=== PATIENT | male | born 1965 | race Caucasian/White ===

== ENCOUNTER 2020-09-16 11:15 | Outpatient (RCR) | payer BC, MEDICAID, SELFPAY ==
[2020-09-13 11:31] VITALS: BP 192/102; PULSE 75; RESP 18; TEMP 36.6; BMI 27.9
--- NOTE | 2020-09-13 13:43 | PCM.WC.HP ---
History of Present Illness Date of Service: 09/13/20 Chief Complaint: ulcer left medial ankle History of Wound: Michael is a 54 yo gentleman that presents to the wound healing center for evaluation and treatment of an area of his left medial ankle that has been draining intermittently over the last 6 months. He has been treated with oral antibiotics and has been using topical Bactroban for a few weeks and then Silvadene over the last several weeks without healing of the area. He denies very much drainage but there is discoloration of the area and itching with blistering at times. He does use chewing tobacco but is otherwise healthy and is not on any medications currently and has been off of work for several months awaiting a surgery for an inguinal hernia repair and has not been able to have this done due to concern for infection and open wound of the left medial ankle. He denies fever, chills, increased pain, odor. [facility] Home Medications multivitamin with minerals [Vitamin And Mineral] 1 cap PO DAILY 09/13/20 [History Last Taken Unknown] Allergy/AdvReac Type Severity Reaction Status Date / Time No Known Allergies Allergy Verified 09/13/20 11:27 Social History Smoking Status: Light Smoker (<10/day) ROS Constitutional Constitutional: Denies chills, fatigue, fever(s) or headache(s) Eyes Eyes: Denies blurry vision or loss of vision ENT HEENT: Denies dizziness, ear pain or headache(s) Cardiovascular Cardiovascular: Reports leg edema; Denies chest pain, claudication, dizziness or dyspnea Respiratory/Chest Respiratory/Chest: Denies cough or dyspnea Gastrointestinal Gastrointestinal: Denies abdominal pain, diarrhea, nausea or vomiting Genitourinary Genitourinary: Denies dysuria Musculoskeletal Musculoskeletal: Denies extremity pain Integumentary Integumentary: Reports erythema, pruritus, rash and skin ulcer Neurologic Neurologic: Denies dizziness or loss of vision Psychiatric Psychiatric: Denies depression, difficulty concentrating, homicidal ideation, irritability or suicidal thoughts Endocrine Endocrinology: Denies cold intolerance, heat intolerance, polydipsia or polyuria Hematologic/Lymphatic Hematologic/Lymphatic: Denies easy bleeding or easy bruising Vital Signs Vital Signs Vital Signs: 09/13/20 11:31 Temperature 97.8 F Temperature Source Temporal Pulse Rate 75 Respiratory Rate 18 Blood Pressure 192/102 H Blood Pressure Mean 132 Blood Pressure Source Monitor Blood Pressure Position Sitting Blood Pressure Location Left Arm Weight Weight: 90.904 kg Body Mass Index (BMI) 27.9 Physical Exam Const alert, oriented x3, no apparent distress and healthy appearing General Appearance: cooperative Nutritional Appearance: overweight HEENT normocephalic and head/scalp atraumatic Mouth: oral and palatal mucosa normal Eyes EOMs intact bilaterally General Eye: normal appearance of both eyes Neck no lymphadenopathy Lymph Lymphatic: no lymphadenopathy noted Chest Chest: symmetrical chest wall rise Resp normal respiratory effort Effort and Inspection: able to speak in complete sentences Auscultation: clear to auscultation bilaterally Cardio regular rate and regular rhythm GI normal to inspection, nondistended, normoactive bowel sounds Extremity General Extremity: edema left lower extremity mild Skin General Skin Exam: venous stasis and dermatitis Wounds: wounds noted Wound Narrative: in clinical panel - skin breakdown but no ulcer Neuro oriented x3 Speech: speech normal Debridement Note Debridement Note Post-Debridement Measurements and Additional Note: Post-Debridement Measurements/Treatment KARMA - Nurse 1 - General Ulcer Assessment Start: 09/13/20 11:27 Freq: Status: Active Protocol: EDWIGE Activity Type Activity Date Activity User E-Sign Co-Sign Detail Recorded Client Recorded Date Recorded By Document 09/13/20 11:31 [id number] 09/13/20 11:34 RB 09/13/20 11:31 - Today's Visit Information Type of service Initial Visit Arrival Mode Ambulatory Transfer Assistance None Patient Identification Verified (Name & Yes ) Patient Requires Transmission-Based No Precautions Height and Weight Height 5 ft 11 in Weight 90.904 kg Weight in Pounds 200.4 lbs Body Mass Index (BMI) 27.9 BMI Classification Overweight BSA - Andrés 2.11 Vital Signs Temperature (97.8 F-99.1 F) 97.8 F Temperature Source Temporal Pulse Rate (60-100) 75 Pulse Location Monitor Respiratory Rate (12-18) 18 Respiratory rate source Observation Blood Pressure (90/60-120/80) 192/102 H Blood Pressure Mean 132 Source Monitor Position Sitting Blood Pressure Location Left Arm History Since Last Visit- (Skip if this is Patient's initial visit) Have you changed medications since your No last visit? Any new allergies or adverse reactions No Had a fall/change in ADL's that may No increase risk of falls Signs or symptoms of abuse and/or No neglect since last visit Have you been in the hospital since your No last visit? Has dressing in place as prescribed Yes Has compression in place as prescribed No Has offloadiing in place as prescribed No Experienced any changes in pain level or No management Left Footwear Regular Shoe Right Footwear Regular Shoe Pain Scale: 0-10 Numeric Is Patient Pain Free? Yes Communication Assessment Preferred language Swedish Project Superintendent Required No Able to Read Yes Able to Write Yes Communication Tools None Right Hearing Abillity Normal Left Hearing Abillity Normal Visual Assistive Devices Glasses Teaching Assessment Preferences Verbal,Written, Demonstration Barriers to Learning None Readiness To Learn Good Willingness to Engage in Self Management Med Activies Readiness to Engage in Self Management Med Activities Anxiety Level Calm Cooperation Cooperative Perception Coherent Interest in Health Problem Asks Questions Education Importance Acknowledges Need Does Patient Smoke tobacco or other No substances Smoking Status Light Smoker (< 10/day) Is Patient Diabetic Yes Functional Assessment Recent Decline in Ability to Perform Denies Any Declines Assistive Device With Patient No Culture/Advent/Finishing Wire Sawyer Cultural/Advent Needs that may affect No Treatment Plan Would you allow our hospital director of social media marketing to No meet you for the purpose of spiritual/ emotional support? Finishing Wire Sawyer to contact place of sabianist No Teaching: Wound Center *Welcome to the Wound Center -Person Taught Patient,Family -Teaching Method Discussion, Demonstration -Response to teaching Verbalize understanding WC - Nurse 1 - General Ulcer Measurement Start: 09/13/20 11:27 Freq: Status: Active Protocol: Activity Type Activity Date Activity User E-Sign Co-Sign Detail Recorded Client Recorded Date Recorded By Document 09/13/20 11:34 SATURNINO [id number] 09/13/20 11:36 RB 09/13/20 11:34 Wound Center Nurse 1 1. L medial ankle -Combined with other wound No -Current Size (cm) - Length 0.1 -Current Size (cm) - Width 0.1 -Current Size (cm) - Depth 0.1 -Total Square Cm 0.01 -Photo Taken No -Tunneling No -Undermining/Tunneling No -Circular Undermining No -Exudate Amt Small -Exudate Type Serosanguineous -Wound Margin Flat & Intact -Granulation Amt Large (67-100%) -Granulation Quality [place],Red -Slough/Fibrin Yes -Necrosis Amt Small (1-33%) -Necrotic Tissue Type Adherent Slough -Structure Exposed N/A -Texture (Gloria-wound Skin Appearance) Excoriation -Moisture (Gloria-wound Skin Appearance) Assessed -Color (Gloria-wound Skin Appearance) Hemosiderin Staining -Tenderness on Palpation (Gloria-wound No Skin Appearance) -Ulcer Cleansing Wound Cleanser -Foul Odor after Cleansing No -Anesthetic Used 4% Lidocaine Solution Lower Limb Edema Present Yes Right Calf (cm) 36 Right Ankle (cm) 22 Left Calf (cm) 38.5 Left Ankle (cm) 24 WC - Nurse 2 - General Ulcer CM Notes Start: 09/13/20 11:27 Freq: Status: Active Protocol: Activity Type Activity Date Activity User E-Sign Co-Sign Detail Recorded Client Recorded Date Recorded By Document 09/13/20 11:45 MW [id number] 09/13/20 12:01 MW 09/13/20 11:45 Wound Center Nurse 2 1. L medial ankle -Time 11:45 -Correct Patient Yes -Correct Side, Site, Position Yes -Correct Procedure Yes -Procedure Performed No -Tunneling No -Undermining/Tunneling No -Circular Undermining No -Wound/Ulcer Outcome Not Healed -Ulcer Cleansing Rinsed/ Irrigated with Saline -Foul Odor after Cleansing No -Bioengineered Tissue No -Bleeding Controlled with Pressure -Offloading No -Treatment Response Procedure Tolerated Well Pain Scale: 0-10 Numeric Is Patient Pain Free? Yes - Nurse 3 - General Ulcer D/C NN Start: 09/13/20 11:27 Freq: Status: Active Protocol: Activity Type Activity Date Activity User E-Sign Co-Sign Detail Recorded Client Recorded Date Recorded By Document 09/13/20 12:13 DL [id number] 09/13/20 12:15 DL 09/13/20 12:13 Wound Care Nurse 3 1. L medial ankle -Ulcer Cleansing Rinsed/ Irrigated with Saline -Foul Odor after Cleansing No -Other Dressing Unna Boot Left -Multi-Layered Wrap Application Unna Boot - Left ($) Treatment Response Procedure Tolerated Well Pain Scale: 0-10 Numeric Is Patient Pain Free? Yes WC - Visit Discharge Discharge Condition Stable Ambulatory Status Ambulatory Transportation Private Auto Wound debrided: left medial ankle Laterality: Left No debridement was completed: No debridement was completed today (there is no slough or devitalized tissue present) Assessment/Plan Assessment/Plan (1) Venous stasis dermatitis of left lower extremity: CODE(S): I87.2 - Venous insufficiency (chronic) (peripheral) (2) Venous insufficiency of left lower extremity: CODE(S): I87.2 - Venous insufficiency (chronic) (peripheral) (3) PAD (peripheral artery disease): CODE(S): I73.9 - Peripheral vascular disease, unspecified PLAN: Michael's left medial ankle is evaluated today and no debridement is necessary. There is no evidence of infection or ulceration at this time. There is evidence of skin breakdown from edema and chronic venous stasis dermatitis of his medial ankle. Unna boot treatment will be applied today and will have him return in 1 week and have him use ABD and tubigrip compression for 1 week with return to wound center for re-check in 2 weeks. He was advised to call if he develops increased pain or drainage, fever or chills.
[2020-09-16 11:23] VITALS: BP 155/104; PULSE 86; RESP 18; TEMP 36.4; BMI 27.9
--- NOTE | 2020-09-27 13:32 | PN.PCM_ITS ---
History of Present Illness Date of Service: 09/27/20 Chief Complaint: ulcer left medial ankle History of Wound: Michael is a 54 yo gentleman that presents to the wound healing center for evaluation and treatment of an area of his left medial ankle that has been draining intermittently over the last 6 months. He has been treated with oral antibiotics and has been using topical Bactroban for a few weeks and then Silvadene over the last several weeks without healing of the area. He denies very much drainage but there is discoloration of the area and itching with blistering at times. He does use chewing tobacco but is otherwise healthy and is not on any medications currently and has been off of work for several months awaiting a surgery for an inguinal hernia repair and has not been able to have this done due to concern for infection and open wound of the left medial ankle. He denies fever, chills, increased pain, odor. Subjective Subjective Michael returns today for re-evaluation and follow up of treatment for his left medial ankle. He was scheduled to have vascular testing this week but he was ill and this has been rescheduled for 10/03/2020. He tolerated treatment with UNNA boot and his left medial ankle was doing well until 2 days ago when it became itchy and he scratched it and had skin breakdown and some intermittent serous drainage. He denies fever or chills, odor, or drainage. He is scheduled for hernia surgery on Wednesday09/30/20. Objective Data Objective Data Vital Signs: Vital Signs Temp Pulse Resp BP 97.6 F L 86 18 155/104 H 09/16/20 11:23 09/16/20 11:23 09/16/20 11:23 09/16/20 11:23 Weight: 90.904 kg Body Mass Index (BMI) 27.9 Physical Exam Const alert, oriented x3 and no apparent distress General Appearance: cooperative HEENT normocephalic and head/scalp atraumatic Mouth: oral and palatal mucosa normal Resp normal respiratory effort Cardio regular rate and regular rhythm Skin no wounds General Skin Exam: venous stasis and dermatitis Neuro Speech: speech normal Psych affect normal and speech normal Appearance: grossly normal Debridement Note Debridement Note Post-Debridement Measurements and Additional Note: Post-Debridement Measurements/Treatment WC - Nurse 1 - General Ulcer Assessment Start: 09/13/20 11:27 Freq: Status: Active Protocol: WC.LOWEXT Activity Type Activity Date Activity User E-Sign Co-Sign Detail Recorded Client Recorded Date Recorded By Document 09/13/20 11:31 RB [id number] 09/13/20 11:34 RB Document 09/16/20 11:23 DL [id number] 09/16/20 11:25 DL 09/13/20 09/16/20 11:31 11:23 WC - Today's Visit Information Type of service Initial Visit Nurse-only Visit Arrival Mode Ambulatory Ambulatory Transfer Assistance None Stretcher Patient Identification Verified (Name & Yes Yes ) Patient Requires Transmission-Based No No Precautions Height and Weight Height 5 ft 11 in Weight 90.904 kg Weight in Pounds 200.4 lbs Body Mass Index (BMI) 27.9 27.9 BMI Classification Overweight Overweight BSA - Andrés 2.11 Vital Signs Temperature (97.8 F-99.1 F) 97.8 F 97.6 F L Temperature Source Temporal Temporal Pulse Rate (60-100) 75 86 Pulse Location Monitor Monitor Respiratory Rate (12-18) 18 18 Respiratory rate source Observation Observation Blood Pressure (90/60-120/80) 192/102 H 155/104 H Blood Pressure Mean (mm Hg) 132 121 Source Monitor Monitor Position Sitting Blood Pressure Location Left Arm History Since Last Visit- (Skip if this is Patient's initial visit) Have you changed medications since your No No last visit? Any new allergies or adverse reactions No No Had a fall/change in ADL's that may No No increase risk of falls Signs or symptoms of abuse and/or No No neglect since last visit Have you been in the hospital since your No No last visit? Has dressing in place as prescribed Yes Yes Has compression in place as prescribed No Yes Has offloadiing in place as prescribed No N/A Experienced any changes in pain level or No No management Left Footwear Regular Shoe Regular Shoe Right Footwear Regular Shoe Regular Shoe Pain Scale: 0-10 Numeric Is Patient Pain Free? Yes Yes Communication Assessment Preferred language Romanian Cinder Worker Required No Able to Read Yes Able to Write Yes Communication Tools None Right Hearing Abillity Normal Left Hearing Abillity Normal Visual Assistive Devices Glasses Teaching Assessment Preferences Verbal,Written, Demonstration Barriers to Learning None Readiness To Learn Good Willingness to Engage in Self Management Med Activies Readiness to Engage in Self Management Med Activities Anxiety Level Calm Cooperation Cooperative Perception Coherent Interest in Health Problem Asks Questions Education Importance Acknowledges Need Does Patient Smoke tobacco or other No substances Smoking Status Light Smoker (< 10/day) Is Patient Diabetic Yes Functional Assessment Recent Decline in Ability to Perform Denies Any Declines Assistive Device With Patient No Culture/Restorationist/Tactical Debriefer Officer Cultural/Restorationist Needs that may affect No Treatment Plan Would you allow our [facility] theatrical variety agent to No meet you for the purpose of spiritual/ emotional support? Tactical Debriefer Officer to contact place of latter day No Teaching: Wound Center *Welcome to the Wound Center -Person Taught Patient,Family -Teaching Method Discussion, Demonstration -Response to teaching Verbalize understanding WC - Nurse 1 - General Ulcer Measurement Start: 09/13/20 11:27 Freq: Status: Active Protocol: Activity Type Activity Date Activity User E-Sign Co-Sign Detail Recorded Client Recorded Date Recorded By Document 09/13/20 11:34 RB [id number] 09/13/20 11:36 RB Document 09/16/20 11:23 DL [id number] 09/16/20 11:25 DL 09/13/20 09/16/20 11:34 11:23 Wound Center Nurse 1 1. L medial ankle -Combined with other wound No -Current Size (cm) - Length 0.1 -Current Size (cm) - Width 0.1 -Current Size (cm) - Depth 0.1 -Total Square Cm 0.01 -Photo Taken No -Tunneling No -Undermining/Tunneling No -Circular Undermining No -Exudate Amt Small Small -Exudate Type Serosanguineous Serosanguineous -Wound Margin Flat & Intact Flat & Intact -Granulation Amt Large (67-100%) Large (67-100%) -Granulation Quality [place],Red [place] -Slough/Fibrin Yes -Necrosis Amt Small (1-33%) None Present (0 %) -Necrotic Tissue Type Adherent Slough -Structure Exposed N/A N/A -Texture (Gloria-wound Skin Appearance) Excoriation Excoriation, Scarring,Rash -Moisture (Gloria-wound Skin Appearance) Assessed No Abnormality -Color (Gloria-wound Skin Appearance) Hemosiderin No Abnormality Staining -Temperature (Gloria-wound Skin No Abnormality Appearance) (Pt Warm) -Tenderness on Palpation (Gloria-wound No Skin Appearance) -Ulcer Cleansing Wound Cleanser Wound Cleanser -Foul Odor after Cleansing No No -Anesthetic Used 4% Lidocaine Solution Lower Limb Edema Present Yes Right Calf (cm) 36 Right Ankle (cm) 22 Left Calf (cm) 38.5 Left Ankle (cm) 24 WC - Nurse 2 - General Ulcer CM Notes Start: 09/13/20 11:27 Freq: Status: Active Protocol: Activity Type Activity Date Activity User E-Sign Co-Sign Detail Recorded Client Recorded Date Recorded By Document 09/13/20 11:45 MW [id number] 09/13/20 12:01 MW 09/13/20 11:45 Wound Center Nurse 2 -Time 11:45 -Correct Patient Yes -Correct Side, Site, Position Yes -Correct Procedure Yes -Procedure Performed No -Tunneling No -Undermining/Tunneling No -Circular Undermining No -Wound/Ulcer Outcome Not Healed -Ulcer Cleansing Rinsed/ Irrigated with Saline -Foul Odor after Cleansing No -Bioengineered Tissue No -Bleeding Controlled with Pressure -Offloading No -Treatment Response Procedure Tolerated Well Pain Scale: 0-10 Numeric Is Patient Pain Free? Yes - Nurse 3 - General Ulcer D/C NN Start: 09/13/20 11:27 Freq: Status: Active Protocol: Activity Type Activity Date Activity User E-Sign Co-Sign Detail Recorded Client Recorded Date Recorded By Document 09/13/20 12:13 DL [id number] 09/13/20 12:15 DL Document 09/16/20 11:25 DL [id number] 09/16/20 11:26 DL 09/13/20 09/16/20 12:13 11:25 Wound Care Nurse 3 1. L medial ankle -Ulcer Cleansing Rinsed/ Wound Cleanser Irrigated with Saline -Foul Odor after Cleansing No No -Other Dressing Unna Boot Left -Multi-Layered Wrap Application Unna Boot - Unna Boot - Left ($) Left ($) Treatment Response Procedure Procedure Tolerated Well Tolerated Well Pain Scale: 0-10 Numeric Is Patient Pain Free? Yes Yes WC - Visit Discharge Discharge Condition Stable Stable Ambulatory Status Ambulatory Ambulatory Transportation Private Auto Private Auto Wound debrided: left medial ankle Laterality: Left No debridement was completed: No debridement was completed today (no slough or open wound) Assessment/Plan Assessment/Plan (1) Venous stasis dermatitis of left lower extremity: CODE(S): I87.2 - Venous insufficiency (chronic) (peripheral) (2) Venous insufficiency of left lower extremity: CODE(S): I87.2 - Venous insufficiency (chronic) (peripheral) (3) PAD (peripheral artery disease): CODE(S): I73.9 - Peripheral vascular disease, unspecified PLAN: Michael's left medial ankle is evaluated today and no debridement is necessary. There is no open wound. There is no evidence of infection or ulceration at this time. From potential infection standpoint and skin integrity, he is clear for proposed hernia surgery. There is evidence of chronic venous stasis dermatitis of his medial ankle. His blood pressure has been elevated and he was advised to contact his PCP regarding evaluation and consideration of treatment. Will have him use Promogran to the medial ankle with changes daily over the weekend and cover with ABD and tubigrip compression and return in 1 week to review vascular testing that he has scheduled on 10/03/20. He was advised to call if he develops increased pain or drainage, fever or chills.
== END 2020-09-18 23:59 ==
LOC: WC 11:15
PROVIDERS: PCP Family Medicine; Visit Provider Family Medicine
DX: I87.2 Venous insufficiency (chronic) (peripheral) (principal); I73.9 Peripheral vascular disease, unspecified; F17.210 Nicotine dependence, cigarettes, uncomplicated
CPT/HCPCS: 29580; 99203; G0463

== ENCOUNTER 2020-09-27 10:00 | Outpatient (RCR) | payer BC, MEDICAID, SELFPAY ==
[2020-09-19 00:35] VITALS: BP 155/104; PULSE 86; RESP 18; TEMP 36.4
[2020-09-24 18:26] VITALS: BP 150/100; PULSE 86; RESP 18; TEMP 36.4; BMI 27.9
[2020-09-27 10:06] VITALS: BP 166/100; PULSE 77; RESP 18; TEMP 36.6; BMI 27.9
== END 2020-10-19 23:59 ==
LOC: WC 10:00
PROVIDERS: PCP Family Medicine; Visit Provider Family Medicine
DX: I87.2 Venous insufficiency (chronic) (peripheral) (principal); I73.9 Peripheral vascular disease, unspecified
CPT/HCPCS: 29580; 99213; G0463

== ENCOUNTER 2024-11-05 16:58 | Inpatient (IN) | payer MEDICARE, SELFPAY ==
--- OUTSIDE RECORDS SUMMARY | 2024-11-05 16:33 | XMS RPT_ITS | CCD ---
Author Organization [facility] Care Team Providers Care Coal Hauler Operator Name Role Phone BERYL HARRISON DO Admitting Unavailable BERYL HARRISON DO Attending Unavailable BERYL HRARISON DO Primary Care Unavailable Carol Zuniga Attending Unavailable Beryl Harrison Primary Care Unavailable BENJA PHILLIPS DO Admitting Unavailable BENJA PHILLIPS DO Primary Care Unavailable BENJA PHILLIPS DO Attending Unavailable TRUPTI PAINTER CNP Consulting Unavailable TRUPTI PAINTER CNP Referring Unavailable PROVIDER, UNKNOWN Consulting Unavailable PROVIDER, UNKNOWN Consulting Unavailable TRUPTI PAINTER CNP Consulting Unavailable TRUPTI PAINTER CNP Attending Unavailable TRUPTI PAINTER CNP Admitting Unavailable TRUPTI PAINTER CNP Primary Care Unavailable PROVIDER, UNKNOWN Consulting Unavailable PROVIDER, UNKNOWN Consulting Unavailable TRUPTI PAINTER CNP Primary Care Unavailable TRUPTI PAITNER CNP Consulting Unavailable TRUPTI PAINTER CNP Attending Unavailable TRUPTI PAINTER CNP Admitting Unavailable PROVIDER, UNKNOWN Consulting Unavailable PROVIDER, UNKNOWN Consulting Unavailable Allergies Allergy Classification Reported Allergen(s) Allergy Type Date of Onset Reaction(s) Facility (1 source) Adhesive agent; Translations: [ADHESIVE] Propensity to adverse reactions (disorder) [facility] Repository Problems Problem Classification Problem Date Documented Da te Episodic/Chronic Abdominal pain (4 sources) Right upper quadrant pain; Translations: [Left upper quadrant pain] Onset: 10-13-2024 Episodic Allergic reactions (1 source) Allergy status to other antibiotic agents status; Translations: [Allergy status to other antibiotic agents] Onset: 10-13-2024 Episodic Anxiety disorders (1 source) Anxiety disorder, unspecified; Translations: [Anxiety disorder, unspecified] Onset: 10-13-2024 Chronic Esophageal disorders (1 source) Gastro-esophageal reflux disease without esophagitis; Translations: [Gastro-esophagea l reflux disease without esophagitis] Onset: 10-13-2024 Chronic Essential hypertension (1 source) Essential (primary) hypertension; Translations: [Essential (primary) hypertension] Onset: 10-13-2024 Chronic Other aftercare (1 source) Other care home (current) drug therapy; Translations: [Other care home (current) drug therapy] Onset: 10-13-2024 Episodic Other gastrointestinal disorders (1 source) Irritable bowel syndrome without diarrhea; Translations: [Irritable bowel syndrome, unspecified] Onset: 10-13-2024 Chronic Results Test Name Value Interpretation Reference Range Facility US RUQ (GB/PANCREAS)on 11-03 US RUQ (GB/PANCREAS) [place] [address] Patient: DOTTIE CHILD Phone#: : 1965 Age: 58 Gender: M Pt. Type: Out Account: [id number] Location: [facility] Ordering: TRUPTI PAINTER Exam Date: 11/03/2024/6:58 Family Phys: Charge Code: 793450 Physician: Lincoln Order #: [id number] Dose#: PROCEDURE: RUQ (GB) ULTRASOUND COMPARISON: None. INDICATIONS: Abdominal pain FINDINGS: LIVER: There are 2 right hepatic cysts measuring 18 and 9 millimeters respectively. Normal size and echotexture. No significant masses. BILIARY: The gallbladder is distended. Low-level echoes present nearly completely filling gallbladder with scattered bright echoes consistent with sludge and calculi. The gallbladder wall is thickened at 5.3 millimeters. The common bile duct is dilated at 10.1 millimeters. Intraductal calculus is not demonstrated, but not visualized in its entirety. PANCREAS: The pancreas is partially obscured by bowel gas. RIGHT KIDNEY: Normal. No mass or obstruction. OTHER: Negative. CONCLUSION: 1. Gallbladder is distended and filled with sludge and small calculi. There is thickening of the gallbladder wall. There is no evidence of pericholecystic fluid. 2. The common bile duct is dilated at 10.1 millimeters. The duct is not visualized in its entirety. Intraductal calculus is not demonstrated. DICTATED BY: AGUSTO MARINA MD ON 11/03/2024 AT 8:42 APPROVED BY: AGUSTO MARINA MD ON 11/03/2024 AT 8:49 Normal [facility] AMYLASEon 11-02-2024 Amylase [Catalytic activity/Vol] 27 U/L Normal 25 - 115 [facility] Comment on above: Performed By: #### 2 53760 #### [place] [address] LIPASEon 11-02-2024 Lipase [Catalytic activity/Vol] 20.0 U/L Normal 15.0 - 78.0 [facility] Comment on above: Result Comment: *PLE ASE NOTE THAT RANGES FOR LIPASE HAVE CHANGED OF 03/19/23 DUE TO AN ASSAY UPDATE BY THE SIPHON OPERATOR.THE NEW ASSAY RANGE IS 6-250 U/L, WITH A REFERENCE RANGE OF 16-77 U/L. Performed By: #### 2 78653 #### [place] [address] C-REACTIVE PROTEINon 025 CRP 0.87 mg/dl Normal 0.00 - 0.90 [facility] Comment on above: Performed By: #### 2 64231 #### [place] [address] CBC + DIFFon 10-13-2024 Baso # 0.03 x10EE3/UL Normal 0.00 - 0.10 [facility] Comment on above: Performed By: #### 2 92827 #### [place] [address] Basophils/100 WBC (Bld) 0.3 % Normal 0.0 - 2.0 [facility] Comment on above: Performed By: #### 2 11117 #### [place] [address] CBC + DIFF Normal [facility] Comment on above: Result Comment: CBC- COMPLETE BLOOD COUNT Performed By: #### 2 95953 #### [address],[place] [address] EO # 0.15 x10EE3/UL Normal 0.00 - 0.50 [facility] Comment on above: Performed By: #### 2 70283 #### [facility],[address] [place] [address] Eosinophils/100 WBC (Bld) 1.4 % Normal 0.0 - 7.0 [facility] Comment on above: Performed By: #### 2 62988 #### [facility],[address] [place] [address] Erythrocyte distribution width (RBC) [Ratio] 13.4 % Normal 12.0 - 15.6 [facility] Comment on above: Performed By: #### 2 51169 #### [facility],[address] [place] [address] Hematocrit (Bld) [Volume fraction] 47.7 % Normal 40.0 - 52.0 [facility] Comment on above: Performed By: #### 2 37749 #### [facility],[address] [place] [address] Hemoglobin (Bld) [Mass/Vol] 16.6 g/dL Normal 13.0 - 17.5 [facility] Comment on above: Performed By: #### 2 77219 #### [facility],[address] [place] [address] 41873 Lymph # 1.42 x10EE3/UL Normal 0.80 - 2.80 [facility] Comment on above: Performed By: #### 2 25480 #### [address] [address] Lymphocytes/100 WBC (Bld) 13.8 % Low 20.0 - 45.0 [facility] Comment on above: Performed By: #### 2 22019 #### [facility],[address] [place] [address] 09459 MANUAL DIFF N/A Normal [facility] Comment on above: Performed By: #### 2 67138 #### [facility],[address] [place] [address] MCH (RBC) [Entitic mass] 30 pg Normal 27 - 33 [facility] Comment on above: Performed By: #### 2 88807 #### [facility],[address] [place] [address] MCHC 35 X10 3 Normal 32 - 36 [facility] Comment on above: Performed By: #### 2 84805 #### [facility],[address] [place], [place] [address] MCV (RBC) [Entitic vol] 87 fL Normal 81 - 98 [facility] Comment on above: Performed By: #### 2 43557 #### [facility],[address] [place] [address] Chilton # 0.58 x10EE3/UL Normal 0.20 - 1.00 [facility] Comment on above: Performed By: #### 2 19993 #### [facility],[address] [place] [address] 22449 MONOS % 5.6 % Normal 0.0 - 10.0 [facility] Comment on above: Performed By: #### 2 18635 #### [facility],[address] [place], [place] [address] Morphology Cole (Bld) [Interp] N/A Normal [facility] Comment on above: Performed By: #### 2 59231 #### [facility],[address] [place] [address] Neut # 8.13 x10EE3/UL High 1.50 - 7.10 [facility] Comment on above: Performed By: #### 2 05548 #### [facility],[address] [place], [place] [address] Neutrophils/100 WBC (Bld) 78.8 % High 46.0 - 76.0 [facility] Comment on above: Performed By: #### 2 44973 #### [facility],[address] [place] [address] 16096 PLATELET 323 x10EE3/UL Normal 150 - 450 [facility] Comment on above: Performed By: #### 2 20933 #### [facility],[address] [place] [address] 67583 Platelet mean volume (Bld) [Entitic vol] 7.2 fL Normal 6.4 - 10.5 [facility] Comment on above: Result Comment: AUTO MATED DIFFERENTIAL Performed By: #### 2 60336 #### [facility],[address] [place] [address] 90152 RBC 5.48 x 10EE6/UL Normal 4.50 - 6.00 [facility] Comment on above: Performed By: #### 2 73954 #### [facility],[address] [place] [address] 25616 WBC 10.3 x 10EE3/UL Normal 4.5 - 10.8 [facility] Comment on above: Performed By: #### 2 20756 #### [facility],[address] [place] [address] 41267 CMP with eGFRon 10-13-2024 AGE 58 years Normal [facility] Comment on above: Performed By: #### 2 54502 #### [facility],[address] [place] [address] 90631 Albumin [Mass/Vol] 4.0 g/dL Normal 3.4 - 5.0 [facility] Comment on above: Performed By: #### 2 14389 #### [facility],[address] [place] [address] 37024 Albumin/Globulin [Mass ratio] 1.1 {ratio} Normal 0.9 - 1.6 [facility] Comment on above: Performed By: #### 2 45403 #### [facility],[address] [place] [address] 02926 ALK PHOS 94 U/L Normal 46 - 116 [facility] Comment on above: Performed By: #### 2 15414 #### [facility],[address] [place] [address] 30118 ALT [Catalytic activity/Vol] 28 U/L Normal 16 - 63 [facility] Comment on above: Performed By: #### 2 04096 #### [facility],[address] [place] [address] 22846 Anion gap [Moles/Vol] 14 mmol/L Normal 10 - 20 [facility] Comment on above: Performed By: #### 2 36280 #### [facility],[address] [place] [address] 77402 AST [Catalytic activity/Vol] 16 U/L Normal 15 - 37 [facility] Comment on above: Performed By: #### 2 06581 #### [facility],[address] [place] [address] 67140 B/C RATIO 13 ratio Normal 0 - 30 [facility] Comment on above: Performed By: #### 2 54016 #### [facility],[address] [place] [address] 84655 Bilirubin [Mass/Vol] 0.6 mg/dL Normal 0.2 - 1.0 [facility] Comment on above: Performed By: #### 2 46489 #### [facility],[address] [place] [address] 32424 Calcium [Mass/Vol] 9.1 mg/dL Normal 8.5 - 10.1 [facility] Comment on above: Performed By: #### 2 77622 #### [facility],[address] [place] [address] 90879 Chloride [Moles/Vol] 101 mmol/L Normal 98 - 107 [facility] Comment on above: Performed By: #### 2 21307 #### [facility],[address] [place] [address] 78326 CMP with eGFR Normal [facility] Comment on above: Result Comment: COMP REHENSIVE METABOLIC PANEL Performed By: #### 2 05786 #### [facility],[address] [place] [address] 20656 CO2 [Moles/Vol] 24.6 mmol/L Normal 21.0 - 32.0 [facility] Comment on above: Performed By: #### 2 95937 #### [facility],[address] [place] [address] 55516 Creatinine [Mass/Vol] 1.07 mg/dL Normal 0.70 - 1.30 [facility] Comment on above: Performed By: #### 2 66657 #### [facility],[address] [place] [address] 18984 GFR/1.73 sq M.predicted among non-blacks MDRD (S/P/Bld) [Vol rate/Area] mL/min/{1.73_m2} Normal 60 - 999 [facility] Comment on above: Performed By: #### 2 74061 #### [facility],[address] [place] [address] 55021 Result Comment: ACCO RDING TO THE NATIONAL KIDNEY DISEASE EDUCATION PROGRAM(NKDE), A NORMAL eGFR IS A VALUE GREATER THAN OR EQUAL TO 60 ML/MIN/1.73 SQ METERS. CHRONIC KIDNEY DISEASE: <60mL/MIN/1.73 SQ METERS KIDNEY FAILURE: <15mL/MIN/1.73 SQ METERS THIS TEST SHOULD ONLY BE USED FOR PATIENTS 18 YEARS OF AGE AND OLDER. Globulin (S) [Mass/Vol] 3.7 g/dL Normal 1.5 - 3.8 [facility] Comment on above: Performed By: #### 2 84965 #### [facility],[address] [place] [address] 64190 Glucose [Mass/Vol] 165 mg/dL High 74 - 106 [facility] Comment on above: Performed By: #### 2 63604 #### [facility],[address] [place] [address] 98537 Potassium [Moles/Vol] 3.7 mmol/L Normal 3.5 - 5.1 [facility] Comment on above: Performed By: #### 2 99069 #### [address] [address] Protein [Mass/Vol] 7.7 g/dL Normal 6.4 - 8.2 [facility] Comment on above: Performed By: #### 2 24554 #### [address] [address] Sodium [Moles/Vol] 136 mmol/L Normal 136 - 145 [facility] Comment on above: Performed By: #### 2 60036 #### [address] [address] Urea nitrogen [Mass/Vol] 14 mg/dL Normal 7 - 18 [facility] Comment on above: Performed By: #### 2 68097 #### [address] [address] ED MED ADMINISTRATION DETAIL on 10-13-2024 ED MED ADMINISTRATION DETAIL Replenishment Merchandising Associate Medication Administration Record [place] [id number] 10/13/2024 Patient: DOTTIE CHILD Sex: Male : 1965 Age: 58y MEASUREMENTS: Wt: 99.8 kg, Ht/Topher: 71.0 in, BMI: 30.68 ALLERGIES: azithromycin Medication Ordered Medication Administration Date/Time IV NS 0.9 % 1000 03:06 10/13 IV NS 0.9 % 1000 mL started in bag#1 1000 mL at Started mL at 999 mL/hr 999 mL/hr via Site# 1. Allergies verified and confirmed 5 rights. 03:06 10/13/2024 (NOW x1) Information reviewed with patient including reason for taking this Kulwinder Kelly R.N. medication. Verbalizes understanding. - 03:07 Kulwinder Kelly R.N. Stopped 04:23 10/13/2024 04:23 10/13 Medication Discontinued: bag #1 infused. Total Abigail Mares.Gem amount infused: 1000 mL. IV patency established. IV site checked: Scanned no pain, redness, or swelling. IV flushed thoroughly post-medication administration. - 05:43 Kulwinder Kelly R.N. HYDROmorphone 03:09 10/13 HYDROmorphone (Dilaudid) IVP 0.5 mg given via Given (Dilaudid) IVP 0.5 Site# 1. Allergies verified and confirmed 5 rights. IV patency 03:09 10/13/2024 mg (NOW x1, HIGH established. IV site checked: no pain, redness, or swelling. IV Kulwinder Kelly R.N. ALERT flushed thoroughly pre-medication administration. IVP given by Scanned MEDICATION) nurse. Information reviewed with patient including reason for taking this medication. Verbalizes understanding. Medication Wastage: 0.5 mg wasted. - 03:13 Kulwinder Kelly R.N. 1 of 2 Replenishment Merchandising Associate Medication Ordered Medication Administration Date/Time Ondansetron IVP 4 03:07 10/13 Ondansetron IVP 4 mg given via Site# 1. Allergies Given mg (NOW x1) verified and confirmed 5 rights. IV patency established. IV site 03:07 10/13/2024 checked: no pain, redness, or swelling. IV flushed thoroughly Kulwinder Kelly R.N. pre-medication administration. IVP given by nurse. Information Scanned reviewed with patient including reason for taking this medication. Verbalizes understanding. - 03:07 Kulwinder Kelly R.N. KetorOLAC 03:36 10/13 KetorOLAC (Toradol) IVP 15 mg given via Site# 1. Given (Toradol) IVP 15 mg Allergies verified and confirmed 5 rights. IV patency established. IV 03:36 10/13/2024 (NOW x1) site checked: no pain, redness, or swelling. IV flushed thoroughly Kulwinder Kelly R.N. pre-medication administration. IVP given by nurse. Information Scanned reviewed with patient including reason for taking this medication. Verbalizes understanding. Medication Wastage: 15 mg wasted. - 03:38 Kulwinder Kelly R.N. HYDROmorphone Completed (Dilaudid) IVP 1 mg 05:49 10/13/2024 Kulwinder Kelly R.N. Order Comments: 05:49 10/13/2024 Order Completed. Kulwinder Kelly R.N. HYDROmorphone Completed (Dilaudid) IVP 1 mg 05:49 10/13/2024 Kulwinder Kelly R.N. Order Comments: 05:49 10/13/2024 Order Completed. Kulwinder Kelly R.N. 2 of 2 Normal [facility] ED NURSES CLINICAL NOTEon ED NURSES CLINICAL NOTE Nurse Narrative Nurse Clinical Narrative [place] [id number] [facility] [place] [address] [id number] 10/13/2024 02:43:00 Patient: DOTTIE CHILD Sex: Male : 1965 Age: 58y Disposition: Discharge Disposition Decision Time: 05:45 10/13/2024 Departure Time: 05:54 10/13/2024 TRIAGE Triage time: 02:45 10/13/2024. -- 02:50 10/13/24 EDT Kulwinder Kelly R.N. Arrived by private vehicle. Historian: (patient and family). Accompanied by spouse. Acuity: LEVEL 3. Chief Complaint: ABDOMINAL PAIN, NAUSEA and VOMITING. 02:45 10/13/24. Alert. This started yesterday. Onset. (started aith abd pain at 10 am thought it was his GERD, take med for it but did not improve, began with N/V at midnight, now extremely tender over left abd wall.). The patient has had nausea, vomiting and abdominal pain. Treatment ORIENTAL RUG REPAIRER: None. SEPSIS SCREEN: NEGATIVE. SIRS criteria negative. No possible sources of infection. -- 02:58 10/13/24 EDT Kulwinder Kelly R.N. 02:47 10/13/24. BP: 191/116 MAP: 165 mmHg. HR: 72 bpm. -- 03:25 10/13/24 EDT Kulwinder Kelly R.N. 02:58 10/13/24. HR: 71. RR: 18. O2 saturation: 98% Temperature: 97.6 F (oral). Pain level now 10/10. -- 02:58 10/13/24 EDT Kulwinder Kelly R.N. 03:01 10/13/24. BP: 217/131 MAP: 162 mmHg. HR: 77 bpm. -- 03:25 10/13/24 EDT Kulwinder Kelly R.N. 03:12 10/13/24. BP: 168/99 MAP: 122 mmHg. HR: 76 bpm. -- 03:25 10/13/24 EDT Kulwinder Kelly R.N. 1 of 5 Nurse Narrative 03:22 10/13/24. HR: 65 bpm. O2 saturation: 99%. -- 03:10/13/24 EDT Kulwinder Kelly R.N. Measurements: 02:54 10/13/24 Wt: 99.8 kg, Ht/Topher: 71.0 in, BMI: 30.68 -- 02:54 10/13/24 EDT Kulwinder Kelly R.N. Medications: sertraline 100 mg tablet: 1 tablet once a day. -- 03:10/13/24 EDT Kulwinder Kelly R.N. pantoprazole 40 mg tablet,delayed release: 1 tablet twice a day. -- 03:10/13/24 EDT Kulwinder Kelly R.N. losartan 50 mg tablet: 1 tablet once a day. -- 03:10/13/24 EDT Kulwinder Kelly R.N. Allergy Relief (cetirizine) 10 mg tablet: TAKE ONE TABLET BY MOUTH DAILY -- 03:10/13/24 EDT Kulwinder Kelly R.N. 02:45 10/13/24. Preferred Pharmacy: ([facility]). -- 02:58 10/13/24 EDT Kulwinder Kelly R.N. Allergies: azithromycin -- 02:52 10/13/24 EDT Kulwinder Kelly R.N. Problems: Hypertension -- 02:52 10/13/24 EDT Kulwinder Kelly R.N. Gastroesophageal Reflux Disease -- 02:52 10/13/24 EDT Kulwinder Kelly R.N. Anxiety disorder -- 02:10/13/24 EDT Kulwinder Kelly R.N. Surgeries: Sinus Surgery -- 02:57 10/13/24 EDT Kulwinder Kelly R.N. Hernia Repair -- 02:57 10/13/24 EDT Kulwinder Kelly R.N. Appendectomy -- 03:25 10/13/24 EDT Kulwinder Kelly R.N. History 02:45 10/13/24. PAST MEDICAL HX: Immunizations: up-to-date. SOCIAL HX: Never smoker. Occasional alcohol use. No drug use. The patient has not traveled outside the [place] Infectious disease exposure: No infectious disease exposure. 2 of 5 Nurse Narrative ABUSE ASSESSMENT: The patient answered yes to the question(s) Do you feel safe in your home? and no to the question(s) Are you afraid to go home?. SELF HARM ASSESSMENT: Self harm assessment was performed. The patient answered no to the question(s) Have you recently felt down, depressed, or hopeless? and Do you have thoughts of harming or killing yourself?. FALL RISK ASSESSMENT: Fall risk assessment completed. No risk factors identified. -- 02:58 10/13/24 CAYDEN Kelly R.N. Interventions 02:45 10/13/24. Identification band on patient. Advanced care plan. It is unknown if patient has advanced directive. -- 02:58 10/13/24 EDT Kulwinder Kelly R.N. PHYSICAL ASSESSMENT 03:12 10/13/24. Ambulatory to room. Patient gowned. GENERAL / NEURO / PSYCH: Alert. Oriented X 4. Appears in pain, anxious and in distress. RESPIRATORY: Respirations not labored. CVS: Normal sinus rhythm noted. GI / : The patient has had nausea. Obesity. Abdominal distention with tenderness to palpation ( states abd is at baseline, appears distended). Abdominal tenderness diffusely and in the left upper quadrant. SKIN: Skin is warm and dry. -- 03:27 10/13/24 EDKanwal Kelly R.N. NURSING PROGRESS NOTES 02:52 10/13/24. Site #1 started in the left antecubital space with an 18g angiocath; 1 attempt. Blood drawn: rainbow set and hernadez tube(s). Saline lock flushed with 5 mL saline. -- 02:56 10/13/24 CAYDEN Chacon R.N. 02:57 10/13/24. 12-LEAD EKG: EKG time: (02:45 10/13/2024). 12-Lead EKG was ordered, performed by me and shown to the ED physician. -- 02:57 10/13/24 EDT Laura Chacon R.N. 03:06 10/13/24. IV NS 0.9 % 1000 mL started in bag#1 1000 mL at 999 mL/hr via Site# 1. Allergies verified and confirmed 5 rights. Information reviewed with patient including reason for taking this medication. Verbalizes understanding. -- 03:07 10/13/24 EDT Leonor (more content not included)... Normal [facility] ED ORDER SHEET (CPOE ONLY)on 10-13-2024 ED ORDER SHEET (CPOE ONLY) Order Sheet Order Sheet [facility] [address] [place] [address] [id number] 10/13/2024 Patient: DOTTEI CHILD Sex: Male : 1965 Age: 58y MEASUREMENTS: Wt: 99.8 kg, Ht/Topher: 71.0 in, BMI: 30.68 ALLERGIES: azithromycin MEDICATION/IV/DRIP/FLU ID ORDERS Order Description Priority Entered Acknowledged Completed IV NS 0.9 %1000 mL at 999 02:50 10/13/2024 02:59 03:07 mL/hr (NOW x1) Benja Phillips D.O. 10/13/2024 10/13/2024 Kulwinder Mares R.N. R.N. HYDROmorphone (Dilaudid) 02:51 10/13/2024 02:59 03:13 IVP0.5 mg (NOW x1, HIGH Benja Phillips D.O. 10/13/2024 10/13/2024 ALERT MEDICATION) Kulwinder Mares R.N. R.N. Ondansetron IVP4 mg (NOW x1) 02:51 10/13/2024 02:59 03:07 Benja Phillips D.O. 10/13/2024 10/13/2024 Kulwinder Mares R.N. RAaron. KetorOLAC (Toradol) IVP15 mg 03:18 10/13/2024 03:25 03:38 (NOW x1) Benja Phillips D.O. 10/13/2024 10/13/2024 Kulwinder Mares R.N. R.N. 1 of 4 Order Sheet HYDROmorphone (Dilaudid) 04:18 10/13/2024 05:49 05:49 IVP1 mg (NOW x1, HIGH ALERT Benja Phillips D.O. 10/13/2024 10/13/2024 MEDICATION) Kulwinder Mares R.N. R.N. Order Comments: 05:49 10/13/2024: Order Completed. Kulwinder Kelly R.N. Reason for ordering with alerts: Clinical consideration given --04:18 10/13/2024 Benja Phillips D.O. HYDROmorphone (Dilaudid) 05:48 10/13/2024 05:49 05:49 IVP1 mg (NOW x1, HIGH ALERT Kulwinder Kelly R.N. 10/13/2024 10/13/2024 MEDICATION) Kulwinder Mares R.N. R.N. Order Comments: 05:49 10/13/2024: Order Completed. Kulwinder Kelly R.N. Reason for ordering with alerts: Clinical consideration given --04:18 10/13/2024 Benja Phillips D.O. LAB ORDERS Order Description Priority Entered Acknowledged Collected Completed CBC w Diff Stat Stat 02:50 10/13/2024 02:58 10/13/2024 03:17 10/13/2024 Amy Bowden Charles Wilbur, R.N. R.NJacki CMP Stat Stat 02:50 10/13/2024 02:58 10/13/2024 03:17 10/13/2024 Amy Bowden Charles Wilbur, R.N. R.NJacki Troponin-I Stat Stat 02:50 10/13/2024 02:58 10/13/2024 03:17 10/13/2024 Amy Bowden Charles Wilbur, R.N. RJackiNJacki EKG - ED Stat Stat 02:50 10/13/2024 02:58 10/13/2024 03:17 10/13/2024 Amy Bowden Charles Wilbur, R.N. RJakciNJacki BNP Stat Stat 02:50 10/13/2024 02:58 10/13/2024 03:17 10/13/2024 Amy Bowden Charles Wilbur, SimonaN. RSteven 2 of 4 Order Sheet Lactate, Serum Stat Stat 02:50 10/13/2024 02:58 10/13/2024 03:17 10/13/2024 Amy Bowden Charles Wilbur, Abigail.N. R.N. Urinalysis Stat Stat 02:50 10/13/2024 02:58 10/13/2024 04:28 10/13/2024 Amy Bowden Charles Wilbur, R.N. R.N. Lipase Stat Stat 02:50 10/13/2024 02:58 10/13/2024 03:17 10/13/2024 Amy Bowden Charles Wilbur, R.N. R.NJacki CRP Stat Stat 02:50 10/13/2024 02:58 10/13/2024 03:17 10/13/2024 Amy Bowden Charles Wilbur, Abigail.N. R.NJacki DIAGNOSTIC STUDY ORDERS Order Description Priority Entered Acknowledged Completed CT ABD/PEL w Cont Stat Stat 02:49 10/13/2024 02:58 03:17 Benja Phillips D.O. 10/13/2024 10/13/2024 Kulwinder Mares R.N. R.N. Reason for Study: Abdominal Pain STAFF ORDERS Order Description Priority Entered Acknowledged Collected Completed IV Saline Lock 02:50 10/13/2024 02:59 10/13/2024 03:17 10/13/2024 Amy Bowden Charles Wilbur, R.N. R.N. Vital Signs every 30 02:50 10/13/2024 02:59 10/13/2024 03:17 10/13/2024 minutes Amy Bowden Charles Wilbur, R.N. R.N. Real Estate Marketing Coordinator 02:50 10/13/2024 02:58 10/13/2024 03:17 10/13/2024 Amy Bowden Charles Wilbur, R.N. R.NJacki 3 of 4 Order Sheet Oxygen titrate to 92% 02:50 10/13/2024 02:59 10/13/2024 03:17 10/13/2024 Amy Bowden Charles Wilbur, R.N. R.N. [Electronically signed by Benja Phillips D.O. (10/13/2024 07:02 EDT)] 4 of 4 Normal [facility] ED PHYSICIAN CLINICAL REPORT on 10-13-2024 ED PHYSICIAN CLINICAL REPORT Narrative Physician Clinical Narrative [facility] [address] [place] [address] [id number] 10/13/2024 02:43:00 Patient: DOTTIE CHILD Sex: Male : 1965 Age: 58y Disposition: Discharge Disposition Decision Time: 05:45 10/13/2024 Departure Time: 05:54 10/13/2024 Measurements Wt: 99.8 kg, Ht/Topher: 71.0 in, BMI: 30.68 Initial Vital Sign Measured Time BP MAP HR RR O2Sat ETCO2 Temp Pain GCS RTS 02:47 10/13/2024 191/116 165 72 Time Seen: 02:42 10/13/2024. Arrived- By private vehicle. Historian- patient. HISTORY OF PRESENT ILLNESS Chief Complaint: ABDOMINAL PAIN. It is described as sharp and it is described as located in the periumbilical area and in the left upper quadrant. This started last night and is still present (worse). At its maximum, severity described as 10 / 10. When seen in the E.D., severity described as 10 / 10. The patient has had nausea and vomiting. Similar symptoms previously. None. Recent medical care: Not recently seen/assessed. REVIEW OF SYSTEMS 1 of 13 Narrative CVS: No chest pain. NEUROLOGICAL: No headache. CONSTITUTIONAL: No fever or chills. The patient has not had weight loss. : No difficulty with urination, pain with urination or urinary frequency. RESPIRATORY: No difficulty breathing or cough. MUSCULOSKELETAL: No joint pain or back pain. SKIN: No skin rash. GI: No constipation, black stools or bloody stools. EYES: No blurred vision. THROAT: No sore throat. PAST HISTORY See nurses notes. Anxiety disorder Gastroesophageal Reflux Disease Hypertension Surgeries: Appendectomy Hernia Repair Sinus Surgery Medications: Allergy Relief (cetirizine) 10 mg tablet: TAKE ONE TABLET BY MOUTH DAILY losartan 50 mg tablet: 1 tablet once a day. pantoprazole 40 mg tablet,delayed release: 1 tablet twice a day. sertraline 100 mg tablet: 1 tablet once a day. Allergies: azithromycin SOCIAL HISTORY Never smoker. Occasional alcohol use. No drug use. ADDITIONAL NOTES The nursing notes have been reviewed. PHYSICAL EXAM Appearance: Alert. Oriented X3. Appears to be in pain. Eyes: Pupils equal, round and reactive to light. 2 of 13 Narrative ENT: Nose normal. Pharynx normal. Neck: Normal inspection. Neck supple. CVS: Normal heart rate and rhythm. Heart sounds normal. Pulses normal. Respiratory: No respiratory distress. Breath sounds normal. Chest nontender. Abdomen: Soft. Moderate tenderness in the left upper quadrant and periumbilical area with guarding present. No rebound tenderness. Abnormal bowel sounds: diminished. No organomegaly. No mass. No distention. Skin: Skin warm and dry. No rash. Extremities: Extremities exhibit normal ROM. No lower extremity edema. Neuro: Oriented X 3. No motor deficit. No sensory deficit. LABS, X-RAYS, AND EKG 12-LEAD EKG: EKG time: 02:45 10/13/2024. Normal sinus rhythm. Rate: 72. Normal P waves. Left axis deviation. Normal ST and T waves. The study has been interpreted contemporaneously by me. The EKG appears to be a good tracing. Interpretation time: 02:46 10/13/2024. CT Abdomen - Pelvis: Mild left colon and sigmoid colon diverticulosis. Small umbilical hernia contains only fat. Small right and left inguinal hernias containing only fat. Left greater than right. Mildly enlarged prostate Tahir. Mild right and left renal cortical volume loss. No acute process seen in the gallbladder spleen pancreas adrenal glands and kidneys. Small right hepatic cyst. No pericardial effusion. Normal heart size. Dense calcified plaque along the abdominal aorta and common iliac arteries with multiple moderate in mild stenosis due to calcified plaque. Multilevel degenerative disc disease throughout the lumbar spine with endplate and facet hypertrophic changes. Appendix is not seen. Abdomen - pelvic CT performed with IV contrast. The study was interpreted by the radiologist. Interpretation time: 05:28 10/13/2024. Laboratory Tests: CBC + DIFF Final CHAVA: 10/13/2024 02:52:00 EDT MsgRcvd: 10/13/2024 03:33 EDT Lab Test Result Reference Status Received Comments 10/13/2024 03:33 CBC-COMPLETE CBC + DIFF Final EDT BLOOD COUNT 10/13/2024 03:33 WBC 10.3 x 10/UL 4.5 - 10.8 Final EDT 3 of 13 Narrative Lab Test Result Reference Status Received Comments 10/13/2024 03:33 RBC 5.48 x 10/UL 4.50 - 6.00 Final EDT 10/13/2024 03:33 HEMOGLOBIN 16.6 g/dl 13.0 - 17.5 Final EDT 10/13/2024 03:33 HEMATOCRIT 47.7 % 40.0 - 52.0 Final EDT 10/13/2024 03:33 MCV 87 fl 81 - 98 Final EDT 10/13/2024 03:33 MCH 30 pg 27 - 33 Final EDT 10/13/2024 03:33 MCHC 35 X10 3 32 - 36 Final EDT 10/13/2024 03:33 RDW/CV 13.4 % 12.0 - 15.6 Final EDT 10/13/2024 03:33 PLATELET 323 x10/UL 150 - 450 Final EDT 10/13/2024 03:33 AUTOMATED MPV 7.2 (more content not included)... Normal [facility] ED [facility] 10-13-[address] [place] [address] [id number] 10/13/2024 Patient: DOTTIE CHILD Sex: Male : 1965 Age: 58y Item Facility Professional Category Description Code Code Quantity Fee Total Drugs Normal Saline 470722 1 $0.00 $0.00 1000cc (488853) Nurse/E/M EMERGENCY 568781 1 $0.00 $0.00 DEPARTMENT VISIT HIGH/URGENT SEVERITY (19269-11) Nurse/IV/IM/Infusions Hydration 991147 1 $0.00 $0.00 additional hour (55936) Nurse/IV/IM/Infusions IVP additional 915035 2 $0.00 $0.00 push (38388) Nurse/IV/IM/Infusions IVP initial 920981 1 $0.00 $0.00 (82581) Grand Total $0.00 Providers Benja Phillips D.O. 1 of 2 Superbil Chief Complaint ABDOMINAL PAIN. Principal Diagnosis Acute left upper quadrant abdominal pain. Acute irritable bowel syndrome with abdominal pain. No diarrhea. ICD-10 Codes R10.12: Left upper quadrant pain K58.9: Irritable bowel syndrome, unspecified 2 of 2 Normal [facility] ED VISIT SUMMARYon ED VISIT SUMMARY Visit Overview Visit Overview [address] [address] [id number] 10/13/2024 Patient: DOTTIE CHILD Sex: Male : 1965 Age: 58y 10/13/2024 07:02 AM EDT ED Arrival:02:43 10/13/2024 EDT Status: Recent Travel:no Language:eng Adv Directive:Unknown Isolation Status: Ethnicity:N Fall Risk:no risk Infectious Disease Exposure:no Measurements:5'11 / 180.3 Self-Harm Status:risk Sepsis Screen:negative cm 220.0 lb / 99.8 kg Chief Complaint:ABDOMINAL PAIN, NAUSEA, VOMITING, and (started aith abd pain at 10 am thought it was his GERD, take med for it but did not improve, began with N/V at midnight, now extremely tender over left abd wall.) ALLERGIES azithromycin HOME MEDICATIONS Allergy Relief (cetirizine) 10 mg tablet: TAKE ONE TABLET BY MOUTH DAILY 1 of 3 Visit Overview losartan 50 mg tablet: 1 tablet once a day. pantoprazole 40 mg tablet,delayed release: 1 tablet twice a day. sertraline 100 mg tablet: 1 tablet once a day. PAST MEDICAL HISTORY / PROBLEMS Anxiety disorder Gastroesophageal Reflux Disease Hypertension Immunizations: up-to-date See nurses notes PAST SURGICAL HISTORY Appendectomy Hernia Repair Sinus Surgery SOCIAL HISTORY Smoking status: No Alcohol use: Yes Drug use: No ED COURSE MEDICATIONS GIVEN IN EMERGENCY DEPARTMENT 03:06 10/13/24 IV NS 0.9 % 1000 mL 999 mL/hr 03:07 07/25/25 Ondansetron IVP 4 mg 03:09 10/13/24 HYDROmorphone (Dilaudid) IVP 0.5 mg 03:36 10/13/24 KetorOLAC (Toradol) IVP 15 mg IV SITE INFORMATION INTAKE OUTPUT REASSESMENT (most recent) 2 of 3 Visit Overview 05:44 10/13/24. Reassessment after medication administered. Pain gone now. VITAL SIGNS First Vitals Last Vitals Temp 02:47 10/13/24 Temp 05:52 10/13/24 BP 02:47 10/13/24 191/116 BP 05:52 10/13/24 HR 02:47 10/13/24 72 HR 05:52 10/13/24 77 RR 02:47 10/13/24 RR 05:52 10/13/24 O2 Sat 02:47 10/13/24 O2 Sat 05:52 10/13/24 95% Pain 02:47 10/13/24 Pain 05:52 10/13/24 ETCO2 02:47 10/13/24 ETCO2 05:52 10/13/24 GCS 02:47 10/13/24 GCS 05:52 10/13/24 RTS 02:47 10/13/24 RTS 05:52 10/13/24 PROCEDURES NURSING INTERVENTIONS LABS / STUDIES LABS / STUDIES ORDERED BNP CBC w Diff CMP CRP CT ABD/PEL w Cont EKG - ED Lactate, Serum Lipase Troponin-I Urinalysis CLINICAL IMPRESSION ACUTE IRRITABLE BOWEL SYNDROME WITH ABDOMINAL PAIN. NO DIARRHEA ACUTE LEFT UPPER QUADRANT ABDOMINAL PAIN 3 of 3 Normal [facility] ED VITALS FLOW SHEETon 10-13 ED VITALS FLOW SHEET Vitals Vital Sign Flow Sheet [address] [place] [address] [id number] 10/13/2024 Patient: DOTTIE CHILD Sex: Male : 1965 Age: 58y Measurements Wt: 99.8 kg, Ht/Topher: 71.0 in, BMI: 30.68 Measured Time BP MAP HR RR O2Sat ETCO2 Temp Pain GCS RTS 05:52 10/13/2024 77 95% 05:47 10/13/2024 65 94% 05:44 10/13/2024 16 2 05:42 10/13/2024 67 93% 05:42 10/13/2024 169/95 108 64 05:37 10/13/2024 67 94% 05:32 10/13/2024 67 94% 05:27 10/13/2024 173/90 117 68 05:27 10/13/2024 69 91% 05:22 10/13/2024 74 94% 05:17 10/13/2024 74 91% 05:12 10/13/2024 64 93% 05:12 10/13/2024 160/91 116 62 05:07 10/13/2024 66 94% 05:02 10/13/2024 66 92% 1 of 3 Vitals Measured Time BP MAP HR RR O2Sat ETCO2 Temp Pain GCS RTS 04:57 10/13/2024 67 92% 04:57 10/13/2024 165/98 106 65 04:52 10/13/2024 65 93% 04:47 10/13/2024 71 92% 04:42 10/13/2024 62 92% 04:42 10/13/2024 173/93 111 61 04:37 10/13/2024 67 95% 04:32 10/13/2024 57 95% 04:27 10/13/2024 62 94% 04:10/13/2024 175/96 112 61 04:22 10/13/2024 68 95% 04:17 10/13/2024 77 94% 04:12 10/13/2024 71 96% 04:12 10/13/2024 172/96 121 64 03:50 10/13/2024 168/96 120 59 03:37 10/13/2024 59 97% 03:32 10/13/2024 65 95% 03:27 10/13/2024 64 94% 03:27 10/13/2024 178/106 117 65 03:22 10/13/2024 65 99% 03:17 10/13/2024 66 98% 03:12 10/13/2024 168/99 122 76 03:12 10/13/2024 78 96% 03:01 10/13/2024 217/131 162 77 02:58 10/13/2024 71 18 98% 97.6 F 10 2 of 3 Vitals Measured Time BP MAP HR RR O2Sat ETCO2 Temp Pain GCS RTS 02:47 10/13/2024 72 99% 02:47 10/13/2024 191/116 165 72 3 of 3 Normal [facility] LACTATEon 10-13-2024 Lactate [Moles/Vol] 2.0 mmol/L Normal 0.4 - 2.0 [facility] Comment on above: Performed By: #### 2 69319 #### [facility],[address] [place], [place] [phone] LIPASEon 10-13-2024 Lipase [Catalytic activity/Vol] 32.0 U/L Normal 15.0 - 78.0 [facility] Comment on above: Result Comment: *PLE ASE NOTE THAT RANGES FOR LIPASE HAVE CHANGED OF 03/19/23 DUE TO AN ASSAY UPDATE BY THE SIPHON OPERATOR.THE NEW ASSAY RANGE IS 6-250 U/L, WITH A REFERENCE RANGE OF 16-77 U/L. Performed By: #### 2 49349 ####[facility],[address] [place], [place] [address] NT-proBNPon 10-13-2024 Natriuretic peptide B (Bld) [Mass/Vol] 106 pg/mL Normal 0 - 125 [facility] Comment on above: Performed By: #### 2 03975 ####[facility],[address] [place] [address] 07114 TROPONINon 10-13-2024 HS TROPONIN <4.0 Normal 0.0 - 76.2 [facility] Comment on above: Performed By: #### 2 64124 #### [facility],[address] [place] [address] 45872 URINALYSISon 10-13-2024 Amorphous NONE Normal [facility] Comment on above: Performed By: #### 2 80650 #### [facility],[address] [place] [address] 14568 Bacteria NONE Normal [facility] Comment on above: Performed By: #### 2 28765 #### [facility],[address] [place] [address] 90128 Bilirubin Ql (U) Negative Normal NORMAL: NEGATIVE [facility] Comment on above: Performed By: #### 2 38416 #### [facility],[address] [place], [place] [phone] Casts NONE Normal [facility] Comment on above: Performed By: #### 2 79415 #### [facility],[address] [place], [place] [address] Clarity (U) clear Normal NORMAL: CLEAR [facility] Comment on above: Performed By: #### 2 11477 #### [facility],[address] [place] [address] Color (U) yellow Normal NORMAL: YELLOW [facility] Comment on above: Performed By: #### 2 94761 #### [facility],[address] [place] [address] Crystals LM Nom (Urine sed) NONE Normal [facility] Comment on above: Performed By: #### 2 63981 #### [facility],[address] [place], [place] [address] Epi Cells NONE Normal [facility] Comment on above: Performed By: #### 2 70310 #### [facility],[address] [place] [address] 12237 Glucose Ql (U) NORM Normal NORMAL: NORMAL [facility] Comment on above: Performed By: #### 2 26434 #### [facility],[address] [place] [address] 33992 Hemoglobin Ql (U) 10 Abnormal NORMAL: NEGATIVE [facility] Comment on above: Performed By: #### 2 72520 #### [facility],[address] [place] [address] 30586 Ketone 5 Abnormal NORMAL: NEGATIVE [facility] Comment on above: Performed By: #### 2 25861 #### [facility],[address] [place] [address] Leukocytes Negative Normal NORMAL: NEGATIVE [facility] Comment on above: Performed By: #### 2 32787 #### [facility],[address] [place] [address] Mucous NONE Normal [facility] Comment on above: Performed By: #### 2 15893 #### [facility],[address] [place] [address] Nitrite Ql (U) Negative Normal NORMAL: NEGATIVE [facility] Comment on above: Performed By: #### 2 03516 #### [facility],[address] [place] [address] pH (U) 7 [pH] Normal NORMAL: 5.0-8.0 [facility] Comment on above: Performed By: #### 2 71623 #### [facility],[address] [place] [address] Protein Ql (U) Negative Normal NORMAL: NEGATIVE [facility] Comment on above: Performed By: #### 2 99936 #### [facility],[address] [place], [place] [phone] Rbc 0-5 Normal 0-3/hpf [facility] Comment on above: Performed By: #### 2 44718 #### [facility],[address] [place] [address] Sp Lima 1.010 Normal NORMAL: 1.010-1.030 [facility] Comment on above: Performed By: #### 2 06600 #### [facility],[address] [place] [address] Specimen Type R Normal [facility] Comment on above: Performed By: #### 2 94001 #### [facility],[address] [place] [address] Urinalysis dipstick W Reflex Microscopic panel (U) SEE BELOW Normal [facility] Comment on above: Result Comment: MICR OSCOPIC Performed By: #### 2 40240 #### [place] [address],[place] [address] Urobilinog NORM Normal NORMAL: NORMAL [facility] Comment on above: Performed By: #### 2 05815 #### [facility],[address] [place] [address] 26045 Wbc NONE Normal 0-5/hpf [facility] Comment on above: Performed By: #### 2 99449 #### [facility],[address] [place] [address] 03841 Yeast NONE Normal [facility] Comment on above: Performed By: #### 2 45993 #### [facility],[address] [place], [place] [phone] HGB A1C [CCL]on 09-03-2019 HbA1c (Bld) [Mass fraction] 111 mg/dL Normal [facility] Comment on above: Result Comment: eAG: (Estimated average glucose) is a calculated value from HgbA1c and is hardware supplies sales representative of the average blood glucose level in the last 2-3 month period. [facility] [address] [place] [address] Benny Mckeon III, M.D. [id number] Performed By: #### 2 44579 #### [facility],[address] [place], [place] [address] HbA1c (Bld) [Mass fraction] 5.5 % Normal 4.3-5.6 [facility] Comment on above: Result Comment: Amer ican Diabetes Association guidelines indicate that patients with HgbA1c in the range 5.7-6.4% are at increased risk for development of diabetes, and intervention by lifestyle modification may be beneficial. HgbA1c greater or equal to 6.5% is considered diagnostic of diabetes. Performed By: #### 2 29108 #### [facility],[address] [place] [address] 36225 Hemoglobin A1con 09-03-2019 HbA1c (Bld) [Mass fraction] 5.5 % Normal 4.3-5.6 [facility] Comment on above: Performed By: #### H BA1C #### [facility] Routine Lab [address] [place], [place] [address] HbA1c (Bld) [Mass fraction] 111 mg/dL Normal [facility] Comment on above: Performed By: #### H BA1C #### [facility]ine [facility] [address] [place], [place] [address] CMP with eGFRon 09-01-2019 Age - Reported 53 years Normal [facility] Comment on above: Performed By: #### 2 51486 #### [facility],[address] [place] [address] 42357 Albumin [Mass/Vol] 4.5 g/dL Normal 3.4 - 4.8 [facility] Comment on above: Performed By: #### 2 56841 #### [facility],[address] [place] [address] 31591 Albumin/Globulin [Mass ratio] 1.7 {ratio} High 0.9 - 1.6 [facility] Comment on above: Performed By: #### 2 74885 #### [facility],[address] [place] [address] 04695 ALK PHOS 71 U/L Normal 38 - 126 [facility] Comment on above: Performed By: #### 2 83325 #### [facility],[address] [place] [address] 32351 ALT/SGPT 18 U/L Normal 10 - 40 [facility] Comment on above: Performed By: #### 2 87484 #### [facility],[address] [place] [address] 33100 Anion gap [Moles/Vol] 10 mmol/L Normal 10 - 20 [facility] Comment on above: Performed By: #### 2 13596 #### [facility],[address] [place] [address] 77796 AST/SGOT 19 U/L Normal 13 - 39 [facility] Comment on above: Performed By: #### 2 69802 #### [facility],[address] [place] [address] 10581 B/C RATIO 21 ratio Normal 0 - 30 [facility] Comment on above: Performed By: #### 2 50507 #### [facility],[address] [place] [address] 61652 Bilirubin [Mass/Vol] 0.3 mg/dL Normal 0.0 - 1.5 [facility] Comment on above: Performed By: #### 2 50258 #### [facility],[address] [place] [address] 61492 Calcium [Mass/Vol] 9.5 mg/dL Normal 8.6 - 10.2 [facility] Comment on above: Performed By: #### 2 57734 #### [facility],[address] [place] [address] 26467 Chloride [Moles/Vol] 104 mmol/L Normal 98 - 107 [facility] Comment on above: Performed By: #### 2 04729 #### [facility],[address] [place] [address] 38794 CO2 [Moles/Vol] 29.0 mmol/L Normal 21.0 - 31.0 [facility] Comment on above: Performed By: #### 2 55467 #### [facility],[address] [place] [address] 87335 Creatinine [Mass/Vol] 1.0 mg/dL Normal 0.7 - 1.3 [facility] Comment on above: Performed By: #### 2 07994 #### [facility],[address] [place] [address] 06606 GFR/1.73 sq M predicted among non-blacks MDRD (S/P/Bld) [Vol rate/Area] mL/min/{1.73_m2} Normal 60 - 999 [facility] Comment on above: Performed By: #### 2 25714 #### [place] [phone] Result Comment: ACCO RDING TO THE NATIONAL KIDNEY DISEASE EDUCATION PROGRAM(NKDE), A NORMAL eGFR IS A VALUE GREATER THAN OR EQUAL TO 60 ML/MIN/1.73 SQ METERS. CHRONIC KIDNEY DISEASE: <60mL/MIN/1.73 SQ METERS KIDNEY FAILURE: <15mL/MIN/1.73 SQ METERS THIS TEST SHOULD ONLY BE USED FOR PATIENTS 18 YEARS OF AGE AND OLDER. GFR/1.73 sq M predicted among non-blacks MDRD (S/P/Bld) [Vol rate/Area] Normal [facility] Comment on above: Result Comment: COMP REHENSIVE METABOLIC PANEL Performed By: #### 2 36188 #### [address] [address] Globulin (S) [Mass/Vol] 2.6 g/dL Normal 1.5 - 3.8 [facility] Comment on above: Performed By: #### 2 16090 #### [address] [address] Glucose [Mass/Vol] 99 mg/dL Normal 74 - 106 [facility] Comment on above: Performed By: #### 2 66994 #### [address] [address] Potassium [Moles/Vol] 4.3 mmol/L Normal 3.5 - 5.1 [facility] Comment on above: Performed By: #### 2 15810 #### [address] [address] Protein [Mass/Vol] 7.1 g/dL Normal 6.4 - 8.3 [facility] Comment on above: Performed By: #### 2 79877 #### [address] [address] Sodium [Moles/Vol] 139 mmol/L Normal 136 - 145 [facility] Comment on above: Performed By: #### 2 94949 #### [facility],[address] [place] [address] 45262 Urea nitrogen [Mass/Vol] 21 mg/dL High 6 - 20 [facility] Comment on above: Performed By: #### 2 93801 #### [facility],[address] [place] [address] 31416 Encounters Encounter Date Encounter Type Care Provider Facility Start: 11-03-2024 End: 11-03-2024 ambulatory TRUPTI MATCHING MACHINE OPERATOR [facility] [place] [facility] Start: 11-02-2024 End: 11-02-2024 ambulatory TRUPTI MATCHING MACHINE OPERATOR [facility] [place] [facility] Start: 10-13-2024 End: 10-13-2024 Emergency department patient visit BENJA BADILLO [facility] Start: 10-30-2020 ambulatory Carol Malys Facility:[facility] Start: 09-01-2019 End: 09-01-2019 Patient encounter procedure BERYL SIM [facility] Procedures Date Procedure Procedure Detail Performing Clinician Start: 10-13-2024 Urinalysis BENJA Hayes Comment on above: Result Comment: URIN ALYSIS Performed By: #### 2 35072 #### [facility],[address] [place] [address] 69476 Payers Date Payer Category Payer Self-pay 2020 Unknown [id number] 1965 Unknown [id number] .. [id number] 1965 Unknown [id number] 1965 Unknown [id number] .[id number] [id number] Medicare [id number] Unknown [id number] .16.8 [id number] Summary Purpose Family History No Family History Records FoundNo Family History Records FoundNo Family History Records FoundNo Family History Records Found Advance Directives No Advanced Directives Records FoundNo Advanced Directives Records FoundNo Advanced Directives Records FoundNo Advanced Directives Records Found Additional Source Comments (unrecognized sect ion and content) No Status Records FoundNo Status Records FoundNo Status Records FoundNo Status Records Found INFORMATION SOURCE (unrecogn ized section and content) DATE CREATED AUTHOR 09/03/2019 [facility] DATE CREATED AUTHOR AUTHOR'S ORGANIZ ATION 09/04/2019 [facility] DATE CREATED AUTHOR AUTHOR'S ORGANIZ ATION 04/20/2022 [facility] DATE CREATED AUTHOR AUTHOR'S ORGANIZ ATION 11/04/2024 [facility] FOR RECORDS PERTAINING TO PATIENTS WHO ARE OR HAVE BEEN ENROLLED IN A CHEMICAL DEPENDENCY/SUBSTANCEABUSE PROGRAM, SOME INFORMATION MAY BE OMITTED. This clinical summary was aggregated from multiple sources. Caution should be exercised in using it in the provision of clinical care. This summary normalizes information from multiple sources, and as a consequence, information in this document may materially change the coding, format and clinical context of patient data. In addition, data may be omitted in some cases. CLINICAL DECISIONS SHOULD BE BASED ON THE PRIMARY CLINICAL RECORDS. [facility] [employer] provides no warranty or guarantee of the accuracy or completeness of information in this document.
[2024-11-05 16:34] VITALS: BMI 29.9
[2024-11-05 16:48] VITALS: BP 134/78; PULSE 97; RESP 16; TEMP 36.8; O2SAT 96
--- NOTE | 2024-11-05 16:56 | PCM.HP.STD ---
HPI - General General Date of Admission: 11/05/24 Date of Service: 11/05/24 Chief Complaint: Abd pain and jaundince HPI Narrative DOTTIE CHILD, is a 58-year-old male with a history of hypertension, GERD, anxiety presented to [facility] with 3 weeks of abdominal pain. 2 weeks ago he had a CT abdomen and pelvis with contrast which showed thickening of the gallbladder but no other acute abnormalities, he had worsening pain over the past week or so and developed jaundice, 4 days ago he had an ultrasound that showed common bile duct of 11 mm, in the ED today his bilirubin was found to be 15 and imaging showed gallbladder sludge and stones. Patient suspected to have choledocholithiasis, given the above he was given antibiotics and [facility] contacted for transfer. Accepting hospitalist discussed with the GI and surgery and accepted the patient, they will be seen in consult. Patient arrived to the floor in stable condition. Evaluated patient at bedside. Patient reports history as above, he said right now his nausea and pain are little bit better after getting antibiotics and medication at the [facility] facility in [place]. When asked for ROS patient said a little bit of everything but the most notably he has been having the intermittent upper abdominal pain that is worse when he eats or drinks so has not been eating or drinking very well and has been having a lot of gas with intermittent bowel movements but notes he has not been eating well so he would not expect you to have any bowel movements. Does note that he has been having what he thinks are fevers at home with sweats and then chills but does not sound as though he has taken his temperature during those times. [facility] Medical History (Updated 11/05/24 @ 17:[address] Kate Stark MD) Anxiety Appendicitis Depression HTN (hypertension) Home Medications ?Medication ?Instructions ?Recorded ?Last Taken ?Type cetirizine 10 mg tablet (Allergy 10 mg PO DAILY allergies 11/05/24 Unknown History Relief (cetirizine)) losartan 50 mg tablet 50 mg PO DAILY blood pressure 11/05/24 Unknown History pantoprazole 40 mg tablet,delayed 40 mg PO BID gerd 11/05/24 Unknown History release sertraline 100 mg tablet 100 mg PO DAILY anxiety 11/05/24 Unknown History Allergy/AdvReac Type Severity Reaction Status Date / Time No Known Allergies Allergy Verified 09/13/20 11:27 Surgical History (Updated 11/05/24 @ 16:42 by Poornima Walker) H/O hernia repair H/O sinus surgery Social History Smoking Status: Former smoker ROS ROS Narrative Asked for ROS, answers as above, for all other questions patient gave a blanket statement a little bit of everything Vital Signs Vital Signs Vital Signs: 11/05/24 16:48 Temperature 98.3 F Temperature Source Oral Pulse Rate 97 Respiratory Rate 16 Blood Pressure 134/78 H Blood Pressure Mean 96 Blood Pressure Source Monitor Blood Pressure Position Semi-Fowlers Blood Pressure Location Right Arm Pulse Ox 96 Oxygen Delivery Method Room Air Weight Weight: 97.5 kg Body Mass Index (BMI) 29.9 Physical Exam Narrative General: Alert, oriented, no apparent distress HEENT: Atraumatic, normocephalic Eyes: Some scleral icterus appreciated, normal conjunctiva, extraocular movements grossly intact Neck: Supple Respiratory: Clear to auscultation bilaterally, normal respiratory effort Cardiovascular: Regular rate and rhythm GI: Soft, somewhat protuberant, did not have any significant tenderness on my evaluation with no rebound, guarding, or rigidity Extremities: No edema Musculoskeletal: Moving all extremities Neuro: No overt focal neurological deficits Skin: No rashes appreciated the patient does appear visually jaundice Psych: Cooperative Assessment & Plan Assessment/Plan (1) Jaundice: (2) Choledocholithiasis: PLAN: Plan # Jaundice, common bile duct dilation, gallbladder sludge and stones -Bilirubin of 15 in outlying facility with elevated liver enzymes -overview of chart reveals AST 226, alpha Umberto 599 total bili of 15.4 -Copies of reports on physical chart -right upper quadrant ultrasound from 11/03 with distended gallbladder filled with sludges small calculi with thickening of wall and common bile duct dilated 10.1 mm but duct is not visualized in its entirety though no introductory calculus demonstrated on what was visible -Suspected choledocholithiasis but given history as above and significance of elevation as well as patient reported fevers patient was already given antibiotics, will continue empiric antibiotics at this time -GI consult -Surgery consult -IV fluids -Supportive care -N.p.o. at midnight #Hypertension - Continue home hypertensives #anxiety -Continue home medications #GERD -Continue PPI #DVT ppx: IVYs Kate Stark MD Time spent in the patient's overall evaluation, decision-making process, review of diagnostic data, adjustment of management, discussion with other providers, nursing and ancillary staff involved in patient's care documentation, 60 Minutes Charges/Coding Visit Charges Inpatient E&M: 06738 Init Hosp L2
--- OUTSIDE RECORDS SUMMARY | 2024-11-05 17:47 | XMS RPT_ITS | CCD ---
Author Organization [facility] Care Team Providers Care Bagman/Woman Name Role Phone BERYL HARRISON DO Admitting Unavailable BERYL HARRISON DO Attending Unavailable BERYL HARRISON DO Primary Care Unavailable Carol Zuniga Attending [...] TRUPTI PAINTER CNP Primary Care Unavailable TRUPTI PAINTER CNP Consulting Unavailable TRUPTI PAINTER CNP Attending Unavailable TRUPTI PAINTER CNP Admitting Unavailable PROVIDER, UNKNOWN Consulting Unavailable PROVIDER, UNKNOWN Consulting Unavailable Allergies Allergy Classification Reported Allergen(s) Allergy Type Date of Onset Reaction(s) Facility (1 source) Adhesive agent; Translations: [ADHESIVE] Propensity to adverse reactions (disorder) [facility] Repository Problems Problem Classification Problem Date Documented [...] 10-13-2024 Chronic Other aftercare (1 source) Other fdc (current) drug therapy; Translations: [Other fdc (current) drug therapy] Onset: 10-13-2024 Episodic Other gastrointestinal disorders (1 source) Irritable bowel syndrome without diarrhea; Translations: [Irritable bowel syndrome, unspecified] Onset: 10-13-2024 Chronic Results Test Name Value Interpretation Reference Range Facility US RUQ (GB/PANCREAS)on 11-03 US RUQ (GB/PANCREAS) [place] [address] Patient: DOTTIE CHILD Phone#: : 1965 Age: 58 Gender: M Pt. Type: Out Account: [id number] Location: [facility] Ordering: TRUPTI PAINTER Exam Date: 11/03/2024/6:58 Family Phys: Charge Code: 316777 Physician: Holt Order #: [id number] Dose#: PROCEDURE: RUQ (GB) ULTRASOUND COMPARISON: None. [...] MARINA MD ON 11/03/2024 AT 8:49 Normal [facility] AMYLASEon 11-02-2024 Amylase [Catalytic activity/Vol] 27 U/L Normal 25 - 115 [facility] Comment on above: Performed By: #### 2 50300 #### [place] [address] LIPASEon 11-02-2024 Lipase [Catalytic activity/Vol] 20.0 U/L Normal 15.0 - 78.0 [facility] Comment on above: Result Comment: *PLE ASE NOTE THAT RANGES FOR LIPASE HAVE CHANGED OF 03/19/23 DUE TO AN ASSAY UPDATE BY THE SHIP SCALER.THE NEW ASSAY RANGE IS 6-250 U/L, WITH A REFERENCE RANGE OF 16-77 U/L. Performed By: #### 2 65523 #### [place] [address] C-REACTIVE PROTEINon 025 CRP 0.87 mg/dl Normal 0.00 - 0.90 [facility] Comment on above: Performed By: #### 2 48869 #### [place] [address] CBC + DIFFon 10-13-2024 Baso # 0.03 x10EE3/UL Normal 0.00 - 0.10 [facility] Comment on above: Performed By: #### 2 08443 #### [place] [id number] Basophils/100 WBC (Bld) 0.3 % Normal 0.0 - 2.0 [facility] Comment on above: Performed By: #### 2 87095 #### [place] [address] CBC + DIFF Normal [facility] Comment on above: Result Comment: CBC- COMPLETE BLOOD COUNT Performed By: #### 2 21309 #### [address],[place] [address] EO # 0.15 x10EE3/UL Normal 0.00 - 0.50 [facility] Comment on above: Performed By: #### 2 13629 #### [facility],[address] [place] [address] 68343 Eosinophils/100 WBC (Bld) 1.4 % Normal 0.0 - 7.0 [facility] Comment on above: Performed By: #### 2 54628 #### [facility],[address] [place] [address] Erythrocyte distribution width (RBC) [Ratio] 13.4 % Normal 12.0 - 15.6 [facility] Comment on above: Performed By: #### 2 94803 #### [facility],[address] [place] [address] Hematocrit (Bld) [Volume fraction] 47.7 % Normal 40.0 - 52.0 [facility] Comment on above: Performed By: #### 2 25094 #### [facility],[address] [place] [address] Hemoglobin (Bld) [Mass/Vol] 16.6 g/dL Normal 13.0 - 17.5 [facility] Comment on above: Performed By: #### 2 42642 #### [facility],[address] [place] [address] Lymph # 1.42 x10EE3/UL Normal 0.80 - 2.80 [facility] Comment on above: Performed By: #### 2 77178 #### [address] [address] Lymphocytes/100 WBC (Bld) 13.8 % Low 20.0 - 45.0 [facility] Comment on above: Performed By: #### 2 52961 #### [facility],[address] [place] [address] 66691 MANUAL DIFF N/A Normal [facility] Comment on above: Performed By: #### 2 13633 #### [facility],[address] [place] [address] MCH (RBC) [Entitic mass] 30 pg Normal 27 - 33 [facility] Comment on above: Performed By: #### 2 96298 #### [facility],[address] [place] [address] MCHC 35 X10 3 Normal 32 - 36 [facility] Comment on above: Performed By: #### 2 29091 #### [facility],[address] [place], [place] [id number] MCV (RBC) [Entitic vol] 87 fL Normal 81 - 98 [facility] Comment on above: Performed By: #### 2 06926 #### [facility],[address] [place] [address] [place] # 0.58 x10EE3/UL Normal 0.20 - 1.00 [facility] Comment on above: Performed By: #### 2 68284 #### [facility],[address] [place] [address] MONOS % 5.6 % Normal 0.0 - 10.0 [facility] Comment on above: Performed By: #### 2 91520 #### [facility],[address] [place], [place] [id number] Morphology Cole (Bld) [Interp] N/A Normal [facility] Comment on above: Performed By: #### 2 13348 #### [facility],[address] [place] [address] Neut # 8.13 x10EE3/UL High 1.50 - 7.10 [facility] Comment on above: Performed By: #### 2 95911 #### [facility],[address] [place], [place] [id number] Neutrophils/100 WBC (Bld) 78.8 % High 46.0 - 76.0 [facility] Comment on above: Performed By: #### 2 49071 #### [facility],[address] [place] [address] 88072 PLATELET 323 x10EE3/UL Normal 150 - 450 [facility] Comment on above: Performed By: #### 2 64220 #### [facility],[address] [place] [address] 71739 Platelet mean volume (Bld) [Entitic vol] 7.2 fL Normal 6.4 - 10.5 [facility] Comment on above: Result Comment: AUTO MATED DIFFERENTIAL Performed By: #### 2 43458 #### [facility],[address] [place] [address] 96678 RBC 5.48 x 10EE6/UL Normal 4.50 - 6.00 [facility] Comment on above: Performed By: #### 2 79308 #### [facility],[address] [place] [address] 60609 WBC 10.3 x 10EE3/UL Normal 4.5 - 10.8 [facility] Comment on above: Performed By: #### 2 32177 #### [facility],[address] [place] [address] 30616 CMP with eGFRon 10-13-2024 AGE 58 years Normal [facility] Comment on above: Performed By: #### 2 24282 #### [facility],[address] [place] [address] 98863 Albumin [Mass/Vol] 4.0 g/dL Normal 3.4 - 5.0 [facility] Comment on above: Performed By: #### 2 45480 #### [facility],[address] [place] [address] 10516 Albumin/Globulin [Mass ratio] 1.1 {ratio} Normal 0.9 - 1.6 [facility] Comment on above: Performed By: #### 2 95944 #### [facility],[address] [place] [address] 11838 ALK PHOS 94 U/L Normal 46 - 116 [facility] Comment on above: Performed By: #### 2 58785 #### [facility],[address] [place] [address] 88733 ALT [Catalytic activity/Vol] 28 U/L Normal 16 - 63 [facility] Comment on above: Performed By: #### 2 95594 #### [facility],[address] [place] [address] 74907 Anion gap [Moles/Vol] 14 mmol/L Normal 10 - 20 [facility] Comment on above: Performed By: #### 2 18517 #### [facility],[address] [place] [address] 84565 AST [Catalytic activity/Vol] 16 U/L Normal 15 - 37 [facility] Comment on above: Performed By: #### 2 37976 #### [facility],[address] [place] [address] 04467 B/C RATIO 13 ratio Normal 0 - 30 [facility] Comment on above: Performed By: #### 2 48612 #### [facility],[address] [place] [address] 40029 Bilirubin [Mass/Vol] 0.6 mg/dL Normal 0.2 - 1.0 [facility] Comment on above: Performed By: #### 2 17585 #### [facility],[address] [place] [address] 0[address] Calcium [Mass/Vol] 9.1 mg/dL Normal 8.5 - 10.1 [facility] Comment on above: Performed By: #### 2 97420 #### [facility],[address] [place] [address] 04564 Chloride [Moles/Vol] 101 mmol/L Normal 98 - 107 [facility] Comment on above: Performed By: #### 2 21495 #### [facility],[address] [place] [address] 92697 CMP with eGFR Normal [facility] Comment on above: Result Comment: COMP REHENSIVE METABOLIC PANEL Performed By: #### 2 24676 #### [facility],[address] [place] [address] 31393 CO2 [Moles/Vol] 24.6 mmol/L Normal 21.0 - 32.0 [facility] Comment on above: Performed By: #### 2 94148 #### [facility],[address] [place] [address] 40310 Creatinine [Mass/Vol] 1.07 mg/dL Normal 0.70 - 1.30 [facility] Comment on above: Performed By: #### 2 00313 #### [facility],[address] [place] [address] 47256 GFR/1.73 sq M.predicted among non-blacks MDRD (S/P/Bld) [Vol rate/Area] mL/min/{1.73_m2} Normal 60 - 999 [facility] Comment on above: Performed By: #### 2 84978 #### [facility],[address] [place] [address] 66089 Result Comment: ACCO RDING TO THE NATIONAL KIDNEY DISEASE EDUCATION PROGRAM(NKDE), A NORMAL eGFR IS A VALUE GREATER THAN OR EQUAL TO 60 ML/MIN/1.73 SQ METERS. CHRONIC KIDNEY DISEASE: <60mL/MIN/1.73 SQ METERS KIDNEY FAILURE: <15mL/MIN/1.73 SQ METERS THIS TEST SHOULD ONLY BE USED FOR PATIENTS 18 YEARS OF AGE AND OLDER. Globulin (S) [Mass/Vol] 3.7 g/dL Normal 1.5 - 3.8 [facility] Comment on above: Performed By: #### 2 16670 #### [facility],[address] [place] [address] 45858 Glucose [Mass/Vol] 165 mg/dL High 74 - 106 [facility] Comment on above: Performed By: #### 2 20004 #### [facility],[address] [place] [address] 89311 Potassium [Moles/Vol] 3.7 mmol/L Normal 3.5 - 5.1 [facility] Comment on above: Performed By: #### 2 52781 #### [address] [address] Protein [Mass/Vol] 7.7 g/dL Normal 6.4 - 8.2 [facility] Comment on above: Performed By: #### 2 43903 #### [address] [address] Sodium [Moles/Vol] 136 mmol/L Normal 136 - 145 [facility] Comment on above: Performed By: #### 2 71979 #### [address] [address] Urea nitrogen [Mass/Vol] 14 mg/dL Normal 7 - 18 [facility] Comment on above: Performed By: #### 2 00898 #### [address] [address] ED MED ADMINISTRATION DETAIL on 10-13-2024 ED MED ADMINISTRATION DETAIL [employer] Machine Tender Medication Administration Record [place] [id number] 10/13/2024 Patient: DOTTIE CHILD Sex: Male : [...] 03:13 Kulwinder Kelly R.N. 1 of 2 [employer] Tender Medication Ordered Medication Administration Date/Time Ondansetron IVP [...] Kulwinder Kelly R.N. 2 of 2 Normal [facility] ED NURSES CLINICAL NOTEon ED NURSES CLINICAL NOTE Nurse Narrative Nurse Clinical Narrative [place] [address] [facility] [place] [address] [id number] 10/13/2024 02:43:00 Patient: DOTTIE CHILD Sex: Male [...] had nausea, vomiting and abdominal pain. Treatment PAYROLL REPRESENTATIVE: None. SEPSIS SCREEN: NEGATIVE. SIRS criteria negative. [...] Kulwinder Kelly R.N. 02:45 10/13/24. Preferred Pharmacy: ([facility]). -- 02:58 10/13/24 EDT Kulwinder Kelly R.N. [...] EDT Leonor (more content not included)... Normal [facility] ED ORDER SHEET (CPOE ONLY)on 10-13-2024 ED ORDER SHEET (CPOE ONLY) Order Sheet Order Sheet [facility] [address] [place] [address] [id number] 10/13/2024 Patient: DOTTIE CHILD Sex: Male : [...] 10/13/2024 Amy Bowden Charles Wilbur, R.N. RJackiNJacki BNP Stat Stat 02:50 10/13/2024 02:58 10/13/2024 [...] minutes Amy Bowden Charles Wilbur, R.N. R.N. Rotating Equipment Specialist 02:50 10/13/2024 02:58 10/13/2024 03:17 10/13/2024 Amy Bowden Charles Wilbur, R.N. R.NJacki 3 of 4 Order Sheet Oxygen titrate to 92% 02:50 10/13/2024 02:59 10/13/2024 03:17 10/13/2024 Amy Bowden Charles Wilbur, R.N. R.N. [Electronically signed by Benja Phillips D.O. (10/13/2024 07:02 EDT)] 4 of 4 Normal [facility] ED PHYSICIAN CLINICAL REPORT on 10-13-2024 ED PHYSICIAN CLINICAL REPORT Narrative Physician Clinical Narrative [facility] [address] [place] [address] [id number] 10/13/2024 02:43:00 Patient: DOTTIE CHILD Sex: Male [...] MPV 7.2 (more content not included)... Normal [facility] ED [facility] 10-13-[address] [place] [address] [id number] 10/13/2024 Patient: DOTTIE CHILD Sex: Male : 1965 Age: 58y Item Facility Professional Category Description Code Code Quantity Fee Total Drugs Normal [place]ine 302639 1 $0.00 $0.00 1000cc (046278) Nurse/E/M EMERGENCY 616908 1 $0.00 $0.00 DEPARTMENT VISIT HIGH/URGENT SEVERITY (53793-02) Nurse/IV/IM/Infusions Hydration 669839 1 $0.00 $0.00 additional hour (74533) Nurse/IV/IM/Infusions IVP additional 353931 2 $0.00 $0.00 push (62847) Nurse/IV/IM/Infusions IVP initial 062197 1 $0.00 $0.00 (06614) Grand Total $0.00 Providers Benja Phillips D.O. 1 of 2 Superbil Chief Complaint ABDOMINAL PAIN. Principal Diagnosis Acute left upper quadrant abdominal pain. Acute irritable bowel syndrome with abdominal pain. No diarrhea. ICD-10 Codes R10.12: Left upper quadrant pain K58.9: Irritable bowel syndrome, unspecified 2 of 2 Normal [facility] ED VISIT SUMMARYon ED VISIT SUMMARY Visit Overview Visit Overview [address] [address] [id number] 10/13/2024 Patient: DOTTIE CHILD Sex: Male : [...] QUADRANT ABDOMINAL PAIN 3 of 3 Normal [facility] ED VITALS FLOW SHEETon 10-13 ED VITALS FLOW SHEET Vitals Vital Sign Flow Sheet [address] [place] [address] [id number] 10/13/2024 Patient: DOTTIE CHILD Sex: Male : [...] 191/116 165 72 3 of 3 Normal [facility] LACTATEon 10-13-2024 Lactate [Moles/Vol] 2.0 mmol/L Normal 0.4 - 2.0 [facility] Comment on above: Performed By: #### 2 58504 #### [facility],[address] [place], [place] [id number] LIPASEon 10-13-2024 Lipase [Catalytic activity/Vol] 32.0 U/L Normal 15.0 - 78.0 [facility] Comment on above: Result Comment: *PLE ASE NOTE THAT RANGES FOR LIPASE HAVE CHANGED OF 03/19/23 DUE TO AN ASSAY UPDATE BY THE SHIP SCALER.THE NEW ASSAY RANGE IS 6-250 U/L, WITH A REFERENCE RANGE OF 16-77 U/L. Performed By: #### 2 60372 ####[facility],[address] [place], [place] [id number] NT-proBNPon 10-13-2024 Natriuretic peptide B (Bld) [Mass/Vol] 106 pg/mL Normal 0 - 125 [facility] Comment on above: Performed By: #### 2 23234 ####[facility],[address] [place] [address] TROPONINon 10-13-2024 HS TROPONIN <4.0 Normal 0.0 - 76.2 [facility] Comment on above: Performed By: #### 2 85227 #### [facility],[address] [place] [address] 67941 URINALYSISon 10-13-2024 Amorphous NONE Normal [facility] Comment on above: Performed By: #### 2 94162 #### [facility],[address] [place] [address] 13005 Bacteria NONE Normal [facility] Comment on above: Performed By: #### 2 04842 #### [facility],[address] [place] [address] 91613 Bilirubin Ql (U) Negative Normal NORMAL: NEGATIVE [facility] Comment on above: Performed By: #### 2 95046 #### [facility],[address] [place], [place] [id number] Casts NONE Normal [facility] Comment on above: Performed By: #### 2 23912 #### [facility],[address] [place], [place] [id number] Clarity (U) clear Normal NORMAL: CLEAR [facility] Comment on above: Performed By: #### 2 89223 #### [facility],[address] [place] [address] Color (U) yellow Normal NORMAL: YELLOW [facility] Comment on above: Performed By: #### 2 28149 #### [facility],[address] [place] [address] Crystals LM Nom (Urine sed) NONE Normal [facility] Comment on above: Performed By: #### 2 20134 #### [facility],[address] [place], [place] [id number] Epi Cells NONE Normal [facility] Comment on above: Performed By: #### 2 27843 #### [facility],[address] [place] [address] 35913 Glucose Ql (U) NORM Normal NORMAL: NORMAL [facility] Comment on above: Performed By: #### 2 14285 #### [facility],[address] [place] [address] 29470 Hemoglobin Ql (U) 10 Abnormal NORMAL: NEGATIVE [facility] Comment on above: Performed By: #### 2 60251 #### [facility],[address] [place] [address] 48400 Ketone 5 Abnormal NORMAL: NEGATIVE [facility] Comment on above: Performed By: #### 2 99795 #### [facility],[address] [place] [address] Leukocytes Negative Normal NORMAL: NEGATIVE [facility] Comment on above: Performed By: #### 2 31162 #### [facility],[address] [place] [address] Mucous NONE Normal [facility] Comment on above: Performed By: #### 2 17300 #### [facility],[address] [place] [address] Nitrite Ql (U) Negative Normal NORMAL: NEGATIVE [facility] Comment on above: Performed By: #### 2 54138 #### [facility],[address] [place] [address] pH (U) 7 [pH] Normal NORMAL: 5.0-8.0 [facility] Comment on above: Performed By: #### 2 73459 #### [facility],[address] [place] [address] Protein Ql (U) Negative Normal NORMAL: NEGATIVE [facility] Comment on above: Performed By: #### 2 96587 #### [facility],[address] [place], [place] [id number] Rbc 0-5 Normal 0-3/hpf [facility] Comment on above: Performed By: #### 2 76103 #### [facility],[address] [place] [address] Sp [place] 1.010 Normal NORMAL: 1.010-1.030 [facility] Comment on above: Performed By: #### 2 62952 #### [facility],[address] [place] [address] Specimen Type R Normal [facility] Comment on above: Performed By: #### 2 45281 #### [facility],[address] [place] [address] Urinalysis dipstick W Reflex Microscopic panel (U) SEE BELOW Normal [facility] Comment on above: Result Comment: MICR OSCOPIC Performed By: #### 2 04928 #### [place] [address],[place] [address] Urobilinog NORM Normal NORMAL: NORMAL [facility] Comment on above: Performed By: #### 2 96207 #### [facility],[address] [place] [address] Wbc NONE Normal 0-5/hpf [facility] Comment on above: Performed By: #### 2 03039 #### [facility],[address] [place] [address] 85161 Yeast NONE Normal [facility] Comment on above: Performed By: #### 2 26984 #### [facility],[address] [place], [place] [id number] HGB A1C [CCL]on 09-03-2019 HbA1c (Bld) [Mass fraction] 111 mg/dL Normal [facility] Comment on above: Result Comment: eAG: (Estimated average glucose) is a calculated value from HgbA1c and is sales representative advertising of the average blood glucose level in the last 2-3 month period. [facility] [address] [place] [address] Benny Mckeon III, M.D. [phone] Performed By: #### 2 32215 #### [facility],[address] [place], [place] [id number] HbA1c (Bld) [Mass fraction] 5.5 % Normal 4.3-5.6 [facility] Comment on above: Result Comment: Amer [place] Diabetes Association guidelines indicate that patients with HgbA1c in the range 5.7-6.4% are at increased risk for development of diabetes, and intervention by lifestyle modification may be beneficial. HgbA1c greater or equal to 6.5% is considered diagnostic of diabetes. Performed By: #### 2 48612 #### [facility],[address] [place] [address] 38927 Hemoglobin A1con 09-03-2019 HbA1c (Bld) [Mass fraction] 5.5 % Normal 4.3-5.6 [facility] Comment on above: Performed By: #### H BA1C #### [facility] Routine Lab [address] [place], [place] [address] HbA1c (Bld) [Mass fraction] 111 mg/dL Normal [facility] Comment on above: Performed By: #### H BA1C #### [facility] [address] [place], [place] [address] CMP with eGFRon 09-01-2019 Age - Reported 53 years Normal [facility] Comment on above: Performed By: #### 2 88944 #### [facility],[address] [place] [address] 70808 Albumin [Mass/Vol] 4.5 g/dL Normal 3.4 - 4.8 [facility] Comment on above: Performed By: #### 2 83058 #### [facility],[address] [place] [address] 66225 Albumin/Globulin [Mass ratio] 1.7 {ratio} High 0.9 - 1.6 [facility] Comment on above: Performed By: #### 2 33066 #### [facility],[address] [place] [address] 78060 ALK PHOS 71 U/L Normal 38 - 126 [facility] Comment on above: Performed By: #### 2 04073 #### [facility],[address] [place] [address] 97898 ALT/SGPT 18 U/L Normal 10 - 40 [facility] Comment on above: Performed By: #### 2 93817 #### [facility],[address] [place] [address] 11211 Anion gap [Moles/Vol] 10 mmol/L Normal 10 - 20 [facility] Comment on above: Performed By: #### 2 20250 #### [facility],[address] [place] [address] 13467 AST/SGOT 19 U/L Normal 13 - 39 [facility] Comment on above: Performed By: #### 2 56372 #### [facility],[address] [place] [address] 23014 B/C RATIO 21 ratio Normal 0 - 30 [facility] Comment on above: Performed By: #### 2 30583 #### [facility],[address] [place] [address] 40543 Bilirubin [Mass/Vol] 0.3 mg/dL Normal 0.0 - 1.5 [facility] Comment on above: Performed By: #### 2 03555 #### [facility] [facility],[address] [place] [id number] Calcium [Mass/Vol] 9.5 mg/dL Normal 8.6 - 10.2 [facility] Comment on above: Performed By: #### 2 [id number] #### [facility],[address] [place] [address] Chloride [Moles/Vol] 104 mmol/L Normal 98 - 107 [facility] Comment on above: Performed By: #### 2 [id number] #### [facility],[address] [place] [address] CO2 [Moles/Vol] 29.0 mmol/L Normal 21.0 - 31.0 [facility] Comment on above: Performed By: #### 2 [id number] #### [facility],[address] [place] [address]384 Creatinine [Mass/Vol] 1.0 mg/dL Normal 0.7 - 1.3 [facility] Comment on above: Performed By: #### 2 53717 #### [facility],[address] [place] [address] GFR/1.73 sq M predicted among non-blacks MDRD (S/P/Bld) [Vol rate/Area] mL/min/{1.73_m2} Normal 60 - 999 [facility] Comment on above: Performed By: #### 2 48441 #### [place] [id number] Result Comment: ACCO RDING TO THE NATIONAL KIDNEY DISEASE EDUCATION PROGRAM(NKDE), A NORMAL eGFR IS A VALUE GREATER THAN OR EQUAL TO 60 ML/MIN/1.73 SQ METERS. CHRONIC KIDNEY DISEASE: <60mL/MIN/1.73 SQ METERS KIDNEY FAILURE: <15mL/MIN/1.73 SQ METERS THIS TEST SHOULD ONLY BE USED FOR PATIENTS 18 YEARS OF AGE AND OLDER. GFR/1.73 sq M predicted among non-blacks MDRD (S/P/Bld) [Vol rate/Area] Normal [facility] Comment on above: Result Comment: COMP REHENSIVE METABOLIC PANEL Performed By: #### 2 11171 #### [address] [address] Globulin (S) [Mass/Vol] 2.6 g/dL Normal 1.5 - 3.8 [facility] Comment on above: Performed By: #### 2 [id number] #### [address] [address] Glucose [Mass/Vol] 99 mg/dL Normal 74 - 106 [facility] Comment on above: Performed By: #### 2 87088 #### [address] [address] Potassium [Moles/Vol] 4.3 mmol/L Normal 3.5 - 5.1 [facility] Comment on above: Performed By: #### 2 84400 #### [address] [address] Protein [Mass/Vol] 7.1 g/dL Normal 6.4 - 8.3 [facility] Comment on above: Performed By: #### 2 70507 #### [address] [address] Sodium [Moles/Vol] 139 mmol/L Normal 136 - 145 [facility] Comment on above: Performed By: #### 2 43432 #### [facility],[address] [place] [address] Urea nitrogen [Mass/Vol] 21 mg/dL High 6 - 20 [facility] Comment on above: Performed By: #### 2 02045 #### [facility],[address] [place] [address] Encounters Encounter Date Encounter Type Care Provider Facility Start: 11-03-2024 End: 11-03-2024 ambulatory TRUPTI AMMONIA NITRATE OPERATOR [facility] Start: 11-02-2024 End: 11-02-2024 ambulatory TRUPTI AMMONIA NITRATE OPERATOR [facility] Start: 10-13-2024 End: 10-13-2024 Emergency department patient visit BENJA BADILLO [facility] Start: 10-30-2020 ambulatory Carol Malys Facility:[facility] Start: 09-01-2019 End: 09-01-2019 Patient encounter procedure BERYL SIM [facility] Procedures Date Procedure Procedure Detail Performing Clinician Start: 10-13-2024 Urinalysis BENJA Hayes Comment on above: Result Comment: URIN ALYSIS Performed By: #### 2 [id number] #### [facility],[address] [place] [address] Payers Date Payer Category Payer Self-pay 2020 Unknown [id number] 1965 Unknown [id number] .. [id number] 1965 Unknown [id number] 1965 Unknown [id number] Medicare [id number] Unknown [id number] Summary Purpose Family History No Family History [...] section and content) DATE CREATED AUTHOR 09/03/2019 [facility] DATE CREATED AUTHOR AUTHOR'S ORGANIZ ATION 09/04/2019 [facility] DATE CREATED AUTHOR AUTHOR'S ORGANIZ ATION 04/20/2022 [facility] DATE CREATED AUTHOR AUTHOR'S ORGANIZ ATION 11/04/2024 [facility] FOR RECORDS PERTAINING TO PATIENTS WHO ARE [...] BE BASED ON THE PRIMARY CLINICAL RECORDS. [facility] [employer] provides no warranty or guarantee of the accuracy or completeness of information in this document.
[2024-11-05] MEDS: 0.9% Normal Saline (1000mL) 1,000 ML 100 ML IV (18:12)
[2024-11-05] MEDS: Piperacil/Tazobactam 3.375 GM in 0.9% Normal Saline (50mL MB+) 50 ML IV (22:13)
[2024-11-05 22:20] VITALS: BP 152/97; PULSE 76; RESP 18; TEMP 36.4; O2SAT 97
[2024-11-06] VITALS (13 sets, daily range): BP systolic 101–139; BP diastolic 66–89; PULSE 62–93; RESP 12–18; TEMP 36.4–37.1; O2SAT 93–98
[2024-11-06] MEDS: 0.9% Normal Saline (1000mL) 1,000 ML 100 ML IV (04:24)
[2024-11-06] MEDS: Piperacil/Tazobactam 3.375 GM in 0.9% Normal Saline (50mL MB+) 50 ML IV ×3 (04:59→20:50)
[2024-11-06 05:47] LABS: Hematocrit 38.7 % (40-54); Hemoglobin 12.9 g/dL (13.0-16.5); Immature Granulocytes Count 0.060 X10^3/uL (0.0-0.0); Mean Corp Hgb Conc 33.3 g/dL (32-36); Mean Corpuscular Volume 85.8 fL (80-94); Mean Platelet Vol. 8.9 fl (6.2-12.0); NRBC Flagged by Analyzer 0 % (0-5); Platelet Count 363 K/mm3 (150-450); RBC Distribution Width CV 13.2 % (11.6-14.6); RBC Distribution Width SD 41.1 fl (35.1-43.9); Red Blood Count 4.51 M/mm3 (4.6-6.2); White Blood Count 11.6 K/mm3 (4.4-11.0)
--- NOTE | 2024-11-06 06:00 | EKG12_ITS ---
Test Reason : P Blood Pressure : */* mmHG Vent. Rate : 65 BPM Atrial Rate : 65 BPM P-R Int : 146 ms QRS Dur : 102 ms QT Int : 430 ms P-R-T Axes : 63 -51 14 degrees QTcB Int : 447 ms Normal sinus rhythm Left axis deviation Abnormal ECG No previous ECGs available Confirmed by ADONIS AGUSTIN, KENNETH ([id number]), editor publications CHIQUI MORRIS ([id number]) on 11/07/2024 6:15:10 AM Referred By: TATIANA Confirmed By: KENNETH LAMB MD
[2024-11-06 06:02] LABS: AST(SGOT) 183 U/L (<=37); Alanine Aminotransfer ALT/SGPT 229 U/L (<=46); Albumin, Serum 3.3 g/dL (3.5-5.0); Alkaline Phosphatase 514 U/L (40-129); Anion Gap 14 (5-15); BUN 9 mg/dL (4-19); BUN/Creat Ratio 7.9 RATIO (10-20); Calcium,Total 8.7 mg/dL (7.6-11.0); Carbon Dioxide 21.0 mmol/L (21.0-32.0); Chloride 98 mmol/L (98-108); Estimated Creatinine Clearance 80.26 ml/min (50-250); Globulin 2.9 g/dL (2.2-4.2); Glucose 109 mg/dL (70-99); Potassium 3.7 mmol/L (3.3-5.1)
--- NOTE | 2024-11-06 06:40 | CT_ITS ---
PROCEDURE: ABDOMEN/PELVIS W IV CONT ONLY 11/06/2024 REASON FOR EXAM: OBSTRUCTIVE JAUNDICE TECHNIQUE: ABDOMEN/PELVIS W IV CONT ONLY Coronal and Sagittal reconstruction series were provided. CONTRAST: Isovue 370 VOLUME: 100 mL One or more dose reduction techniques were used (e.g., Automated exposure control, adjustment of the mA and/or kV according to patient size, use of iterative reconstruction technique. RADIATION DOSE SUMMARY: CTDlvol: 17.25 mGy DLP: 1189.17 mGycm COMPARISON: None FINDINGS: Lung bases: The lung bases are clear. There is evidence of coronary artery calcification. Liver: There is evidence of intrahepatic biliary ductal dilatation. There is a 15.9 mm cyst in the central portion of the right lobe of the liver. A 12 mm cyst is also seen along the inferior aspect of the right lobe of the liver. Gallbladder: The gallbladder is distended. The common bile duct is dilated down to the region of the ampulla of Vater. Proximally, it 15 mm distally, it measures 8.3 mm. There is also evidence of dilatation of the proximal portion of the pancreatic duct. A mass in the region of the ampulla of Vater should be ruled out. Spleen: Normal size. Pancreas: Dilatation of the pancreatic duct in the region of the head of the pancreas. Adrenals: Unremarkable Kidneys: Normal renal sizes. No hydronephrosis. Bladder: Unremarkable Mild central prostatic calcifications. Bowel: Colonic diverticulosis without diverticulitis. Appendix: Status post appendectomy. Lymph nodes: Unremarkable. Vasculature: Mild diffuse atherosclerotic calcifications are noted. Peritoneum / Retroperitoneum: Small umbilical hernia containing fat. Bones: Mild degenerative changes of the lumbar spine CT/Abdomen/Pelvis W IV Cont ONLY IMPRESSION: Dilated intrahepatic biliary ducts as well as the common bile duct down to the region of the ampulla of Vater. Dilatation of the pancreatic duct at the level of the head of the pancreas. An obstructive mass/ lesion should be ruled out in the region of the ampulla Vater. ERCP recommended. Headache cyst dilatation of the gallbladder. Reading Location: [id number]
--- NOTE | 2024-11-06 07:25 | CON.PCM.SX_ITS ---
Assessment & Plan Assessment/Plan (1) Jaundice: PLAN: The patient is obstructive jaundice. I believe Dr. Murray is ordering a repeat CT scan to evaluate the bile duct. I will be available to remove the patient's gallbladder after obstruction is been dealt with. Boston Williamson MD Pager: [facility] [address] [place] [address] Outpatient [place], [address] [place] [address] Office: HPI Consult Data Date of Consult: 11/06/24 HPI Narrative HPI Narrative: DOTTIE CHILD, is a 58 M who presents with jaundice. Patient has been having some epigastric pain. This is been going on for several weeks. Patient has CT scan that showed thickening of the gallbladder and an ultrasound showed stones. There is no pancreatic mass or biliary mass identified. The patient's bilirubin is markedly elevated. [facility] Medical History Depression Anxiety HTN (hypertension) Appendicitis Home Medications ?Medication ?Instructions ?Recorded ?Last Taken ?Type cetirizine 10 mg tablet (Allergy 10 mg PO DAILY allerg ies 11/05/24 Unknown History Relief (cetirizine)) losartan 50 mg tablet 50 mg PO DAILY blood pressur e 11/05/24 Unknown History pantoprazole 40 mg tablet,delayed 40 mg PO BID gerd Unknown History release sertraline 100 mg tablet 100 mg PO DAILY anxiety 10/20 10/13 Unknown History Allergy/AdvReac Type Severity Reaction Status Date / Time No Known Allergies Allergy Verified 09/13/20 11:27 Surgical History H/O sinus surgery H/O hernia repair Social History Smoking Status: Former smoker ROS Constitutional Constitutional: Denies anorexia, chills or fatigue Eyes Eyes: Denies blurry vision ENT HEENT: Denies abnormal hearing Cardiovascular Cardiovascular: Denies chest pain Respiratory/Chest Respiratory/Chest: Denies cough or dyspnea Gastrointestinal Gastrointestinal: Reports abdominal pain; Denies melena, nausea or rectal bleeding Genitourinary Genitourinary: Denies change in urinary stream Musculoskeletal Musculoskeletal: Denies abnormal gait Integumentary Integumentary: Reports jaundice Neurologic Neurologic: Denies abnormal gait Physical Exam Const alert and oriented x3 HEENT normocephalic Eyes PERRL Resp normal respiratory effort Cardio Rate: regular rate Rhythm: regular rhythm GI soft to palpation Palpation: tender epigastric Extremity normal to inspection Lab / Micro Data 11/06/24 05:17 11/06/24 05:17 Labs: Laboratory Results - last 24 hr 11/06/24 05:17: WBC 11.6 H, RBC 4.51 L, Hgb 12.9 L, Hct 38.7 L, MCV 85.8, MCH 28.6, MCHC 33.3, RDW Std Deviation 41.1, RDW Coeff of Selene 13.2, Plt Count 363, MPV 8.9, Immature Gran % (Auto) 0.500, Neut % (Auto) 63.4, Lymph % (Auto) 13.1 L , [place] % (Auto) 9.6, Eos % (Auto) 12.4 H, Baso % (Auto) 1.0, Absolute Neuts (auto) 7.3, Absolute Lymphs (auto) 1.52, Nucleated RBC % 0, Sodium 133, Potassium 3.7, Chloride 98, Carbon Dioxide 21.0, Anion Gap 14, BUN 9, Creatinine 1.18, Estim Creat Clear Calc 80.26, Est GFR (MDRD) Non-Af 71, BUN/Creatinine Ratio 7.9 L, Glucose 109 H, Calcium 8.7, Total Bilirubin 14.00 H, AST 183 H, ALT 229 H, Alkaline Phosphatase 514 H, Total Protein 6.3, Albumin 3.3 L, Globulin 2.9, Albumin/Globulin Ratio 1.1
--- NOTE | 2024-11-06 08:30 | RAD_ITS ---
PROCEDURE: ERCP BILIARY/PANCREAS; O.R. FLUORO FOR C-ARM 11/06/2024 REASON FOR EXAM: ABD PAIN TECHNIQUE: ERCP BILIARY/PANCREAS; O.R. FLUORO FOR C-ARM. Fluoroscopy time: 90.7 seconds. Dose: 50.26 mGy. COMPARISON: CT examination 11/06/2024. RAD/O.R. Fluoro for C-Arm IMPRESSION: Intraoperative fluoroscopy was performed for ERCP. Additionally, 13 fluoroscop ic images were obtained. Reading Location: [place] [address]
--- NOTE | 2024-11-06 08:30 | RAD_ITS ---
PROCEDURE: ERCP BILIARY/PANCREAS; O.R. FLUORO FOR C-ARM 11/06/2024 REASON FOR EXAM: ABD PAIN TECHNIQUE: ERCP BILIARY/PANCREAS; O.R. FLUORO FOR C-ARM. Fluoroscopy time: 90.7 seconds. Dose: 50.26 mGy. COMPARISON: CT examination 11/06/2024. RAD/ERCP Biliary/Pancreas IMPRESSION: Intraoperative fluoroscopy was performed for ERCP. Additionally, 13 fluoroscop ic images were obtained. Reading Location: [place] [address]
[2024-11-06] MEDS: 0.9% Saline Lock 10 ML Syringe IV (09:48)
--- NOTE | 2024-11-06 10:34 | CASEMGMT ---
Dx:Jaundice, concern for choledocholithiasis LACE:1 6-Clicks:22 Medical record reviewed and patient evaluated for identification of discharge planning needs. Based on this review, at this time criteria are not present to indicate a need for discharge planning. Will remain available to assist with discharge planning needs as identified or requested.
[2024-11-06] MEDS: Lactated Ringers 1,000 ML 15 ML IV (10:56)
--- NOTE | 2024-11-06 11:13 | PRE.ANES_ITS ---
ASA Classification* ASA Classification ASA Classification: 3 Assessment & Plan Anesthesia* Anesthesia Assessment Anesthesia Assessment: Discussed sedation and/or anesthesia options, risks, benefits, and alternatives with patient/parents/legal guardian/POA. Questions invited. The patient/parents/legal guardian/POA seems to understand and agrees to proceed with anesthesia plan. Reviewed the physical assessment, medical history, allergy history and patient home medications list prior to surgery/procedure/anesthetic and documented any changes. Performed airway and anesthesia risk assessments. Anesthesia Type Anesthesia Type: General History Source History Obtained from:: Patient and Chart Anesthesia Focused Assessment* Temperature: 98.7 F Pulse Rate: 68 Blood Pressure: 128/89 Respiratory Rate: 18 Pulse Ox: 96 Oxygen Delivery Method: Room Air Airway Assessment Mouth opens: >3 cm Mallampati Score: III Teeth Condition: Chipped/Broken (Patient has poor dentition.) and Missing (Multiple missing teeth. Rest of the teeth are currently tight.) Neck Range of motion (ROM): Limited ROM (Somewhat Decreased) Labs Anesthesia Preop lab: CBC WBC 11.6 K/mm3 (4.4-11.0) H 11/06/24 05:17 5 RBC 4.51 M/mm3 (4.6-6.2) L 11/06/24 05:17 11/06/24 Hgb 12.9 g/dL (13.0-16.5) L 11/06/24 05:17 5 Hct 38.7 % (40-54) L 11/06/24 05:11/06/24 Plt Count 363 K/mm3 (150-450) 11/06/24 05:11/06/24 CHEMISTRY Potassium 3.7 mmol/L (3.3-5.1) 11/06/24 05:11/06/24 Sodium 133 mmol/L (133-145) 11/06/24 05:11/06/24 BUN 9 mg/dL (4-19) 11/06/24 05:11/06/24 Creatinine 1.18 mg/dL (0.70-1.20) 11/06/24 05:17 11/06/24 Glucose 109 mg/dL (70-99) H 11/06/24 05:17 11/06/24 COAG Pre-Assessment Diagnosis/Proposed Procedure Planned Operative Procedure(s): Endoscopic retrograde cholangiopancreatography Anesthesia History Anesthesia History - gameplay engineer: Anesthesia History - gameplay engineer Hx Hospitalization Any Problems With Anesthesia No 11/06/24 06:31 Cholinesterase deficiency No 11/06/24 06:31 You/Your Family Experience No 11/06/24 06:31 fever (hyperthermia) with Relationship Recent Exposure to Contagious No 11/06/24 06:31 Disease Does patient have nerve No 11/06/24 06:31 stimulator Patient instructed to have No 11/06/24 06:31 device shut off --Does patient have Pacemaker or ICD? When Was Last Pacemaker Check QUESTION #4 FULL TEXT: You/Your Family Experience fever (hyperthermia) with Anesthesia Last Oral Intake Last Oral intake: Last Oral Intake NPO since Meds taken in AM with sips of water? Meds patient instructed to take am of surgery Any additional information?: Yes NPO since: 00:00 PONV PONV - gameplay engineer: PONV - gameplay engineer Female HX of Motion Sickness HX of N/V After Surgery Non-Smoker Duration of Surgery greater than 60 minutes Number of Risk Factors PONV Score Height & Weight Height & Weight: Anesthesia: Height & Weight Height 5 ft 11 in 11/05/24 16:34 Weight: 97.5 kg 11/05/24 16:34 Body Mass Index (BMI) 29.9 11/05/24 16:34 Respiratory Assessment Respiratory Assessment - gameplay engineer: Respiratory Tract Infection Hx - gameplay engineer Hx Respiratory Tract Infection No 11/06/24 06:31 STOP Sleep Apnea STOP Sleep Apnea - gameplay engineer: STOP Sleep Apnea - gameplay engineer Hx Hypertension Yes 11/05/24 16:34 Hx Sleep Apnea No 11/05/24 16:34 CPAP BIPAP Do you snore loudly (louder Yes 11/05/24 16:34 than talking or can be heard Do you often feel tired/ Yes 11/05/24 16:34 fatigued/ sleepy during daytime? Has anyone observed you stop Yes 11/05/24 16:34 breathing during sleep? STOP Results Positive 11/05/24 16:34 QUESTION #5 FULL TEXT : Do you snore loudly (louder than talking or can be heard through closed doors)? Tobacco Use History Tobacco Use History - gameplay engineer: Tobacco Use History - gameplay engineer Tobacco Use Smoking Status Former smoker 11/05/24 16:34 Hx Tobacco Use Yes 11/05/24 16:34 Years Smoking Packs Smoked per Day Smoking Cessation Date was No - quit smoking greater 11/05/24 16:34 within the last 15 years than 15 years ago Hx Smoking Cessation Date Hx Smoking Cessation Counseling Hematologic Medial History Hematologic Hx - gameplay engineer: Hematologic Medical Hx - inspector type Hx of Blood Transfusion No 11/05/24 16:34 Hx of Transfusion in last 3 No 11/05/24 16:34 Months Date of Last Transfusion (if within last 3 months) Ever experience any problems No 11/05/24 16:34 with transfusion(s)? Specify any problems Hx of Preganancy in last 3 N/A 11/05/24 16:34 Months Nurse Filling Out Transfusion CDANTONE 11/05/24 16:34 & Questions: Date: 11/05/24 11/05/24 16:34 Time: 16:39 11/05/24 16:34 Patient unable to answer at this time (ie. confused, unrespo /Reproduction History /Reproductive History - gameplay engineer: /Reproductive Hx- gameplay engineer Hx Now No 11/06/24 06:31 Gestational Age (in weeks): EDC: Hx Hx Para Hx Section SAB No 11/06/24 06:31 Active Medications Active Medications: Current Medications Generic Name Dose Route Start Last Admin Trade Name Freq PRN Reason Stop Dose Admin Albuterol Sulfate 2.5 mg 11/05/24 16:56 Albuterol 2.5 Mg/3 Ml Vial.Neb. INHALATION Q2H PRN PRN SOB &/OR WHEEZING Sodium Chloride 250 mls @ 15 mls/hr 11/05/24 16:36 IV .[id number] PRN Saline Flush Sodium Chloride 250 mls @ 15 mls/hr 11/05/24 16:36 IV .[id number] PRN Additional IVPB Infusion Sodium Chloride 1,000 mls @ 100 mls/hr 11/05/24 17:00 11/06/24 04:24 IV 11/06/24 12:59 100 mls/hr .Q10H GILBERTO Administration Piperacillin Sod/Tazobactam 50 mls @ 12.5 mls/hr 11/05/24 22:00 08/18/25 09:00 Sod 3.375 gm/ Sodium Chloride IV Infused Q8 GILBERTO Infusion Lactated Ringer's 1,000 mls @ 15 mls/hr 11/06/24 11:00 11/06/24 10:56 IV 15 mls/hr .Q48H GILBERTO Administration Ketorolac Tromethamine 15 mg 11/05/24 16:56 Ketorolac 15 Mg/Ml Vial IV 11/10/24 16:58 Q6H PRN PRN Pain Score 1-10 Loratadine 10 mg 11/06/24 10:00 11/06/24 10:28 Loratadine 10 Mg Tablet PO Not Given DAILY [facility] Losartan Potassium 50 mg 11/06/24 10:00 11/06/24 10:28 Losartan Potassium 50 Mg Tablet PO Not Given DAILY [facility] Protocol Melatonin 10 mg 11/05/24 16:56 Melatonin 10 Mg Tablet PO QHS PRN PRN INSOMNIA Morphine Sulfate 2 - 4 mg 11/05/24 16:56 11/06/24 09:47 Morphine 2 Mg/Ml Syringe IV 2 mg Q3H PRN PRN Administration Pain Score 6-10 Morphine Sulfate 2 - 4 mg 11/05/24 17:15 Morphine 4 Mg/Ml Syringe IV Q3H PRN PRN Pain Score 6-10 Ondansetron HCl 4 mg 11/05/24 16:56 11/05/24 22:13 Ondansetron 4 Mg/2 Ml Vial IV 4 mg Q8H PRN PRN Administration NAUSEA/VOMITING Oxycodone HCl 5 mg 11/05/24 16:56 11/06/24 05:04 Oxycodone 5 Mg Tablet PO 5 mg Q4H PRN PRN Administration Pain Score 4-10 Pantoprazole Sodium 40 mg 11/05/24 22:00 11/06/24 10:28 Pantoprazole Sodium 40 Mg Tablet PO Not Given BID GILBERTO Senna/Docusate Sodium 2 tablet 11/05/24 16:56 Senna/Docusate Sodium 1 Tablet PO BID PRN PRN Constipation Sodium Chloride 10 - 40 ml 11/05/24 16:36 11/06/24 09:48 0.9% Saline Lock 10 Ml Syringe IV 10 ml UD PRN Administration SALINE FLUSH PFSH Medical History Depression Anxiety HTN (hypertension) Appendicitis Home Medications ?Medication ?Instructions ?Recorded ?Last Taken ?Type cetirizine 10 mg tablet (Allergy 10 mg PO DAILY allerg ies 11/05/24 Unknown History Relief (cetirizine)) losartan 50 mg tablet 50 mg PO DAILY blood pressur e 11/05/24 Unknown History pantoprazole 40 mg tablet,delayed 40 mg PO BID gerd Unknown History release sertraline 100 mg tablet 100 mg PO DAILY anxiety 10/20 10/13 Unknown History Allergy/AdvReac Type Severity Reaction Status Date / Time azithromycin (From Zithromax) Allergy Severe Rash Verified 11/06/24 11:19 Surgical History H/O sinus surgery H/O hernia repair Social History Smoking Status: Former smoker Review of Systems (Anesthesia) ROS Narrative System reviewed and no additional complaints, except as documented.
--- NOTE | 2024-11-06 11:40 | EX.PCM.CON.G ---
HPI Consult Data Date of Consult: 11/06/24 HPI Narrative Reason for Consultation: Obstructive jaundice HPI Narrative: DOTTIE CHILD, is a 58 M who presents as a transfer from an outside hospital for obstructive jaundice. He admits to developing abdominal pain approximately 2 weeks ago. 2 weeks ago he had a CT abdomen and pelvis with contrast which showed thickening of the gallbladder but no other acute abnormalities. His pain got progressively worse. 4 days ago he had an ultrasound that showed common bile duct of 11 mm, in the ED today his bilirubin was found to be 15 and imaging showed gallbladder sludge and stones. Patient suspected to have choledocholithiasis, given the above he was given antibiotics and [facility] contacted for transfer. Upon arrival his bilirubin was 14, AST of 134, AST 150 and alkaline phosphatase of 250. [facility] Medical History Depression Anxiety HTN (hypertension) Appendicitis Home Medications ?Medication ?Instructions ?Recorded ?Last Taken ?Type cetirizine 10 mg tablet (Allergy 10 mg PO DAILY allergies 11/05/24 Unknown History Relief (cetirizine)) losartan 50 mg tablet 50 mg PO DAILY blood pressure 11/05/24 Unknown History pantoprazole 40 mg tablet,delayed 40 mg PO BID gerd 11/05/24 Unknown History release sertraline 100 mg tablet 100 mg PO DAILY anxiety 11/05/24 Unknown History Allergy/AdvReac Type Severity Reaction Status Date / Time azithromycin (From Zithromax) Allergy Severe Rash Verified 11/06/24 11:19 Surgical History H/O sinus surgery H/O hernia repair Social History Smoking Status: Former smoker ROS Constitutional Constitutional: Denies fatigue, fever(s), poor appetite, weight gain or weight loss Gastrointestinal Gastrointestinal: Denies belching, bloating, change in bowel habits, change in stool character, chewing difficulty, coffee ground emesis, constipation, cramping, diarrhea, dyspepsia, dysphagia, early satiety, excessive flatus, fecal incontinence, heartburn, hematemesis, hematochezia, hemorrhoids, loose stools, melena, nausea, odynophagia, rectal bleeding, tenesmus, vomiting or weight changes Physical Exam Narrative General: Alert, oriented, no apparent distress HEENT: Atraumatic, normocephalic Eyes: Some scleral icterus appreciated, normal conjunctiva, extraocular movements grossly intact Neck: Supple Respiratory: Clear to auscultation bilaterally, normal respiratory effort Cardiovascular: Regular rate and rhythm GI: Soft, somewhat protuberant, did not have any significant tenderness on my evaluation with no rebound, guarding, or rigidity Extremities: No edema Musculoskeletal: Moving all extremities Neuro: No overt focal neurological deficits Skin: No rashes appreciated the patient does appear visually jaundice Psych: Cooperative Lab / Micro Data 11/06/24 05:17 11/06/24 05:17 Labs: Laboratory Results - last 24 hr 11/06/24 05:17: WBC 11.6 H, RBC 4.51 L, Hgb 12.9 L, Hct 38.7 L, MCV 85.8, MCH 28.6, MCHC 33.3, RDW Std Deviation 41.1, RDW Coeff of Selene 13.2, Plt Count 363, MPV 8.9, Immature Gran % (Auto) 0.500, Neut % (Auto) 63.4, Lymph % (Auto) 13.1 L, Gates % (Auto) 9.6, Eos % (Auto) 12.4 H, Baso % (Auto) 1.0, Absolute Neuts (auto) 7.3, Absolute Lymphs (auto) 1.52, Nucleated RBC % 0, Sodium 133, Potassium 3.7, Chloride 98, Carbon Dioxide 21.0, Anion Gap 14, BUN 9, Creatinine 1.18, Estim Creat Clear Calc 80.26, Est GFR (MDRD) Non-Af 71, BUN/Creatinine Ratio 7.9 L, Glucose 109 H, Calcium 8.7, Total Bilirubin 14.00 H, AST 183 H, ALT 229 H, Alkaline Phosphatase 514 H, Total Protein 6.3, Albumin 3.3 L, Globulin 2.9, Albumin/Globulin Ratio 1.1 Imaging Radiology Impression Abdomen/Pelvis CT 11/06/24 06:40 IMPRESSION: Dilated intrahepatic biliary ducts as well as the common bile duct down to the region of the ampulla of Vater. Dilatation of the pancreatic duct at the level of the head of the pancreas. An obstructive mass/lesion should be ruled out in the region of the ampulla Vater. ERCP recommended. Headache cyst dilatation of the gallbladder. Reading Location: [id number] Assessment & Plan Assessment/Plan (1) Choledocholithiasis: (2) Jaundice: PLAN: 58-year-old gentleman with obstructive jaundice and right upper quadrant pain. Differential diagnosis does include biliary stricture, malignancy such as cholangiocarcinoma, choledocholithiasis, choledochal cyst with choledocholithiasis. He will undergo ERCP to evaluate his hepatobiliary tree. He will also get CT scan abdomen pelvis. He was explained alternatives, risk and benefits include not withstanding bleeding, infection, septal, perforation, need for return to . He will have an ASA of 3. Charges/Coding Visit Charges Inpatient E&M: 61651 Init Hosp L3
--- NOTE | 2024-11-06 12:40 | OP.PROVAT_ITS ---
11/06/2024 Beryl Lara Do Re : ERCP procedure for Michael Mejia Dear Dr. Lara This procedure was performed on Wednesday, November 06, 2024. My impressions and recommendations are as follows: Impressions : - The hepatic duct system (Bismuth IV), entire main bile duct, common bile duct and common hepatic duct were dilated, with a stone causing an obstruction. - Choledocholithiasis was found. Complete removal was accomplished by biliary sphincterotomy and balloon extraction. - A biliary sphincterotomy was performed. - The biliary tree was swept and pus, mucus and debris were found. - One temporary stent was placed into the common bile duct. Recommendations : My findings are described in the full procedure note, which is enclosed. If I can be of further assistance, please feel free to contact me at . Sincerely, Tim Murray DO 11/06/2024 12:39:40 PM This report has been signed electronically.
--- NOTE | 2024-11-06 12:40 | OP.ERCP_ITS ---
Patient Name: Michael Mejia Procedure Date: 11/06/2024 11:08 AM Date of : 1965 Age: 58 Procedure: ERCP Indications: Common bile duct stone(s), Abdominal pain of suspected biliary origin, Suspected ascending cholangitis, Jaundice, Elevated liver enzymes Providers: Tim Murray DO Medicines: Monitored Anesthesia Care Patient Profile: This is a 58 year old male. Refer to note in patient chart for documentation of history and physical. This patient has no history of previous ERCP. This patient has no history of surgical alteration of the upper digestive tract anatomy. Complications: No immediate complications. Procedure: Pre-Anesthesia Assessment: - Prior to the procedure, a History and Physical was performed, and patient medications and allergies were reviewed. The patient is competent. The risks and benefits of the procedure and the sedation options and risks were discussed with the patient. All questions were answered and informed consent was obtained. Patient identification and proposed procedure were verified by the physician in the pre-procedure area. Mental Status Examination: alert and oriented. Airway Examination: normal oropharyngeal airway and neck mobility. Respiratory Examination: clear to auscultation. CV Examination: normal. Prophylactic Antibiotics: The patient does not require prophylactic antibiotics. Prior Anticoagulants: The patient has taken no anticoagulant or antiplatelet agents except for NSAID medication. ASA Grade Assessment: II - A patient with mild systemic disease. After reviewing the risks and benefits, the patient was deemed in satisfactory condition to undergo the procedure. The anesthesia plan was to use monitored anesthesia care (MAC). Immediately prior to administration of medications, the patient was re-assessed for adequacy to receive sedatives. The heart rate, respiratory rate, oxygen saturations, blood pressure, adequacy of pulmonary ventilation, and response to care were monitored throughout the procedure. The physical status of the patient was re-assessed after the procedure. After obtaining informed consent, the scope was passed under direct vision. Throughout the procedure, the patient's blood pressure, pulse, and oxygen saturations were monitored continuously. The Duodenoscope was introduced through the mouth, and advanced to the duodenum and used to inject contrast into the bile duct. The ERCP was accomplished without difficulty. The patient tolerated the procedure well. Scope In: 12:17:03 PM Scope Out: 12:29:41 PM Total Procedure Duration Time 0 hours 12 minutes 38 seconds Findings: The agricultural mechanic film was normal. The esophagus was successfully intubated under direct vision. The scope was advanced to a normal major papilla in the descending duodenum without detailed examination of the pharynx, larynx and associated structures, and upper GI tract. The upper GI tract was grossly normal. A long 0.025 inch Jagwire was passed into the biliary tree. The short-nosed traction sphincterotome was passed over the guidewire and the bile duct was then deeply cannulated. Contrast was injected. I personally interpreted the bile duct images. There was brisk flow of contrast through the ducts. Image quality was adequate. Contrast extended to the main bile duct. Contrast extended to the cystic duct. Contrast extended to the gallbladder. Contrast extended to the bifurcation. Contrast extended to the entire biliary tree. Opacification of the entire opacified area, main bile duct, common bile duct, cystic duct, gallbladder, common hepatic duct, hepatic duct bifurcation, left and right hepatic ducts with secondary or tertiary branches of the intrahepatic ducts (Bismuth IV), left and right hepatic ducts and all intrahepatic branches and entire biliary tree was successful. The maximum diameter of the ducts was 15 mm. The lower third of the main bile duct and common hepatic duct contained three stones, the largest of which was 6 mm in diameter. The main bile duct, common bile duct, common hepatic duct, hepatic duct bifurcation and left and right hepatic ducts with secondary or tertiary branches of the intrahepatic ducts (Bismuth IV) were diffusely dilated, with a stone causing an obstruction. The largest diameter was 13 mm. A 5 mm biliary sphincterotomy was made with a traction (standard) sphincterotome using ERBE electrocautery. There was no post-sphincterotomy bleeding. The biliary tree was swept with a 12 mm balloon starting at the upper third of the main bile duct, middle third of the main bile duct, lower third of the main duct, bifurcation, left main hepatic duct, right intrahepatic duct(s) and right main hepatic duct. Sludge was swept from the duct. All stones were removed. Pus was swept from the duct. Mucus was swept from the duct. Debris was swept from the duct. One 10 Fr by 5 cm temporary stent with a single external flap and two internal flaps was placed 5 cm into the common bile duct. Bile flowed through the stent. The stent was in good position. Impression: - The hepatic duct system (Bismuth IV), entire main bile duct, common bile duct and common hepatic duct were dilated, with a stone causing an obstruction. - Choledocholithiasis was found. Complete removal was accomplished by biliary sphincterotomy and balloon extraction. - A biliary sphincterotomy was performed. - The biliary tree was swept and pus, mucus and debris were found. - One temporary stent was placed into the common bile duct. Procedure Code(s): --- Professional --- 37690, Endoscopic retrograde cholangiopancreatography (ERCP); with placement of endoscopic stent into biliary or pancreatic duct, including pre- and post-dilation and guide wire passage, when performed, including sphincterotomy, when performed, each stent [id number], Endoscopic retrograde cholangiopancreatography (ERCP); with removal of calculi/debris from biliary/pancreatic duct(s) 72227, 26, Endoscopic catheterization of the biliary ductal system, radiological supervision and interpretation CPT copyright 2021 [employer]. All rights reserved. The codes documented in this report are preliminary and upon lens cementer review may be revised to meet current compliance requirements. Tim Murray DO 11/06/2024 12:39:40 PM This report has been signed electronically. Number of Addenda: 0 Note Initiated On: 11/06/2024 11:08 AM
--- NOTE | 2024-11-06 13:00 | PCM.POST.ANE ---
Anesthesia: Postop Eval I Current Vital Signs Temperature: 97.9 F Pulse Rate: 92 Blood Pressure: 112/87 Respiratory Rate: 16 Pulse Ox: 93 Oxygen Delivery Method: Room Air Assessment Airway patent: Yes Spontaneous unlabored respirations: Yes Mental status: Awake nausea: No Vomiting: No Anesthesia Complication: No Fluid Hydration Crystalloid volume administer (ml): 600 Total IV fluid infused: 600 Progress Note Anesthesia document: Postop Eval 1 completed: Yes
--- NOTE | 2024-11-06 13:46 | PCM.POSTANE2 ---
Anesthesia Postop Eval I Sum Postop Eval Completion status Anesthesia document: Postop Eval 1 completed: Yes Anesthesia Postop Eval I Summary Anesthesia Postop Eval I Summary: Anesthesia Postop Eval I: Assessment Summary Airway patent Yes 11/06/24 13:01 [email or web address] Spontaneous unlabored Yes 11/06/24 13:01 [email or web address] respirations Mental status Awake 11/06/24 13:01 [email or web address] nausea No 11/06/24 13:01 [email or web address] Vomiting No 11/06/24 13:01 [email or web address] Anesthesia Postop Eval I: Fluid Summary Crystalloid volume administer 600 11/06/24 13:01 [email or web address] (ml) Colloids volume administered ( ml) Blood Product volume administered (ml) Total IV fluid infused 600 11/06/24 13:01 [email or web address] Anesthesia Postop Eval I: Summary Notes Anesthesia Complication No 11/06/24 13:01 [email or web address] Anesthesia Complication Comment: Post-operative progress note Anesthesia: Postop Eval II Evaluation Mental status: Awake and Calm Pain Level: 1 nausea: No Vomiting: No Complications Anesthesia Complication: No
--- NOTE | 2024-11-06 18:54 | PN.HOSP_ITS ---
Reason for Visit Chief Complaint: Abd pain and jaundince Subjective Subjective Patient was seen and examined today, he underwent an ERCP with removal of stones and stent placement. I got a call from general surgery who stated that the patient would be going for cholecystectomy on . Objective Data Objective Data Vital Signs: Vital Signs Temp Pulse Resp BP Pulse Ox O2 Del Method O2 Flow Rate 98.4 F 79 16 139/82 H 98 Room Air 2 11/06/24 17:36 11/06/24 17:36 11/06/24 17:36 11/06/24 17:36 11/06/24 17:36 11/06/24 17:36 11/06/24 15:17 Oxygen Flow Rate (L/min) 2 Oxygen Delivery Method Room Air Weight: 97.5 kg Body Mass Index (BMI) 29.9 Intake & Output: Intake and Output for Last 24 Hours 11/04/24 11/05/24 11/06/24 23:59 23:59 23:59 Intake Total 200 / 200 2360 / 2360 Output Total 1353 / 1353 Balance 200 / 200 1007 / 1007 Lab / Micro Data 11/06/24 05:17 11/06/24 05:17 Labs: Laboratory Results - last 24 hr 11/06/24 05:17: WBC 11.6 H, RBC 4.51 L, Hgb 12.9 L, Hct 38.7 L, MCV 85.8, MCH 28.6, MCHC 33.3, RDW Std Deviation 41.1, RDW Coeff of Selene 13.2, Plt Count 363, MPV 8.9, Immature Gran % (Auto) 0.500, Neut % (Auto) 63.4, Lymph % (Auto) 13.1 L , Sierra % (Auto) 9.6, Eos % (Auto) 12.4 H, Baso % (Auto) 1.0, Absolute Neuts (auto) 7.3, Absolute Lymphs (auto) 1.52, Nucleated RBC % 0, Sodium 133, Potassium 3.7, Chloride 98, Carbon Dioxide 21.0, Anion Gap 14, BUN 9, Creatinine 1.18, Estim Creat Clear Calc 80.26, Est GFR (MDRD) Non-Af 71, BUN/Creatinine Ratio 7.9 L, Glucose 109 H, Calcium 8.7, Total Bilirubin 14.00 H, AST 183 H, ALT 229 H, Alkaline Phosphatase 514 H, Total Protein 6.3, Albumin 3.3 L, Globulin 2.9, Albumin/Globulin Ratio 1.1 Radiography Diagnostic Testing: Radiology Impression Abdomen/Pelvis CT 11/06/24 06:40 IMPRESSION: Dilated intrahepatic biliary ducts as well as the common bile duct down to the region of the ampulla of Vater. Dilatation of the pancreatic duct at the level of the head of the pancreas. An obstructive mass/lesion should be ruled out in the region of the ampulla Vater. ERCP recommended. Headache cyst dilatation of the gallbladder. Reading Location: [id number] Fluoroscopy 11/06/24 08:30 IMPRESSION: Intraoperative fluoroscopy was performed for ERCP. Additionally, 13 fluoroscopic images were obtained. Reading Location: [place] [address] Endo Retro Cholangiopancreatogram 11/06/24 08:30 IMPRESSION: Intraoperative fluoroscopy was performed for ERCP. Additionally, 13 fluoroscopic images were obtained. Reading Location: [place] [address] Physical Exam Const alert, oriented x3, no apparent distress and average body habitus General Appearance: cooperative, well kempt and well developed Orientation / Consciousness: awake, oriented to person, oriented to place and oriented to time HEENT normocephalic, head/scalp atraumatic and moist oral mucous membranes Eyes PERRL, EOMs intact bilaterally and conjunctivae normal Neck supple, no JVD, thyroid normal and no carotid bruits General: trachea midline Resp normal respiratory effort, no retractions, no use of accessory muscles and clear to auscultation bilaterally Auscultation: Negative for rales, rhonchi or wheezes Cardio regular rate, regular rhythm, S1 normal heart sound, S2 normal heart sound, no murmurs, no rub and no gallops GI normal to inspection, nondistended, normoactive bowel sounds, soft to palpation, non-tender and non-distended Extremity no clubbing, cyanosis or edema Skin Skin Narrative: Patient is jaundiced Neuro oriented x3, CN's II-XII intact bilaterally, moves all extremities, no focal motor deficits and no sensory deficits noted Sensorium / Orientation: awake and alert Speech: speech normal Psych affect normal Assessment & Plan Assessment/Plan (1) Choledocholithiasis: PLAN: Plan 1. Choledocholithiasis with jaundice-patient underwent an ERCP with removal of stones and stent placement, he will undergo a cholecystectomy later on in the week #2 essential hypertension-patient will remain on losartan #3 chronic anxiety-patient is on Zoloft Total clinical time spent by myself addressing the patient's medical issues, reviewing all of his data, and collaborating with patient's care team: 35 minutes Charges/Coding Visit Charges Inpatient E&M: 94864 Subs Hosp L2
[2024-11-06] MEDS: MELATONIN 10 MG TABLET PO (20:50)
[2024-11-07] MEDS: Piperacil/Tazobactam 3.375 GM in 0.9% Normal Saline (50mL MB+) 50 ML IV ×3 (05:06→22:49)
[2024-11-07 05:16] VITALS: BP 128/74; PULSE 64; RESP 16; TEMP 36.6; O2SAT 96
[2024-11-07 08:47] VITALS: BP 122/76; PULSE 91; RESP 16; TEMP 36.7; O2SAT 94
--- NOTE | 2024-11-07 14:07 | PN.SURG_ITS ---
Subjective Subjective Patient is doing well and tolerating a diet Objective Data Objective Data Vital Signs: Vital Signs Temp Pulse Resp BP Pulse Ox O2 Del Method O2 Flow Rate 98.0 F 91 16 122/76 H 94 Room Air 2 11/07/24 08:47 11/07/24 08:47 11/07/24 08:47 11/07/24 08:47 11/07/24 08:47 11/07/24 08:47 11/06/24 15:17 Oxygen Flow Rate (L/min) 2 Oxygen Delivery Method Room Air Weight: 214 lb 15.211 oz Body Mass Index (BMI) 29.9 Intake & Output: Intake and Output for Last 24 Hours 11/05/24 11/06/24 11/07/24 23:59 23:59 23:59 Intake Total 200 / 200 2410 / 2410 1008.5 / 1008.5 Output Total 1353 / 1353 700 / 700 Balance 200 / 200 1057 / 1057 308.5 / 308.5 Lab / Micro Data 11/06/24 05:17 11/06/24 05:17 Physical Exam Const oriented x3 and no apparent distress Resp normal respiratory effort GI soft to palpation and non-tender Assessment & Plan Assessment/Plan (1) Choledocholithiasis: PLAN: Patient had ERCP with stone removal and stent placement. He is doing well. I have him on for at 730 for laparoscopic cholecystectomy. I discussed the procedure in detail with the patient. I discussed the risks, benefits, and alternatives of the procedure. I discussed the risks including but not limited to bleeding, infection, injury to surrounding organs such as the liver, bile duct, bowels. I did discuss the possibility of having to convert to an open procedure as well as the possibility that if any injuries occurred this may necessitate further surgery at a tertiary care center. Boston Williamson MD Pager: [facility] [address] [place] [address], [address] [place] [address] Office:
[2024-11-07] MEDS: 0.9% Normal Saline (250mL Bag) 250 ML 15 ML IV (15:12)
[2024-11-07 15:14] VITALS: BP 123/78; PULSE 75; RESP 16; TEMP 36.6; O2SAT 98
--- NOTE | 2024-11-07 15:58 | PCM.PN.BLA ---
Progress Note Patient underwent ERCP with stone removal yesterday. He is not having any abdominal pain. He is scheduled for cholecystectomy on 11/09/2024. Physical Exam Const alert, oriented x3, no apparent distress and average body habitus General Appearance: cooperative, well kempt and well developed Orientation / Consciousness: awake, oriented to person, oriented to place and oriented to time HEENT normocephalic, head/scalp atraumatic and moist oral mucous membranes Eyes PERRL, EOMs intact bilaterally and conjunctivae normal Neck supple, no JVD, thyroid normal and no carotid bruits General: trachea midline Resp normal respiratory effort, no retractions, no use of accessory muscles and clear to auscultation bilaterally Auscultation: Negative for rales, rhonchi or wheezes Cardio regular rate, regular rhythm, S1 normal heart sound, S2 normal heart sound, no murmurs, no rub and no gallops GI normal to inspection, nondistended, normoactive bowel sounds, soft to palpation, non-tender and non-distended Extremity no clubbing, cyanosis or edema Skin Skin Narrative: Patient is jaundiced Neuro oriented x3, CN's II-XII intact bilaterally, moves all extremities, no focal motor deficits and no sensory deficits noted Sensorium / Orientation: awake and alert Speech: speech normal Psych affect normal Assessment & Plan Assessment/Plan (1) Choledocholithiasis: (2) Jaundice: PLAN: Patient is status post ERCP with stone removal and stent placement. Recommend repeat LFTs. Continue current diet. The patient for cholecystectomy on 11/07/2024. Visit Charges Inpatient E&M: 93423 Subs Hosp L2
[2024-11-07] MEDS: 0.9% Saline Lock 10 ML Syringe IV (18:07)
--- NOTE | 2024-11-07 18:52 | PCM.PN.HOSP ---
Reason for Visit Chief Complaint: Abd pain and jaundince Subjective Subjective Patient was seen and examined today, he voices no complaints. Objective Data Objective Data Vital Signs: Vital Signs Temp Pulse Resp BP Pulse Ox O2 Del Method O2 Flow Rate 97.8 F 75 16 123/78 H 98 Room Air 2 11/07/24 15:14 11/07/24 15:14 11/07/24 15:14 11/07/24 15:14 11/07/24 15:14 11/07/24 15:14 11/06/24 15:17 Oxygen Flow Rate (L/min) 2 Oxygen Delivery Method Room Air Weight: 97.5 kg Body Mass Index (BMI) 29.9 Intake & Output: Intake and Output for Last 24 Hours 11/05/24 11/06/24 11/07/24 23:59 23:59 23:59 Intake Total 200 / 200 2410 / 2410 1008.75 / 1008.75 Output Total 1353 / 1353 1900 / 1900 Balance 200 / 200 1057 / 1057 -891.25 / -891.25 Lab / Micro Data 11/06/24 05:17 11/06/24 05:17 Physical Exam Narrative alert, oriented x3, no apparent distress and average body habitus General Appearance: cooperative, well kempt and well developed Orientation / Consciousness: awake, oriented to person, oriented to place and oriented to time HEENT normocephalic, head/scalp atraumatic and moist oral mucous membranes Eyes PERRL, EOMs intact bilaterally and conjunctivae normal Neck supple, no JVD, thyroid normal and no carotid bruits General: trachea midline Resp normal respiratory effort, no retractions, no use of accessory muscles and clear to auscultation bilaterally Auscultation: Negative for rales, rhonchi or wheezes Cardio regular rate, regular rhythm, S1 normal heart sound, S2 normal heart sound, no murmurs, no rub and no gallops GI normal to inspection, nondistended, normoactive bowel sounds, soft to palpation, non-tender and non-distended Extremity no clubbing, cyanosis or edema Skin Skin Narrative: Patient is jaundiced Neuro oriented x3, CN's II-XII intact bilaterally, moves all extremities, no focal motor deficits and no sensory deficits noted Sensorium / Orientation: awake and alert Speech: speech normal Psych affect normal Assessment & Plan Assessment/Plan (1) Choledocholithiasis: PLAN: Plan 1. Choledocholithiasis with jaundice-patient underwent an ERCP with removal of stones and stent placement, he will undergo a cholecystectomy later on in the week, I will repeat the patient's CMP tomorrow #2 essential hypertension-patient will remain on losartan #3 chronic anxiety-patient is on Zoloft #4 cholecystitis-patient remains on IV antibiotics Total clinical time spent by myself addressing the patient's medical issues, reviewing all of his data, and collaborating with patient's care team: 35 minutes Charges/Coding Visit Charges Inpatient E&M: 63867 Subs Hosp L2
[2024-11-07 21:05] VITALS: BP 110/71; PULSE 60; RESP 15; TEMP 36.8; O2SAT 97
[2024-11-07 21:07] VITALS: BP 110/71; PULSE 60; RESP 15; TEMP 36.7; O2SAT 99
[2024-11-08 03:00] VITALS: BP 125/72; PULSE 58; RESP 15; TEMP 36.6; O2SAT 96
[2024-11-08] MEDS: Piperacil/Tazobactam 3.375 GM in 0.9% Normal Saline (50mL MB+) 50 ML IV ×3 (05:46→21:22)
[2024-11-08 06:41] LABS: Hematocrit 35.9 % (40-54); Hemoglobin 12.2 g/dL (13.0-16.5); Immature Granulocytes Count 0.060 X10^3/uL (0.0-0.0); Mean Corp Hgb Conc 34.0 g/dL (32-36); Mean Corpuscular Volume 86.1 fL (80-94); Mean Platelet Vol. 8.7 fl (6.2-12.0); NRBC Flagged by Analyzer 0 % (0-5); Platelet Count 372 K/mm3 (150-450); RBC Distribution Width CV 14.1 % (11.6-14.6); RBC Distribution Width SD 43.8 fl (35.1-43.9); Red Blood Count 4.17 M/mm3 (4.6-6.2); White Blood Count 10.5 K/mm3 (4.4-11.0)
[2024-11-08 07:13] LABS: AST(SGOT) 51 U/L (<=37); Alanine Aminotransfer ALT/SGPT 124 U/L (<=46); Albumin, Serum 3.2 g/dL (3.5-5.0); Alkaline Phosphatase 343 U/L (40-129); Anion Gap 12 (5-15); BUN 12 mg/dL (4-19); BUN/Creat Ratio 12.2 RATIO (10-20); Calcium,Total 8.7 mg/dL (7.6-11.0); Carbon Dioxide 24.8 mmol/L (21.0-32.0); Chloride 100 mmol/L (98-108); Estimated Creatinine Clearance 92.85 ml/min (50-250); Globulin 2.7 g/dL (2.2-4.2); Glucose 90 mg/dL (70-99); Potassium 3.8 mmol/L (3.3-5.1)
--- NOTE | 2024-11-08 07:59 | PN.SURG_ITS ---
Subjective Subjective Patient evaluated resting comfortably in bed. He notes epigastric/right upper quadrant discomfort. He denies any nausea, vomiting. He notes his main compliant is sore throat. Objective Data Objective Data Vital Signs: Vital Signs Temp Pulse Resp BP Pulse Ox O2 Del Method O2 Flow Rate 97.8 F 58 L 15 125/72 H 96 Room Air 2 11/08/24 03:00 11/08/24 03:00 11/08/24 03:00 11/08/24 03:00 11/08/24 03:00 11/08/24 03:00 11/06/24 15:17 Oxygen Flow Rate (L/min) 2 Oxygen Delivery Method Room Air Weight: 214 lb 15.211 oz Body Mass Index (BMI) 29.9 Intake & Output: Intake and Output for Last 24 Hours 11/06/24 11/07/24 11/08/24 23:59 23:59 23:59 Intake Total 2410 / 2410 1058.75 / 1358.75 350 / 350 Output Total 1353 / 1353 1900 / 2500 1050 / 1050 Balance 1057 / 1057 -841.25 / -1141.25 -700 / -700 Lab / Micro Data 11/08/24 06:16 11/08/24 06:16 Labs: Laboratory Results - last 24 hr 11/08/24 06:16: WBC 10.5, RBC 4.17 L, Hgb 12.2 L, Hct 35.9 L, MCV 86.1, MCH 29.3, MCHC 34.0, RDW Std Deviation 43.8, RDW Coeff of Selene 14.1, Plt Count 372, MPV 8.7, Immature Gran % (Auto) 0.600, Neut % (Auto) 71.8 H, Lymph % (Auto) 17.6 L, [place] % (Auto) 6.9, Eos % (Auto) 2.2, Baso % (Auto) 0.9, Absolute Neuts (auto) 7.6, Absolute Lymphs (auto) 1.85, Nucleated RBC % 0, Sodium 136, Potassium 3.8, Chloride 100, Carbon Dioxide 24.8, Anion Gap 12, BUN 12, Creatinine 1.02, Estim Creat Clear Calc 92.85, Est GFR (MDRD) Non-Af 85, BUN/Creatinine Ratio 12.2, Glucose 90, Calcium 8.7, Total Bilirubin 3.40 H, AST 51 H, ALT 124 H, Alkaline Phosphatase 343 H, Total Protein 5.9, Albumin 3.2 L, Globulin 2.7, Albumin/Globulin Ratio 1.2 Physical Exam GI GI Narrative: Abdomen- soft, tenderness in the RUQ/epigastric region Assessment & Plan Assessment/Plan (1) Choledocholithiasis: PLAN: I am following this patient in conjunction with Dr. Ly in Dr. Williamson's absence. He has independently evaluated this patient. Labs reviewed. Liver enzymes trending down Plan for cholecystectomy tomorrow morning with Dr. Williamson Continue IV antibiotics Consent in place NPO after midnight Hopeful discharge tomorrow afternoon following the procedure We will continue to monitor this patient Charges/Coding Visit Charges Inpatient E&M: 46186 Subs Hosp L2
[2024-11-08 09:05] VITALS: BP 103/59; PULSE 82; RESP 16; TEMP 36.7; O2SAT 97
[2024-11-08 15:00] VITALS: BP 115/73; PULSE 72; RESP 16; TEMP 36.1; O2SAT 99
[2024-11-08] MEDS: BENZOCAINE/MENTHOL 1 LOZENGE 2 LOZENGE MUCOUS MEM (16:17)
--- NOTE | 2024-11-08 18:04 | PCM.PN.HOSP ---
Reason for Visit Chief Complaint: Abd pain and jaundince Subjective Subjective Patient was seen and examined, he appears in no distress. Patient's blood work was improved with a decrease in his bilirubin. Objective Data Objective Data Vital Signs: Vital Signs Temp Pulse Resp BP Pulse Ox O2 Del Method O2 Flow Rate 97.0 F L 72 16 115/73 99 Room Air 2 11/08/24 15:00 11/08/24 15:00 11/08/24 15:00 11/08/24 15:00 11/08/24 15:00 11/08/24 15:00 11/06/24 15:17 Oxygen Flow Rate (L/min) 2 Oxygen Delivery Method Room Air Weight: 97.5 kg Body Mass Index (BMI) 29.9 Intake & Output: Intake and Output for Last 24 Hours 11/06/24 11/07/24 11/08/24 23:59 23:59 23:59 Intake Total 2410 / 2410 1058.75 / 1358.75 400 / 400 Output Total 1353 / 1353 1900 / 2500 1050 / 1050 Balance 1057 / 1057 -841.25 / -1141.25 -650 / -650 Lab / Micro Data 11/08/24 06:16 11/08/24 06:16 Labs: Laboratory Results - last 24 hr 11/08/24 06:16: WBC 10.5, RBC 4.17 L, Hgb 12.2 L, Hct 35.9 L, MCV 86.1, MCH 29.3, MCHC 34.0, RDW Std Deviation 43.8, RDW Coeff of Selene 14.1, Plt Count 372, MPV 8.7, Immature Gran % (Auto) 0.600, Neut % (Auto) 71.8 H, Lymph % (Auto) 17.6 L, [place] % (Auto) 6.9, Eos % (Auto) 2.2, Baso % (Auto) 0.9, Absolute Neuts (auto) 7.6, Absolute Lymphs (auto) 1.85, Nucleated RBC % 0, Sodium 136, Potassium 3.8, Chloride 100, Carbon Dioxide 24.8, Anion Gap 12, BUN 12, Creatinine 1.02, Estim Creat Clear Calc 92.85, Est GFR (MDRD) Non-Af 85, BUN/Creatinine Ratio 12.2, Glucose 90, Calcium 8.7, Total Bilirubin 3.40 H, AST 51 H, ALT 124 H, Alkaline Phosphatase 343 H, Total Protein 5.9, Albumin 3.2 L, Globulin 2.7, Albumin/Globulin Ratio 1.2 Physical Exam Narrative alert, oriented x3, no apparent distress and average body habitus General Appearance: cooperative, well kempt and well developed Orientation / Consciousness: awake, oriented to person, oriented to place and oriented to time HEENT normocephalic, head/scalp atraumatic and moist oral mucous membranes Eyes PERRL, EOMs intact bilaterally and conjunctivae normal Neck supple, no JVD, thyroid normal and no carotid bruits General: trachea midline Resp normal respiratory effort, no retractions, no use of accessory muscles and clear to auscultation bilaterally Auscultation: Negative for rales, rhonchi or wheezes Cardio regular rate, regular rhythm, S1 normal heart sound, S2 normal heart sound, no murmurs, no rub and no gallops GI normal to inspection, nondistended, normoactive bowel sounds, soft to palpation, non-tender and non-distended Extremity no clubbing, cyanosis or edema Skin Skin Narrative: Patient is jaundiced Neuro oriented x3, CN's II-XII intact bilaterally, moves all extremities, no focal motor deficits and no sensory deficits noted Sensorium / Orientation: awake and alert Speech: speech normal Psych affect normal Assessment & Plan Assessment/Plan (1) Choledocholithiasis: PLAN: Plan 1. Choledocholithiasis with jaundice-patient underwent an ERCP with removal of stones and stent placement, he will undergo a cholecystectomy later on 11/09/2024 #2 essential hypertension-patient will remain on losartan #3 chronic anxiety-patient is on Zoloft #4 cholecystitis-patient remains on IV antibiotics Total clinical time spent by myself addressing the patient's medical issues, reviewing all of his data, and collaborating with patient's care team: 35 minutes Charges/Coding Visit Charges Inpatient E&M: 09558 Subs Hosp L2
[2024-11-08 21:27] VITALS: BP 102/65; PULSE 71; RESP 16; TEMP 36.6; O2SAT 97
[2024-11-09] VITALS (19 sets, daily range): BP systolic 107–138; BP diastolic 46–95; PULSE 61–75; RESP 12–22; TEMP 36.1–36.8; O2SAT 90–97
[2024-11-09] MEDS: Piperacil/Tazobactam 3.375 GM in 0.9% Normal Saline (50mL MB+) 50 ML IV ×3 (05:01→22:25)
[2024-11-09 06:56] LABS: Hematocrit 39.1 % (40-54); Hemoglobin 13.0 g/dL (13.0-16.5); Immature Granulocytes Count 0.040 X10^3/uL (0.0-0.0); Mean Corp Hgb Conc 33.2 g/dL (32-36); Mean Corpuscular Volume 87.1 fL (80-94); Mean Platelet Vol. 8.7 fl (6.2-12.0); NRBC Flagged by Analyzer 0 % (0-5); Platelet Count 356 K/mm3 (150-450); RBC Distribution Width CV 14.4 % (11.6-14.6); RBC Distribution Width SD 45.8 fl (35.1-43.9); Red Blood Count 4.49 M/mm3 (4.6-6.2); White Blood Count 8.4 K/mm3 (4.4-11.0)
[2024-11-09] MEDS: 0.9% Normal Saline (1000mL) 1,000 ML 15 ML IV (07:10)
[2024-11-09 07:17] LABS: AST(SGOT) 67 U/L (<=37); Alanine Aminotransfer ALT/SGPT 130 U/L (<=46); Albumin, Serum 3.4 g/dL (3.5-5.0); Alkaline Phosphatase 323 U/L (40-129); Anion Gap 11 (5-15); BUN 13 mg/dL (4-19); BUN/Creat Ratio 12.6 RATIO (10-20); Calcium,Total 8.7 mg/dL (7.6-11.0); Carbon Dioxide 25.6 mmol/L (21.0-32.0); Chloride 99 mmol/L (98-108); Estimated Creatinine Clearance 90.19 ml/min (50-250); Globulin 2.9 g/dL (2.2-4.2); Glucose 92 mg/dL (70-99); Potassium 4.2 mmol/L (3.3-5.1)
--- NOTE | 2024-11-09 07:23 | PCM.PRE.AN2 ---
ASA Classification* ASA Classification ASA Classification: 3 Assessment & Plan Anesthesia* Anesthesia Assessment Anesthesia Assessment: Discussed sedation and/or anesthesia options, risks, benefits, and alternatives with patient/parents/legal guardian/POA. Questions invited. The patient/parents/legal guardian/POA seems to understand and agrees to proceed with anesthesia plan. Reviewed the physical assessment, medical history, allergy history and patient home medications list prior to surgery/procedure/anesthetic and documented any changes. Performed airway and anesthesia risk assessments. Anesthesia Type Anesthesia Type: General History Source History Obtained from:: Patient and Chart Anesthesia Focused Assessment* Temperature: 97.7 F Pulse Rate: 66 Blood Pressure: 129/95 Respiratory Rate: 16 Pulse Ox: 95 Oxygen Delivery Method: Room Air Oxygen Flow Rate (L/min): 2 Airway Assessment Mouth opens: 2 cm Mallampati Score: II Teeth Condition: Chipped/Broken Neck Range of motion (ROM): Full ROM Labs Anesthesia Preop lab: CBC WBC 8.4 K/mm3 (4.4-11.0) 11/09/24 06:23 11/09/24 RBC 4.49 M/mm3 (4.6-6.2) L 11/09/24 06:23 11/09/24 Hgb 13.0 g/dL (13.0-16.5) 11/09/24 06:23 11/09/24 Hct 39.1 % (40-54) L 11/09/24 06:23 11/09/24 Plt Count 356 K/mm3 (150-450) 11/09/24 06:23 11/09/24 CHEMISTRY Potassium 4.2 mmol/L (3.3-5.1) 11/09/24 06:23 11/09/24 Sodium 136 mmol/L (133-145) 11/09/24 06:23 11/09/24 BUN 13 mg/dL (4-19) 11/09/24 06:23 11/09/24 Creatinine 1.05 mg/dL (0.70-1.20) 11/09/24 06:23 11/09/24 Glucose 92 mg/dL (70-99) 11/09/24 06:23 11/09/24 COAG Pre-Assessment Diagnosis/Proposed Procedure Planned Operative Procedure(s): Endoscopic retrograde cholangiopancreatography Anesthesia History Anesthesia History - community service officer: Anesthesia History - community service officer Hx Hospitalization Any Problems With Anesthesia No 11/09/24 02:23 Cholinesterase deficiency No 11/09/24 02:23 You/Your Family Experience No 11/09/24 02:23 fever (hyperthermia) with Relationship Recent Exposure to Contagious No 11/09/24 02:23 Disease Does patient have nerve No 11/09/24 02:23 stimulator Patient instructed to have No 11/09/24 02:23 device shut off --Does patient have Pacemaker No 11/09/24 05:09 or ICD? When Was Last Pacemaker Check QUESTION #4 FULL TEXT: You/Your Family Experience fever (hyperthermia) with Anesthesia Last Oral Intake Last Oral intake: Last Oral Intake NPO since 00:00 11/09/24 05:09 Meds taken in AM with sips of No 11/09/24 05:09 water? Meds patient instructed to take am of surgery PONV PONV - community service officer: PONV - community service officer Female HX of Motion Sickness HX of N/V After Surgery Non-Smoker Duration of Surgery greater than 60 minutes Number of Risk Factors PONV Score Height & Weight Height & Weight: Anesthesia: Height & Weight Height 5 ft 11 in 11/06/24 13:19 Weight: 97.5 kg 11/09/24 05:09 Body Mass Index (BMI) 29.9 11/05/24 16:34 Respiratory Assessment Respiratory Assessment - community service officer: Respiratory Tract Infection Hx - community service officer Hx Respiratory Tract Infection No 11/09/24 02:23 STOP Sleep Apnea STOP Sleep Apnea - community service officer: STOP Sleep Apnea - community service officer Hx Hypertension Yes 11/05/24 16:34 Hx Sleep Apnea No 11/06/24 13:00 CPAP BIPAP Do you snore loudly (louder Yes 11/05/24 16:34 than talking or can be heard Do you often feel tired/ Yes 11/05/24 16:34 fatigued/ sleepy during daytime? Has anyone observed you stop Yes 11/05/24 16:34 breathing during sleep? STOP Results Positive 11/06/24 12:45 QUESTION #5 FULL TEXT : Do you snore loudly (louder than talking or can be heard through closed doors)? Tobacco Use History Tobacco Use History - community service officer: Tobacco Use History - community service officer Tobacco Use Smoking Status Former smoker 11/08/24 08:02 Hx Tobacco Use Yes 11/05/24 16:34 Years Smoking Packs Smoked per Day Smoking Cessation Date was No - quit smoking greater 11/05/24 16:34 within the last 15 years than 15 years ago Hx Smoking Cessation Date Hx Smoking Cessation Counseling Hematologic Medial History Hematologic Hx - community service officer: Hematologic Medical Hx - epidemiology intern Hx of Blood Transfusion No 11/05/24 16:34 Hx of Transfusion in last 3 No 11/05/24 16:34 Months Date of Last Transfusion (if within last 3 months) Ever experience any problems No 11/05/24 16:34 with transfusion(s)? Specify any problems Hx of Preganancy in last 3 N/A 11/05/24 16:34 Months Nurse Filling Out Transfusion CDANTONE 11/05/24 16:34 & Questions: Date: 11/05/24 11/05/24 16:34 Time: 16:39 11/05/24 16:34 Patient unable to answer at this time (ie. confused, unrespo /Reproduction History /Reproductive History - community service officer: /Reproductive Hx- community service officer Hx Now No 11/09/24 02:23 Gestational Age (in weeks): EDC: Hx Hx Para Hx Section SAB No 11/09/24 02:23 Active Medications Active Medications: Current Medications Generic Name Dose Route Start Last Admin Trade Name Freq PRN Reason Stop Dose Admin Albuterol Sulfate 2.5 mg 11/05/24 16:56 Albuterol 2.5 Mg/3 Ml Vial.Neb. INHALATION Q2H PRN PRN SOB &/OR WHEEZING Sodium Chloride 250 mls @ 15 mls/hr 11/05/24 16:36 11/08/24 21:25 IV 0 mls/hr .[id number] PRN Infusion Saline Flush Sodium Chloride 250 mls @ 15 mls/hr 11/05/24 16:36 IV .[id number] PRN Additional IVPB Infusion Piperacillin Sod/Tazobactam 50 mls @ 12.5 mls/hr 11/05/24 22:00 11/09/24 05:01 Sod 3.375 gm/ Sodium Chloride IV 12.5 mls/hr Q8 GILBERTO Administration Sodium Chloride 250 mls @ 15 mls/hr 11/06/24 17:23 IV .[id number] PRN Saline Flush Sodium Chloride 250 mls @ 15 mls/hr 11/06/24 17:23 IV .[id number] PRN Additional IVPB Infusion Sodium Chloride 1,000 mls @ 15 mls/hr 11/09/24 07:00 11/09/24 07:10 IV 15 mls/hr .Q48H GILBERTO Administration Ketorolac Tromethamine 15 mg 11/05/24 16:56 Ketorolac 15 Mg/Ml Vial IV 11/10/24 16:58 Q6H PRN PRN Pain Score 1-10 Loratadine 10 mg 11/06/24 10:00 11/08/24 09:33 Loratadine 10 Mg Tablet PO 10 mg DAILY GILBERTO Administration Losartan Potassium 50 mg 11/06/24 10:00 11/08/24 09:33 Losartan Potassium 50 Mg Tablet PO 50 mg DAILY GILBERTO Administration Protocol Melatonin 10 mg 11/05/24 16:56 11/06/24 20:50 Melatonin 10 Mg Tablet PO 10 mg QHS PRN PRN Administration INSOMNIA Morphine Sulfate 2 - 4 mg 11/05/24 16:56 11/06/24 09:47 Morphine 2 Mg/Ml Syringe IV 2 mg Q3H PRN PRN Administration Pain Score 6-10 Morphine Sulfate 2 - 4 mg 11/05/24 17:15 Morphine 4 Mg/Ml Syringe IV Q3H PRN PRN Pain Score 6-10 Ondansetron HCl 4 mg 11/05/24 16:56 11/07/24 18:07 Ondansetron 4 Mg/2 Ml Vial IV 4 mg Q8H PRN PRN Administration NAUSEA/VOMITING Oxycodone HCl 5 mg 11/05/24 16:56 11/07/24 18:07 Oxycodone 5 Mg Tablet PO 5 mg Q4H PRN PRN Administration Pain Score 4-10 Pantoprazole Sodium 40 mg 11/05/24 22:00 11/08/24 21:23 Pantoprazole Sodium 40 Mg Tablet PO 40 mg BID GILBERTO Administration Senna/Docusate Sodium 2 tablet 11/05/24 16:56 Senna/Docusate Sodium 1 Tablet PO BID PRN PRN Constipation Sodium Chloride 10 - 40 ml 11/05/24 16:36 11/07/24 18:07 0.9% Saline Lock 10 Ml Syringe IV 30 ml UD PRN Administration SALINE FLUSH Sodium Chloride 10 - 40 ml 11/06/24 17:23 0.9% Saline Lock 10 Ml Syringe IV UD PRN SALINE FLUSH Throat Lozenges 2 lozenge 11/08/24 11:06 11/08/24 16:17 Benzocaine/Menthol 1 Lozenge MUCOUS MEM 2 lozenge Q2H PRN PRN Administration SORE THROAT PFSH Medical History Depression Anxiety HTN (hypertension) Appendicitis Home Medications ?Medication ?Instructions ?Recorded ?Last Taken ?Type cetirizine 10 mg tablet (Allergy 10 mg PO DAILY allergies 11/05/24 Unknown History Relief (cetirizine)) losartan 50 mg tablet 50 mg PO DAILY blood pressure 11/05/24 Unknown History pantoprazole 40 mg tablet,delayed 40 mg PO BID gerd 11/05/24 Unknown History release sertraline 100 mg tablet 100 mg PO DAILY anxiety 11/05/24 Unknown History Allergy/AdvReac Type Severity Reaction Status Date / Time azithromycin (From Zithromax) Allergy Severe Rash Verified 11/06/24 11:19 Surgical History H/O sinus surgery H/O hernia repair Social History Smoking Status: Former smoker Review of Systems (Anesthesia) ROS Narrative System reviewed and no additional complaints, except as documented.
[2024-11-09] MEDS: Midazolam 2 MG/2 ML Syringe IV (07:28)
--- NOTE | 2024-11-09 07:30 | GALL_PTH ---
PATIENT: DOTTIE CHILD LOC: MS3 U#:[id number] AGE/SX: 58/M ROOM: [facility] [place] RE11/05/[address]: Dr. Micky Meadows DO : 1965 BED: 1 DIS: 11/10/2024 SPEC #: [id number] RECD: 11/09/24 09:50 STATUS: [facility] #: [id number] CHAVA: 11/09/24 07:[address]: Boston Williamson DEPT: SURGICAL PATHOLOGY RECD BY: Sabino Reed ENTERED: 11/09/24 10:15 SP TYPE: MAURO FARLEY DR: DO Dr. Micky Martin DO Dr. Paige Pierce, MD Tissues: A - Gallbladder, NOS Procedures: Surgery Specimen Level III HEADER OPERATION: Laparoscopic cholecystectomy with IOC PRE-OP DIAGNOSIS: Jaundice, concern for choledocholithiasis TISSUE SUBMITTED: A- Gallbladder MICROSCOPIC DIAGNOSIS A. Gallbladder, laparoscopic cholecystectomy: * Acute and chronic cholecystitis with mucosal erosion, hemorrhage and cholelithiasis MICROSCOPIC DESCRIPTION Slides are reviewed. GROSS DESCRIPTION A. Received in formalin labeled with the patient's name and date of . Designated as gallbladder is a 8.3 x 3.7 x 3.4 cm pink-red shaggy and disrupted gallbladder with attached cystic duct (inked black, shaved); the patency is unable to be determined. A lymph node is not present. The mucosa is pink to red and granular with patchy ulcerations and necrosis; sectioning reveals diffusely fibrotic and focally edematous wall with patchy necrosis and a maximum thickness of 0.7 cm. No cholesterolosis is identified. Within the container are a few possible pigmented choleliths, all <0.1 cm. Blankbook Forwarder sections are submitted in 2 cassettes, to include the margin in cassette A1. AR 11/09/2024 CPT:[id number]
[2024-11-09] MEDS: Lidocaine 1% (5 ml sdv) 5 ML Vial IV (07:35)
--- NOTE | 2024-11-09 07:45 | RAD_ITS ---
PROCEDURE: CHOLANGIOGRAM/ O R,INITIAL; O.R. FLUORO FOR C-ARM 11/09/2024 REASON FOR EXAM: CHOLECYSTECTOMY WITH IOC TECHNIQUE: CHOLANGIOGRAM/ O R,INITIAL; O.R. FLUORO FOR C-ARM Fluoroscopy time: 23.9 seconds. Dose: 16.72 mGy. COMPARISON: CT examination of 11/06/2024. RAD/Cholangiogram/ O R,Initial IMPRESSION: Intraoperative fluoroscopy was performed for ERCP. Numerous fluoroscopic image s were also obtained. Also, cholelithiasis is seen. Reading Location: [place] [address]
--- NOTE | 2024-11-09 07:45 | RAD_ITS ---
PROCEDURE: CHOLANGIOGRAM/ O R,INITIAL; O.R. FLUORO FOR C-ARM 11/09/2024 REASON FOR EXAM: CHOLECYSTECTOMY WITH IOC TECHNIQUE: CHOLANGIOGRAM/ O R,INITIAL; O.R. FLUORO FOR C-ARM Fluoroscopy time: 23.9 seconds. Dose: 16.72 mGy. COMPARISON: CT examination of 11/06/2024. RAD/O.R. Fluoro for C-Arm IMPRESSION: Intraoperative fluoroscopy was performed for ERCP. Numerous fluoroscopic image s were also obtained. Also, cholelithiasis is seen. Reading Location: [place] [address]
[2024-11-09] MEDS: fentaNYL 100 MCG/2 ML Ampul 200 MCG IV (08:22)
[2024-11-09] MEDS: 0.9% Normal Saline (1000mL) 2,000 ML 2000 ML IV (08:46)
[2024-11-09] MEDS: Bupiv/Epi 0.25% 30 ML Vial (09:01)
--- NOTE | 2024-11-09 09:04 | PCM.OPRPT ---
Operative Report (Standard) Operative Information Date of Procedure: 11/09/24 Pre-Operative Diagnosis: Choledocholithiasis with acute cholecystitis Post-Operative Diagnosis: Same Surgery/Procedure Performed: Laparoscopic cholecystectomy with cholangiograms riding coach: Yes Stock House Worker: Vandana Gamboa Tasks completed by technical assistance consultant: Opening & closing and Retracting Type of Anesthesia: General/Regional RN Documented Start/Stop Times: Operation Date: 11/09/24 07:30 Case Time Into Pre-Op 11/09/24 06:55 Anesthesia Start 11/09/24 07:28 Into Room 11/09/24 07:28 Out of Pre-Op 11/09/24 07:28 Procedure Start 11/09/24 07:47 Procedure Start Time: 07:47 Procedure Stop Time: 09:15 Select all DRAINS/GRAFTS/IMPLANTS that apply: Drains Drain details: SULAIMAN to bulb suction Estimated Blood Loss: 20 Specimen collected: Yes Description of specimen(s) removed: Gallbladder Description of surgery: After obtaining informed consent patient was brought back to the operating room. General anesthesia was induced. The abdomen was prepped and draped in usual sterile fashion. A small midline incision was made superior to the umbilicus and deepened to the level of fascia. The fascia was elevated and incised. Next the peritoneum was elevated and incised in the same fashion. Finger sweep was performed and the Fox trocar was placed into the abdomen. The balloon was inflated. The abdomen was inflated to 15 mmHg. Next a camera was introduced into the abdomen and the abdomen was inspected. Next under direct visualization three 5-mm ports were placed one subxiphoid and 2 subcostal. Next the gallbladder was elevated and retracted toward the right shoulder. The peritoneum was stripped from the gallbladder. The gallbladder was very inflamed and the fat from the intra-abdominal cavity was densely adherent to the gallbladder. The gallbladder perforated upon grasping and there was purulent material filling it. There was some spillage of purulent material and stones. This was suctioned up. The infundibulum was located and retracted laterally. Next the triangle of Calot was dissected and the cystic duct and cystic artery were identified. Cholangiograms were performed. The Martinez clamp was used to clamp across the infundibulum and the catheter needle was inserted into the gallbladder. Under fluoroscopy contrast was instilled into the gallbladder and the common duct, cystic duct as well as proximal hepatic ducts were identified. There was good filling of the duodenum. There were no filling defects noted in the common bile duct. The clamp was removed as well as the needle and the infundibulum was grasped once more. Three hemolock clips were placed across the cystic duct. The cystic duct was then divided leaving 2 clips on the stump. The cystic artery was clipped and divided in the same fashion. The hook cautery was then used to take the gallbladder off of the gallbladder bed. Hemostasis was obtained. Gallbladder fossa was irrigated and no active bleeding or bile leakage was noted. Next the camera was introduced in the subxiphoid port. An Endopouch bag was placed through the umbilical port and the gallbladder was placed into it. The gallbladder was then removed through the umbilical incision. The camera was then reinserted through the umbilical port. The gallbladder fossa was inspected once more and noted to be hemostatic with no leaking bile. The abdomen was suctioned dry. The 5 mm ports were removed under direct visualization. The umbilical port was then removed and the air was removed from the abdomen. Next using an 0 Vicryl suture the umbilical fascia was closed in a [id number] fashion. The umbilical port site was irrigated local anesthetic was administered to all the incisions. All the incisions were closed with interrupted subcuticular 4-0 Monocryl sutures followed by Steri-Strips and dressings. The patient was awoken and taken to PACU in stable condition. Surgical Findings: Wound class IV Complications Complications: No Admit VTE Documentation VTE Mechan Device Prophylaxis: SCD's
--- NOTE | 2024-11-09 09:23 | PCM.POST.ANE ---
Anesthesia: Postop Eval I Current Vital Signs Temperature: 97.5 F Pulse Rate: 75 Blood Pressure: 122/68 Respiratory Rate: 20 Pulse Ox: 97 Oxygen Delivery Method: Room Air Assessment Airway patent: Yes Spontaneous unlabored respirations: Yes Mental status: Awake and Calm nausea: No Vomiting: No Anesthesia Complication: No Fluid Hydration Crystalloid volume administer (ml): 1,400 Total IV fluid infused: 1,400 Progress Note Anesthesia document: Postop Eval 1 completed: Yes
[2024-11-09] MEDS: 0.9% Saline Lock 10 ML Syringe IV (11:42)
--- NOTE | 2024-11-09 16:14 | NURSING ---
Call received from andrew Serrano. This nurse provided update on current condition as requested.
--- NOTE | 2024-11-09 18:28 | PCM.PN.HOSP ---
Reason for Visit Chief Complaint: Abd pain and jaundince Subjective Subjective Patient underwent cholecystectomy today, his gallbladder was very friable and gangrenous, he remains on IV antibiotics at this time, I talked briefly with general surgery about his care. Objective Data Objective Data Vital Signs: Vital Signs Temp Pulse Resp BP Pulse Ox O2 Del Method O2 Flow Rate 97.9 F 66 12 137/72 H 96 Room Air 2 11/09/24 15:48 11/09/24 15:48 11/09/24 15:48 11/09/24 15:48 11/09/24 15:48 11/09/24 15:48 11/09/24 10:45 Oxygen Flow Rate (L/min) 2 Oxygen Delivery Method Room Air Weight: 97.5 kg Body Mass Index (BMI) 29.9 Intake & Output: Intake and Output for Last 24 Hours 11/07/24 11/08/24 11/09/24 23:59 23:59 23:59 Intake Total 1058.75 / 1358.75 501 / 801 810 / 810 Output Total 1900 / 2500 1050 / 1950 1865 / 1865 Balance -841.25 / -1141.25 -549 / -1149 -1055 / -1055 Lab / Micro Data 11/09/24 06:23 11/09/24 06:23 Labs: Laboratory Results - last 24 hr 11/09/24 06:23: WBC 8.4, RBC 4.49 L, Hgb 13.0, Hct 39.1 L, MCV 87.1, MCH 29.0, MCHC 33.2, RDW Std Deviation 45.8 H, RDW Coeff of Selene 14.4, Plt Count 356, MPV 8.7, Immature Gran % (Auto) 0.500, Neut % (Auto) 63.5, Lymph % (Auto) 22.3, Mck[place] % (Auto) 7.8, Eos % (Auto) 4.3, Baso % (Auto) 1.6 H, Absolute Neuts (auto) 5.3, Absolute Lymphs (auto) 1.86, Nucleated RBC % 0, Sodium 136, Potassium 4.2, Chloride 99, Carbon Dioxide 25.6, Anion Gap 11, BUN 13, Creatinine 1.05, Estim Creat Clear Calc 90.19, Est GFR (MDRD) Non-Af 82, BUN/Creatinine Ratio 12.6, Glucose 92, Calcium 8.7, Total Bilirubin 2.93 H, AST 67 H, ALT 130 H, Alkaline Phosphatase 323 H, Total Protein 6.3, Albumin 3.4 L, Globulin 2.9, Albumin/Globulin Ratio 1.2 Radiography Diagnostic Testing: Radiology Impression C-Arm Fluoroscopy 11/09/24 07:45 IMPRESSION: Intraoperative fluoroscopy was performed for ERCP. Numerous fluoroscopic images were also obtained. Also, cholelithiasis is seen. Reading Location: [place] [address] Cholangiogram 11/09/24 07:45 IMPRESSION: Intraoperative fluoroscopy was performed for ERCP. Numerous fluoroscopic images were also obtained. Also, cholelithiasis is seen. Reading Location: [place] [address] Physical Exam Narrative alert, oriented x3, no apparent distress and average body habitus General Appearance: cooperative, well kempt and well developed Orientation / Consciousness: awake, oriented to person, oriented to place and oriented to time HEENT normocephalic, head/scalp atraumatic and moist oral mucous membranes Eyes PERRL, EOMs intact bilaterally and conjunctivae normal Neck supple, no JVD, thyroid normal and no carotid bruits General: trachea midline Resp normal respiratory effort, no retractions, no use of accessory muscles and clear to auscultation bilaterally Auscultation: Negative for rales, rhonchi or wheezes Cardio regular rate, regular rhythm, S1 normal heart sound, S2 normal heart sound, no murmurs, no rub and no gallops GI normal to inspection, nondistended, normoactive bowel sounds, soft to palpation, non-tender and non-distended Extremity no clubbing, cyanosis or edema Skin Skin Narrative: Patient is jaundiced Neuro oriented x3, CN's II-XII intact bilaterally, moves all extremities, no focal motor deficits and no sensory deficits noted Sensorium / Orientation: awake and alert Speech: speech normal Psych affect normal Assessment & Plan Assessment/Plan (1) Choledocholithiasis: PLAN: Plan 1. Choledocholithiasis with jaundice-patient underwent an ERCP with removal of stones and stent placement, status postcholecystectomy postop day 0 #2 essential hypertension-patient will remain on losartan #3 chronic anxiety-patient is on Zoloft #4 Gangrenous cholecystitis-patient remains on IV antibiotics, status postcholecystectomy postop day 0 Total clinical time spent by myself addressing the patient's medical issues, reviewing all of his data, and collaborating with patient's care team: 35 minutes Charges/Coding Visit Charges Inpatient E&M: 71724 Subs Hosp L2
[2024-11-10 02:25] VITALS: BP 122/68; PULSE 61; RESP 16; TEMP 36.7; O2SAT 94
[2024-11-10] MEDS: Piperacil/Tazobactam 3.375 GM in 0.9% Normal Saline (50mL MB+) 50 ML IV (05:12)
[2024-11-10 06:09] VITALS: BP 119/73; PULSE 71; RESP 16; TEMP 36.8; O2SAT 93
[2024-11-10 08:04] VITALS: BP 125/80; PULSE 76; RESP 20; TEMP 36.8; O2SAT 95
[2024-11-10 08:07] VITALS: PULSE 80
--- NOTE | 2024-11-10 11:54 | DCINST_ITS ---
Discharge Instructions DC O2, CPAP, BIPAP needs Home O2 Discharge instructions: No Dressing / Incision Discharge Activity: May Not Drive (for 2-3 days or while taking narcotic pain medications.) and - (Do not drive, work heavy equipment or sign legal documents for 24 hours.) May shower in (days): 1 Lifting Restrictions: 20 lbs for 2 weeks Additional Activity Instructions:: Pain medication may cause nausea. You should typically eat light foods as you take your pain medications. Pain medication may also cause constipation. If this is a problem for you, please discuss with your doctor. Dressing / Incision Call your doctor if your incision/area has: Continuous Slow Oozing, Sudden Increased Bleeding, Increased Pain/ Swelling, Increased Redness and Foul Smelling Discharge Call your doctor if you observe: Fever of 101 or Higher Suture Line Care: Avoid Pulling/Pushing and Avoid Pinching/Bending Remove Dressing in: 2 days Additional Dressing/Incision Instructions:: Leave operative bandaids on for 2 days. When you remove dressing, leave Steri-Strips on until your follow-up appointment, or until the Steri-Strips fall off on their own. Alternate Tylenol and ibuprofen for pain, oxycodone for breakthrough pain Follow Up Care Please Follow Up With: Boston Williamson MD When: Please call to schedule 2 week follow up appointment. [phone] Test Results: Test results from this visit will be discussed in further detail at your follow- up appointment, if applicable. Discharge Plan Admission Admit Date/Time: 11/05/24 16:58 Attending Provider: Micky Meadows Primary Care Provider: Beryl Lara Consulting Providers: Boston Williamson; Kate Stark Discharge Orders/Prescriptions Prescriptions: New oxycodone 5 mg Tablet 5 mg PO Q4H PRN PRN (Reason: Pain Score 4-10) 5 Days Qty: 10 0RF amoxicillin-pot clavulanate [Augmentin] 500-125 mg tablet 1 tab PO BID 5 Days Qty: 10 0RF Continued pantoprazole 40 mg tablet,delayed release (DR/EC) 40 mg PO BID sertraline 100 mg tablet 100 mg PO DAILY losartan 50 mg tablet 50 mg PO DAILY cetirizine [Allergy Relief (cetirizine)] 10 mg tablet 10 mg PO DAILY Referrals / Follow Up: Frakowski,Beryl, DO [Primary Care Provider] - Disposition Disposition (needs filled in before D/C Order can be placed): Home, Self Care
--- NOTE | 2024-11-10 12:07 | DCINST_ITS ---
Discharge Instructions DC O2, CPAP, BIPAP needs Home O2 Discharge instructions: No Dressing / Incision Discharge Activity: Return to Normal Activity May shower in (days): 1 Weight Bearing Status: Full weight bearing Additional Activity Instructions:: Pain medication may cause nausea. You should typically eat light foods as you take your pain medications. Pain medication may also cause constipation. If this is a problem for you, please discuss with your doctor. Dressing / Incision Call your doctor if your incision/area has: Continuous Slow Oozing, Sudden Increased Bleeding, Increased Pain/ Swelling, Increased Redness and Foul Smelling Discharge Call your doctor if you observe: Fever of 101 or Higher Suture Line Care: Avoid Pulling/Pushing and Avoid Pinching/Bending Additional Dressing/Incision Instructions:: Leave operative bandaids on for 2 days. When you remove dressing, leave Steri-Strips on until your follow-up appointment, or until the Steri-Strips fall off on their own. Alternate Tylenol and ibuprofen for pain, oxycodone for breakthrough pain Follow Up Care Please Follow Up With: Boston Williamson MD Test Results: Test results from this visit will be discussed in further detail at your follow- up appointment, if applicable. Discharge Plan Admission Admit Date/Time: 11/05/24 16:58 Primary Reason for Your Visit: Cholecystitis, choledocholithiasis Attending Provider: Micky Meadows Primary Care Provider: Beryl Lara Consulting Providers: Boston Williamson; Kate Stark Discharge Orders/Prescriptions Prescriptions: New oxycodone 5 mg Tablet 5 mg PO Q4H PRN PRN (Reason: Pain Score 4-10) 5 Days Qty: 10 0RF amoxicillin-pot clavulanate [Augmentin] 500-125 mg tablet 1 tab PO BID 5 Days Qty: 10 0RF Continued pantoprazole 40 mg tablet,delayed release (DR/EC) 40 mg PO BID sertraline 100 mg tablet 100 mg PO DAILY losartan 50 mg tablet 50 mg PO DAILY cetirizine [Allergy Relief (cetirizine)] 10 mg tablet 10 mg PO DAILY Referrals / Follow Up: Beryl Lara DO [Primary Care Provider] - Boston Williamson MD [Med Staff - Active Staff] - See Referral Note (Call his office to make an appointment for follow-up) Disposition Disposition (needs filled in before D/C Order can be placed): Home, Self Care
--- NOTE | 2024-11-10 12:13 | DS.PCM_ITS ---
Providers Date of Admission: 11/05/24 Date of Discharge: 11/10/24 Primary Care Physician: Dr. Beryl Lara, Consultations 11/05/24 17:33 Consult: Gastroenterology Routine Consulting Provider: [facility] Reason for Consult: jaundince, dilated CBD EMERGENT Consult: No Notified: Yes Date Notified: 11/06/24 Time Notified: 06:02 Method of Notification: Text Consult: General Surgery Routine Consulting Provider: Boston Williamson Reason for Consult: jaundice, gallbladder sludge, dilated CBD EMERGENT Consult: No Notified: Yes Date Notified: 11/05/24 Time Notified: 17:35 Method of Notification: Verbal Comments:: Dr. Kanwal arita/ Dr. Williamson Reason For Visit: JAUNDICE, CONCERN FOR CHOLEDOCHOLITHIASIS Diagnosis Discharge Diagnosis (1) Choledocholithiasis: Status: Acute Code(s): K80.50 - Calculus of bile duct without cholangitis or cholecystitis without obstruction Plan 1. Choledocholithiasis with jaundice-patient underwent an ERCP with removal of stones and stent placement #2 essential hypertension-patient will remain on losartan #3 chronic anxiety-patient is on Zoloft #4 cholecystitis-patient remains on IV antibiotics, status postcholecystectomy postop day 0 Total clinical time spent by myself addressing the patient's medical issues, reviewing all of his data, and collaborating with patient's care team: 35 minutes Medications at Discharge Home Medications cetirizine 10 mg tablet (Allergy Relief (cetirizine)) 10 mg PO DAILY allergies 11/05/24 losartan 50 mg tablet 50 mg PO DAILY blood pressure 11/05/24 pantoprazole 40 mg tablet,delayed release 40 mg PO BID gerd 11/05/24 sertraline 100 mg tablet 100 mg PO DAILY anxiety 11/05/24 amoxicillin 500 mg-potassium clavulanate 125 mg tablet (Augmentin) 1 tab PO BID 5 days #10 tabs 11/10/24 oxycodone 5 mg tablet 5 mg PO Q4H PRN PRN Pain Score 4-10 5 days #10 tabs 11/10/24 Hospital Course Operations cholecystecomy and ERCP Procedures - Summary of Care Provided Minutes Spent on Discharge: 31 Hospital Course: This 58-year-old white male was directly admitted to [facility] from an outside emergency room due to elevated bilirubin and jaundice. Patient was admitted to [place] [address], labs from the outside emergency room showed a bilirubin of 14 along with elevated liver enzymes. Patient was started on IV fluids, he was seen in consultation with general surgery and GI. Patient underwent an ERCP with removal of stones in the common bile duct, a few days later patient underwent a laparoscopic cholecystectomy without any complications. Patient was kept on IV antibiotics during his hospital stay and his liver enzymes improved. On 11/10/2024, patient was seen and examined: On examination he appeared in good health and spirits. Vital signs as documented. Skin warm and dry and without overt rashes. Neck without JVD, neck was supple, trachea midline, thyroid was normal. Lungs clear bilaterally, normal air movement was noted. Heart exam notable for regular rhythm, normal sounds and absence of murmurs, rubs or gallops. Abdomen unremarkable and without evidence of organomegaly, masses, or abdominal aortic enlargement. Bowel sounds are present, abdomen is not distended. Extremities nonedematous, no cyanosis was noted, no clubbing was noted. Neuro: Cranial nerves II through XII are grossly intact, no focal motor deficits were noted, sensation to light touch and pinprick intact, motor exam 5/5 throughout. Psych: Patient is alert and oriented x3, he does not appear anxious or depressed, he does not appear agitated. Patient appears to be stable for discharge home on 11/10/2024 Weight / BMI Weight Weight: 97.5 kg Body Mass Index (BMI) 29.9 ABG / Lab / Microbiology Data 11/09/24 06:23 11/09/24 06:23 D/C Instructions May shower in (days): 1 Weight Bearing Status: Full weight bearing Additional Activity Instructions: Pain medication may cause nausea. You should typically eat light foods as you take your pain medications. Pain medication may also cause constipation. If this is a problem for you, please discuss with your doctor. Call your doctor if your incision/area has: Continuous Slow Oozing, Sudden Increased Bleeding, Increased Pain/ Swelling, Increased Redness and Foul Smelling Discharge Call your doctor if you observe: Fever of 101 or Higher Suture Line Care: Avoid Pulling/Pushing and Avoid Pinching/Bending Additional Dressing/Incision Instructions: Leave operative bandaids on for 2 days. When you remove dressing, leave Steri-Strips on until your follow-up appointment, or until the Steri-Strips fall off on their own. Alternate Tylenol and ibuprofen for pain, oxycodone for breakthrough pain DC O2, CPAP, BIPAP Needs Home O2 Discharge instructions: No Please Follow Up With: Boston Williamson MD When: Please call to schedule 2 week follow up appointment. [phone] Meaningful Use Info Meaningful Use Meaningful Use Diagnoses (Choose all that apply): None applicable Discharge Plan Admission Admit Date/Time: 11/05/24 16:58 Primary Reason for Your Visit: Cholecystitis, choledocholithiasis Attending Provider: Micky Meadows Primary Care Provider: Beryl Lara Consulting Providers: Boston Williasmon; Kate Stark Discharge Orders/Prescriptions Prescriptions: New oxycodone 5 mg Tablet 5 mg PO Q4H PRN PRN (Reason: Pain Score 4-10) 5 Days Qty: 10 0RF amoxicillin-pot clavulanate [Augmentin] 500-125 mg tablet 1 tab PO BID 5 Days Qty: 10 0RF Continued pantoprazole 40 mg tablet,delayed release (DR/EC) 40 mg PO BID sertraline 100 mg tablet 100 mg PO DAILY losartan 50 mg tablet 50 mg PO DAILY cetirizine [Allergy Relief (cetirizine)] 10 mg tablet 10 mg PO DAILY Referrals / Follow Up: Boston Williamson MD [Med Staff - Active Staff] - See Referral Note (Call his office to make an appointment for follow-up) Beryl Lara DO [Primary Care Provider] - Disposition Disposition (needs filled in before D/C Order can be placed): Home, Self Care Charges/Coding Visit Charges Inpatient E&M: 24583 Disch Hosp >30min
[2024-11-10 12:52] VITALS: BP 111/70; PULSE 74; RESP 18; TEMP 36.8; O2SAT 97
--- NOTE | 2024-11-10 16:20 | ANES.CONFIRM ---
Anesthesia: Confirm Documents Multiple Procedures on Account (2) Confirmed Documents: Yes
== END 2024-11-10 13:28 | disposition home or self-care (01) | DRG 419 ==
PROVIDERS: Internal Medicine Gastroenterology; Physician Assistant; Surgery; Admitting Provider Internal Medicine; PCP Family Medicine; Visit Provider Internal Medicine
PROC: 0FC98ZZ Extirpation of Matter from Common Bile Duct, Via Natural or Artificial Opening Endoscopic (ICD-10-PCS; CPT 43260; principal; 2024-11-06 14:40)
PROC: 0FT44ZZ Resection of Gallbladder, Percutaneous Endoscopic Approach (ICD-10-PCS; CPT 47610; principal; 2024-11-09 07:10)
DX: K80.67 Calculus of gallbladder and bile duct with acute and chronic cholecystitis with obstruction (principal); K82.A1 Gangrene of gallbladder in cholecystitis; I10 Essential (primary) hypertension; F41.9 Anxiety disorder, unspecified; K21.9 Gastro-esophageal reflux disease without esophagitis; Z79.899 Other long term (current) drug therapy; Z87.891 Personal history of nicotine dependence
CPT/HCPCS: 36415; 74177; 74300; 74330; 76000; 80053; 85025; 88304; 93005; 97802; 99406; C2625; Q9967; A4216; J2405

== ENCOUNTER 2025-01-03 09:47 | Day surgery (SDC) | payer MEDICARE, MEDICAID, SELFPAY ==
[2025-01-03] VITALS (8 sets, daily range): BP systolic 108–117; BP diastolic 73–82; PULSE 55–77; RESP 14–18; TEMP 36.1–36.4; O2SAT 94–99; BMI 30.4
[2025-01-03] MEDS: Lactated Ringers 1,000 ML 15 ML IV (10:39)
== END 2025-01-03 13:45 | disposition home or self-care (01) ==
LOC: EN 09:50 → AC 09:52
PROVIDERS: PCP Nurse Practitioner Family; Referring Provider Nurse Practitioner Family; Visit Provider Internal Medicine Gastroenterology
PROC: (CPT 43260; principal; 2025-01-03 10:55)
DX: Z46.59 Encounter for fitting and adjustment of other gastrointestinal appliance and device (principal); K80.51 Calculus of bile duct without cholangitis or cholecystitis with obstruction; I10 Essential (primary) hypertension; Z90.49 Acquired absence of other specified parts of digestive tract; K21.9 Gastro-esophageal reflux disease without esophagitis; F17.220 Nicotine dependence, chewing tobacco, uncomplicated; Z79.899 Other long term (current) drug therapy
CPT/HCPCS: 43262; 43275; 43264; 00732; 74330; 76000; 88108; 88305; 88313; 93005; J2405

== ENCOUNTER 2025-03-15 10:57 | Inpatient (IN) | payer MEDICARE, SELFPAY ==
[2025-03-15 10:58] VITALS: BP 150/94; PULSE 81; RESP 16; TEMP 36.6; O2SAT 97
[2025-03-15 11:06] VITALS: BMI 30.2
--- NOTE | 2025-03-15 11:14 | EDS_ITS ---
HPI HPI - GI History of Present Illness Chief Complaint: Other, Pain/Inj Narrative Narrative: Patient is a 59-year-old male presenting to the emergency department for periumbilical abdominal pain that started yesterday afternoon. States been constant since. He has a past medical history of GERD, hypertension, DVT, peripheral arterial disease. Patient has a past surgical history of a cholecystectomy, appendectomy and inguinal hernia repair. Patient states that he has had nausea with no vomiting. Denies fever or chills. Denies dysuria or hematuria. Denies any scrotal swelling or pain. States his last bowel movement was yesterday morning and was normal has not had 1 since. PFSH PFS Medical History Wears glasses DVT (deep venous thrombosis) Gastric reflux Chewing tobacco dependence Former smoker Sleep apnea Shortness of breath on exertion Depression Anxiety HTN (hypertension) Appendicitis Home Medications ?Medication ?Instructions ?Recorded ?Last Taken ?Type cetirizine 10 mg tablet (Allergy 10 mg PO DAILY allerg ies 11/05/24 01/02/25 History Relief (cetirizine)) losartan 50 mg tablet 50 mg PO DAILY blood pressur e 11/05/24 01/03/25 History pantoprazole 40 mg tablet,delayed 40 mg PO BID gerd 01/03/25 History release sertraline 100 mg tablet 100 mg PO DAILY anxiety 10/2001/02/25 History aspirin 81 mg tablet 81 mg PO QDAY 11/28/2412/24 History Allergy/AdvReac Type Severity Reaction Status Date / Time azithromycin (From Zithromax) Allergy Severe Rash Verified 03/15/25 11:00 adhesive Allergy Intermediate Rash Verified 03/15/25 11:00 Surgical History Hx of appendectomy History of ERCP Hx of tonsillectomy S/P cholecystectomy H/O sinus surgery H/O hernia repair Social History (Updated 03/15/25 @ 13:[address] Tony Holden DO) Smoking Status: Current every day smoker tobacco type: smokeless tobacco alcohol intake: former substance use type: does not use what type of physical activity do you participate in: none ROS ROS ED ROS Narrative see HPI EXAM Physical Exam Narrative Exam Narrative: Vital signs: Reviewed General: Alert and orientedx3. No acute distress. Nontoxic. HEENT: Head is normocephalic and atraumatic, sinuses nontender, pupils equal round and reactive. Nares are patent. Oropharynx and throat exams normal. Neck: Supple without lymphadenopathy nontender Cardiovascular: Regular rate and rhythm, no murmurs. No rubs or gallops. Normal S1 and S2 Respiratory: Clear to auscultation bilaterally. No wheezes, rales, rhonchi Abdominal: Soft and tender to palpation diffusely, mainly around the umbilicus. There is a small vertical surgical scar above the umbilicus. Small umbilical hernia that is reducible. There are no overlying skin changes. Normal bowel sounds. No guarding or rebound. Extremities: No tenderness. No bruising. Normal range of motion. Normal sensation. Skin: No rash or redness. The rest of the physical exam is unremarkable Const Vital Signs: 03/15/25 10:58 Temperature 98 F Temperature Source Temporal Pulse Rate 81 Respiratory Rate 16 Blood Pressure 150/94 H Blood Pressure Mean 112 Pulse Ox 97 Oxygen Delivery Method Room Air MDM MDM MDM Narrative Medical decision making narrative: Patient is a 59-year-old male presenting to the emergency department for abdominal pain that started yesterday with nausea. Patient was seen and examined. Vitals are stable. Patient resting in bed comfortably in no acute distress. Differential includes but is not limited to: Strangulated versus incarcerated hernia, colitis, diverticulitis, UTI, SBO Patient given morphine and Zofran for symptomatic control. Labs including lactic and CT imaging ordered. CBC with no leukocytosis and a normal hemog lobin. CMP with no significant abnormalities. Lipase within normal limits. Lactate within normal limits. CT shows acute pancreatitis. Posterior and inferior to the pancreatic body, there is a fluid attenuated lesion measuring up to 2.6 cm previously this was seen of the soft tissue nodule/lymph node measuring up to 1.7 cm. This could represent a necrotic lymph node. Further evaluation with MRI of the abdomen with contrast is recommended. Dilated intrahepatic and extrahepatic biliary ducts. Bilateral fat containing inguinal hernia, worse on the left. Fat containing umbilical hernia is noted. Patient was reevaluated, still in significant pain, given Dilaudid. Updated on the findings. Denies any significant alcohol use. Agreeable with being admitted for GI consult and pain control. Required additional analgesic here in the ER. Given Dr. 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 I do not think the patient requires emergent ERCP for the dilated ducts seen on imaging, will admit for pain control secondary to the pancreatitis and GI can be consulted while admitted for further recommendations. Admitted to Dr. Holden for further management. Clinical impression: Acute pancreatitis History & Record Review Discussion w/independent historian: Patient and Family Additional record(s) reviewed:: Prior inpatient record, Prior ED visit and Prior labs Lab Data Attestation: I reviewed the patient's lab results. Labs: Laboratory Results - last 24 hr 03/15/25 03/15/25 11:20 12:00 WBC 7.9 RBC 5.43 Hgb 15.8 Hct 45.9 MCV 84.5 MCH 29.1 MCHC 34.4 RDW Std Deviation 41.1 RDW Coeff of Selene 13.2 Plt Count 246 MPV 9.3 Immature Gran % (Auto) 0.300 Neut % (Auto) 70.5 H Lymph % (Auto) 18.8 L [place] % (Auto) 8.1 Eos % (Auto) 1.4 Baso % (Auto) 0.9 Absolute Neuts (auto) 5.6 Absolute Lymphs (auto) 1.49 Nucleated RBC % 0 Sodium 138 Potassium 4.0 Chloride 103 Carbon Dioxide 24.2 Anion Gap 11 BUN 15 Creatinine 1.00 Estim Creat Clear Calc 93.98 Est GFR (MDRD) Non-Af 86 BUN/Creatinine Ratio 15.0 Glucose 130 H Lactic Acid 1.6 Calcium 9.4 Total Bilirubin 0.70 AST 23 ALT 25 Alkaline Phosphatase 105 Total Protein 7.0 Albumin 4.3 Globulin 2.7 Albumin/Globulin Ratio 1.6 Lipase 26 Urine Color Yellow Urine Clarity Clear Urine pH 7.0 Ur Specific [place] 1.010 Urine Protein 15 H Urine Glucose (UA) Normal Urine Ketones Negative Urine Occult Blood Negative Urine Nitrite Negative Urine Bilirubin Negative Urine Urobilinogen Normal Ur Leukocyte Esterase Negative Urine RBC 0 SEEN Urine WBC 0 SEEN Ur Squamous Epith Cells 0 SEEN Urine Bacteria 0 SEEN Urine Mucus 0 SEEN Radiography Diagnostic Testing: Clinical Impression(s) from Imaging Studies Abdomen/Pelvis CT 03/15/25 11:44 IMPRESSION: Acute pancreatitis. Posterior and inferior to the pancreatic body, there is a fluid attenuated lesion measuring up to 2.6 cm previously this was seen of the soft tissue nodule/lymph node measuring up to 1.7 cm. This could represent a necrotic lymph node. Further evaluation with MRI of the abdomen with contrast is recommended. Dilated intrahepatic and extrahepatic biliary ducts. Bilateral fat containing inguinal hernia, worse on the left. Fat containing umbilical hernia is noted. Reading Location: [facility] Discharge Plan Disposition Disposition: Acute Care Hospital [facility] Discharge Date/Time: 03/15/25 14:23
--- NOTE | 2025-03-15 11:44 | CT_ITS ---
PROCEDURE: ABDOMEN/PELVIS W IV CONT ONLY 03/15/2025 REASON FOR EXAM: MIDDLE ABDOMINAL PAIN TECHNIQUE: Procedure Code: [id number] Modality: CT Procedure: ABDOMEN/PELVIS W IV CONT ONLY Coronal and Sagittal reconstruction series were provided. CONTRAST: Isovue 370 VOLUME: 100 mL One or more dose reduction techniques were used (e.g., Automated exposure control, adjustment of the mA and/or kV according to patient size, use of iterative reconstruction technique. RADIATION DOSE SUMMARY: CTDlvol: 38.03 mGy DLP: 1129.12 mGycm COMPARISON: CT abdomen pelvis dated 10/13/2024 FINDINGS: Lung bases: Clear. Coronary artery calcification is noted. Liver: Similar appearance of intrahepatic biliary duct dilatation. Multiple hepatic cysts are again noted, stable. Gallbladder: Absent Spleen: Normal size. Pancreas: Peripancreatic fat stranding is noted along the pancreatic head. Posterior and inferior to the pancreatic body, there is a fluid attenuated lesion measuring up to 2.6 cm previously this was seen of the soft tissue nodule/lymph node measuring up to 1.7 cm. Adrenals: Unremarkable. Kidneys: Normal renal sizes. No hydronephrosis. Bladder: Unremarkable. Reproductive Organs: Mild prostatic calcifications. Bowel: No small bowel obstruction. Colonic diverticulosis without evidence of diverticulitis Appendix: The appendix is not identified. There is no inflammatory process identified in the right lower quadrant to suggest appendicitis. Vasculature: Mild diffuse atherosclerotic calcifications are noted. Peritoneum / Retroperitoneum: No free fluid or free air. Bones: Degenerative changes of the spine. Abdominal wall: Bilateral fat containing inguinal hernia, worse on the left. Fat containing umbilical hernia is noted. CT/Abdomen/Pelvis W IV Cont ONLY IMPRESSION: Acute pancreatitis. Posterior and inferior to the pancreatic body, there is a fluid attenuated lesi on measuring up to 2.6 cm previously this was seen of the soft tissue nodule/lymph node measuring up to 1.7 cm. This could repres ent a necrotic lymph node. Further evaluation with MRI of the abdomen with contrast is recommended. Dilated intrahepatic and extrahepatic biliary ducts. Bilateral fat containing inguinal hernia, worse on the left. Fat containing um bilical hernia is noted. Reading Location: [facility]
[2025-03-15 11:46] LABS: Hematocrit 45.9 % (40-54); Hemoglobin 15.8 g/dL (13.0-16.5); Immature Granulocytes Count 0.020 X10^3/uL (0.0-0.0); Mean Corp Hgb Conc 34.4 g/dL (32-36); Mean Corpuscular Volume 84.5 fL (80-94); Mean Platelet Vol. 9.3 fl (6.2-12.0); NRBC Flagged by Analyzer 0 % (0-5); Platelet Count 246 K/mm3 (150-450); RBC Distribution Width CV 13.2 % (11.6-14.6); RBC Distribution Width SD 41.1 fl (35.1-43.9); Red Blood Count 5.43 M/mm3 (4.6-6.2); White Blood Count 7.9 K/mm3 (4.4-11.0)
[2025-03-15 11:52] LABS: AST(SGOT) 23 U/L (<=37); Alanine Aminotransfer ALT/SGPT 25 U/L (<=46); Albumin, Serum 4.3 g/dL (3.4-4.8); Alkaline Phosphatase 105 U/L (40-129); Anion Gap 11 (7-18); BUN 15 mg/dL (4-19); BUN/Creat Ratio 15.0 RATIO (10-20); Calcium,Total 9.4 mg/dL (7.6-11.0); Carbon Dioxide 24.2 mmol/L (20.0-29.0); Chloride 103 mmol/L (96-106); Estimated Creatinine Clearance 93.98 ml/min (50-250); Globulin 2.7 g/dL (2.2-4.2); Glucose 130 mg/dL (70-99); Lipase 26 U/L (13-75); Potassium 4.0 mmol/L (3.5-5.1)
--- OUTSIDE RECORDS SUMMARY | 2025-03-15 11:58 | XMS RPT_ITS | CCD ---
Author Organization [facility] CliniSytn Care Team Providers Care Director Of Residence Life Name Role Phone BERYL HARRISON DO Admitting Unavailable BERYL HARRISON DO Attending Unavailable BERYL HARRISON DO Primary Care Unavailable Marco EMERSON, Dr. Cordoba Primary Care Provider Tatiana AGUSTIN, Dr. Love Admit Provider Tatiana AGUSTIN, Dr. Love Attending Provider Tatiana AGUSTIN, Dr. Love Other Provider Teri AGUSTIN, Dr. Mead Other Provider Dr. Micky Meadows DO Attending Provider Geoffrey AGUSTIN, Dr. Riley Attending Provider Tatiana AGUSTIN, Dr. Love Referring Provider Teri AGUSTIN, Dr. Mead Attending Provider [phone] Dori EMERSON, Dr. Weeks Other Provider Dr. Tim Murray DO Attending Provider Evette Ochoa PA-C Attending Provider TRUPTI PAINTER CNP Referring Unavailable BENJA MCGUIRE DO Attending Unavailable BENJA MCGUIRE DO Admitting Unavailable BENJA MCGUIRE DO Primary Care Unavailable TRUPTI PAINTER CNP Consulting Unavailable PROVIDER, UNKNOWN Consulting Unavailable PROVIDER, UNKNOWN Consulting Unavailable TRUPTI PAINTER CNP Admitting Unavailable TRUPTI PAINTER CNP Primary Care Unavailable TRUPTI PAINTER CNP Consulting Unavailable TRUPTI PAINTER CNP Attending Unavailable PROVIDER, UNKNOWN Consulting Unavailable PROVIDER, UNKNOWN Consulting Unavailable TRUPTI PAINTER CNP Attending Unavailable TRUPTI PAINTER CNP Admitting Unavailable TRUPTI PAINTER CNP Primary Care Unavailable TRUPTI PAINTER CNP Consulting Unavailable PROVIDER, UNKNOWN Consulting Unavailable PROVIDER, UNKNOWN Consulting Unavailable TRUPTI PAINTER CNP Referring Unavailable TRUPTI PAINTER CNP Consulting Unavailable TAYLOR, YAMIL C Admitting Unavailable TAYLOR, YAMIL C Primary Care Unavailable TAYLOR, YAMIL C Attending Unavailable PROVIDER, UNKNOWN Consulting Unavailable PROVIDER, UNKNOWN Consulting Unavailable Marco EMERSON, Dr. Cordoba Referring Provider Dori EMERSON, Dr. Weeks Referring Provider Eleanor Garcia Attending Provider Marco EMERSON, Dr. Cordoba Primary Care Physician Tatiana AGUSTIN, Dr. Love Admitting Physician Tatiana AGUSTIN, Dr. Love Attending Physician Tatiana AGUSTIN, Dr. Love Nurse Practitioner Teri AGUSTIN, Dr. Mead Nurse Practitioner Dori EMERSON, Dr. Weeks Attending Physician Geoffrey AGUSTIN, Dr. Riley Attending Physician Teri AGUSTIN, Dr. Mead Attending Physician Dori EMERSON, Dr. Weeks Nurse Practitioner Dr. Tim Murray DO Attending Physician Evette Ochoa PA-C Attending Physician Eleanor Garcia Attending Physician Car MANAGER TRAFFIC-CTrupti Primary Care Physician Car RANGEL-CTrupti Referring Provider Dr. Tim Murray DO Referring Provider Boston Williamson Consulting Unavailable Beryl Harrison Primary Care Unavailable Kate Stark Admitting Unavailable Micky Meadows Attending Unavailable Kate Stark Consulting Unavailable Beryl Harrison Primary Care Unavailable Tim Murray Attending Unavailable Kate Stark Admitting Unavailable Micky Meadows Referring Unavailable Boston Williamson Consulting Unavailable Kate Stark Consulting Unavailable Micky Meadows Consulting Unavailable Micky Meadows Attending Unavailable Boston Williamson Attending Unavailable Osvaldo Hale Attending Unavailable Marco, Beryl Primary Care Unavailable Kate Stark Referring Unavailable Evette Marie Attending Unavailable Cra MANAGER TRAFFIC, Trupti Primary Care Unavailable Car MANAGER TRAFFIC, Trupti Referring Unavailable FriendTim Consulting Unavailable Friend, Tim Attending Unavailable Marco, Beryl Referring Unavailable Frakowski, Beryl Primary Care Unavailable Evette Marie Attending Unavailable Anjaliwsbrian, Beryl Primary Care Unavailable Anjaliwsbrian, Beryl Referring Unavailable Eleanor Hughes Attending Unavailable Boston Williamson Consulting Unavailable Anjaliwski, Beryl Primary Care Unavailable Kate Stark Attending Unavailable Kate Stark Admitting Unavailable Kate Stark Consulting Unavailable Car MANAGER TRAFFIC, Trupti Primary Care Unavailable Car MANAGER TRAFFIC, Trupti Referring Unavailable Friend, Tim Attending Unavailable Allergies Allergy Classification Reported Allergen(s) Allergy Type Date of Onset Reaction(s) Facility (4 sources) Azithromycin Drug Allergy 5 [facility] (4 sources) Adhesive agent; Translations: [ADHESIVE] Propensity to adverse reactions (disorder) [address] [facility] Repository Comment on above: Steri-strips (1 source) Azithromycin Drug Allergy [address] [place] [address] Repository Medications Current Medications Medication Drug Class(es) Dates Sig (Normalized) Sig (Original) aspirin 81 mg oral tablet (2 sources) Platelet Aggregation Inhibitor, Nonsteroidal Anti-inflammatory Drug Start: 11-28-2024 take 1 tablet by mouth once daily cetirizine hydrochloride 10 mg oral tablet (4 sources) Histamine-1 Receptor Antagonist Start: 11-05-2024 take 1 tablet by mouth once daily losartan potassium 50 mg oral tablet (4 sources) Angiotensin 2 Receptor Venu Start: 11-05-2024 take 1 tablet by mouth once daily pantoprazole 40 mg delayed release oral tablet (4 sources) Proton Pump Inhibitor Start: 11-05-2024 take 1 tablet by mouth twice daily sertraline 100 mg oral tablet (4 sources) Serotonin Reuptake Inhibitor Start: 11-05-2024 take 1 tablet by mouth once daily Completed/Discontinued Medications Medication Drug Class(es) Dates Sig (Normalized) Sig (Original) amoxicillin 500 mg / clavulanate 125 mg oral tablet (4 sources) Penicillin-class Antibacterial Start: 11-10-2024 End: 11-23-2024 Amoxicillin-Pot Clavulanate (Augmentin) 500-125 mg tablet Discontinued 1 {tbl} PO TWICE A DAY 10 5 0 November 10, 2024 12:00am November 23, 2024 1:06pm Multivitamin With Minerals (Vitamin And Mineral) Capsule (4 sources) Start: 09-13-2020 End: 11-05-2024 Multivitamin With Minerals (Vitamin And Mineral) Capsule Discontinued 1 NMA PO DAILY September 13, 2020 12:00am November 05, 2024 4:44pm oxyCODONE hydrochloride 5 mg oral tablet (4 sources) Opioid Agonist Start: 11-10-2024 End: 11-23-2024 take 1 tablet by mouth every four hours as needed for pain Oxycodone 5 mg Tablet Discontinued 5 mg PO EVERY 4 HOURS NEEDED as needed for Pain Score 4-10 10 5 0 November 10, 2024 November 23, 2024 1:06pm Common bile duct calculus Calculus of bile duct without cholangitis or cholecystitis without obstruction Problems Problem Classification Problem Date Documented Date Episodic/Chronic Abdominal pain (4 sources) Right upper quadrant pain; Translations: [Left upper quadrant pain] Onset: Episodic Allergic reactions (1 source) Allergy status to other antibiotic agents status; Translations: [Allergy status to other antibiotic agents] Onset: Episodic Anxiety disorders (1 source) Anxiety disorder, unspecified; Translations: [Anxiety disorder, unspecified] Onset: Chronic Biliary tract disease (10 sources) Common bile duct calculus; Translations: [Calculus of bile duct without cholangitis or cholecystitis without obstruction] Onset: 11-05-2024 Episodic Esophageal disorders (1 source) Gastro-esophageal reflux disease without esophagitis; Translations: [Gastro-esophageal reflux disease without esophagitis] Onset: Chronic Essential hypertension (1 source) Essential (primary) hypertension; Translations: [Essential (primary) hypertension] Onset: Chronic Other aftercare (1 source) 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; Translations: [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] Onset: Episodic Other diseases of veins and lymphatics (4 sources) Venous insufficiency of leg; Translations: [Venous insufficiency (chronic) (peripheral)] 09-27-2020 Episodic Other diseases of veins and lymphatics (4 sources) Disorder of vein of lower extremity; Translations: [Venous insufficiency (chronic) (peripheral)] 09-27-2020 Episodic Other gastrointestinal disorders (1 source) Irritable bowel syndrome without diarrhea; Translations: [Irritable bowel syndrome, unspecified] Onset: Chronic Other gastrointestinal disorders (1 source) Encounter for fitting and adjustment of other gastrointestinal appliance and device; Translations: [Encounter for fitting and adjustment of other gastrointestinal appliance and device] Onset: Episodic Other liver diseases (8 sources) Jaundice; Translations: [Unspecified jaundice] 11-05-2024 Episodic Other liver diseases (1 source) Unspecified jaundice; Translations: [Unspecified jaundice] Onset: Episodic Peripheral and visceral atherosclerosis (4 sources) Peripheral vascular disease, unspecified; Translations: [Peripheral arterial disease] 09-27-2020 Chronic Residual codes; unclassified (4 sources) Past history of procedure; Translations: [Other specified postprocedural states] Episodic Residual codes; unclassified (2 sources) Other specified postprocedural states; Translations: [Other specified postprocedural states] Onset: Episodic Residual codes; unclassified (1 source) Acquired absence of other specified parts of digestive tract; Translations: [Acquired absence of other specified parts of digestive tract] Onset: Episodic Unclassified (4 sources) Call his office to make an appointment for follow-up Unclassified (2 sources) Status post cholecystectomy Unclassified (2 sources) History of endoscopic retrograde cholangiopancreatography Unclassified (3 sources) Z90.49 - Acquired absence of other specified parts of digestive tract,Z98.890 - Other specified postprocedural states Results Test Name Value Interpretation Reference Range Facility Non-gynecologic cytology rep ortOrdered By: Jennifer Szymanski on 01-11-2025 Study report [facility] 12 Lead EKGon 01-03-2025 12 Lead EKG [facility] [address] [place] [address] 12 Lead EKG 01/03/25 1012 MR#: [id number] Acct: [id number] Name: MICHAEL MEJIA Rep #: [id number] : 1965 59 From: Osvaldo Hale MD Attending Dr: Tim Murray DO Status: DEP VT C Ordering Dr: Manas Cantrell MD Date: 01/03/25 Location: EN Sex: M C Admitted: Test Reason : PRE-OP Blood Pressure : */* mmHG Vent. Rate : 60 BPM Atrial Rate : 60 BPM P-R Int : 164 ms QRS Dur : 100 ms QT Int : 426 ms P-R-T Axes : 56 -58 28 degrees QTcB Int : 426 ms Normal sinus rhythm Left axis deviation Abnormal ECG When compared with ECG of 06-Nov-2024 06:10, No significant change was found Confirmed by GEOFFREY AGUSTIN, OSVALDO ([id number]), makeup editor EVETTE MORRIS ([id number]) on 01/04/2025 10:08:22 AM Referred By: Trupti Painter Confirmed By: OSVALDO HALE MD 01/04/25 1008 Date Osvaldo Hale MD CC: MANAGER TRAFFIC-C Trupti Painter; Dr. Manas Cantrell MD; Tim Murray DO Signed Normal [facility] ERCP Biliary/Pancreason 12-20 ERCP Biliary/Pancreas [facility] Imaging Services [address] [place], [place] [address] ERCP Biliary/Pancreas MR#: [id number] Acct: [id number] Name: MICHAEL MEJIA Rep #: [id number] : 1965 M 59 From: Edwin tucker MD PCP: SANDRINE Walker Status: [facility] Study: ERCP Biliary/Pancreas Date of Exam: 01/03/25 Exam# [id number] Ordering Dr: Tim Murray DO PROCEDURE: ERCP BILIARY/PANCREAS 01/03/2025 REASON FOR EXAM: ERCP, STENT REMOVAL TECHNIQUE: Procedure Code: RADERCP Modality: DX Procedure: ERCP BILIARY/PANCREAS. Fluoroscopic services provided for ERCP. Radiation dose: 32.86 mGy. Fluoroscopy: 49 seconds. 7 images were submitted. COMPARISON: Prior study dated November 09, 2024. FINDINGS: Contrast is seen within the common bile duct. There was removal of the biliary stent. RAD/ERCP Biliary/Pancreas IMPRESSION: Removal of the biliary stent. Reading Location: [place] [address] CC: SANDRINE Painter; Tim Murray DO Biological Chemist: Signed Normal [facility] ERCP Reporton 01-03-2025 ERCP Report [facility] Medical Records Department [address] [place] [address] ERCP Report MR#: [id number] Acct: [id number] Name: MICHAEL MEJIA Rep #: [id number] : 1965 59 From: Tim Murray DO PCP: SANDRINE Walker Status:REG [facility] Patient Name: Michael Mejia Procedure Date: 01/03/2025 12:04 PM Date of : 1965 Age: 59 Procedure: ERCP Indications: Bile duct stone(s), Biliary stent removal Providers: Tim Murray DO Referring MD: Sandrine Walker Medicines: Monitored Anesthesia Care Patient Profile: This is a 59 year old male. Refer to note in patient chart for documentation of history and physical. Patient has symptoms. Complications: No immediate complications. Procedure: Pre-Anesthesia Assessment: - Prior to the procedure, a History and Physical was performed, and patient medications and allergies were reviewed. The patient is competent. The risks and benefits of the procedure and the sedation options and risks were discussed with the patient. All questions were answered and informed consent was obtained. Patient identification and proposed procedure were verified by the physician. Mental Status Examination: alert and oriented. Airway Examination: normal oropharyngeal airway and neck mobility. Respiratory Examination: clear to auscultation. CV Examination: normal. ASA Grade Assessment: II - A patient with mild systemic disease. After reviewing the risks and benefits, the patient was deemed in satisfactory condition to undergo the procedure. The anesthesia plan was to use monitored anesthesia care (MAC). Immediately prior to administration of medications, the patient was re-assessed for adequacy to receive sedatives. The heart rate, respiratory rate, oxygen saturations, blood pressure, adequacy of pulmonary ventilation, and response to care were monitored throughout the procedure. The physical status of the patient was re-assessed after the procedure. After obtaining informed consent, the scope was passed under direct vision. Throughout the procedure, the patient's blood pressure, pulse, and oxygen saturations were monitored continuously. The Duodenoscope was introduced through the mouth, and advanced to the duodenum and used to inject contrast into the bile duct. The ERCP was accomplished without difficulty. The patient tolerated the procedure well. Scope In: 12:17:01 PM Scope Out: 12:26:12 PM Total Procedure Duration Time 0 hours 9 minutes 11 seconds Findings: The senior merchandiser film was normal. The esophagus was successfully intubated under direct vision. The scope was advanced to a normal major papilla in the descending duodenum without detailed examination of the pharynx, larynx and associated structures, and upper GI tract. The upper GI tract was grossly normal. The bile duct was deeply cannulated with the short-nosed traction sphincterotome. Contrast was injected. I personally interpreted the bile duct images. There was brisk flow of contrast through the ducts. Image quality was adequate. Contrast extended to the entire biliary tree. Opacification of the entire opacified area, main bile duct, left and right hepatic ducts and all intrahepatic branches and entire biliary tree was successful. The maximum diameter of the ducts was 10 mm. The main bile duct and entire biliary tree contained one stone, which was 6 mm in diameter. The entire biliary tree except for the cystic duct and gallbladder, entire opacified area, left and right hepatic ducts and all intrahepatic branches and entire biliary tree were diffusely dilated, with a stone causing an obstruction. The largest diameter was 12 mm. A long 0.025 inch Jagwire was passed into the biliary tree. A 5 mm biliary sphincterotomy was made with a traction (standard) sphincterotome using ERBE electrocautery. There was no post-sphincterotomy bleeding. The biliary tree was swept with a 12 mm balloon starting at the bifurcation. Sludge was swept from the duct. All stones were removed. One stent was removed from the biliary tree using a snare and sent for cytology. The stent was found to be partially occluded via the water column test. Impression: - The entire biliary tree and left and right hepatic ducts and all intrahepatic branches were dilated, with a stone causing an obstruction. - Choledocholithiasis was found. Complete removal was accomplished by biliary sphincterotomy and balloon extraction. - A biliary sphincterotomy was performed. - The biliary tree was swept. - One stent was removed from the biliary tree. Procedure Code(s): --- Professional --- 81416, Endoscopic retrograde cholangiopancreatograp hy (ERCP); with removal of foreign body(s) or stent(s) from biliary/pancreatic duct(s) 96349, Endoscopic retrograde cholangiopancreatograp hy (ERCP); with removal (more content not included)... Normal [facility] Electrocardiogram reportOrde red By: Osvaldo Hale on 01-03-2025 EKG study [facility] [address] [place] [address] 12 Lead EKG 01/03/25 1012 MR#: [id number] Acct: [id number] Name: MICHAEL MEJIA Rep #:[id number] : 1965 59 From: Osvaldo Hale MD Attending Dr: DO Roya Conrad atus: DEP SDC Ordering Dr: Manas Cantrell MD Date: Location: EN Sex: M C Admitted: Test Reason : PRE-OP Blood Pressure : */* mmHG Vent. Rate : 60 BPM Atrial Rate : 60 BPM P-R Int : 164 ms QRS Dur : 100 ms QT Int : 426 ms P-R-T Axes : 56 -58 28 degrees QTcB Int : 426 ms Normal sinus rhythm Left axis deviation Abnormal ECG When compared with ECG of 06-Nov-2024 06:10, No significant change was found Confirmed by OSVALDO HALE MD ([id number]), makeup editor EVETTE MORRIS ([id number]) on 01/04/2025 10:08:22 AM Referred By: Trupti Painter Confirmed By: OSVALDO HALE MD 01/04/25 1008 Date _ Osvaldo Hale MD CC: SANDRINE Painter; Dr. Manas Cantrell MD; Tim Murray DO ~ Signed [facility] Work Phone: MR/OP.ROBYAToamina 01-03-2025 MR/OP.[facility] Medical Records Department [address] [place] [address] Provation Physician Letter MR#: [id number] Acct: [id number] Name: MICHAEL MEJIA Rep #: [id number] : 1965 59 From: Tim Murray DO PCP: SANDRINE Walker Status:REG [facility] 01/03/2025 Sandrine Walker Re : ERCP procedure for Michael Mejia Dear Car This procedure was performed on Wednesday, January 03, 2025. My impressions and recommendations are as follows: Impressions : - The entire biliary tree and left and right hepatic ducts and all intrahepatic branches were dilated, with a stone causing an obstruction. - Choledocholithiasis was found. Complete removal was accomplished by biliary sphincterotomy and balloon extraction. - A biliary sphincterotomy was performed. - The biliary tree was swept. - One stent was removed from the biliary tree. Recommendations : My findings are described in the full procedure note, which is enclosed. If I can be of further assistance, please feel free to contact me at . Sincerely, Tim Murray DO 01/03/2025 12:34:48 PM This report has been signed electronically. 01/03/25 1235 Date Tim Mclaughlin Signature: Date (if indicated) CC: SANDRINE Painter; Tim Murray DO Date Dictated: 01/03/25 1204 Date Transcribed: Biological Chemist: PHILLIP Signed [facility] MR/POSTOP.ANEon 01-03-2025 MR/POSTOP.[facility] Medical Records Department [address] [place] [address] Anesthesia Postop Eval I 01/03/25 1243 MR#: [id number] Acct: [id number] Name: MICHAEL MEJIA Rep #: [id number] : 1965 59 From: Hank Reese PCP: SANDRINE Walker Status:[facility] Y Race: C Location: [place] [address] Anesthesia: Postop Eval I Current Vital Signs Temperature: 97 F Pulse Rate: 77 Blood Pressure: 108/78 Respiratory Rate: 16 Pulse Ox: 96 Oxygen Delivery Method: Room Air Assessment Airway patent: Yes Spontaneous unlabored respirations: Yes Mental status: Awake and Calm nausea: No Vomiting: No Anesthesia Complication: No Fluid Hydration Crystalloid volume administer (ml): 800 Total IV fluid infused: 800 Progress Note Anesthesia document: Postop Eval 1 completed: Yes 01/03/25 1243 Date Hank Juarez Signature: Date CC: Signed Normal [facility] MR/[id number] 01-03-2025 /POST[address] Medical Records Department [address] [place] [address] Anesthesia Postop Eval II 01/03/25 1355 MR#: [id number] Acct: [id number] Name: MICHAEL MEJIA Rep #: [id number] : 1965 59 From: Manas Cantrell MD PCP: SANDRINE Walker Status:[facility] Y Race: C Location: EN Anesthesia Postop Eval I Sum Postop Eval Completion status Anesthesia document: Postop Eval 1 completed: Yes Anesthesia Postop Eval I Summary Anesthesia Postop Eval I Summary: Anesthesia Postop Eval I: Assessment Summary Airway patent Yes 01/03/25 12:43 [email or web address] Spontaneous unlabored Yes 01/03/25 12:43 [email or web address] respirations Mental status Awake,Calm 01/03/25 12:43 [email or web address] nausea No 01/03/25 12:43 AA.TBEND Vomiting No 01/03/25 12:43 [email or web address] Anesthesia Postop Eval I: Fluid Summary Crystalloid volume administer 800 01/03/25 12:43 [email or web address] (ml) Colloids volume administered ( ml) Blood Product volume administered (ml) Total IV fluid infused 800 01/03/25 12:43 [email or web address] Anesthesia Postop Eval I: Summary Notes Anesthesia Complication No 01/03/25 12:43 [email or web address] Anesthesia Complication Comment: Post-operative progress note Anesthesia: Postop Eval II Evaluation Mental status: Awake and Calm Pain Level: 1 nausea: No Vomiting: No Complications Anesthesia Complication: No 01/03/25 1355 Date [facility]: Date CC: Signed [facility] Special Stain Group IIon Special Stain Group II ----- ---- Patient Age/Sex Location Account Attending Physician ---- MICHAEL MEJIA 59/M EN [id number] Tim Murray DO ---- Specimen: [id number] Received: 01/03/25 Status: MALACHI Emilie Num: [id number] Spec Type: Fluid Subm Dr: Tim Murray DO HEADER OPERATION: ERCP, stent removal PRE-OP DIAGNOSIS: Status post ERCP, status post cholecystectomy TISSUE SUBMITTED: A- Biliary stent for cytology ---- DIAGNOSIS CYTOLOGY A. Biliary stent, ERCP (cytospin, cellblock): * Essentially acellular specimen. * Amorphous debris, bacteria and bile pigment noted. CYTOLOGY STUDY Slides are reviewed. CYTOLOGY GROSS A. Received is 7.8 x 0.3cm blue/black synthetic tube with <5 ml of yellow-cloudy fluid and particles labeled with the patient's name and and designated per the requisition as Biliary stent. Submitted for cytology and cell block preparation. Mr 01/03/2025 CPT: 27928,75314 Signed (signature on file) Dr. Jennifer Szymanski MD 01/11/25 1459 ---- Normal [facility] Comment on above: Performed By: #### P SSII #### [facility] [address] [place], [address] MR/PAT.JOANNon 01-01-2025 MR/PAT.JOANN [facility] Medical Records Department [address] [place] [address] PAT - Anesthesia 01/01/25 1100 MR#: [id number] Acct: [id number] Name: MEJIAMICHAEL Sr. Rep #: [id number] : 1965 59 From: Santosh Seymour MD PCP: Dr. Beryl Harrison, DO Status:PRE [facility] Y Race: C Location: EN Pre-Assessment Diagnosis/Proposed Procedure Planned Operative Procedure(s): ERCP Anesthesia History Anesthesia History - deburr technician: Anesthesia History - deburr technician Hx Hospitalization Yes 01/01/25 10:56 Any Problems With Anesthesia No 01/01/25 10:56 Cholinesterase deficiency No 01/01/25 10:56 You/Your Family Experience No 01/01/25 10:56 fever (hyperthermia) with Relationship Recent Exposure to Contagious No 11/27/24 11:57 Disease Does patient have nerve No 01/01/25 10:56 stimulator Patient instructed to have device shut off --Does patient have Pacemaker or ICD? When Was Last Pacemaker Check QUESTION #4 FULL TEXT: You/Your Family Experience fever (hyperthermia) with Anesthesia Last Oral Intake Last Oral intake: Last Oral Intake NPO since Meds taken in AM with sips of water? Meds patient instructed to take am of surgery PONV PONV - deburr technician: PONV - deburr technician Female No 01/01/25 10:56 HX of Motion Sickness No 01/01/25 10:56 HX of N/V After Surgery No 01/01/25 10:56 Non-Smoker No 01/01/25 10:56 Duration of Surgery greater No 01/01/25 10:56 than 60 minutes Number of Risk Factors PONV Score Height Weight Height Weight: Anesthesia: Height Weight Height 5 ft 11 in 11/27/24 11:57 Respiratory Assessment Respiratory Assessment - deburr technician: Respiratory Tract Infection Hx - deburr technician Hx Respiratory Tract Infection No 01/01/25 10:56 STOP Sleep Apnea STOP Sleep Apnea - deburr technician: STOP Sleep Apnea - deburr technician Hx Hypertension Yes: CONTROLLED ON MED 01/01/25 10:56 Hx Sleep Apnea No 01/01/25 10:56 CPAP BIPAP Do you snore loudly (louder No 01/01/25 10:56 than talking or can be heard Do you often feel tired/ No 01/01/25 10:56 fatigued/ sleepy during daytime? Has anyone observed you stop No 01/01/25 10:56 breathing during sleep? STOP Results Negative 01/01/25 10:56 QUESTION #5 FULL TEXT : Do you snore loudly (louder than talking or can be heard through closed doors)? 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 Specify any problems Hx of Preganancy in last 3 N/A 01/01/25 10:56 Months Nurse Filling Out Transfusion VCHRISTIN 01/01/25 10:56 Questions: Date: 01/01/25 01/01/25 10:56 Time: 10:58 01/01/25 10:56 Patient unable to answer at this time (ie. confused, unrespo /Reproduction History /Reproductive History - deburr technician: /Reproductive Hx- deburr technician Hx Now No 01/01/25 10:56 Gestational Age (in weeks): EDC: Hx Hx Para Hx Section SAB No 01/01/25 10:56 [facility] Medical History (Updated 01/01/25 @ 10:56 by Vicky Farias) Wears glasses DVT (deep venous thrombosis) Gastric reflux Chewing tobacco dependence Former smoker Sleep apnea Shortness of breath on exertion Depression Anxiety HTN (hypertension) Appendicitis Home Medications ???Medication ???Instructions ???Recorded ???Last Taken ???Type cetirizine 10 mg tablet (Allergy 10 mg PO DAILY allergies 11/05/24 Unknown History Relief (cetirizine)) losartan 50 mg tablet 50 mg PO DAILY blood pressure 10/20 10/13 Unknown History pantoprazole 40 mg tablet,delayed 40 mg PO BID gerd 11/05/24 Unknow n History release sertraline 100 mg tablet 100 mg PO DAILY anxiety 11/05/24 U nknown History aspirin 81 mg tablet 81 mg PO QDAY 11/28/24 12/24/24 Hi story Allergy/AdvReac Type Severity Reaction Status Date / Time azithromycin (From Zithromax) Allergy Severe Rash Verified 01/01/25 10:45 adhesive Allergy Intermediate Rash Verified 01/01/25 10 (more content not included)... Normal [facility] Gastroenterology Visit Repor ton 11-28-2024 Gastroenterology Visit Report [facility] Gastroenterology [address] [place] [place] [address] OFFICE VISIT Date of Service: 11/28/24 MR#: [id number] Acct: [id number] Name: MEJIAMICHAEL A Sr. Rep #: [id number] : 1965 Provider: WILLIAM Cohen Age/Sex: 58/M [place] [facility] [place]: Signed Intake Vital Signs 11/09/24 13:46 11/27/24 11:57 Height 5 ft 11 in 5 ft 11 in Intake Visit Reasons: DISCUSS AND SCHEDULE STENT REMOVAL Chief Complaint: Status post ERCP and cholecystectomy Allergies azithromycin (From Zithromax) Allergy (Severe, Verified 11/23/24 13:44) Rash adhesive Allergy (Intermediate, Verified 11/23/24 13:44) Rash Medications ???Medication ???Instructions ???Recorded ???Confirmed ???Type cetirizine 10 mg tablet (Allergy 10 mg PO DAILY allergies 11/05/24 11/28/24 History Relief (cetirizine)) losartan 50 mg tablet 50 mg PO DAILY blood pressure 10/2011/28/24 History pantoprazole 40 mg tablet,delayed 40 mg PO BID gerd 11/05/24 History release sertraline 100 mg tablet 100 mg PO DAILY anxiety 11/05/24 0 11/28/24 History aspirin 81 mg tablet 81 mg PO QDAY 11/28/24 11/28/24 Co story Nurse's Note: Pt was scheduled for ERCP stent removal on 01.03.25 at the end of their appt today. Reviewed prep instructions and which medications to hold prior to procedure with pt in office. A paper copy of ERCP prep instructions were given to pt. Pt denies any questions or concerns at this time. Cardiac Clearance faxed to [facility] F:[phone] [facility] Medical History Depression Anxiety HTN (hypertension) Appendicitis Surgical History (Updated 11/28/24 @ 14:40 by WILLIAM Cohen) Hx of tonsillectomy S/P cholecystectomy H/O sinus surgery H/O hernia repair Social History (Updated 11/28/24 @ 14:10 by Rashida Magdaleno) Smoking Status: Former smoker alcohol intake: never substance use type: does not use what type of physical activity do you participate in: none HPI HPI Chief Complaint: Status post ERCP and cholecystectomy Details: MICHAEL MEJIA, is a 58 M who presents to the office today for follow-up. [facility] admission 11.05.24-11.12.24 with suspected choledocholithiasis transferred from outside facility. Patient with complaints of generalized abdominal pain and jaundice over the past 3 weeks. patient's bilirubin was 15, AST 226, ALP 599. Underwent ERCP. ERCP with stone causing obstruction. Underwent cholecystectomy. ERCP 11.06.24 the hepatic duct system, entire main bile duct, common bile duct and common hepatic duct were dilated, with a stone causing an obstruction. Choledocholithiasis was found. Complete removal was Accomplished by biliary sphincterotomy and balloon extraction. A biliary sphincterotomy was performed. The biliary tree was swept and pus, mucus and debris's were found, 1 temporary stent was placed into the common bile duct OV 11.28.24 patient here today for follow-up after ERCP with CBD stent placement. Patient denies any further abdominal pain and has been feeling well. ROS Const Constitutional: No fatigue, fever(s) or weight change ENT ENT: No difficulty swallowing Gastro GI: No abdominal pain, belching, bloating, change in bowel habits, change in stool character, coffee ground emesis, constipation, cramping, diarrhea, heartburn, difficulty swallowing, feeling full early, excessive flatus, incontinent of stools, Vomiting blood/hematemesis, Blood in stool, loose stools, Black,tarry stools, nausea/dyspepsia, pain with swallowing, vomiting or other Musc Musculoskeletal: No joint pain Skin Skin: No yellowing of the eye or itchy eyes Psych Psychiatric: No anxiety, No depression and Positive for hyperactivity Endo Endocrine: No fatigue or weight change Aller/Imm Allergy/Immunologic: No itchy eyes Checo/Lymp Hematologic/Lymphatic: No easy bleeding or easy bruising Exam Const General: cooperative and comfortable Nutritional Appearance: average body habitus Orientation: alert HENMT Head: normal to inspection Eyes General: appearance normal, both eyes and all related structures Neck Neck: normal visual inspection Chest Chest palpation inspection: normal inspection of the chest Resp Effort Inspection: normal respiratory effort GI Inspection: normal to inspection Assessment and Plan Assessment and Plan (1) S/P cholecystectomy: Status: Acute Plan: Michael is a 58-year-old male patient here today for follow-up after hospitalization in October 2024 for cholecystitis and choledocholithiasis. Patient underwent ERCP with stone removal and stent placement in the common bile duct. Following this he underwent cholecystectomy. Patient is here today to be scheduled for ERCP with stent removal. He i (more content not included)... Normal [facility] Surgery Visit Reporton 11-23 Surgery Visit Report [facility] [address] [place] [address] OFFICE VISIT Date of Service: 11/23/24 MR#: [id number] Acct: [id number] Name: MEJIAMICHAEL Sr. Rep #: [id number] : 1965 Provider: SYEDA hollins Age/Sex: 58/M Location: [facility] Status: Signed Intake Vital Signs 11/09/24 13:46 Height 5 ft 11 in Intake Visit Reasons: GALLBLADDER 8- Chief Complaint: gallbladdder 11-09 Accompanied by: Is patient in pain?: No Allergies azithromycin (From Zithromax) Allergy (Severe, Verified 11/23/24 13:06) Rash Medications ???Medication ???Instructions ???Recorded ???Confirmed ???Type cetirizine 10 mg tablet (Allergy 10 mg PO DAILY allergies 11/05/24 11/05/24 History Relief (cetirizine)) losartan 50 mg tablet 50 mg PO DAILY blood pressure 10/2011/05/24 History pantoprazole 40 mg tablet,delayed 40 mg PO BID gerd 11/05/24 History release sertraline 100 mg tablet 100 mg PO DAILY anxiety 11/05/24 0 11/05/24 History Subjective Details: Patient is a 58 y/o M I am following s/p laparoscopic cholecystectomy with intraoperative cholangiogram by Dr. Williamson on 11/09/24. Dr. Murray performed an ERCP with stone removal and stent placement on 11/06/24. Patient tolerated the procedure well. Patient notes intermittent incisional tenderness. He notes having a reaction to the adhesive of the steri-strips. He has been applying Benadryl ointment to the area with improvement. He denies any nausea, vomiting, fever. He notes appetite and bowel habits have returned to normal. Pathology was reviewed with the patient and demonstrated: MICROSCOPIC DIAGNOSIS A. Gallbladder, laparoscopic cholecystectomy: ??? Acute and chronic cholecystitis with mucosal erosion, hemorrhage and cholelithiasis Objective Details: Abdomen- soft, nontender. Incisions c/d/i. Slight faint rash around the incision sites which appear to be healing. No signs of infection noted. Coding Level of Care Code Global Post Op Diagnoses S/P cholecystectomy Z90.49 [facility] Medical History (Updated 11/18/24 @ 00:01 by Butch Arango) Depression Anxiety HTN (hypertension) Appendicitis Surgical History (Updated 11/23/24 @ 13:07 by Lori Cueva LPN) S/P cholecystectomy H/O sinus surgery H/O hernia repair Social History Smoking Status: Former smoker Assessment and Plan (No Qualifiers) Assessment and Plan (1) S/P cholecystectomy: Status: Acute Plan: No restrictions starting tomorrow Will send Dr. Murray's office notification of patient needing an appointment to schedule stent removal. Office number provided to the patient. Discussed signs of infection and when to contact our office Follow-up as needed 11/23/24 1343 Date Evette Juarez Signature: Date (if applicable) CC: Dr. Beryl Harrison, Normal [facility] Discharge Instructionon 10-21 Discharge Instruction [facility] Medical Records Department [address] [place] [id number] Instructions for Home/Discharge Instructions 11/10/24 1207 MR#: [id number] Acct: [id number] Name: MEJIAMICHAEL Sr. Rep #: [id number] : 1965 58 From: Micky Meadows DO PCP: Dr. Beryl Harrison, Status:ADM IN Discharge Instructions DC O2, CPAP, BIPAP needs Home O2 Discharge instructions: No Dressing / Incision Discharge Activity: Return to Normal Activity May shower in (days): 1 Weight Bearing Status: Full weight bearing Additional Activity Instructions:: Pain medication may cause nausea. You should typically eat light foods as you take your pain medications. Pain medication may also cause constipation. If this is a problem for you, please discuss with your doctor. Dressing / Incision Call your doctor if your incision/area has: Continuous Slow Oozing, Sudden Increased Bleeding, Increased Pain/ Swelling, Increased Redness and Foul Smelling Discharge Call your doctor if you observe: Fever of 101 or Higher Suture Line Care: Avoid Pulling/Pushing and Avoid Pinching/Bending Additional Dressing/Incision Instructions:: Leave operative bandaids on for 2 days. When you remove dressing, leave Steri-Strips on until your follow-up appointment, or until the Steri-Strips fall off on their own. Alternate Tylenol and ibuprofen for pain, oxycodone for breakthrough pain Follow Up Care Please Follow Up With: Boston Williamson MD Test Results: Test results from this visit will be discussed in further detail at your follow-up appointment, if applicable. Discharge Plan Admission Admit Date/Time: 11/05/24 16:58 Primary Reason for Your Visit: Cholecystitis, choledocholithiasis Attending Provider: Micky Meadows Primary Care Provider: Beryl Harrison Consulting Providers: Boston Williamson; Kate Stark Discharge Orders/Prescriptions Prescriptions: New oxycodone 5 mg Tablet 5 mg PO Q4H PRN PRN (Reason: Pain Score 4-10) 5 Days Qty: 10 0RF amoxicillin-pot clavulanate [Augmentin] 500-125 mg tablet 1 tab PO BID 5 Days Qty: 10 0RF Continued pantoprazole 40 mg tablet,delayed release (DR/EC) 40 mg PO BID sertraline 100 mg tablet 100 mg PO DAILY losartan 50 mg tablet 50 mg PO DAILY cetirizine [Allergy Relief (cetirizine)] 10 mg tablet 10 mg PO DAILY Referrals / Follow Up: Beryl Harrison DO [Primary Care Provider] - Boston Williamson MD [Med Staff - Active Staff] - See Referral Note (Call his office to make an appointment for follow-up) Disposition Disposition (needs filled in before D/C Order can be placed): Home, Self Care 11/10/24 1212 Micky Meadows DO CC: Dr. Boston Williamson MD; Dr. Beryl Harrison DO; Dr. Kate Stark MD Signed Normal [facility] Discharge Instruction [facility] Medical Records Department [address] [place] [address] Instructions for Home/Discharge Instructions 11/10/24 1154 MR#: [id number] Acct: [id number] Name: MICHAEL MEJIA Sr. Rep #: [id number] : 1965 58 From: Boston Williamson MD PCP: Dr. Beryl Harrison DO Status:ADM IN Discharge Instructions DC O2, CPAP, BIPAP needs Home O2 Discharge instructions: No Dressing / Incision Discharge Activity: May Not Drive (for 2-3 days or while taking narcotic pain medications.) and - (Do not drive, work heavy equipment or sign legal documents for 24 hours.) May shower in (days): 1 Lifting Restrictions: 20 lbs for 2 weeks Additional Activity Instructions:: Pain medication may cause nausea. You should typically eat light foods as you take your pain medications. Pain medication may also cause constipation. If this is a problem for you, please discuss with your doctor. Dressing / Incision Call your doctor if your incision/area has: Continuous Slow Oozing, Sudden Increased Bleeding, Increased Pain/ Swelling, Increased Redness and Foul Smelling Discharge Call your doctor if you observe: Fever of 101 or Higher Suture Line Care: Avoid Pulling/Pushing and Avoid Pinching/Bending Remove Dressing in: 2 days Additional Dressing/Incision Instructions:: Leave operative bandaids on for 2 days. When you remove dressing, leave Steri-Strips on until your follow-up appointment, or until the Steri-Strips fall off on their own. Alternate Tylenol and ibuprofen for pain, oxycodone for breakthrough pain Follow Up Care Please Follow Up With: Boston Williamson MD When: Please call to schedule 2 week follow up appointment. [phone] Test Results: Test results from this visit will be discussed in further detail at your follow-up appointment, if applicable. Discharge Plan Admission Admit Date/Time: 11/05/24 16:58 Attending Provider: Micky Meadows Primary Care Provider: Beryl Harrison Consulting Providers: Boston Williamson; Kate Stark Discharge Orders/Prescriptions Prescriptions: New oxycodone 5 mg Tablet 5 mg PO Q4H PRN PRN (Reason: Pain Score 4-10) 5 Days Qty: 10 0RF amoxicillin-pot clavulanate [Augmentin] 500-125 mg tablet 1 tab PO BID 5 Days Qty: 10 0RF Continued pantoprazole 40 mg tablet,delayed release (DR/EC) 40 mg PO BID sertraline 100 mg tablet 100 mg PO DAILY losartan 50 mg tablet 50 mg PO DAILY cetirizine [Allergy Relief (cetirizine)] 10 mg tablet 10 mg PO DAILY Referrals / Follow Up: Beryl Harrison DO [Primary Care Provider] - Disposition Disposition (needs filled in before D/C Order can be placed): Home, Self Care 11/10/24 4566 Boston Williamson MD CC: Dr. Boston Williamson MD; Dr. Beryl Harrison DO; Dr. Kate Stark MD Signed Normal [facility] Surgical pathology reportOrd ered By: Taylor Jolley on 11-10-2024 Surgical pathology study [facility] Absolute lymphocyte countOrd ered By: Evette Ochoa on 11-09-2024 Lymphocytes Auto (Unsp spec) [#/Vol] 1.86 10*3/uL 0.83-4.51 [facility] Absolute neutrophil countOrd ered By: Evette Ochoa on 11-09-2024 Neutrophils (Bld) [#/Vol] 5.3 10*3/uL 2.0-7.7 [facility] Anion gap in Serum or Plasma Ordered By: Evette Ochoa on 11-09-2024 Anion gap [Moles/Vol] 11 mmol/L 5-15 [facility] Automated lymphocyte count a s percentage of total leukocytesOrdered By: Evette Ochoa on 11-09-2024 Lymphocytes/100 WBC Auto (Unsp spec) 22.3 % 19- [facility] BUN/creatinine ratioOrdered By: Evetteelayne Ochoa on 11-09-2024 Urea nitrogen/Creatinine [Mass ratio] 12.6 mg/mg 10-20 [facility] Basophil percentageOrdered B y: Evette Ochoa on 11-09-2024 Basophils/100 WBC (Bld) 1.6 % High 0-1 [facility] Bilirubin, totalOrdered By: Evette Ochoa on 11-09-2024 Bilirubin [Mass/Vol] 2.93 mg/dL High 0.00-1.30 [facility] CBC W/Diff, Automatedon 10-21 Absolute Lymph 1.86 X10 3/uL Normal 0.83-4.51 [facility] Comment on above: Performed By: #### L 500.4050, L100.0100 ####[facility] [address] [place], [address] Absolute Neut 5.3 X10 3/uL Normal 2.0-7.7 [facility] Comment on above: Performed By: #### L 500.4050, L100.0100 ####[facility] [address] [place], [address] Basophils/100 WBC (Bld) 1.6 % High 0-1 [facility] Comment on above: Performed By: #### L 500.4050, L100.0100 ####[facility] [address] [place], [address] Eosinophils/100 WBC (Bld) 4.3 % Normal 0-5 [facility] Comment on above: Performed By: #### L 500.4050, L100.0100 ####[facility] [address] [place], [address] Erythrocyte distribution width (RBC) [Ratio] 14.4 % Normal 11.6-14.6 [facility] Comment on above: Performed By: #### L 500.4050, L100.0100 ####[facility] [address] [place], [address] Hematocrit (Bld) [Volume fraction] 39.1 % Low 40-54 [facility] Comment on above: Performed By: #### L 500.4050, L100.0100 ####[facility] [address] [place], [address] Hemoglobin (Bld) [Mass/Vol] 13.0 g/dL Normal 13.0-16.5 [facility] Comment on above: Performed By: #### L 500.4050, L100.0100 ####[facility] [address] [place], [address] IG% 0.500 Normal 0.0-0.9 [facility] Comment on above: Result Comment: IG% - Immature Granulocytes (promyelocytes, myelocytes and metamyelocytes) > 1% indicates that a LEFT SHIFT is Present. Performed By: #### L 500.4050, L100.0100 ####[facility] [address] [place], [address] Lymphocytes/100 WBC (Bld) 22.3 % Normal 19-41 [facility] Comment on above: Performed By: #### L 500.4050, L100.0100 ####[facility] [address] [place], [address] MCH (RBC) [Entitic mass] 29.0 pg Normal 27.0-32.0 [facility] Comment on above: Performed By: #### L 500.4050, L100.0100 ####[facility] [address] [place], [address] MCHC (RBC) [Mass/Vol] 33.2 g/dL Normal 32-36 [facility] Comment on above: Performed By: #### L 500.4050, L100.0100 ####[facility] [address] [place], [address] MCV (RBC) [Entitic vol] 87.1 fL Normal 80-94 [facility] Comment on above: Performed By: #### L 500.4050, L100.0100 ####[facility] [address] [place], [address] Monocytes/100 WBC (Bld) 7.8 % Normal 0-10 [facility] Comment on above: Performed By: #### L 500.4050, L100.0100 ####[facility] [address] [place], [address] Neutrophils/100 WBC (Bld) 63.5 % Normal 47-70 [facility] Comment on above: Performed By: #### L 500.4050, L100.0100 ####[facility] [address] [place], [address] Nucleated RBC (Bld) [#/Vol] 0 10*3/uL Normal 0-5 [facility] Comment on above: Performed By: #### L 500.4050, L100.0100 ####[facility] [address] [place], [address] Platelet mean volume (Bld) [Entitic vol] 8.7 fL Normal 6.2-12.0 [facility] Comment on above: Performed By: #### L 500.4050, L100.0100 ####[facility] [address] [place], [address] Platelets (Bld) [#/Vol] 356 10*3/uL Normal 150-450 [facility] Comment on above: Performed By: #### L 500.4050, L100.0100 ####[facility] [address] [place], [address] RBC (Bld) [#/Vol] 4.49 10*6/uL Low 4.6-6.2 [facility] Comment on above: Performed By: #### L 500.4050, L100.0100 ####[facility] [address] [place], [address] RDW SD 45.8 fl High 35.1-43.9 [facility] Comment on above: Performed By: #### L 500.4050, L100.0100 ####[facility] [address] [place], [address] WBC (Bld) [#/Vol] 8.4 10*3/uL Normal 4.4-11.0 [facility] Comment on above: Performed By: #### L 500.4050, L100.0100 ####[facility] [address] [place], [address] Carbon dioxide, total [Moles /volume] in Central venous bloodOrdered By: Evette Ochoa on 11-09-2024 CO2 [Moles/Vol] 25.6 mmol/L 21.0-32.0 [facility] Chloride assayOrdered By: Dany Ochoa on 11-09-2024 Chloride [Moles/Vol] 99 mmol/L 98-108 [facility] Cholangiogram/ O R,Initialon 11-09-2024 Cholangiogram/ O R,Initial [facility] Imaging Services [address] [place], [place] [address] Cholangiogram/ O R,Initial MR#: [id number] Acct: [id number] Name: MICHAEL MEJIA Sr. Rep #: [id number] : 1965 M 58 From: [employer] PCP: Dr. Beryl Harrison DO Status: ADM IN Study: Cholangiogram/ O R,Initial Date of Exam: 11/09 Exam# [id number] Ordering Dr: Boston Williamson PROCEDURE: CHOLANGIOGRAM/ O R,INITIAL; O.R. FLUORO FOR C-ARM 11/09/2024 REASON FOR EXAM: CHOLECYSTECTOMY WITH IOC TECHNIQUE: CHOLANGIOGRAM/ O R,INITIAL; O.R. FLUORO FOR C-ARM Fluoroscopy time: 23.9 seconds. Dose: 16.72 mGy. COMPARISON: CT examination of 11/06/2024. RAD/Cholangiogram/ O R,Initial IMPRESSION: Intraoperative fluoroscopy was performed for ERCP. Numerous fluoroscopic images were also obtained. Also, cholelithiasis is seen. Reading Location: [place] [address] CC: Dr. Boston Williamson MD; Dr. Beryl Harrison DO Biological Chemist: Signed Normal [facility] Comprehensive Metabolic Prof ilon 11-09-2024 Albumin [Mass/Vol] 3.4 g/dL Low 3.5-5.0 [facility] Comment on above: Performed By: #### L 500.4050, L100.0100 ####[facility] [address] [place], [place], [address] Albumin/Globulin [Mass ratio] 1.2 {ratio} Normal 0.9-2.4 [facility] Comment on above: Performed By: #### L 500.4050, L100.0100 ####[facility] [address] [place], [address] ALK PHOS 323 U/L High 40-129 [facility] Comment on above: Performed By: #### L 500.4050, L100.0100 ####[facility] [address] [place], [address] ALT [Catalytic activity/Vol] 130 U/L High <=46 [facility] Comment on above: Performed By: #### L 500.4050, L100.0100 ####[facility] [address] [place], [address] AST [Catalytic activity/Vol] 67 U/L High <=37 [facility] Comment on above: Result Comment: Hemo lysis present, Results??could be affected. ?? Performed By: #### L 500.4050, L100.0100 ####[facility] [address] [place], [address] Bilirubin [Mass/Vol] 2.93 mg/dL High 0.00-1.30 [facility] Comment on above: Performed By: #### L 500.4050, L100.0100 ####[facility] [address] [place], [address] BUN/CRE 12.6 RATIO Normal 10-20 [facility] Comment on above: Performed By: #### L 500.4050, L100.0100 ####[facility] [address] [place], [address] Calcium [Mass/Vol] 8.7 mg/dL Normal 7.6-11.0 [facility] Comment on above: Performed By: #### L 500.4050, L100.0100 ####[facility] [address] [place], [address] Chloride [Moles/Vol] 99 mmol/L Normal 98-108 [facility] Comment on above: Performed By: #### L 500.4050, L100.0100 ####[facility] [address] [place], [address] CO2 [Moles/Vol] 25.6 mmol/L Normal 21.0-32.0 [facility] Comment on above: Performed By: #### L 500.4050, L100.0100 ####[facility] [address] [place], [address] Creatinine [Mass/Vol] 1.05 mg/dL Normal 0.70-1.20 [facility] Comment on above: Performed By: #### L 500.4050, L100.0100 ####[facility] [address] [place], [address] ECRCL 90.19 ml/min Normal 50-250 [facility] Comment on above: Performed By: #### L 500.4050, L100.0100 ####[facility] [address] [place], [address] GAP 11 Normal 5-15 [facility] Comment on above: Performed By: #### L 500.4050, L100.0100 ####[facility] [address] [place], [address] GFR/1.73 sq M.predicted among non-blacks MDRD (S/P/Bld) [Vol rate/Area] 82 mL/min/{1.73_m2} Normal >60 [facility] Comment on above: Result Comment: mL/m in/1.73m2 CKD-EPI Creatinine Equation (2020) Performed By: #### L 500.4050, L100.0100 ####[facility] [address] [place], [address] Globulin (S) [Mass/Vol] 2.9 g/dL Normal 2.2-4.2 [facility] Comment on above: Performed By: #### L 500.4050, L100.0100 ####[facility] [address] [place], [address] Glucose [Mass/Vol] 92 mg/dL Normal 70-99 [facility] Comment on above: Performed By: #### L 500.4050, L100.0100 ####[facility] [address] [place], [address] Potassium [Moles/Vol] 4.2 mmol/L Normal 3.3-5.1 [facility] Comment on above: Result Comment: Hemo lysis present, Results??could be affected. ?? Performed By: #### L 500.4050, L100.0100 ####[facility] [address] [place], [address] Sodium [Moles/Vol] 136 mmol/L Normal 133-145 [facility] Comment on above: Performed By: #### L 500.4050, L100.0100 ####[facility] [address] [place], [address] T PROT 6.3 g/dL Normal 5.9-8.4 [facility] Comment on above: Performed By: #### L 500.4050, L100.0100 ####[facility] [address] [place], [address] Urea nitrogen [Mass/Vol] 13 mg/dL Normal 4-19 [facility] Comment on above: Performed By: #### L 500.4050, L100.0100 ####[facility] [address] [place], [address] Eosinophil percentageOrdered By: Evette Ochoa on 11-09-2024 Eosinophils/100 WBC (Bld) 4.3 % 0-5 [facility] Erythrocyte distribution wid th ratioOrdered By: Evette Ochoa on 11-09-2024 Erythrocyte distribution width (RBC) [Ratio] 14.4 % 11.6-14.6 [facility] Erythrocyte distribution wid th standard deviationOrdered By: Evette Ocoha on 11-09-2024 Erythrocyte distribution width (RBC) [Ratio] 45.8 fl High 35.1-43.9 [facility] Glomerular filtration rate ( GFR) estimation/1.73 sq m using serum, plasma, or whole bOrdered By: Evette Ochoa on 11-09-2024 GFR/1.73 sq M.predicted among non-blacks MDRD (S/P/Bld) [Vol rate/Area] 82 mL/min/{1.73_m2} >60 [facility] Comment on above: mL/min/1.73m2 CKD-EP I Creatinine Equation (2020) Hematocrit Auto (Bld) [Volum e fraction]Ordered By: Evette Ochoa on 11-09-2024 Hematocrit (Bld) [Volume fraction] 39.1 % Low 40-54 [facility] Hemoglobin measurementOrdere d By: Eevtte Ochoa on 11-09-2024 Hemoglobin (Bld) [Mass/Vol] 13.0 g/dL 13.0-16.5 [facility] Immature granulocytes/100 WB C Auto (Bld)Ordered By: Evette Ochoa on 11-09-2024 Immature granulocytes/100 WBC (Bld) 0.500 % 0.0-0.9 [facility] Comment on above: IG% - Immature Granu locytes (promyelocytes, myelocytes and metamyelocytes) > 1% indicates that a LEFT SHIFT is Present. Laboratory - Chemistry and C hemistry - challengeOrdered By: Evette Ochoa on 11-09-2024 AST [Catalytic activity/Vol] 67 U/L High <38 [facility] Comment on above: Hemolysis present, R esults could be affected. MCV (mean corpuscular volume ) determinationOrdered By: Evette Ochoa on 11-09-2024 MCV (RBC) [Entitic vol] 87.1 fL 80-94 [facility] MR/POSTOP.ANEon 11-09-2024 MR/POSTOP.ANE [facility] Medical Records Department [address] [place] [address] Anesthesia Postop Eval I 11/09/2423 MR#: [id number] Acct: [id number] Name: MICHAEL MEJIA Lesley Sr. Rep #: [id number] : 1965 58 From: Gurpreet Navarro CRNA PCP: Dr. Beryl Harrison, DO Status:ADM IN Y Race: C Location: [place] [address] Anesthesia: Postop Eval I Current Vital Signs Temperature: 97.5 F Pulse Rate: 75 Blood Pressure: 122/68 Respiratory Rate: 20 Pulse Ox: 97 Oxygen Delivery Method: Room Air Assessment Airway patent: Yes Spontaneous unlabored respirations: Yes Mental status: Awake and Calm nausea: No Vomiting: No Anesthesia Complication: No Fluid Hydration Crystalloid volume administer (ml): 1,400 Total IV fluid infused: 1,400 Progress Note Anesthesia document: Postop Eval 1 completed: Yes 11/09/2424 Date Gurpreet Navarro CRNA Cosigner Signature: Date CC: Signed Normal [facility] Mean corpuscular hemoglobin (MCH) determinationOrdered By: Evette Ochoa on 11-09-2024 MCH (RBC) [Entitic mass] 29.0 pg 27.0-32.0 [facility] Mean corpuscular hemoglobin concentration (MCHC) determinationOrdered By: Evette Ochoa on 11-09-2024 MCHC (RBC) [Mass/Vol] 33.2 g/dL 32-36 [facility] Mean platelet volume determi nationOrdered By: Evette Ochoa on 11-09-2024 Platelet mean volume (Bld) [Entitic vol] 8.7 fL 6.2-12.0 [facility] Monocyte percentageOrdered B y: Evette Ochoa on 11-09-2024 Monocytes/100 WBC (Bld) 7.8 % 0-10 [facility] Neutrophil percentageOrdered By: Evette Ochoa on 11-09-2024 Neutrophils/100 WBC (Bld) 63.5 % 47-70 [facility] Nucleated red blood cell per centageOrdered By: Evette Ochoa on 11-09-2024 Nucleated RBC/100 WBC (Bld) [Ratio] 0 % 0-5 [facility] O.R. Fluoro for C-Gutierrez 10-21 O.R. Fluoro for C-Arm [facility] Imaging Services [address] [facility] [place] [address] O.R. Fluoro for C-Arm MR#: [id number] Acct: [id number] Name: MICHAEL MEJIA Sr. Rep #: [id number] : 1965 M 58 From: Benja Painting PCP: Dr. Beryl Harrison DO Status: ADM IN Study: O.R. Fluoro for C-Arm Date of Exam: 11/09/24 Exam# [id number] Ordering Dr: Boston Williamson PROCEDURE: CHOLANGIOGRAM/ O R,INITIAL; O.R. FLUORO FOR C-ARM 11/09/2024 REASON FOR EXAM: CHOLECYSTECTOMY WITH IOC TECHNIQUE: CHOLANGIOGRAM/ O R,INITIAL; O.R. FLUORO FOR C-ARM Fluoroscopy time: 23.9 seconds. Dose: 16.72 mGy. COMPARISON: CT examination of 11/06/2024. RAD/O.R. Fluoro for C-Arm IMPRESSION: Intraoperative fluoroscopy was performed for ERCP. Numerous fluoroscopic images were also obtained. Also, cholelithiasis is seen. Reading Location: [place] [address] CC: Dr. Boston Williamson MD; Dr. Beryl Harrison DO Biological Chemist: Signed Normal [facility] Operative Reporton Operative Report [facility] Medical Records Department [address] [facility] [place] [address] Operative Report 11/09/24 0904 MR#: [id number] Acct: [id number] Name: MICHAEL MEJIA Sr. Rep #: [id number] : 1965 58 From: Boston Williamson MD PCP: Dr. 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[employer] Store: Vandana Gamboa Tasks completed by first officer: Opening closing and Retracting Type of Anesthesia: General/Regional RN Documented Start/Stop Times: Operation Date: 11/09/24 07:30 Case Time Into Pre-Op 11/09/24 06:55 Anesthesia Start 11/09/24 07:28 Into Room 11/09/24 07:28 Out of Pre-Op 11/09/24 07:28 Procedure Start 11/09/24 07:47 Procedure Start Time: 07:47 Procedure Stop Time: 09:15 Select all DRAINS/GRAFTS/IMPLANTS that apply: Drains Drain details: SULAIMAN to bulb suction Estimated Blood Loss: 20 Specimen collected: Yes Description of specimen(s) removed: Gallbladder Description of surgery: After obtaining informed consent patient was brought back to the operating room. General anesthesia was induced. The abdomen was prepped and draped in usual sterile fashion. A small midline incision was made superior to the umbilicus and deepened to the level of fascia. The fascia was elevated and incised. Next the peritoneum was elevated and incised in the same fashion. Finger sweep was performed and the Fox trocar was placed into the abdomen. The balloon was inflated. The abdomen was inflated to 15 mmHg. Next a camera was introduced into the abdomen and the abdomen was inspected. Next under direct visualization three 5-mm ports were placed one subxiphoid and 2 subcostal. Next the gallbladder was elevated and retracted toward the right shoulder. The peritoneum was stripped from the gallbladder. The gallbladder was very inflamed and the fat from the intra-abdominal cavity was densely adherent to the gallbladder. The gallbladder perforated upon grasping and there was purulent material filling it. There was some spillage of purulent material and stones. This was suctioned up. The infundibulum was located and retracted laterally. Next the triangle of Calot was dissected and the cystic duct and cystic artery were identified. Cholangiograms were performed. The Martinez clamp was used to clamp across the infundibulum and the catheter needle was inserted into the gallbladder. Under fluoroscopy contrast was instilled into the gallbladder and the common duct, cystic duct as well as proximal hepatic ducts were identified. There was good filling of the duodenum. There were no filling defects noted in the common bile duct. The clamp was removed as well as the needle and the infundibulum was grasped once more. Three hemolock clips were placed across the cystic duct. The cystic duct was then divided leaving 2 clips on the stump. The cystic artery was clipped and divided in the same fashion. The hook cautery was then used to take the gallbladder off of the gallbladder bed. Hemostasis was obtained. Gallbladder fossa was irrigated and no active bleeding or bile leakage was noted. Next the camera was introduced in the subxiphoid port. An Endopouch bag was placed through the umbilical port and the gallbladder was placed into it. The gallbladder was then removed through the umbilical incision. The camera was then reinserted through the umbilical port. The gallbladder fossa was inspected once more and noted to be hemostatic with no leaking bile. The abdomen was suctioned dry. The 5 mm ports were removed under direct visualization. The umbilical port was then removed and the air was removed from the abdomen. Next using an 0 Vicryl suture the umbilical fascia was closed in a krdnoo-po-oeehr fashion. The umbilical port site was irrigated local anesthetic was administered to all the incisions. All the incisions were closed with interrupted subcuticular 4-0 Monocryl sutures followed by Steri-Strips and dressings. The patient was awoken and taken to PACU in stable condition. Surgical Findings: Wound class IV Complications Complications: No Admit VTE Documentation VTE Mechan Device Prophylaxis: SCD's 11/09/24905 Cosigner Signature (if applicable): CC: Dr. Boston Williamson MD; Dr. Beryl Harrison DO; Dr. Kate Stark MD Signed Normal [facility] Platelet countOrdered By: Dany Ochoa on 11-09-2024 Platelets (Bld) [#/Vol] 356 10*3/uL 150-450 [facility] Potassium measurement (mass/ volume)Ordered By: Evette Ochoa on 11-09-2024 Potassium (Unsp spec) [Mass/Vol] 4.2 mmol/L 3.3-5.1 [facility] Comment on above: Hemolysis present, R esults could be affected. RBC Auto (Bld) [#/Vol]Ordere d By: Evette Ochoa on 11-09-2024 RBC (Bld) [#/Vol] 4.49 10*6/uL Low 4.6-6.2 [facility] Serum creatinine measurement (mass/volume)Ordered By: Evette Ochoa on 11-09-2024 Creatinine [Mass/Vol] 1.05 mg/dL 0.70-1.20 [facility] Serum globulin measurementOr dered By: Evette Ochoa on 11-09-2024 Globulin (S) [Mass/Vol] 2.9 g/dL 2.2-4.2 [facility] Serum glucose measurement (m ass/volume)Ordered By: Evette Ochoa on 11-09-2024 Glucose [Mass/Vol] 92 mg/dL 70-99 [facility] Serum or plasma alanine wells otransferase (ALT) measurementOrdered By: Evette Ochoa on 11-09-2024 ALT [Catalytic activity/Vol] 130 U/L High <47 [facility] Serum or plasma albumin helen urement (mass/volume)Ordered By: Evette Ochoa on 11-09-2024 Albumin [Mass/Vol] 3.4 g/dL Low 3.5-5.0 [facility] Serum or plasma albumin/glob ulin mass ratioOrdered By: Evette Ochoa on 11-09-2024 Albumin/Globulin [Mass ratio] 1.2 {ratio} 0.9-2.4 [facility] Serum or plasma alkaline jg sphatase measurementOrdered By: Evette Ochoa on 11-09-2024 ALP [Catalytic activity/Vol] 323 U/L High 40-129 [facility] Serum or plasma calcium helen urement (mass/volume)Ordered By: Evette Ochoa on 11-09-2024 Calcium [Mass/Vol] 8.7 mg/dL 7.6-11.0 [facility] Serum or plasma urea nitroge n measurement (mass/volume)Ordered By: Evette Ochoa on 11-09-2024 Urea nitrogen [Mass/Vol] 13 mg/dL 4-19 [facility] Sodium levelOrdered By: Stephen garica Gabriela on 11-09-2024 Sodium [Moles/Vol] 136 mmol/L 133-145 [facility] Surgery Specimen Level IIIon 11-09-2024 Surgery Specimen Level III ---- Patient Age/Sex Location Account Attending Physician ---- MICHAEL MEJIA Sr. 58/M MS3 [id number] Dr. Micky Meadows DO ---- Specimen: [id number] Received: 11/09/24 Status: MALACHI Phan Num: [id number] Spec Type: MAURO Lai Dr: Dr. Boston Williamson MD HEADER OPERATION: Laparoscopic cholecystectomy with IOC PRE-OP DIAGNOSIS: Jaundice, concern for choledocholithiasis TISSUE SUBMITTED: A- Gallbladder ---- MICROSCOPIC DIAGNOSIS A. Gallbladder, laparoscopic cholecystectomy: * Acute and chronic cholecystitis with mucosal erosion, hemorrhage and cholelithiasis MICROSCOPIC DESCRIPTION Slides are reviewed. GROSS DESCRIPTION A. Received in formalin labeled with the patient's name and date of . Designated as gallbladder is a 8.3 x 3.7 x 3.4 cm pink-red shaggy and disrupted gallbladder with attached cystic duct (inked black, shaved); the patency is unable to be determined. A lymph node is not present. The mucosa is pink to red and granular with patchy ulcerations and necrosis; sectioning reveals diffusely fibrotic and focally edematous wall with patchy necrosis and a maximum thickness of 0.7 cm. No cholesterolosis is identified. Within the container are a few possible pigmented choleliths, all <0.1 cm. Munitions Worker sections are submitted in 2 cassettes, to include the margin in cassette A1. MS 11/09/2024 [facility]:[id number] ---- Patient Age/Sex Location Account Attending Physician ---- MICHAEL MEJIA Sr. 58/M MS3 [id number] Dr. Micky Meadows, DO ---- Signed (signature on file) Dr. Taylor Jolley, 11/10/24 1256 ---- Normal [facility] Comment on above: Performed By: #### P SUIII ####[facility] [address] [place], [place], [id number] Total proteinOrdered By: Tamar Ochoa on 11-09-2024 Protein [Mass/Vol] 6.3 g/dL 5.9-8.4 [facility] White blood cell (WBC) count Ordered By: Evette Ochoa on 11-09-2024 WBC (Bld) [#/Vol] 8.4 10*3/uL 4.4-11.0 [facility] CBC W/Diff, Automatedon 10-21 Absolute Lymph 1.85 X10 3/uL Normal 0.83-4.51 [facility] Comment on above: Performed By: #### L 100.0100 #### [facility] [address] [place], [place], [id number] Absolute Neut 7.6 X10 3/uL Normal 2.0-7.7 [facility] Comment on above: Performed By: #### L 100.0100 #### [facility] [address] [place], [place], [address] Basophils/100 WBC (Bld) 0.9 % Normal 0-1 [facility] Comment on above: Performed By: #### L 100.0100 #### [facility] [address] [place], [address] Eosinophils/100 WBC (Bld) 2.2 % Normal 0-5 [facility] Comment on above: Performed By: #### L 100.0100 #### [facility] [address] [place], [address] Erythrocyte distribution width (RBC) [Ratio] 14.1 % Normal 11.6-14.6 [facility] Comment on above: Performed By: #### L 100.0100 #### [facility] [address] [place], [address] Hematocrit (Bld) [Volume fraction] 35.9 % Low 40-54 [facility] Comment on above: Performed By: #### L 100.0100 #### [facility] [address] [place], [address] Hemoglobin (Bld) [Mass/Vol] 12.2 g/dL Low 13.0-16.5 [facility] Comment on above: Performed By: #### L 100.0100 #### [facility] [address] [place], [address] IG% 0.600 Normal 0.0-0.9 [facility] Comment on above: Result Comment: IG% - Immature Granulocytes (promyelocytes, myelocytes and metamyelocytes) > 1% indicates that a LEFT SHIFT is Present. Performed By: #### L 100.0100 #### [facility] [address] [place], [address] Lymphocytes/100 WBC (Bld) 17.6 % Low 19-41 [facility] Comment on above: Performed By: #### L 100.0100 #### [facility] [address] [place], [address] MCH (RBC) [Entitic mass] 29.3 pg Normal 27.0-32.0 [facility] Comment on above: Performed By: #### L 100.0100 #### [facility] [address] [place], [address] MCHC (RBC) [Mass/Vol] 34.0 g/dL Normal 32-36 [facility] Comment on above: Performed By: #### L 100.0100 #### [facility] [address] [place], [address] MCV (RBC) [Entitic vol] 86.1 fL Normal 80-94 [facility] Comment on above: Performed By: #### L 100.0100 #### [facility] [address] [place], [address] Monocytes/100 WBC (Bld) 6.9 % Normal 0-10 [facility] Comment on above: Performed By: #### L 100.0100 #### [facility] [address] [place], [address] Neutrophils/100 WBC (Bld) 71.8 % High 47-70 [facility] Comment on above: Performed By: #### L 100.0100 #### [facility] [address] [place], [address] Nucleated RBC (Bld) [#/Vol] 0 10*3/uL Normal 0-5 [facility] Comment on above: Performed By: #### L 100.0100 #### [facility] [address] [place], [address] Platelet mean volume (Bld) [Entitic vol] 8.7 fL Normal 6.2-12.0 [facility] Comment on above: Performed By: #### L 100.0100 #### [facility] [address] [place], [address] Platelets (Bld) [#/Vol] 372 10*3/uL Normal 150-450 [facility] Comment on above: Performed By: #### L 100.0100 #### [facility] [address] [place], [address] RBC (Bld) [#/Vol] 4.17 10*6/uL Low 4.6-6.2 [facility] Comment on above: Performed By: #### L 100.0100 #### [facility] [address] [place], [address] RDW SD 43.8 fl Normal 35.1-43.9 [facility] Comment on above: Performed By: #### L 100.0100 #### [facility] [address] [place], [address] WBC (Bld) [#/Vol] 10.5 10*3/uL Normal 4.4-11.0 [facility] Comment on above: Performed By: #### L 100.0100 #### [facility] [address] [place], [address] Comprehensive Metabolic Prof [facility] 11-08-2024 Albumin [Mass/Vol] 3.2 g/dL Low 3.5-5.0 [facility] Comment on above: Performed By: #### L 500.4050 ####[facility] [address] [place], [address] Albumin/Globulin [Mass ratio] 1.2 {ratio} Normal 0.9-2.4 [facility] Comment on above: Performed By: #### L 500.4050 ####[facility] [address] [place], [address] ALK PHOS 343 U/L High 40-129 [facility] Comment on above: Performed By: #### L 500.4050 ####[facility] [address] [place], [address] ALT [Catalytic activity/Vol] 124 U/L High <=46 [facility] Comment on above: Performed By: #### L 500.4050 ####[facility] [address] [place], [address] AST [Catalytic activity/Vol] 51 U/L High <=37 [facility] Comment on above: Performed By: #### L 500.4050 ####[facility] [address] [place], [address] Bilirubin [Mass/Vol] 3.40 mg/dL High 0.00-1.30 [facility] Comment on above: Performed By: #### L 500.4050 ####[facility] [address] [place], [address] BUN/CRE 12.2 RATIO Normal 10-20 [facility] Comment on above: Performed By: #### L 500.4050 ####[facility] [address] [place], [address] Calcium [Mass/Vol] 8.7 mg/dL Normal 7.6-11.0 [facility] Comment on above: Performed By: #### L 500.4050 ####[facility] [address] [place], [address] Chloride [Moles/Vol] 100 mmol/L Normal 98-108 [facility] Comment on above: Performed By: #### L 500.4050 ####[facility] [address] [place], [address] CO2 [Moles/Vol] 24.8 mmol/L Normal 21.0-32.0 [facility] Comment on above: Performed By: #### L 500.4050 ####[facility] [address] [place], [address] Creatinine [Mass/Vol] 1.02 mg/dL Normal 0.70-1.20 [facility] Comment on above: Performed By: #### L 500.4050 ####[facility] [address] [place], [address] ECRCL 92.85 ml/min Normal 50-250 [facility] Comment on above: Performed By: #### L 500.4050 ####[facility] [address] [place], [address] GAP 12 Normal 5-15 [facility] Comment on above: Performed By: #### L 500.4050 ####[facility] [address] [place], [address] GFR/1.73 sq M.predicted among non-blacks MDRD (S/P/Bld) [Vol rate/Area] 85 mL/min/{1.73_m2} Normal >60 [facility] Comment on above: Result Comment: mL/m in/1.73m2 CKD-EPI Creatinine Equation (2020) Performed By: #### L 500.4050 ####[facility] [address] [place], [address] Globulin (S) [Mass/Vol] 2.7 g/dL Normal 2.2-4.2 [facility] Comment on above: Performed By: #### L 500.4050 ####[facility] [address] [place], [address] Glucose [Mass/Vol] 90 mg/dL Normal 70-99 [facility] Comment on above: Performed By: #### L 500.4050 ####[facility] [address] [place], [address] Potassium [Moles/Vol] 3.8 mmol/L Normal 3.3-5.1 [facility] Comment on above: Performed By: #### L 500.4050 ####[facility] [address] [place], [address] Sodium [Moles/Vol] 136 mmol/L Normal 133-145 [facility] Comment on above: Performed By: #### L 500.4050 ####[facility] [address] [place], [address] T PROT 5.9 g/dL Normal 5.9-8.4 [facility] Comment on above: Performed By: #### L 500.4050 ####[facility] [address] [place], [address] Urea nitrogen [Mass/Vol] 12 mg/dL Normal 4-19 [facility] Comment on above: Performed By: #### L 500.4050 ####[facility] [address] [place], [place], [id number] Electrocardiogram reportOrde red By: Osvaldo Hale on 11-07-2024 EKG study [facility] [address] [place] [address] 12 Lead EKG 11/06/24 0610 MR#: [id number] Acct: [id number] Name: MICHAEL MEJIA Sr. Rep #:[id number] : 1965 58 From: Osvaldo Hale MD Attending Dr: Dr. Micky Meaodws, DO Status: ADM IN Ordering Dr: Manas Cantrell MD Date: 0 11/06/24 Location: [facility] [place] Sex: M C Admitted: 11/05/24 Test Reason : P Blood Pressure : */* mmHG Vent. Rate : 65 BPM Atrial Rate : 65 BPM P-R Int : 146 ms QRS Dur : 102 ms QT Int : 430 ms P-R-T Axes : 63 -51 14 degrees QTcB Int : 447 ms Normal sinus rhythm Left axis deviation Abnormal ECG No previous ECGs available Confirmed by OSVALDO HALE MD ([id number]), makeup editor EVETTE MORRIS ([id number]) on 56:15:10 AM Referred By: TATIANA Confirmed By: OSVALDO HALE MD 11/07/24 0615 Date _ Osvaldo Hale MD CC: Dr. Manas Cantrell MD; Dr. Beryl Harrison DO; Dr. Micky Meadows DO ~ Signed [facility] Work Phone: 12 Lead EKGon 11-06-2024 12 Lead EKG [facility] [address] [place] [address] 12 Lead EKG 11/06/24 0610 MR#: [id number] Acct: [id number] Name: MICHAEL MEJIA Sr. Rep #: [id number] : 1965 58 From: Osvaldo Hale MD Attending Dr: Dr. Micky Meadows DO Status: A DM IN Ordering Dr: Manas Cantrell MD Date: 11/06/24 Location: [facility] [place] Sex: M C Admitted: 11/05/24 Test Reason : P Blood Pressure : */* mmHG Vent. Rate : 65 BPM Atrial Rate : 65 BPM P-R Int : 146 ms QRS Dur : 102 ms QT Int : 430 ms P-R-T Axes : 63 -51 14 degrees QTcB Int : 447 ms Normal sinus rhythm Left axis deviation Abnormal ECG No previous ECGs available Confirmed by OSVALDO HALE MD ([id number]), makeup editor EVETTE MORRIS ([id number]) on 11/07/2024 6:15:10 AM Referred By: TATIANA Confirmed By: OSVALDO HALE MD 11/07/24 0615 Date Osvaldo Hale MD CC: Dr. Manas Cantrell MD; Dr. Beryl Harrison DO; Dr. Micky Meadows DO Signed Normal [facility] Abdomen/Pelvis W IV Cont ONL Yon 11-06-2024 Abdomen/Pelvis W IV Cont ONLY [facility] Services [address] [place] [address] Abdomen/Pelvis W IV Cont ONLY MR#: [id number] Acct: [id number] Name: MICHAEL MEJIA Sr. Rep #: [id number] : 1965 M 58 From: Edwin tucker MD PCP: Dr. Beryl Harrison DO Status: ADM IN Study: Abdomen/Pelvis W IV Cont ONLY Date of Exam: Exam# [id number] Ordering Dr: Tim Murray DO PROCEDURE: ABDOMEN/PELVIS W IV CONT ONLY 11/06/2024 REASON FOR EXAM: OBSTRUCTIVE JAUNDICE TECHNIQUE: ABDOMEN/PELVIS W IV CONT ONLY Coronal and Sagittal reconstruction series were provided. CONTRAST: Isovue 370 VOLUME: 100 mL One or more dose reduction techniques were used (e.g., Automated exposure control, adjustment of the mA and/or kV according to patient size, use of iterative reconstruction technique. RADIATION DOSE SUMMARY: CTDlvol: 17.25 mGy DLP: 1189.17 mGycm COMPARISON: None FINDINGS: Lung bases: The lung bases are clear. There is evidence of coronary artery calcification. Liver: There is evidence of intrahepatic biliary ductal dilatation. There is a 15.9 mm cyst in the central portion of the right lobe of the liver. A 12 mm cyst is also seen along the inferior aspect of the right lobe of the liver. Gallbladder: The gallbladder is distended. The common bile duct is dilated down to the region of the ampulla of Vater. Proximally, it 15 mm distally, it measures 8.3 mm. There is also evidence of dilatation of the proximal portion of the pancreatic duct. A mass in the region of the ampulla of Vater should be ruled out. Spleen: Normal size. Pancreas: Dilatation of the pancreatic duct in the region of the head of the pancreas. Adrenals: Unremarkable Kidneys: Normal renal sizes. No hydronephrosis. Bladder: Unremarkable Mild central prostatic calcifications. Bowel: Colonic diverticulosis without diverticulitis. Appendix: Status post appendectomy. Lymph nodes: Unremarkable. Vasculature: Mild diffuse atherosclerotic calcifications are noted. Peritoneum / Retroperitoneum: Small umbilical hernia containing fat. Bones: Mild degenerative changes of the lumbar spine CT/Abdomen/Pelvis W IV Cont ONLY IMPRESSION: Dilated intrahepatic biliary ducts as well as the common bile duct down to the region of the ampulla of Vater. Dilatation of the pancreatic duct at the level of the head of the pancreas. An obstructive mass/lesion should be ruled out in the region of the ampulla Vater. ERCP recommended. Headache cyst dilatation of the gallbladder. Reading Location: [id number] CC: Dr. Beryl Harrison, ; Tim Murray, Biological Chemist: Signed Normal [facility] CBC W/Diff, Automatedon 10-20 Absolute Lymph 1.52 X10 3/uL Normal 0.83-4.51 [facility] Comment on above: Performed By: #### L 500.4050, L100.0100 #### [facility] [address] [place], [address] Absolute Neut 7.3 X10 3/uL Normal 2.0-7.7 [facility] Comment on above: Performed By: #### L 500.4050, L100.0100 #### [facility] [address] [place], [address] Basophils/100 WBC (Bld) 1.0 % Normal 0-1 [facility] Comment on above: Performed By: #### L 500.4050, L100.0100 #### [facility] [address] [place], [address] Eosinophils/100 WBC (Bld) 12.4 % High 0-5 [facility] Comment on above: Performed By: #### L 500.4050, L100.0100 #### [facility] [address] [place], [address] Erythrocyte distribution width (RBC) [Ratio] 13.2 % Normal 11.6-14.6 [facility] Comment on above: Performed By: #### L 500.4050, L100.0100 #### [facility] [address] [place], [address] Hematocrit (Bld) [Volume fraction] 38.7 % Low 40-54 [facility] Comment on above: Performed By: #### L 500.4050, L100.0100 #### [facility] [address] [place], [address] Hemoglobin (Bld) [Mass/Vol] 12.9 g/dL Low 13.0-16.5 [facility] Comment on above: Performed By: #### L 500.4050, L100.0100 #### [facility] [address] [place], [address] IG% 0.500 Normal 0.0-0.9 [facility] Comment on above: Result Comment: IG% - Immature Granulocytes (promyelocytes, myelocytes and metamyelocytes) > 1% indicates that a LEFT SHIFT is Present. Performed By: #### L 500.4050, L100.0100 #### [facility] [address] [place], [address] Lymphocytes/100 WBC (Bld) 13.1 % Low 19-41 [facility] Comment on above: Performed By: #### L 500.4050, L100.0100 #### [facility] [address] [place], [address] MCH (RBC) [Entitic mass] 28.6 pg Normal 27.0-32.0 [facility] Comment on above: Performed By: #### L 500.4050, L100.0100 #### [facility] [address] [place], [address] MCHC (RBC) [Mass/Vol] 33.3 g/dL Normal 32-36 [facility] Comment on above: Performed By: #### L 500.4050, L100.0100 #### [facility] [address] [place], [address] MCV (RBC) [Entitic vol] 85.8 fL Normal 80-94 [facility] Comment on above: Performed By: #### L 500.4050, L100.0100 #### [facility] [address] [place], [address] Monocytes/100 WBC (Bld) 9.6 % Normal 0-10 [facility] Comment on above: Performed By: #### L 500.4050, L100.0100 #### [facility] [address] [place], [address] Neutrophils/100 WBC (Bld) 63.4 % Normal 47-70 [facility] Comment on above: Performed By: #### L 500.4050, L100.0100 #### [facility] [address] [place], [address] Nucleated RBC (Bld) [#/Vol] 0 10*3/uL Normal 0-5 [facility] Comment on above: Performed By: #### L 500.4050, L100.0100 #### [facility] [address] [place], [address] Platelet mean volume (Bld) [Entitic vol] 8.9 fL Normal 6.2-12.0 [facility] Comment on above: Performed By: #### L 500.4050, L100.0100 #### [facility] [address] [place], [address] Platelets (Bld) [#/Vol] 363 10*3/uL Normal 150-450 [facility] Comment on above: Performed By: #### L 500.4050, L100.0100 #### [facility] [address] [place], [address] RBC (Bld) [#/Vol] 4.51 10*6/uL Low 4.6-6.2 [facility] Comment on above: Performed By: #### L 500.4050, L100.0100 #### [facility] [address] [place], [address] RDW SD 41.1 fl Normal 35.1-43.9 [facility] Comment on above: Performed By: #### L 500.4050, L100.0100 #### [facility] [address] [place], [address] WBC (Bld) [#/Vol] 11.6 10*3/uL High 4.4-11.0 [facility] Comment on above: Performed By: #### L 500.4050, L100.0100 #### [facility] [address] [place], [address] Comprehensive Metabolic Prof [facility] 11-06-2024 Albumin [Mass/Vol] 3.3 g/dL Low 3.5-5.0 [facility] Comment on above: Performed By: #### L 500.4050, L100.0100 #### [facility] [address] [place], [address] Albumin/Globulin [Mass ratio] 1.1 {ratio} Normal 0.9-2.4 [facility] Comment on above: Performed By: #### L 500.4050, L100.0100 #### [facility] [address] [place], [address] ALK PHOS 514 U/L High 40-129 [facility] Comment on above: Performed By: #### L 500.4050, L100.0100 #### [facility] [address] [place], [address] ALT [Catalytic activity/Vol] 229 U/L High <=46 [facility] Comment on above: Performed By: #### L 500.4050, L100.0100 #### [facility] [address] [place], [address] AST [Catalytic activity/Vol] 183 U/L High <=37 [facility] Comment on above: Performed By: #### L 500.4050, L100.0100 #### [facility] [address] [place], [address] Bilirubin [Mass/Vol] 14.00 mg/dL High 0.00-1.30 [facility] Comment on above: Performed By: #### L 500.4050, L100.0100 #### [facility] [address] [place], [address] BUN/CRE 7.9 RATIO Low 10-20 [facility] Comment on above: Performed By: #### L 500.4050, L100.0100 #### [facility] [address] [place], [address] Calcium [Mass/Vol] 8.7 mg/dL Normal 7.6-11.0 [facility] Comment on above: Performed By: #### L 500.4050, L100.0100 #### [facility] [address] [place], [address] Chloride [Moles/Vol] 98 mmol/L Normal 98-108 [facility] Comment on above: Performed By: #### L 500.4050, L100.0100 #### [facility] [address] [place], [address] CO2 [Moles/Vol] 21.0 mmol/L Normal 21.0-32.0 [facility] Comment on above: Performed By: #### L 500.4050, L100.0100 #### [facility] [address] [place], [address] Creatinine [Mass/Vol] 1.18 mg/dL Normal 0.70-1.20 [facility] Comment on above: Result Comment: Icte kaylin present, Results may be affected. Performed By: #### L 500.4050, L100.0100 #### [facility] [address] [place], [address] ECRCL 80.26 ml/min Normal 50-250 [facility] Comment on above: Performed By: #### L 500.4050, L100.0100 #### [facility] [address] [place], [address] GAP 14 Normal 5-15 [facility] Comment on above: Performed By: #### L 500.4050, L100.0100 #### [facility] [address] [place], [address] GFR/1.73 sq M.predicted among non-blacks MDRD (S/P/Bld) [Vol rate/Area] 71 mL/min/{1.73_m2} Normal >60 [facility] Comment on above: Result Comment: mL/m in/1.73m2 CKD-EPI Creatinine Equation (2020) Performed By: #### L 500.4050, L100.0100 #### [facility] [address] [place], [address] Globulin (S) [Mass/Vol] 2.9 g/dL Normal 2.2-4.2 [facility] Comment on above: Performed By: #### L 500.4050, L100.0100 #### [facility] [address] [place], [address] Glucose [Mass/Vol] 109 mg/dL High 70-99 [facility] Comment on above: Performed By: #### L 500.4050, L100.0100 #### [facility] [address] [place], [address] Potassium [Moles/Vol] 3.7 mmol/L Normal 3.3-5.1 [facility] Comment on above: Performed By: #### L 500.4050, L100.0100 #### [facility] [address] [place], [address] Sodium [Moles/Vol] 133 mmol/L Normal 133-145 [facility] Comment on above: Performed By: #### L 500.4050, L100.0100 #### [facility] [address] [place], [address] T PROT 6.3 g/dL Normal 5.9-8.4 [facility] Comment on above: Performed By: #### L 500.4050, L100.0100 #### [facility] [address] [place], [address] Urea nitrogen [Mass/Vol] 9 mg/dL Normal 4-19 [facility] Comment on above: Performed By: #### L 500.4050, L100.0100 #### [facility] [address] [place], [address] Consultation - Surgicalon Consultation - Surgical [facility] Medical Records Department [address] [place] [address] Consultation - Surgical 11/06/24 0725 MR#: [id number] Acct: [id number] Name: MICHAEL MEJIA Sr. Rep #: [id number] : 1965 58 From: Boston Williamson MD PCP: Dr. Beryl Harrison, DO Status:ADM IN Location: [address] Assessment Plan Assessment/Plan (1) Jaundice: PLAN: The patient is obstructive jaundice. I believe Dr. Murray is ordering a repeat CT scan to evaluate the bile duct. I will be available to remove the patient's gallbladder after obstruction is been dealt with. Boston Williamson MD Pager: [facility] [address] [place], [place] [address], [address] [place] [address] Office: HPI Consult Data Date of Consult: 11/06/24 HPI Narrative HPI Narrative: MICHAEL MEJIA, is a 58 M who presents with jaundice. Patient has been having some epigastric pain. This is been going on for several weeks. Patient has CT scan that showed thickening of the gallbladder and an ultrasound showed stones. There is no pancreatic mass or biliary mass identified. The patient's bilirubin is markedly elevated. [facility] Medical History Depression Anxiety HTN (hypertension) Appendicitis Home Medications ???Medication ???Instructions ???Recorded ???Last Taken ???Type cetirizine 10 mg tablet (Allergy 10 mg PO DAILY allergies 11/05/24 Unknown History Relief (cetirizine)) losartan 50 mg tablet 50 mg PO DAILY blood pressure 10/20 10/13 Unknown History pantoprazole 40 mg tablet,delayed 40 mg PO BID gerd 11/05/24 Unknow n History release sertraline 100 mg tablet 100 mg PO DAILY anxiety 11/05/24 U nknown History Allergy/AdvReac Type Severity Reaction Status Date / Time No Known Allergies Allergy Verified 09/13/20 11:27 Surgical History H/O sinus surgery H/O hernia repair Social History Smoking Status: Former smoker ROS Constitutional Constitutional: Denies anorexia, chills or fatigue Eyes Eyes: Denies blurry vision ENT HEENT: Denies abnormal hearing Cardiovascular Cardiovascular: Denies chest pain Respiratory/Chest Respiratory/Chest: Denies cough or dyspnea Gastrointestinal Gastrointestinal: Reports abdominal pain; Denies melena, nausea or rectal bleeding Genitourinary Genitourinary: Denies change in urinary stream Musculoskeletal Musculoskeletal: Denies abnormal gait Integumentary Integumentary: Reports jaundice Neurologic Neurologic: Denies abnormal gait Physical Exam Const alert and oriented x3 HEENT normocephalic Eyes PERRL Resp normal respiratory effort Cardio Rate: regular rate Rhythm: regular rhythm GI soft to palpation Palpation: tender epigastric Extremity normal to inspection Lab / Micro Data 11/06/24 05:17 11/06/24 05:17 Labs: Laboratory Results - last 24 hr 11/06/24 05:17: WBC 11.6 H, RBC 4.51 L, Hgb 12.9 L, Hct 38.7 L, MCV 85.8, MCH 28.6, MCHC 33.3, RDW Std Deviation 41.1, RDW Coeff of Selene 13.2, Plt Count 363, MPV 8.9, Immature Gran % (Auto) 0.500, Neut % (Auto) 63.4, Lymph % (Auto) 13.1 L, Ross % (Auto) 9.6, Eos % (Auto) 12.4 H, Baso % (Auto) 1.0, Absolute Neuts (auto) 7.3, Absolute Lymphs (auto) 1.52, Nucleated RBC % 0, Sodium 133, Potassium 3.7, Chloride 98, Carbon Dioxide 21.0, Anion Gap 14, BUN 9, Creatinine 1.18, Estim Creat Clear Calc 80.26, Est GFR (MDRD) Non-Af 71, BUN/Creatinine Ratio 7.9 L, Glucose 109 H, Calcium 8.7, Total Bilirubin 14.00 H, AST 183 H, ALT 229 H, Alkaline Phosphatase 514 H, Total Protein 6.3, A lbumin 3.3 L, Globulin 2.9, Albumin/Globulin Ratio 1.1 11/06/24 0727 Cosigner Signature (if applicable): CC: Dr. Beryl Harrison, Signed Normal [facility] ERCP Biliary/Pancreason 10-20 ERCP Biliary/Pancreas [facility] [address] [place], [place] [address] ERCP Biliary/Pancreas MR#: [id number] Acct: [id number] Name: MICHAEL MEJIA Lesley Serrano. Rep #: [id number] : 1965 M 58 From: Benja Painting PCP: Dr. Beryl Harrison DO Status: ADM IN Study: ERCP Biliary/Pancreas Date of Exam: 11/06/24 Exam# [id number] Ordering Dr: Tim Murray DO PROCEDURE: ERCP BILIARY/PANCREAS; O.R. FLUORO FOR C-ARM 11/06/2024 REASON FOR EXAM: ABD PAIN TECHNIQUE: ERCP BILIARY/PANCREAS; O.R. FLUORO FOR C-ARM. Fluoroscopy time: 90.7 seconds. Dose: 50.26 mGy. COMPARISON: CT examination 11/06/2024. RAD/ERCP Biliary/Pancreas IMPRESSION: Intraoperative fluoroscopy was performed for ERCP. Additionally, 13 fluoroscopic images were obtained. Reading Location: [place] [address] CC: Dr. Beryl Harrison DO; Tim Murray DO Biological Chemist: Signed Normal [facility] ERCP Reporton 11-06-2024 ERCP Report [facility] Medical Records Department [address] [place] [address] ERCP Report MR#: [id number] Acct: [id number] Name: MICHAEL MEJIA . Rep #: [id number] : 1965 58 From: Tim Murray DO PCP: Dr. Beryl Harrison DO Status:ADM IN Patient Name: Michael Mejia Procedure Date: 11/06/2024 11:08 AM Date of : 1965 Age: 58 Procedure: ERCP Indications: Common bile duct stone(s), Abdominal pain of suspected biliary origin, Suspected ascending cholangitis, Jaundice, Elevated liver enzymes Providers: Tim Murray DO Medicines: Monitored Anesthesia Care Patient Profile: This is a 58 year old male. Refer to note in patient chart for documentation of history and physical. This patient has no history of previous ERCP. This patient has no history of surgical alteration of the upper digestive tract anatomy. Complications: No immediate complications. Procedure: Pre-Anesthesia Assessment: - Prior to the procedure, a History and Physical was performed, and patient medications and allergies were reviewed. The patient is competent. The risks and benefits of the procedure and the sedation options and risks were discussed with the patient. All questions were answered and informed consent was obtained. Patient identification and proposed procedure were verified by the physician in the pre-procedure area. Mental Status Examination: alert and oriented. Airway Examination: normal oropharyngeal airway and neck mobility. Respiratory Examination: clear to auscultation. CV Examination: normal. Prophylactic Antibiotics: The patient does not require prophylactic antibiotics. Prior Anticoagulants: The patient has taken no anticoagulant or antiplatelet agents except for NSAID medication. ASA Grade Assessment: II - A patient with mild systemic disease. After reviewing the risks and benefits, the patient was deemed in satisfactory condition to undergo the procedure. The anesthesia plan was to use monitored anesthesia care (MAC). Immediately prior to administration of medications, the patient was re-assessed for adequacy to receive sedatives. The heart rate, respiratory rate, oxygen saturations, blood pressure, adequacy of pulmonary ventilation, and response to care were monitored throughout the procedure. The physical status of the patient was re-assessed after the procedure. After obtaining informed consent, the scope was passed under direct vision. Throughout the procedure, the patient's blood pressure, pulse, and oxygen saturations were monitored continuously. The Duodenoscope was introduced through the mouth, and advanced to the duodenum and used to inject contrast into the bile duct. The ERCP was accomplished without difficulty. The patient tolerated the procedure well. Scope In: 12:17:03 PM Scope Out: 12:29:41 PM Total Procedure Duration Time 0 hours 12 minutes 38 seconds Findings: The senior merchandiser film was normal. The esophagus was successfully intubated under direct vision. The scope was advanced to a normal major papilla in the descending duodenum without detailed examination of the pharynx, larynx and associated structures, and upper GI tract. The upper GI tract was grossly normal. A long 0.025 inch Jagwire was passed into the biliary tree. The short-nosed traction sphincterotome was passed over the guidewire and the bile duct was then deeply cannulated. Contrast was injected. I personally interpreted the bile duct images. There was brisk flow of contrast through the ducts. Image quality was adequate. Contrast extended to the main bile duct. Contrast extended to the cystic duct. Contrast extended to the gallbladder. Contrast extended to the bifurcation. Contrast extended to the entire biliary tree. Opacification of the entire opacified area, main bile duct, common bile duct, cystic duct, gallbladder, common hepatic duct, hepatic duct bifurcation, left and right hepatic ducts with secondary or tertiary branches of the intrahepatic ducts (Bismuth IV), left and right hepatic ducts and all intrahepatic branches and entire biliary tree was successful. The maximum diameter of the ducts was 15 mm. The lower third of the main bile duct and common hepatic duct contained three stones, the largest of which was 6 mm in diameter. The main bile duct, common bile duct, common hepatic duct, hepatic duct bifurcation and left and right hepatic ducts with secondary or tertiary branches of the intrahepatic ducts (Bismuth IV) were diffusely dilated, with a stone causing an obstruction. The largest diameter was 13 mm. A 5 mm biliary sphincterotomy was made with a traction (standard) sphincterotome using ERBE electrocautery. There was no post-sphincterotomy bleeding. The biliary tree was swept with a 12 mm balloon starting at the upper third of the main bile duct (more content not included)... Normal [facility] MR/CON.PCM.GIon 11-06-2024 MR/CON.PCM.GI [facility] Medical Records Department [address] [place] [address] Consultation - GI 11/06/24 1140 MR#: [id number] Acct: [id number] Name: MICHAEL MEJIA Sr. Rep #: [id number] : 1965 58 From: Tim uMrray DO PCP: Dr. Beryl Harrison, DO Status:ADM IN [facility] Consult Data Date of Consult: 11/06/24 HPI Narrative Reason for Consultation: Obstructive jaundice HPI Narrative: MICHAEL MEJIA, is a 58 M who presents as a transfer from an outside hospital for obstructive jaundice. He admits to developing abdominal pain approximately 2 weeks ago. 2 weeks ago he had a CT abdomen and pelvis with contrast which showed thickening of the gallbladder but no other acute abnormalities. His pain got progressively worse. 4 days ago he had an ultrasound that showed common bile duct of 11 mm, in the ED today his bilirubin was found to be 15 and imaging showed gallbladder sludge and stones. Patient suspected to have choledocholithiasis, given the above he was given antibiotics and [facility] contacted for transfer. Upon arrival his bilirubin was 14, AST of 134, AST 150 and alkaline phosphatase of 250. [facility] Medical History Depression Anxiety HTN (hypertension) Appendicitis Home Medications ???Medication ???Instructions ???Recorded ???Last Taken ???Type cetirizine 10 mg tablet (Allergy 10 mg PO DAILY allergies 11/05/24 Unknown History Relief (cetirizine)) losartan 50 mg tablet 50 mg PO DAILY blood pressure 10/20 10/13 Unknown History pantoprazole 40 mg tablet,delayed 40 mg PO BID gerd 11/05/24 Unknow n History release sertraline 100 mg tablet 100 mg PO DAILY anxiety 11/05/24 U nknown History Allergy/AdvReac Type Severity Reaction Status Date / Time azithromycin (From Zithromax) Allergy Severe Rash Verified 11/06/24 11:19 Surgical History H/O sinus surgery H/O hernia repair Social History Smoking Status: Former smoker ROS Constitutional Constitutional: Denies fatigue, fever(s), poor appetite, weight gain or weight loss Gastrointestinal Gastrointestinal: Denies belching, bloating, change in bowel habits, change in stool character, chewing difficulty, coffee ground emesis, constipation, cramping, diarrhea, dyspepsia, dysphagia, early satiety, excessive flatus, fecal incontinence, heartburn, hematemesis, hematochezia, hemorrhoids, loose stools, melena, nausea, odynophagia, rectal bleeding, tenesmus, vomiting or weight changes Physical Exam Narrative General: Alert, oriented, no apparent distress HEENT: Atraumatic, normocephalic Eyes: Some scleral icterus appreciated, normal conjunctiva, extraocular movements grossly intact Neck: Supple Respiratory: Clear to auscultation bilaterally, normal respiratory effort Cardiovascular: Regular rate and rhythm GI: Soft, somewhat protuberant, did not have any significant tenderness on my evaluation with no rebound, guarding, or rigidity Extremities: No edema Musculoskeletal: Moving all extremities Neuro: No overt focal neurological deficits Skin: No rashes appreciated the patient does appear visually jaundice Psych: Cooperative Lab / Micro Data 11/06/24 05:17 11/06/24 05:17 Labs: Laboratory Results - last 24 hr 11/06/24 05:17: WBC 11.6 H, RBC 4.51 L, Hgb 12.9 L, Hct 38.7 L, MCV 85.8, MCH 28.6, MCHC 33.3, RDW Std Deviation 41.1, RDW Coeff of Selene 13.2, Plt Count 363, MPV 8.9, Immature Gran % (Auto) 0.500, Neut % (Auto) 63.4, Lymph % (Auto) 13.1 L, Ross % (Auto) 9.6, Eos % (Auto) 12.4 H, Baso % (Auto) 1.0, Absolute Neuts (auto) 7.3, Absolute Lymphs (auto) 1.52, Nucleated RBC % 0, Sodium 133, Potassium 3.7, Chloride 98, Carbon Dioxide 21.0, Anion Gap 14, BUN 9, Creatinine 1.18, Estim Creat Clear Calc 80.26, Est GFR (MDRD) Non-Af 71, BUN/Creatinine Ratio 7.9 L, Glucose 109 H, Calcium 8.7, Total Bilirubin 14.00 H, AST 183 H, ALT 229 H, Alkaline Phosphatase 514 H, Total Protein 6.3, A lbumin 3.3 L, Globulin 2.9, Albumin/Globulin Ratio 1.1 Imaging Radiology Impression Abdomen/Pelvis CT 11/06/24 06:40 IMPRESSION: Dilated intrahepatic biliary ducts as well as the common bile duct down to the region of the ampulla of Vater. Dilatation of the pancreatic duct at the level of the head of the pancreas. An obstructive mass/lesion should be ruled out in the region of the ampulla Vater. ERCP recommended. Headache cyst dilatation of the gallbladder. Reading Location: [id number] Assessment Plan Assessment/Plan (1) Choledocholithiasis: (2) Jaundice: PLAN: 58-year-old gentleman with obstructive jaundic (more content not included)... Normal [facility] Medical Records Department [address] [place] [address] Provation Physician Letter MR#: [id number] Acct: [id number] Name: MICHAEL MEJIA Sr. Rep #: [id number] : 1965 58 From: Tim Murray DO PCP: Dr. Beryl Harrison DO Status:ADM IN 11/06/2024 Beryl Harrison Do Re : ERCP procedure for Michael Mejia Dear Dr. Harrison This procedure was performed on Wednesday, November 06, 2024. My impressions and recommendations are as follows: Impressions : - The hepatic duct system (Bismuth IV), entire main bile duct, common bile duct and common hepatic duct were dilated, with a stone causing an obstruction. - Choledocholithiasis was found. Complete removal was accomplished by biliary sphincterotomy and balloon extraction. - A biliary sphincterotomy was performed. - The biliary tree was swept and pus, mucus and debris were found. - One temporary stent was placed into the common bile duct. Recommendations : My findings are described in the full procedure note, which is enclosed. If I can be of further assistance, please feel free to contact me at . Sincerely, Tim Murray DO 11/06/2024 12:39:40 PM This report has been signed electronically. 11/06/24 1240 Date Tim Mclaughlin Signature: Date (if indicated) CC: Dr. Boston Williamson MD; Dr. Beryl Harrison DO; Dr. Micky Meadows DO; Dr. Kate Stark MD Date Dictated: 11/06/24 1108 Date Transcribed: Biological Chemist: PHILLIP Signed [facility] MR/POSTOP.[facility] 11-06-2024 MR/POSTOP.[facility] Medical Records Department [address] [place] [address] Anesthesia Postop Eval I 11/06/24 1300 MR#: [id number] Acct: [id number] Name: MICHAEL MEJIA Sr. Rep #: [id number] : 1965 58 From: Hank Reese PCP: Dr. Beryl Harrison DO Status:ADM IN Y Race: C Location: [facility] MG312-9 Anesthesia: Postop Eval I Current Vital Signs Temperature: 97.9 F Pulse Rate: 92 Blood Pressure: 112/87 Respiratory Rate: 16 Pulse Ox: 93 Oxygen Delivery Method: Room Air Assessment Airway patent: Yes Spontaneous unlabored respirations: Yes Mental status: Awake nausea: No Vomiting: No Anesthesia Complication: No Fluid Hydration Crystalloid volume administer (ml): 600 Total IV fluid infused: 600 Progress Note Anesthesia document: Postop Eval 1 completed: Yes 11/06/24 1301 Date Hank Juarez Signature: Date CC: Signed Normal [facility] MR/[id number] 11-06-2024 MR/POSTOPAN2 [facility] Medical Records Department [address] [place] [address] Anesthesia Postop Eval II 11/06/24 1346 MR#: [id number] Acct: [id number] Name: MATEUSZMICHAEL Sr. Rep #: [id number] : 1965 58 From: Vinita Goss CRNA PCP: Dr. Beryl Harrison, DO Status:ADM IN Y Race: C Location: [facility] IG654-2 Anesthesia Postop Eval I Sum Postop Eval Completion status Anesthesia document: Postop Eval 1 completed: Yes Anesthesia Postop Eval I Summary Anesthesia Postop Eval I Summary: Anesthesia Postop Eval I: Assessment Summary Airway patent Yes 11/06/24 13:01 [email or web address] Spontaneous unlabored Yes 11/06/24 13:01 [email or web address] respirations Mental status Awake 11/06/24 13:01 [email or web address] nausea No 11/06/24 13:01 [email or web address] Vomiting No 11/06/24 13:01 [email or web address] Anesthesia Postop Eval I: Fluid Summary Crystalloid volume administer 600 11/06/24 13:01 [email or web address] (ml) Colloids volume administered ( ml) Blood Product volume administered (ml) Total IV fluid infused 600 11/06/24 13:01 [email or web address] Anesthesia Postop Eval I: Summary Notes Anesthesia Complication No 11/06/24 13:01 [email or web address] Anesthesia Complication Comment: Post-operative progress note Anesthesia: Postop Eval II Evaluation Mental status: Awake and Calm Pain Level: 1 nausea: No Vomiting: No Complications Anesthesia Complication: No 11/06/24 1346 Date Vinita Whitmanigner Signature: Date CC: Signed Normal [facility] O.R. Fluoro for C-Gutierrez 10-20 O.R. Fluoro for C-Arm [facility] Imaging Services [address] [place] [address] [id number] O.R. Fluoro for C-Arm MR#: [id number] Acct: [id number] Name: MATEUSZMICHAEL Lesley Serrano. Rep #: [id number] : 1965 M 58 From: Benja Painting PCP: Dr. Beryl Harrison DO Status: ADM IN Study: O.R. Fluoro for C-Arm Date of Exam: 11/06/24 Exam# [id number] Ordering Dr: Tim Murray DO PROCEDURE: ERCP BILIARY/PANCREAS; O.R. FLUORO FOR C-ARM 11/06/2024 REASON FOR EXAM: ABD PAIN TECHNIQUE: ERCP BILIARY/PANCREAS; O.R. FLUORO FOR C-ARM. Fluoroscopy time: 90.7 seconds. Dose: 50.26 mGy. COMPARISON: CT examination 11/06/2024. RAD/O.R. Fluoro for C-Arm IMPRESSION: Intraoperative fluoroscopy was performed for ERCP. Additionally, 13 fluoroscopic images were obtained. Reading Location: [place] [address] CC: Dr. Beryl Harrison DO; Tim Murray DO Biological Chemist: Signed [facility] CBC + DIFFon 11-05-2024 Baso # 0.04 x10EE3/UL Normal 0.00 - 0.10 [facility] Comment on above: Performed By: #### 2 13636 #### [facility],[address] [place] [address] Basophils/100 WBC (Bld) 0.4 % Normal 0.0 - 2.0 [facility] Comment on above: Performed By: #### 2 43341 #### [facility],[address] [place] [address] CBC + DIFF Normal [facility] Comment on above: Result Comment: CBC- COMPLETE BLOOD COUNT Performed By: #### 2 60128 #### [facility],[address] [place] [address]67[address] EO # 0.58 x10EE3/UL High 0.00 - 0.50 [facility] Comment on above: Performed By: #### 2 19691 #### [facility],[address] [place] [address]77 Eosinophils/100 WBC (Bld) 5.2 % Normal 0.0 - 7.0 [facility] Comment on above: Performed By: #### 2 87984 #### [facility],[address] [place] [address] 58271 Erythrocyte distribution width (RBC) [Ratio] 13.5 % Normal 12.0 - 15.6 [facility] Comment on above: Performed By: #### 2 92049 #### [facility],[address] [place] [address] 93442 Hematocrit (Bld) [Volume fraction] 44.4 % Normal 40.0 - 52.0 [facility] Comment on above: Performed By: #### 2 01522 #### [facility],[address] [place] [address] 06593 Hemoglobin (Bld) [Mass/Vol] 15.9 g/dL Normal 13.0 - 17.5 [facility] Comment on above: Performed By: #### 2 96405 #### [facility],[address] [place] [address] 44788 Lymph # 1.46 x10EE3/UL Normal 0.80 - 2.80 [facility] Comment on above: Performed By: #### 2 26077 #### [facility],[address] [place] [address] 32558 Lymphocytes/100 WBC (Bld) 13.2 % Low 20.0 - 45.0 [facility] Comment on above: Performed By: #### 2 47852 #### [facility],[address] [place] [address] 06075 MANUAL DIFF N/A Normal [facility] Comment on above: Performed By: #### 2 46672 #### [place] [id number] MCH (RBC) [Entitic mass] 31 pg Normal 27 - 33 [facility] Comment on above: Performed By: #### 2 80669 #### [place] [address] MCHC 36 X10 3 Normal 32 - 36 [facility] Comment on above: Performed By: #### 2 57973 #### [address] [address] MCV (RBC) [Entitic vol] 86 fL Normal 81 - 98 [facility] Comment on above: Performed By: #### 2 02572 #### [address] [address] Ross # 0.80 x10EE3/UL Normal 0.20 - 1.00 [facility] Comment on above: Performed By: #### 2 43820 #### [address] [address] MONOS % 7.2 % Normal 0.0 - 10.0 [facility] Comment on above: Performed By: #### 2 31425 #### [facility],[address] [place] [address] 66487 Morphology Cole (Bld) [Interp] N/A Normal [facility] Comment on above: Performed By: #### 2 88081 #### [facility],[address] [place] [address]37 Neut # 8.22 x10EE3/UL High 1.50 - 7.10 [facility] Comment on above: Performed By: #### 2 78694 #### [facility],[address] [place] [address] 56141 Neutrophils/100 WBC (Bld) 74.1 % Normal 46.0 - 76.0 [facility] Comment on above: Performed By: #### 2 56514 #### [facility],[address] [place] [address] 30928 PLATELET 426 x10EE3/UL Normal 150 - 450 [facility] Comment on above: Performed By: #### 2 34883 #### [address] [address] Platelet mean volume (Bld) [Entitic vol] 6.8 fL Normal 6.4 - 10.5 [facility] Comment on above: Result Comment: AUTO MATED DIFFERENTIAL Performed By: #### 2 93581 #### [facility],[address] [place] [address] 82824 RBC 5.14 x 10EE6/UL Normal 4.50 - 6.00 [facility] Comment on above: Performed By: #### 2 60565 #### [facility],[address] [place] [address]012 WBC 11.1 x 10EE3/UL High 4.5 - 10.8 [facility] Comment on above: Performed By: #### 2 38050 #### [facility],[address] [place] [address]89 CMP with eGFRon 11-05-2024 AGE 58 years Normal [facility] Comment on above: Performed By: #### 2 01337 #### [address] [address] Albumin [Mass/Vol] 3.2 g/dL Low 3.4 - 5.0 [facility] Comment on above: Performed By: #### 2 95570 #### [facility],[address] [place] [address] 38460 Albumin/Globulin [Mass ratio] 0.7 {ratio} Low 0.9 - 1.6 [facility] Comment on above: Performed By: #### 2 05248 #### [facility],[address] [place] [address] 58472 ALK PHOS 599 U/L High 46 - 116 [facility] Comment on above: Performed By: #### 2 62762 #### [facility],[address] [place] [address] 66071 ALT [Catalytic activity/Vol] 332 U/L High 16 - 63 [facility] Comment on above: Performed By: #### 2 46895 #### [address] [address] Anion gap [Moles/Vol] 15 mmol/L Normal 10 - 20 [facility] Comment on above: Performed By: #### 2 84764 #### [address] [address] AST [Catalytic activity/Vol] 226 U/L High 15 - 37 [facility] Comment on above: Performed By: #### 2 12074 #### [facility],[address] [place] [address] 76021 B/C RATIO 7 ratio Normal 0 - 30 [facility] Comment on above: Performed By: #### 2 29210 #### [facility],[address] [place] [address] 49063 Bilirubin [Mass/Vol] 15.4 mg/dL Critically high 0.2 - 1.0 [facility] Comment on above: Result Comment: { CA LLED TO ZEINA BY MY AT 12:42 { READ BACK BY ZEINA RA MY AT 12:42 Performed By: #### 2 55518 #### [facility],[address] [place], [place] [address] Calcium [Mass/Vol] 9.6 mg/dL Normal 8.5 - 10.1 [facility] Comment on above: Performed By: #### 2 83093 #### [facility],[address] [place], [place] [phone] Chloride [Moles/Vol] 94 mmol/L Low 98 - 107 [facility] Comment on above: Performed By: #### 2 96036 #### [facility],[address] [place], [place] [id number] CMP with eGFR Normal [facility] Comment on above: Result Comment: COMP REHENSIVE METABOLIC PANEL Performed By: #### 2 64472 #### [facility],[address] [place], [place] [id number] CO2 [Moles/Vol] 25.0 mmol/L Normal 21.0 - 32.0 [facility] Comment on above: Performed By: #### 2 74261 #### [facility],[address] [place], [place] [id number] Creatinine [Mass/Vol] 1.08 mg/dL Normal 0.70 - 1.30 [facility] Comment on above: Performed By: #### 2 69950 #### [facility],[address] [place] [address] 65963 eGFR 70 ML/MINUTE Normal 60 - 999 [facility] Comment on above: Performed By: #### 2 95483 #### [facility],[address] [place] [address]653 GFR/1.73 sq M.predicted among non-blacks MDRD (S/P/Bld) [Vol rate/Area] mL/min/{1.73_m2} Normal 60 - 999 [facility] Comment on above: Result Comment: ACCO RDING TO THE NATIONAL KIDNEY DISEASE EDUCATION PROGRAM(NKDE), A NORMAL eGFR IS A VALUE GREATER THAN OR EQUAL TO 60 ML/MIN/1.73 SQ METERS. CHRONIC KIDNEY DISEASE: <60mL/MIN/1.73 SQ METERS KIDNEY FAILURE: <15mL/MIN/1.73 SQ METERS THIS TEST SHOULD ONLY BE USED FOR PATIENTS 18 YEARS OF AGE AND OLDER. Performed By: #### 2 45503 #### [facility],[address] [place] [address] 39657 Globulin (S) [Mass/Vol] 4.6 g/dL High 1.5 - 3.8 [facility] Comment on above: Performed By: #### 2 57938 #### [facility],[address] [place] [address] 13392 Glucose [Mass/Vol] 124 mg/dL High 74 - 106 [facility] Comment on above: Performed By: #### 2 75658 #### [facility],[address] [place] [address] 45745 Potassium [Moles/Vol] 3.7 mmol/L Normal 3.5 - 5.1 [facility] Comment on above: Performed By: #### 2 53905 #### [facility],[address] [place] [address] 37674 Protein [Mass/Vol] 7.8 g/dL Normal 6.4 - 8.2 [facility] Comment on above: Performed By: #### 2 76910 #### [facility],[address] [place] [address] 62952 Sodium [Moles/Vol] 130 mmol/L Low 136 - 145 [facility] Comment on above: Performed By: #### 2 51761 #### [facility],[address] [place] [address] 43990 Urea nitrogen [Mass/Vol] 8 mg/dL Normal 7 - 18 [facility] Comment on above: Performed By: #### 2 34536 #### [facility],[address] [place] [address]879 CULTURE BLOOD [LUIS]on Microscopic examination of blood, culture CULTURE BLOOD [LUIS] _BLOOD CULTURE_ [facility] FOR SCANNED REPORT 11/16/24.1030.DNP.COMP LETCoty Normal [facility] Comment on above: Performed By: #### 2 67989 #### [facility],[address] [place] [address] Microscopic examination of blood, culture CULTURE BLOOD [LUIS] _BLOOD CULTURE_ GO TO [facility] REPORTS AND ATTACHMENTS FOR SCANNED REPORT 11/16/24.1030.DNP.COMP JESÚS Normal [facility] Comment on above: Performed By: #### 2 74002 #### [facility],[address] [place] [address] ED MED ADMINISTRATION DETAIL on 11-05-2024 ED MED ADMINISTRATION DETAIL 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 Allergies verified and confirmed 5 rights. Via 12:39 11/05/2024 (NOW x1) IV pump. IV patency established. IV site checked: no pain, redness, Autumn Martinez R.N. or swelling. IV flushed thoroughly pre-medication administration. Stopped Information reviewed with patient including reason for taking this 15:50 11/05/2024 medication, signs of allergic reaction and precautions. Verbalizes Autumn Martinez R.N. understanding. - 12:40 Autumn Martinez R.N. Scanned 15:50 11/05 Medication Discontinued: bag #1 infused. Total amount infused: 1000 mL. IV patency established. IV site checked: no pain, redness, or swelling. IV flushed thoroughly post-medication administration. - 16:11 Autumn Martinez R.N. Zofran IVP 4 mg 12:40 11/05 Zofran IVP 4 mg given via Site# 1. Allergies verified Given (NOW x1) and confirmed 5 rights. IV patency established. IV site checked: no 12:40 11/05/2024 pain, redness, or swelling. IV flushed thoroughly pre-medication Autumn Martinez R.N. administration. Information reviewed with patient including reason Scanned for taking this medication, signs of allergic reaction and precautions. Verbalizes understanding. - 12:41 Autumn Martinez R.N. 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 Allergies verified and confirmed 5 Autumn Martinez R.N. 3.375 g diluted in rights. Via IV pump. IV patency established. IV site checked: no Stopped sodium chloride pain, redness, or swelling. IV flushed thoroughly pre-medication 13:26 11/05/2024 IVPB 0.9 % administration. Information reviewed with patient including reason Autumn Martinez R.N. Minibag+ 50 mL at for taking this medication, signs of allergic reaction and precautions. Scanned 100 mL/hr (NOW x1) Verbalizes understanding. - 12:51 Autumn Martinez R.N. 13:26 11/05 Medication Discontinued: IV infused. Total amount infused: 50 mL. IV patency established. IV site checked: no pain, redness, or swelling. IV flushed thoroughly post-medication administration. - 14:26 Autumn Martinez R.N. MORPHine IVP 4 12:56 11/05 MORPHine IVP 4 mg given via Site# 1. Allergies Given mg (NOW x1, HIGH verified and confirmed 5 rights. IV patency established. IV site 12:56 11/05/2024 ALERT checked: no pain, redness, or swelling. IV flushed thoroughly Autumn Martinez R.N. MEDICATION) pre-medication administration. Information reviewed with patient Scanned including reason for taking this medication, signs of allergic reaction and precautions. Verbalizes understanding. - 13:04 Autumn Martinez R.N. MORPHine IVP 4 14:25 08 MORPHine IVP 4 mg given via Site# 1. Allergies Given mg (NOW x1, HIGH verified and confirmed 5 rights. IV patency established. IV site 14:25 11/05/2024 ALERT checked: no pain, redness, or swelling. IV flushed thoroughly Autumn Martinez R.N. MEDICATION) pre-medication administration. Information reviewed with patient Scanned including reason for taking this medication, signs of allergic reaction and precautions. Verbalizes understanding. - 14:26 Autumn Martinez R.N. 2 of 2 Normal [facility] ED NURSES CLINICAL NOTEon ED NURSES CLINICAL NOTE Nurse Narrative - MICHAEL MEJIA, : 1965, , Nurse Clinical Narrative [address] [address] [id number] 11/05/2024 11:54:00 Patient: MICHAEL MEJIA Sex: Male : 1965 Age: 58y Disposition: Transfer to [facility] Disposition Decision Time: 13:14 11/05/2024 Departure Time: 15:55 11/05/2024 TRIAGE Arrived by private vehicle. Historian: (patient). Primary physician (Car). Triage time: 11:52 11/05/2024. Acuity: LEVEL 2. Chief Complaint: ABDOMINAL PAIN and NAUSEA and (Jaundice). Onset. (10/13/2024). SEPSIS SCREEN: NEGATIVE. SIRS criteria negative. Possible sources of infection: acute abdomen. -- 12:02 11/05/24 EDT Alice Pereyra R.N. 11:59 11/05/24. BP: 160/98 MAP: 119. HR: 83. RR: 17. O2 saturation: 98% Temperature: 98.5 F. Pain level now 9/10. (0800-Bentyl 20mg). -- 12:11/05/24 CAYDEN Pereyra R.N. Measurements: 12:11/05/24 Wt: 99.8 kg, Ht/Topher: 71.0 in, BMI: 30.68 -- 12:11/05/24 CAYDEN Pereyra R.N. Medications: dicyclomine 20 mg tablet: 1 tablet every six hours as needed. -- 12:11/05/24 CAYDEN Pereyra R.N. ketorolac 10 mg tablet: TAKE ONE TABLET BY MOUTH EVERY 4 HOURS NEEDED FOR ABDOMINAL PAIN. Do not exceed 4 TABLETS per DAY. -- 12:11/05/24 CAYDEN Pereyra R.N. Allergy Relief (cetirizine) 10 mg tablet: 1 tablet once a day. -- 12:11/05/24 CAYDEN Pereyra R.N. 1 of 5 Nurse Narrative - MICHAEL MEJIA, : 1965, , sertraline 100 mg tablet: 1 tablet once a day. -- 12:11/05/24 CAYDEN Pereyra R.N. pantoprazole 40 mg tablet,delayed release: 1 tablet twice a day. -- 12:11/05/24 CAYDEN Pereyra R.N. losartan 50 mg tablet: 1 tablet once a day. -- 12:11/05/24 CAYDEN Pereyra R.N. 11:52 11/05/24. Preferred Pharmacy: ([facility]). -- 12:02 11/05/24 CAYDEN Pereyra R.N. Allergies: azithromycin -- 11:58 11/05/24 CAYDEN Pereyra R.N. Home Medications/Allergy Information Source: patient -- 11:58 11/05/24 CAYDEN Pereyra R.N. Problems: Hypertension -- 11:58 11/05/24 CAYDEN Pereyra R.N. Gastroesophageal Reflux Disease -- 11:58 11/05/24 CAYDEN Pereyra R.N. Anxiety disorder -- 11:58 11/05/24 GINNAT Alice Pereyra R.N. Surgeries: Sinus Surgery -- 11:58 11/05/24 CAYDEN Pereyra R.N. Hernia Repair -- 11:58 11/05/24 GINNAT Alice Pereyra R.N. Appendectomy -- 11:58 11/05/24 GINNAT Alice Pereyra R.N. History 11:52 11/05/24. PAST MEDICAL HX: Immunizations: up-to-date. SOCIAL HX: Never smoker. No alcohol use or drug use. The patient has not traveled outside the [place] Infectious disease exposure: No infectious disease exposure. ABUSE ASSESSMENT: The patient answered yes to the question(s) Do you feel safe in your home? and no to the question(s) Are you afraid to go home?. Abuse denied. SELF HARM ASSESSMENT: Self harm assessment was performed. The patient answered no to the 2 of 5 Nurse Narrative - MICHAEL MEJIA, : 1965, , question(s) Have you recently felt down, depressed, or hopeless? and Do you have thoughts of harming or killing yourself?. FALL RISK ASSESSMENT: Fall risk assessment completed. No risk factors identified. -- 12:02 11/05/24 GINNAT Alice Pereyra R.N. Interventions 11:52 11/05/24. Advanced care plan discussed with patient (Full Code). -- 12:02 11/05/24 GINNAT Alice Pereyra R.N. PHYSICAL ASSESSMENT 13:06 11/05/24. GENERAL / NEURO / PSYCH: Alert. Oriented X 4. Appears in no acute distress. HEENT: Scleral icterus. RESPIRATORY: Respirations not labored. Breath sounds within normal limits. CVS: Normal sinus rhythm noted. Capillary refill less than 2 seconds. GI / : The patient has had nausea. Abdominal tenderness in the right upper quadrant, left upper quadrant, right lower quadrant and left lower quadrant. Bowel sounds within normal limits. SKIN: Skin appears jaundiced. Skin is warm and dry. -- 13:31 11/05/24 EDT Autumn Martinez R.N. NURSING PROGRESS NOTES 11:54 11/05/24. Site #1 started in the left antecubital space with an 18g needle with aseptic technique and good blood return; 1 attempt. Blood drawn: rainbow set and hernadez tube(s). Saline lock flushed with 5 mL saline. (Per OLY Cardenas.) -- 11:57 11/05/24 EDT Alice Pereyra R.N. 12:39 11/05/24. IV NS 0.9 % 1000 mL started in bag#1 1000 mL at 500 mL/hr via Site# 1. Allergies verified and confirmed 5 rights. Via IV pump. IV patency established. IV site checked: no pain, redness, or swelling. IV flushed thoroughly pre-medication administration. Information reviewed with patient including reason for taking this medication, signs of allergic reaction and precautions. Verbalizes understanding. -- 12:40 11/05/24 EDT Autumn Martinez R.N. 12:40 11/05/24. Zofra (more content not included)... Normal [facility] ED ORDER SHEET (CPOE ONLY)on 11-05-2024 ED ORDER SHEET (CPOE ONLY) Order Sheet - MICHAEL MEJIA, : 1965, , Order Sheet [address] [address] [id number] 11/05/2024 Patient: MCIHAEL MEJIA Sex: Male : 1965 Age: 58y MEASUREMENTS: Wt: 99.8 kg, Ht/Topher: 71.0 in, BMI: 30.68 ALLERGIES: azithromycin MEDICATION/IV/DRIP/FLU ID ORDERS Order Description Priority Entered Acknowledged Completed IV NS 0.9 %1000 mL at 500 12:09 11/05/2024 12:10 12:40 mL/hr (NOW x1) Yamil Taylor M.D. 11/05/2024 11/05/2024 Autumn Costa R.N. RJackiN. Zofran IVP4 mg (NOW x1) 12:09 11/05/2024 12:10 12:41 Yamil Taylor M.D. 11/05/2024 11/05/2024 Autumn Costa R.N. RJackiNJacki Piperacillin-Tazobac (Zosyn) 12:10 11/05/2024 12:29 12:51 IVPB 3.375gm/50ml NS3.375 g Yamil Taylor M.D. 11/05/2024 11/05/2024 diluted in sodium chloride IVPB Autumn Costa, 0.9 % Minibag+ 50 mL at 100 R.N. R.N. mL/hr (NOW x1) MORPHine IVP4 mg (NOW x1, 12:51 11/05/2024 13:04 HIGH ALERT MEDICATION) Yamil Taylor M.D. 11/05/2024 Autumn Martinez R.N. 1 of 3 Order Sheet - MICHAEL MEJIA, : 1965, , MORPHine IVP4 mg (NOW x1, 14:14 11/05/2024 14:18 14:26 HIGH ALERT MEDICATION) Yamil Taylor M.D. 11/05/2024 11/05/2024 Autumn Costa R.NJacki RSteven Reason for ordering with alerts: Clinical consideration given --14:14 11/05/2024 Yamil Taylor M.D. LAB ORDERS Order Description Priority Entered Acknowledged Collected Completed CBC w Diff Stat Stat 12:11/05/2024 12:10 11/05/2024 12:10 11/05/2024 Chantale Ni Katelyn Horst, R.N. R.NJacki CMP Stat Stat 12:09 11/05/2024 12:10 11/05/2024 12:10 11/05/2024 Chantale Ni Katelyn Horst, R.N. R.N. Lipase Stat Stat 12:09 11/05/2024 12:10 11/05/2024 12:10 11/05/2024 Chantale Ni Katelyn Horst, R.N. R.NJacki Blood Culture Stat 12:09 11/05/2024 12:10 11/05/2024 12:51 11/05/2024 [Luis] # 1 Stat Chantale Ni Katelyn Horst, R.N. R.N. Blood Culture Stat 12:09 11/05/2024 12:10 11/05/2024 12:51 11/05/2024 [Luis] # 2 Stat Chantale Ni Katelyn Horst, R.N. R.N. Lactate, Serum Stat Stat 12:09 11/05/2024 12:10 11/05/2024 12:10 11/05/2024 Chantale Ni Katelyn Horst, R.N. R.N. Urinalysis Stat Stat 12:09 11/05/2024 12:10 11/05/2024 13:21 11/05/2024 Chantale Ni Katelyn Horst, R.N. RSteven DIAGNOSTIC STUDY ORDERS 2 of 3 Order Sheet - MICHAEL MEJIA, : 1965, , Order Description Priority Entered Acknowledged Completed STAFF ORDERS Order Description Priority Entered Acknowledged Collected Completed [Electronically signed by Yamil Taylor M.D. (11/05/2024 19:57 EDT)] 3 of 3 Normal [facility] ED PHYSICIAN CLINICAL REPORT on 11-05-2024 ED PHYSICIAN CLINICAL REPORT Narrative - MICHAEL MEJIA, : 1965, , Physician Clinical Narrative [address] [address] [id number] 11/05/2024 11:54:00 Patient: MICHAEL MEJIA Sex: Male : 1965 Age: 58y Disposition: Transfer to [facility] Disposition Decision Time: 13:14 11/05/2024 Departure Time: 15:55 11/05/2024 Measurements Wt: 99.8 kg, Ht/Topher: 71.0 in, BMI: 30.68 Initial Vital Sign Measured Time BP MAP HR RR O2Sat ETCO2 Temp Pain GCS RTS 11:59 11/05/2024 160/98 119 83 17 98% 98.5 F 9 Time Seen: 12:09 11/05/2024. Arrived- By private vehicle. Historian- patient. Independent historian- family. HISTORY OF PRESENT ILLNESS Chief Complaint: ABDOMINAL PAIN. It is described as pain and it is described as located in the right upper quadrant, epigastric area and left upper quadrant. This started about 2 weeks ago; seen in the ED 2 weeks ago with mainly left upper quadrant pain. Workup at that time including abdominal CT and labs were all unremarkable. He continued to have ongoing pain son Sean Painter 2 days ago had a gallbladder ultrasound done that same day. Continues to have abdominal discomfort poor appetite. He has had some low-grade fever and chills. and is still present and worsening. The patient has had nausea and loss of appetite. REVIEW OF SYSTEMS CONSTITUTIONAL: The patient has had fever and chills. Has been become jaundiced over the past 5 days or so. That seems to be getting worse. : The patient has had difficulty with urination (is not urinating often and 1 of 10 Narrative - MICHAEL MEJIA, : 1965, , the urine has become very dark saha in color). GI: The patient has had mild constipation (Minimal infrequent stools). PAST HISTORY See nurses notes. Hypertension. Anxiety disorder Gastroesophageal Reflux Disease Hypertension Surgeries: Appendectomy Hernia Repair Sinus Surgery Medications: Allergy Relief (cetirizine) 10 mg tablet: 1 tablet once a day. dicyclomine 20 mg tablet: 1 tablet every six hours as needed. ketorolac 10 mg tablet: TAKE ONE TABLET BY MOUTH EVERY 4 HOURS NEEDED FOR ABDOMINAL PAIN. Do not exceed 4 TABLETS per DAY. losartan 50 mg tablet: 1 tablet once a day. pantoprazole 40 mg tablet,delayed release: 1 tablet twice a day. sertraline 100 mg tablet: 1 tablet once a day. Allergies: azithromycin Home Medications/Allergy Information Source: patient - Alice Pereyra R.N., 11/05/2024 11:58 EDT SOCIAL HISTORY Does not use tobacco. No alcohol use or drug use. Marital status: . ADDITIONAL NOTES The nursing notes have been reviewed. 2 of 10 Sonja MICHAEL MCCLAIN, : 1965, , PHYSICAL EXAM Vital Signs: Have been reviewed. Appearance: Alert. Oriented X3. No acute distress. (Markedly jaundiced). Eyes: Pupils equal, round and reactive to light. Scleral icterus. Eyes normal inspection. ENT: Ears normal. Nose normal. Pharynx normal. Neck: Normal inspection. Neck supple. CVS: Normal heart rate. Heart sounds normal. Pulses normal. Respiratory: No respiratory distress. Breath sounds normal. Abdomen: Soft. Moderate tenderness diffusely and in the upper abdomen. Distention (mild). Back: Normal inspection. Skin: Skin warm and dry. Normal skin turgor. (markedly jaundiced). Extremities: Extremities exhibit normal ROM. No lower extremity edema. Neuro: Oriented X 3. No motor deficit. No sensory deficit. LABS, X-RAYS, AND EKG Laboratory Tests: CBC + DIFF Final CHAVA: 11/05/2024 11:54:00 EDT MsgRcvd: 11/05/2024 12:26 EDT Lab Test Result Reference Status Received 11/05/2024 12:26 CBC + DIFF Final EDT CBC-COMPLETE BLOOD COUNT 11.1 x 10/UL 11/05/2024 12:26 WBC 4.5 - 10.8 Final Above high normal EDT 11/05/2024 12:26 RBC 5.14 x 10/UL 4.50 - 6.00 Final EDT 11/05/2024 12:26 HEMOGLOBIN 15.9 g/dl 13.0 - 17.5 Final EDT 3 of 10 Sonja Burdick MICHAEL MEJIA, : 1965, , 11/05/2024 12:26 HEMATOCRIT 44.4 % 40.0 - 52.0 Final EDT 11/05/2024 12:26 MCV 86 fl 81 - 98 Final EDT 11/05/2024 12:26 MCH 31 pg 27 - 33 Final EDT 11/05/2024 12:26 MCHC 36 X10 3 32 - 36 Final EDT 11/05/2024 12:26 RDW/CV 13.5 % 12.0 - 15.6 Final EDT 11/05/2024 12:26 PLATELET 426 x10/UL 150 - 450 Final EDT 11/05/2024 12:26 MPV 6.8 fl 6.4 - 10.5 Final EDT AUTOMATED DIFFERENTIAL 11/05/2024 12:26 NEUT % 74.1 % 46.0 - 76.0 Final EDT 13.2 % 11/05/2024 12:26 LYMPH % 20.0 - 45.0 Final Below low normal EDT 11/05/2024 12:26 MONOS % 7.2 % 0.0 - 10.0 Final EDT 11/05/2024 12:26 EO % 5.2 % 0.0 - 7.0 Final EDT 11/05/2024 12:26 BASO % 0.4 % 0.0 - 2.0 Final EDT 11/06/19 (more content not included)... Normal [facility] ED SUPER BILLon 11-05-2024 ED [facility] BILL [facility] - MICHAEL MEJIA, : 1965, , [place] [address] [id number] 11/05/2024 Patient: MICHAEL MEJIA Sex: Male : 1965 Age: 58y Facility Professional Category Item Description Code Code Quantity Fee Total Drugs Normal Saline 211715 1 $0.00 $0.00 1000cc (433625) Nurse/E/M EMERGENCY 096093 1 $0.00 $0.00 DEPT VISIT HIGH SEVERITYFUNCJ (73394-43) Nurse/IV/IM/Infusions Drip/IVPB initial 014611 1 $0.00 $0.00 (98447) Nurse/IV/IM/Infusions Hydration 409932 2 $0.00 $0.00 additional hour (90542) Nurse/IV/IM/Infusions IVP additional 546360 2 $0.00 $0.00 push (11734) Nurse/IV/IM/Infusions IVP same med 332510 1 $0.00 $0.00 (31 min apart) (20483) Grand $0.00 Total 1 of 2 [facility] - MICHAEL MEJIA, : 1965, , Providers Yamil Taylor M.D. Chief Complaint ABDOMINAL PAIN. Principal Diagnosis Acute abdominal pain. Cholelithiasis with obstruction and acute cholecystitis. Choledocholithiasis. ICD-10 Codes R10.9: Unspecified abdominal pain K80.01: Calculus of gallbladder with acute cholecystitis with obstruction 2 of 2 [facility] ED VISIT SUMMARYon ED VISIT SUMMARY Visit Overview - MICHAEL MEJIA : 1965, , Visit [address] [address] [id number] 11/05/2024 Patient: MICHAEL MEJIA Sex: Male : 1965 Age: 58y 11/05/2024 07:57 PM EDT ED Arrival:11:54 11/05/2024 EDT Status: Recent Travel:no Language:eng Adv Directive: Isolation Status: Ethnicity:N Fall Risk:no risk Infectious Disease Exposure:no Measurements:5'11 / 180.3 Self-Harm Status:risk Sepsis Screen:negative cm 220.0 lb / 99.8 kg Chief Complaint:ABDOMINAL PAIN, NAUSEA, (10/13/2024), (Car), and (Jaundice) ALLERGIES azithromycin HOME MEDICATIONS Allergy Relief (cetirizine) 10 mg tablet: 1 tablet once a day. dicyclomine 20 mg tablet: 1 tablet every six hours as needed. ketorolac 10 mg tablet: TAKE ONE TABLET BY MOUTH EVERY 4 HOURS NEEDED FOR ABDOMINAL PAIN. Do not exceed 4 TABLETS per DAY. losartan 50 mg tablet: 1 tablet once a day. pantoprazole 40 mg tablet,delayed release: 1 tablet twice a day. 1 of 4 Visit Overview - MEJIACORBIN ARGUETALEY, : 1965, , sertraline 100 mg tablet: 1 tablet once a day. PAST MEDICAL HISTORY / PROBLEMS Anxiety disorder Gastroesophageal Reflux Disease Hypertension Immunizations: up-to-date See nurses notes PAST SURGICAL HISTORY Appendectomy Hernia Repair Sinus Surgery SOCIAL HISTORY Smoking status: No Alcohol use: No Drug use: No ED COURSE MEDICATIONS GIVEN IN EMERGENCY DEPARTMENT 12:39 11/05/24 IV NS 0.9 % 1000 mL 500 mL/hr 12:40 11/05/24 Zofran IVP 4 mg Piperacillin-Tazobac (Zosyn) IVPB 3.375gm/50ml NS 3.375 g diluted in sodium 12:41 11/05/24 chloride IVPB 0.9 % Minibag+ 50 mL 100 mL/hr 12:56 11/05/24 MORPHine IVP 4 mg 14:25 11/05/24 MORPHine IVP 4 mg IV SITE INFORMATION 11:54 11/05/24 Site #1 left AC, 18g. Saline lock. INTAKE OUTPUT REASSESMENT (most recent) 2 of 4 Visit Overview - MICHAEL MEJIA, : 1965, , 13:06 11/05/24. GENERAL / NEURO / PSYCH: Alert. Oriented X 4. Appears in no acute distress. HEENT: Scleral icterus. RESPIRATORY: Respirations not labored. Breath sounds within normal limits. CVS: Normal sinus rhythm noted. Capillary refill less than 2 seconds. GI / : The patient has had nausea. Abdominal tenderness in the right upper quadrant, left upper quadrant, right lower quadrant and left lower quadrant. Bowel sounds within normal limits. SKIN: Skin appears jaundiced. Skin is warm and dry. VITAL SIGNS First Vitals Last Vitals Temp 11:59 11/05/24 98.5 F Temp 15:39 11/05/24 BP 11:59 11/05/24 160/98 BP 15:39 11/05/24 144/88 HR 11:59 11/05/24 83 HR 15:39 11/05/24 91 RR 11:59 11/05/24 17 RR 15:39 11/05/24 O2 Sat 11:59 11/05/24 98% O2 Sat 15:39 11/05/24 Pain 11:59 11/05/24 9 Pain 15:39 11/05/24 ETCO2 11:59 11/05/24 ETCO2 15:39 11/05/24 GCS 11:59 11/05/24 GCS 15:39 11/05/24 RTS 11:59 11/05/24 RTS 15:39 11/05/24 PROCEDURES NURSING INTERVENTIONS LABS / STUDIES LABS / STUDIES ORDERED Blood Culture [Luis] # 1 Blood Culture [Luis] # 2 CBC w Diff CMP Lactate, Serum Lipase Urinalysis LABS - ABNORMAL RESULTS CMP with eGFR TOTAL BILI 15.4 mg/dl () 3 of 4 Visit Overview - MICHAEL MEJIA, : 1965, , CLINICAL IMPRESSION ACUTE ABDOMINAL PAIN CHOLELITHIASIS WITH OBSTRUCTION AND ACUTE CHOLECYSTITIS 4 of 4 Normal [facility] ED VITALS FLOW SHEETon 11-05 ED VITALS FLOW SHEET Vitals - MICHAEL MEJIA : 1965, , Vital Sign Flow Sheet [address] [address] [id number] 11/05/2024 Patient: MICHAEL MEJIA Sex: Male : 1965 Age: 58y Measurements Wt: 99.8 kg, Ht/Topher: 71.0 in, BMI: 30.68 Measured Time BP MAP HR RR O2Sat ETCO2 Temp Pain GCS RTS 15:39 11/05/2024 144/88 107 91 15:36 11/05/2024 93 91% 15:31 11/05/2024 93 93% 15:26 11/05/2024 89 94% 15:24 11/05/2024 156/92 107 88 15:21 11/05/2024 89 92% 15:16 11/05/2024 88 92% 15:11 11/05/2024 84 93% 15:09 11/05/2024 154/91 112 81 15:06 11/05/2024 88 95% 15:01 11/05/2024 87 95% 14:56 11/05/2024 87 98% 14:54 11/05/2024 133/97 113 83 14:51 11/05/2024 88 95% 14:46 11/05/2024 84 96% 1 of 3 Vitals - MICHAEL MEJIA, : 1965, , Measured Time BP MAP HR RR O2Sat ETCO2 Temp Pain GCS RTS 14:41 11/05/2024 82 96% 14:39 11/05/2024 145/85 115 82 14:36 11/05/2024 86 97% 14:31 11/05/2024 88 98% 14:26 11/05/2024 83 97% 14:24 11/05/2024 145/86 105 82 14:21 11/05/2024 81 98% 14:16 11/05/2024 88 97% 14:11 11/05/2024 81 98% 14:09 11/05/2024 150/89 109 77 14:06 11/05/2024 79 100% 14:01 11/05/2024 82 98% 13:56 11/05/2024 79 96% 13:54 11/05/2024 143/84 116 75 13:51 11/05/2024 76 96% 13:46 11/05/2024 78 96% 13:41 11/05/2024 76 97% 13:39 11/05/2024 160/91 114 75 13:36 11/05/2024 73 97% 13:31 11/05/2024 80 98% 13:26 11/05/2024 79 98% 13:24 11/05/2024 159/92 114 78 13:21 11/05/2024 72 97% 13:16 11/05/2024 102 83% 13:11 11/05/2024 82 97% 2 of 3 Vitals - MICHAEL MEJIA, : 1965, , Measured Time BP MAP HR RR O2Sat ETCO2 Temp Pain GCS RTS 13:09 11/05/2024 148/86 127 77 13:06 11/05/2024 80 97% 13:01 11/05/2024 85 99% 12:56 11/05/2024 79 98% 12:54 11/05/2024 151/91 118 79 12:51 11/05/2024 81 97% 12:46 11/05/2024 83 99% 12:41 11/05/2024 81 97% 12:39 11/05/2024 156/90 112 80 12:36 11/05/2024 77 97% 12:31 11/05/2024 74 99% 12:26 11/05/2024 78 98% 12:24 11/05/2024 146/90 108 78 12:21 11/05/2024 73 98% 12:16 11/05/2024 80 98% 12:11 11/05/2024 83 97% 12:09 11/05/2024 147/91 124 79 12:06 11/05/2024 81 96% 11:59 11/05/2024 160/98 119 83 17 98% 98.5 F 9 3 of 3 Normal [facility] H AND P Exam - Hospitaliston 11-05-2024 H&P Exam - Hospitalist [facility] Medical Records Department [address] [place] [address] H P Exam - Hospitalist 11/05/24 1656 MR#: [id number] Acct: [id number] Name: MEJIAMICHAEL Sr. Rep #: [id number] : 1965 58 From: Kate Stark MD PCP: Dr. Beryl Harrison, DO Status:ADM IN Location: [facility] QZ496-4 HPI - General General Date of Admission: 11/05/24 Date of Service: 11/05/24 Chief Complaint: Abd pain and jaundince HPI Narrative MICHAEL MEJIA, is a 58-year-old male with a history of hypertension, GERD, anxiety [facility] with 3 weeks of abdominal pain. 2 weeks ago he had a CT abdomen and pelvis with contrast which showed thickening of the gallbladder but no other acute abnormalities, he had worsening pain over the past week or so and developed jaundice, 4 days ago he had an ultrasound that showed common bile duct of 11 mm, in the ED today his bilirubin was found to be 15 and imaging showed gallbladder sludge and stones. Patient suspected to have choledocholithiasis, given the above he was given antibiotics and [facility] contacted for transfer. Accepting hospitalist discussed with the GI and surgery and accepted the patient, they will be seen in consult. Patient arrived to the floor in stable condition. Evaluated patient at bedside. Patient reports history as above, he said right now his nausea and pain are little bit better after getting antibiotics and medication at the outlying facility in [place]. When asked for ROS patient said a little bit of everything but the most notably he has been having the intermittent upper abdominal pain that is worse when he eats or drinks so has not been eating or drinking very well and has been having a lot of gas with intermittent bowel movements but notes he has not been eating well so he would not expect you to have any bowel movements. Does note that he has been having what he thinks are fevers at home with sweats and then chills but does not sound as though he has taken his temperature during those times. [facility] Medical History (Updated 11/05/24 @ 17:[address] Kate Stark MD) Anxiety Appendicitis Depression HTN (hypertension) Home Medications ???Medication ???Instructions ???Recorded ???Last Taken ???Type cetirizine 10 mg tablet (Allergy 10 mg PO DAILY allergies 11/05/24 Unknown History Relief (cetirizine)) losartan 50 mg tablet 50 mg PO DAILY blood pressure 10/20 10/13 Unknown History pantoprazole 40 mg tablet,delayed 40 mg PO BID gerd 11/05/24 Unknow n History release sertraline 100 mg tablet 100 mg PO DAILY anxiety 11/05/24 U nknown History Allergy/AdvReac Type Severity Reaction Status Date / Time No Known Allergies Allergy Verified 09/13/20 11:27 Surgical History (Updated 11/05/24 @ 16:42 by Poornima Walker) H/O hernia repair H/O sinus surgery Social History Smoking Status: Former smoker ROS ROS Narrative Asked for ROS, answers as above, for all other questions patient gave a blanket statement a little bit of everything Vital Signs Vital Signs Vital Signs: 11/05/24 16:48 Temperature 98.3 F Temperature Source Oral Pulse Rate 97 Respiratory Rate 16 Blood Pressure 134/78 H Blood Pressure Mean 96 Blood Pressure Source Monitor Blood Pressure Position Semi-Fowlers Blood Pressure Location Right Arm Pulse Ox 96 Oxygen Delivery Method Room Air Weight Weight: 97.5 kg Body Mass Index (BMI) 29.9 Physical Exam Narrative General: Alert, oriented, no apparent distress HEENT: Atraumatic, normocephalic Eyes: Some scleral icterus appreciated, normal conjunctiva, extraocular movements grossly intact Neck: Supple Respiratory: Clear to auscultation bilaterally, normal respiratory effort Cardiovascular: Regular rate and rhythm GI: Soft, somewhat protuberant, did not have any significant tenderness on my evaluation with no rebound, guarding, or rigidity Extremities: No edema Musculoskeletal: Moving all extremities Neuro: No overt focal neurological deficits Skin: No rashes appreciated the patient does appear visually jaundice Psych: Cooperative Assessment Plan Assessment/Plan (1) Jaundice: (2) Choledocholithiasis: PLAN: Plan # Jaundice, common bile duct dilation, gallbladder sludge and stones -Bilirubin of 15 in outlying facility with elevated liver enzymes -overview of chart reveals AST 226, alpha Umberto 599 total bili of 15.4 -Copies of reports on physical chart -right upper quadrant ultrasound from 11/03 with distended gallbladder filled with sludges small calculi with thickening of wall and common bile duct dilated 10.1 mm but duct is not visualized in its entirety though no introductory calculus demonstrated on what was visible -Suspected choledocholithiasis but given histo (more content not included)... Normal [facility] LACTATEon 11-05-2024 Lactate [Moles/Vol] 1.4 mmol/L Normal 0.4 - 2.0 [facility] Comment on above: Performed By: #### 2 [id number] #### [place] [address] LIPASEon 11-05-2024 Lipase [Catalytic activity/Vol] 23.0 U/L Normal 15.0 - 78.0 [facility] Comment on above: Result Comment: *PLE ASE NOTE THAT RANGES FOR LIPASE HAVE CHANGED OF 03/19/23 DUE TO AN ASSAY UPDATE BY THE CONSUMER EDUCATOR.THE NEW ASSAY RANGE IS 6-250 U/L, WITH A REFERENCE RANGE OF 16-77 U/L. Performed By: #### 2 63790 #### [place] [address] URINALYSISon 11-05-2024 Amorphous NONE Normal [facility] Comment on above: Performed By: #### 2 01609 #### [place] [address] Bacteria NONE Normal [facility] Comment on above: Performed By: #### 2 27622 #### [facility],[address] [place] [address] Bilirubin Ql (U) 6 Abnormal NORMAL: NEGATIVE [facility] Comment on above: Performed By: #### 2 [id number] #### [facility],[address] [place] [address] Casts NONE Normal [facility] Comment on above: Performed By: #### 2 81774 #### [facility],[address] [place] [address] Clarity (U) clear Normal NORMAL: CLEAR [facility] Comment on above: Performed By: #### 2 18752 #### [facility],[address] [place] [address] Color (U) brown Normal NORMAL: YELLOW [facility] Comment on above: Performed By: #### 2 [id number] #### [facility],[address] [place] [address] Crystals LM Nom (Urine sed) NONE Normal [facility] Comment on above: Performed By: #### 2 15046 #### [facility],[address] [place] [address] Epi Cells NONE Normal [facility] Comment on above: Performed By: #### 2 07028 #### [facility],[address] [place] [address] Glucose Ql (U) NORM Normal NORMAL: NORMAL [facility] Comment on above: Performed By: #### 2 10945 #### [facility],[address] [place] [address] [place] [address] Hemoglobin Ql (U) 50 Abnormal NORMAL: NEGATIVE [facility] Comment on above: Performed By: #### 2 05424 #### [facility],[address] [place] [address] [place] [address] Ketone 50 Abnormal NORMAL: NEGATIVE [facility] Comment on above: Performed By: #### 2 51850 #### [facility],[address] [place] [address] Leukocytes 25 Abnormal NORMAL: NEGATIVE [facility] Comment on above: Performed By: #### 2 97393 #### [facility],[address] [place] [address] Mucous NONE Normal [facility] Comment on above: Performed By: #### 2 42990 #### [facility],[address] [place] [address] Nitrite Ql (U) Positive Normal NORMAL: NEGATIVE [facility] Comment on above: Performed By: #### 2 44122 #### [facility],[address] [place] [address] pH (U) 6 [pH] Normal NORMAL: 5.0-8.0 [facility] Comment on above: Performed By: #### 2 82867 #### [facility],[address] [place] [address] Protein Ql (U) 30 Abnormal NORMAL: NEGATIVE [facility] Comment on above: Performed By: #### 2 23636 #### [facility],[address] [place] [address] Rbc NONE Normal 0-3/hpf [facility] Comment on above: Performed By: #### 2 67532 #### [facility],[address] [place] [address] Sp [place]way 1.015 Normal NORMAL: 1.010-1.030 [facility] Comment on above: Performed By: #### 2 88302 #### [facility],[address] [place] [address] Specimen Type R Normal [facility] Comment on above: Performed By: #### 2 59285 #### [facility],[address] [place] [address] Urinalysis dipstick W Reflex Microscopic panel (U) SEE BELOW Normal [facility] Comment on above: Result Comment: MICR OSCOPIC Performed By: #### 2 94974 #### [facility],[address] [place] [address] Urobilinog 8 Abnormal NORMAL: NORMAL [facility] [place] Comment on above: Performed By: #### 2 62172 #### [facility],[address] [place] [address] 24985 Wbc NONE Normal 0-5/hpf [facility] [place] Comment on above: Performed By: #### 2 63870 #### [facility] [place],[address] [place] [address] 14604 Yeast NONE Normal [facility] [place] Comment on above: Performed By: #### 2 61173 #### [facility] [place],[address] [place] [address] 95421 US RUQ (GB/PANCREAS)on 11-03 US RUQ (GB/PANCREAS) [place] [address] Patient: MICHAEL MEJIA Phone#: : 1965 Age: 58 Gender: M Pt. Type: Out Account: [id number] Location: [facility] Ordering: TRUPTI PAINTER Exam Date: 11/03/2024/6:58 Family Phys: Charge Code: 536251 Physician: [place] Order #: [id number] Dose#: PROCEDURE: RUQ (GB) ULTRASOUND COMPARISON: None. [...] MARINA MD ON 11/03/2024 AT 8:49 Normal [facility] AMYLASEon 11-02-2024 Amylase [Catalytic activity/Vol] 27 U/L Normal 25 - 115 [facility] [place] Comment on above: Performed By: #### 2 79536 #### [place] [address] LIPASEon 11-02-2024 Lipase [Catalytic activity/Vol] 20.0 U/L Normal 15.0 - 78.0 [facility] [place] Comment on above: Result Comment: *PLE ASE NOTE THAT RANGES FOR LIPASE HAVE CHANGED OF 03/19/23 DUE TO AN ASSAY UPDATE BY THE CONSUMER EDUCATOR.THE NEW ASSAY RANGE IS 6-250 U/L, WITH A REFERENCE RANGE OF 16-77 U/L. Performed By: #### 2 63398 #### [place] [address] C-REACTIVE PROTEINon 025 CRP 0.87 mg/dl Normal 0.00 - 0.90 [facility] [place] Comment on above: Performed By: #### 2 75147 #### [place] [address] CBC + DIFFon 10-13-2024 Baso # 0.03 x10EE3/UL Normal 0.00 - 0.10 [facility] [place] Comment on above: Performed By: #### 2 34578 #### [place] [id number] Basophils/100 WBC (Bld) 0.3 % Normal 0.0 - 2.0 [facility] Comment on above: Performed By: #### 2 88905 #### [facility] [place],[address] [place] [address] 06895 CBC + DIFF Normal [facility] [place] Comment on above: Result Comment: CBC- COMPLETE BLOOD COUNT Performed By: #### 2 69280 #### [facility] [place],[address] [place] [address] 90756 EO # 0.15 x10EE3/UL Normal 0.00 - 0.50 [facility] [place] Comment on above: Performed By: #### 2 85720 #### [facility] [place],[address] [place] [address] 83844 Eosinophils/100 WBC (Bld) 1.4 % Normal 0.0 - 7.0 [facility] [place] Comment on above: Performed By: #### 2 20669 #### [facility] [place],[address] [place], [place] [id number] Erythrocyte distribution width (RBC) [Ratio] 13.4 % Normal 12.0 - 15.6 [facility] [place] Comment on above: Performed By: #### 2 64526 #### [facility] [place],[address] [place] [address] 30097 Hematocrit (Bld) [Volume fraction] 47.7 % Normal 40.0 - 52.0 [facility] [place] Comment on above: Performed By: #### 2 95279 #### [facility] [place],[address] [place] [address] 03087 Hemoglobin (Bld) [Mass/Vol] 16.6 g/dL Normal 13.0 - 17.5 [facility] [place] Comment on above: Performed By: #### 2 09792 #### [facility] [place],[address] [place] [address] 56993 Lymph # 1.42 x10EE3/UL Normal 0.80 - 2.80 [facility] [place] Comment on above: Performed By: #### 2 53009 #### [facility] [place],[address] [place] [address] 54054 Lymphocytes/100 WBC (Bld) 13.8 % Low 20.0 - 45.0 [facility] [place] Comment on above: Performed By: #### 2 55090 #### [facility] [place],[address] [place] [address] MANUAL DIFF N/A Normal [facility] [place] Comment on above: Performed By: #### 2 93211 #### [facility] [place],[address] [place] [address] MCH (RBC) [Entitic mass] 30 pg Normal 27 - 33 [facility] [place] Comment on above: Performed By: #### 2 28820 #### [facility] [place],[address] [place] [address] MCHC 35 X10 3 Normal 32 - 36 [facility] [place] Comment on above: Performed By: #### 2 44328 #### [place] [address] MCV (RBC) [Entitic vol] 87 fL Normal 81 - 98 [facility] Comment on above: Performed By: #### 2 45033 #### [facility] [place],[address] [place] [address] Ross # 0.58 x10EE3/UL Normal 0.20 - 1.00 [facility] [place] Comment on above: Performed By: #### 2 43711 #### [facility] [place],[address] [place] [address] MONOS % 5.6 % Normal 0.0 - 10.0 [facility] [place] Comment on above: Performed By: #### 2 36200 #### [facility] [place],[address] [place], [place] [phone] Morphology Cole (Bld) [Interp] N/A Normal [facility] [place] Comment on above: Performed By: #### 2 62515 #### [facility],[address] [place] [address] Neut # 8.13 x10EE3/UL High 1.50 - 7.10 [facility] [place] Comment on above: Performed By: #### 2 46881 #### [facility] [place],[address] [place] [address] 36893 Neutrophils/100 WBC (Bld) 78.8 % High 46.0 - 76.0 [facility] [place] Comment on above: Performed By: #### 2 73082 #### [facility] [place],[address] [place] [address] 93402 PLATELET 323 x10EE3/UL Normal 150 - 450 [facility] [place] Comment on above: Performed By: #### 2 81626 #### [facility] [place],[address] [place] [address] 59388 Platelet mean volume (Bld) [Entitic vol] 7.2 fL Normal 6.4 - 10.5 [facility] [place] Comment on above: Result Comment: AUTO MATED DIFFERENTIAL Performed By: #### 2 69312 #### [facility] [place],[address] [place] [address] 06420 RBC 5.48 x 10EE6/UL Normal 4.50 - 6.00 [facility] [place] Comment on above: Performed By: #### 2 01609 #### [facility] [place],[address] [place] [address] 49962 WBC 10.3 x 10EE3/UL Normal 4.5 - 10.8 [facility] [place] Comment on above: Performed By: #### 2 47560 #### [facility] [place],[address] [place] [address] 46955 CMP with eGFRon 10-13-2024 AGE 58 years Normal [facility] [place] Comment on above: Performed By: #### 2 86543 #### [facility] [place],[address] [place] [address] 66189 Albumin [Mass/Vol] 4.0 g/dL Normal 3.4 - 5.0 [facility] [place] Comment on above: Performed By: #### 2 62905 #### [address] [address] Albumin/Globulin [Mass ratio] 1.1 {ratio} Normal 0.9 - 1.6 [facility] [place] Comment on above: Performed By: #### 2 89223 #### [facility] [place],[address] [place] [address] 92817 ALK PHOS 94 U/L Normal 46 - 116 [facility] [place] Comment on above: Performed By: #### 2 69029 #### [facility] [place],[address] [place] [address] 47048 ALT [Catalytic activity/Vol] 28 U/L Normal 16 - 63 [facility] [place] Comment on above: Performed By: #### 2 60023 #### [facility] [place],[address] [place] [address] 48517 Anion gap [Moles/Vol] 14 mmol/L Normal 10 - 20 [facility] Comment on above: Performed By: #### 2 54239 #### [facility] [place],[address] [place] [address] 17569 AST [Catalytic activity/Vol] 16 U/L Normal 15 - 37 [facility] [place] Comment on above: Performed By: #### 2 24412 #### [facility] [place],[address] [place] [address] 25025 B/C RATIO 13 ratio Normal 0 - 30 [facility] [place] Comment on above: Performed By: #### 2 94052 #### [facility] [place],[address] [place] [address] 37781 Bilirubin [Mass/Vol] 0.6 mg/dL Normal 0.2 - 1.0 [facility] [place] Comment on above: Performed By: #### 2 88615 #### [facility] [place],[address] [place] [address] 19748 Calcium [Mass/Vol] 9.1 mg/dL Normal 8.5 - 10.1 [facility] [place] Comment on above: Performed By: #### 2 18007 #### [facility] [place],[address] [place] [address] 57284 Chloride [Moles/Vol] 101 mmol/L Normal 98 - 107 [facility] [place] Comment on above: Performed By: #### 2 51482 #### [facility] [place],[address] [place] [address] 77105 CMP with eGFR Normal [facility] [place] Comment on above: Result Comment: COMP REHENSIVE METABOLIC PANEL Performed By: #### 2 49337 #### [facility] [place],[address] [place], [place] [phone] CO2 [Moles/Vol] 24.6 mmol/L Normal 21.0 - 32.0 [facility] [place] Comment on above: Performed By: #### 2 52628 #### [facility] [place],[address] [place] [address] Creatinine [Mass/Vol] 1.07 mg/dL Normal 0.70 - 1.30 [facility] Comment on above: Performed By: #### 2 94851 #### [facility] [place],[address] [place] [address] GFR/1.73 sq M.predicted among non-blacks MDRD (S/P/Bld) [Vol rate/Area] mL/min/{1.73_m2} Normal 60 - 999 [facility] [place] Comment on above: Performed By: #### 2 24814 #### [facility] [place],[address] [place] [address] Result Comment: ACCO RDING TO THE NATIONAL KIDNEY DISEASE EDUCATION PROGRAM(NKDE), A NORMAL eGFR IS A VALUE GREATER THAN OR EQUAL TO 60 ML/MIN/1.73 SQ METERS. CHRONIC KIDNEY DISEASE: <60mL/MIN/1.73 SQ METERS KIDNEY FAILURE: <15mL/MIN/1.73 SQ METERS THIS TEST SHOULD ONLY BE USED FOR PATIENTS 18 YEARS OF AGE AND OLDER. Globulin (S) [Mass/Vol] 3.7 g/dL Normal 1.5 - 3.8 [facility] Comment on above: Performed By: #### 2 45923 #### [facility] [place],[address] [place], [place] [phone] Glucose [Mass/Vol] 165 mg/dL High 74 - 106 [facility] [place] Comment on above: Performed By: #### 2 58855 #### [facility] [place],[address] [place] [address] 05244 Potassium [Moles/Vol] 3.7 mmol/L Normal 3.5 - 5.1 [facility] Comment on above: Performed By: #### 2 93351 #### [facility] [place],[address] [place] [address] 06743 Protein [Mass/Vol] 7.7 g/dL Normal 6.4 - 8.2 [facility] [place] Comment on above: Performed By: #### 2 38536 #### [facility] [place],[address] [place] [address] 26660 Sodium [Moles/Vol] 136 mmol/L Normal 136 - 145 [facility] [place] Comment on above: Performed By: #### 2 53698 #### [facility] [place],[address] [place] [address] 39410 Urea nitrogen [Mass/Vol] 14 mg/dL Normal 7 - 18 [facility] [place] Comment on above: Performed By: #### 2 72007 #### [facility],[address] [place] [address] 40749 ED MED ADMINISTRATION DETAIL on 10-13-2024 ED MED ADMINISTRATION DETAIL Data Mining Analyst [place]ication [place] [address] [id number] 10/13/2024 Patient: MICHAEL MEJIA Sex: Male : 1965 Age: 58y MEASUREMENTS: [...] 10/13 Medication Discontinued: bag #1 infused. Total Kulwinder Kelly R.N. amount infused: 1000 mL. IV patency established. [...] 03:13 Kulwinder Kelly R.N. 1 of 2 Data Mining Analyst Medication Ordered Medication Administration Date/Time Ondansetron IVP [...] Kulwinder Kelly R.N. 2 of 2 Normal [facility] ED NURSES CLINICAL NOTEon ED NURSES CLINICAL NOTE Nurse Narrative Nurse Clinical Narrative [address] [place] [address] [id number] 10/13/2024 02:43:00 Patient: MICHEAL MEJIA Sex: Male : 1965 Age: 58y Disposition: [...] had nausea, vomiting and abdominal pain. Treatment SUPERVISOR DOPING: None. SEPSIS SCREEN: NEGATIVE. SIRS criteria negative. [...] MAP: 162 mmHg. HR: 77 bpm. -- 03:10/13/24 EDT Kulwinder Kelly R.N. 03:12 10/13/24. BP: 168/99 MAP: 122 mmHg. HR: 76 bpm. -- 03:10/13/24 EDT Kulwinder Kelly R.N. 1 of 5 Nurse Narrative 03:22 10/13/24. HR: 65 bpm. O2 saturation: 99%. -- 03:10/13/24 EDT Kulwinder Kelly R.N. Measurements: 02:10/13/24 Wt: 99.8 kg, Ht/Topher: 71.0 in, BMI: 30.68 -- 02:54 10/13/24 GINNAT Kulwinder Kelly R.N. Medications: sertraline 100 mg tablet: 1 tablet once a day. -- 03:10/13/24 GINNAT Kulwinder Kelly R.N. pantoprazole 40 mg tablet,delayed release: 1 tablet twice a day. -- 03:10/13/24 GINNAT Kulwinder Kelly R.N. losartan 50 mg tablet: 1 tablet once a day. -- 03:10/13/24 EDT Kulwinder Kelly R.N. Allergy Relief (cetirizine) 10 mg tablet: TAKE ONE TABLET BY MOUTH DAILY -- 03:10/13/24 CAYDEN Klely R.N. 02:45 10/13/24. Preferred Pharmacy: ([facility]). -- 02:58 10/13/24 GINNAT Kulwinder Kelly R.N. Allergies: azithromycin -- 02:10/13/24 GINNAT Kulwinder Kelly R.N. Problems: Hypertension -- 02:10/13/24 GINNAT Kulwinder Kelly R.N. Gastroesophageal Reflux Disease -- 02:10/13/24 EDT Kulwinder Kelly R.N. Anxiety disorder -- 02:52 10/13/24 GINNAT Kulwinder Kelly R.N. Surgeries: Sinus Surgery -- [...] No risk factors identified. -- 02:58 10/13/24 EDT Kulwinder Kelly R.N. Interventions 02:45 10/13/24. Identification band [...] is warm and dry. -- 03:27 10/13/24 EDT Kulwinder Kelly R.N. NURSING PROGRESS NOTES 02:52 10/13/24. Site #1 started in the left antecubital space with an 18g angiocath; 1 attempt. Blood drawn: rainbow set and hernadez tube(s). Saline lock flushed with 5 mL saline. -- 02:56 10/13/24 CAYDEN Chacon R.N. 02:10/13/24. 12-LEAD EKG: EKG time: (02:45 10/13/2024). 12-Lead [...] EDT Leonor (more content not included)... Normal [facility] ED ORDER SHEET (CPOE ONLY)on 10-13-2024 ED ORDER SHEET (CPOE ONLY) Order Sheet Order Sheet [address] [place] [address] [id number] 10/13/2024 Patient: MICHAEL MEJIA Sex: Male : 1965 Age: 58y MEASUREMENTS: Wt: 99.8 kg, Ht/Topher: 71.0 in, BMI: 30.68 ALLERGIES: azithromycin MEDICATION/IV/DRIP/FLU ID ORDERS Order Description Priority Entered Acknowledged Completed IV NS 0.9 %1000 mL at 999 02:50 10/13/2024 02:59 03:07 mL/hr (NOW x1) Benja Mcguire D.O. 10/13/2024 10/13/2024 Kulwinder Mares R.N. R.N. HYDROmorphone (Dilaudid) 02:51 10/13/2024 02:59 03:13 IVP0.5 mg (NOW x1, HIGH Benja Mcguire D.O. 10/13/2024 10/13/2024 ALERT MEDICATION) Kulwinder Mares R.N. RJackiN. Ondansetron IVP4 mg (NOW x1) 02:51 10/13/2024 02:59 03:07 Benja Mcguire D.O. 10/13/2024 10/13/2024 Kulwinder Mares R.N. R.N. KetorOLAC (Toradol) IVP15 mg 03:18 10/13/2024 03:25 03:38 (NOW x1) Benja Mcguire D.O. 10/13/2024 10/13/2024 Kulwinder Mares R.N. R.N. 1 of 4 Order Sheet HYDROmorphone (Dilaudid) 04:18 10/13/2024 05:49 05:49 IVP1 mg (NOW x1, HIGH ALERT Benja Mcguire D.O. 10/13/2024 10/13/2024 MEDICATION) Kulwinder Mares R.N. R.N. Order Comments: 05:49 10/13/2024: Order Completed. Kulwinder Kelly R.N. Reason for ordering with alerts: Clinical consideration given --04:18 10/13/2024 Benja Mcguire D.O. HYDROmorphone (Dilaudid) 05:48 10/13/2024 05:49 05:49 IVP1 mg (NOW x1, HIGH ALERT Kulwinder Kelly R.N. 10/13/2024 10/13/2024 MEDICATION) Kulwinder Mares R.N. R.N. Order Comments: 05:49 10/13/2024: Order Completed. Kulwinder Kelly R.N. Reason for ordering with alerts: Clinical consideration given --04:18 10/13/2024 Benja Mcguire D.O. LAB ORDERS Order Description Priority Entered Acknowledged Collected Completed CBC w Diff Stat Stat 02:50 10/13/2024 02:58 10/13/2024 03:17 10/13/2024 Amy Bowden Charles Wilbur, R.N. R.N. CMP Stat Stat 02:50 10/13/2024 02:58 10/13/2024 03:17 10/13/2024 Amy Bowden Charles Wilbur, R.N. R.N. Troponin-I Stat Stat 02:50 10/13/2024 02:58 10/13/2024 03:17 10/13/2024 Amy Bowden Charles Wilbur, R.N. R.N. EKG - ED Stat Stat 02:50 10/13/2024 02:58 10/13/2024 03:17 10/13/2024 Amy Bowden Charles Wilbur, Evelin. R.N. BNP Stat Stat 02:50 10/13/2024 02:58 10/13/2024 03:17 10/13/2024 Amy Bowden Charles Wilbur, SimonaN. R.N. 2 of 4 Order Sheet Lactate, Serum Stat Stat 02:50 10/13/2024 02:58 10/13/2024 03:17 10/13/2024 Amy Bowden Charles Wilbur, Abigail.N. R.N. Urinalysis Stat Stat 02:50 10/13/2024 02:58 10/13/2024 04:28 10/13/2024 Amy Bowden Charles Wilbur, Abigail.Amina. R.N. Lipase Stat Stat 02:50 10/13/2024 02:58 10/13/2024 03:17 10/13/2024 Amy Bowden Charles Wilbur, Abigail.N. R.N. CRP Stat Stat 02:50 10/13/2024 02:58 10/13/2024 03:17 10/13/2024 Amy Bowden Charles Wilbur, Abigail.N. R.N. DIAGNOSTIC STUDY ORDERS Order Description Priority Entered Acknowledged Completed CT ABD/PEL w Cont Stat Stat 02:49 10/13/2024 02:58 03:17 Benja Mcguire D.O. 10/13/2024 10/13/2024 Kulwinder Mares, Abigail.N. R.N. Reason for Study: Abdominal Pain STAFF ORDERS Order Description Priority Entered Acknowledged Collected Completed IV Saline Lock 02:50 10/13/2024 02:59 10/13/2024 03:17 10/13/2024 Amy Bowden Charles Wilbur, R.N. R.N. Vital Signs every 30 02:50 10/13/2024 02:59 10/13/2024 03:17 10/13/2024 minutes Amy Bowden Charles Wilbur, R.N. R.N. Sterilizer Operator 02:50 10/13/2024 02:58 10/13/2024 03:17 10/13/2024 Amy Bowden Charles Wilbur, R.N. R.N. 3 of 4 Order Sheet Oxygen titrate to 92% 02:50 10/13/2024 02:59 10/13/2024 03:17 10/13/2024 Amy Bowden Charles Wilbur, R.N. R.N. [Electronically signed by Benja Mcguire D.O. (10/13/2024 07:02 EDT)] 4 of 4 Normal [facility] ED PHYSICIAN CLINICAL REPORT on 10-13-2024 ED PHYSICIAN CLINICAL REPORT Narrative Physician Clinical Narrative [address] [address] [id number] 10/13/2024 02:43:00 Patient: MICHAEL MEJIA Sex: Male : 1965 Age: 58y Disposition: [...] MPV 7.2 (more content not included)... Normal [facility] ED SUPER BILLon 10-13-2024 ED SUPER BILL [facility] [address] [place] [address] [id number] 10/13/2024 Patient: MICHAEL MEJIA Sex: Male : 1965 Age: 58y Item Facility Professional Category Description Code Code Quantity Fee Total Drugs Normal Saline 591410 1 $0.00 $0.00 1000cc (015185) Nurse/E/M EMERGENCY 760137 1 $0.00 $0.00 DEPARTMENT VISIT HIGH/URGENT SEVERITY (57393-94) Nurse/IV/IM/Infusions Hydration 958489 1 $0.00 $0.00 additional hour (58165) Nurse/IV/IM/Infusions IVP additional 869784 2 $0.00 $0.00 push (72772) Nurse/IV/IM/Infusions IVP initial 445265 1 $0.00 $0.00 (93327) Grand Total $0.00 Providers Benja Mcguire D.O. 1 of 2 Superbil Chief Complaint ABDOMINAL PAIN. Principal Diagnosis Acute left upper quadrant abdominal pain. Acute irritable bowel syndrome with abdominal pain. No diarrhea. ICD-10 Codes R10.12: Left upper quadrant pain K58.9: Irritable bowel syndrome, unspecified 2 of 2 Normal [facility] ED VISIT SUMMARYon ED VISIT SUMMARY Visit Overview Visit Overview [address] [place] [address] [id number] 10/13/2024 Patient: MICHAEL MEJIA Sex: Male : 1965 Age: 58y 10/13/2024 [...] 0.9 % 1000 mL 999 mL/hr 03:07 10/13/24 Ondansetron IVP 4 mg 03:09 10/13/24 HYDROmorphone [...] QUADRANT ABDOMINAL PAIN 3 of 3 Normal [facility] ED VITALS FLOW SHEETon 10-13 ED VITALS FLOW SHEET Vitals Vital Sign Flow Sheet [address] [place] [address] [id number] 10/13/2024 Patient: MICHAEL MEJIA Sex: Male : 1965 Age: 58y Measurements [...] 10/13/2024 67 95% 04:32 10/13/2024 57 95% 04:10/13/2024 62 94% 04:10/13/2024 175/96 112 61 04:22 10/13/2024 68 95% 04:10/13/2024 77 94% 04:12 10/13/2024 71 96% 04:12 10/13/2024 172/96 121 64 03:50 10/13/2024 168/96 120 59 03:37 10/13/2024 59 97% 03:32 10/13/2024 65 95% 03:10/13/2024 64 94% 03:10/13/2024 178/106 117 65 03:22 10/13/2024 65 99% 03:10/13/2024 66 98% 03:12 10/13/2024 168/99 122 76 03:12 10/13/2024 78 96% 03:01 10/13/2024 217/131 162 77 02:58 10/13/2024 71 18 98% 97.6 F 10 2 of 3 Vitals Measured Time BP MAP HR RR O2Sat ETCO2 Temp Pain GCS RTS 02:47 10/13/2024 72 99% 02:47 10/13/2024 191/116 165 72 3 of 3 Normal [facility] LACTATEon 10-13-2024 Lactate [Moles/Vol] 2.0 mmol/L Normal 0.4 - 2.0 [facility] Comment on above: Performed By: #### 2 27618 #### [facility],[address] [place] [address] LIPASEon 10-13-2024 Lipase [Catalytic activity/Vol] 32.0 U/L Normal 15.0 - 78.0 [facility] Comment on above: Result Comment: *PLE ASE NOTE THAT RANGES FOR LIPASE HAVE CHANGED OF 03/19/23 DUE TO AN ASSAY UPDATE BY THE CONSUMER EDUCATOR.THE NEW ASSAY RANGE IS 6-250 U/L, WITH A REFERENCE RANGE OF 16-77 U/L. Performed By: #### 2 19381 #### [facility],[address] [place] [address] NT-proBNPon 10-13-2024 Natriuretic peptide B (Bld) [Mass/Vol] 106 pg/mL Normal 0 - 125 [facility] Comment on above: Performed By: #### 2 53053 #### [facility],[address] [place], [place] [id number] TROPONINon 10-13-2024 HS TROPONIN <4.0 Normal 0.0 - 76.2 [facility] Comment on above: Performed By: #### 2 48170 #### [facility],[address] [place], [place] [phone] URINALYSISon 10-13-2024 Amorphous NONE Normal [facility] Comment on above: Performed By: #### 2 72792 #### [facility],[address] [place] [address] 99067 Bacteria NONE Normal [facility] Comment on above: Performed By: #### 2 27998 #### [facility],[address] [place] [address] 73771 Bilirubin Ql (U) Negative Normal NORMAL: NEGATIVE [facility] Comment on above: Performed By: #### 2 24571 #### [facility],[address] [place] [address] 27758 Casts NONE Normal [facility] Comment on above: Performed By: #### 2 30982 #### [facility],[address] [place] [address] 44006 Clarity (U) clear Normal NORMAL: CLEAR [facility] Comment on above: Performed By: #### 2 84340 #### [facility],[address] [place] [address] 71182 Color (U) yellow Normal NORMAL: YELLOW [facility] Comment on above: Performed By: #### 2 91088 #### [facility],[address] [place] [address] 80560 Crystals LM Nom (Urine sed) NONE Normal [facility] Comment on above: Performed By: #### 2 90885 #### [facility],[address] [place] [address] 00655 Epi Cells NONE Normal [facility] Comment on above: Performed By: #### 2 57451 #### [facility],[address] [place] [address] 83734 Glucose Ql (U) NORM Normal NORMAL: NORMAL [facility] Comment on above: Performed By: #### 2 35947 #### [facility],[address] [place] [address] 74076 Hemoglobin Ql (U) 10 Abnormal NORMAL: NEGATIVE [facility] Comment on above: Performed By: #### 2 37415 #### [facility],[address] [place] [address] 74718 Ketone 5 Abnormal NORMAL: NEGATIVE [facility] Comment on above: Performed By: #### 2 85347 #### [facility],[address] [place] [address] 73573 Leukocytes Negative Normal NORMAL: NEGATIVE [facility] Comment on above: Performed By: #### 2 58562 #### [facility],[address] [place], [place] [id number] Mucous NONE Normal [facility] Comment on above: Performed By: #### 2 77132 #### [facility],[address] [place] [address] Nitrite Ql (U) Negative Normal NORMAL: NEGATIVE [facility] Comment on above: Performed By: #### 2 11451 #### [facility],[address] [place] [address] pH (U) 7 [pH] Normal NORMAL: 5.0-8.0 [facility] Comment on above: Performed By: #### 2 59573 #### [facility],[address] [place] [address] Protein Ql (U) Negative Normal NORMAL: NEGATIVE [facility] Comment on above: Performed By: #### 2 65347 #### [facility],[address] [place] [address] 33659 Rbc 0-5 Normal 0-3/hpf [facility] Comment on above: Performed By: #### 2 12775 #### [facility],[address] [place], [place] [id number] Sp [place] 1.010 Normal NORMAL: 1.010-1.030 [facility] Comment on above: Performed By: #### 2 16683 #### [facility],[address] [place], [place] [id number] Specimen Type R Normal [facility] Comment on above: Performed By: #### 2 73748 #### [facility],[address] [place] [address] Urinalysis dipstick W Reflex Microscopic panel (U) SEE BELOW Normal [facility] Comment on above: Result Comment: MICR OSCOPIC Performed By: #### 2 98665 #### [facility],[address] [place] [address] Urobilinog NORM Normal NORMAL: NORMAL [facility] Comment on above: Performed By: #### 2 98776 #### [place] [address] Wbc NONE Normal 0-5/hpf [facility] Comment on above: Performed By: #### 2 70745 #### [facility],[address] [place] [address] Yeast NONE Normal [facility] Comment on above: Performed By: #### 2 48103 #### [place] [address] HGB A1C [CCL]on 09-03-2019 HbA1c (Bld) [Mass fraction] 111 mg/dL Normal [facility] Comment on above: Result Comment: eAG: (Estimated average glucose) is a calculated value from HgbA1c and is inside sales representative of the average blood glucose level in the last 2-3 month period. [facility] [address] [place] [address] Benny Mckeon III, M.D. [id number] Performed By: #### 2 [id number] #### [place] [address] HbA1c (Bld) [Mass fraction] 5.5 % Normal 4.3-5.6 [facility] Comment on above: Result Comment: Amer ican Diabetes Association guidelines indicate that patients with HgbA1c in the range 5.7-6.4% are at increased risk for development of diabetes, and intervention by lifestyle modification may be beneficial. HgbA1c greater or equal to 6.5% is considered diagnostic of diabetes. Performed By: #### 2 26352 #### [place] [address] Hemoglobin A1con 09-03-2019 HbA1c (Bld) [Mass fraction] 5.5 % Normal 4.3-5.6 [facility] Comment on above: Performed By: #### H BA1C #### [facility] Routine Lab [address] [place], [place] [address] HbA1c (Bld) [Mass fraction] 111 mg/dL Normal [facility] Comment on above: Performed By: #### H BA1C #### [facility] Routine Lab [address] [place], [place] [address] CMP with eGFRon 09-01-2019 Age - Reported 53 years Normal [facility] Comment on above: Performed By: #### 2 41957 #### [facility],[address] [place] [address] 00195 Albumin [Mass/Vol] 4.5 g/dL Normal 3.4 - 4.8 [facility] Comment on above: Performed By: #### 2 46635 #### [facility],[address] [place] [address] 39645 Albumin/Globulin [Mass ratio] 1.7 {ratio} High 0.9 - 1.6 [facility] Comment on above: Performed By: #### 2 86594 #### [facility],[address] [place] [address] 49393 ALK PHOS 71 U/L Normal 38 - 126 [facility] Comment on above: Performed By: #### 2 75103 #### [facility],[address] [place] [address] 26558 ALT/SGPT 18 U/L Normal 10 - 40 [facility] Comment on above: Performed By: #### 2 94279 #### [facility],[address] [place] [address] 29492 Anion gap [Moles/Vol] 10 mmol/L Normal 10 - 20 [facility] Comment on above: Performed By: #### 2 87049 #### [facility],[address] [place] [address] 63455 AST/SGOT 19 U/L Normal 13 - 39 [facility] Comment on above: Performed By: #### 2 89171 #### [facility],[address] [place] [address] 37050 B/C RATIO 21 ratio Normal 0 - 30 [facility] Comment on above: Performed By: #### 2 15190 #### [facility],[address] [place] [address] 15920 Bilirubin [Mass/Vol] 0.3 mg/dL Normal 0.0 - 1.5 [facility] Comment on above: Performed By: #### 2 59618 #### [facility],[address] [place] [address] 92341 Calcium [Mass/Vol] 9.5 mg/dL Normal 8.6 - 10.2 [facility] Comment on above: Performed By: #### 2 86681 #### [facility],[address] [place] [address] 30005 Chloride [Moles/Vol] 104 mmol/L Normal 98 - 107 [facility] Comment on above: Performed By: #### 2 35677 #### [facility],[address] [place] [address] 12402 CO2 [Moles/Vol] 29.0 mmol/L Normal 21.0 - 31.0 [facility] Comment on above: Performed By: #### 2 83583 #### [facility],[address] [place] [address] 91620 Creatinine [Mass/Vol] 1.0 mg/dL Normal 0.7 - 1.3 [facility] Comment on above: Performed By: #### 2 52205 #### [facility],[address] [place] [address] 92782 GFR/1.73 sq M predicted among non-blacks MDRD (S/P/Bld) [Vol rate/Area] mL/min/{1.73_m2} Normal 60 - 999 [facility] Comment on above: Performed By: #### 2 12250 #### [address] [address] Result Comment: ACCO RDING TO THE NATIONAL KIDNEY DISEASE EDUCATION PROGRAM(NKDE), A NORMAL eGFR IS A VALUE GREATER THAN OR EQUAL TO 60 ML/MIN/1.73 SQ METERS. CHRONIC KIDNEY DISEASE: <60mL/MIN/1.73 SQ METERS KIDNEY FAILURE: <15mL/MIN/1.73 SQ METERS THIS TEST SHOULD ONLY BE USED FOR PATIENTS 18 YEARS OF AGE AND OLDER. GFR/1.73 sq M predicted among non-blacks MDRD (S/P/Bld) [Vol rate/Area] Normal [facility] Comment on above: Result Comment: COMP REHENSIVE METABOLIC PANEL Performed By: #### 2 70650 #### [address] [address] Globulin (S) [Mass/Vol] 2.6 g/dL Normal 1.5 - 3.8 [facility] [place] Comment on above: Performed By: #### 2 06300 #### [address] [address] Glucose [Mass/Vol] 99 mg/dL Normal 74 - 106 [facility] Comment on above: Performed By: #### 2 99321 #### [address] [address] Potassium [Moles/Vol] 4.3 mmol/L Normal 3.5 - 5.1 [facility] Comment on above: Performed By: #### 2 55173 #### [address] [address] Protein [Mass/Vol] 7.1 g/dL Normal 6.4 - 8.3 [facility] Comment on above: Performed By: #### 2 99907 #### [address] [address] Sodium [Moles/Vol] 139 mmol/L Normal 136 - 145 [facility] Comment on above: Performed By: #### 2 90807 #### [facility],[address] [place] [address] 85275 Urea nitrogen [Mass/Vol] 21 mg/dL High 6 - 20 [facility] Comment on above: Performed By: #### 2 65777 #### [facility],[address] [place] [address] Vital Signs Date Time Vital Sign Value Performing Clinician Faci lity 01-03-2025 12:53-0400 Body temperature 97.5 [degF] Dr. Beryl Harrison DO Work Phone: [facility] 01-03-2025 12:53-0400 Diastolic blood pressure 78 mm[Hg] Dr. Beryl Harrison DO Work Phone: [facility] 01-03-2025 12:53-0400 Heart rate 59 /min Dr. Beryl Harrison DO Work Phone: [facility] 01-03-2025 12:53-0400 Respiratory rate 14 /min Dr. Beryl Harrison DO Work Phone: [facility] 01-03-2025 12:53-0400 SaO2% (BldA) [Mass fraction] 99 % Dr. Beryl Harrison DO Work Phone: [facility] 01-03-2025 12:53-0400 Systolic blood pressure 117 mm[Hg] Dr. Beryl Harrison DO Work Phone: [facility] 01-03-2025 10:27-0400 Body height 180.[address] Beryl Harrison DO Work Phone: [facility] 01-03-2025 10:27-0400 Body mass index (BMI) [Ratio] 30.4 kg/m2 Dr. Beryl Harrison DO Work Phone: [phone] [place] [address] 01-03-2025 10:27-0400 Body weight [address] Beryl Harrison DO Work Phone: [facility] 11-27-2024 11:57-0400 Body height 180.[address] Beryl Harrison DO Work Phone: [facility] 11-10-2024 12:52-0400 Body temperature 98.3 [degF] Dr. Beryl Harrison DO Work Phone: [facility] 11-10-2024 12:52-0400 Diastolic blood pressure 70 mm[Hg] Dr. Beryl Harrison DO Work Phone: 9([phone] [place] [address] 11-10-2024 12:52-0400 Heart rate 74 /min Dr. Beryl Harrison DO Work Phone: [phone] [place] [address] 11-10-2024 12:52-0400 Respiratory rate 18 /min Dr. Beryl Harrison DO Work Phone: [facility] 11-10-2024 12:52-0400 SaO2% (BldA) [Mass fraction] 97 % Dr. Beryl Harrison DO Work Phone: [facility] 11-10-2024 12:52-0400 Systolic blood pressure 111 mm[Hg] Dr. Beryl Harrison DO Work Phone: [facility] 11-09-2024 13:46-0400 Body height 180.[address] Beryl Harrison DO Work Phone: [facility] 11-09-2024 13:46-0400 Body weight 97.[address] Beryl Harrison DO Work Phone: [facility] 11-09-2024 10:45-0400 Inhaled oxygen flow rate 2 L/min Dr. Beryl Harrison DO Work Phone: [facility] 11-05-2024 16:34-0400 Body mass index (BMI) [Ratio] 29.9 kg/m2 Dr. Beryl Harrison DO Work Phone: [facility] Encounters Encounter Date Encounter Type Care Provider Facility Start: 01-03-2025 Non-patient / Non-visit Dr. Osvalod Hale MD -[facility] Work Phone: Start: 01-03-2025 End: 01-03-2025 Admission to same day surgery center Tim Treovr DO -Endoscopy Work Phone: Start: 01-03-2025 End: 01-03-[address] Beryl Harrison DO Work Phone: -Endoscopy Start: 11-28-2024 End: 11-28-2024 Patient encounter procedure Eleanor THOMAS -[facility] Work Phone: Start: 11-28-2024 End: 11-28-[address] Beryl Harrison DO Work Phone: -[facility] Start: 11-23-2024 End: 11-23-2024 Patient encounter procedure Evette Ochoa PA-C -[facility] Work Phone: Start: 11-23-2024 End: 11-23-[address] Beryl Harrison DO Work Phone: -[facility] Start: 11-10-2024 Non-patient / Non-visit Dr. Micky Meadows DO -[facility] Work Phone: Start: 11-09-2024 Non-patient / Non-visit Dr. Micky Meadows DO [facility] Work Phone: Start: 11-09-2024 Non-patient / Non-visit Dr. Boston Williamson MD -[facility] Start: 11-08-2024 Non-patient / Non-visit Dr. Micky Meadows DO [facility] Work Phone: Start: 11-08-2024 Non-patient / Non-visit Evette Ochoa PA-C [facility] Start: 11-07-2024 Non-patient / Non-visit Dr. Micky Meadows [facility] Work Phone: Start: 11-07-2024 Non-patient / Non-visit Tim Murray [facility] Start: 11-07-2024 Non-patient / Non-visit Dr. Boston Williamson MD [facility] Start: 11-06-2024 Non-patient / Non-visit Dr. Micky Meadows [facility] Work Phone: Start: 11-06-2024 Non-patient / Non-visit Timmanisha Murray [facility] Start: 11-06-2024 Non-patient / Non-visit Dr. Boston Williamson MD [facility] Start: 11-06-2024 ambulatory Osvaldo Hale Facility:[facility] Start: 11-06-2024 Non-patient / Non-visit Dr. Osvaldo Hale [facility] Work Phone: Start: 11-05-2024 End: 11-10-2024 Evaluation and management of inpatient Dr. Micky Meadows [facility] Work Phone: Start: 11-05-2024 Non-patient / Non-visit Dr. Kate Stark MD [facility] Work Phone: Start: 11-05-2024 ambulatory Beryl Harrison Facilit y:[facility] Start: 11-05-2024 End: 11-05-2024 Emergency department patient visit [facility] Start: 11-03-2024 End: 11-03-2024 ambulatory [facility] [place] Start: 11-02-2024 End: 11-02-2024 ambulatory [facility] Start: 10-13-2024 End: 10-13-2024 Emergency department patient visit TR[facility] Start: 09-01-2019 End: 09-01-2019 Patient encounter procedure BERYL SIM [facility] Procedures Date Procedure Procedure Detail Performing Clinician Start: 01-03-[address] Beryl Harrison DO Work Phone: Start: 01-03-2025 Fluoroscopy guided endoscopic retrograde cholangiopancreatography Dr. Beryl Harrison DO Work Phone: Start: 11-09-2024 Biliary tract contrast procedure Dr. Gem Harrison DO Work Phone: Start: 11-09-[address] Beryl Harrison DO Work Phone: Start: 11-09-2024 Total cholecystectomy and exploration of common bile duct Dr. Beryl Harrison DO Work Phone: Start: 11-09-[address] Beryl Harrison DO Work Phone: Start: 11-06-2024 End: 11-06-[address] Beryl Harrison DO Work Phone: Start: 11-06-[address] Beryl Harrison DO Work Phone: Start: 11-06-2024 End: 11-06-2024 Fluoroscopy guided endoscopic retrograde cholangiopancreatography Dr. Beryl Harrison DO Work Phone: Start: 11-06-2024 Computed tomography of abdomen and pelvis with intravenous contrast Dr. Beryl Harrison DO Work Phone: Start: 11-05-2024 Urinalysis [facility] Comment on above: Result Comment: URINALYSIS Performed By: #### 2 [id number] #### [place] [address] Start: 10-13-2024 Urinalysis [facility] Comment on above: Result Comment: URINALYSIS Performed By: #### 2 [id number] #### [place] [id number] History of cholecystectomy S/P cholecyste ctomy Evette Ochoa PA-C Comment on above: 11/09/2024 History of cholecystectomy S/P cholecyste ctomy Eleanor THOMAS Plan of Treatment Date Care Activity Detail Author Start: 01-03-2025 Anesthesia upper gi endoscopic px ercp ANES UPR GI NDSC PX ERCP [facility] Start: 01-03-2025 Ercp remove calculi/debris biliary/pancreas duct ERCP REMOVE DUCT CALCULI [facility] Start: 01-03-2025 Ercp remove foreign body/stent biliary/panc duct ERCP REMOVE FORGN BODY DUCT [facility] Start: 01-03-2025 Ercp w/sphincterotomy/papillot simona ENDO CHOLANGIOPANCREATOGRAPH [facility] Start: 01-03-2025 Patient discharge [facility] Start: 11-10-2024 Patient discharge [facility] Start: 11-09-2024 Oxygen therapy [facility] Start: 11-08-2024 Preoperative care [facility] Start: 11-06-2024 Following clinical pathway protocol [facility] Start: 11-05-2024 Application of intermittent pneumatic compression device [facility] Start: 11-05-2024 Referral to gastroenterology service [facility] Start: 11-05-2024 Referral to general surgeon [facility] Start: 11-05-2024 Admission procedure [facility] Start: 11-05-2024 Assessment of risk of venous thromboembolism [facility] Start: 11-05-2024 Insertion of catheter into peripheral vein [facility] Start: 11-05-2024 Providing care according to standard [facility] Start: 11-05-2024 Provision of activity privileges [facility] Start: 11-05-2024 [facility] Start: 11-05-2024 Following clinical pathway protocol [facility] Start: 11-05-2024 Patient referral to dietitian [facility] Payers Date Payer Category Payer Medicaid [id number] 2024 Medicare [id number] 2024 Self-pay 1965 Unknown [id number] 2.16.8 [id number] 1965 Unknown [id number] 2.16.8 40.1.237885.3.579.2.651 1965 Unknown [id number] 2.16.8 40.1.142006.3.579.2.651 1965 Unknown [id number] 2.16. 40.1.553258.3.579.2.651 Unknown [id number] Unknown [id number] 2.16.8 40.1.361667.3.579.2.462 Unknown [id number] 2.16.8 40.1.468534.3.579.2.462 Unknown [id number] 2.16.8 40.1.322142.3.579.2.462 Unknown [id number] 2.16.8 40.1.681922.3.579.2.462 Unknown [id number] 2.16.8 40.1.720218.3.579.2.462 Unknown [id number] 2.16.8 40.1.052014.3.579.2.462 Unknown [id number] 2.16.8 40.1.689988.3.579.2.462 Unknown [id number] 2.16.8 40.1.174718.3.579.2.462 Unknown [id number] 2.16.8 40.1.331275.3.579.2.462 Unknown [id number] 2.16.8 40.1.440165.3.579.2.462 Unknown [id number] 2.16.8 40.1.429315.3.579.2.462 Unknown [id number] 2.16.8 40.1.832818.3.579.2.462 Unknown [id number] 2.16.8 40.1.346677.3.579.2.462 Unknown [id number] 2.16.8 40.1.465779.3.579.2.462 Unknown [id number] 2.16.8 40.1.681916.3.579.2.462 Unknown [id number] 2.16.8 40.1.028325.3.579.2.462 Unknown [id number] 2.16.8 40.1.463166.3.579.2.462 Unknown [id number] 2.16.8 40.1.331410.3.579.2.462 Social History Date Type Detail Facility Start: 11-08-2024 End: 11-28-2024 Tobacco smoking status NHIS Ex-smoker (finding) [facility] Start: 1965 Sex Assigned At Male [facility] Start: 01-01-2025 Tobacco smoking stat us MTIS Smokes tobacco daily (finding) [facility] Sex Male [facility] Medical Equipment Procedure Code Equipment Code Equipment Original Text Equipment Identifier Dates Total cholecystectomy with exploration of common bile duct Ligation clip, synthetic polymer, non-bioabsorbable [id number] FDA Start: 11-09-2024 Total cholecystectomy with exploration of common bile duct Ligation clip, synthetic polymer, non-bioabsorbable ()[id number] FDA Start: 11-09-2024 ERCP (endoscopic retrograde cholangiopancreatograph y) RX STENT/10 X 5CM FDA Start: 11-06-2024 ERCP (endoscopic retrograde cholangiopancreatograph y) RX STENT/10 X 5CM FDA Start: 11-06-2024 ERCP (endoscopic retrograde cholangiopancreatograph y) RX STENT/10 X 5CM FDA Start: 11-06-2024 ERCP (endoscopic retrograde cholangiopancreatograph y) RX STENT/10 X 5CM FDA Start: 11-06-2024 Goals Date Patient Goal Desired Activity /State Functional Status Date Assessment Result Facility 11-10-2024 Functional status Ambulates;Stand and piv ot [facility] Work Phone: Mental Status Date Assessment Result Facility 01-03-2025 Cognitive function Voice/Name [facility] Work Phone: 11-10-2024 Cognitive function Voice/Name [facility] Work Phone: Clinical Notes 11-05-2024 to 01-03-2025 Note Date & Type Note Facility 01-03-2025 Consult note [facility] 01-03-2025 Procedure note [facility] 01-03-2025 Procedure note [facility] 01-03-2025 Radiology Diagnostic study note [facility] Imaging Services [address] [place] [address] ERCP Biliary/Pancreas MR#: [id number] Acct: [id number] Name: MICHAEL MEJIA Rep #: [id number] : 1965 M 59 From: Andreas Ballard MD PCP: SANDRINE Walker Status: DEP S DC Study:ERCP Biliary/Pancreas Date of Exam: 01/03/25 Exam# [id number] Ordering Dr: Abigail Murray DO PROCEDURE: ERCP BILIARY/PANCREAS 01/03/2025 REASON FOR EXAM: ERCP, STENT REMOVAL TECHNIQUE: Procedure Code: RADERCP Modality: DX Procedure: ERCP BILIARY/PANCREAS. Fluoroscopic services provided for ERCP. Radiation dose: 32.86 mGy. Fluoroscopy: 49 seconds. 7 images were submitted. COMPARISON: Prior study dated November 09, 2024. FINDINGS: Contrast is seen within the common bile duct. There was removal of the biliary stent. RAD/ERCP Biliary/Pancreas IMPRESSION: Removal of the biliary stent. Reading Location: [place] [address] CC: MANAGER TRAFFIC-C Trupti Painter; DO Tracy Conrad Biological Chemist: Signed [facility] 01-03-2025 Consult note Note Date/Time January 03, 2025 11:04am [facility] Medical Records Department [address] [facility] [place] [address] Pre-Anesthesia Evaluation 01/03/25 1057 MR#: [id number] Acct: [id number] Name: MICHAEL MEJIA Rep #:[id number] : 1965 59 From: [employer] PCP: SANDRINE Walker Status:REG S DC Y Race: C Location: AC AC11-1 ASA Classification* ASA Classification ASA Classification: 3 (The patient states that strenuous activity getting short of breath. I advised to check with the doctor of naprapathic medicine for a workup.) Assessment & Plan Anesthesia* Anesthesia Assessment Anesthesia Assessment: Discussed sedation and/or anesthesia options, risks, benefits, and alternatives with patient/parents/legal guardian/POA. Questions invited. The patient/parents/legal guardian/POA seems to understand and agrees to proceedwith anesthesia plan. Reviewed the physical assessment, medical history, allergy history and patient home medications list prior to surgery/procedure/anesthetic and documented any changes. Performed airway and anesthesia risk assessments. Anesthesia Type Anesthesia Type: General and MAC History Source History Obtained from:: Patient, Chart and Significant Other ( present) Anesthesia Focused Assessment* Temperature: 97.4 F Pulse Rate: 58 Blood Pressure: 116/82 Respiratory Rate: 16 Pulse Ox: 96 Oxygen Delivery Method: Room Air Airway Assessment Mouth opens: >3 cm Mallampati Score: II Teeth Condition: Chipped/Broken and Missing (Poor dentition) Neck Range of motion (ROM): Limited ROM Labs Anesthesia Preop lab: CBC WBC, (4.4-11.0) 8.4 K/mm3 11/09/24, 06:23 RBC, (4.6-6.2) 4.49 M/mm3 L 11/09/24, 06:23 Hgb, (13.0-16.5) 13.0 g/dL 11/09/24, 06:23 Hct, (40-54) 39.1 % L 11/09/24, 06:23 Plt Count, (150-450) 356 K/mm3 11/09/24, 06:23 CHEMISTRY Potassium, (3.3-5.1) 4.2 mmol/L 11/09/24, 06:23 Sodium, (133-145) 136 mmol/L 11/09/24, 06:23 BUN, (4-19) 13 mg/dL 11/09/24, 06:23 Creatinine, (0.70-1.20) 1.05 mg/dL 11/09/24, 06:23 Glucose, (70-99) 92 mg/dL 11/09/24, 06:23 COAG Pre-Assessment Diagnosis/Proposed Procedure Planned Operative Procedure(s): ERCP Anesthesia History Anesthesia History - deburr technician: Anesthesia History - deburr technician Hx Hospitalization Yes 01/01/25 10:56 Any Problems With Anesthesia No 01/01/25 10:56 Cholinesterase deficiency No 01/01/25 10:56 You/Your Family Experience No 01/01/25 10:56 fever (hyperthermia) with Relationship Recent Exposure to Contagious No 01/03/25 10:27 Disease Does patient have nerve No 01/01/25 10:56 stimulator Patient instructed to have device shut off --Does patient have Pacemaker No 01/03/25 10:27 or ICD? When Was Last Pacemaker Check QUESTION #4 FULL TEXT: You/Your Family Experience fever (hyperthermia) with Anesthesia Last Oral Intake Last Oral intake: Last Oral Intake NPO since 00:00 01/03/25 10:27 Meds taken in AM with sips of Yes 01/03/25 10:27 water? Meds patient instructed to take am of surgery PONV PONV - deburr technician: PONV - deburr technician Female No 01/01/25 10:56 HX of Motion Sickness No 01/01/25 10:56 HX of N/V After Surgery No 01/01/25 10:56 Non-Smoker No 01/01/25 10:56 Duration of Surgery greater No 01/01/25 10:56 than 60 minutes Number of Risk Factors PONV Score Height & Weight Height & Weight: Anesthesia: Height & Weight Height 5 ft 11 in 01/03/25 10:27 Weight: 99 kg 01/03/25 10:27 Body Mass Index (BMI) 30.4 01/03/25 10:27 Respiratory Assessment Respiratory Assessment - deburr technician: Respiratory Tract Infection Hx - deburr technician Hx Respiratory Tract Infection No 01/01/25 10:56 STOP Sleep Apnea STOP Sleep Apnea - deburr technician: STOP Sleep Apnea - deburr technician Hx Hypertension Yes: CONTROLLED ON MED 01/01/25 10:56 Hx Sleep Apnea No 01/01/25 10:56 CPAP BIPAP Do you snore loudly (louder No 01/01/25 10:56 than talking or can be heard Do you often feel tired/ No 01/01/25 10:56 fatigued/ sleepy during daytime? Has anyone observed you stop No 01/01/25 10:56 breathing during sleep? STOP Results Negative 01/01/25 10:56 QUESTION #5 FULL TEXT : Do you snore loudly (louder than talking or can be heard through closed doors)? 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 Specify any problems Hx of Preganancy in last 3 N/A 01/01/25 10:56 Months Nurse Filling Out Transfusion VCHRISTIN 01/01/25 10:56 & Questions: Date: 01/01/25 01/01/25 10:56 Time: 10:58 01/01/25 10:56 Patient unable to answer at this time (ie. confused, unrespo /Reproduction History /Reproductive History - deburr technician: /Reproductive Hx- deburr technician Hx Now No 01/01/25 10:56 Gestational Age (in weeks): EDC: Hx Hx Para Hx Section SAB No 01/01/25 10:56 Active Medications Active Medications: Current Medications Generic Name Dose Route Start Last Admin Trade Name Freq PRN Reason Stop Dose Admin Lactated Ringer's 1,000 mls @ 15 mls/hr 01/03/25 10:30 01/03/25 10:39 IV 15 mls/hr .Q48H GILBERTO Administration PFSH Medical History Wears glasses DVT (deep venous thrombosis) Gastric reflux Chewing tobacco dependence Former smoker Sleep apnea Shortness of breath on exertion Depression Anxiety HTN (hypertension) Appendicitis Home Medications ?Medication ?Instructions ?Recorded ?Last Taken ?Type cetirizine 10 mg tablet (Allergy 10 mg PO DAILY allerg ies 11/05/24 01/02/25 History Relief (cetirizine)) losartan 50 mg tablet 50 mg PO DAILY blood pressur e 11/05/24 01/03/25 History pantoprazole 40 mg tablet,delayed 40 mg PO BID gerd 01/03/25 History release sertraline 100 mg tablet 100 mg PO DAILY anxiety 10/2001/02/25 History aspirin 81 mg tablet 81 mg PO QDAY 11/28/2412/24 History Allergy/AdvReac Type Severity Reaction Status Date / Time azithromycin (From Zithromax) Allergy Severe Rash Verified 01/01/25 10:45 adhesive Allergy Intermediate Rash Verified 01/03/25 10:25 Surgical History Hx of appendectomy History of ERCP Hx of tonsillectomy S/P cholecystectomy H/O sinus surgery H/O hernia repair Social History Smoking Status: Current every day smoker tobacco type: smokeless tobacco alcohol intake: never substance use type: does not use what type of physical activity do you participate in: none Review of Systems (Anesthesia) ROS Narrative System reviewed and no additional complaints, except as documented. 01/03/25 1104 <Electronically signed by Manas Cantrell MD> Date _ Manas Cantrell MD Cosigner Signature: Date CC: ~ Signed [facility] Work Phone: 1(840) 961-416910-15-2025 History and physical note Author Tim [facility] Note Date/Time January 03, 2025 1 0:13am [facility] Medical Records Department [address] [place] [address] History & Physical Exam 01/03/25 1012 MR#: [id number] Acct: [id number] Name: MICHAEL MEJIA Rep #:[id number] : 1965 59 From: Tim Murray DO PCP: SLIM WalkerC Status:REG S DC Location: [place] [address] HPI - General General Date of Admission: 01/03/25 Date of Service: 01/03/25 Chief Complaint: Biliary stent removal HPI Narrative MICHAEL MEJIA, is a 59 M who presents [ Chief Complaint: Status post ERCP and cholecystectomy [facility] admission 11.05.24-11.12.24 with suspected choledocholithiasis transferred from outside facility. Patient with complaints of generalized abdominal pain and jaundice over the past 3 weeks. patient's bilirubin was 15, AST 226, ALP 599. Underwent ERCP. ERCP with stone causing obstruction. Underwent cholecystectomy. ERCP 11.06.24 the hepatic duct system, entire main bile duct, common bile duct and common hepatic duct were dilated, with a stone causing an obstruction. Choledocholithiasis was found. Complete removal was Accomplished by biliary sphincterotomy and balloon extraction. A biliary sphincterotomy was performed. The biliary tree was swept and pus, mucus and debris's were found, 1 temporary stent was placed into the common bile duct OV 11.28.24 patient here today for follow-up after ERCP with CBD stent placement. Patient denies any further abdominal pain and has been feeling well. ] [facility] Medical History Wears glasses DVT (deep venous thrombosis) Gastric reflux Chewing tobacco dependence Former smoker Sleep apnea Shortness of breath on exertion Depression Anxiety HTN (hypertension) Appendicitis Home Medications ?Medication ?Instructions ?Recorded ?Last Taken ?Type cetirizine 10 mg tablet (Allergy 10 mg PO DAILY allerg ies 11/05/24 Unknown History Relief (cetirizine)) losartan 50 mg tablet 50 mg PO DAILY blood pressur e 11/05/24 Unknown History pantoprazole 40 mg tablet,delayed 40 mg PO BID gerd Unknown History release sertraline 100 mg tablet 100 mg PO DAILY anxiety 10/20 10/13 Unknown History aspirin 81 mg tablet 81 mg PO QDAY 11/28/2412/24 History Allergy/AdvReac Type Severity Reaction Status Date / Time azithromycin (From Zithromax) Allergy Severe Rash Verified 01/01/25 10:45 adhesive Allergy Intermediate Rash Verified 01/01/25 10:45 Surgical History Hx of appendectomy History of ERCP Hx of tonsillectomy S/P cholecystectomy H/O sinus surgery H/O hernia repair Social History Smoking Status: Current every day smoker tobacco type: smokeless tobacco alcohol intake: never substance use type: does not use what type of physical activity do you participate in: none ROS Constitutional Constitutional: Denies fatigue, fever(s), poor appetite, weight gain or weight loss Gastrointestinal Gastrointestinal: Denies belching, bloating, change in bowel habits, change in stool character, chewing difficulty, coffee ground emesis, constipation, cramping, diarrhea, dyspepsia, dysphagia, early satiety, excessive flatus, fecalincontinence, heartburn, hematemesis, hematochezia, hemorrhoids, loose stools, melena, nausea, odynophagia, rectal bleeding, tenesmus, vomiting or weight changes Physical Exam Const alert, oriented x3, no apparent distress and healthy appearing General Appearance: cooperative GI normal to inspection, nondistended, normoactive bowel sounds, soft to palpation,non-tender and non-distended Percussion: normal to percussion Rectal Exam: deferred Assessment & Plan Assessment/Plan (1) S/P ERCP: PLAN: Assessment and Plan Assessment and Plan (1) S/P cholecystectomy: Status: Acute Plan: Michael is a 58-year-old male patient here today for follow-up after hospitalization in October 2024 for cholecystitis and choledocholithiasis. Patient underwent ERCP with stone removal and stent placement in the common bileduct. Following this he underwent cholecystectomy. Patient is here today to bescheduled for ERCP with stent removal. He is feeling well with no further abdominal pain. He did follow-up with general surgery recently. - ERCP with stent removal (2) S/P ERCP: Status: Acute 01/03/25 1013 <Electronically signed by Tim Murray DO> Cosigner Signature (if applicable): CC: SADNRINE Painter; Tim Murray DO~ Signed [facility] Work Phone: 1(363) 381-359510-15-2025 Consult note [facility] Medical Records Department [address] [place] [address] Pre-Anesthesia Evaluation 01/03/25 1057 MR#: [id number] Acct: [id number] Name: MICHAEL MEJIA Rep #:[id number] : 1965 59 From: Manas Painting PCP: Trupti Painter MANAGER TRAFFIC-C Status:REG S DC Y Race: C Location: [place] [address] ASA Classification* ASA Classification ASA Classification: 3 (The patient states that strenuous activity getting short of breath. I advised to check with the doctor of naprapathic medicine for a workup.) Assessment & Plan Anesthesia* Anesthesia Assessment Anesthesia Assessment: Discussed sedation and/or anesthesia options, risks, benefits, and alternatives with patient/parents/legal guardian/POA. Questions invited. The patient/parents/legal guardian/POA seems to understand and agrees to proceedwith anesthesia plan. Reviewed the physical assessment, medical history, allergy history and patient home medications list prior to surgery/procedure/anesthetic and documented any changes. Performed airway and anesthesia risk assessments. Anesthesia Type Anesthesia Type: General and MAC History Source History Obtained from:: Patient, Chart and Significant Other ( present) Anesthesia Focused Assessment* Temperature: 97.4 F Pulse Rate: 58 Blood Pressure: 116/82 Respiratory Rate: 16 Pulse Ox: 96 Oxygen Delivery Method: Room Air Airway Assessment Mouth opens: >3 cm Mallampati Score: II Teeth Condition: Chipped/Broken and Missing (Poor dentition) Neck Range of motion (ROM): Limited ROM Labs Anesthesia Preop lab: CBC WBC, (4.4-11.0) 8.4 K/mm3 11/09/24, 06:23 RBC, (4.6-6.2) 4.49 M/mm3 L 11/09/24, 06:23 Hgb, (13.0-16.5) 13.0 g/dL 11/09/24, 06:23 Hct, (40-54) 39.1 % L 11/09/24, 06:23 Plt Count, (150-450) 356 K/mm3 11/09/24, 06:23 CHEMISTRY Potassium, (3.3-5.1) 4.2 mmol/L 11/09/24, 06:23 Sodium, (133-145) 136 mmol/L 11/09/24, 06:23 BUN, (4-19) 13 mg/dL 11/09/24, 06:23 Creatinine, (0.70-1.20) 1.05 mg/dL 11/09/24, 06:23 Glucose, (70-99) 92 mg/dL 11/09/24, 06:23 COAG Pre-Assessment Diagnosis/Proposed Procedure Planned Operative Procedure(s): ERCP Anesthesia History Anesthesia History - deburr technician: Anesthesia History - deburr technician Hx Hospitalization Yes 01/01/25 10:56 Any Problems With Anesthesia No 01/01/25 10:56 Cholinesterase deficiency No 01/01/25 10:56 You/Your Family Experience No 01/01/25 10:56 fever (hyperthermia) with Relationship Recent Exposure to Contagious No 01/03/25 10:27 Disease Does patient have nerve No 01/01/25 10:56 stimulator Patient instructed to have device shut off --Does patient have Pacemaker No 01/03/25 10:27 or ICD? When Was Last Pacemaker Check QUESTION #4 FULL TEXT: You/Your Family Experience fever (hyperthermia) with Anesthesia Last Oral Intake Last Oral intake: Last Oral Intake NPO since 00:00 01/03/25 10:27 Meds taken in AM with sips of Yes 01/03/25 10:27 water? Meds patient instructed to take am of surgery PONV PONV - deburr technician: PONV - deburr technician Female No 01/01/25 10:56 HX of Motion Sickness No 01/01/25 10:56 HX of N/V After Surgery No 01/01/25 10:56 Non-Smoker No 01/01/25 10:56 Duration of Surgery greater No 01/01/25 10:56 than 60 minutes Number of Risk Factors PONV Score Height & Weight Height & Weight: Anesthesia: Height & Weight Height 5 ft 11 in 01/03/25 10:27 Weight: 99 kg 01/03/25 10:27 Body Mass Index (BMI) 30.4 01/03/25 10:27 Respiratory Assessment Respiratory Assessment - deburr technician: Respiratory Tract Infection Hx - deburr technician Hx Respiratory Tract Infection No 01/01/25 10:56 STOP Sleep Apnea STOP Sleep Apnea - deburr technician: STOP Sleep Apnea - deburr technician Hx Hypertension Yes: CONTROLLED ON MED 01/01/25 10:56 Hx Sleep Apnea No 01/01/25 10:56 CPAP BIPAP Do you snore loudly (louder No 01/01/25 10:56 than talking or can be heard Do you often feel tired/ No 01/01/25 10:56 fatigued/ sleepy during daytime? Has anyone observed you stop No 01/01/25 10:56 breathing during sleep? STOP Results Negative 01/01/25 10:56 QUESTION #5 FULL TEXT : Do you snore loudly (louder than talking or can be heard through closeddoors)? 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 Specify any problems Hx of Preganancy in last 3 N/A 01/01/25 10:56 Months Nurse Filling Out Transfusion VCHRISTIN 01/01/25 10:56 & Questions: Date: 01/01/25 01/01/25 10:56 Time: 10:58 01/01/25 10:56 Patient unable to answer at this time (ie. confused, unrespo /Reproduction History /Reproductive History - deburr technician: /Reproductive Hx- deburr technician Hx Now No 01/01/25 10:56 Gestational Age (in weeks): EDC: Hx Hx Para Hx Section SAB No 01/01/25 10:56 Active Medications Active Medications: Current Medications Generic Name Dose Route Start Last Admin Trade Name Freq PRN Reason Stop Dose Admin Lactated Ringer's 1,000 mls @ 15 mls/hr 01/03/25 10:30 01/03/25 10:39 IV 15 mls/hr .Q48H GILBERTO Administration PFSH Medical History Wears glasses DVT (deep venous thrombosis) Gastric reflux Chewing tobacco dependence Former smoker Sleep apnea Shortness of breath on exertion Depression Anxiety HTN (hypertension) Appendicitis Home Medications ?Medication ?Instructions ?Recorded ?Last Taken ?Type cetirizine 10 mg tablet (Allergy 10 mg PO DAILY allerg ies 11/05/24 01/02/25 History Relief (cetirizine)) losartan 50 mg tablet 50 mg PO DAILY blood pressur e 11/05/24 01/03/25 History pantoprazole 40 mg tablet,delayed 40 mg PO BID gerd 01/03/25 History release sertraline 100 mg tablet 100 mg PO DAILY anxiety 10/2001/02/25 History aspirin 81 mg tablet 81 mg PO QDAY 11/28/2412/24 History Allergy/AdvReac Type Severity Reaction Status Date / Time azithromycin (From Zithromax) Allergy Severe Rash Verified 01/01/25 10:45 adhesive Allergy Intermediate Rash Verified 01/03/25 10:25 Surgical History Hx of appendectomy History of ERCP Hx of tonsillectomy S/P cholecystectomy H/O sinus surgery H/O hernia repair Social History Smoking Status: Current every day smoker tobacco type: smokeless tobacco alcohol intake: never substance use type: does not use what type of physical activity do you participate in: none Review of Systems (Anesthesia) ROS Narrative System reviewed and no additional complaints, except as documented. 01/03/25 1104 MD> Date _ Manas Cantrell MD Cosigner Signature: Date CC: ~ Signed [place] [id number] History and physical note [facility] Medical Records Department [address] [place] [address] History & Physical Exam 01/03/25 1012 MR#: [id number] Acct: [id number] Name: MICHAEL MEJIA Rep #:[id number] : 1965 59 From: Tim Murray DO PCP: Trupti Painter NP-C Status:REG S DC Location: [place] [address] HPI - General General Date of Admission: 01/03/25 Date of Service: 01/03/25 Chief Complaint: Biliary stent removal HPI Narrative MICHAEL MEJIA, is a 59 M who presents [ Chief Complaint: Status post ERCP and cholecystectomy [facility] admission 8.-8 with suspected choledocholithiasis transferred from outside facility.Patient with complaints of generalized abdominal pain and jaundice over the past 3 weeks. patient'sbilirubin was 15, AST 226, ALP 599. Underwent ERCP. ERCP with stone causing obstruction. Underwent cholecystectomy. ERCP 11.06.24 the hepatic duct system, entire main bile duct, common bile duct and common hepatic duct were dilated, with a stone causing an obstruction. Choledocholithiasis was found. Complete removal was Accomplished by biliary sphincterotomy and balloon extraction. A biliary sphincterotomy was performed. The biliary tree was swept and pus, mucus and debris's were found, 1 temporary stent was placed into the common bile duct OV 11.28.24 patient here today for follow-up after ERCP with CBD stent placement. Patient denies any further abdominal pain and has been feeling well. ] [facility] Medical History Wears glasses DVT (deep venous thrombosis) Gastric reflux Chewing tobacco dependence Former smoker Sleep apnea Shortness of breath on exertion Depression Anxiety HTN (hypertension) Appendicitis Home Medications ?Medication ?Instructions ?Recorded ?Last Taken ?Type cetirizine 10 mg tablet (Allergy 10 mg PO DAILY allerg ies 11/05/24 Unknown History Relief (cetirizine)) losartan 50 mg tablet 50 mg PO DAILY blood pressur e 11/05/24 Unknown History pantoprazole 40 mg tablet,delayed 40 mg PO BID gerd Unknown History release sertraline 100 mg tablet 100 mg PO DAILY anxiety 10/20 10/13 Unknown History aspirin 81 mg tablet 81 mg PO QDAY 11/28/2412/24 History Allergy/AdvReac Type Severity Reaction Status Date / Time azithromycin (From Zithromax) Allergy Severe Rash Verified 01/01/25 10:45 adhesive Allergy Intermediate Rash Verified 01/01/25 10:45 Surgical History Hx of appendectomy History of ERCP Hx of tonsillectomy S/P cholecystectomy H/O sinus surgery H/O hernia repair Social History Smoking Status: Current every day smoker tobacco type: smokeless tobacco alcohol intake: never substance use type: does not use what type of physical activity do you participate in: none ROS Constitutional Constitutional: Denies fatigue, fever(s), poor appetite, weight gain or weight loss Gastrointestinal Gastrointestinal: Denies belching, bloating, change in bowel habits, change in stool character, chewing difficulty, coffee ground emesis, constipation, cramping, diarrhea, dyspepsia, dysphagia, earlysatiety, excessive flatus, fecalincontinence, heartburn, hematemesis, hematochezia, hemorrhoids, loose stools, melena, nausea, odynophagia, rectal bleeding, tenesmus, vomiting or weight changes Physical Exam Const alert, oriented x3, no apparent distress and healthy appearing General Appearance: cooperative GI normal to inspection, nondistended, normoactive bowel sounds, soft to palpation,non-tender and non-distended Percussion: normal to percussion Rectal Exam: deferred Assessment & Plan Assessment/Plan (1) S/P ERCP: PLAN: Assessment and Plan Assessment and Plan (1) S/P cholecystectomy: Status: Acute Plan: Michael is a 58-year-old male patient here today for follow-up after hospitalization in October 2024for cholecystitis and choledocholithiasis. Patient underwent ERCP with stone removal and stent placement in the common bileduct. Following this he underwent cholecystectomy. Patient is here today to b escheduled for ERCP with stent removal. He is feeling well with no further abdominal pain. He did follow-up with general surgery recently. - ERCP with stent removal (2) S/P ERCP: Status: Acute 01/03/25 1013 Cosigner Signature (if applicable): CC: SANDRINE Painter; Tim Murray DO~ Signed [facility]10-15-2025 [facility] Medical Records Department [address] [place] [address] History Physical Exam 01/03/25 1012 MR#: [id number] Acct: [id number] Name: MICHAEL MEJIA Rep #: [id number] : 1965 59 From: Tim Murray DO PCP: SANDRINE Walker Status:REG [facility] Location: [place] [address] HPI - General General Date of Admission: 01/03/25 Date of Service: 01/03/25 Chief Complaint: Biliary stent removal HPI Narrative MICHAEL MEJIA, is a 59 M who presents [ Chief Complaint: Status post ERCP and cholecystectomy [facility] admission 11.05.24-11.12.24 with suspected choledocholithiasis transferred from outside facility. Patient with complaints of generalized abdominal pain and jaundice over the past 3 weeks. patient's bilirubin was 15, AST 226, ALP 599. Underwent ERCP. ERCP with stone causing obstruction. Underwent cholecystectomy. ERCP 11.06.24 the hepatic duct system, entire main bile duct, common bile duct and common hepatic duct were dilated, with a stone causing an obstruction. Choledocholithiasis was found. Complete removal was Accomplished by biliary sphincterotomy and balloon extraction. A biliary sphincterotomy was performed. The biliary tree was swept and pus, mucus and debris's were found, 1 temporary stent was placed into the common bile duct OV 11.28.24 patient here today for follow-up after ERCP with CBD stent placement. Patient denies any further abdominal pain and has been feeling well. ] [facility] Medical History Wears glasses DVT (deep venous thrombosis) Gastric reflux Chewing tobacco dependence Former smoker Sleep apnea Shortness of breath on exertion Depression Anxiety HTN (hypertension) Appendicitis Home Medications ???Medication ???Instructions ???Recorded ???Last Taken ???Type cetirizine 10 mg tablet (Allergy 10 mg PO DAILY allergies 11/05/24 Unknown History Relief (cetirizine)) losartan 50 mg tablet 50 mg PO DAILY blood pressure 10/20 10/13 Unknown History pantoprazole 40 mg tablet,delayed 40 mg PO BID gerd 11/05/24 Unknow n History release sertraline 100 mg tablet 100 mg PO DAILY anxiety 11/05/24 U nknown History aspirin 81 mg tablet 81 mg PO QDAY 11/28/24 12/24/24 Hi story Allergy/AdvReac Type Severity Reaction Status Date / Time azithromycin (From Zithromax) Allergy Severe Rash Verified 01/01/25 10:45 adhesive Allergy Intermediate Rash Verified 01/01/25 10:45 Surgical History Hx of appendectomy History of ERCP Hx of tonsillectomy S/P cholecystectomy H/O sinus surgery H/O hernia repair Social History Smoking Status: Current every day smoker tobacco type: smokeless tobacco alcohol intake: never substance use type: does not use what type of physical activity do you participate in: none ROS Constitutional Constitutional: Denies fatigue, fever(s), poor appetite, weight gain or weight loss Gastrointestinal Gastrointestinal: Denies belching, bloating, change in bowel habits, change in stool character, chewing difficulty, coffee ground emesis, constipation, cramping, diarrhea, dyspepsia, dysphagia, early satiety, excessive flatus, fecal incontinence, heartburn, hematemesis, hematochezia, hemorrhoids, loose stools, melena, nausea, odynophagia, rectal bleeding, tenesmus, vomiting or weight changes Physical Exam Const alert, oriented x3, no apparent distress and healthy appearing General Appearance: cooperative GI normal to inspection, nondistended, normoactive bowel sounds, soft to palpation, non-tender and non- distended Percussion: normal to percussion Rectal Exam: deferred Assessment Plan Assessment/Plan (1) S/P ERCP: PLAN: Assessment and Plan Assessment and Plan (1) S/P cholecystectomy: Status: Acute Plan: Michael is a 58-year-old male patient here today for follow-up after hospitalization in October 2024 for cholecystitis and choledocholithiasis. Patient underwent ERCP with stone removal and stent placement in the common bile duct. Following this he underwent cholecystectomy. Patient is here today to be scheduled for ERCP with stent removal. He is feeling well with no further abdominal pain. He did follow-up with general surgery recently. - ERCP with stent removal (2) S/P ERCP: Status: Acute 01/03/25 1013 Cosigner Signature (if applicable): CC: SANDRINE Painter; Tim Murray, [facility]08-22-2025 Note. MICRO - Microbiology PROCEDURE: Blood Culture (bacterial) [*1] SOURCE: Blood BODY SITE: COLLECTED DATE/TIME: 11/05/2024 12:52 EDT RECEIVED DATE/TIME: 11/05/2024 16:34 EDT START DATE/TIME: 11/05/2024 16:35 EDT FREE TEXT SOURCE: FINAL REPORTS Final Report [] Verified Date/Time/Personnel: 11/10/2024 17:00 EDT Blood Culture: No Growth at 5 days. PRELIMINARY REPORTS Preliminary Report [] Verified Date/Time/Personnel: 11/05/2024 17:59 EDT Culture has been received in lab and is no growth to date. Routine cultures are held for 5 days. Performing Locations *1: This test was performed at: [address], [facility] , [facility]08-22-2025 Note. MICRO - Microbiology PROCEDURE: Blood Culture (bacterial) [*1] SOURCE: Blood BODY SITE: COLLECTED DATE/TIME: 11/05/2024 12:30 EDT RECEIVED DATE/TIME: 11/05/2024 16:35 EDT START DATE/TIME: 11/05/2024 16:35 EDT FREE TEXT SOURCE: FINAL REPORTS Final Report [] Verified Date/Time/Personnel: 11/10/2024 17:00 EDT Blood Culture: No Growth at 5 days. PRELIMINARY REPORTS Preliminary Report [] Verified Date/Time/Personnel: 11/05/2024 17:59 EDT Culture has been received in lab and is no growth to date. Routine cultures are held for 5 days. Performing Locations *1: This test was performed at: [facility], [address] [place] [address], [id number] , [facility] [id number] [facility] Medical Records Department [address] [place] [address] Discharge Summary 11/10/24 1213 MR#: [id number] Acct: [id number] Name: MICHAEL MEJIA . Rep #: [id number] : 1965 58 From: Micky Meadows DO PCP: Dr. Beryl Harrison DO Status:DIS IN Location: NC3 [id number] Providers Date of Admission: 11/05/24 Date of Discharge: 11/10/24 Primary Care Physician: Dr. Beryl Harrison, DO Consultations 11/05/24 17:33 Consult: Gastroenterology Routine Consulting Provider: [facility] Reason for Consult: jaundince, dilated CBD EMERGENT Consult: No MD Notified: Yes Date Notified: 11/06/24 Time Notified: 06:02 Method of Notification: Text Consult: General Surgery Routine Consulting Provider: Boston Williamson Reason for Consult: jaundice, gallbladder sludge, dilated CBD EMERGENT Consult: No MD Notified: Yes Date Notified: 11/05/24 Time Notified: 17:35 Method of Notification: Verbal Comments:: Dr. Kanwal hernandez w/ Dr. Williamson Reason For Visit: JAUNDICE, CONCERN FOR CHOLEDOCHOLITHIASIS Diagnosis Discharge Diagnosis (1) Choledocholithiasis: Status: Acute Code(s): K80.50 - Calculus of bile duct without cholangitis or cholecystitis without obstruction Plan 1. Choledocholithiasis with jaundice-patient underwent an ERCP with removal of stones and stent placement #2 essential hypertension-patient will remain on losartan #3 chronic anxiety-patient is on Zoloft #4 cholecystitis-patient remains on IV antibiotics, status postcholecystectomy postop day 0 Total clinical time spent by myself addressing the patient's medical issues, reviewing all of his data, and collaborating with patient's care team: 35 minutes Medications at Discharge Home Medications cetirizine 10 mg tablet (Allergy Relief (cetirizine)) 10 mg PO DAILY allergies 11/05/24 losartan 50 mg tablet 50 mg PO DAILY blood pressure 08/17/25 pantoprazole 40 mg tablet,delayed release 40 mg PO BID gerd 11/05/24 sertraline 100 mg tablet 100 mg PO DAILY anxiety 11/05/24 amoxicillin 500 mg-potassium clavulanate 125 mg tablet (Augmentin) 1 tab PO BID 5 days #10 tabs 11/10/24 oxycodone 5 mg tablet 5 mg PO Q4H PRN PRN Pain Score 4-10 5 days #10 tabs 11/10/24 Hospital Course Operations cholecystecomy and ERCP Procedures - Summary of Care Provided Minutes Spent on Discharge: 31 Hospital Course: This 58-year-old white male was directly admitted to [facility] from an outside emergency room due to elevated bilirubin and jaundice. Patient was admitted to [place] [address], labs from the outside emergency room showed a bilirubin of 14 along with elevated liver enzymes. Patient was started on IV fluids, he was seen in consultation with general surgery and GI. Patient underwent an ERCP with removal of stones in the common bile duct, a few days later patient underwent a laparoscopic cholecystectomy without any complications. Patient was kept on IV antibiotics during his hospital stay and his liver enzymes improved. On 11/10/2024, patient was seen and examined: On examination he appeared in good health and spirits. Vital signs as documented. Skin warm and dry and without overt rashes. Neck without JVD, neck was supple, trachea midline, thyroid was normal. Lungs clear bilaterally, normal air movement was noted. Heart exam notable for regular rhythm, normal sounds and absence of murmurs, rubs or gallops. Abdomen unremarkable and without evidence of organomegaly, masses, or abdominal aortic enlargement. Bowel sounds are present, abdomen is not distended. Extremities nonedematous, no cyanosis was noted, no clubbing was noted. Neuro: Cranial nerves II through XII are grossly intact, no focal motor deficits were noted, sensation to light touch and pinprick intact, motor exam 5/5 throughout. Psych: Patient is alert and oriented x3, he does not appear anxious or depressed, he does not appear agitated. Patient appears to be stable for discharge home on 11/10/2024 Weight / BMI Weight Weight: 97.5 kg Body Mass Index (BMI) 29.9 ABG / Lab / Microbiology Data 11/09/24 06:23 08/21/25 06:23 D/C Instructions May shower in (days): 1 Weight Bearing Status: Full weight bearing Additional Activity Instructions: Pain medication may cause nausea. You should typically eat light foods as you take your pain medications. Pain medication may also cause constipation. If this is a problem for you, please discuss with your doctor. Call your doctor if your incision/area has: Continuous Slow Oozing, Sudden Increased Bleeding, Increased Pain/ Swelling, Increased Redness and Foul Smelling Discharge Call your doctor if you observe: Fever of 101 or Higher Suture Line Care: Avoid Pulling/Pushing and Avoid Pinching/Bending Additional Dressing/Incision Instructions: Leave operative ba (more content not included)...[facility]08-22-2025 Discharge summary [facility] Medical Records Department [address] [place] [address] Instructions for Home/Discharge Instructions 11/10/24 1207 MR#: [id number] Acct: [id number] Name: MEJIAMICHAEL Sr. Rep #:[id number] : 1965 58 From: Micky Meadows DO PCP: Dr. Beryl Harrison DO Status:AD M IN Discharge Instructions DC O2, CPAP, BIPAP needs Home O2 Discharge instructions: No Dressing / Incision Discharge Activity: Return to Normal Activity May shower in (days): 1 Weight Bearing Status: Full weight bearing Additional Activity Instructions:: Pain medication may cause nausea. You should typically eat lightfoods as you take your pain medications. Pain medication may also cause constipation. If this is a problem for you, please discuss with yourdoctor. Dressing / Incision Call your doctor if your incision/area has: Continuous Slow Oozing, Sudden Increased Bleeding, Increased Pain/ Swelling, Increased Redness and Foul Smelling Discharge Call your doctor if you observe: Fever of 101 or Higher Suture Line Care: Avoid Pulling/Pushing and Avoid Pinching/Bending Additional Dressing/Incision Instructions:: Leave operative bandaids on for 2 days. When you removedressing, leave Steri-Strips on until your follow-up appointment, or until the Steri-Strips fall off on their own. Alternate Tylenol and ibuprofen for pain, oxycodone for breakthrough pain Follow Up Care Please Follow Up With: Boston Williamson MD Test Results: Test results from this visit will be discussed in further detail at your follow- up appointment, if applicable. Discharge Plan Admission Admit Date/Time: 11/05/24 16:58 Primary Reason for Your Visit: Cholecystitis, choledocholithiasis Attending Provider: Micky Meadows Primary Care Provider: Beryl Harrison Consulting Providers: Boston Williamson; Kate Stark Discharge Orders/Prescriptions Prescriptions: New oxycodone 5 mg Tablet 5 mg PO Q4H PRN PRN (Reason: Pain Score 4-10) 5 Days Qty: 10 0RF amoxicillin-pot clavulanate [Augmentin] 500-125 mg tablet 1 tab PO BID 5 Days Qty: 10 0RF Continued pantoprazole 40 mg tablet,delayed release (DR/EC) 40 mg PO BID sertraline 100 mg tablet 100 mg PO DAILY losartan 50 mg tablet 50 mg PO DAILY cetirizine [Allergy Relief (cetirizine)] 10 mg tablet 10 mg PO DAILY Referrals / Follow Up: Beryl Harrison DO [Primary Care Provider] - Boston Williamson MD [Med Staff - Active Staff] - See Referral Note (Call his office to make an appointment for follow-up) Disposition Disposition (needs filled in before D/C Order can be placed): Home, Self Care 11/10/24 1212Mark Dori EMERSON CC: Dr. Boston Williamson MD; Dr. Beryl Harrison DO; Dr. aKte Stark MD ~ Signed [facility]08-22-2025 Discharge summary [facility] Medical Records Department [address] [place] [address] Instructions for Home/Discharge Instructions 11/10/24 1154 MR#: [id number] Acct: [id number] Name: MEJIAMICHAEL Sr. Rep #:[id number] : 1965 58 From: Boston mckay MD PCP: Dr. Beryl Harrison DO Status:AD M IN Discharge Instructions DC O2, CPAP, BIPAP needs Home O2 Discharge instructions: No Dressing / Incision Discharge Activity: May Not Drive (for 2-3 days or while taking narcotic pain medications.) and - (Do not drive, work heavy equipment or sign legal documents for 24 hours.) May shower in (days): 1 Lifting Restrictions: 20 lbs for 2 weeks Additional Activity Instructions:: Pain medication may cause nausea. You should typically eat lightfoods as you take your pain medications. Pain medication may also cause constipation. If this is a problem for you, please discuss with yourdoctor. Dressing / Incision Call your doctor if your incision/area has: Continuous Slow Oozing, Sudden Increased Bleeding, Increased Pain/ Swelling, Increased Redness and Foul Smelling Discharge Call your doctor if you observe: Fever of 101 or Higher Suture Line Care: Avoid Pulling/Pushing and Avoid Pinching/Bending Remove Dressing in: 2 days Additional Dressing/Incision Instructions:: Leave operative bandaids on for 2 days. When you removedressing, leave Steri-Strips on until your follow-up appointment, or until the Steri-Strips fall off on their own. Alternate Tylenol and ibuprofen for pain, oxycodone for breakthrough pain Follow Up Care Please Follow Up With: Boston Williamson MD When: Please call to schedule 2 week follow up appointment. [phone] Test Results: Test results from this visit will be discussed in further detail at your follow- up appointment, if applicable. Discharge Plan Admission Admit Date/Time: 11/05/24 16:58 Attending Provider: Micky Meadows Primary Care Provider: Beryl Harrison Consulting Providers: Boston Williamson; Kate Stark Discharge Orders/Prescriptions Prescriptions: New oxycodone 5 mg Tablet 5 mg PO Q4H PRN PRN (Reason: Pain Score 4-10) 5 Days Qty: 10 0RF amoxicillin-pot clavulanate [Augmentin] 500-125 mg tablet 1 tab PO BID 5 Days Qty: 10 0RF Continued pantoprazole 40 mg tablet,delayed release (DR/EC) 40 mg PO BID sertraline 100 mg tablet 100 mg PO DAILY losartan 50 mg tablet 50 mg PO DAILY cetirizine [Allergy Relief (cetirizine)] 10 mg tablet 10 mg PO DAILY Referrals / Follow Up: Beryl Harrison DO [Primary Care Provider] - Disposition Disposition (needs filled in before D/C Order can be placed): Home, Self Care 11/10/24 1157Anthenny Williamson MD CC: Dr. Boston Williamson MD; Dr. Beryl Harrison DO; Dr. Kate Stark MD ~ Signed [facility]08-22-2025 Progress note Author Micky Meadows [facility] Note Date/Time November 10, 2024 7: 44am [facility] Medical Records Department [address] [place] [address] Progress Note - Hospitalist 11/09/248 MR#: [id number] Acct: [id number] Name: MICHAEL MEJIA Sr. Rep #:[id number] : 1965 58 From: Micky Meadows DO PCP: Dr. Beryl Harrison DO Status:AD M IN [facility] Reason for Visit Chief Complaint: Abd pain and jaundince Subjective Subjective Patient underwent cholecystectomy today, his gallbladder was very friable and gangrenous, he remains on IV antibiotics at this time, I talked briefly with general surgery about his care. Objective Data Objective Data Vital Signs: Vital Signs Temp Pulse Resp BP Pulse Ox O2 Del Method O2 Flow Rate 97.9 F 66 12 137/72 H 96 Room Air 2 11/09/24 15:48 11/09/24 15:48 11/09/24 15:48 11/09/24 15:48 11/09/24 15:48 11/09/24 15:48 11/09/24 10:45 Oxygen Flow Rate (L/min) 2 Oxygen Delivery Method Room Air Weight: 97.5 kg Body Mass Index (BMI) 29.9 Intake & Output: Intake and Output for Last 24 Hours 11/07/24 11/08/24 11/09/24 23:59 23:59 23:59 Intake Total 1058.75 / 1358.75 501 / 801 810 / 810 Output Total 1900 / 2500 1050 / 1950 1865 / 1865 Balance -841.25 / -1141.25 -549 / -1149 -1055 / -1055 Lab / Micro Data 11/09/24 06:23 11/09/24 06:23 Labs: Laboratory Results - last 24 hr 11/09/24 06:23: WBC 8.4, RBC 4.49 L, Hgb 13.0, Hct 39.1 L, MCV 87.1, MCH 29.0, MCHC 33.2, RDW Std Deviation 45.8 H, RDW Coeff of Selene 14.4, Plt Count 356, MPV 8.7, Immature Gran % (Auto) 0.500, Neut % (Auto) 63.5, Lymph % (Auto) 22.3, Ross% (Auto) 7.8, Eos % (Auto) 4.3, Baso % (Auto) 1.6 H, Absolute Neuts (auto) 5.3, Absolute Lymphs (auto) 1.86, Nucleated RBC % 0, Sodium 136, Potassium 4.2, Chloride 99, Carbon Dioxide 25.6, Anion Gap 11, BUN 13, Creatinine 1.05, Estim Creat Clear Calc 90.19, Est GFR (MDRD) Non-Af 82, BUN/Creatinine Ratio 12.6, Glucose 92, Calcium 8.7, Total Bilirubin 2.93 H, AST 67 H, ALT 130 H, Alkaline Phosphatase 323 H, Total Protein 6.3, Albumin 3.4 L, Globulin 2.9, Albumin/Globulin Ratio 1.2 Radiography Diagnostic Testing: Radiology Impression C-Arm Fluoroscopy 11/09/24 07:45 IMPRESSION: Intraoperative fluoroscopy was performed for ERCP. Numerous fluoroscopic imageswere also obtained. Also, cholelithiasis is seen. Reading Location: [place] [address] Cholangiogram 11/09/24 07:45 IMPRESSION: Intraoperative fluoroscopy was performed for ERCP. Numerous fluoroscopic imageswere also obtained. Also, cholelithiasis is seen. Reading Location: [place] [address] Physical Exam Narrative alert, oriented x3, no apparent distress and average body habitus General Appearance: cooperative, well kempt and well developed Orientation / Consciousness: awake, oriented to person, oriented to place and oriented to time HEENT normocephalic, head/scalp atraumatic and moist oral mucous membranes Eyes PERRL, EOMs intact bilaterally and conjunctivae normal Neck supple, no JVD, thyroid normal and no carotid bruits General: trachea midline Resp normal respiratory effort, no retractions, no use of accessory muscles and clearto auscultation bilaterally Auscultation: Negative for rales, rhonchi or wheezes Cardio regular rate, regular rhythm, S1 normal heart sound, S2 normal heart sound, no murmurs, no rub and no gallops GI normal to inspection, nondistended, normoactive bowel sounds, soft to palpation,non-tender and non-distended Extremity no clubbing, cyanosis or edema Skin Skin Narrative: Patient is jaundiced Neuro oriented x3, CN's II-XII intact bilaterally, moves all extremities, no focal motor deficits and no sensory deficits noted Sensorium / Orientation: awake and alert Speech: speech normal Psych affect normal Assessment & Plan Assessment/Plan (1) Choledocholithiasis: PLAN: Plan 1. Choledocholithiasis with jaundice-patient underwent an ERCP with removal of stones and stent placement, status postcholecystectomy postop day 0 #2 essential hypertension-patient will remain on losartan #3 chronic anxiety-patient is on Zoloft #4 Gangrenous cholecystitis-patient remains on IV antibiotics, status postcholecystectomy postop day 0 Total clinical time spent by myself addressing the patient's medical issues, reviewing all of his data, and collaborating with patient's care team: 35 minutes Charges/Coding Visit Charges Inpatient E&M: 05444 Subs Hosp L2 11/10/24 0744 <Electronically signed by Micky Meadows DO> Cosigner Signature (if applicable): CC: ~ Signed [facility] Work Phone: 1(206) 640-247308-22-2025 Progress note [facility] Medical Records Department [address] [place] [address] Progress Note - Hospitalist 11/09/24 1828 MR#: [id number] Acct: [id number] Name: MATEUSZMICHAEL A Sr. Rep #:[id number] : 1965 58 From: Micky Meadows DO PCP: Dr. Beryl Harrison DO Status:AD M IN Location: [facility] [id number] Reason for Visit Chief Complaint: Abd pain and jaundince Subjective Subjective Patient underwent cholecystectomy today, his gallbladder was very friable and gangrenous, he remains on IV antibiotics at this time, I talked briefly with general surgery about his care. Objective Data Objective Data Vital Signs: Vital Signs Temp Pulse Resp BP Pulse Ox O2 Del Method O2 Flow Rate 97.9 F 66 12 137/72 H 96 Room Air 2 11/09/24 15:48 11/09/24 15:48 11/09/24 15:48 11/09/24 15:48 11/09/24 15:48 11/09/24 15:48 11/09/24 10:45 Oxygen Flow Rate (L/min) 2 Oxygen Delivery Method Room Air Weight: 97.5 kg Body Mass Index (BMI) 29.9 Intake & Output: Intake and Output for Last 24 Hours 11/07/24 11/08/24 11/09/24 23:59 23:59 23:59 Intake Total 1058.75 / 1358.75 501 / 801 810 / 810 Output Total 1900 / 2500 1050 / 1950 1865 / 1865 Balance -841.25 / -1141.25 -549 / -1149 -1055 / -1055 Lab / Micro Data 11/09/24 06:23 11/09/24 06:23 Labs: Laboratory Results - last 24 hr 11/09/24 06:23: WBC 8.4, RBC 4.49 L, Hgb 13.0, Hct 39.1 L, MCV 87.1, MCH 29.0, MCHC 33.2, RDW Std Deviation 45.8 H, RDW Coeff of Selene 14.4, Plt Count 356, MPV 8.7, Immature Gran % (Auto) 0.500, Neut %(Auto) 63.5, Lymph % (Auto) 22.3, Ross% (Auto) 7.8, Eos % (Auto) 4.3, Baso % (Auto) 1.6 H, AbsoluteNeuts (auto) 5.3, Absolute Lymphs (auto) 1.86, Nucleated RBC % 0, Sodium 136, Potassium 4.2, Chloride 99, Carbon Dioxide 25.6, Anion Gap 11, BUN 13, Creatinine 1.05, Estim Creat Clear Calc 90.19, EstGFR (MDRD) Non-Af 82, BUN/Creatinine Ratio 12.6, Glucose 92, Calcium 8.7, Total Bilirubin 2.93 H, AST 67 H, ALT 130 H, Alkaline Phosphatase 323 H, Total Protein 6.3, Albumin 3.4 L, Globulin 2.9, Album in/Globulin Ratio 1.2 Radiography Diagnostic Testing: Radiology Impression C-Arm Fluoroscopy 11/09/24 07:45 IMPRESSION: Intraoperative fluoroscopy was performed for ERCP. Numerous fluoroscopic imageswere also obtained. Also, cholelithiasis is seen. Reading Location: [place] [address] Cholangiogram 11/09/24 07:45 IMPRESSION: Intraoperative fluoroscopy was performed for ERCP. Numerous fluoroscopic imageswere also obtained. Also, cholelithiasis is seen. Reading Location: [place] [address] Physical Exam Narrative alert, oriented x3, no apparent distress and average body habitus General Appearance: cooperative, well kempt and well developed Orientation / Consciousness: awake, oriented to person, oriented to place and oriented to time HEENT normocephalic, head/scalp atraumatic and moist oral mucous membranes Eyes PERRL, EOMs intact bilaterally and conjunctivae normal Neck supple, no JVD, thyroid normal and no carotid bruits General: trachea midline Resp normal respiratory effort, no retractions, no use of accessory muscles and clearto auscultation bilaterally Auscultation: Negative for rales, rhonchi or wheezes Cardio regular rate, regular rhythm, S1 normal heart sound, S2 normal heart sound, no murmurs, no rub and no gallops GI normal to inspection, nondistended, normoactive bowel sounds, soft to palpation,non-tender and non-distended Extremity no clubbing, cyanosis or edema Skin Skin Narrative: Patient is jaundiced Neuro oriented x3, CN's II-XII intact bilaterally, moves all extremities, no focal motor deficits and no sensory deficits noted Sensorium / Orientation: awake and alert Speech: speech normal Psych affect normal Assessment & Plan Assessment/Plan (1) Choledocholithiasis: PLAN: Plan 1. Choledocholithiasis with jaundice-patient underwent an ERCP with removal of stones and stent placement, status postcholecystectomy postop day 0 #2 essential hypertension-patient will remain on losartan #3 chronic anxiety-patient is on Zoloft #4 Gangrenous cholecystitis-patient remains on IV antibiotics, status postcholecystectomy postop day 0 Total clinical time spent by myself addressing the patient's medical issues, reviewing all of his data, and collaborating with patient's care team: 35 minutes Charges/Coding Visit Charges Inpatient E&M: 44495 Subs Hosp L2 11/10/24 0744 Cosigner Signature (if applicable): CC: ~ Signed [facility]08-21-2025 Consult note Author Gurpreet Navarro [facility] Note Date/Time November 09, 2024 9: 24am [facility] Medical Records Department [address] [place] [address] Anesthesia Postop Eval I 11/09/24922 MR#: [id number] Acct: [id number] Name: MICHAEL MEJIA Sr. Rep #:[id number] : 1965 58 From: Gurpreet Navarro CRNA PCP: Dr. Beryl Harrison, DO Status:AD M IN Y Race: C Location: [place] [address] Anesthesia: Postop Eval I Current Vital Signs Temperature: 97.5 F Pulse Rate: 75 Blood Pressure: 122/68 Respiratory Rate: 20 Pulse Ox: 97 Oxygen Delivery Method: Room Air Assessment Airway patent: Yes Spontaneous unlabored respirations: Yes Mental status: Awake and Calm nausea: No Vomiting: No Anesthesia Complication: No Fluid Hydration Crystalloid volume administer (ml): 1,400 Total IV fluid infused: 1,400 Progress Note Anesthesia document: Postop Eval 1 completed: Yes 11/09/24923 <Electronically signed by Gurpreet valentin CRNA> Date _ Gurpreet Navarro CRNA Cosigner Signature: Date CC: ~ Signed [facility] Work Phone: 1(568) 135-503308-21-2025 Consult note [facility] Medical Records Department [address] [place] [address] Anesthesia Postop Eval I 11/09/24922 MR#: [id number] Acct: [id number] Name: MICHAEL MEJIA Sr. Rep #:[id number] : 1965 58 From: Gurpreet Navarro CRNA PCP: Dr. Beryl Harrison, DO Status:AD M IN Y Race: C Location: [place] [address] Anesthesia: Postop Eval I Current Vital Signs Temperature: 97.5 F Pulse Rate: 75 Blood Pressure: 122/68 Respiratory Rate: 20 Pulse Ox: 97 Oxygen Delivery Method: Room Air Assessment Airway patent: Yes Spontaneous unlabored respirations: Yes Mental status: Awake and Calm nausea: No Vomiting: No Anesthesia Complication: No Fluid Hydration Crystalloid volume administer (ml): 1,400 Total IV fluid infused: 1,400 Progress Note Anesthesia document: Postop Eval 1 completed: Yes 11/09/2424 y BUTTONER> Date _ Gurpreet Navarro CRNA Cosigner Signature: Date CC: ~ Signed [facility]08-21-2025 Consult note Author Garry issa [facility] Note Date/Time November 09, 2024 7: 23am [facility] Medical Records Department [address] [place] [address] Pre-Anesthesia Evaluation 11/09/24 0723 MR#: [id number] Acct: [id number] Name: MICHAEL MEJIA Sr. Rep #:[id number] : 1965 58 From: Garry Turner MD PCP: Dr. Beryl Harrison, DO Status:AD M IN Y Race: C Location: [address] ASA Classification* ASA Classification ASA Classification: 3 Assessment & Plan Anesthesia* Anesthesia Assessment Anesthesia Assessment: Discussed sedation and/or anesthesia options, risks, benefits, and alternatives with patient/parents/legal guardian/POA. Questions invited. The patient/parents/legal guardian/POA seems to understand and agrees to proceedwith anesthesia plan. Reviewed the physical assessment, medical history, allergy history and patient home medications list prior to surgery/procedure/anesthetic and documented any changes. Performed airway and anesthesia risk assessments. Anesthesia Type Anesthesia Type: General History Source History Obtained from:: Patient and Chart Anesthesia Focused Assessment* Temperature: 97.7 F Pulse Rate: 66 Blood Pressure: 129/95 Respiratory Rate: 16 Pulse Ox: 95 Oxygen Delivery Method: Room Air Oxygen Flow Rate (L/min): 2 Airway Assessment Mouth opens: 2 cm Mallampati Score: II Teeth Condition: Chipped/Broken Neck Range of motion (ROM): Full ROM Labs Anesthesia Preop lab: CBC WBC 8.4 K/mm3 (4.4-11.0) 11/09/24 06:23 11/09/24 RBC 4.49 M/mm3 (4.6-6.2) L 11/09/24 06:23 11/09/24 Hgb 13.0 g/dL (13.0-16.5) 11/09/24 06:23 11/09/24 Hct 39.1 % (40-54) L 11/09/24 06:23 11/09/24 Plt Count 356 K/mm3 (150-450) 11/09/24 06:23 11/09/24 CHEMISTRY Potassium 4.2 mmol/L (3.3-5.1) 11/09/24 06:23 11/09/24 Sodium 136 mmol/L (133-145) 11/09/24 06:23 11/09/24 BUN 13 mg/dL (4-19) 11/09/24 06:23 11/09/24 Creatinine 1.05 mg/dL (0.70-1.20) 11/09/24 06:23 11/09/24 Glucose 92 mg/dL (70-99) 11/09/24 06:23 11/09/24 COAG Pre-Assessment Diagnosis/Proposed Procedure Planned Operative Procedure(s): Endoscopic retrograde cholangiopancreatography Anesthesia History Anesthesia History - deburr technician: Anesthesia History - deburr technician Hx Hospitalization Any Problems With Anesthesia No 11/09/24 02:23 Cholinesterase deficiency No 11/09/24 02:23 You/Your Family Experience No 11/09/24 02:23 fever (hyperthermia) with Relationship Recent Exposure to Contagious No 11/09/24 02:23 Disease Does patient have nerve No 11/09/24 02:23 stimulator Patient instructed to have No 11/09/24 02:23 device shut off --Does patient have Pacemaker No 11/09/24 05:09 or ICD? When Was Last Pacemaker Check QUESTION #4 FULL TEXT: You/Your Family Experience fever (hyperthermia) with Anesthesia Last Oral Intake Last Oral intake: Last Oral Intake NPO since 00:00 11/09/24 05:09 Meds taken in AM with sips of No 11/09/24 05:09 water? Meds patient instructed to take am of surgery PONV PONV - deburr technician: PONV - deburr technician Female HX of Motion Sickness HX of N/V After Surgery Non-Smoker Duration of Surgery greater than 60 minutes Number of Risk Factors PONV Score Height & Weight Height & Weight: Anesthesia: Height & Weight Height 5 ft 11 in 11/06/24 13:19 Weight: 97.5 kg 11/09/24 05:09 Body Mass Index (BMI) 29.9 11/05/24 16:34 Respiratory Assessment Respiratory Assessment - deburr technician: Respiratory Tract Infection Hx - deburr technician Hx Respiratory Tract Infection No 11/09/24 02:23 STOP Sleep Apnea STOP Sleep Apnea - deburr technician: STOP Sleep Apnea - deburr technician Hx Hypertension Yes 11/05/24 16:34 Hx Sleep Apnea No 11/06/24 13:00 CPAP BIPAP Do you snore loudly (louder Yes 11/05/24 16:34 than talking or can be heard Do you often feel tired/ Yes 11/05/24 16:34 fatigued/ sleepy during daytime? Has anyone observed you stop Yes 11/05/24 16:34 breathing during sleep? STOP Results Positive 11/06/24 12:45 QUESTION #5 FULL TEXT : Do you snore loudly (louder than talking or can be heard through closed doors)? 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 Specify any problems Hx of Preganancy in last 3 N/A 11/05/24 16:34 Months Nurse Filling Out Transfusion CDANTONE 11/05/24 16:34 & Questions: Date: 11/05/24 11/05/24 16:34 Time: 16:39 11/05/24 16:34 Patient unable to answer at this time (ie. confused, unrespo /Reproduction History /Reproductive History - deburr technician: /Reproductive Hx- deburr technician Hx Now No 11/09/24 02:23 Gestational Age (in weeks): EDC: Hx Hx Para Hx Section SAB No 11/09/24 02:23 Active Medications Active Medications: Current Medications Generic Name Dose Route Start Last Admin Trade Name Freq PRN Reason Stop Dose Admin Albuterol Sulfate 2.5 mg 11/05/24 16:56 Albuterol 2.5 Mg/3 Ml Vial.Neb. INHALATION Q2H PRN PRN SOB &/OR WHEEZING Sodium Chloride 250 mls @ 15 mls/hr 11/05/24 16:36 11/08/24 21:25 IV 0 mls/hr .[id number] PRN Infusion Saline Flush Sodium Chloride 250 mls @ 15 mls/hr 11/05/24 16:36 IV .[id number] PRN Additional IVPB Infusion Piperacillin Sod/Tazobactam 50 mls @ 12.5 mls/hr 11/05/24 22:00 11/09/24 05:01 Sod 3.375 gm/ Sodium Chloride IV 12.5 mls/hr Q8 GILBERTO Administration Sodium Chloride 250 mls @ 15 mls/hr 11/06/24 17:23 IV .[id number] PRN Saline Flush Sodium Chloride 250 mls @ 15 mls/hr 11/06/24 17:23 IV .[id number] PRN Additional IVPB Infusion Sodium Chloride 1,000 mls @ 15 mls/hr 11/09/24 07:00 11/09/24 07:10 IV 15 mls/hr .Q48H GILBERTO Administration Ketorolac Tromethamine 15 mg 11/05/24 16:56 Ketorolac 15 Mg/Ml Vial IV 11/10/24 16:58 Q6H PRN PRN Pain Score 1-10 Loratadine 10 mg 11/06/24 10:00 11/08/24 09:33 Loratadine 10 Mg Tablet PO 10 mg DAILY GILBERTO Administration Losartan Potassium 50 mg 11/06/24 10:00 11/08/24 09:33 Losartan Potassium 50 Mg Tablet PO 50 mg DAILY GILBERTO Administration Protocol Melatonin 10 mg 11/05/24 16:56 11/06/24 20:50 Melatonin 10 Mg Tablet PO 10 mg QHS PRN PRN Administration INSOMNIA Morphine Sulfate 2 - 4 mg 11/05/24 16:56 11/06/24 09:47 Morphine 2 Mg/Ml Syringe IV 2 mg Q3H PRN PRN Administration Pain Score 6-10 Morphine Sulfate 2 - 4 mg 11/05/24 17:15 Morphine 4 Mg/Ml Syringe IV Q3H PRN PRN Pain Score 6-10 Ondansetron HCl 4 mg 11/05/24 16:56 11/07/24 18:07 Ondansetron 4 Mg/2 Ml Vial IV 4 mg Q8H PRN PRN Administration NAUSEA/VOMITING Oxycodone HCl 5 mg 11/05/24 16:56 11/07/24 18:07 Oxycodone 5 Mg Tablet PO 5 mg Q4H PRN PRN Administration Pain Score 4-10 Pantoprazole Sodium 40 mg 11/05/24 22:00 11/08/24 21:23 Pantoprazole Sodium 40 Mg Tablet PO 40 mg BID GILBERTO Administration Senna/Docusate Sodium 2 tablet 11/05/24 16:56 Senna/Docusate Sodium 1 Tablet PO BID PRN PRN Constipation Sodium Chloride 10 - 40 ml 11/05/24 16:36 11/07/24 18:07 0.9% Saline Lock 10 Ml Syringe IV 30 ml UD PRN Administration SALINE FLUSH Sodium Chloride 10 - 40 ml 11/06/24 17:23 0.9% Saline Lock 10 Ml Syringe IV UD PRN SALINE FLUSH Throat Lozenges 2 lozenge 11/08/24 11:06 11/08/24 16:17 Benzocaine/Menthol 1 Lozenge MUCOUS MEM 2 lozenge Q2H PRN PRN Administration SORE THROAT PFSH Medical History Depression Anxiety HTN (hypertension) Appendicitis Home Medications ?Medication ?Instructions ?Recorded ?Last Taken ?Type cetirizine 10 mg tablet (Allergy 10 mg PO DAILY allerg ies 11/05/24 Unknown History Relief (cetirizine)) losartan 50 mg tablet 50 mg PO DAILY blood pressur e 11/05/24 Unknown History pantoprazole 40 mg tablet,delayed 40 mg PO BID gerd Unknown History release sertraline 100 mg tablet 100 mg PO DAILY anxiety 10/20 10/13 Unknown History Allergy/AdvReac Type Severity Reaction Status Date / Time azithromycin (From Zithromax) Allergy Severe Rash Verified 11/06/24 11:19 Surgical History H/O sinus surgery H/O hernia repair Social History Smoking Status: Former smoker Review of Systems (Anesthesia) ROS Narrative System reviewed and no additional complaints, except as documented. 11/09/24722 <Electronically signed by Garry Painting> Date _ Garry Turner MD Cosign Signature: Date CC: ~ Signed [facility] Work Phone: 1([phone] 729-918808-21-2025 Procedure note [facility] Medical Records Department [facility] [place] [address] Operative Report 11/09/24903 MR#: [id number] Acct: [id number] Name: MICHAEL MEJIA Sr. Rep #:[id number] : 1965 58 From: Boston mckay MD PCP: Dr. Breyl Harrison, DO Status:AD M IN Location: [facility]3 [id number] Operative Report (Standard) Operative Information Date of Procedure: 11/09/24 Pre-Operative Diagnosis: Choledocholithiasis with acute cholecystitis Post-Operative Diagnosis: Same Surgery/Procedure Performed: Laparoscopic cholecystectomy with cholangiograms snow ranger: Yes Stock Clerk Self Service Store: Vandana Gamboa Tasks completed by first officer: Opening & closing and Retracting Type of Anesthesia: General/Regional RN Documented Start/Stop Times: Operation Date: 11/09/24 07:30 Case Time Into Pre-Op 11/09/24 06:55 Anesthesia Start 11/09/24 07:28 Into Room 11/09/24 07:28 Out of Pre-Op 11/09/24 07:28 Procedure Start 11/09/24 07:47 Procedure Start Time: 07:47 Procedure Stop Time: 09:15 Select all DRAINS/GRAFTS/IMPLANTS that apply: Drains Drain details: SULAIMAN to bulb suction Estimated Blood Loss: 20 Specimen collected: Yes Description of specimen(s) removed: Gallbladder Description of surgery: After obtaining informed consent patient was brought back to the operating room. General anesthesiawas induced. The abdomen was prepped and draped in usual sterile fashion. A small midline incision was made superior to the umbilicus and deepened to the level of fascia. The fascia was elevated and incised. Nextthe peritoneum was elevated and incised in the same fashion. Finger sweep was performedand the Fox trocar was placed into the abdomen. The balloon was inflated. The abdomen was inflated to 15 mmHg. Next a camera was introduced into the abdomen and the abdomen was inspected. Next under direct visualization three 5-mm ports were placed one subxiphoid and 2 subcostal. Next the gallbladder was elevated and retracted toward the right shoulder. The peritoneum was stripped from the gallbladder. The gallbladder was very inflamedand the fat from the intra-abdominal cavity was densely adherent to the gallbladder. The gallbladder perforated upon grasping and there was purulent materialfilling it. There was some spillage of purulent material and stones. This was suctioned up. The infu ndibulum was located and retracted laterally. Next the triangle of Calot was dissected and the cystic duct and cystic artery were identified. Cholangiograms were performed. The Martinez clamp was used to clamp across the infundibulum and the catheter needle was inserted into the gallbladder. Under fluoroscopy contrast was instilled into the gallbladder and the common duct, cystic duct as well as proximal hepatic ducts were identified. There was good filling of the duodenum. There were no filling defects noted in the common bile duct. The clamp was removed as well as the needle and the infundibulum was grasped once more. Three hemolock clips were placed across thecystic duct. The cystic duct was then divided leaving 2 clips on the stump. The cystic artery was clipped and divided in the same fashion. The hook cauterywas then used to take the gallbladder off of the gallbladder bed. Hemostasiswas obtained. Gallbladder fossa was irrigated and no active bleeding or bile leakage was noted. Next the camera was introduced in the subxiphoid port. An Endopouch bag was placed through the umbilical port and the gallbladder was placed into it. The gallbladder was then removed through the umbilical incision. The camera was then reinserted through the umbilical port. The gallbladder fossa was inspected once more and noted to be hemostatic with no leaking bile. The abdomen was suctioned dry. The5 mm ports were removed under direct visualization. The umbilical port was then removed and the airwas removed from the abdomen. Next using an 0 Vicryl suture the umbilical fascia was closed in a [id number] fashion. The umbilical port site was irrigated local anesthetic was administered to all the incisions. All the incisions were closed with interrupted subcuticular 4-0 Monocryl sutures followed by Steri-Strips and dressings. The patient was awoken and taken to PACU in stable condition. Surgical Findings: Wound class IV Complications Complications: No Admit VTE Documentation VTE Mechan Device Prophylaxis: SCD's 11/09/24905 Cosigner Signature (if applicable): CC: Dr. Boston Williamson MD; Dr. Beryl Harrison DO; Dr. Kate Stark MD~ Signed [facility]08-21-2025 Radiology Diagnostic study note [facility] Imaging Services [address] [facility] [address] [place], [place] [id number] Cholangiogram/ O R,Initial MR#: [id number] Acct: [id number] Name: MICHAEL MEJIA Sr. Rep #: [id number] : 1965 M 58 From: Wale Chaidez MD PCP: Dr. Beryl Harrison, DO Status: AD M IN Study:Cholangiogram/ O R,Initial Date of Exam : 11/09/24 Exam# [id number] Ordering Dr: Boston Castle MD PROCEDURE: CHOLANGIOGRAM/ O R,INITIAL; O.R. FLUORO FOR C-ARM 11/09/2024 REASON FOR EXAM: CHOLECYSTECTOMY WITH IOC TECHNIQUE: CHOLANGIOGRAM/ O R,INITIAL; O.R. FLUORO FOR C-ARM Fluoroscopy time: 23.9 seconds. Dose: 16.72 mGy. COMPARISON: CT examination of 11/06/2024. RAD/Cholangiogram/ O R,Initial IMPRESSION: Intraoperative fluoroscopy was performed for ERCP. Numerous fluoroscopic imageswere also obtained. Also, cholelithiasis is seen. Reading Location: [place] [address] CC: Dr. Boston Williamson MD; Dr. Beryl Harrison DO ~ Biological Chemist: Signed [facility]08-21-2025 Radiology Diagnostic study note [facility] Imaging Services [address] [place] [id number] O.R. Fluoro for C-Arm MR#: [id number] Acct: [id number] Name: MICHAEL MEJIA Sr. Rep #: [id number] : 1965 M 58 From: Wale Chaidez MD PCP: Dr. Beryl Harrison, DO Status: AD M IN Study:O.R. Fluoro for C-Arm Date of Exam: 11/09/24 Exam# [id number] Ordering Dr: Boston Castle MD PROCEDURE: CHOLANGIOGRAM/ O R,INITIAL; O.R. FLUORO FOR C-ARM 11/09/2024 REASON FOR EXAM: CHOLECYSTECTOMY WITH IOC TECHNIQUE: CHOLANGIOGRAM/ O R,INITIAL; O.R. FLUORO FOR C-ARM Fluoroscopy time: 23.9 seconds. Dose: 16.72 mGy. COMPARISON: CT examination of 11/06/2024. RAD/O.R. Fluoro for C-Arm IMPRESSION: Intraoperative fluoroscopy was performed for ERCP. Numerous fluoroscopic imageswere also obtained. Also, cholelithiasis is seen. Reading Location: [place] [address] CC: Dr. Boston Williamson MD; Dr. Beryl Harrison, DO ~ Biological Chemist: Signed [facility]08-21-2025 Consult note [facility] Medical Records Department [address] [place] [address] Pre-Anesthesia Evaluation 11/09/24 0723 MR#: [id number] Acct: [id number] Name: MICHAEL MEJIA Sr. Rep #:[id number] : 1965 58 From: Garry Turner MD PCP: Dr. Beryl Harrison DO Status:AD M IN Y Race: C Location: [place] [address] ASA Classification* ASA Classification ASA Classification: 3 Assessment & Plan Anesthesia* Anesthesia Assessment Anesthesia Assessment: Discussed sedation and/or anesthesia options, risks, benefits, and alternatives with patient/parents/legal guardian/POA. Questions invited. The patient/parents/legal guardian/POA seems to understand and agrees to proceedwith anesthesia plan. Reviewed the physical assessment, medical history, allergy history and patient home medications list prior to surgery/procedure/anesthetic and documented any changes. Performed airway and anesthesia risk assessments. Anesthesia Type Anesthesia Type: General History Source History Obtained from:: Patient and Chart Anesthesia Focused Assessment* Temperature: 97.7 F Pulse Rate: 66 Blood Pressure: 129/95 Respiratory Rate: 16 Pulse Ox: 95 Oxygen Delivery Method: Room Air Oxygen Flow Rate (L/min): 2 Airway Assessment Mouth opens: 2 cm Mallampati Score: II Teeth Condition: Chipped/Broken Neck Range of motion (ROM): Full ROM Labs Anesthesia Preop lab: CBC WBC 8.4 K/mm3 (4.4-11.0) 11/09/24 06:23 11/09/24 RBC 4.49 M/mm3 (4.6-6.2) L 11/09/24 06:23 11/09/24 Hgb 13.0 g/dL (13.0-16.5) 11/09/24 06:23 11/09/24 Hct 39.1 % (40-54) L 11/09/24 06:23 11/09/24 Plt Count 356 K/mm3 (150-450) 11/09/24 06:23 11/09/24 CHEMISTRY Potassium 4.2 mmol/L (3.3-5.1) 11/09/24 06:23 11/09/24 Sodium 136 mmol/L (133-145) 11/09/24 06:23 11/09/24 BUN 13 mg/dL (4-19) 11/09/24 06:23 11/09/24 Creatinine 1.05 mg/dL (0.70-1.20) 11/09/24 06:23 11/09/24 Glucose 92 mg/dL (70-99) 11/09/24 06:23 11/09/24 COAG Pre-Assessment Diagnosis/Proposed Procedure Planned Operative Procedure(s): Endoscopic retrograde cholangiopancreatography Anesthesia History Anesthesia History - deburr technician: Anesthesia History - deburr technician Hx Hospitalization Any Problems With Anesthesia No 11/09/24 02:23 Cholinesterase deficiency No 11/09/24 02:23 You/Your Family Experience No 11/09/24 02:23 fever (hyperthermia) with Relationship Recent Exposure to Contagious No 11/09/24 02:23 Disease Does patient have nerve No 11/09/24 02:23 stimulator Patient instructed to have No 11/09/24 02:23 device shut off --Does patient have Pacemaker No 11/09/24 05:09 or ICD? When Was Last Pacemaker Check QUESTION #4 FULL TEXT: You/Your Family Experience fever (hyperthermia) with Anesthesia Last Oral Intake Last Oral intake: Last Oral Intake NPO since 00:00 11/09/24 05:09 Meds taken in AM with sips of No 11/09/24 05:09 water? Meds patient instructed to take am of surgery PONV PONV - deburr technician: PONV - deburr technician Female HX of Motion Sickness HX of N/V After Surgery Non-Smoker Duration of Surgery greater than 60 minutes Number of Risk Factors PONV Score Height & Weight Height & Weight: Anesthesia: Height & Weight Height 5 ft 11 in 11/06/24 13:19 Weight: 97.5 kg 11/09/24 05:09 Body Mass Index (BMI) 29.9 11/05/24 16:34 Respiratory Assessment Respiratory Assessment - deburr technician: Respiratory Tract Infection Hx - deburr technician Hx Respiratory Tract Infection No 11/09/24 02:23 STOP Sleep Apnea STOP Sleep Apnea - deburr technician: STOP Sleep Apnea - deburr technician Hx Hypertension Yes 11/05/24 16:34 Hx Sleep Apnea No 11/06/24 13:00 CPAP BIPAP Do you snore loudly (louder Yes 11/05/24 16:34 than talking or can be heard Do you often feel tired/ Yes 11/05/24 16:34 fatigued/ sleepy during daytime? Has anyone observed you stop Yes 11/05/24 16:34 breathing during sleep? STOP Results Positive 11/06/24 12:45 QUESTION #5 FULL TEXT : Do you snore loudly (louder than talking or can be heard through closeddoors)? 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 Specify any problems Hx of Preganancy in last 3 N/A 11/05/24 16:34 Months Nurse Filling Out Transfusion CDANTONE 11/05/24 16:34 & Questions: Date: 11/05/24 11/05/24 16:34 Time: 16:39 11/05/24 16:34 Patient unable to answer at this time (ie. confused, unrespo /Reproduction History /Reproductive History - deburr technician: /Reproductive Hx- deburr technician Hx Now No 11/09/24 02:23 Gestational Age (in weeks): EDC: Hx Hx Para Hx Section SAB No 11/09/24 02:23 Active Medications Active Medications: Current Medications Generic Name Dose Route Start Last Admin Trade Name Freq PRN Reason Stop Dose Admin Albuterol Sulfate 2.5 mg 11/05/24 16:56 Albuterol 2.5 Mg/3 Ml Vial.Neb. INHALATION Q2H PRN PRN SOB &/OR WHEEZING Sodium Chloride 250 mls @ 15 mls/hr 11/05/24 16:36 11/08/24 21:25 IV 0 mls/hr .[id number] PRN Infusion Saline Flush Sodium Chloride 250 mls @ 15 mls/hr 11/05/24 16:36 IV .[id number] PRN Additional IVPB Infusion Piperacillin Sod/Tazobactam 50 mls @ 12.5 mls/hr 11/05/24 22:00 11/09/24 05:01 Sod 3.375 gm/ Sodium Chloride IV 12.5 mls/hr Q8 GILBERTO Administration Sodium Chloride 250 mls @ 15 mls/hr 11/06/24 17:23 IV .[id number] PRN Saline Flush Sodium Chloride 250 mls @ 15 mls/hr 11/06/24 17:23 IV .[id number] PRN Additional IVPB Infusion Sodium Chloride 1,000 mls @ 15 mls/hr 11/09/24 07:00 11/09/24 07:10 IV 15 mls/hr .Q48H GILBERTO Administration Ketorolac Tromethamine 15 mg 11/05/24 16:56 Ketorolac 15 Mg/Ml Vial IV 11/10/24 16:58 Q6H PRN PRN Pain Score 1-10 Loratadine 10 mg 11/06/24 10:00 11/08/24 09:33 Loratadine 10 Mg Tablet PO 10 mg DAILY GILBERTO Administration Losartan Potassium 50 mg 11/06/24 10:00 11/08/24 09:33 Losartan Potassium 50 Mg Tablet PO 50 mg DAILY GILBERTO Administration Protocol Melatonin 10 mg 11/05/24 16:56 11/06/24 20:50 Melatonin 10 Mg Tablet PO 10 mg QHS PRN PRN Administration INSOMNIA Morphine Sulfate 2 - 4 mg 11/05/24 16:56 11/06/24 09:47 Morphine 2 Mg/Ml Syringe IV 2 mg Q3H PRN PRN Administration Pain Score 6-10 Morphine Sulfate 2 - 4 mg 11/05/24 17:15 Morphine 4 Mg/Ml Syringe IV Q3H PRN PRN Pain Score 6-10 Ondansetron HCl 4 mg 11/05/24 16:56 11/07/24 18:07 Ondansetron 4 Mg/2 Ml Vial IV 4 mg Q8H PRN PRN Administration NAUSEA/VOMITING Oxycodone HCl 5 mg 11/05/24 16:56 11/07/24 18:07 Oxycodone 5 Mg Tablet PO 5 mg Q4H PRN PRN Administration Pain Score 4-10 Pantoprazole Sodium 40 mg 11/05/24 22:00 11/08/24 21:23 Pantoprazole Sodium 40 Mg Tablet PO 40 mg BID GILBERTO Administration Senna/Docusate Sodium 2 tablet 11/05/24 16:56 Senna/Docusate Sodium 1 Tablet PO BID PRN PRN Constipation Sodium Chloride 10 - 40 ml 11/05/24 16:36 11/07/24 18:07 0.9% Saline Lock 10 Ml Syringe IV 30 ml UD PRN Administration SALINE FLUSH Sodium Chloride 10 - 40 ml 11/06/24 17:23 0.9% Saline Lock 10 Ml Syringe IV UD PRN SALINE FLUSH Throat Lozenges 2 lozenge 11/08/24 11:06 11/08/24 16:17 Benzocaine/Menthol 1 Lozenge MUCOUS MEM 2 lozenge Q2H PRN PRN Administration SORE THROAT PFSH Medical History Depression Anxiety HTN (hypertension) Appendicitis Home Medications ?Medication ?Instructions ?Recorded ?Last Taken ?Type cetirizine 10 mg tablet (Allergy 10 mg PO DAILY allerg ies 11/05/24 Unknown History Relief (cetirizine)) losartan 50 mg tablet 50 mg PO DAILY blood pressur e 11/05/24 Unknown History pantoprazole 40 mg tablet,delayed 40 mg PO BID gerd Unknown History release sertraline 100 mg tablet 100 mg PO DAILY anxiety 10/20 10/13 Unknown History Allergy/AdvReac Type Severity Reaction Status Date / Time azithromycin (From Zithromax) Allergy Severe Rash Verified 11/06/24 11:19 Surgical History H/O sinus surgery H/O hernia repair Social History Smoking Status: Former smoker Review of Systems (Anesthesia) ROS Narrative System reviewed and no additional complaints, except as documented. 11/09/24 0723 D> Date _ Garry Juarez Signature: Date CC: ~ Signed [facility]08-20-2025 Progress note Author Micky De [facility] Note Date/Time November 08, 2024 6: 06pm [facility] Medical Records Department [address] [place] [id number] Progress Note - Hospitalist 11/08/24 1804 MR#: [id number] Acct: [id number] Name: MICHAEL MEJIA Sr. Rep #:[id number] : 1965 58 From: Micky Meadows DO PCP: Dr. Beryl Harrison, Status:AD IN Location: [place] [address] Reason for Visit Chief Complaint: Abd pain and jaundince Subjective Subjective Patient was seen and examined, he appears in no distress. Patient's blood work was improved with a decrease in his bilirubin. Objective Data Objective Data Vital Signs: Vital Signs Temp Pulse Resp BP Pulse Ox O2 Del Method O2 Flow Rate 97.0 F L 72 16 115/73 99 Room Air 2 11/08/24 15:00 11/08/24 15:00 11/08/24 15:00 11/08/24 15:00 11/08/24 15:00 11/08/24 15:00 11/06/24 15:17 Oxygen Flow Rate (L/min) 2 Oxygen Delivery Method Room Air Weight: 97.5 kg Body Mass Index (BMI) 29.9 Intake & Output: Intake and Output for Last 24 Hours 11/06/24 11/07/24 11/08/24 23:59 23:59 23:59 Intake Total 2410 / 2410 1058.75 / 1358.75 400 / 400 Output Total 1353 / 1353 1900 / 2500 1050 / 1050 Balance 1057 / 1057 -841.25 / -1141.25 -650 / -650 Lab / Micro Data 11/08/24 06:16 11/08/24 06:16 Labs: Laboratory Results - last 24 hr 11/08/24 06:16: WBC 10.5, RBC 4.17 L, Hgb 12.2 L, Hct 35.9 L, MCV 86.1, MCH 29.3, MCHC 34.0, RDW Std Deviation 43.8, RDW Coeff of Selene 14.1, Plt Count 372, MPV 8.7, Immature Gran % (Auto) 0.600, Neut % (Auto) 71.8 H, Lymph % (Auto) 17.6L, Ross % (Auto) 6.9, Eos % (Auto) 2.2, Baso % (Auto) 0.9, Absolute Neuts (auto)7.6, Absolute Lymphs (auto) 1.85, Nucleated RBC % 0, Sodium 136, Potassium 3.8, Chloride 100, Carbon Dioxide 24.8, Anion Gap 12, BUN 12, Creatinine 1.02, Estim Creat Clear Calc 92.85, Est GFR (MDRD) Non-Af 85, BUN/Creatinine Ratio 12.2, Glucose 90, Calcium 8.7, Total Bilirubin 3.40 H, AST 51 H, ALT 124 H, Alkaline Phosphatase 343 H, Total Protein 5.9, Albumin 3.2 L, Globulin 2.7, Albumin/Globulin Ratio 1.2 Physical Exam Narrative alert, oriented x3, no apparent distress and average body habitus General Appearance: cooperative, well kempt and well developed Orientation / Consciousness: awake, oriented to person, oriented to place and oriented to time HEENT normocephalic, head/scalp atraumatic and moist oral mucous membranes Eyes PERRL, EOMs intact bilaterally and conjunctivae normal Neck supple, no JVD, thyroid normal and no carotid bruits General: trachea midline Resp normal respiratory effort, no retractions, no use of accessory muscles and clearto auscultation bilaterally Auscultation: Negative for rales, rhonchi or wheezes Cardio regular rate, regular rhythm, S1 normal heart sound, S2 normal heart sound, no murmurs, no rub and no gallops GI normal to inspection, nondistended, normoactive bowel sounds, soft to palpation,non-tender and non-distended Extremity no clubbing, cyanosis or edema Skin Skin Narrative: Patient is jaundiced Neuro oriented x3, CN's II-XII intact bilaterally, moves all extremities, no focal motor deficits and no sensory deficits noted Sensorium / Orientation: awake and alert Speech: speech normal Psych affect normal Assessment & Plan Assessment/Plan (1) Choledocholithiasis: PLAN: Plan 1. Choledocholithiasis with jaundice-patient underwent an ERCP with removal of stones and stent placement, he will undergo a cholecystectomy later on 11/09/2024 #2 essential hypertension-patient will remain on losartan #3 chronic anxiety-patient is on Zoloft #4 cholecystitis-patient remains on IV antibiotics Total clinical time spent by myself addressing the patient's medical issues, reviewing all of his data, and collaborating with patient's care team: 35 minutes Charges/Coding Visit Charges Inpatient E&M: 36947 Subs Hosp L2 11/08/24 180 <Electronically signed by Micky Meadows DO> Cosigner Signature (if applicable): CC: ~ Signed [facility] Work Phone: 1(860) 167-355308-20-2025 Progress note [facility] Medical Records Department [address] [place] [address] Progress Note - Hospitalist 11/08/24 180 MR#: [id number] Acct: [id number] Name: MATEUSZMICHAEL A Sr. Rep #:[id number] : 1965 58 From: Micky Meadows DO PCP: Dr. Beryl Harrison, DO Status:AD M IN [id number] Reason for Visit Chief Complaint: Abd pain and jaundince Subjective Subjective Patient was seen and examined, he appears in no distress. Patient's blood work was improved with a decrease in his bilirubin. Objective Data Objective Data Vital Signs: Vital Signs Temp Pulse Resp BP Pulse Ox O2 Del Method O2 Flow Rate 97.0 F L 72 16 115/73 99 Room Air 2 11/08/24 15:00 11/08/24 15:00 11/08/24 15:00 11/08/24 15:00 11/08/24 15:00 11/08/24 15:00 11/06/24 15:17 Oxygen Flow Rate (L/min) 2 Oxygen Delivery Method Room Air Weight: 97.5 kg Body Mass Index (BMI) 29.9 Intake & Output: Intake and Output for Last 24 Hours 11/06/24 11/07/24 11/08/24 23:59 23:59 23:59 Intake Total 2410 / 2410 1058.75 / 1358.75 400 / 400 Output Total 1353 / 1353 1900 / 2500 1050 / 1050 Balance 1057 / 1057 -841.25 / -1141.25 -650 / -650 Lab / Micro Data 11/08/24 06:16 11/08/24 06:16 Labs: Laboratory Results - last 24 hr 11/08/24 06:16: WBC 10.5, RBC 4.17 L, Hgb 12.2 L, Hct 35.9 L, MCV 86.1, MCH 29.3, MCHC 34.0, RDW Std Deviation 43.8, RDW Coeff of Selene 14.1, Plt Count 372, MPV 8.7, Immature Gran % (Auto) 0.600, Neut % (Auto) 71.8 H, Lymph % (Auto) 17.6L, Ross % (Auto) 6.9, Eos % (Auto) 2.2, Baso % (Auto) 0.9, Absolute Neuts (auto)7.6, Absolute Lymphs (auto) 1.85, Nucleated RBC % 0, Sodium 136, Potassium 3.8, Chloride 100, Carbon Dioxide 24.8, Anion Gap 12, BUN 12, Creatinine 1.02, Estim Creat Clear Calc 92.85, Est GFR (MDRD) Non-Af 85, BUN/Creatinine Ratio 12.2, Glucose 90, Calcium 8.7, Total Bilirubin 3.40 H, AST 51 H, ALT 124 H, Alkaline Phosphatase 343 H, Total Protein 5.9, Albumin 3.2 L, Globulin 2.7, Al bumin/Globulin Ratio 1.2 Physical Exam Narrative alert, oriented x3, no apparent distress and average body habitus General Appearance: cooperative, well kempt and well developed Orientation / Consciousness: awake, oriented to person, oriented to place and oriented to time HEENT normocephalic, head/scalp atraumatic and moist oral mucous membranes Eyes PERRL, EOMs intact bilaterally and conjunctivae normal Neck supple, no JVD, thyroid normal and no carotid bruits General: trachea midline Resp normal respiratory effort, no retractions, no use of accessory muscles and clearto auscultation bilaterally Auscultation: Negative for rales, rhonchi or wheezes Cardio regular rate, regular rhythm, S1 normal heart sound, S2 normal heart sound, no murmurs, no rub and no gallops GI normal to inspection, nondistended, normoactive bowel sounds, soft to palpation,non-tender and non-distended Extremity no clubbing, cyanosis or edema Skin Skin Narrative: Patient is jaundiced Neuro oriented x3, CN's II-XII intact bilaterally, moves all extremities, no focal motor deficits and no sensory deficits noted Sensorium / Orientation: awake and alert Speech: speech normal Psych affect normal Assessment & Plan Assessment/Plan (1) Choledocholithiasis: PLAN: Plan 1. Choledocholithiasis with jaundice-patient underwent an ERCP with removal of stones and stent placement, he will undergo a cholecystectomy later on 11/09/2024 #2 essential hypertension-patient will remain on losartan #3 chronic anxiety-patient is on Zoloft #4 cholecystitis-patient remains on IV antibiotics Total clinical time spent by myself addressing the patient's medical issues, reviewing all of his data, and collaborating with patient's care team: 35 minutes Charges/Coding Visit Charges Inpatient E&M: 87964 Subs Hosp L2 11/08/24 1806 Cosigner Signature (if applicable): CC: ~ Signed [facility]08-20-2025 Progress note Author Evette Ochoa [facility] Note Date/Time November 08, 2024 8: 04am [facility] Medical Records Department [address] [place] [address] Progress Note - Surgery 11/08/24 0759 MR#: [id number] Acct: [id number] Name: MICHAEL MEJIA Sr. Rep #:[id number] : 1965 58 From: Evette THOMAS PA-C PCP: Dr. Beryl Harrison, DO Status:AD M IN Location: MS3 [place]300-9 Subjective Subjective Patient evaluated resting comfortably in bed. He notes epigastric/right upper quadrant discomfort. He denies any nausea, vomiting. He notes his main compliantis sore throat. Objective Data Objective Data Vital Signs: Vital Signs Temp Pulse Resp BP Pulse Ox O2 Del Method O2 Flow Rate 97.8 F 58 L 15 125/72 H 96 Room Air 2 11/08/24 03:00 11/08/24 03:00 11/08/24 03:00 11/08/24 03:00 11/08/24 03:00 11/08/24 03:00 11/06/24 15:17 Oxygen Flow Rate (L/min) 2 Oxygen Delivery Method Room Air Weight: 214 lb 15.211 oz Body Mass Index (BMI) 29.9 Intake & Output: Intake and Output for Last 24 Hours 11/06/24 11/07/24 11/08/24 23:59 23:59 23:59 Intake Total 2410 / 2410 1058.75 / 1358.75 350 / 350 Output Total 1353 / 1353 1900 / 2500 1050 / 1050 Balance 1057 / 1057 -841.25 / -1141.25 -700 / -700 Lab / Micro Data 11/08/24 06:16 11/08/24 06:16 Labs: Laboratory Results - last 24 hr 11/08/24 06:16: WBC 10.5, RBC 4.17 L, Hgb 12.2 L, Hct 35.9 L, MCV 86.1, MCH 29.3, MCHC 34.0, RDW Std Deviation 43.8, RDW Coeff of Selene 14.1, Plt Count 372, MPV 8.7, Immature Gran % (Auto) 0.600, Neut % (Auto) 71.8 H, Lymph % (Auto) 17.6L, Ross % (Auto) 6.9, Eos % (Auto) 2.2, Baso % (Auto) 0.9, Absolute Neuts (auto)7.6, Absolute Lymphs (auto) 1.85, Nucleated RBC % 0, Sodium 136, Potassium 3.8, Chloride 100, Carbon Dioxide 24.8, Anion Gap 12, BUN 12, Creatinine 1.02, Estim Creat Clear Calc 92.85, Est GFR (MDRD) Non-Af 85, BUN/Creatinine Ratio 12.2, Glucose 90, Calcium 8.7, Total Bilirubin 3.40 H, AST 51 H, ALT 124 H, Alkaline Phosphatase 343 H, Total Protein 5.9, Albumin 3.2 L, Globulin 2.7, Albumin/Globulin Ratio 1.2 Physical Exam GI GI Narrative: Abdomen- soft, tenderness in the RUQ/epigastric region Assessment & Plan Assessment/Plan (1) Choledocholithiasis: PLAN: I am following this patient in conjunction with Dr. Ly in Dr. Williamson's absence. He has independently evaluated this patient. Labs reviewed. Liver enzymes trending down Plan for cholecystectomy tomorrow morning with Dr. Williamson Continue IV antibiotics Consent in place NPO after midnight Hopeful discharge tomorrow afternoon following the procedure We will continue to monitor this patient Charges/Coding Visit Charges Inpatient E&M: 79339 Subs Hosp L2 11/08/24 0804 <Electronically signed by Evette THOMAS PA-C> Cosigner Signature (if applicable): CC: ~ Signed [facility] Work Phone: 1(841) 943-415308-20-2025 Progress note [facility] Medical Records Department [address] [place] [address] Progress Note - Surgery 11/08/24 0759 MR#: [id number] Acct: [id number] Name: MICHAEL MEJIA Lesley Serrano. Rep #:[id number] : 1965 58 From: Evette THOMAS PA-C PCP: Dr. Beryl Harrison, DO Status:AD M IN [facility] Subject[facility] Subjective Patient evaluated resting comfortably in bed. He notes epigastric/right upper quadrant discomfort. He denies any nausea, vomiting. He notes his main compliantis sore throat. Objective Data Objective Data Vital Signs: Vital Signs Temp Pulse Resp BP Pulse Ox O2 Del Method O2 Flow Rate 97.8 F 58 L 15 125/72 H 96 Room Air 2 11/08/24 03:00 11/08/24 03:00 11/08/24 03:00 11/08/24 03:00 11/08/24 03:00 11/08/24 03:00 11/06/24 15:17 Oxygen Flow Rate (L/min) 2 Oxygen Delivery Method Room Air Weight: 214 lb 15.211 oz Body Mass Index (BMI) 29.9 Intake & Output: Intake and Output for Last 24 Hours 11/06/24 11/07/24 11/08/24 23:59 23:59 23:59 Intake Total 2410 / 2410 1058.75 / 1358.75 350 / 350 Output Total 1353 / 1353 1900 / 2500 1050 / 1050 Balance 1057 / 1057 -841.25 / -1141.25 -700 / -700 Lab / Micro Data 11/08/24 06:16 11/08/24 06:16 Labs: Laboratory Results - last 24 hr 11/08/24 06:16: WBC 10.5, RBC 4.17 L, Hgb 12.2 L, Hct 35.9 L, MCV 86.1, MCH 29.3, MCHC 34.0, RDW Std Deviation 43.8, RDW Coeff of Selene 14.1, Plt Count 372, MPV 8.7, Immature Gran % (Auto) 0.600, Neut % (Auto) 71.8 H, Lymph % (Auto) 17.6L, Ross % (Auto) 6.9, Eos % (Auto) 2.2, Baso % (Auto) 0.9, Absolute Neuts (auto)7.6, Absolute Lymphs (auto) 1.85, Nucleated RBC % 0, Sodium 136, Potassium 3.8, Chloride 100, Carbon Dioxide 24.8, Anion Gap 12, BUN 12, Creatinine 1.02, Estim Creat Clear Calc 92.85, Est GFR (MDRD) Non-Af 85, BUN/Creatinine Ratio 12.2, Glucose 90, Calcium 8.7, Total Bilirubin 3.40 H, AST 51 H, ALT 124 H, Alkaline Phosphatase 343 H, Total Protein 5.9, Albumin 3.2 L, Globulin 2.7, Al bumin/Globulin Ratio 1.2 Physical Exam GI GI Narrative: Abdomen- soft, tenderness in the RUQ/epigastric region Assessment & Plan Assessment/Plan (1) Choledocholithiasis: PLAN: I am following this patient in conjunction with Dr. yL in Dr. Williamson's absence. He hasindependently evaluated this patient. Labs reviewed. Liver enzymes trending down Plan for cholecystectomy tomorrow morning with Dr. Williamson Continue IV antibiotics Consent in place NPO after midnight Hopeful discharge tomorrow afternoon following the procedure We will continue to monitor this patient Charges/Coding Visit Charges Inpatient E&M: 44279 Subs Hosp L2 11/08/24 0804 Cosigner Signature (if applicable): CC: ~ Signed [facility]08-19-2025 Progress note Author Micky Meadows [facility] Note Date/Time November 07, 2024 6: 54pm [facility] Medical Records Department [address] [place] [address] Progress Note - Hospitalist 11/07/24 185 MR#: [id number] Acct: [id number] Name: MICHAEL MEJIA Lesley Sr. Rep #:[id number] : 1965 58 From: Micky Meadows DO PCP: Dr. Beryl Harrison, DO Status:AD IN Location: [place] [address]-1 Reason for Visit Chief Complaint: Abd pain and jaundince Subjective Subjective Patient was seen and examined today, he voices no complaints. Objective Data Objective Data Vital Signs: Vital Signs Temp Pulse Resp BP Pulse Ox O2 Del Method O2 Flow Rate 97.8 F 75 16 123/78 H 98 Room Air 2 11/07/24 15:14 11/07/24 15:14 11/07/24 15:14 11/07/24 15:14 11/07/24 15:14 11/07/24 15:14 11/06/24 15:17 Oxygen Flow Rate (L/min) 2 Oxygen Delivery Method Room Air Weight: 97.5 kg Body Mass Index (BMI) 29.9 Intake & Output: Intake and Output for Last 24 Hours 11/05/24 11/06/24 11/07/24 23:59 23:59 23:59 Intake Total 200 / 200 2410 / 2410 1008.75 / 1008.75 Output Total 1353 / 1353 1900 / 1900 Balance 200 / 200 1057 / 1057 -891.25 / -891.25 Lab / Micro Data 11/06/24 05:17 11/06/24 05:17 Physical Exam Narrative alert, oriented x3, no apparent distress and average body habitus General Appearance: cooperative, well kempt and well developed Orientation / Consciousness: awake, oriented to person, oriented to place and oriented to time HEENT normocephalic, head/scalp atraumatic and moist oral mucous membranes Eyes PERRL, EOMs intact bilaterally and conjunctivae normal Neck supple, no JVD, thyroid normal and no carotid bruits General: trachea midline Resp normal respiratory effort, no retractions, no use of accessory muscles and clearto auscultation bilaterally Auscultation: Negative for rales, rhonchi or wheezes Cardio regular rate, regular rhythm, S1 normal heart sound, S2 normal heart sound, no murmurs, no rub and no gallops GI normal to inspection, nondistended, normoactive bowel sounds, soft to palpation,non-tender and non-distended Extremity no clubbing, cyanosis or edema Skin Skin Narrative: Patient is jaundiced Neuro oriented x3, CN's II-XII intact bilaterally, moves all extremities, no focal motor deficits and no sensory deficits noted Sensorium / Orientation: awake and alert Speech: speech normal Psych affect normal Assessment & Plan Assessment/Plan (1) Choledocholithiasis: PLAN: Plan 1. Choledocholithiasis with jaundice-patient underwent an ERCP with removal of stones and stent placement, he will undergo a cholecystectomy later on in the week, I will repeat the patient's CMP tomorrow #2 essential hypertension-patient will remain on losartan #3 chronic anxiety-patient is on Zoloft #4 cholecystitis-patient remains on IV antibiotics Total clinical time spent by myself addressing the patient's medical issues, reviewing all of his data, and collaborating with patient's care team: 35 minutes Charges/Coding Visit Charges Inpatient E&M: 81567 Subs Hosp L2 11/07/241853 <Electronically signed by Micky Meadows DO> Cosigner Signature (if applicable): CC: ~ Signed [facility] Work Phone: 1(404) 960-784708-19-2025 Progress note [facility] Medical Records Department [address] [place] [address] Progress Note - Hospitalist 11/07/241851 MR#: [id number] Acct: [id number] Name: MICHAEL MEJIA Sr. Rep #:[id number] : 1965 58 From: Micky Meadows DO PCP: Dr. Beryl Harrison, DO Status:AD M IN Location: [place]3 DA679-2 Reason for Visit Chief Complaint: Abd pain and jaundince Subjective Subjective Patient was seen and examined today, he voices no complaints. Objective Data Objective Data Vital Signs: Vital Signs Temp Pulse Resp BP Pulse Ox O2 Del Method O2 Flow Rate 97.8 F 75 16 123/78 H 98 Room Air 2 11/07/24 15:14 11/07/24 15:14 11/07/24 15:14 11/07/24 15:14 11/07/24 15:14 11/07/24 15:14 11/06/24 15:17 Oxygen Flow Rate (L/min) 2 Oxygen Delivery Method Room Air Weight: 97.5 kg Body Mass Index (BMI) 29.9 Intake & Output: Intake and Output for Last 24 Hours 11/05/24 11/06/24 11/07/24 23:59 23:59 23:59 Intake Total 200 / 200 2410 / 2410 1008.75 / 1008.75 Output Total 1353 / 1353 1900 / 1900 Balance 200 / 200 1057 / 1057 -891.25 / -891.25 Lab / Micro Data 11/06/24 05:17 11/06/24 05:17 Physical Exam Narrative alert, oriented x3, no apparent distress and average body habitus General Appearance: cooperative, well kempt and well developed Orientation / Consciousness: awake, oriented to person, oriented to place and oriented to time HEENT normocephalic, head/scalp atraumatic and moist oral mucous membranes Eyes PERRL, EOMs intact bilaterally and conjunctivae normal Neck supple, no JVD, thyroid normal and no carotid bruits General: trachea midline Resp normal respiratory effort, no retractions, no use of accessory muscles and clearto auscultation bilaterally Auscultation: Negative for rales, rhonchi or wheezes Cardio regular rate, regular rhythm, S1 normal heart sound, S2 normal heart sound, no murmurs, no rub and no gallops GI normal to inspection, nondistended, normoactive bowel sounds, soft to palpation,non-tender and non-distended Extremity no clubbing, cyanosis or edema Skin Skin Narrative: Patient is jaundiced Neuro oriented x3, CN's II-XII intact bilaterally, moves all extremities, no focal motor deficits and no sensory deficits noted Sensorium / Orientation: awake and alert Speech: speech normal Psych affect normal Assessment & Plan Assessment/Plan (1) Choledocholithiasis: PLAN: Plan 1. Choledocholithiasis with jaundice-patient underwent an ERCP with removal of stones and stent placement, he will undergo a cholecystectomy later on in the week, I will repeat the patient's CMP tomorrow #2 essential hypertension-patient will remain on losartan #3 chronic anxiety-patient is on Zoloft #4 cholecystitis-patient remains on IV antibiotics Total clinical time spent by myself addressing the patient's medical issues, reviewing all of his data, and collaborating with patient's care team: 35 minutes Charges/Coding Visit Charges Inpatient E&M: 63697 Subs Hosp L2 11/07/24 8534 Cosigner Signature (if applicable): CC: ~ Signed [facility]08-19-2025 Progress note Author Tim Murray [facility] Note Date/Time November 07, 2024 3: 59pm [facility] Medical Records Department [address] [place] [address] Progress Note 11/07/24 1558 MR#: [id number] Acct: [id number] Name: MICHAEL MEJIA Lesley Serrano. Rep #:[id number] : 1965 58 From: Tim Murray DO PCP: Dr. Beryl Harrison, Status:AD M IN Location: [place] [address] Progress Note Patient underwent ERCP with stone removal yesterday. He is not having any abdominal pain. He is scheduled for cholecystectomy on 11/09/2024. Physical Exam Const alert, oriented x3, no apparent distress and average body habitus General Appearance: cooperative, well kempt and well developed Orientation / Consciousness: awake, oriented to person, oriented to place and oriented to time HEENT normocephalic, head/scalp atraumatic and moist oral mucous membranes Eyes PERRL, EOMs intact bilaterally and conjunctivae normal Neck supple, no JVD, thyroid normal and no carotid bruits General: trachea midline Resp normal respiratory effort, no retractions, no use of accessory muscles and clearto auscultation bilaterally Auscultation: Negative for rales, rhonchi or wheezes Cardio regular rate, regular rhythm, S1 normal heart sound, S2 normal heart sound, no murmurs, no rub and no gallops GI normal to inspection, nondistended, normoactive bowel sounds, soft to palpation,non-tender and non-distended Extremity no clubbing, cyanosis or edema Skin Skin Narrative: Patient is jaundiced Neuro oriented x3, CN's II-XII intact bilaterally, moves all extremities, no focal motor deficits and no sensory deficits noted Sensorium / Orientation: awake and alert Speech: speech normal Psych affect normal Assessment & Plan Assessment/Plan (1) Choledocholithiasis: (2) Jaundice: PLAN: Patient is status post ERCP with stone removal and stent placement. Recommend repeat LFTs. Continue current diet. The patient for cholecystectomy on 11/07/2024. Visit Charges Inpatient E&M: 92467 Subs Hosp L2 11/07/24 1388 <Electronically signed by Tim Murray DO> Tim Murray DO Cosigner Signature (if applicable): CC: ~ Signed [facility] Work Phone: 1([phone] 468-106308-19-2025 Progress note Author Boston Williamson [facility] Note Date/Time November 07, 2024 2: 08pm [facility] Medical Records Department [address] [place] [address] Progress Note - Surgery 11/07/24 1407 MR#: [id number] Acct: [id number] Name: MICHAEL MEJIA Sr. Rep #:[id number] : 1965 58 From: Boston mckay MD PCP: Dr. Beryl Harrison, DO Status:AD M IN Location: [place] [address] Subjective Subjective Patient is doing well and tolerating a diet Objective Data Objective Data Vital Signs: Vital Signs Temp Pulse Resp BP Pulse Ox O2 Del Method O2 Flow Rate 98.0 F 91 16 122/76 H 94 Room Air 2 11/07/24 08:47 11/07/24 08:47 11/07/24 08:47 11/07/24 08:47 11/07/24 08:47 11/07/24 08:47 11/06/24 15:17 Oxygen Flow Rate (L/min) 2 Oxygen Delivery Method Room Air Weight: 214 lb 15.211 oz Body Mass Index (BMI) 29.9 Intake & Output: Intake and Output for Last 24 Hours 11/05/24 11/06/24 11/07/24 23:59 23:59 23:59 Intake Total 200 / 200 2410 / 2410 1008.5 / 1008.5 Output Total 1353 / 1353 700 / 700 Balance 200 / 200 1057 / 1057 308.5 / 308.5 Lab / Micro Data 11/06/24 05:17 11/06/24 05:17 Physical Exam Const oriented x3 and no apparent distress Resp normal respiratory effort GI soft to palpation and non-tender Assessment & Plan Assessment/Plan (1) Choledocholithiasis: PLAN: Patient had ERCP with stone removal and stent placement. He is doing well. I have him on for morning at 730 for laparoscopic cholecystectomy. I discussed the procedure in detail with the patient. I discussed the risks, benefits, and alternatives of the procedure. I discussed the risks including but not limited to bleeding, infection, injury to surrounding organs such as the liver, bile duct, bowels. I did discuss the possibility of having to convert to an open procedure as well as the possibilitythat if any injuries occurred this may [facility] Boston Williamson MD Pager: [facility] [address] [place] [address], [address] [place] [address] Office: 11/07/24 1880 <Electronically signed by Boston Williamson MD> Cosigner Signature (if applicable): CC: ~ Signed [facility] Work Phone: [phone] Progress note [facility] Medical Records Department [address] [place], [place] [id number] Progress Note 11/07/24 8849 MR#: [id number] Acct: [id number] Name: MEJIAMICHAEL Sr. Rep #:[id number] : 1965 58 From: Tim Friend DO PCP: Dr. Beryl Harrison, DO Status:AD M IN Location: [facility] UN308-6 Progress Note Patient underwent ERCP with stone removal yesterday. He is not having any abdominal pain. He is scheduled for cholecystectomy on 11/09/2024. Physical Exam Const alert, oriented x3, no apparent distress and average body habitus General Appearance: cooperative, well kempt and well developed Orientation / Consciousness: awake, oriented to person, oriented to place and oriented to time HEENT normocephalic, head/scalp atraumatic and moist oral mucous membranes Eyes PERRL, EOMs intact bilaterally and conjunctivae normal Neck supple, no JVD, thyroid normal and no carotid bruits General: trachea midline Resp normal respiratory effort, no retractions, no use of accessory muscles and clearto auscultation bilaterally Auscultation: Negative for rales, rhonchi or wheezes Cardio regular rate, regular rhythm, S1 normal heart sound, S2 normal heart sound, no murmurs, no rub and no gallops GI normal to inspection, nondistended, normoactive bowel sounds, soft to palpation,non-tender and non-distended Extremity no clubbing, cyanosis or edema Skin Skin Narrative: Patient is jaundiced Neuro oriented x3, CN's II-XII intact bilaterally, moves all extremities, no focal motor deficits and no sensory deficits noted Sensorium / Orientation: awake and alert Speech: speech normal Psych affect normal Assessment & Plan Assessment/Plan (1) Choledocholithiasis: (2) Jaundice: PLAN: Patient is status post ERCP with stone removal and stent placement. Recommend repeat LFTs. Continue current diet. The patient for cholecystectomy on 11/07/2024. Visit Charges Inpatient E&M: 97001 [facility] Hosp L2 11/07/24 7789 [place] Friend DO Cosigner Signature (if applicable): CC: ~ Signed [facility]08-19-2025 Progress note [facility] Medical Records Department [address] [place] [address] Progress Note - Surgery 11/07/24 1407 MR#: [id number] Acct: [id number] Name: MICHAEL MEJIA Lesley Serrano. Rep #:[id number] : 1965 58 From: Boston mckay MD PCP: Dr. Beryl Harrison, DO Status:AD M IN Location: [facility] CR462-8 Subjective Subjective Patient is doing well and tolerating a diet Objective Data Objective Data Vital Signs: Vital Signs Temp Pulse Resp BP Pulse Ox O2 Del Method O2 Flow Rate 98.0 F 91 16 122/76 H 94 Room Air 2 11/07/24 08:47 11/07/24 08:47 11/07/24 08:47 11/07/24 08:47 11/07/24 08:47 11/07/24 08:47 11/06/24 15:17 Oxygen Flow Rate (L/min) 2 Oxygen Delivery Method Room Air Weight: 214 lb 15.211 oz Body Mass Index (BMI) 29.9 Intake & Output: Intake and Output for Last 24 Hours 11/05/24 11/06/24 11/07/24 23:59 23:59 23:59 Intake Total 200 / 200 2410 / 2410 1008.5 / 1008.5 Output Total 1353 / 1353 700 / 700 Balance 200 / 200 1057 / 1057 308.5 / 308.5 Lab / Micro Data 11/06/24 05:17 11/06/24 05:17 Physical Exam Const oriented x3 and no apparent distress Resp normal respiratory effort GI soft to palpation and non-tender Assessment & Plan Assessment/Plan (1) Choledocholithiasis: PLAN: Patient had ERCP with stone removal and stent placement. He is doing well. I have him on for morning at 730 for laparoscopic cholecystectomy. I discussed the procedure in detail with the patient. I discussed the risks, benefits, and alternatives of the procedure. I discussed the risks including but not limited to bleeding, infection, injury to surrounding organs such as the liver, bile duct, bowels. I did discuss the possibility of having to convert to an open procedure as well as the possibilitythat if any injuries occurred this may necessitate further surgery at a tertiarycare center. Boston Williamson MD Pager: [facility] [address] [place] [address], [address] [place] [address] Office: 11/07/24 9138 Cosigner Signature (if applicable): CC: ~ Signed [facility]08-19-2025 Progress note Author Micky Meadows [facility] Note Date/Time November 07, 2024 11 :50am [facility] Medical Records Department [address] [place] [address] Progress Note - Hospitalist 11/06/241853 MR#: [id number] Acct: [id number] Name: MICHAEL MEJIA Sr. Rep #:[id number] : 1965 58 From: Micky Meadows DO PCP: Dr. Beryl Harrison, DO Status:AD M IN [facility] Reason for Visit Chief Complaint: Abd pain and jaundince Subjective Subjective Patient was seen and examined today, he underwent an ERCP with removal of stonesand stent placement. I got a call from general surgery who stated that the patient would be going for cholecystectomy on . Objective Data Objective Data Vital Signs: Vital Signs Temp Pulse Resp BP Pulse Ox O2 Del Method O2 Flow Rate 98.4 F 79 16 139/82 H 98 Room Air 2 11/06/24 17:36 11/06/24 17:36 11/06/24 17:36 11/06/24 17:36 11/06/24 17:36 11/06/24 17:36 11/06/24 15:17 Oxygen Flow Rate (L/min) 2 Oxygen Delivery Method Room Air Weight: 97.5 kg Body Mass Index (BMI) 29.9 Intake & Output: Intake and Output for Last 24 Hours 11/04/24 11/05/24 11/06/24 23:59 23:59 23:59 Intake Total 200 / 200 2360 / 2360 Output Total 1353 / 1353 Balance 200 / 200 1007 / 1007 Lab / Micro Data 11/06/24 05:17 11/06/24 05:17 Labs: Laboratory Results - last 24 hr 11/06/24 05:17: WBC 11.6 H, RBC 4.51 L, Hgb 12.9 L, Hct 38.7 L, MCV 85.8, MCH 28.6, MCHC 33.3, RDW Std Deviation 41.1, RDW Coeff of Selene 13.2, Plt Count 363, MPV 8.9, Immature Gran % (Auto) 0.500, Neut % (Auto) 63.4, Lymph % (Auto) 13.1 L, Ross % (Auto) 9.6, Eos % (Auto) 12.4 H, Baso % (Auto) 1.0, Absolute Neuts (auto) 7.3, Absolute Lymphs (auto) 1.52, Nucleated RBC % 0, Sodium 133, Potassium 3.7, Chloride 98, Carbon Dioxide 21.0, Anion Gap 14, BUN 9, Creatinine1.18, Estim Creat Clear Calc 80.26, Est GFR (MDRD) Non-Af 71, BUN/Creatinine Ratio 7.9 L, Glucose 109 H, Calcium 8.7, Total Bilirubin 14.00 H, AST 183 H, [id number] H, Alkaline Phosphatase 514 H, Total Protein 6.3, Albumin 3.3 L, Globulin 2.9, Albumin/Globulin Ratio 1.1 Radiography Diagnostic Testing: Radiology Impression Abdomen/Pelvis CT 11/06/24 06:40 IMPRESSION: Dilated intrahepatic biliary ducts as well as the common bile duct down to the region of the ampulla of Vater. Dilatation of the pancreatic duct at the level of the head of the pancreas. An obstructive mass/lesion should be ruled out in the region of the ampulla Vater. ERCP recommended. Headache cyst dilatation of the gallbladder. Reading Location: [id number] C-Arm Fluoroscopy 11/06/24 08:30 IMPRESSION: Intraoperative fluoroscopy was performed for ERCP. Additionally, 13 fluoroscopic images were obtained. Reading Location: [facility]- Endo Retro Cholangiopancreatogram 11/06/24 08:30 IMPRESSION: Intraoperative fluoroscopy was performed for ERCP. Additionally, 13 fluoroscopic images were obtained. Reading Location: [place] [address] Physical Exam Const alert, oriented x3, no apparent distress and average body habitus General Appearance: cooperative, well kempt and well developed Orientation / Consciousness: awake, oriented to person, oriented to place and oriented to time HEENT normocephalic, head/scalp atraumatic and moist oral mucous membranes Eyes PERRL, EOMs intact bilaterally and conjunctivae normal Neck supple, no JVD, thyroid normal and no carotid bruits General: trachea midline Resp normal respiratory effort, no retractions, no use of accessory muscles and clearto auscultation bilaterally Auscultation: Negative for rales, rhonchi or wheezes Cardio regular rate, regular rhythm, S1 normal heart sound, S2 normal heart sound, no murmurs, no rub and no gallops GI normal to inspection, nondistended, normoactive bowel sounds, soft to palpation,non-tender and non-distended Extremity no clubbing, cyanosis or edema Skin Skin Narrative: Patient is jaundiced Neuro oriented x3, CN's II-XII intact bilaterally, moves all extremities, no focal motor deficits and no sensory deficits noted Sensorium / Orientation: awake and alert Speech: speech normal Psych affect normal Assessment & Plan Assessment/Plan (1) Choledocholithiasis: PLAN: Plan 1. Choledocholithiasis with jaundice-patient underwent an ERCP with removal of stones and stent placement, he will undergo a cholecystectomy later on in the week #2 essential hypertension-patient will remain on losartan #3 chronic anxiety-patient is on Zoloft Total clinical time spent by myself addressing the patient's medical issues, reviewing all of his data, and collaborating with patient's care team: 35 minutes Charges/Coding Visit Charges Inpatient E&M: 78908 Subs Hosp L2 11/07/24 1150 <Electronically signed by Micky Meadows DO> Cosigner Signature (if applicable): CC: ~ Signed [facility] Work Phone: 1([phone] 664-295208-19-2025 Progress note [facility] Medical Records Department [address] [place] [address] Progress Note - Hospitalist 11/06/24 1854 MR#: [id number] Acct: [id number] Name: MATEUSZMICHAEL Lesley Sr. Rep #:[id number] : 1965 58 From: Micky Meadows DO PCP: Dr. Beryl Harrison, DO Status:AD M IN [id number] Reason for Visit Chief Complaint: Abd pain and jaundince Subjective Subjective Patient was seen and examined today, he underwent an ERCP with removal of stonesand stent placement. I got a call from general surgery who stated that the patient would be going for cholecystectomy on . Objective Data Objective Data Vital Signs: Vital Signs Temp Pulse Resp BP Pulse Ox O2 Del Method O2 Flow Rate 98.4 F 79 16 139/82 H 98 Room Air 2 11/06/24 17:36 11/06/24 17:36 11/06/24 17:36 11/06/24 17:36 11/06/24 17:36 11/06/24 17:36 11/06/24 15:17 Oxygen Flow Rate (L/min) 2 Oxygen Delivery Method Room Air Weight: 97.5 kg Body Mass Index (BMI) 29.9 Intake & Output: Intake and Output for Last 24 Hours 11/04/24 11/05/24 11/06/24 23:59 23:59 23:59 Intake Total 200 / 200 2360 / 2360 Output Total 1353 / 1353 Balance 200 / 200 1007 / 1007 Lab / Micro Data 11/06/24 05:17 11/06/24 05:17 Labs: Laboratory Results - last 24 hr 11/06/24 05:17: WBC 11.6 H, RBC 4.51 L, Hgb 12.9 L, Hct 38.7 L, MCV 85.8, MCH 28.6, MCHC 33.3, RDW Std Deviation 41.1, RDW Coeff of Selene 13.2, Plt Count 363, MPV 8.9, Immature Gran % (Auto) 0.500, Neut % (Auto) 63.4, Lymph % (Auto) 13.1 L, Ross % (Auto) 9.6, Eos % (Auto) 12.4 H, Baso % (Auto) 1.0, Absolute Neuts (auto) 7.3, Absolute Lymphs (auto) 1.52, Nucleated RBC % 0, Sodium 133, Potassium 3.7,Chloride 98, Carbon Dioxide 21.0, Anion Gap 14, BUN 9, Creatinine1.18, Estim Creat Clear Calc 80.26, Est GFR (MDRD) Non-Af 71, BUN/Creatinine Ratio 7.9 L, Glucose 109 H, Calcium 8.7, Total Bilirubin 14.00 H, AST 183 H, [id number] H, Alkaline Phosphatase 514 H, Total Protein 6.3, Albumin 3.3 L, Globulin2.9, Albumin/Globulin Ratio 1.1 Radiography Diagnostic Testing: Radiology Impression Abdomen/Pelvis CT 11/06/24 06:40 IMPRESSION: Dilated intrahepatic biliary ducts as well as the common bile duct down to the region of the ampulla of Vater. Dilatation of the pancreatic duct at the level of the head of the pancreas. An obstructive mass/lesion should be ruled out in the region of the ampulla Vater. ERCP recommended. Headache cyst dilatation of the gallbladder. Reading Location: [id number] C-Arm Fluoroscopy 11/06/24 08:30 IMPRESSION: Intraoperative fluoroscopy was performed for ERCP. Additionally, 13 fluoroscopic images were obtained. Reading Location: [place] [address] Endo Retro Cholangiopancreatogram 11/06/24 08:30 IMPRESSION: Intraoperative fluoroscopy was performed for ERCP. Additionally, 13 fluoroscopic images were obtained. Reading Location: [place] [address] Physical Exam Const alert, oriented x3, no apparent distress and average body habitus General Appearance: cooperative, well kempt and well developed Orientation / Consciousness: awake, oriented to person, oriented to place and oriented to time HEENT normocephalic, head/scalp atraumatic and moist oral mucous membranes Eyes PERRL, EOMs intact bilaterally and conjunctivae normal Neck supple, no JVD, thyroid normal and no carotid bruits General: trachea midline Resp normal respiratory effort, no retractions, no use of accessory muscles and clearto auscultation bilaterally Auscultation: Negative for rales, rhonchi or wheezes Cardio regular rate, regular rhythm, S1 normal heart sound, S2 normal heart sound, no murmurs, no rub and no gallops GI normal to inspection, nondistended, normoactive bowel sounds, soft to palpation,non-tender and non-distended Extremity no clubbing, cyanosis or edema Skin Skin Narrative: Patient is jaundiced Neuro oriented x3, CN's II-XII intact bilaterally, moves all extremities, no focal motor deficits and no sensory deficits noted Sensorium / Orientation: awake and alert Speech: speech normal Psych affect normal Assessment & Plan Assessment/Plan (1) Choledocholithiasis: PLAN: Plan 1. Choledocholithiasis with jaundice-patient underwent an ERCP with removal of stones and stent placement, he will undergo a cholecystectomy later on in the week #2 essential hypertension-patient will remain on losartan #3 chronic anxiety-patient is on Zoloft Total clinical time spent by myself addressing the patient's medical issues, reviewing all of his data, and collaborating with patient's care team: 35 minutes Charges/Coding Visit Charges Inpatient E&M: 56271 Subs Hosp L2 11/07/24 1150 Cosigner Signature (if applicable): CC: ~ Signed [facility]08-18-2025 Consult note Author Vinita Goss [facility] Note Date/Time November 06, 2024 1: 46pm [facility] Medical Records Department [address] [place] [address] Anesthesia Postop Eval II 11/06/24 1346 MR#: [id number] Acct: [id number] Name: MICHAEL MEJIA Sr. Rep #:[id number] : 1965 58 From: Vinita TUCKER PCP: Dr. Beryl Harrison, DO Status:AD M IN Y Race: C Location: [place] [address] Anesthesia Postop Eval I Sum Postop Eval Completion status Anesthesia document: Postop Eval 1 completed: Yes Anesthesia Postop Eval I Summary Anesthesia Postop Eval I Summary: Anesthesia Postop Eval I: Assessment Summary Airway patent Yes 11/06/24 13:01 [email or web address] Spontaneous unlabored Yes 11/06/24 13:01 [email or web address] respirations Mental status Awake 11/06/24 13:01 [email or web address] nausea No 11/06/24 13:01 [email or web address] Vomiting No 11/06/24 13:01 [email or web address] Anesthesia Postop Eval I: Fluid Summary Crystalloid volume administer 600 11/06/24 13:01 [email or web address] (ml) Colloids volume administered ( ml) Blood Product volume administered (ml) Total IV fluid infused 600 11/06/24 13:01 [email or web address] Anesthesia Postop Eval I: Summary Notes Anesthesia Complication No 11/06/24 13:01 [email or web address] Anesthesia Complication Comment: Post-operative progress note Anesthesia: Postop Eval II Evaluation Mental status: Awake and Calm Pain Level: 1 nausea: No Vomiting: No Complications Anesthesia Complication: No 11/06/24 1346 <Electronically signed by Vinita Goss BUTTONER> Date _ Vinita Wolfgang BUTTONER Cosigner Signature: Date CC: ~ Signed [facility] Work Phone: 1(623) 572-769208-18-2025 Consult note Author Hank Reese [facility] Note Date/Time November 06, 2024 1: 01pm [facility] Medical Records Department [address] [place] [address] Anesthesia Postop Eval I 11/06/24 1300 MR#: [id number] Acct: [id number] Name: MICHAEL MEJIA Sr. Rep #:[id number] : 1965 58 From: Hank Reese PCP: Dr. Beryl Harrison, DO Status:AD M IN Y Race: C Location: [place] [address] Anesthesia: Postop Eval I Current Vital Signs Temperature: 97.9 F Pulse Rate: 92 Blood Pressure: 112/87 Respiratory Rate: 16 Pulse Ox: 93 Oxygen Delivery Method: Room Air Assessment Airway patent: Yes Spontaneous unlabored respirations: Yes Mental status: Awake nausea: No Vomiting: No Anesthesia Complication: No Fluid Hydration Crystalloid volume administer (ml): 600 Total IV fluid infused: 600 Progress Note Anesthesia document: Postop Eval 1 completed: Yes 11/06/24 1301 <Electronically signed by Hank Reese > Date _ Hank Reese Cosigndevika Signature: Date CC: ~ Signed [facility] Work Phone: [phone]) 632-492908-18-2025 Consult note [facility] Medical Records Department [address] [place] [address] Anesthesia Postop Eval II 11/06/24 1346 MR#: [id number] Acct: [id number] Name: MICHAEL MEJIA Sr. Rep #:[id number] : 1965 58 From: Vinita TUCKER PCP: Dr. Beryl Harrison, DO Status:AD M IN Y Race: C Location: [place] [id number] Anesthesia Postop Eval I Sum Postop Eval Completion status Anesthesia document: Postop Eval 1 completed: Yes Anesthesia Postop Eval I Summary Anesthesia Postop Eval I Summary: Anesthesia Postop Eval I: Assessment Summary Airway patent Yes 11/06/24 13:01 [email or web address] Spontaneous unlabored Yes 11/06/24 13:01 [email or web address] respirations Mental status Awake 11/06/24 13:01 [email or web address] nausea No 11/06/24 13:01 [email or web address] Vomiting No 11/06/24 13:01 [email or web address] Anesthesia Postop Eval I: Fluid Summary Crystalloid volume administer 600 11/06/24 13:01 [email or web address] (ml) Colloids volume administered ( ml) Blood Product volume administered (ml) Total IV fluid infused 600 11/06/24 13:01 [email or web address] Anesthesia Postop Eval I: Summary Notes Anesthesia Complication No 11/06/24 13:01 [email or web address] Anesthesia Complication Comment: Post-operative progress note Anesthesia: Postop Eval II Evaluation Mental status: Awake and Calm Pain Level: 1 nausea: No Vomiting: No Complications Anesthesia Complication: No 11/06/24 1346 BUTTONER> Date _ Vinita Goss BUTTONER Cosigner Signature: Date CC: ~ Signed [facility]08-18-2025 Consult note Author Tim Murray [facility] Note Date/Time November 06, 2024 11 :44am [facility] Medical Records Department [address] [place] [address] Consultation - GI 11/06/24 1140 MR#: [id number] Acct: [id number] Name: MICHAEL MEJIA Sr. Rep #:[id number] : 1965 58 From: Tim Murray DO PCP: Dr. Beryl Harrison, DO Status:AD M IN Location: [facility] [id number] HPI Consult Data Date of Consult: 11/06/24 HPI Narrative Reason for Consultation: Obstructive jaundice HPI Narrative: MICHAEL MEJIA, is a 58 M who presents as a transfer from an outside hospital for obstructive jaundice. He admits to developing abdominal pain approximately 2 weeks ago. 2 weeks ago he had a CT abdomen and pelvis with contrast which showed thickening of the gallbladder but no other acute abnormalities. His pain got progressively worse. 4 days ago he had an ultrasound that showed common bile duct of 11 mm, in the ED today his bilirubin was found to be 15 and imaging showed gallbladder sludge and stones. Patient suspected to have choledocholithiasis, given the above he was given antibiotics and [facility] contacted for transfer. Upon arrival his bilirubin was 14, AST of 134, AST 150 and alkaline phosphatase of 250. [facility] Medical History Depression Anxiety HTN (hypertension) Appendicitis Home Medications ?Medication ?Instructions ?Recorded ?Last Taken ?Type cetirizine 10 mg tablet (Allergy 10 mg PO DAILY allerg ies 11/05/24 Unknown History Relief (cetirizine)) losartan 50 mg tablet 50 mg PO DAILY blood pressur e 11/05/24 Unknown History pantoprazole 40 mg tablet,delayed 40 mg PO BID gerd Unknown History release sertraline 100 mg tablet 100 mg PO DAILY anxiety 10/20 10/13 Unknown History Allergy/AdvReac Type Severity Reaction Status Date / Time azithromycin (From Zithromax) Allergy Severe Rash Verified 11/06/24 11:19 Surgical History H/O sinus surgery H/O hernia repair Social History Smoking Status: Former smoker ROS Constitutional Constitutional: Denies fatigue, fever(s), poor appetite, weight gain or weight loss Gastrointestinal Gastrointestinal: Denies belching, bloating, change in bowel habits, change in stool character, chewing difficulty, coffee ground emesis, constipation, cramping, diarrhea, dyspepsia, dysphagia, early satiety, excessive flatus, fecalincontinence, heartburn, hematemesis, hematochezia, hemorrhoids, loose stools, melena, nausea, odynophagia, rectal bleeding, tenesmus, vomiting or weight changes Physical Exam Narrative General: Alert, oriented, no apparent distress HEENT: Atraumatic, normocephalic Eyes: Some scleral icterus appreciated, normal conjunctiva, extraocular movements grossly intact Neck: Supple Respiratory: Clear to auscultation bilaterally, normal respiratory effort Cardiovascular: Regular rate and rhythm GI: Soft, somewhat protuberant, did not have any significant tenderness on my evaluation with no rebound, guarding, or rigidity Extremities: No edema Musculoskeletal: Moving all extremities Neuro: No overt focal neurological deficits Skin: No rashes appreciated the patient does appear visually jaundice Psych: Cooperative Lab / Micro Data 11/06/24 05:17 11/06/24 05:17 Labs: Laboratory Results - last 24 hr 11/06/24 05:17: WBC 11.6 H, RBC 4.51 L, Hgb 12.9 L, Hct 38.7 L, MCV 85.8, MCH 28.6, MCHC 33.3, RDW Std Deviation 41.1, RDW Coeff of Selene 13.2, Plt Count 363, MPV 8.9, Immature Gran % (Auto) 0.500, Neut % (Auto) 63.4, Lymph % (Auto) 13.1 L, Ross % (Auto) 9.6, Eos % (Auto) 12.4 H, Baso % (Auto) 1.0, Absolute Neuts (auto) 7.3, Absolute Lymphs (auto) 1.52, Nucleated RBC % 0, Sodium 133, Potassium 3.7, Chloride 98, Carbon Dioxide 21.0, Anion Gap 14, BUN 9, Creatinine1.18, Estim Creat Clear Calc 80.26, Est GFR (MDRD) Non-Af 71, BUN/Creatinine Ratio 7.9 L, Glucose 109 H, Calcium 8.7, Total Bilirubin 14.00 H, AST 183 H, [id number] H, Alkaline Phosphatase 514 H, Total Protein 6.3, Albumin 3.3 L, Globulin 2.9, Albumin/Globulin Ratio 1.1 Imaging Radiology Impression Abdomen/Pelvis CT 11/06/24 06:40 IMPRESSION: Dilated intrahepatic biliary ducts as well as the common bile duct down to the region of the ampulla of Vater. Dilatation of the pancreatic duct at the level of the head of the pancreas. An obstructive mass/lesion should be ruled out in the region of the ampulla Vater. ERCP recommended. Headache cyst dilatation of the gallbladder. Reading Location: [id number] Assessment & Plan Assessment/Plan (1) Choledocholithiasis: (2) Jaundice: PLAN: 58-year-old gentleman with obstructive jaundice and right upper quadrant pain. Differential diagnosis does include biliary stricture, malignancy such ascholangiocarcinoma, choledocholithiasis, choledochal cyst with choledocholithiasis. He will undergo ERCP to evaluate his hepatobiliary tree. He will also get CT scan abdomen pelvis. He was explained alternatives, risk and benefits include not withstanding bleeding, infection, septal, perforation, need for return to . He will have an ASA of 3. Charges/Coding Visit Charges Inpatient E&M: 01609 Init Hosp L3 11/06/24 1144 <Electronically signed by Tim Murray DO> Cosigner Signature (if applicable): CC: Dr. Beryl Harrison DO~ Signed [facility] Work Phone: [phone] Consult note Author Rocky Garcia [facility] Note Date/Time November 06, 2024 11 :24am [facility] Medical Records Department [address] [place] [address] Pre-Anesthesia Evaluation 11/06/24 1113 MR#: [id number] Acct: [id number] Name: MICHAEL MEJIA . Rep #:[id number] : 1965 58 From: Rocky Garcia MD PCP: Dr. Beryl Harrison, DO Status:AD M IN Y Race: C Location: [place] [id number] -[id number] ASA Classification* ASA Classification ASA Classification: 3 Assessment & Plan Anesthesia* Anesthesia Assessment Anesthesia Assessment: Discussed sedation and/or anesthesia options, risks, benefits, and alternatives with patient/parents/legal guardian/POA. Questions invited. The patient/parents/legal guardian/POA seems to understand and agrees to proceedwith anesthesia plan. Reviewed the physical assessment, medical history, allergy history and patient home medications list prior to surgery/procedure/anesthetic and documented any changes. Performed airway and anesthesia risk assessments. Anesthesia Type Anesthesia Type: General History Source History Obtained from:: Patient and Chart Anesthesia Focused Assessment* Temperature: 98.7 F Pulse Rate: 68 Blood Pressure: 128/89 Respiratory Rate: 18 Pulse Ox: 96 Oxygen Delivery Method: Room Air Airway Assessment Mouth opens: >3 cm Mallampati Score: III Teeth Condition: Chipped/Broken (Patient has poor dentition.) and Missing (Multiple missing teeth. Rest of the teeth are currently tight.) Neck Range of motion (ROM): Limited ROM (Somewhat Decreased) Labs Anesthesia Preop lab: 2 CBC WBC 11.6 K/mm3 (4.4-11.0) H 11/06/24 05:17 5 RBC 4.51 M/mm3 (4.6-6.2) L 11/06/24 05:17 11/06/24 Hgb 12.9 g/dL (13.0-16.5) L 11/06/24 05: 5 Hct 38.7 % (40-54) L 11/06/24 05:17 11/06/24 Plt Count 363 K/mm3 (150-450) 11/06/24 05:17 11/06/24 CHEMISTRY Potassium 3.7 mmol/L (3.3-5.1) 11/06/24 05:17 11/06/24 Sodium 133 mmol/L (133-145) 11/06/24 05:17 11/06/24 BUN 9 mg/dL (4-19) 11/06/24 05:17 11/06/24 Creatinine 1.18 mg/dL (0.70-1.20) 11/06/24 05:17 11/06/24 Glucose 109 mg/dL (70-99) H 11/06/24 05:17 11/06/24 COAG Pre-Assessment Diagnosis/Proposed Procedure Planned Operative Procedure(s): Endoscopic retrograde cholangiopancreatography Anesthesia History Anesthesia History - deburr technician: Anesthesia History - deburr technician Hx Hospitalization Any Problems With Anesthesia No 11/06/24 06:31 Cholinesterase deficiency No 11/06/24 06:31 You/Your Family Experience No 11/06/24 06:31 fever (hyperthermia) with Relationship Recent Exposure to Contagious No 11/06/24 06:31 Disease Does patient have nerve No 11/06/24 06:31 stimulator Patient instructed to have No 11/06/24 06:31 device shut off --Does patient have Pacemaker or ICD? When Was Last Pacemaker Check QUESTION #4 FULL TEXT: You/Your Family Experience fever (hyperthermia) with Anesthesia Last Oral Intake Last Oral intake: Last Oral Intake NPO since Meds taken in AM with sips of water? Meds patient instructed to take am of surgery Any additional information?: Yes NPO since: 00:00 PONV PONV - deburr technician: PONV - deburr technician Female HX of Motion Sickness HX of N/V After Surgery Non-Smoker Duration of Surgery greater than 60 minutes Number of Risk Factors PONV Score Height & Weight Height & Weight: Anesthesia: Height & Weight Height 5 ft 11 in 11/05/24 16:34 Weight: 97.5 kg 11/05/24 16:34 Body Mass Index (BMI) 29.9 11/05/24 16:34 Respiratory Assessment Respiratory Assessment - deburr technician: Respiratory Tract Infection Hx - deburr technician Hx Respiratory Tract Infection No 11/06/24 06:31 STOP Sleep Apnea STOP Sleep Apnea - deburr technician: STOP Sleep Apnea - deburr technician Hx Hypertension Yes 11/05/24 16:34 Hx Sleep Apnea No 11/05/24 16:34 CPAP BIPAP Do you snore loudly (louder Yes 11/05/24 16:34 than talking or can be heard Do you often feel tired/ Yes 11/05/24 16:34 fatigued/ sleepy during daytime? Has anyone observed you stop Yes 11/05/24 16:34 breathing during sleep? STOP Results Positive 11/05/24 16:34 QUESTION #5 FULL TEXT : Do you snore loudly (louder than talking or can be heard through closed doors)? 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 Specify any problems Hx of Preganancy in last 3 N/A 11/05/24 16:34 Months Nurse Filling Out Transfusion CDANTONE 11/05/24 16:34 & Questions: Date: 11/05/24 11/05/24 16:34 Time: 16:39 11/05/24 16:34 Patient unable to answer at this time (ie. confused, unrespo /Reproduction History /Reproductive History - deburr technician: /Reproductive Hx- deburr technician Hx Now No 11/06/24 06:31 Gestational Age (in weeks): EDC: Hx Hx Para Hx Section SAB No 11/06/24 06:31 Active Medications Active Medications: Current Medications Generic Name Dose Route Start Last Admin Trade Name Freq PRN Reason Stop Dose Admin Albuterol Sulfate 2.5 mg 11/05/24 16:56 Albuterol 2.5 Mg/3 Ml Vial.Neb. INHALATION Q2H PRN PRN SOB &/OR WHEEZING Sodium Chloride 250 mls @ 15 mls/hr 11/05/24 16:36 IV .[id number] PRN Saline Flush Sodium Chloride 250 mls @ 15 mls/hr 11/05/24 16:36 IV .[id number] PRN Additional IVPB Infusion Sodium Chloride 1,000 mls @ 100 mls/hr 11/05/24 17:00 11/06/24 04:24 IV 11/06/24 12:59 100 mls/hr .Q10H GILBERTO Administration Piperacillin Sod/Tazobactam 50 mls @ 12.5 mls/hr 11/05/24 22:00 11/06/24 09:00 Sod 3.375 gm/ Sodium Chloride IV Infused Q8 GILBERTO Infusion Lactated Ringer's 1,000 mls @ 15 mls/hr 11/06/24 11:00 11/06/24 10:56 IV 15 mls/hr .Q48H GILBERTO Administration Ketorolac Tromethamine 15 mg 11/05/24 16:56 Ketorolac 15 Mg/Ml Vial IV 11/10/24 16:58 Q6H PRN PRN Pain Score 1-10 Loratadine 10 mg 11/06/24 10:00 11/06/24 10:28 Loratadine 10 Mg Tablet PO Not Given DAILY [facility] Losartan Potassium 50 mg 11/06/24 10:00 11/06/24 10:28 Losartan Potassium 50 Mg Tablet PO Not Given DAILY [facility] Protocol Melatonin 10 mg 11/05/24 16:56 Melatonin 10 Mg Tablet PO QHS PRN PRN INSOMNIA Morphine Sulfate 2 - 4 mg 11/05/24 16:56 11/06/24 09:47 Morphine 2 Mg/Ml Syringe IV 2 mg Q3H PRN PRN Administration Pain Score 6-10 Morphine Sulfate 2 - 4 mg 11/05/24 17:15 Morphine 4 Mg/Ml Syringe IV Q3H PRN PRN Pain Score 6-10 Ondansetron HCl 4 mg 11/05/24 16:56 11/05/24 22:13 Ondansetron 4 Mg/2 Ml Vial IV 4 mg Q8H PRN PRN Administration NAUSEA/VOMITING Oxycodone HCl 5 mg 11/05/24 16:56 11/06/24 05:04 Oxycodone 5 Mg Tablet PO 5 mg Q4H PRN PRN Administration Pain Score 4-10 Pantoprazole Sodium 40 mg 11/05/24 22:00 11/06/24 10:28 Pantoprazole Sodium 40 Mg Tablet PO Not Given BID [facility] Senna/Docusate Sodium 2 tablet 11/05/24 16:56 Senna/Docusate Sodium 1 Tablet PO BID PRN PRN Constipation Sodium Chloride 10 - 40 ml 11/05/24 16:36 11/06/24 09:48 0.9% Saline Lock 10 Ml Syringe IV 10 ml UD PRN Administration SALINE FLUSH [facility] Medical History Depression Anxiety HTN (hypertension) Appendicitis Home Medications ?Medication ?Instructions ?Recorded ?Last Taken ?Type cetirizine 10 mg tablet (Allergy 10 mg PO DAILY allerg ies 11/05/24 Unknown History Relief (cetirizine)) losartan 50 mg tablet 50 mg PO DAILY blood pressur e 11/05/24 Unknown History pantoprazole 40 mg tablet,delayed 40 mg PO BID gerd Unknown History release sertraline 100 mg tablet 100 mg PO DAILY anxiety 10/20 10/13 Unknown History Allergy/AdvReac Type Severity Reaction Status Date / Time azithromycin (From Zithromax) Allergy Severe Rash Verified 11/06/24 11:19 Surgical History H/O sinus surgery H/O hernia repair Social History Smoking Status: Former smoker Review of Systems (Anesthesia) ROS Narrative System reviewed and no additional complaints, except as documented. 11/06/24 1124 <Electronically signed by Rocky lee MD> Date _ Rocky Garcia MD Cosigner Signature: Date CC: ~ Signed [facility] Work Phone: [phone] 677-768508-18-2025 Consult note [facility] Medical Records Department [address] [place] [address] Anesthesia Postop Eval I 11/06/24 1300 MR#: [id number] Acct: [id number] Name: MICHAEL MEJIA Lesley Sr. Rep #:[id number] : 1965 58 From: Hank Reese PCP: Dr. Beryl Harrison, DO Status:AD M IN Y Race: C Location: [place] [address] Anesthesia: Postop Eval I Current Vital Signs Temperature: 97.9 F Pulse Rate: 92 Blood Pressure: 112/87 Respiratory Rate: 16 Pulse Ox: 93 Oxygen Delivery Method: Room Air Assessment Airway patent: Yes Spontaneous unlabored respirations: Yes Mental status: Awake nausea: No Vomiting: No Anesthesia Complication: No Fluid Hydration Crystalloid volume administer (ml): 600 Total IV fluid infused: 600 Progress Note Anesthesia document: Postop Eval 1 completed: Yes 11/06/24 1301 > Date _ Hank Reese Cosigner Signature: Date CC: ~ Signed [facility]08-18-2025 Radiology Diagnostic study note [facility] Imaging Services [address] [place] [id number] ERCP Biliary/Pancreas MR#: [id number] Acct: [id number] Name: CORBIN MEJIAZACK Sutton Sr. Rep #: [id number] : 1965 M 58 From: Wale Chaidez MD PCP: Dr. Beryl Harrison, DO Status: AD M IN Study:ERCP Biliary/Pancreas Date of Exam: 11/06/24 Exam# [id number] Ordering Dr: Abigail Murray DO PROCEDURE: ERCP BILIARY/PANCREAS; O.R. FLUORO FOR C-ARM 11/06/2024 REASON FOR EXAM: ABD PAIN TECHNIQUE: ERCP BILIARY/PANCREAS; O.R. FLUORO FOR C-ARM. Fluoroscopy time: 90.7 seconds. Dose: 50.26 mGy. COMPARISON: CT examination 11/06/2024. RAD/ERCP Biliary/Pancreas IMPRESSION: Intraoperative fluoroscopy was performed for ERCP. Additionally, 13 fluoroscopic images were obtained. Reading Location: [place] [address] CC: Dr. Beryl Harrison DO; Tim Murray DO ~ Biological Chemist: Signed [facility]08-18-2025 Radiology Diagnostic study note [facility] Imaging Services [address] [place] [address] O.R. Fluoro for C-Arm MR#: [id number] Acct: [id number] Name: MICHAEL MEJIA Sr. Rep #: [id number] : 1965 M 58 From: Wale Chaidez MD PCP: Dr. Beryl Harrison DO Status: AD M IN Study:O.R. Fluoro for C-Arm Date of Exam: 11/06/24 Exam# [id number] Ordering Dr: Abigail Murray DO PROCEDURE: ERCP BILIARY/PANCREAS; O.R. FLUORO FOR C-ARM 11/06/2024 REASON FOR EXAM: ABD PAIN TECHNIQUE: ERCP BILIARY/PANCREAS; O.R. FLUORO FOR C-ARM. Fluoroscopy time: 90.7 seconds. Dose: 50.26 mGy. COMPARISON: CT examination 11/06/2024. RAD/O.R. Fluoro for C-Arm IMPRESSION: Intraoperative fluoroscopy was performed for ERCP. Additionally, 13 fluoroscopic images were obtained. Reading Location: [place] [address] CC: Dr. Beryl Harrison DO; Tim Murray DO ~ Biological Chemist: Signed [facility]08-18-2025 Procedure note [facility] Medical Records Department [address] [place] [address] ERCP Report MR#: [id number] Acct: [id number] Name: MICHAEL MEJIA Sr. Rep #:[id number] : 1965 58 From: Tim Murray DO PCP: Dr. Beryl Harrison DO Status:AD M IN Patient Name: Michael Mejia Procedure Date: 11/06/2024 11:08 AM Date of : 1965 Age: 58 Procedure: ERCP Indications: Common bile duct stone(s), Abdominal pain of suspected biliary origin, Suspected ascending cholangitis, Jaundice, Elevated liver enzymes Providers: Tim Murray DO Medicines: Monitored Anesthesia Care Patient Profile: This is a 58 year old male. Refer to note in patient chart for documentation of history and physical. This patient has no history of previous ERCP. This patient has no history of surgical alteration of the upper digestive tract anatomy. Complications: No immediate complications. Procedure: Pre-Anesthesia Assessment: - Prior to the procedure, a History and Physical was performed, and patient medications and allergies were reviewed. The patient is competent. The risks and benefits of the procedure and the sedation options and risks were discussed with the patient. All questions were answered and informed consent was obtained. Patient identification and proposed procedure were verified by the physician in the pre-procedure area. Mental Status Examination: alert and oriented. Airway Examination: normal oropharyngeal airway and neck mobility. Respiratory Examination: clear to auscultation. CV Examination: normal. Prophylactic Antibiotics: The patient does not require prophylactic antibiotics. Prior Anticoagulants: The patient has taken no anticoagulant or antiplatelet agents except for NSAID medication. ASA Grade Assessment: II - A patient with mild systemic disease. After reviewing the risks and benefits, the patient was deemed in satisfactory condition to undergo the procedure. The anesthesia plan was to use monitored anesthesia care (MAC). Immediately prior to administration of medications, the patient was re-assessed for adequacy to receive sedatives. The heart rate, respiratory rate, oxygen saturations, blood pressure, adequacy of pulmonary ventilation, and response to care were monitored throughout the procedure. The physical status of the patient was re-assessed after the procedure. After obtaining informed consent, the scope was passed under direct vision. Throughout the procedure, the patient's blood pressure, pulse, and oxygen saturations were monitored continuously. The Duodenoscope was introduced through the mouth, and advanced to the duodenum and used to inject contrast into the bile duct. The ERCP was accomplished without difficulty. The patient tolerated the procedure well. Scope In: 12:17:03 PM Scope Out: 12:29:41 PM Total Procedure Duration Time 0 hours 12 minutes 38 seconds Findings: The senior merchandiser film was normal. The esophagus was successfully intubated under direct vision. The scope was advanced to a normal major papilla in the descending duodenum without detailed examination of the pharynx, larynx and associated structures, and upper GI tract. The upper GI tract was grossly normal. A long 0.025 inch Jagwire was passed into the biliary tree. The short-nosed traction sphincterotome was passed over the guidewire and the bile duct was then deeply cannulated. Contrast was injected. I personally interpreted the bile duct images. There was brisk flow of contrast through the ducts. Image quality was adequate. Contrast extended to the main bile duct. Contrast extended to the cystic duct. Contrast extended to the gallbladder. Contrast extended to the bifurcation. Contrast extended to the entire biliary tree. Opacification of the entire opacified area, main bile duct, common bile duct, cystic duct, gallbladder, common hepatic duct, hepatic duct bifurcation, left and right hepatic ducts with secondary or tertiary branches of the intrahepatic ducts (Bismuth IV), left and right hepatic ducts and all intrahepatic branches and entire biliary tree was successful. The maximum diameter of the ducts was 15 mm. The lower third of the main bile duct and common hepatic duct contained three stones, the largest of which was 6 mm in diameter. The main bile duct, common bile duct, common hepatic duct, hepatic duct bifurcation and left and right hepatic ducts with secondary or tertiary branches of the intrahepatic ducts (Bismuth IV) were diffusely dilated, with a stone causing an obstruction. The largest diameter was 13 mm. A 5 mm biliary sphincterotomy was made with a traction (standard) sphincterotome using ERBE electrocautery. There was no post-sphincterotomy bleeding. The biliary tree was swept with a 12 mm balloon starting at the upper third of the main bile duct, middle third of the main bile duct, lower third of the main duct, bifurcation, left main hepatic duct, right intrahepatic duct(s) and right main hepatic duct. Sludge was swept from the duct. All stones were removed. Pus was swept from the duct. Mucus was swept from the duct. Debris was swept from the duct. One 10 Fr by 5 cm temporary stent with a single external flap and two internal flaps was placed 5 cm into the common bile duct. Bile flowed through the stent. The stent was in good position. Impression: - The hepatic duct system (Bismuth IV), entire main bile duct, common bile duct and common hepatic duct were dilated, with a stone causing an obstruction. - Choledocholithiasis was found. Complete removal was accomplished by biliary sphincterotomy and balloon extraction. - A biliary sphincterotomy was performed. - The biliary tree was swept and pus, mucus and debris were found. - One temporary stent was placed into the common bile duct. Procedure Code(s): --- Professional --- 52796, Endoscopic retrograde cholangiopancreatography (ERCP); with placement of endoscopic stent into biliary or pancreatic duct, including pre- and post-dilation and guide wire passage, when performed, including sphincterotomy, when performed, each stent 72962, Endoscopic retrograde cholangiopancreatography (ERCP); with removal of calculi/debris from biliary/pancreatic duct(s) 15343, 26, Endoscopic catheterization of the biliary ductal system, radiological supervision and interpretation CPT copyright 2021 [employer]. All rights reserved. The codes documented in this report are preliminary and upon ski binding fitter and repairer review may be revised to meet current compliance requirements. Tim Murray DO 11/06/2024 12:39:40 PM This report has been signed electronically. Number of Addenda: 0 Note Initiated On: 11/06/2024 11:08 AM 11/06/24 1239 Date _ Tim Murray DO Cosigner Signature: Date (if indicated) CC: Dr. Beryl Harrison DO; Tim Murray DO ~ Date Dictated: 11/06/24 1108 Date Transcribed: Biological Chemist: PHILLIP Signed [facility]08-18-2025 Procedure note [facility] Medical Records Department [address] [place] [address] Provation Physician Letter MR#: [id number] Acct: [id number] Name: MICHAEL MEJIA Sr. Rep #:[id number] : 1965 58 From: Tim Murray DO PCP: Dr. Beryl Harrisno DO Status:AD M IN 11/06/2024 Beryl Harrison Do Re : ERCP procedure for Michael Mejia Dear Dr. Harrison This procedure was performed on Wednesday, November 06, 2024. My impressions and recommendations are as follows: Impressions : - The hepatic duct system (Bismuth IV), entire main bile duct, common bile duct and common hepatic duct were dilated, with a stone causing an obstruction. - Choledocholithiasis was found. Complete removal was accomplished by biliary sphincterotomy and balloon extraction. - A biliary sphincterotomy was performed. - The biliary tree was swept and pus, mucus and debris were found. - One temporary stent was placed into the common bile duct. Recommendations : My findings are described in the full procedure note, which is enclosed. If I can be of further assistance, please feel free to contact me at . Sincerely, Tim Murray DO 11/06/2024 12:39:40 PM This report has been signed electronically. 11/06/24 1240 Date _ Tim Murray DO Cosigner Signature: Date (if indicated) CC: Dr. Boston Williamson MD; Dr. Beryl Harrison DO; Dr. Micky Meadows DO; Dr. Kate Stark MD ~ Date Dictated: 11/06/24 1108 Date Transcribed: Biological Chemist: RF Signed [facility]08-18-2025 Consult note [facility] Medical Records Department [address] [place] [address] Consultation - GI 11/06/24 1140 MR#: [id number] Acct: [id number] Name: MICHAEL MEJIA Sr. Rep #:[id number] : 1965 58 From: Tim Murray DO PCP: Dr. Beryl Harrison, DO Status:AD M IN Location: [facility] [id number] HPI Consult Data Date of Consult: 11/06/24 HPI Narrative Reason for Consultation: Obstructive jaundice HPI Narrative: MICHAEL MEJIA, is a 58 M who presents as a transfer from an outside hospital for obstructive jaundice. He admits to developing abdominal pain approximately 2 weeks ago. 2 weeks ago he had a CT abdomen and pelvis with contrast which showed thickening of the gallbladderbut no other acute abnormalities. His pain got progressively worse. 4 days ago he had an ultrasound that showed common bile duct of 11 mm, in the ED today his bilirubin was found to be 15 and imaging showed gallbladder sludge and stones. Patient suspected to have choledocholithiasis, given the above he was given antibiotics and [facility] contacted for transfer. Upon arrival his bilirubin was 14, AST of 134, AST 150 and alkaline phosphatase of 250. [facility] Medical History Depression Anxiety HTN (hypertension) Appendicitis Home Medications ?Medication ?Instructions ?Recorded ?Last Taken ?Type cetirizine 10 mg tablet (Allergy 10 mg PO DAILY allerg ies 11/05/24 Unknown History Relief (cetirizine)) losartan 50 mg tablet 50 mg PO DAILY blood pressur e 11/05/24 Unknown History pantoprazole 40 mg tablet,delayed 40 mg PO BID gerd Unknown History release sertraline 100 mg tablet 100 mg PO DAILY anxiety 10/20 10/13 Unknown History Allergy/AdvReac Type Severity Reaction Status Date / Time azithromycin (From Zithromax) Allergy Severe Rash Verified 11/06/24 11:19 Surgical History H/O sinus surgery H/O hernia repair Social History Smoking Status: Former smoker ROS Constitutional Constitutional: Denies fatigue, fever(s), poor appetite, weight gain or weight loss Gastrointestinal Gastrointestinal: Denies belching, bloating, change in bowel habits, change in stool character, chewing difficulty, coffee ground emesis, constipation, cramping, diarrhea, dyspepsia, dysphagia, earlysatiety, excessive flatus, fecalincontinence, heartburn, hematemesis, hematochezia, hemorrhoids, loose stools, melena, nausea, odynophagia, rectal bleeding, tenesmus, vomiting or weight changes Physical Exam Narrative General: Alert, oriented, no apparent distress HEENT: Atraumatic, normocephalic Eyes: Some scleral icterus appreciated, normal conjunctiva, extraocular movements grossly intact Neck: Supple Respiratory: Clear to auscultation bilaterally, normal respiratory effort Cardiovascular: Regular rate and rhythm GI: Soft, somewhat protuberant, did not have any significant tenderness on my evaluation with no rebound, guarding, or rigidity Extremities: No edema Musculoskeletal: Moving all extremities Neuro: No overt focal neurological deficits Skin: No rashes appreciated the patient does appear visually jaundice Psych: Cooperative Lab / Micro Data 11/06/24 05:17 11/06/24 05:17 Labs: Laboratory Results - last 24 hr 11/06/24 05:17: WBC 11.6 H, RBC 4.51 L, Hgb 12.9 L, Hct 38.7 L, MCV 85.8, MCH 28.6, MCHC 33.3, RDW Std Deviation 41.1, RDW Coeff of Selene 13.2, Plt Count 363, MPV 8.9, Immature Gran % (Auto) 0.500, Neut % (Auto) 63.4, Lymph % (Auto) 13.1 L, Ross % (Auto) 9.6, Eos % (Auto) 12.4 H, Baso % (Auto) 1.0, Absolute Neuts (auto) 7.3, Absolute Lymphs (auto) 1.52, Nucleated RBC % 0, Sodium 133, Potassium 3.7,Chloride 98, Carbon Dioxide 21.0, Anion Gap 14, BUN 9, Creatinine1.18, Estim Creat Clear Calc 80.26, Est GFR (MDRD) Non-Af 71, BUN/Creatinine Ratio 7.9 L, Glucose 109 H, Calcium 8.7, Total Bilirubin 14.00 H, AST 183 H, RSL515 H, Alkaline Phosphatase 514 H, Total Protein 6.3, Albumin 3.3 L, Globulin2.9, Albumin/Globulin Ratio 1.1 Imaging Radiology Impression Abdomen/Pelvis CT 11/06/24 06:40 IMPRESSION: Dilated intrahepatic biliary ducts as well as the common bile duct down to the region of the ampulla of Vater. Dilatation of the pancreatic duct at the level of the head of the pancreas. An obstructive mass/lesion should be ruled out in the region of the ampulla Vater. ERCP recommended. Headache cyst dilatation of the gallbladder. Reading Location: [id number] Assessment & Plan Assessment/Plan (1) Choledocholithiasis: (2) Jaundice: PLAN: 58-year-old gentleman with obstructive jaundice and right upper quadrant pain. Differential diagnosis does include biliary stricture, malignancy such ascholangiocarcinoma, choledocholithiasis, choledochal cyst with choledocholithiasis. He will undergo ERCP to evaluate his hepatobiliary tree. He will also get CT scan abdomen pelvis. He was explained alternatives, risk and benefits include not withstanding bleeding, infection, septal, perforation, need for return to . He will have an ASA of 3. Charges/Coding Visit Charges Inpatient E&M: 01478 Init Hosp L3 11/06/24 1144 Cosigner Signature (if applicable): CC: Dr. Beryl Harrison DO~ Signed [facility]08-18-2025 Consult note [facility] Medical Records Department [address] [place] [address] Pre-Anesthesia Evaluation 11/06/24 1113 MR#: [id number] Acct: [id number] Name: MEJIAMICHAEL Sr. Rep #:[id number] : 1965 58 From: Rocky Garcia MD PCP: Dr. Beryl Harrison DO Status:AD M IN Y Race: C Location: [place] [address] ASA Classification* ASA Classification ASA Classification: 3 Assessment & Plan Anesthesia* Anesthesia Assessment Anesthesia Assessment: Discussed sedation and/or anesthesia options, risks, benefits, and alternatives with patient/parents/legal guardian/POA. Questions invited. The patient/parents/legal guardian/POA seems to understand and agrees to proceedwith anesthesia plan. Reviewed the physical assessment, medical history, allergy history and patient home medications list prior to surgery/procedure/anesthetic and documented any changes. Performed airway and anesthesia risk assessments. Anesthesia Type Anesthesia Type: General History Source History Obtained from:: Patient and Chart Anesthesia Focused Assessment* Temperature: 98.7 F Pulse Rate: 68 Blood Pressure: 128/89 Respiratory Rate: 18 Pulse Ox: 96 Oxygen Delivery Method: Room Air Airway Assessment Mouth opens: >3 cm Mallampati Score: III Teeth Condition: Chipped/Broken (Patient has poor dentition.) and Missing (Multiple missing teeth. Rest of the teeth are currently tight.) Neck Range of motion (ROM): Limited ROM (Somewhat Decreased) Labs Anesthesia Preop lab: 2 CBC WBC 11.6 K/mm3 (4.4-11.0) H 11/06/24 05:17 5 RBC 4.51 M/mm3 (4.6-6.2) L 11/06/24 05:17 11/06/24 Hgb 12.9 g/dL (13.0-16.5) L 11/06/24 05:17 5 Hct 38.7 % (40-54) L 11/06/24 05:17 11/06/24 Plt Count 363 K/mm3 (150-450) 11/06/24 05:17 11/06/24 CHEMISTRY Potassium 3.7 mmol/L (3.3-5.1) 11/06/24 05:17 11/06/24 Sodium 133 mmol/L (133-145) 11/06/24 05:17 11/06/24 BUN 9 mg/dL (4-19) 11/06/24 05:17 11/06/24 Creatinine 1.18 mg/dL (0.70-1.20) 11/06/24 05:17 11/06/24 Glucose 109 mg/dL (70-99) H 11/06/24 05:17 11/06/24 COAG Pre-Assessment Diagnosis/Proposed Procedure Planned Operative Procedure(s): Endoscopic retrograde cholangiopancreatography Anesthesia History Anesthesia History - deburr technician: Anesthesia History - deburr technician Hx Hospitalization Any Problems With Anesthesia No 11/06/24 06:31 Cholinesterase deficiency No 11/06/24 06:31 You/Your Family Experience No 11/06/24 06:31 fever (hyperthermia) with Relationship Recent Exposure to Contagious No 11/06/24 06:31 Disease Does patient have nerve No 11/06/24 06:31 stimulator Patient instructed to have No 11/06/24 06:31 device shut off --Does patient have Pacemaker or ICD? When Was Last Pacemaker Check QUESTION #4 FULL TEXT: You/Your Family Experience fever (hyperthermia) with Anesthesia Last Oral Intake Last Oral intake: Last Oral Intake NPO since Meds taken in AM with sips of water? Meds patient instructed to take am of surgery Any additional information?: Yes NPO since: 00:00 PONV PONV - deburr technician: PONV - deburr technician Female HX of Motion Sickness HX of N/V After Surgery Non-Smoker Duration of Surgery greater than 60 minutes Number of Risk Factors PONV Score Height & Weight Height & Weight: Anesthesia: Height & Weight Height 5 ft 11 in 11/05/24 16:34 Weight: 97.5 kg 11/05/24 16:34 Body Mass Index (BMI) 29.9 11/05/24 16:34 Respiratory Assessment Respiratory Assessment - deburr technician: Respiratory Tract Infection Hx - deburr technician Hx Respiratory Tract Infection No 11/06/24 06:31 STOP Sleep Apnea STOP Sleep Apnea - deburr technician: STOP Sleep Apnea - deburr technician Hx Hypertension Yes 11/05/24 16:34 Hx Sleep Apnea No 11/05/24 16:34 CPAP BIPAP Do you snore loudly (louder Yes 11/05/24 16:34 than talking or can be heard Do you often feel tired/ Yes 11/05/24 16:34 fatigued/ sleepy during daytime? Has anyone observed you stop Yes 11/05/24 16:34 breathing during sleep? STOP Results Positive 11/05/24 16:34 QUESTION #5 FULL TEXT : Do you snore loudly (louder than talking or can be heard through closeddoors)? 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 Specify any problems Hx of Preganancy in last 3 N/A 11/05/24 16:34 Months Nurse Filling Out Transfusion CDANTONE 11/05/24 16:34 & Questions: Date: 11/05/24 11/05/24 16:34 Time: 16:39 11/05/24 16:34 Patient unable to answer at this time (ie. confused, unrespo /Reproduction History /Reproductive History - deburr technician: /Reproductive Hx- deburr technician Hx Now No 11/06/24 06:31 Gestational Age (in weeks): EDC: Hx Hx Para Hx Section SAB No 11/06/24 06:31 Active Medications Active Medications: Current Medications Generic Name Dose Route Start Last Admin Trade Name Freq PRN Reason Stop Dose Admin Albuterol Sulfate 2.5 mg 11/05/24 16:56 Albuterol 2.5 Mg/3 Ml Vial.Neb. INHALATION Q2H PRN PRN SOB &/OR WHEEZING Sodium Chloride 250 mls @ 15 mls/hr 11/05/24 16:36 IV .[id number] PRN Saline Flush Sodium Chloride 250 mls @ 15 mls/hr 11/05/24 16:36 IV .[id number] PRN Additional IVPB Infusion Sodium Chloride 1,000 mls @ 100 mls/hr 11/05/24 17:00 11/06/24 04:24 IV 11/06/24 12:59 100 mls/hr .Q10H GILBERTO Administration Piperacillin Sod/Tazobactam 50 mls @ 12.5 mls/hr 11/05/24 22:00 11/06/24 09:00 Sod 3.375 gm/ Sodium Chloride IV Infused Q8 GILBERTO Infusion Lactated Ringer's 1,000 mls @ 15 mls/hr 11/06/24 11:00 11/06/24 10:56 IV 15 mls/hr .Q48H GILBERTO Administration Ketorolac Tromethamine 15 mg 11/05/24 16:56 Ketorolac 15 Mg/Ml Vial IV 11/10/24 16:58 Q6H PRN PRN Pain Score 1-10 Loratadine 10 mg 11/06/24 10:00 11/06/24 10:28 Loratadine 10 Mg Tablet PO Not Given DAILY [facility] Losartan Potassium 50 mg 11/06/24 10:00 11/06/24 10:28 Losartan Potassium 50 Mg Tablet PO Not Given DAILY [facility] Protocol Melatonin 10 mg 11/05/24 16:56 Melatonin 10 Mg Tablet PO QHS PRN PRN INSOMNIA Morphine Sulfate 2 - 4 mg 11/05/24 16:56 11/06/24 09:47 Morphine 2 Mg/Ml Syringe IV 2 mg Q3H PRN PRN Administration Pain Score 6-10 Morphine Sulfate 2 - 4 mg 11/05/24 17:15 Morphine 4 Mg/Ml Syringe IV Q3H PRN PRN Pain Score 6-10 Ondansetron HCl 4 mg 11/05/24 16:56 11/05/24 22:13 Ondansetron 4 Mg/2 Ml Vial IV 4 mg Q8H PRN PRN Administration NAUSEA/VOMITING Oxycodone HCl 5 mg 11/05/24 16:56 11/06/24 05:04 Oxycodone 5 Mg Tablet PO 5 mg Q4H PRN PRN Administration Pain Score 4-10 Pantoprazole Sodium 40 mg 11/05/24 22:00 11/06/24 10:28 Pantoprazole Sodium 40 Mg Tablet PO Not Given BID [facility] Senna/Docusate Sodium 2 tablet 11/05/24 16:56 Senna/Docusate Sodium 1 Tablet PO BID PRN PRN Constipation Sodium Chloride 10 - 40 ml 11/05/24 16:36 11/06/24 09:48 0.9% Saline Lock 10 Ml Syringe IV 10 ml UD PRN Administration SALINE FLUSH [facility] Medical History Depression Anxiety HTN (hypertension) Appendicitis Home Medications ?Medication ?Instructions ?Recorded ?Last Taken ?Type cetirizine 10 mg tablet (Allergy 10 mg PO DAILY allerg ies 11/05/24 Unknown History Relief (cetirizine)) losartan 50 mg tablet 50 mg PO DAILY blood pressur e 11/05/24 Unknown History pantoprazole 40 mg tablet,delayed 40 mg PO BID gerd Unknown History release sertraline 100 mg tablet 100 mg PO DAILY anxiety 10/20 10/13 Unknown History Allergy/AdvReac Type Severity Reaction Status Date / Time azithromycin (From Zithromax) Allergy Severe Rash Verified 11/06/24 11:19 Surgical History H/O sinus surgery H/O hernia repair Social History Smoking Status: Former smoker Review of Systems (Anesthesia) ROS Narrative System reviewed and no additional complaints, except as documented. 11/06/24 1124 rosa AGUSTIN> Date _ Rocky Garcia MD Cosigner Signature: Date CC: ~ Signed [facility]08-18-2025 Consult note Author [facility] Note Date/Time November 06, 2024 7: 27am [facility] Medical Records Department [address] [place] [address] Consultation - Surgical 11/06/24 0725 MR#: [id number] Acct: [id number] Name: MICHAEL MEJIA Sr. Rep #:[id number] : 1965 58 From: Boston mckay MD PCP: Dr. Beryl Harrison, DO Status:AD M IN Location: [place] [id number] Assessment & Plan Assessment/Plan (1) Jaundice: PLAN: The patient is obstructive jaundice. I believe Dr. Murray is ordering a repeat CT scan to evaluate the bile duct. I will be available to remove the patient's gallbladder after obstruction is been dealt with. Boston Williamson MD Pager: [facility] [address] [place] [address], [address] [place] [address] Office: HPI Consult Data Date of Consult: 11/06/24 HPI Narrative HPI Narrative: MICHAEL MEJIA, is a 58 M who presents with jaundice. Patient has been having some epigastric pain. This is been going on for several weeks. Patient has CT scan that showed thickening of the gallbladder and an ultrasound showed stones. There is no pancreatic mass or biliary mass identified. The patient's bilirubin is markedly elevated. [facility] Medical History Depression Anxiety HTN (hypertension) Appendicitis Home Medications ?Medication ?Instructions ?Recorded ?Last Taken ?Type cetirizine 10 mg tablet (Allergy 10 mg PO DAILY allerg ies 11/05/24 Unknown History Relief (cetirizine)) losartan 50 mg tablet 50 mg PO DAILY blood pressur e 11/05/24 Unknown History pantoprazole 40 mg tablet,delayed 40 mg PO BID gerd Unknown History release sertraline 100 mg tablet 100 mg PO DAILY anxiety 10/20 10/13 Unknown History Allergy/AdvReac Type Severity Reaction Status Date / Time No Known Allergies Allergy Verified 09/13/20 11:27 Surgical History H/O sinus surgery H/O hernia repair Social History Smoking Status: Former smoker ROS Constitutional Constitutional: Denies anorexia, chills or fatigue Eyes Eyes: Denies blurry vision ENT HEENT: Denies abnormal hearing Cardiovascular Cardiovascular: Denies chest pain Respiratory/Chest Respiratory/Chest: Denies cough or dyspnea Gastrointestinal Gastrointestinal: Reports abdominal pain; Denies melena, nausea or rectal bleeding Genitourinary Genitourinary: Denies change in urinary stream Musculoskeletal Musculoskeletal: Denies abnormal gait Integumentary Integumentary: Reports jaundice Neurologic Neurologic: Denies abnormal gait Physical Exam Const alert and oriented x3 HEENT normocephalic Eyes PERRL Resp normal respiratory effort Cardio Rate: regular rate Rhythm: regular rhythm GI soft to palpation Palpation: tender epigastric Extremity normal to inspection Lab / Micro Data 11/06/24 05:17 11/06/24 05:17 Labs: Laboratory Results - last 24 hr 11/06/24 05:17: WBC 11.6 H, RBC 4.51 L, Hgb 12.9 L, Hct 38.7 L, MCV 85.8, MCH 28.6, MCHC 33.3, RDW Std Deviation 41.1, RDW Coeff of Selene 13.2, Plt Count 363, MPV 8.9, Immature Gran % (Auto) 0.500, Neut % (Auto) 63.4, Lymph % (Auto) 13.1 L, Ross % (Auto) 9.6, Eos % (Auto) 12.4 H, Baso % (Auto) 1.0, Absolute Neuts (auto) 7.3, Absolute Lymphs (auto) 1.52, Nucleated RBC % 0, Sodium 133, Potassium 3.7, Chloride 98, Carbon Dioxide 21.0, Anion Gap 14, BUN 9, Creatinine1.18, Estim Creat Clear Calc 80.26, Est GFR (MDRD) Non-Af 71, BUN/Creatinine Ratio 7.9 L, Glucose 109 H, Calcium 8.7, Total Bilirubin 14.00 H, AST 183 H, GWS806 H, Alkaline Phosphatase 514 H, Total Protein 6.3, Albumin 3.3 L, Globulin 2.9, Albumin/Globulin Ratio 1.1 11/06/24 0727 <Electronically signed by Boston Williamson MD> Cosigner Signature (if applicable): CC: Dr. Beryl Harrison, ~ Signed [facility] Work Phone: 1(796) 509-491308-18-2025 Radiology Diagnostic study note [facility] [address] [place], [place] [id number] Abdomen/Pelvis W IV Cont ONLY MR#: [id number] Acct: [id number] Name: MEJIAMICHAEL Sr. Rep #: [id number] : 1965 M 58 From: Andreas Ballard MD PCP: Dr. Beryl Harrison, DO Status: AD M IN Study:Abdomen/Pelvis W IV Cont ONLY Date of E xam: 11/06/24 Exam# [id number] Ordering Dr: Abigail Murray DO PROCEDURE: ABDOMEN/PELVIS W IV CONT ONLY 11/06/2024 REASON FOR EXAM: OBSTRUCTIVE JAUNDICE TECHNIQUE: ABDOMEN/PELVIS W IV CONT ONLY Coronal and Sagittal reconstruction series were provided. CONTRAST: Isovue 370 VOLUME: 100 mL One or more dose reduction techniques were used (e.g., Automated exposure control, adjustment of the mA and/or kV according to patient size, use of iterative reconstruction technique. RADIATION DOSE SUMMARY: CTDlvol: 17.25 mGy DLP: 1189.17 mGycm COMPARISON: None FINDINGS: Lung bases: The lung bases are clear. There is evidence of coronary artery calcification. Liver: There is evidence of intrahepatic biliary ductal dilatation. There is a 15.9 mm cyst in the central portion of the right lobe of the liver. A 12 mm cyst is also seen along the inferior aspect of the right lobe of the liver. Gallbladder: The gallbladder is distended. The common bile duct is dilated downto the region of theampulla of Vater. Proximally, it 15 mm distally, it measures 8.3 mm. There is also evidence of dilatation of the proximal portion of the pancreatic duct. A mass in the region of the ampulla of Vater should be ruled out. Spleen: Normal size. Pancreas: Dilatation of the pancreatic duct in the region of the head of the pancreas. Adrenals: Unremarkable Kidneys: Normal renal sizes. No hydronephrosis. Bladder: Unremarkable Mild central prostatic calcifications. Bowel: Colonic diverticulosis without diverticulitis. Appendix: Status post appendectomy. Lymph nodes: Unremarkable. Vasculature: Mild diffuse atherosclerotic calcifications are noted. Peritoneum / Retroperitoneum: Small umbilical hernia containing fat. Bones: Mild degenerative changes of the lumbar spine CT/Abdomen/Pelvis W IV Cont ONLY IMPRESSION: Dilated intrahepatic biliary ducts as well as the common bile duct down to the region of the ampulla of Vater. Dilatation of the pancreatic duct at the level of the head of the pancreas. An obstructive mass/lesion should be ruled out in the region of the ampulla Vater. ERCP recommended. Headache cyst dilatation of the gallbladder. Reading Location: [facility] CC: Dr. Beryl Harrison DO; Tim Murray DO ~ Biological Chemist: Signed [facility]08-18-2025 Consult note [facility] Medical Records Department [address] [place] [address] Consultation - Surgical 11/06/24 0725 MR#: [id number] Acct: [id number] Name: MICHAEL MEJIA . Rep #:[id number] : 1965 58 From: Boston mckay MD PCP: Dr. Beryl Harrison, DO Status:AD M IN Location: [facility] [id number] Assessment & Plan Assessment/Plan (1) Jaundice: PLAN: The patient is obstructive jaundice. I believe Dr. Murray is ordering a repeat CT scan to evaluate the bile duct. I will be available to remove the patient's gallbladder after obstruction is been dealt with. Boston Williamson MD Pager: [facility] [address] [place] [address], [address] [place] [address] Office: HPI Consult Data Date of Consult: 11/06/24 HPI Narrative HPI Narrative: MICHAEL MEJIA, is a 58 M who presents with jaundice. Patient has been having some epigastric pain. This is been going on for several weeks. Patient has CT scan that showed thickening of the gallbladder and an ultrasound showed stones. There is no pancreatic mass or biliary mass identified. The patient's bilirubin is markedly elevated. [facility] Medical History Depression Anxiety HTN (hypertension) Appendicitis Home Medications ?Medication ?Instructions ?Recorded ?Last Taken ?Type cetirizine 10 mg tablet (Allergy 10 mg PO DAILY allerg ies 11/05/24 Unknown History Relief (cetirizine)) losartan 50 mg tablet 50 mg PO DAILY blood pressur e 11/05/24 Unknown History pantoprazole 40 mg tablet,delayed 40 mg PO BID gerd Unknown History release sertraline 100 mg tablet 100 mg PO DAILY anxiety 10/20 10/13 Unknown History Allergy/AdvReac Type Severity Reaction Status Date / Time No Known Allergies Allergy Verified 09/13/20 11:27 Surgical History H/O sinus surgery H/O hernia repair Social History Smoking Status: Former smoker ROS Constitutional Constitutional: Denies anorexia, chills or fatigue Eyes Eyes: Denies blurry vision ENT HEENT: Denies abnormal hearing Cardiovascular Cardiovascular: Denies chest pain Respiratory/Chest Respiratory/Chest: Denies cough or dyspnea Gastrointestinal Gastrointestinal: Reports abdominal pain; Denies melena, nausea or rectal bleeding Genitourinary Genitourinary: Denies change in urinary stream Musculoskeletal Musculoskeletal: Denies abnormal gait Integumentary Integumentary: Reports jaundice Neurologic Neurologic: Denies abnormal gait Physical Exam Const alert and oriented x3 HEENT normocephalic Eyes PERRL Resp normal respiratory effort Cardio Rate: regular rate Rhythm: regular rhythm GI soft to palpation Palpation: tender epigastric Extremity normal to inspection Lab / Micro Data 11/06/24 05:17 11/06/24 05:17 Labs: Laboratory Results - last 24 hr 11/06/24 05:17: WBC 11.6 H, RBC 4.51 L, Hgb 12.9 L, Hct 38.7 L, MCV 85.8, MCH 28.6, MCHC 33.3, RDW Std Deviation 41.1, RDW Coeff of Selene 13.2, Plt Count 363, MPV 8.9, Immature Gran % (Auto) 0.500, Neut % (Auto) 63.4, Lymph % (Auto) 13.1 L, Ross % (Auto) 9.6, Eos % (Auto) 12.4 H, Baso % (Auto) 1.0, Absolute Neuts (auto) 7.3, Absolute Lymphs (auto) 1.52, Nucleated RBC % 0, Sodium 133, Potassium 3.7,Chloride 98, Carbon Dioxide 21.0, Anion Gap 14, BUN 9, Creatinine1.18, Estim Creat Clear Calc 80.26, Est GFR (MDRD) Non-Af 71, BUN/Creatinine Ratio 7.9 L, Glucose 109 H, Calcium 8.7, Total Bilirubin 14.00 H, AST 183 H, OEP999 H, Alkaline Phosphatase 514 H, Total Protein 6.3, Albumin 3.3 L, Globulin2.9, Albumin/Globulin Ratio 1.1 11/06/24 0727 Cosigner Signature (if applicable): CC: Dr. Beryl Harrison, DO~ Signed [facility]08-17-2025 History and physical note Author Kate Stark [facility] Note Date/Time November 05, 2024 5: 37pm [facility] Medical Records Department [address] [place] [id number] H&P Exam - Hospitalist 11/05/24 1656 MR#: [id number] Acct: [id number] Name: MICHAEL MEJIA . Rep #:[id number] : 1965 58 From: Kate Stark MD PCP: Dr. Beryl Harrison, DO Status:AD M IN Location: [facility] [id number] HPI - General General Date of Admission: 11/05/24 Date of Service: 11/05/24 Chief Complaint: Abd pain and jaundince HPI Narrative MICHAEL MEIJA, is a 58-year-old male with a history of hypertension, GERD, anxiety presented to [facility] facility with 3 weeks of abdominal pain. 2 weeks ago he had a CT abdomen and pelvis with contrast which showed thickening of the gallbladder but no other acute abnormalities, he had worsening pain over the past week or so and developed jaundice, 4 days ago he had an ultrasound that showed common bile duct of 11 mm, in the ED today his bilirubin was found to be 15 and imaging showed gallbladder sludge and stones. Patient suspected to have choledocholithiasis, given the above he was given antibiotics and [facility] contacted for transfer. Accepting hospitalist discussed withthe GI and surgery and accepted the patient, they will be seen in consult. Patient arrived to the floor in stable condition. Evaluated patient at bedside. Patient reports history as above, he said right now his nausea and pain are little bit better after getting antibiotics and medication at the [facility] facility in [place]. When asked for ROS patient said a little bit of everything but the most notably he has been having the intermittent upper abdominal pain that is worse when he eats or drinks so has not been eating or drinking very well and has been having a lot of gas with intermittent bowel movements but notes he has not been eating well so he would not expect you to have any bowel movements. Does note that he has been having what he thinks are fevers at home with sweats and then chills but does not sound as though he has taken his temperature during those times. [facility] Medical History (Updated 11/05/24 @ 17:[address] Kate Stark MD) Anxiety Appendicitis Depression HTN (hypertension) Home Medications ?Medication ?Instructions ?Recorded ?Last Taken ?Type cetirizine 10 mg tablet (Allergy 10 mg PO DAILY allerg ies 11/05/24 Unknown History Relief (cetirizine)) losartan 50 mg tablet 50 mg PO DAILY blood pressur e 11/05/24 Unknown History pantoprazole 40 mg tablet,delayed 40 mg PO BID gerd Unknown History release sertraline 100 mg tablet 100 mg PO DAILY anxiety 10/20 10/13 Unknown History Allergy/AdvReac Type Severity Reaction Status Date / Time No Known Allergies Allergy Verified 09/13/20 11:27 Surgical History (Updated 11/05/24 @ 16:42 by Poornima Walker) H/O hernia repair H/O sinus surgery Social History Smoking Status: Former smoker ROS ROS Narrative Asked for ROS, answers as above, for all other questions patient gave a blanket statement a little bit of everything Vital Signs Vital Signs Vital Signs: 11/05/24 16:48 Temperature 98.3 F Temperature Source Oral Pulse Rate 97 Respiratory Rate 16 Blood Pressure 134/78 H Blood Pressure Mean 96 Blood Pressure Source Monitor Blood Pressure Position Semi-Fowlers Blood Pressure Location Right Arm Pulse Ox 96 Oxygen Delivery Method Room Air Weight Weight: 97.5 kg Body Mass Index (BMI) 29.9 Physical Exam Narrative General: Alert, oriented, no apparent distress HEENT: Atraumatic, normocephalic Eyes: Some scleral icterus appreciated, normal conjunctiva, extraocular movements grossly intact Neck: Supple Respiratory: Clear to auscultation bilaterally, normal respiratory effort Cardiovascular: Regular rate and rhythm GI: Soft, somewhat protuberant, did not have any significant tenderness on my evaluation with no rebound, guarding, or rigidity Extremities: No edema Musculoskeletal: Moving all extremities Neuro: No overt focal neurological deficits Skin: No rashes appreciated the patient does appear visually jaundice Psych: Cooperative Assessment & Plan Assessment/Plan (1) Jaundice: (2) Choledocholithiasis: PLAN: Plan # Jaundice, common bile duct dilation, gallbladder sludge and stones -Bilirubin of 15 in outlying facility with elevated liver enzymes -overview of chart reveals AST 226, alpha Umberto 599 total bili of 15.4 -Copies of reports on physical chart -right upper quadrant ultrasound from 11/03 with distended gallbladder filled with sludges small calculi with thickening of wall and common bile duct dilated 10.1 mm but duct is not visualized in its entirety though no introductory calculus demonstrated on what was visible -Suspected choledocholithiasis but given history as above and significance of elevation as well as patient reported fevers patient was already given antibiotics, will continue empiric antibiotics at this time -GI consult -Surgery consult -IV fluids -Supportive care -N.p.o. at midnight #Hypertension - Continue home hypertensives #anxiety -Continue home medications #GERD -Continue PPI #DVT ppx: SCDs Kate Stark MD Time spent in the patient's overall evaluation, decision-making process, review of diagnostic data, adjustment of management, discussion with other providers, nursing and ancillary staff involved in patient's care documentation, 60 Minutes Charges/Coding Visit Charges Inpatient E&M: 31508 Init Hosp L2 11/05/24 1737 <Electronically signed by Kate Stark MD> Cosigner Signature (if applicable): CC: Dr. Beryl Harrison DO; Dr. Kate Stark MD~ Signed [facility] Work Phone: 1(253) 853-983908-17-2025 Evaluation note* Diagnosis Onset Date Resolution Status Admit Date Choledocholithiasis acute 2024 4:58pm Jaundice acute November 05, 2 025 4:58pm [facility] Work Phone: 1(281) 765-777408-17-2025 Evaluation note* Diagnosis Onset Date Resolution Status Admit Date Choledocholithiasis resolved 2024 4:58pm Jaundice resolved November 05, 2 025 4:58pm [facility] Work Phone: 1(418) 253-589108-17-2025 Evaluation note* Diagnosis Onset Date Resolution Status Admit Date Choledocholithiasis resolved 2024 4:58pm Jaundice resolved November 05, 2 025 4:58pm S/P cholecystectomy acute Septe [facility] 2024 12:59pm [facility] Work Phone: 1(880) 230-623608-17-2025 Evaluation note* Diagnosis Onset Date Resolution Status Admit Date Choledocholithiasis resolved 2024 4:58pm Jaundice resolved November 05, 2 025 4:58pm S/P cholecystectomy acute Septe [facility] 2024 12:59pm S/P cholecystectomy acute Septe [facility] 2024 1:37pm S/P ERCP acute November 28, 2024 1:37pm S/P ERCP acute January 03, 2025 9:47am [facility] Work Phone: 1(126) 402-563208-17-2025 History and physical note [facility] Medical Records Department [address] [place] [address] H&P Exam - Hospitalist 11/05/24 1656 MR#: [id number] Acct: [id number] Name: MICHAEL MEJIA Sr. Rep #:[id number] : 1965 58 From: Kate Stark MD PCP: Dr. Beryl Harrison, DO Status:AD M IN Location: [facility] [id number] HPI - General General Date of Admission: 11/05/24 Date of Service: 11/05/24 Chief Complaint: Abd pain and jaundince HPI Narrative MICHAEL MEJIA, is a 58-year-old male with a history of hypertension, GERD, anxiety presented to [facility] with 3 weeks of abdominal pain. 2 weeks ago he had a CT abdomen and pelvis with contrast which showed thickening of the gallbladder but no other acute abnormalities, he had worsening pain over the past week or so and developed jaundice, 4 days ago he had an ultrasound that showed common bile duct of 11 mm, in the ED today his bilirubin was found to be 15 and imaging showed gallbladder sludge and stones. Patient suspected to have choledocholithiasis, given the above he was given antibiotics and [facility] contacted for transfer. Accepting hospitalist discussed [facility] GI and surgery and accepted the patient, they will be seen in consult. Patient arrived to [facility] in stable condition. Evaluated patient at bedside. Patient reports history as above, he said right now his nausea and pain are little bit better after getting antibiotics and medication at the [facility] facility in [place]. When asked for ROS patient said a little bit of everything but the most notably he has been having the intermittent upper abdominal pain that is worse when he eats or drinks so has not been eating or drinking very well and has been having a lot of gas with intermittent bowel movements but notes he has not been eating well so he would not expect you to have any bowel movements. Does note that he has been having what he thinks are fevers at home with sweats and then chills but does not sound as though he has taken his temperature during those times. [facility] Medical History (Updated 11/05/24 @ 17:[address] Kate Stark MD) Anxiety Appendicitis Depression HTN (hypertension) Home Medications ?Medication ?Instructions ?Recorded ?Last Taken ?Type cetirizine 10 mg tablet (Allergy 10 mg PO DAILY allerg ies 11/05/24 Unknown History Relief (cetirizine)) losartan 50 mg tablet 50 mg PO DAILY blood pressur e 11/05/24 Unknown History pantoprazole 40 mg tablet,delayed 40 mg PO BID gerd Unknown History release sertraline 100 mg tablet 100 mg PO DAILY anxiety 10/20 10/13 Unknown History Allergy/AdvReac Type Severity Reaction Status Date / Time No Known Allergies Allergy Verified 09/13/20 11:27 Surgical History (Updated 11/05/24 @ 16:42 by Poornima Walker) H/O hernia repair H/O sinus surgery Social History Smoking Status: Former smoker ROS ROS Narrative Asked for ROS, answers as above, for all other questions patient gave a blanket statement a littlebit of everything Vital Signs Vital Signs Vital Signs: 11/05/24 16:48 Temperature 98.3 F Temperature Source Oral Pulse Rate 97 Respiratory Rate 16 Blood Pressure 134/78 H Blood Pressure Mean 96 Blood Pressure Source Monitor Blood Pressure Position Semi-Fowlers Blood Pressure Location Right Arm Pulse Ox 96 Oxygen Delivery Method Room Air Weight Weight: 97.5 kg Body Mass Index (BMI) 29.9 Physical Exam Narrative General: Alert, oriented, no apparent distress HEENT: Atraumatic, normocephalic Eyes: Some scleral icterus appreciated, normal conjunctiva, extraocular movements grossly intact Neck: Supple Respiratory: Clear to auscultation bilaterally, normal respiratory effort Cardiovascular: Regular rate and rhythm GI: Soft, somewhat protuberant, did not have any significant tenderness on my evaluation with no rebound, guarding, or rigidity Extremities: No edema Musculoskeletal: Moving all extremities Neuro: No overt focal neurological deficits Skin: No rashes appreciated the patient does appear visually jaundice Psych: Cooperative Assessment & Plan Assessment/Plan (1) Jaundice: (2) Choledocholithiasis: PLAN: Plan # Jaundice, common bile duct dilation, gallbladder sludge and stones -Bilirubin of 15 in outlying facility with elevated liver enzymes -overview of chart reveals AST 226, alpha Umberto 599 total bili of 15.4 -Copies of reports on physical chart -right upper quadrant ultrasound from 11/03 with distended gallbladder filled with sludges small calculi with thickening of wall and common bile duct dilated 10.1 mm but duct is not visualized in its entirety though no introductory calculus demonstrated on what was visible -Suspected choledocholithiasis but given history as above and significance of elevation as well as patient reported fevers patient was already given antibiotics, will continue empiric antibiotics at this time -GI consult -Surgery consult -IV fluids -Supportive care -N.p.o. at midnight #Hypertension - Continue home hypertensives #anxiety -Continue home medications #GERD -Continue PPI #DVT ppx: SCDs Kate Stark MD Time spent in the patient's overall evaluation, decision-making process, review of diagnostic data,adjustment of management, discussion with other providers, nursing and ancillary staff involved in patient's care documentation, 60 Minutes Charges/Coding Visit Charges Inpatient E&M: 92838 Init Hosp L2 11/05/24 9629 Cosigner Signature (if applicable): CC: Dr. Beryl Harrison DO; Dr. Kate Stark MD~ [facility] Medical Records Department [address] [place] [address] Anesthesia Postop Eval II 01/03/25 1355 MR#: [id number] Acct: [id number] Name: MICHAEL MEJIA Rep #:[id number] : 1965 59 From: [employer] PCP: Trupti Painter NP-C Status:DEP S DC Y Race: C Location: EN Anesthesia Postop Eval I Sum Postop Eval Completion status Anesthesia document: Postop Eval 1 completed: Yes Anesthesia Postop Eval I Summary Anesthesia Postop Eval I Summary: Anesthesia Postop Eval I: Assessment Summary Airway patent Yes 01/03/25 12:43 [email or web address] Spontaneous unlabored Yes 01/03/25 12:43 [email or web address] respirations Mental status Awake,Calm 01/03/25 12:43 [email or web address] nausea No 01/03/25 12:43 [email or web address] Vomiting No 01/03/25 12:43 [email or web address] Anesthesia Postop Eval I: Fluid Summary Crystalloid volume administer 800 01/03/25 12:43 [email or web address] (ml) Colloids volume administered ( ml) Blood Product volume administered (ml) Total IV fluid infused 800 01/03/25 12:43 [email or web address] Anesthesia Postop Eval I: Summary Notes Anesthesia Complication No 01/03/25 12:43 [email or web address] Anesthesia Complication Comment: Post-operative progress note Anesthesia: Postop Eval II Evaluation Mental status: Awake and Calm Pain Level: 1 nausea: No Vomiting: No Complications Anesthesia Complication: No 01/03/25 1355 MD> Date _ Manas Juarez Signature: Date CC: ~ [facility]igned [facility] Note Date/Time January 03, 2025 1 :45pm [facility] Medical Records Department [address] [place] [address] Anesthesia Postop Eval I 01/03/25 1243 MR#: [id number] Acct: [id number] Name: MEJIAMICHAEL Rep #:[id number] : 1965 59 From: Hank Reese PCP: Trupti Painter NP-Jelena Status:REG S DC Y Race: C Location: [place] [address] Anesthesia: Postop Eval I Current Vital Signs Temperature: 97 F Pulse Rate: 77 Blood Pressure: 108/78 Respiratory Rate: 16 Pulse Ox: 96 Oxygen Delivery Method: Room Air Assessment Airway patent: Yes Spontaneous unlabored respirations: Yes Mental status: Awake and Calm nausea: No Vomiting: No Anesthesia Complication: No Fluid Hydration Crystalloid volume administer (ml): 800 Total IV fluid infused: 800 Progress Note Anesthesia document: Postop Eval 1 completed: Yes 01/03/25 1243 <Electronically signed by Hank Reese > Date _ Hank Juarez Signature: Date CC: ~ Signed [facility] Work Phone: Consult note Author Manas Cantrell [facility] Note Date/Time January 03, 2025 1 :55pm [facility] Medical Records Department [address] [place] [address] Anesthesia Postop Eval II 01/03/25 1355 MR#: [id number] Acct: [id number] Name: MICHAEL MEJIA Rep #:[id number] : 1965 59 From: [employer] PCP: Trupti Painter, MANAGER TRAFFIC-C Status:DEP S SUMEET Y Race: C Location: EN Anesthesia Postop Eval I Sum Postop Eval Completion status Anesthesia document: Postop Eval 1 completed: Yes Anesthesia Postop Eval I Summary Anesthesia Postop Eval I Summary: Anesthesia Postop Eval I: Assessment Summary Airway patent Yes 01/03/25 12:43 [email or web address] Spontaneous unlabored Yes 01/03/25 12:43 [email or web address] respirations Mental status Awake,Calm 01/03/25 12:43 [email or web address] nausea No 01/03/25 12:43 [email or web address] Vomiting No 01/03/25 12:43 [email or web address] Anesthesia Postop Eval I: Fluid Summary Crystalloid volume administer 800 01/03/25 12:43 [email or web address] (ml) Colloids volume administered ( ml) Blood Product volume administered (ml) Total IV fluid infused 800 01/03/25 12:43 [email or web address] Anesthesia Postop Eval I: Summary Notes Anesthesia Complication No 01/03/25 12:43 [email or web address] Anesthesia Complication Comment: Post-operative progress note Anesthesia: Postop Eval II Evaluation Mental status: Awake and Calm Pain Level: 1 nausea: No Vomiting: No Complications Anesthesia Complication: No 01/03/25 1355 <Electronically signed by Manas Cantrell MD> Date _ Manas Cantrell MD [facility] Signature: Date CC: ~ Signed [facility] Work Phone: Discharge summary Author Boston Williamson [facility] Note Date/Time November 10, 2024 11 :57am [facility] Medical Records Department [address] [place] [address] Instructions for Home/Discharge Instructions 11/10/24 1154 MR#: [id number] Acct: [id number] Name: MICHAEL MEJIA . Rep #:[id number] : 1965 58 From: Boston mckay MD PCP: Dr. Beryl Harrison, DO Status:AD M IN Discharge Instructions DC O2, CPAP, BIPAP needs Home O2 Discharge instructions: No Dressing / Incision Discharge Activity: May Not Drive (for 2-3 days or while taking narcotic pain medications.) and - (Do not drive, work heavy equipment or sign legal documents for 24 hours.) May shower in (days): 1 Lifting Restrictions: 20 lbs for 2 weeks Additional Activity Instructions:: Pain medication may cause nausea. You should typically eat light foods as you take your pain medications. Pain medication may also cause constipation. If this is a problem for you, please discuss with your doctor. Dressing / Incision Call your doctor if your incision/area has: Continuous Slow Oozing, Sudden Increased Bleeding, Increased Pain/ Swelling, Increased Redness and Foul Smelling Discharge Call your doctor if you observe: Fever of 101 or Higher Suture Line Care: Avoid Pulling/Pushing and Avoid Pinching/Bending Remove Dressing in: 2 days Additional Dressing/Incision Instructions:: Leave operative bandaids on for 2 days. When you remove dressing, leave Steri-Strips on until your follow-up appointment, or until the Steri-Strips fall off on their own. Alternate Tylenol and ibuprofen for pain, oxycodone for breakthrough pain Follow Up Care Please Follow Up With: Boston Williamson MD When: Please call to schedule 2 week follow up appointment. [phone] Test Results: Test results from this visit will be discussed in further detail at your follow- up appointment, if applicable. Discharge Plan Admission Admit Date/Time: 11/05/24 16:58 Attending Provider: Micky Meadows Primary Care Provider: Beryl Harrison Consulting Providers: Boston Williamson; Kate Stark Discharge Orders/Prescriptions Prescriptions: New oxycodone 5 mg Tablet 5 mg PO Q4H PRN PRN (Reason: Pain Score 4-10) 5 Days Qty: 10 0RF amoxicillin-pot clavulanate [Augmentin] 500-125 mg tablet 1 tab PO BID 5 Days Qty: 10 0RF Continued pantoprazole 40 mg tablet,delayed release (DR/EC) 40 mg PO BID sertraline 100 mg tablet 100 mg PO DAILY losartan 50 mg tablet 50 mg PO DAILY cetirizine [Allergy Relief (cetirizine)] 10 mg tablet 10 mg PO DAILY Referrals / Follow Up: Beryl Harrison DO [Primary Care Provider] - Disposition Disposition (needs filled in before D/C Order can be placed): Home, Self Care 11/10/24 1157<Electronically signed by Boston Williamson MD>Boston Williamson MD CC: Dr. Boston Williamson MD; Dr. Beryl Harrison DO; Dr. Kate Stark MD ~ Signed [facility] Work Phone: Discharge summary Author Micky Meadows [facility] Note Date/Time November 10, 2024 12 :12pm [facility] Medical Records Department [address] [place] [address] Instructions for Home/Discharge Instructions 11/10/24 1207 MR#: [id number] Acct: [id number] Name: MICHAEL MEJIA Sr. Rep #:[id number] : 1965 58 From: Micky Meadows DO PCP: Dr. Beryl Harrison DO Status:AD M IN Discharge Instructions DC O2, CPAP, BIPAP needs Home O2 Discharge instructions: No Dressing / Incision Discharge Activity: Return to Normal Activity May shower in (days): 1 Weight Bearing Status: Full weight bearing Additional Activity Instructions:: Pain medication may cause nausea. You should typically eat light foods as you take your pain medications. Pain medication may also cause constipation. If this is a problem for you, please discuss with your doctor. Dressing / Incision Call your doctor if your incision/area has: Continuous Slow Oozing, Sudden Increased Bleeding, Increased Pain/ Swelling, Increased Redness and Foul Smelling Discharge Call your doctor if you observe: Fever of 101 or Higher Suture Line Care: Avoid Pulling/Pushing and Avoid Pinching/Bending Additional Dressing/Incision Instructions:: Leave operative bandaids on for 2 days. When you remove dressing, leave Steri-Strips on until your follow-up appointment, or until the Steri-Strips fall off on their own. Alternate Tylenol and ibuprofen for pain, oxycodone for breakthrough pain Follow Up Care Please Follow Up With: Boston Williamson MD Test Results: Test results from this visit will be discussed in further detail at your follow- up appointment, if applicable. Discharge Plan Admission Admit Date/Time: 11/05/24 16:58 Primary Reason for Your Visit: Cholecystitis, choledocholithiasis Attending Provider: Micky Meadows Primary Care Provider: Beryl Harrison Consulting Providers: Boston Williamson; Kate Stark Discharge Orders/Prescriptions Prescriptions: New oxycodone 5 mg Tablet 5 mg PO Q4H PRN PRN (Reason: Pain Score 4-10) 5 Days Qty: 10 0RF amoxicillin-pot clavulanate [Augmentin] 500-125 mg tablet 1 tab PO BID 5 Days Qty: 10 0RF Continued pantoprazole 40 mg tablet,delayed release (DR/EC) 40 mg PO BID sertraline 100 mg tablet 100 mg PO DAILY losartan 50 mg tablet 50 mg PO DAILY cetirizine [Allergy Relief (cetirizine)] 10 mg tablet 10 mg PO DAILY Referrals / Follow Up: Beryl Harrison DO [Primary Care Provider] - Boston Williamson MD [Med Staff - Active Staff] - See Referral Note (Call his office to make an appointment for follow-up) Disposition Disposition (needs filled in before D/C Order can be placed): Home, Self Care 08/22/25 1212<Electronically signed by Micky Meadows DO>Micky Meadows DO CC: Dr. Boston Williamson MD; Dr. Beryl Harrison DO; Dr. Kate Stark MD ~ Signed [facility] Work Phone: Hospital Discharge instructionsAdditional Instructions Date of Discharge: 11/10/24[facility] Work Phone: Hospital Discharge instructionsAmbulatory Orders* Gastroenterology Location: None [facility] Work Phone: Summary Purpose Family History No Family History Records FoundNo Family History Records FoundNo Family History Records FoundNo Family History Records FoundNo Family History Records Found Advance Directives No Advanced Directives Records Found Advance Directive Response Recorded Date/ Time Do you have a Healthcare Power of Logistic Manager? No November 05, 2024 4:34pm Advance Directive Response Recorded Date/ Time Do you have a Healthcare Power of Logistic Manager? No January 01, 2025 10:56am Do you have a Healthcare Power of Logistic Manager? No November 05, 2024 4:34pm Chief Complaint and Reason for Visit Chief Complaint Admit Date Choledocholithiasis November 05, 2024 4: 56pm JAUNDICE, CONCERN FOR CHOLEDOCHOLITHIASI S November 05, 2024 4:58pm EKG November 06, 2024 6: 10am JAUNDICE, CONCERN FOR CHOLEDOCHOLITHIASI S November 06, 2024 7:25am JAUNDICE, CONCERN FOR CHOLEDOCHOLITHIASI S November 06, 2024 11:40am JAUNDICE, CONCERN FOR CHOLEDOCHOLITHIASI S November 06, 2024 6:54pm JAUNDICE, CONCERN FOR CHOLEDOCHOLITHIASI S November 07, 2024 2:07pm JAUNDICE, CONCERN FOR CHOLEDOCHOLITHIASI S November 07, 2024 3:58pm JAUNDICE, CONCERN FOR CHOLEDOCHOLITHIASI S November 07, 2024 6:52pm JAUNDICE, CONCERN FOR CHOLEDOCHOLITHIASI S November 08, 2024 7:59am JAUNDICE, CONCERN FOR CHOLEDOCHOLITHIASI S November 08, 2024 6:04pm JAUNDICE, CONCERN FOR CHOLEDOCHOLITHIASI S November 09, 2024 9:04am JAUNDICE, CONCERN FOR CHOLEDOCHOLITHIASI S November 09, 2024 6:28pm Reason for Visit Admit Date Choledocholithiasis November 05, 2024 4: 58pm Jaundice November 05, 2024 4: 58pm Chief Complaint Admit Date Choledocholithiasis November 05, 2024 4: 56pm JAUNDICE, CONCERN FOR CHOLEDOCHOLITHIASI S November 05, 2024 4:58pm EKG November 06, 2024 6: 10am JAUNDICE, CONCERN FOR CHOLEDOCHOLITHIASI S November 06, 2024 7:25am JAUNDICE, CONCERN FOR CHOLEDOCHOLITHIASI S November 06, 2024 11:40am JAUNDICE, CONCERN FOR CHOLEDOCHOLITHIASI S November 06, 2024 6:54pm JAUNDICE, CONCERN FOR CHOLEDOCHOLITHIASI S November 07, 2024 2:07pm JAUNDICE, CONCERN FOR CHOLEDOCHOLITHIASI S November 07, 2024 3:58pm JAUNDICE, CONCERN FOR CHOLEDOCHOLITHIASI S November 07, 2024 6:52pm JAUNDICE, CONCERN FOR CHOLEDOCHOLITHIASI S November 08, 2024 7:59am JAUNDICE, CONCERN FOR CHOLEDOCHOLITHIASI S November 08, 2024 6:04pm JAUNDICE, CONCERN FOR CHOLEDOCHOLITHIASI S November 09, 2024 9:04am JAUNDICE, CONCERN FOR CHOLEDOCHOLITHIASI S November 09, 2024 6:28pm JAUNDICE, CONCERN FOR CHOLEDOCHOLITHIASI S November 10, 2024 12:13pm GALLBLADDER 8-November 23, 2024 12:59pm Chief Complaint Admit Date Choledocholithiasis November 05, 2024 4: 56pm JAUNDICE, CONCERN FOR CHOLEDOCHOLITHIASI S November 05, 2024 4:58pm EKG November 06, 2024 6: 10am JAUNDICE, CONCERN FOR CHOLEDOCHOLITHIASI S November 06, 2024 7:25am JAUNDICE, CONCERN FOR CHOLEDOCHOLITHIASI S November 06, 2024 11:40am JAUNDICE, CONCERN FOR CHOLEDOCHOLITHIASI S November 06, 2024 6:54pm JAUNDICE, CONCERN FOR CHOLEDOCHOLITHIASI S November 07, 2024 2:07pm JAUNDICE, CONCERN FOR CHOLEDOCHOLITHIASI S November 07, 2024 3:58pm JAUNDICE, CONCERN FOR CHOLEDOCHOLITHIASI S November 07, 2024 6:52pm JAUNDICE, CONCERN FOR CHOLEDOCHOLITHIASI S November 08, 2024 7:59am JAUNDICE, CONCERN FOR CHOLEDOCHOLITHIASI S November 08, 2024 6:04pm JAUNDICE, CONCERN FOR CHOLEDOCHOLITHIASI S November 09, 2024 9:04am JAUNDICE, CONCERN FOR CHOLEDOCHOLITHIASI S November 09, 2024 6:28pm JAUNDICE, CONCERN FOR CHOLEDOCHOLITHIASI S November 10, 2024 12:13pm GALLBLADDER 11-09November 23, 2024 12:59pm DISCUSS AND SCHEDULE STENT REMOVAL Doreen elder 2024 1:37pm Reason for Visit Admit Date Choledocholithiasis November 05, 2024 4: 58pm Jaundice November 05, 2024 4: 58pm S/P cholecystectomy November 23, 2024 12:59pm Chief Complaint Admit Date Choledocholithiasis November 05, 2024 4: 56pm JAUNDICE, CONCERN FOR CHOLEDOCHOLITHIASI S November 05, 2024 4:58pm EKG November 06, 2024 6: 10am JAUNDICE, CONCERN FOR CHOLEDOCHOLITHIASI S November 06, 2024 7:25am JAUNDICE, CONCERN FOR CHOLEDOCHOLITHIASI S November 06, 2024 11:40am JAUNDICE, CONCERN FOR CHOLEDOCHOLITHIASI S November 06, 2024 6:54pm JAUNDICE, CONCERN FOR CHOLEDOCHOLITHIASI S November 07, 2024 2:07pm JAUNDICE, CONCERN FOR CHOLEDOCHOLITHIASI S November 07, 2024 3:58pm JAUNDICE, CONCERN FOR CHOLEDOCHOLITHIASI S November 07, 2024 6:52pm JAUNDICE, CONCERN FOR CHOLEDOCHOLITHIASI S November 08, 2024 7:59am JAUNDICE, CONCERN FOR CHOLEDOCHOLITHIASI S November 08, 2024 6:04pm JAUNDICE, CONCERN FOR CHOLEDOCHOLITHIASI S November 09, 2024 9:04am JAUNDICE, CONCERN FOR CHOLEDOCHOLITHIASI S November 09, 2024 6:28pm JAUNDICE, CONCERN FOR CHOLEDOCHOLITHIASI S November 10, 2024 12:13pm GALLBLADDER 11-09November 23, 2024 12:59pm DISCUSS AND SCHEDULE STENT REMOVAL Doreen elder 9th, 2025 1:37pm PREOP January 03, 2025 1 0:12am Reason for Visit Admit Date Choledocholithiasis November 05, 2024 4: 58pm Jaundice November 05, 2024 4: 58pm S/P cholecystectomy November 23, 2024 12:59pm S/P cholecystectomy November 28, 2024 1:37pm S/P ERCP November 28, 2024 1:37pm S/P ERCP January 03, 2025 9 :47am Additional Source Comments (unrecognized sect ion and content) No Status Records FoundNo Status Records FoundNo Status Records FoundNo Status Records FoundNo Status Records Found INFORMATION SOURCE (unrecogn ized section and content) DATE CREATED AUTHOR 09/03/2019 [facility] DATE CREATED AUTHOR AUTHOR'S ORGANIZ ATION 09/04/2019 [facility] [place] DATE CREATED AUTHOR AUTHOR'S ORGANIZ ATION 11/13/2024 [facility] DATE CREATED AUTHOR AUTHOR'S ORGANIZ ATION 11/18/2024 [facility] DATE CREATED AUTHOR AUTHOR'S ORGANIZ ATION 01/28/2025 [facility] Care Teams (unrecognized sec tion and content) Team Status: Active Member Role/Relationship Status Dates Dr. Beryl Harrison DO Primary Care Provider Active Team Status: Active Member Role/Relationship Status Dates Dr. Beryl Harrison DO Primary Care Provider Active Start: November 05, 2024 Dr. Kate Stark MD Admit Provider Active Star t: November 05, 2024 Dr. Kate Stark MD Attending Provider Active Start: November 05, 2024 Dr. Kate Stark MD Other Provider Active Star t: November 05, 2024 Dr. Boston Williamson MD Other Provider Active Start: November 05, 2024 Team Status: Inactive Member Role/Relationship Status Dates Dr. Beryl Harrison DO Primary Care Provider Active Start: November 05, 2024 End: November 10, 2024 Dr. Kate Stark MD Admit Provider Active Star t: November 05, 2024 End: November 10, 2024 Dr. Kate Stark MD Other Provider Active Star t: November 05, 2024 End: November 10, 2024 Dr. Boston Williamson MD Other Provider Active Start: November 05, 2024 End: November 10, 2024 Dr. Micky Meadows DO Attending Provider Active Start: November 05, 2024 End: November 10, 2024 Team Status: Active Member Role/Relationship Status Dates Dr. Beryl Harrison DO Primary Care Provider Active Start: November 06, 2024 Dr. Osvaldo Hale MD Attending Provider Active S tart: November 06, 2024 Dr. Kate Stark MD Referring Provider Active Start: November 06, 2024 Team Status: Active Member Role/Relationship Status Dates Dr. Beryl Harrison DO Primary Care Provider Active Start: November 06, 2024 Dr. Kate Stark MD Admit Provider Active Star t: November 06, 2024 Dr. aKte Stark MD Other Provider Active Star t: November 06, 2024 Dr. Boston Williamson MD Attending Provider Active Start: November 06, 2024 Dr. Boston Williamson MD Other Provider Active Start: November 06, 2024 Dr. Micky Meadows DO Other Provider Active S tart: November 06, 2024 Team Status: Active Member Role/Relationship Status Dates Dr. Beryl Harrison DO Primary Care Provider Active Start: November 06, 2024 Dr. Kate Stark MD Admit Provider Active Star t: November 06, 2024 Dr. Kate Stark MD Other Provider Active Star t: November 06, 2024 Dr. Boston Williamson MD Other Provider Active Start: November 06, 2024 Dr. Micky Meadows DO Other Provider Active S tart: November 06, 2024 Dr. Tim Murray , Attending Provider Active Start: November 06, 2024 Team Status: Active Member Role/Relationship Status Dates Dr. Beryl Harrison DO Primary Care Provider Active Start: November 06, 2024 Dr. Kate Stark MD Admit Provider Active Star t: November 06, 2024 Dr. Kate Stark MD Other Provider Active Star t: November 06, 2024 Dr. Boston Williamson MD Other Provider Active Start: November 06, 2024 Dr. Micky Meadows DO Attending Provider Active Start: November 06, 2024 Dr. Micky Tereletsky , DO Other Provider Active S tart: November 06, 2024 Team Status: Active Member Role/Relationship Status Dates Dr. Beryl Harrison DO Primary Care Provider Active Start: November 07, 2024 Dr. Kate Stark MD Admit Provider Active Star t: November 07, 2024 Dr. Kate Stark MD Other Provider Active Star t: November 07, 2024 Dr. Boston Williamson MD Attending Provider Active Start: November 07, 2024 Dr. Boston Williamson MD Other Provider Active Start: November 07, 2024 Dr. Micky Meadows DO Other Provider Active S tart: November 07, 2024 Team Status: Active Member Role/Relationship Status Dates Dr. Beryl Harrison DO Primary Care Provider Active Start: November 07, 2024 Dr. Kate Stark MD Admit Provider Active Star t: November 07, 2024 Dr. Kate Stark MD Other Provider Active Star t: November 07, 2024 Dr. Boston Williamson MD Other Provider Active Start: November 07, 2024 Dr. Micky Meadows DO Other Provider Active S tart: November 07, 2024 Dr. Tim Murray , DO Attending Provider Active Start: November 07, 2024 Team Status: Active Member Role/Relationship Status Dates Dr. Beryl Harrison DO Primary Care Provider Active Start: November 07, 2024 Dr. Kate Stark MD Admit Provider Active Star t: November 07, 2024 Dr. Kate Stark MD Other Provider Active Star t: November 07, 2024 Dr. Boston Williamson MD Other Provider Active Start: November 07, 2024 Dr. Micky Meadows DO Attending Provider Active Start: November 07, 2024 Dr. Micky Meadows DO Other Provider Active S tart: November 07, 2024 Team Status: Active Member Role/Relationship Status Dates Dr. Beryl Harrison DO Primary Care Provider Active Start: November 08, 2024 Dr. Kate Stark MD Admit Provider Active Star t: November 08, 2024 Dr. Kate Stark MD Other Provider Active Star t: November 08, 2024 Dr. Boston Williamson MD Other Provider Active Start: November 08, 2024 Dr. Micky Meadows DO Other Provider Active S tart: November 08, 2024 Evette THOMAS PA-C Attending Provider Active Start: November 08, 2024 Team Status: Active Member Role/Relationship Status Dates Dr. Beryl Harrison DO Primary Care Provider Active Start: November 08, 2024 Dr. Kate Stark MD Admit Provider Active Star t: November 08, 2024 Dr. Kate Stark MD Other Provider Active Star t: November 08, 2024 Dr. Boston Williamson MD Other Provider Active Start: November 08, 2024 Dr. Micky Meadows DO Attending Provider Active Start: November 08, 2024 Dr. Micky Meadows DO Other Provider Active S tart: November 08, 2024 Team Status: Active Member Role/Relationship Status Dates Dr. Beryl Harrison DO Primary Care Provider Active Start: November 09, 2024 Dr. Kate Stark MD Admit Provider Active Star t: November 09, 2024 Dr. Kate Stark MD Other Provider Active Star t: November 09, 2024 Dr. Boston Williamson MD Attending Provider Active Start: November 09, 2024 Dr. Boston Williamson MD Other Provider Active Start: November 09, 2024 Dr. Micky Meadows DO Other Provider Active S tart: November 09, 2024 Team Status: Active Member Role/Relationship Status Dates Dr. Beryl Harrison DO Primary Care Provider Active Start: November 09, 2024 Dr. Kate Stark MD Admit Provider Active Star t: November 09, 2024 Dr. Kate Stark MD Other Provider Active Star t: November 09, 2024 Dr. Boston Williamson MD Other Provider Active Start: November 09, 2024 Dr. Micky Meadows DO Attending Provider Active Start: November 09, 2024 Dr. Micky Meadows DO Other Provider Active S tart: November 09, 2024 Team Status: Active Member Role/Relationship Status Dates Dr. Beryl Harrison DO Primary Care Provider Active Start: November 10, 2024 Dr. Kate Stark MD Admit Provider Active Star t: November 10, 2024 Dr. Kate Stark MD Other Provider Active Star t: November 10, 2024 Dr. Boston Williamson MD Other Provider Active Start: November 10, 2024 Dr. Micky Meadows DO Attending Provider Active Start: November 10, 2024 Dr. Micky Meadows DO Other Provider Active S tart: November 10, 2024 Team Status: Inactive Member Role/Relationship Status Dates Dr. Beryl Harrison DO Primary Care Provider Active Start: November 23, 2024 End: November 23, 2024 Dr. Beryl Harrison DO Referring Provider Active Start: November 23, 2024 End: November 23, 2024 Evette THOMAS PA-Jelena Attending Provider Active Start: November 23, 2024 End: November 23, 2024 Team Status: Active Member Role/Relationship Status Dates Dr. Beryl Harrison DO Primary Care Provider Active Start: November 06, 2024 Dr. Kate Stark MD Admit Provider Active Star t: November 06, 2024 Dr. Kate Stark MD Other Provider Active Star t: November 06, 2024 Dr. Boston Williamson MD Attending Provider Active Start: November 06, 2024 Dr. Boston Williamson MD Other Provider Active Start: November 06, 2024 Dr. Micky Meadows DO Referring Provider Active Start: November 06, 2024 Dr. Micky Meadows DO Other Provider Active S tart: November 06, 2024 Team Status: Inactive Member Role/Relationship Status Dates Dr. Beryl Harrison DO Primary Care Provider Active Start: November 28, 2024 End: November 28, 2024 Dr. Beryl Harrison DO Referring Provider Active Start: November 28, 2024 End: November 28, 2024 WILLIAM Cohen Attending Provider Active Start: November 28, 2024 End: November 28, 2024 Team Status: Active Member Role/Relationship Status Dates Trupti Painter NP, [employer]NAGER [employer]C Primary care physician Active Team Status: Active Member Role/Relationship Status Dates Dr. Beryl Harrison DO Primary care physician Active Start: November 05, 2024 Dr. Kate Stark MD Admitting physician Active Start: November 05, 2024 Dr. Kate Stark MD Attending physician Active Start: November 05, 2024 Dr. Kate Stark MD Nurse Practitioner Active Start: November 05, 2024 Dr. Boston Williamson MD Nurse Practitioner Active Start: November 05, 2024 Team Status: Inactive Member Role/Relationship Status Dates Dr. Beryl Harrison DO Primary care physician Active Start: November 05, 2024 End: November 10, 2024 Dr. Kate Stark MD Admitting physician Active Start: November 05, 2024 End: November 10, 2024 Dr. Kate Stark MD Nurse Practitioner Active Start: November 05, 2024 End: November 10, 2024 Dr. Boston Williamson MD Nurse Practitioner Active Start: November 05, 2024 End: November 10, 2024 Dr. Micky Meadows DO Attending physician Active Start: November 05, 2024 End: November 10, 2024 Team Status: Active Member Role/Relationship Status Dates Dr. Beryl Harrison DO Primary care physician Active Start: November 06, 2024 Dr. Osvaldo Hale MD Attending physician Active Start: November 06, 2024 Dr. Kate Stark MD Referring Provider Active Start: November 06, 2024 Team Status: Active Member Role/Relationship Status Dates Dr. Beryl Harrison DO Primary care physician Active Start: November 06, 2024 Dr. Kate Stark MD Admitting physician Active Start: November 06, 2024 Dr. Kate Stark MD Nurse Practitioner Active Start: November 06, 2024 Dr. Boston Williamson MD Attending physician Active Start: November 06, 2024 Dr. Boston Williamson MD Nurse Practitioner Active Start: November 06, 2024 Dr. Micky Meadows DO Referring Provider Active Start: November 06, 2024 Dr. Micky Meadows DO Nurse Practitioner Active Start: November 06, 2024 Team Status: Active Member Role/Relationship Status Dates Dr. Beryl Harrison DO Primary care physician Active Start: November 06, 2024 Dr. Kate Stark MD Admitting physician Active Start: November 06, 2024 Dr. Kate Stark MD Nurse Practitioner Active Start: November 06, 2024 Dr. Boston Williamson MD Nurse Practitioner Active Start: November 06, 2024 Dr. Micky Meadows DO Referring Provider Active Start: November 06, 2024 Dr. Micky Meadows DO Nurse Practitioner Active Start: November 06, 2024 Dr. Tim Murray DO Attending physician Active Start: November 06, 2024 Team Status: Active Member Role/Relationship Status Dates Dr. Beryl Harrison DO Primary care physician Active Start: November 06, 2024 Dr. Kate Stark MD Admitting physician Active Start: November 06, 2024 Dr. Kate Stark MD Nurse Practitioner Active Start: November 06, 2024 Dr. Boston Williamson MD Nurse Practitioner Active Start: November 06, 2024 Dr. Micky Meadows DO Attending physician Active Start: November 06, 2024 Dr. Micky Meadows DO Nurse Practitioner Active Start: November 06, 2024 Team Status: Active Member Role/Relationship Status Dates Dr. Beryl Harrison DO Primary care physician Active Start: November 07, 2024 Dr. Kate Stark MD Admitting physician Active Start: November 07, 2024 Dr. Kate Stark MD Nurse Practitioner Active Start: November 07, 2024 Dr. Boston Williamson MD Attending physician Active Start: November 07, 2024 Dr. Boston Williamson MD Nurse Practitioner Active Start: November 07, 2024 Dr. Micky Meadows DO Nurse Practitioner Active Start: November 07, 2024 Team Status: Active Member Role/Relationship Status Dates Dr. Beryl Harrison DO Primary care physician Active Start: November 07, 2024 Dr. Kate Stark MD Admitting physician Active Start: November 07, 2024 Dr. Kate Stark MD Nurse Practitioner Active Start: November 07, 2024 Dr. Boston Williamson MD Nurse Practitioner Active Start: November 07, 2024 Dr. Micky Meadows DO Referring Provider Active Start: November 07, 2024 Dr. Micky Meadows DO Nurse Practitioner Active Start: November 07, 2024 Dr. Tim Murray DO Attending physician Active Start: November 07, 2024 Team Status: Active Member Role/Relationship Status Dates Dr. Beryl Harrison DO Primary care physician Active Start: November 07, 2024 Dr. Kate Stark MD Admitting physician Active Start: November 07, 2024 Dr. Kate Stark MD Nurse Practitioner Active Start: November 07, 2024 Dr. Boston Williamson MD Nurse Practitioner Active Start: November 07, 2024 Dr. Micky Meadows DO Attending physician Active Start: November 07, 2024 Dr. Micky Meadows DO Nurse Practitioner Active Start: November 07, 2024 Team Status: Active Member Role/Relationship Status Dates Dr. Beryl Harrison DO Primary care physician Active Start: November 08, 2024 Dr. Kate Stark MD Admitting physician Active Start: November 08, 2024 Dr. Kate Stark MD Nurse Practitioner Active Start: November 08, 2024 Dr. Boston Williamson MD Nurse Practitioner Active Start: November 08, 2024 Dr. Micky Meadows DO Nurse Practitioner Active Start: November 08, 2024 Evette THOMAS PA-C Attending physician Active Start: November 08, 2024 Team Status: Active Member Role/Relationship Status Dates Dr. Beryl Harrison DO Primary care physician Active Start: November 08, 2024 Dr. Kate Stark MD Admitting physician Active Start: November 08, 2024 Dr. Kate Stark MD Nurse Practitioner Active Start: November 08, 2024 Dr. Boston Williamson MD Nurse Practitioner Active Start: November 08, 2024 Dr. Micky Meadows DO Attending physician Active Start: November 08, 2024 Dr. Micky Meadows DO Nurse Practitioner Active Start: November 08, 2024 Team Status: Active Member Role/Relationship Status Dates Dr. Beryl Harrison DO Primary care physician Active Start: November 09, 2024 Dr. Kate Stark MD Admitting physician Active Start: November 09, 2024 Dr. Kate Stark MD Nurse Practitioner Active Start: November 09, 2024 Dr. Boston Williamson MD Attending physician Active Start: November 09, 2024 Dr. Boston Williamson MD Nurse Practitioner Active Start: November 09, 2024 Dr. Micky Meadows DO Nurse Practitioner Active Start: November 09, 2024 Team Status: Active Member Role/Relationship Status Dates Dr. Beryl Harrison DO Primary care physician Active Start: November 09, 2024 Dr. Kate Stark MD Admitting physician Active Start: November 09, 2024 Dr. aKte Stark MD Nurse Practitioner Active Start: November 09, 2024 Dr. Boston Williamson MD Nurse Practitioner Active Start: November 09, 2024 Dr. Micky Meadows DO Attending physician Active Start: November 09, 2024 Dr. Micky Meadows DO Nurse Practitioner Active Start: November 09, 2024 Team Status: Active Member Role/Relationship Status Dates Dr. Beryl Harrison DO Primary care physician Active Start: November 10, 2024 Dr. Kate Stark MD Admitting physician Active Start: November 10, 2024 Dr. Kate Stark MD Nurse Practitioner Active Start: November 10, 2024 Dr. Boston Williamson MD Nurse Practitioner Active Start: November 10, 2024 Dr. Micky Meadows DO Attending physician Active Start: November 10, 2024 Dr. Micyk Meadows DO Nurse Practitioner Active Start: November 10, 2024 Team Status: Inactive Member Role/Relationship Status Dates Dr. Beryl Harrison DO Primary care physician Active Start: November 23, 2024 End: November 23, 2024 Dr. Beryl Harrison DO Referring Provider Active Start: November 23, 2024 End: November 23, 2024 Evette THOMAS PA-C Attending physician Active Start: November 23, 2024 End: November 23, 2024 Team Status: Inactive Member Role/Relationship Status Dates Dr. Beryl Harrison DO Primary care physician Active Start: November 28, 2024 End: November 28, 2024 Dr. Beryl Harrison DO Referring Provider Active Start: November 28, 2024 End: November 28, 2024 WILLIAM Cohen Attending physician Active Start: November 28, 2024 End: November 28, 2024 Team Status: Inactive Member Role/Relationship Status Dates Dr. Tim Murray DO Attending physician Active Start: January 03, 2025 End: January 03, 2025 Trupti Painter MANAGER TRAFFIC, MANAGER [employer] Primary care physician Active Start: January 03, 2025 End: January 03, 2025 Trupti Painter NP, MANAGER [employer]C Referring Provider Active Start: January 03, 2025 End: January 03, 2025 Team Status: Active Member Role/Relationship Status Dates Trupti Painter NP, MANAGER [employer] Primary care physician Active Start: January 03, 2025 Dr. Osvaldo Hale MD Attending physician Active Start: January 03, 2025 Dr. Tim Murray DO Referring Provider Active Start: January 03, 2025 Trupti Painter NP, MANAGER [employer]C Referring Provider Active Start: January 03, 2025 FOR RECORDS PERTAINING TO PATIENTS WHO ARE [...] BE BASED ON THE PRIMARY CLINICAL RECORDS. [facility]. provides no warranty or guarantee of the accuracy or completeness of information in this document.
[2025-03-15 12:07] LABS: Mucous, Urine 0 SEEN /hpf (<or=2+); Red Blood Cells-Urine 0 SEEN /hpf (0-5); Squamous Epithelial Cells - UA 0 SEEN /hpf (0-5)
[2025-03-15 12:10] LABS: Color, Urine Yellow (Yellow); Glucose, Dipstick Normal (Normal); Ketone-Dipstick Negative (Negative); Leukocyte Esterase-Dipstick Negative /ul (Negative); Nitrite-Dipstick Negative (Negative); Occult Blood-Urine Negative /ul (Negative); Protein-Dipstick 15 mg/dl (Negative); Specific Gravity, Urine 1.010 (1.002-1.030); Urine Bilirubin Dipstick Negative (Negative)
[2025-03-15] MEDS: HYDROmorphone 0.5 MG/0.5 ML SYRINGE IV (13:01)
--- NOTE | 2025-03-15 13:33 | PCM.HP.STD ---
HPI - General General Date of Service: 03/15/25 Chief Complaint: Abdominal pain HPI Narrative DOTTIE CHILD, is a 59 M who presents with abdominal pain. Is a 5-year-old male with a history of gallstone pancreatitis back in October. Patient underwent an ERCP and a cholecystectomy at that time. Patient been doing well up until yesterday where he started having generalized abdominal pain. Just got worse. Describes mostly abdominal pain above his umbilicus. Presented emergency room where his lipase was normal but his CAT scan showed acute pancreatitis and posterior and inferior to the pancreatic body fluid attenuated lesion measuring up to 2.6 cm this previously seen. Could possibly represent a necrotic lymph node. Patient received morphine, hydromorphone and Zofran. Currently feeling better at this time. [ ] [facility] Medical History Wears glasses DVT (deep venous thrombosis) Gastric reflux Chewing tobacco dependence Former smoker Sleep apnea Shortness of breath on exertion Depression Anxiety HTN (hypertension) Appendicitis Home Medications ?Medication ?Instructions ?Recorded ?Last Taken ?Type cetirizine 10 mg tablet (Allergy 10 mg PO DAILY allergies 11/05/24 01/02/25 History Relief (cetirizine)) losartan 50 mg tablet 50 mg PO DAILY blood pressure 11/05/24 01/03/25 History pantoprazole 40 mg tablet,delayed 40 mg PO BID gerd 11/05/24 01/03/25 History release sertraline 100 mg tablet 100 mg PO DAILY anxiety 11/05/24 01/02/25 History aspirin 81 mg tablet 81 mg PO QDAY 11/28/24 12/24/24 History Allergy/AdvReac Type Severity Reaction Status Date / Time azithromycin (From Zithromax) Allergy Severe Rash Verified 03/15/25 11:00 adhesive Allergy Intermediate Rash Verified 03/15/25 11:00 Surgical History Hx of appendectomy History of ERCP Hx of tonsillectomy S/P cholecystectomy H/O sinus surgery H/O hernia repair Social History (Updated 03/15/25 @ 13:[address] Tony Holden DO) Smoking Status: Current every day smoker tobacco type: smokeless tobacco alcohol intake: former substance use type: does not use what type of physical activity do you participate in: none ROS ROS Narrative Subjective chills. Sore throat. All review of systems were negative except as mentioned above in the history of present illness and the other review of systems. Patient's Goals Of Care . What would you like to achieve or improve as a result of your hospital stay?: Find out cause of abdominal pain Vital Signs Vital Signs Vital Signs: 03/15/25 10:58 Temperature 36.6 C Temperature Source Temporal Pulse Rate 81 Respiratory Rate 16 Blood Pressure 150/94 H Blood Pressure Mean 112 Pulse Ox 97 Oxygen Delivery Method Room Air Weight Weight: 98.5 kg Body Mass Index (BMI) 30.2 Physical Exam Const alert and no apparent distress HEENT normocephalic, head/scalp atraumatic, hearing grossly normal bilaterally and moist oral mucous membranes Resp normal respiratory effort, no retractions, no use of accessory muscles and clear to auscultation bilaterally Cardio regular rate, regular rhythm, S1 normal heart sound and S2 normal heart sound GI GI Narrative: epigastric tenderness. Extremity normal to inspection and full ROM Neuro Sensorium / Orientation: awake and alert Psych affect normal Results Lab / Micro Data Attestation: I reviewed the patient's lab results. 03/15/25 11:20 03/15/25 11:20 Labs: Laboratory Results - last 24 hr 03/15/25 11:20: WBC 7.9, RBC 5.43, Hgb 15.8, Hct 45.9, MCV 84.5, MCH 29.1, MCHC 34.4, RDW Std Deviation 41.1, RDW Coeff of Selene 13.2, Plt Count 246, MPV 9.3, Immature Gran % (Auto) 0.300, Neut % (Auto) 70.5 H, Lymph % (Auto) 18.8 L, Sibley % (Auto) 8.1, Eos % (Auto) 1.4, Baso % (Auto) 0.9, Absolute Neuts (auto) 5.6, Absolute Lymphs (auto) 1.49, Nucleated RBC % 0, Sodium 138, Potassium 4.0, Chloride 103, Carbon Dioxide 24.2, Anion Gap 11, BUN 15, Creatinine 1.00, Estim Creat Clear Calc 93.98, Est GFR (MDRD) Non-Af 86, BUN/Creatinine Ratio 15.0, Glucose 130 H, Lactic Acid 1.6, Calcium 9.4, Total Bilirubin 0.70, AST 23, ALT 25, Alkaline Phosphatase 105, Total Protein 7.0, Albumin 4.3, Globulin 2.7, Albumin/Globulin Ratio 1.6, Lipase 26 Imaging Radiology Impression Abdomen/Pelvis CT 03/15/25 11:44 IMPRESSION: Acute pancreatitis. Posterior and inferior to the pancreatic body, there is a fluid attenuated lesion measuring up to 2.6 cm previously this was seen of the soft tissue nodule/lymph node measuring up to 1.7 cm. This could represent a necrotic lymph node. Further evaluation with MRI of the abdomen with contrast is recommended. Dilated intrahepatic and extrahepatic biliary ducts. Bilateral fat containing inguinal hernia, worse on the left. Fat containing umbilical hernia is noted. Reading Location: [facility] Assessment & Plan Assessment/Plan (1) Acute pancreatitis: PLAN: Unclear etiology at this time. There was noted acute pancreatitis on the CAT scan the lipase is only 26. Treatment at this time will include IV fluids, pain control, antiemetics. Will check an MRI of the abdomen with and without contrast. There was an area of concern for a potential necrotic lymph node and was recommended by radiology due to due to MRI with contrast. Based on the results of the MRI it may need to involve gastroenterology. PLAN: Plan Hypertension: Continue losartan Depression/anxiety continue with sertraline VTE prophylaxis with enoxaparin CODE STATUS: Addressed with the patient. Patient wishes to be full code Charges/Coding Visit Charges Inpatient E&M: 07825 Init Hosp L2
[2025-03-15 13:39] VITALS: BP 161/90; PULSE 64; RESP 15; TEMP 36.6; O2SAT 96
--- OUTSIDE RECORDS SUMMARY | 2025-03-15 14:11 | XMS RPT_ITS | CCD ---
Author Organization [facility] [employer]iniSyva Care Team Providers Care Law Firm Partner Name Role Phone BERYL HARRISON DO Admitting Unavailable BERYL HARRISON DO Attending Unavailable BERYL HARRISON DO Primary Care Unavailable Marco EMERSON, Dr. Cordoba Primary Care Provider Tatiana AGUSTIN, Dr. oLve Admit Provider Tatiana AGUSTIN, Dr. Love Attending Provider Tatiana AGUSTIN, Dr. Love Other Provider Teri AGUSTIN, Dr. Mead Other Provider Dr. Micky Meadows DO Attending Provider Geoffrey AGUSTIN, Dr. Riley Attending Provider Tatiana AGUSTIN, Dr. Love Referring Provider Teri AGUSTIN, Dr. Mead Attending Provider Dori EMERSON, Dr. Weeks Other Provider Dr. [...] Unavailable Marco EMERSON, Dr. Cordoba Referring Provider [phone] Dori EMERSON, Dr. Weeks Referring Provider Eleanor Garcia Attending Provider Marco EMERSON, Dr. Cordoba Primary Care Physician Tatiana AGUSTIN, Dr. Love Admitting Physician Tatiana AGUSTIN, Dr. Love Attending Physician Tatiana AGUSTIN, Dr. Love Nurse Practitioner Teri AGUSTIN, Dr. Mead Nurse Practitioner [phone] Dori EMERSON, Dr. Weeks Attending Physician Geoffrey AGUSTIN, Dr. Riley Attending Physician Teri AGUSTIN, Dr. Mead Attending Physician Dori EMERSON, Dr. Weeks Nurse Practitioner Dr. Tim Murray DO Attending Physician Evette Ochoa PA-C Attending Physician Eleanor Garcia Attending Physician Car WARP DYEING VAT TENDER-CTrupti Primary Care Physician Car RANGEL-CTrupti Referring Provider [...] Stark Referring Unavailable Evette Marie Attending Unavailable Car WARP DYEING VAT TENDER, Trupti Primary Care Unavailable Car WARP DYEING VAT TENDER, Trupti Referring Unavailable FriendTim Consulting Unavailable Friend, Tim Attending Unavailable Marco, Beryl Referring Unavailable Frakowski, Beryl Primary Care Unavailable Evette Marie Attending Unavailable Anjaliwsbrian, Beryl Primary Care Unavailable Anjaliwsbrian, Beryl Referring Unavailable Eleanor Hughes Attending Unavailable Boston Williamson Consulting Unavailable Anjaliwski, Beryl Primary Care Unavailable Kate Stark Attending Unavailable Kate Stark Admitting Unavailable Kate Stark Consulting Unavailable Car WARP DYEING VAT TENDER, Trupti Primary Care Unavailable Car WARP DYEING VAT TENDER, Trupti Referring Unavailable Friend, Tim Attending Unavailable Allergies Allergy Classification Reported Allergen(s) Allergy Type Date of Onset Reaction(s) Facility (4 sources) Azithromycin Drug Allergy 5 [facility] (4 sources) Adhesive agent; Translations: [ADHESIVE] Propensity to adverse reactions (disorder) 5 [facility] Repository Comment on above: Steri-strips (1 source) Azithromycin Drug Allergy [address] [place] [address] Repository Medications Current Medications Medication Drug Class(es) [...] Onset: Chronic Other aftercare (1 source) Other 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 Cardiovascular Services [address] [place] [address] 12 Lead EKG 01/03/25 1012 MR#: [id number] Acct: [id number] Name: MICHAEL MEJIA Rep #: [id number] : 1965 59 From: Osvaldo Hale MD Attending Dr: Tim Murray DO Status: DEP RI C Ordering Dr: Manas Cantrell MD Date: [...] found Confirmed by GEOFFREY AGUSTIN, OSVALDO ([id number]), editorial director EVETTE MORRIS ([id number]) on 01/04/2025 10:08:22 AM Referred By: Trupti Painter Confirmed By: OSVALDO HALE MD 01/04/25 1008 Date Osvaldo Hale MD CC: WARP DYEING VAT TENDER-C Trupti Painter; Dr. Manas Cantrell MD; Tim Murray DO Signed Normal [facility] ERCP Biliary/Pancreason 12-20 ERCP Biliary/Pancreas [facility] Imaging Services [address] [place], [place] [address] ERCP Biliary/Pancreas MR#: [id number] Acct: [id number] Name: MICHAEL MEJIA Rep #: [id number] : 1965 M 59 From: Edwin tucker MD PCP: SANDRINE Walker Status: [facility] Study: ERCP Biliary/Pancreas Date of Exam: 01/03/25 Exam# [id number] Ordering Dr: Tim Murray DO PROCEDURE: ERCP [...] Removal of the biliary stent. Reading Location: [place] [address] CC: SANDRINE Painter; Tim Murray DO Salt Cutter: Signed Normal [facility] ERCP Reporton 01-03-2025 ERCP Report [facility] Medical Records Department [address] [place] [address] ERCP Report MR#: [id number] Acct: [id number] Name: MICHAEL MEJIA Rep #: [id number] : 1965 59 From: Tim Murray DO PCP: SANDRINE Walker Status:REG [facility] Patient Name: Michael Mejia Procedure Date: 01/03/2025 [...] hours 9 minutes 11 seconds Findings: The allocation analyst film was normal. The esophagus was successfully [...] biliary tree. Procedure Code(s): --- Professional --- 04010, Endoscopic retrograde cholangiopancreatograp hy (ERCP); with removal of foreign body(s) or stent(s) from biliary/pancreatic duct(s) 48801, Endoscopic retrograde cholangiopancreatograp hy (ERCP); with removal (more content not included)... Normal [facility] Electrocardiogram reportOrde red By: Osvaldo Hale on 01-03-[address] [facility] Cardiovascular Services [address] [place] [address] 12 Lead EKG 01/03/25 1012 MR#: [id number] Acct: [id number] Name: MICHAEL MEJIA Rep #:[id number] : 1965 59 From: Osvaldo Hale [...] found Confirmed by OSVALDO HALE MD ([id number]), editorial director EVETTE MORRIS ([id number]) on 01/04/2025 10:08:22 AM Referred By: Trupti Painter Confirmed By: OSVALDO HALE MD 01/04/25 1008 Date _ Osvaldo Hale MD CC: SANDRINE Painter; Dr. Manas Cantrell MD; Tim Murray DO ~ Signed [facility] Work Phone: MR/OP.ROBYAToamina 01-03-2025 MR/OP.[facility] Medical Records Department [address] [place] [address] Provation Physician Letter MR#: [id number] Acct: [id number] Name: MICHAEL MEJIA Rep #: [id number] : 1965 59 From: Tim Murray DO PCP: SANDRINE Walker Status:REG [facility] 01/03/2025 Sandrine Walker Re : ERCP procedure [...] DO Date Dictated: 01/03/25 1204 Date Transcribed: Salt Cutter: PHILLIP Signed [facility] MR/POSTOP.ANEon 01-03-2025 MR/POSTOP.[facility] Medical Records Department [address] [place] [address] Anesthesia Postop Eval I 01/03/25 1243 MR#: [id number] Acct: [id number] Name: MICHAEL MEJIA Rep #: [id number] : 1965 59 From: Hank Reese PCP: SANDRINE Walker Status:[facility] Y Race: C Location: [place] [address] Anesthesia: Postop Eval I Current Vital Signs [...] Hank Juarez Signature: Date CC: Signed Normal [facility] MR/PNPGJVZC6oa 01-03-2025 /POST[address] Medical Records Department [address] [place] [address] Anesthesia Postop Eval II 01/03/25 1355 MR#: [id number] Acct: [id number] Name: MICHAEL MEJIA Rep #: [id number] : 1965 59 From: Manas Cantrell MD PCP: SANDRINE Walker Status:[facility] Y Race: C Location: [place] Anesthesia [...] No 01/03/25 1355 Date Manas Cantrell [facility] Signature: Date CC: Signed Normal [facility] Special Stain Group IIon Special Stain Group II ----- ---- Patient Age/Sex Location Account Attending Physician ---- MICHAEL MEJIA 59/M EN [id number] Tim Murray DO ---- Specimen: [id number] Received: 01/03/25 Status: MALACHI Emilie Num: [id number] Spec Type: Fluid Subm Dr: Tim Murray [...] and cell block preparation. Mr 01/03/2025 CPT: 76442,60704 Signed (signature on file) Dr. Jennifer Szymanski MD 01/11/25 1459 ---- Normal [facility] Comment on above: Performed By: #### P SSII #### [facility] Laboratory [address] [place], [address] MR/PAT.JOANNon 01-01-2025 MR/PAT.JOANN [facility] Medical Records Department [address] [place] [address] PAT - Anesthesia 01/01/25 1100 MR#: [id number] Acct: [id number] Name: MEJIAMICHAEL Sr. Rep #: [id number] : 1965 59 From: Santosh Seymour MD PCP: Dr. 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 History - 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 technician Hx Hospitalization Yes 01/01/25 10:56 Any [...] take am of surgery PONV PONV - 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 technician: PONV - 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 technician Female No 01/01/25 10:56 HX of Motion Sickness No 01/01/25 10:56 HX of N/V After Surgery No 01/01/25 10:56 Non-Smoker No 01/01/25 10:56 Duration of Surgery greater No 01/01/25 10:56 than 60 minutes Number of Risk Factors PONV Score Height Weight Height Weight: Anesthesia: Height Weight Height 5 ft 11 in 11/27/24 11:57 Respiratory Assessment Respiratory Assessment - 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 technician: Respiratory Tract Infection Hx - 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 technician Hx Respiratory Tract Infection No 01/01/25 10:56 STOP Sleep Apnea STOP Sleep Apnea - 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 technician: STOP Sleep Apnea - 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 technician Hx Hypertension Yes: CONTROLLED ON MED [...] Tobacco Use History Tobacco Use History - 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 technician: Tobacco Use History - 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 technician Tobacco Use Smoking Status Current every day smoker 01/01/25 10:56 Hx Tobacco Use Yes 01/01/25 10:56 Years Smoking Packs Smoked per Day Smoking Cessation Date was within the last 15 years Hx Smoking Cessation Date Hx Smoking Cessation Counseling Hematologic Medial History Hematologic Hx - 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 technician: 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 Normal [facility] Gastroenterology Visit Repor ton 11-28-2024 Gastroenterology Visit Report [facility] [address] [place] [address] OFFICE VISIT Date of Service: 11/28/24 MR#: [id number] Acct: [id number] Name: MEJIAMICHAEL A Sr. Rep #: [id number] : 1965 Provider: WILLIAM Cohen Age/Sex: 58/M Location: [facility] Status: Signed Intake Vital Signs 11/09/24 13:46 [...] tablet 81 mg PO QDAY 11/28/24 11/28/24 Ma story Nurse's Note: Pt was scheduled for ERCP stent removal on 01.03.25 at the end of their appt today. Reviewed prep instructions and which medications to hold prior to procedure with pt in office. A paper copy of ERCP prep instructions were given to pt. Pt denies any questions or concerns at this time. Cardiac Clearance faxed to [facility] F:[phone] [facility] Medical History Depression Anxiety HTN (hypertension) [...] presents to the office today for follow-up. [facility] admission 11.05.24-11.12.24 with suspected choledocholithiasis transferred from [...] He i (more content not included)... Normal [facility] Surgery Visit Reporton 11-23 Surgery Visit Report [facility] [address] [place] [address] OFFICE VISIT Date of Service: 11/23/24 MR#: [id number] Acct: [id number] Name: MEJIAMICHAEL Sr. Rep #: [id number] : 1965 Provider: SYEDA hollins Age/Sex: 58/M Location: [facility] Status: Signed Intake Vital Signs 11/09/24 13:46 [...] Global Post Op Diagnoses S/P cholecystectomy Z90.49 [facility] Medical History (Updated 11/18/24 @ 00:01 [...] (if applicable) CC: Dr. Beryl Harrison, Normal [facility] Discharge Instructionon 10-21 Discharge Instruction [facility] Medical Records Department [address] [place] [address] Instructions for Home/Discharge Instructions 11/10/24 1207 MR#: [id number] Acct: [id number] Name: MEJIAMICHAEL Sr. Rep #: [id number] : 1965 58 From: Micky Meadows DO [...] DO; Dr. Kate Stark MD Signed Normal [facility] Discharge Instruction [facility] Medical Records Department [address] [place] [address] Instructions for Home/Discharge Instructions 11/10/24 1154 MR#: [id number] Acct: [id number] Name: MICHAEL MEJIA Sr. Rep #: [id number] : 1965 58 From: Boston Williamson MD [...] to schedule 2 week follow up appointment. [phone] Test Results: Test results from this visit [...] can be placed): Home, Self Care 11/10/24 5397 Boston Williamson MD CC: Dr. Boston Williamson MD; Dr. Beryl Harrison DO; Dr. Kate Stark MD Signed Normal [facility] Surgical pathology reportOrd ered By: Taylor Jolley on 11-10-2024 Surgical pathology study [facility] Absolute lymphocyte countOrd ered By: Evette Ochoa on 11-09-2024 Lymphocytes Auto (Unsp spec) [#/Vol] 1.86 10*3/uL 0.83-4.51 [facility] Absolute neutrophil countOrd ered By: Evette Ochoa on 11-09-2024 Neutrophils (Bld) [#/Vol] 5.3 10*3/uL 2.0-7.7 [facility] Anion gap in Serum or Plasma Ordered By: Evette Ochoa on 11-09-2024 Anion gap [Moles/Vol] 11 mmol/L 5-15 [facility] Automated lymphocyte count a s percentage of total leukocytesOrdered By: Evette Ochoa on 11-09-2024 Lymphocytes/100 WBC Auto (Unsp spec) 22.3 % 19- [facility] BUN/creatinine ratioOrdered By: Evetteelayne Ochoa on 11-09-2024 Urea nitrogen/Creatinine [Mass ratio] 12.6 mg/mg 10-20 [facility] Basophil percentageOrdered B y: Evette Ochoa on 11-09-2024 Basophils/100 WBC (Bld) 1.6 % High 0-1 [facility] Bilirubin, totalOrdered By: Evette Ochoa on 11-09-2024 Bilirubin [Mass/Vol] 2.93 mg/dL High 0.00-1.30 [facility] CBC W/Diff, Automatedon 10-21 Absolute Lymph 1.86 X10 3/uL Normal 0.83-4.51 [facility] Comment on above: Performed By: #### L 500.4050, L100.0100 ####[facility] [address] [place], [address] Absolute Neut 5.3 X10 3/uL Normal 2.0-7.7 [facility] Comment on above: Performed By: #### L 500.4050, L100.0100 ####[facility] [address] [place], [address] Basophils/100 WBC (Bld) 1.6 % High 0-1 [facility] Comment on above: Performed By: #### L 500.4050, L100.0100 ####[facility] [address] [place], [address] Eosinophils/100 WBC (Bld) 4.3 % Normal 0-5 [facility] Comment on above: Performed By: #### L 500.4050, L100.0100 ####[facility] [address] [place], [address] Erythrocyte distribution width (RBC) [Ratio] 14.4 % Normal 11.6-14.6 [facility] Comment on above: Performed By: #### L 500.4050, L100.0100 ####[facility] [address] [place], [address] Hematocrit (Bld) [Volume fraction] 39.1 % Low 40-54 [facility] Comment on above: Performed By: #### L 500.4050, L100.0100 ####[facility] [address] [place], [address] Hemoglobin (Bld) [Mass/Vol] 13.0 g/dL Normal 13.0-16.5 [facility] Comment on above: Performed By: #### L 500.4050, L100.0100 ####[facility] [address] [place], [address] IG% 0.500 Normal 0.0-0.9 [facility] Comment on above: Result Comment: IG% - Immature Granulocytes (promyelocytes, myelocytes and metamyelocytes) > 1% indicates that a LEFT SHIFT is Present. Performed By: #### L 500.4050, L100.0100 ####[facility] [address] [place], [address] Lymphocytes/100 WBC (Bld) 22.3 % Normal 19-41 [facility] Comment on above: Performed By: #### L 500.4050, L100.0100 ####[facility] [address] [place], [address] MCH (RBC) [Entitic mass] 29.0 pg Normal 27.0-32.0 [facility] Comment on above: Performed By: #### L 500.4050, L100.0100 ####[facility] [address] [place], [address] MCHC (RBC) [Mass/Vol] 33.2 g/dL Normal 32-36 [facility] Comment on above: Performed By: #### L 500.4050, L100.0100 ####[facility] [address] [place], [address] MCV (RBC) [Entitic vol] 87.1 fL Normal 80-94 [facility] Comment on above: Performed By: #### L 500.4050, L100.0100 ####[facility] [address] [place], [address] Monocytes/100 WBC (Bld) 7.8 % Normal 0-10 [facility] Comment on above: Performed By: #### L 500.4050, L100.0100 ####[facility] [address] [place], [address] Neutrophils/100 WBC (Bld) 63.5 % Normal 47-70 [facility] Comment on above: Performed By: #### L 500.4050, L100.0100 ####[facility] [address] [place], [address] Nucleated RBC (Bld) [#/Vol] 0 10*3/uL Normal 0-5 [facility] Comment on above: Performed By: #### L 500.4050, L100.0100 ####[facility] [address] [place], [address] Platelet mean volume (Bld) [Entitic vol] 8.7 fL Normal 6.2-12.0 [facility] Comment on above: Performed By: #### L 500.4050, L100.0100 ####[facility] [address] [place], [address] Platelets (Bld) [#/Vol] 356 10*3/uL Normal 150-450 [facility] Comment on above: Performed By: #### L 500.4050, L100.0100 ####[facility] [address] [place], [address] RBC (Bld) [#/Vol] 4.49 10*6/uL Low 4.6-6.2 [facility] Comment on above: Performed By: #### L 500.4050, L100.0100 ####[facility] [address] [place], [address] RDW SD 45.8 fl High 35.1-43.9 [facility] Comment on above: Performed By: #### L 500.4050, L100.0100 ####[facility] [address] [place], [address] WBC (Bld) [#/Vol] 8.4 10*3/uL Normal 4.4-11.0 [facility] Comment on above: Performed By: #### L 500.4050, L100.0100 ####[facility] [address] [place], [address] Carbon dioxide, total [Moles /volume] in Central venous bloodOrdered By: Evette Ochoa on 11-09-2024 CO2 [Moles/Vol] 25.6 mmol/L 21.0-32.0 [facility] Chloride assayOrdered By: Dany Ochoa on 11-09-2024 Chloride [Moles/Vol] 99 mmol/L 98-108 [facility] Cholangiogram/ O R,Initialon 11-09-2024 Cholangiogram/ O R,Initial [facility] Imaging Services [address] [place], [place] [address] Cholangiogram/ O R,Initial MR#: [id number] Acct: [id number] Name: MICHAEL MEJIA Sr. Rep #: [id number] : 1965 M 58 From: Benja Painting PCP: Dr. Beryl Harrison DO Status: ADM IN Study: Cholangiogram/ O R,Initial Date of Exam: 11/09 Exam# [id number] Ordering Dr: Boston Williamson PROCEDURE: CHOLANGIOGRAM/ O R,INITIAL; O.R. FLUORO FOR C-ARM 11/09/2024 REASON FOR EXAM: CHOLECYSTECTOMY WITH IOC TECHNIQUE: CHOLANGIOGRAM/ O R,INITIAL; O.R. FLUORO FOR C-ARM Fluoroscopy time: 23.9 seconds. Dose: 16.72 mGy. COMPARISON: CT examination of 11/06/2024. RAD/Cholangiogram/ O R,Initial IMPRESSION: Intraoperative fluoroscopy was performed for ERCP. Numerous fluoroscopic images were also obtained. Also, cholelithiasis is seen. Reading Location: [place] [address] CC: Dr. Boston Williamson MD; Dr. Beryl Harrison DO Salt Cutter: Signed Normal [facility] Comprehensive Metabolic Prof ilon 11-09-2024 Albumin [Mass/Vol] 3.4 g/dL Low 3.5-5.0 [facility] Comment on above: Performed By: #### L 500.4050, L100.0100 ####[facility] [address] [place], [place], [address] Albumin/Globulin [Mass ratio] 1.2 {ratio} Normal 0.9-2.4 [facility] Comment on above: Performed By: #### L 500.4050, L100.0100 ####[facility] [address] [place], [address] ALK PHOS 323 U/L High 40-129 [facility] Comment on above: Performed By: #### L 500.4050, L100.0100 ####[facility] [address] [place], [address] ALT [Catalytic activity/Vol] 130 U/L High <=46 [facility] Comment on above: Performed By: #### L 500.4050, L100.0100 ####[facility] [address] [place], [address] AST [Catalytic activity/Vol] 67 U/L High <=37 [facility] Comment on above: Result Comment: Hemo lysis present, Results??could be affected. ?? Performed By: #### L 500.4050, L100.0100 ####[facility] [address] [place], [address] Bilirubin [Mass/Vol] 2.93 mg/dL High 0.00-1.30 [facility] Comment on above: Performed By: #### L 500.4050, L100.0100 ####[facility] [address] [place], [address] BUN/CRE 12.6 RATIO Normal 10-20 [facility] Comment on above: Performed By: #### L 500.4050, L100.0100 ####[facility] [address] [place], [address] Calcium [Mass/Vol] 8.7 mg/dL Normal 7.6-11.0 [facility] Comment on above: Performed By: #### L 500.4050, L100.0100 ####[facility] [address] [place], [address] Chloride [Moles/Vol] 99 mmol/L Normal 98-108 [facility] Comment on above: Performed By: #### L 500.4050, L100.0100 ####[facility] [address] [place], [address] CO2 [Moles/Vol] 25.6 mmol/L Normal 21.0-32.0 [facility] Comment on above: Performed By: #### L 500.4050, L100.0100 ####[facility] [address] [place], [address] Creatinine [Mass/Vol] 1.05 mg/dL Normal 0.70-1.20 [facility] Comment on above: Performed By: #### L 500.4050, L100.0100 ####[facility] [address] [place], [address] ECRCL 90.19 ml/min Normal 50-250 [facility] Comment on above: Performed By: #### L 500.4050, L100.0100 ####[facility] [address] [place], [address] GAP 11 Normal 5-15 [facility] Comment on above: Performed By: #### L 500.4050, L100.0100 ####[facility] [address] [place], [address] GFR/1.73 sq M.predicted among non-blacks MDRD (S/P/Bld) [Vol rate/Area] 82 mL/min/{1.73_m2} Normal >60 [facility] Comment on above: Result Comment: mL/m in/1.73m2 CKD-EPI Creatinine Equation (2020) Performed By: #### L 500.4050, L100.0100 ####[facility] [address] [place], [address] Globulin (S) [Mass/Vol] 2.9 g/dL Normal 2.2-4.2 [facility] Comment on above: Performed By: #### L 500.4050, L100.0100 ####[facility] [address] [place], [address] Glucose [Mass/Vol] 92 mg/dL Normal 70-99 [facility] Comment on above: Performed By: #### L 500.4050, L100.0100 ####[facility] [address] [place], [address] Potassium [Moles/Vol] 4.2 mmol/L Normal 3.3-5.1 [facility] Comment on above: Result Comment: Hemo lysis present, Results??could be affected. ?? Performed By: #### L 500.4050, L100.0100 ####[facility] [address] [place], [address] Sodium [Moles/Vol] 136 mmol/L Normal 133-145 [facility] Comment on above: Performed By: #### L 500.4050, L100.0100 ####[facility] [address] [place], [address] T PROT 6.3 g/dL Normal 5.9-8.4 [facility] Comment on above: Performed By: #### L 500.4050, L100.0100 ####[facility] [address] [place], [address] Urea nitrogen [Mass/Vol] 13 mg/dL Normal 4-19 [facility] Comment on above: Performed By: #### L 500.4050, L100.0100 ####[facility] [address] [place], [address] Eosinophil percentageOrdered By: Evette Ochoa on 11-09-2024 Eosinophils/100 WBC (Bld) 4.3 % 0-5 [facility] Erythrocyte distribution wid th ratioOrdered By: Evette Ochoa on 11-09-2024 Erythrocyte distribution width (RBC) [Ratio] 14.4 % 11.6-14.6 [facility] Erythrocyte distribution wid th standard deviationOrdered By: Evette Ochoa on 11-09-2024 Erythrocyte distribution width (RBC) [Ratio] 45.8 fl High 35.1-43.9 [facility] Glomerular filtration rate ( GFR) estimation/1.73 sq m using serum, plasma, or whole bOrdered By: Evette Ochoa on 11-09-2024 GFR/1.73 sq M.predicted among non-blacks MDRD (S/P/Bld) [Vol rate/Area] 82 mL/min/{1.73_m2} >60 [facility] Comment on above: mL/min/1.73m2 CKD-EP I Creatinine Equation (2020) Hematocrit Auto (Bld) [Volum e fraction]Ordered By: Evette Ochoa on 11-09-2024 Hematocrit (Bld) [Volume fraction] 39.1 % Low 40-54 [facility] Hemoglobin measurementOrdere d By: Evette Ochoa on 11-09-2024 Hemoglobin (Bld) [Mass/Vol] 13.0 g/dL 13.0-16.5 [facility] Immature granulocytes/100 WB C Auto (Bld)Ordered By: Evette Ochoa on 11-09-2024 Immature granulocytes/100 WBC (Bld) 0.500 % 0.0-0.9 [facility] Comment on above: IG% - Immature Granu locytes (promyelocytes, myelocytes and metamyelocytes) > 1% indicates that a LEFT SHIFT is Present. Laboratory - Chemistry and C hemistry - challengeOrdered By: Evette Ochoa on 11-09-2024 AST [Catalytic activity/Vol] 67 U/L High <38 [facility] Comment on above: Hemolysis present, R esults could be affected. MCV (mean corpuscular volume ) determinationOrdered By: Evette Ochoa on 11-09-2024 MCV (RBC) [Entitic vol] 87.1 fL 80-94 [facility] MR/POSTOP.ANEon 11-09-2024 MR/POSTOP.ANE [facility] Medical Records Department [address] [place] [address] Anesthesia Postop Eval I 11/09/2423 MR#: [id number] Acct: [id number] Name: MICHAEL MEJIA Lesley Sr. Rep #: [id number] : 1965 58 From: Gurpreet Navarro CRNA PCP: Dr. Beryl Harrison, DO Status:ADM IN Y Race: C Location: [place] [address] Anesthesia: Postop Eval I Current Vital Signs [...] CRNA Cosigner Signature: Date CC: Signed Normal [facility] Mean corpuscular hemoglobin (MCH) determinationOrdered By: Evette Ochoa on 11-09-2024 MCH (RBC) [Entitic mass] 29.0 pg 27.0-32.0 [facility] Mean corpuscular hemoglobin concentration (MCHC) determinationOrdered By: Evette Ochoa on 11-09-2024 MCHC (RBC) [Mass/Vol] 33.2 g/dL 32-36 [facility] Mean platelet volume determi nationOrdered By: Evette Ochoa on 11-09-2024 Platelet mean volume (Bld) [Entitic vol] 8.7 fL 6.2-12.0 [facility] Monocyte percentageOrdered B y: Evette Ochoa on 11-09-2024 Monocytes/100 WBC (Bld) 7.8 % 0-10 [facility] Neutrophil percentageOrdered By: Evette Ochoa on 11-09-2024 Neutrophils/100 WBC (Bld) 63.5 % 47-70 [facility] Nucleated red blood cell per centageOrdered By: Evette Ochoa on 11-09-2024 Nucleated RBC/100 WBC (Bld) [Ratio] 0 % 0-5 [facility] O.R. Fluoro for C-Gutierrez 10-21 O.R. Fluoro for C-Arm [facility] Imaging Services [address] [place] [address] O.R. Fluoro for C-Arm MR#: [id number] Acct: [id number] Name: MICHAEL MEJIA Sr. Rep #: [id number] : 1965 M 58 From: Benja Painting PCP: Dr. Beryl Harrison DO Status: ADM IN Study: O.R. Fluoro for C-Arm Date of Exam: 11/09/24 Exam# [id number] Ordering Dr: Boston Wililamson PROCEDURE: CHOLANGIOGRAM/ O R,INITIAL; O.R. FLUORO FOR C-ARM 11/09/2024 REASON FOR EXAM: CHOLECYSTECTOMY WITH IOC TECHNIQUE: CHOLANGIOGRAM/ O R,INITIAL; O.R. FLUORO FOR C-ARM Fluoroscopy time: 23.9 seconds. Dose: 16.72 mGy. COMPARISON: CT examination of 11/06/2024. RAD/O.R. Fluoro for C-Arm IMPRESSION: Intraoperative fluoroscopy was performed for ERCP. Numerous fluoroscopic images were also obtained. Also, cholelithiasis is seen. Reading Location: [place] [address] CC: Dr. Boston Williamson MD; Dr. Beryl Harrison DO Salt Cutter: Signed Normal [facility] Operative Reporton Operative Report [facility] Medical Records Department [address] [place] [address] Operative Report 11/09/24 0904 MR#: [id number] Acct: [id number] Name: MICHAEL MEJIA Sr. Rep #: [id number] : 1965 58 From: Boston Williamson MD PCP: Dr. Beryl Harrison, DO Status:ADM IN [place] [facility] IM175-2 Operative Report (Standard) Operative Information Date of Procedure: 11/09/24 Pre-Operative Diagnosis: Choledocholithiasis with acute cholecystitis Post-Operative Diagnosis: Same Surgery/Procedure Performed: Laparoscopic cholecystectomy with cholangiograms acetylene cutter: Yes Promotional Marketing Analyst: Vandana Gamboa Tasks completed by first coat sander: Opening closing and Retracting Type of Anesthesia: [...] the umbilical fascia was closed in a ihzafg-um-ujtah fashion. The umbilical port site was irrigated [...] DO; Dr. Kate Stark MD Signed Normal [facility] Platelet countOrdered By: Dany Ochoa on 11-09-2024 Platelets (Bld) [#/Vol] 356 10*3/uL 150-450 [facility] Potassium measurement (mass/ volume)Ordered By: Evette Ochoa on 11-09-2024 Potassium (Unsp spec) [Mass/Vol] 4.2 mmol/L 3.3-5.1 [facility] Comment on above: Hemolysis present, R esults could be affected. RBC Auto (Bld) [#/Vol]Ordere d By: Evette Ochoa on 11-09-2024 RBC (Bld) [#/Vol] 4.49 10*6/uL Low 4.6-6.2 [facility] Serum creatinine measurement (mass/volume)Ordered By: Evette Ochoa on 11-09-2024 Creatinine [Mass/Vol] 1.05 mg/dL 0.70-1.20 [facility] Serum globulin measurementOr dered By: Evette Ochoa on 11-09-2024 Globulin (S) [Mass/Vol] 2.9 g/dL 2.2-4.2 [facility] Serum glucose measurement (m ass/volume)Ordered By: Evette Ochoa on 11-09-2024 Glucose [Mass/Vol] 92 mg/dL 70-99 [facility] Serum or plasma alanine wells otransferase (ALT) measurementOrdered By: Evette Ochoa on 11-09-2024 ALT [Catalytic activity/Vol] 130 U/L High <47 [facility] Serum or plasma albumin helen urement (mass/volume)Ordered By: Evette Ochoa on 11-09-2024 Albumin [Mass/Vol] 3.4 g/dL Low 3.5-5.0 [facility] Serum or plasma albumin/glob ulin mass ratioOrdered By: Evette Ochoa on 11-09-2024 Albumin/Globulin [Mass ratio] 1.2 {ratio} 0.9-2.4 [facility] Serum or plasma alkaline jg sphatase measurementOrdered By: Evette Ochoa on 11-09-2024 ALP [Catalytic activity/Vol] 323 U/L High 40-129 [facility] Serum or plasma calcium helen urement (mass/volume)Ordered By: Evette Ochoa on 11-09-2024 Calcium [Mass/Vol] 8.7 mg/dL 7.6-11.0 [facility] Serum or plasma urea nitroge n measurement (mass/volume)Ordered By: Evette Ochoa on 11-09-2024 Urea nitrogen [Mass/Vol] 13 mg/dL 4-19 [facility] Sodium levelOrdered By: Stephen garcia Gabriela on 11-09-2024 Sodium [Moles/Vol] 136 mmol/L 133-145 [facility] Surgery Specimen Level IIIon 11-09-2024 Surgery Specimen Level III ---- Patient Age/Sex Location Account Attending Physician ---- MICHAEL MEJIA Sr. 58/M MS3 [id number] Dr. Micky Meadows DO ---- Specimen: [id number] Received: 11/09/24 Status: MALACHI Phan Num: [id number] Spec Type: MAURO Lai Dr: Dr. Boston [...] few possible pigmented choleliths, all <0.1 cm. Basket Machine Operator sections are submitted in 2 cassettes, to include the margin in cassette A1. OK 11/09/2024 [facility]:[id number] ---- Patient Age/Sex Location Account Attending Physician ---- MICHAEL MEJIA Sr. 58/M MS3 [id number] Dr. Micky Meadows, DO ---- Signed (signature on file) Dr. Taylor Jolley, 11/10/24 1256 ---- Normal [facility] Comment on above: Performed By: #### P SUIII ####[facility] [address] [place], [place], [id number] Total proteinOrdered By: Tamar Ochoa on 11-09-2024 Protein [Mass/Vol] 6.3 g/dL 5.9-8.4 [facility] White blood cell (WBC) count Ordered By: Evette Ochoa on 11-09-2024 WBC (Bld) [#/Vol] 8.4 10*3/uL 4.4-11.0 [facility] CBC W/Diff, Automatedon 10-21 Absolute Lymph 1.85 X10 3/uL Normal 0.83-4.51 [facility] Comment on above: Performed By: #### L 100.0100 #### [facility] Laboratory [address] [place], [place], [address] Absolute Neut 7.6 X10 3/uL Normal 2.0-7.7 [facility] Comment on above: Performed By: #### L 100.0100 #### [facility] Laboratory [address] [place], [place], [address] Basophils/100 WBC (Bld) 0.9 % Normal 0-1 [facility] Comment on above: Performed By: #### L 100.0100 #### [facility] [address] [place], [address] Eosinophils/100 WBC (Bld) 2.2 % Normal 0-5 [facility] Comment on above: Performed By: #### L 100.0100 #### [facility] Laboratory [address] [place], [address] Erythrocyte distribution width (RBC) [Ratio] 14.1 % Normal 11.6-14.6 [facility] Comment on above: Performed By: #### L 100.0100 #### [facility] [address] [place], [address] Hematocrit (Bld) [Volume fraction] 35.9 % Low 40-54 [facility] Comment on above: Performed By: #### L 100.0100 #### [facility] [address] [place], [address] Hemoglobin (Bld) [Mass/Vol] 12.2 g/dL Low 13.0-16.5 [facility] Comment on above: Performed By: #### L 100.0100 #### [facility] [address] [place], [address] IG% 0.600 Normal 0.0-0.9 [facility] Comment on above: Result Comment: IG% - Immature Granulocytes (promyelocytes, myelocytes and metamyelocytes) > 1% indicates that a LEFT SHIFT is Present. Performed By: #### L 100.0100 #### [facility] [address] [place], [address] Lymphocytes/100 WBC (Bld) 17.6 % Low 19-41 [facility] Comment on above: Performed By: #### L 100.0100 #### [facility] [address] [place], [address] MCH (RBC) [Entitic mass] 29.3 pg Normal 27.0-32.0 [facility] Comment on above: Performed By: #### L 100.0100 #### [facility] [address] [place], [address] MCHC (RBC) [Mass/Vol] 34.0 g/dL Normal 32-36 [facility] Comment on above: Performed By: #### L 100.0100 #### [facility] [address] [place], [address] MCV (RBC) [Entitic vol] 86.1 fL Normal 80-94 [facility] Comment on above: Performed By: #### L 100.0100 #### [facility] [address] [place], [address] Monocytes/100 WBC (Bld) 6.9 % Normal 0-10 [facility] Comment on above: Performed By: #### L 100.0100 #### [facility] [address] [place], [address] Neutrophils/100 WBC (Bld) 71.8 % High 47-70 [facility] Comment on above: Performed By: #### L 100.0100 #### [facility] [address] [place], [address] Nucleated RBC (Bld) [#/Vol] 0 10*3/uL Normal 0-5 [facility] Comment on above: Performed By: #### L 100.0100 #### [facility] [address] [place], [address] Platelet mean volume (Bld) [Entitic vol] 8.7 fL Normal 6.2-12.0 [facility] Comment on above: Performed By: #### L 100.0100 #### [facility] [address] [place], [address] Platelets (Bld) [#/Vol] 372 10*3/uL Normal 150-450 [facility] Comment on above: Performed By: #### L 100.0100 #### [facility] [address] [place], [address] RBC (Bld) [#/Vol] 4.17 10*6/uL Low 4.6-6.2 [facility] Comment on above: Performed By: #### L 100.0100 #### [facility] [address] [place], [address] RDW SD 43.8 fl Normal 35.1-43.9 [facility] Comment on above: Performed By: #### L 100.0100 #### [facility] [address] [place], [address] WBC (Bld) [#/Vol] 10.5 10*3/uL Normal 4.4-11.0 [facility] Comment on above: Performed By: #### L 100.0100 #### [facility] [address] [place], [address] Comprehensive Metabolic Prof [facility] 11-08-2024 Albumin [Mass/Vol] 3.2 g/dL Low 3.5-5.0 [facility] Comment on above: Performed By: #### L 500.4050 ####[facility] [address] [place], [address] Albumin/Globulin [Mass ratio] 1.2 {ratio} Normal 0.9-2.4 [facility] Comment on above: Performed By: #### L 500.4050 ####[facility] [address] [place], [address] ALK PHOS 343 U/L High 40-129 [facility] Comment on above: Performed By: #### L 500.4050 ####[facility] [address] [place], [address] ALT [Catalytic activity/Vol] 124 U/L High <=46 [facility] Comment on above: Performed By: #### L 500.4050 ####[facility] [address] [place], [address] AST [Catalytic activity/Vol] 51 U/L High <=37 [facility] Comment on above: Performed By: #### L 500.4050 ####[facility] [address] [place], [address] Bilirubin [Mass/Vol] 3.40 mg/dL High 0.00-1.30 [facility] Comment on above: Performed By: #### L 500.4050 ####[facility] [address] [place], [address] BUN/CRE 12.2 RATIO Normal 10-20 [facility] Comment on above: Performed By: #### L 500.4050 ####[facility] [address] [place], [address] Calcium [Mass/Vol] 8.7 mg/dL Normal 7.6-11.0 [facility] Comment on above: Performed By: #### L 500.4050 ####[facility] [address] [place], [address] Chloride [Moles/Vol] 100 mmol/L Normal 98-108 [facility] Comment on above: Performed By: #### L 500.4050 ####[facility] [address] [place], [address] CO2 [Moles/Vol] 24.8 mmol/L Normal 21.0-32.0 [facility] Comment on above: Performed By: #### L 500.4050 ####[facility] [address] [place], [address] Creatinine [Mass/Vol] 1.02 mg/dL Normal 0.70-1.20 [facility] Comment on above: Performed By: #### L 500.4050 ####[facility] [address] [place], [address] ECRCL 92.85 ml/min Normal 50-250 [facility] Comment on above: Performed By: #### L 500.4050 ####[facility] [address] [place], [address] GAP 12 Normal 5-15 [facility] Comment on above: Performed By: #### L 500.4050 ####[facility] [address] [place], [address] GFR/1.73 sq M.predicted among non-blacks MDRD (S/P/Bld) [Vol rate/Area] 85 mL/min/{1.73_m2} Normal >60 [facility] Comment on above: Result Comment: mL/m in/1.73m2 CKD-EPI Creatinine Equation (2020) Performed By: #### L 500.4050 ####[facility] [address] [place], [address] Globulin (S) [Mass/Vol] 2.7 g/dL Normal 2.2-4.2 [facility] Comment on above: Performed By: #### L 500.4050 ####[facility] [address] [place], [address] Glucose [Mass/Vol] 90 mg/dL Normal 70-99 [facility] Comment on above: Performed By: #### L 500.4050 ####[facility] [address] [place], [address] Potassium [Moles/Vol] 3.8 mmol/L Normal 3.3-5.1 [facility] Comment on above: Performed By: #### L 500.4050 ####[facility] [address] [place], [address] Sodium [Moles/Vol] 136 mmol/L Normal 133-145 [facility] Comment on above: Performed By: #### L 500.4050 ####[facility] [address] [place], [address] T PROT 5.9 g/dL Normal 5.9-8.4 [facility] Comment on above: Performed By: #### L 500.4050 ####[facility] [address] [place], [address] Urea nitrogen [Mass/Vol] 12 mg/dL Normal 4-19 [facility] Comment on above: Performed By: #### L 500.4050 ####[facility] [address] [place], [place], [address] Electrocardiogram reportOrde red By: Osvaldo Hale on 11-07-2024 [address]KG [address] [facility] Cardiovascular Services [address] [place] [address] 12 Lead EKG 11/06/24 0610 MR#: [id number] Acct: [id number] Name: MICHAEL MEJIA Sr. Rep #:[id number] : 1965 58 From: Osvaldo Hale MD Attending Dr: Dr. Mciky Meadows, DO Status: ADM IN Ordering Dr: Manas Cantrell MD Date: 0 11/06/24 [place] [facility] Sex: M C Admitted: 11/05/24 Test Reason [...] available Confirmed by OSVALDO HALE MD ([id number]), editorial director EVETTE MORRIS ([id number]) on 56:15:10 AM Referred By: TATIANA Confirmed By: OSVALDO HALE MD 11/07/24 0615 Date _ Osvaldo Hale MD CC: Dr. Manas Cantrell MD; Dr. Beryl Harrison DO; Dr. Micky Meadows DO ~ Signed [facility] Work Phone: 12 Lead EKGon 11-06-2024 [address] [facility] Cardiovascular Services [address] [place] [address] 12 Lead EKG 11/06/24 0610 MR#: [id number] Acct: [id number] Name: MICHAEL MEJIA Sr. Rep #: [id number] : 1965 58 From: Osvaldo Hale MD Attending Dr: Dr. Micky Meadows DO Status: A DM IN Ordering Dr: Manas Cantrell MD Date: 11/06/24 [place] [facility] Sex: M C Admitted: 11/05/24 Test Reason [...] available Confirmed by OSVALDO HALE MD ([id number]), editorial director EVETTE MORRIS ([id number]) on 11/07/2024 6:15:10 AM Referred By: TATIANA Confirmed By: OSVALDO HALE MD 11/07/24 0615 Date Osvaldo Hale MD CC: Dr. Manas Cantrell MD; Dr. Beryl Harrison DO; Dr. Micky Meadows DO Signed Normal [facility] Abdomen/Pelvis W IV Cont ONL Yon 11-06-2024 Abdomen/Pelvis W IV Cont ONLY [facility] Imaging Services [address] [place] [address] Abdomen/Pelvis W IV Cont ONLY MR#: [id number] Acct: [id number] Name: MICHAEL MEJIA Sr. Rep #: [id number] : 1965 M 58 From: Edwin tucker MD PCP: Dr. Beryl Harrison DO Status: ADM IN Study: Abdomen/Pelvis W IV Cont ONLY Date of Exam: Exam# [id number] Ordering Dr: Tim Murray DO PROCEDURE: ABDOMEN/PELVIS [...] cyst dilatation of the gallbladder. Reading Location: [id number] CC: Dr. Beryl Harrison, ; Tim Murray, Salt Cutter: Signed Normal [facility] CBC W/Diff, Automatedon 10-20 Absolute Lymph 1.52 X10 3/uL Normal 0.83-4.51 [facility] Comment on above: Performed By: #### L 500.4050, L100.0100 #### [facility] Laboratory [address] [place], [address] Absolute Neut 7.3 X10 3/uL Normal 2.0-7.7 [facility] Comment on above: Performed By: #### L 500.4050, L100.0100 #### [facility] Laboratory [address] [place], [address] Basophils/100 WBC (Bld) 1.0 % Normal 0-1 [facility] Comment on above: Performed By: #### L 500.4050, L100.0100 #### [facility] [address] [place], [address] Eosinophils/100 WBC (Bld) 12.4 % High 0-5 [facility] Comment on above: Performed By: #### L 500.4050, L100.0100 #### [facility] Laboratory [address] [place], [address] Erythrocyte distribution width (RBC) [Ratio] 13.2 % Normal 11.6-14.6 [facility] Comment on above: Performed By: #### L 500.4050, L100.0100 #### [facility] Laboratory [address] [place], [address] Hematocrit (Bld) [Volume fraction] 38.7 % Low 40-54 [facility] Comment on above: Performed By: #### L 500.4050, L100.0100 #### [facility] [address] [place], [address] Hemoglobin (Bld) [Mass/Vol] 12.9 g/dL Low 13.0-16.5 [facility] Comment on above: Performed By: #### L 500.4050, L100.0100 #### [facility] Laboratory [address] [place], [address] IG% 0.500 Normal 0.0-0.9 [facility] Comment on above: Result Comment: IG% - Immature Granulocytes (promyelocytes, myelocytes and metamyelocytes) > 1% indicates that a LEFT SHIFT is Present. Performed By: #### L 500.4050, L100.0100 #### [facility] Laboratory [address] [place], [address] Lymphocytes/100 WBC (Bld) 13.1 % Low 19-41 [facility] Comment on above: Performed By: #### L 500.4050, L100.0100 #### [facility] Laboratory [address] [place], [address] MCH (RBC) [Entitic mass] 28.6 pg Normal 27.0-32.0 [facility] Comment on above: Performed By: #### L 500.4050, L100.0100 #### [facility] Laboratory [address] [place], [address] MCHC (RBC) [Mass/Vol] 33.3 g/dL Normal 32-36 [facility] Comment on above: Performed By: #### L 500.4050, L100.0100 #### [facility] Laboratory [address] [place], [address] MCV (RBC) [Entitic vol] 85.8 fL Normal 80-94 [facility] Comment on above: Performed By: #### L 500.4050, L100.0100 #### [facility] Laboratory [address] [place], [address] Monocytes/100 WBC (Bld) 9.6 % Normal 0-10 [facility] Comment on above: Performed By: #### L 500.4050, L100.0100 #### [facility] Laboratory [address] [place], [address] Neutrophils/100 WBC (Bld) 63.4 % Normal 47-70 [facility] Comment on above: Performed By: #### L 500.4050, L100.0100 #### [facility] Laboratory [address] [place], [address] Nucleated RBC (Bld) [#/Vol] 0 10*3/uL Normal 0-5 [facility] Comment on above: Performed By: #### L 500.4050, L100.0100 #### [facility] Laboratory [address] [place], [address] Platelet mean volume (Bld) [Entitic vol] 8.9 fL Normal 6.2-12.0 [facility] Comment on above: Performed By: #### L 500.4050, L100.0100 #### [facility] Laboratory [address] [place], [address] Platelets (Bld) [#/Vol] 363 10*3/uL Normal 150-450 [facility] Comment on above: Performed By: #### L 500.4050, L100.0100 #### [facility] Laboratory [address] [place], [address] RBC (Bld) [#/Vol] 4.51 10*6/uL Low 4.6-6.2 [facility] Comment on above: Performed By: #### L 500.4050, L100.0100 #### [facility] Laboratory [address] [place], [address] RDW SD 41.1 fl Normal 35.1-43.9 [facility] Comment on above: Performed By: #### L 500.4050, L100.0100 #### [facility] Laboratory [address] [place], [address] WBC (Bld) [#/Vol] 11.6 10*3/uL High 4.4-11.0 [facility] Comment on above: Performed By: #### L 500.4050, L100.0100 #### [facility] Laboratory [address] [place], [address] Comprehensive Metabolic Prof [facility] 11-06-2024 Albumin [Mass/Vol] 3.3 g/dL Low 3.5-5.0 [facility] Comment on above: Performed By: #### L 500.4050, L100.0100 #### [facility] Laboratory [address] [place], [address] Albumin/Globulin [Mass ratio] 1.1 {ratio} Normal 0.9-2.4 [facility] Comment on above: Performed By: #### L 500.4050, L100.0100 #### [facility] Laboratory [address] [place], [address] ALK PHOS 514 U/L High 40-129 [facility] Comment on above: Performed By: #### L 500.4050, L100.0100 #### [facility] Laboratory [address] [place], [address] ALT [Catalytic activity/Vol] 229 U/L High <=46 [facility] Comment on above: Performed By: #### L 500.4050, L100.0100 #### [facility] Laboratory [address] [place], [address] AST [Catalytic activity/Vol] 183 U/L High <=37 [facility] Comment on above: Performed By: #### L 500.4050, L100.0100 #### [facility] Laboratory [address] [place], [address] Bilirubin [Mass/Vol] 14.00 mg/dL High 0.00-1.30 [facility] Comment on above: Performed By: #### L 500.4050, L100.0100 #### [facility] Laboratory [address] [place], [address] BUN/CRE 7.9 RATIO Low 10-20 [facility] Comment on above: Performed By: #### L 500.4050, L100.0100 #### [facility] Laboratory [address] [place], [address] Calcium [Mass/Vol] 8.7 mg/dL Normal 7.6-11.0 [facility] Comment on above: Performed By: #### L 500.4050, L100.0100 #### [facility] Laboratory [address] [place], [address] Chloride [Moles/Vol] 98 mmol/L Normal 98-108 [facility] Comment on above: Performed By: #### L 500.4050, L100.0100 #### [facility] Laboratory [address] [place], [address] CO2 [Moles/Vol] 21.0 mmol/L Normal 21.0-32.0 [facility] Comment on above: Performed By: #### L 500.4050, L100.0100 #### [facility] Laboratory [address] [place], [address] Creatinine [Mass/Vol] 1.18 mg/dL Normal 0.70-1.20 [facility] Comment on above: Result Comment: Icte kaylin present, Results may be affected. Performed By: #### L 500.4050, L100.0100 #### [facility] Laboratory [address] [place], [address] ECRCL 80.26 ml/min Normal 50-250 [facility] Comment on above: Performed By: #### L 500.4050, L100.0100 #### [facility] Laboratory [address] [place], [address] GAP 14 Normal 5-15 [facility] Comment on above: Performed By: #### L 500.4050, L100.0100 #### [facility] Laboratory [address] [place], [address] GFR/1.73 sq M.predicted among non-blacks MDRD (S/P/Bld) [Vol rate/Area] 71 mL/min/{1.73_m2} Normal >60 [facility] Comment on above: Result Comment: mL/m in/1.73m2 CKD-EPI Creatinine Equation (2020) Performed By: #### L 500.4050, L100.0100 #### [facility] Laboratory [address] [place], [address] Globulin (S) [Mass/Vol] 2.9 g/dL Normal 2.2-4.2 [facility] Comment on above: Performed By: #### L 500.4050, L100.0100 #### [facility] Laboratory [address] [place], [address] Glucose [Mass/Vol] 109 mg/dL High 70-99 [facility] Comment on above: Performed By: #### L 500.4050, L100.0100 #### [facility] Laboratory [address] [place], [address] Potassium [Moles/Vol] 3.7 mmol/L Normal 3.3-5.1 [facility] Comment on above: Performed By: #### L 500.4050, L100.0100 #### [facility] Laboratory [address] [place], [address] Sodium [Moles/Vol] 133 mmol/L Normal 133-145 [facility] Comment on above: Performed By: #### L 500.4050, L100.0100 #### [facility] Laboratory [address] [place], [address] T PROT 6.3 g/dL Normal 5.9-8.4 [facility] Comment on above: Performed By: #### L 500.4050, L100.0100 #### [facility] Laboratory [address] [place], [address] Urea nitrogen [Mass/Vol] 9 mg/dL Normal 4-19 [facility] Comment on above: Performed By: #### L 500.4050, L100.0100 #### [facility] Laboratory [address] [place], [address] Consultation - Surgicalon Consultation - Surgical [facility] Medical Records Department [address] [place] [address] Consultation - Surgical 11/06/24 0725 MR#: [id number] Acct: [id number] Name: MICHAEL MEJIA Sr. Rep #: [id number] : 1965 58 From: Boston Williamson MD PCP: Dr. Beryl Harrison, DO Status:ADM IN Location: [address] Assessment Plan Assessment/Plan (1) Jaundice: PLAN: The patient is obstructive jaundice. I believe Dr. Murray is ordering a repeat CT scan to evaluate the bile duct. I will be available to remove the patient's gallbladder after obstruction is been dealt with. Boston Williamson MD Pager: [facility] [address] [place], [place] [address]ilion, [address] [place] [address] Office: HPI Consult Data Date of Consult: [...] identified. The patient's bilirubin is markedly elevated. [facility] Medical History Depression Anxiety HTN (hypertension) [...] (Auto) 63.4, Lymph % (Auto) 13.1 L, Bonner % (Auto) 9.6, Eos % (Auto) 12.4 [...] applicable): CC: Dr. Beryl Harrison, Signed Normal [facility] ERCP Biliary/Pancreason 10-20 ERCP Biliary/Pancreas [facility] Imaging Services [address] [place], [place] [address] ERCP Biliary/Pancreas MR#: [id number] Acct: [id number] Name: MICHAEL MEJIA Lesley Serrano. Rep #: [id number] : 1965 M 58 From: Benja Painting PCP: Dr. Beryl Harrison DO Status: ADM IN Study: ERCP Biliary/Pancreas Date of Exam: 11/06/24 Exam# [id number] Ordering Dr: Tim Murray DO PROCEDURE: ERCP BILIARY/PANCREAS; O.R. FLUORO FOR C-ARM 11/06/2024 REASON FOR EXAM: ABD PAIN TECHNIQUE: ERCP BILIARY/PANCREAS; O.R. FLUORO FOR C-ARM. Fluoroscopy time: 90.7 seconds. Dose: 50.26 mGy. COMPARISON: CT examination 11/06/2024. RAD/ERCP Biliary/Pancreas IMPRESSION: Intraoperative fluoroscopy was performed for ERCP. Additionally, 13 fluoroscopic images were obtained. Reading Location: [place] [address] CC: Dr. Beryl Harrison DO; Tim Murray DO Salt Cutter: Signed Normal [facility] ERCP Reporton 11-06-2024 ERCP Report [facility] Medical Records Department [address] [place] [address] ERCP Report MR#: [id number] Acct: [id number] Name: MICHAEL MEJIA . Rep #: [id number] : 1965 58 From: Tim Murray DO [...] hours 12 minutes 38 seconds Findings: The allocation analyst film was normal. The esophagus was successfully [...] bile duct (more content not included)... Normal [facility] MR/CON.PCM.GIon 11-06-2024 MR/CON.PCM.GI [facility] Medical Records Department [address] [place] [address] Consultation - GI 11/06/24 1140 MR#: [id number] Acct: [id number] Name: MICHAEL MEJIA Sr. Rep #: [id number] : 1965 58 From: Tim Murray DO PCP: Dr. Beryl Harrison, DO Status:ADM IN [facility] H[facility] Consult Data Date of Consult: 11/06/24 [...] the above he was given antibiotics and [facility] contacted for transfer. Upon arrival his bilirubin was 14, AST of 134, AST 150 and alkaline phosphatase of 250. [facility] Medical History Depression Anxiety HTN (hypertension) [...] (Auto) 63.4, Lymph % (Auto) 13.1 L, Bonner % (Auto) 9.6, Eos % (Auto) 12.4 [...] cyst dilatation of the gallbladder. Reading Location: [id number] Assessment Plan Assessment/Plan (1) Choledocholithiasis: (2) Jaundice: PLAN: 58-year-old gentleman with obstructive jaundic (more content not included)... Normal [facility] Medical Records Department [address] [place] [address] Provation Physician Letter MR#: [id number] Acct: [id number] Name: MICHAEL MEJIA Sr. Rep #: [id number] : 1965 58 From: Tim Murray DO [...] MD Date Dictated: 11/06/24 1108 Date Transcribed: Salt Cutter: PHILLIP Signed [facility] MR/POSTOP.[facility] 11-06-2024 MR/POSTOP.[facility] Medical Records Department [address] [place] [address] Anesthesia Postop Eval I 11/06/24 1300 MR#: [id number] Acct: [id number] Name: MICHAEL MEJIA Sr. Rep #: [id number] : 1965 58 From: Hank Reese PCP: Dr. Beryl Harrison DO Status:ADM IN Y Race: C [place] [id number] Anesthesia: Postop Eval I Current Vital Signs [...] Hank Juarez Signature: Date CC: Signed Normal [facility] MR/MDWEPQYR8gy 11-06-2024 MR/POSTOPAN2 [facility] Medical Records Department [address] [place] [address] Anesthesia Postop Eval II 11/06/24 1346 MR#: [id number] Acct: [id number] Name: MATEUSZMICHAEL Sr. Rep #: [id number] : 1965 58 From: Vinita Goss CRNA PCP: Dr. Beryl Harrison, DO Status:ADM IN Y Race: C [place] [id number] Anesthesia Postop Eval I Sum Postop Eval [...] Vinita Whitmanigner Signature: Date CC: Signed Normal [facility] O.R. Fluoro for C-Gutierrez 10-20 O.R. Fluoro for C-Arm [facility] Imaging Services [address] [place] [address] O.R. Fluoro for C-Arm MR#: [id number] Acct: [id number] Name: MATEUSZMICHAEL Lesley Serrano. Rep #: [id number] : 1965 M 58 From: Benja Painting PCP: Dr. Beryl Harrison DO Status: ADM IN Study: O.R. Fluoro for C-Arm Date of Exam: 11/06/24 Exam# [id number] Ordering Dr: Tim Murray DO PROCEDURE: ERCP BILIARY/PANCREAS; O.R. FLUORO FOR C-ARM 11/06/2024 REASON FOR EXAM: ABD PAIN TECHNIQUE: ERCP BILIARY/PANCREAS; O.R. FLUORO FOR C-ARM. Fluoroscopy time: 90.7 seconds. Dose: 50.26 mGy. COMPARISON: CT examination 11/06/2024. RAD/O.R. Fluoro for C-Arm IMPRESSION: Intraoperative fluoroscopy was performed for ERCP. Additionally, 13 fluoroscopic images were obtained. Reading Location: [place] [address] CC: Dr. Beryl Harrison DO; Tim Murray DO Salt Cutter: Signed [facility] CBC + DIFFon 11-05-2024 Baso # 0.04 x10EE3/UL Normal 0.00 - 0.10 [facility] Comment on above: Performed By: #### 2 91880 #### [facility],[address] [place] [address] Basophils/100 WBC (Bld) 0.4 % Normal 0.0 - 2.0 [facility] Comment on above: Performed By: #### 2 20958 #### [facility],[address] [place] [address] CBC + DIFF Normal [facility] Comment on above: Result Comment: CBC- COMPLETE BLOOD COUNT Performed By: #### 2 34832 #### [facility],[address] [place] [address] EO # 0.58 x10EE3/UL High 0.00 - 0.50 [facility] Comment on above: Performed By: #### 2 10271 #### [facility],[address] [place] [address] Eosinophils/100 WBC (Bld) 5.2 % Normal 0.0 - 7.0 [facility] Comment on above: Performed By: #### 2 32723 #### [facility],[address] [place] [address] Erythrocyte distribution width (RBC) [Ratio] 13.5 % Normal 12.0 - 15.6 [facility] Comment on above: Performed By: #### 2 89182 #### [facility],[address] [place] [address] Hematocrit (Bld) [Volume fraction] 44.4 % Normal 40.0 - 52.0 [facility] Comment on above: Performed By: #### 2 18640 #### [facility],[address] [place] [address] Hemoglobin (Bld) [Mass/Vol] 15.9 g/dL Normal 13.0 - 17.5 [facility] Comment on above: Performed By: #### 2 83487 #### [facility],[address] [place] [address] Lymph # 1.46 x10EE3/UL Normal 0.80 - 2.80 [facility] Comment on above: Performed By: #### 2 15145 #### [facility],[address] [place] [address] Lymphocytes/100 WBC (Bld) 13.2 % Low 20.0 - 45.0 [facility] Comment on above: Performed By: #### 2 09285 #### [facility],[address] [place] [address] MANUAL DIFF N/A Normal [facility] Comment on above: Performed By: #### 2 13568 #### [place] [id number] MCH (RBC) [Entitic mass] 31 pg Normal 27 - 33 [facility] Comment on above: Performed By: #### 2 95862 #### [place] [address] MCHC 36 X10 3 Normal 32 - 36 [facility] Comment on above: Performed By: #### 2 83284 #### [address] [address] MCV (RBC) [Entitic vol] 86 fL Normal 81 - 98 [facility] Comment on above: Performed By: #### 2 97423 #### [address] [address] Bonner # 0.80 x10EE3/UL Normal 0.20 - 1.00 [facility] Comment on above: Performed By: #### 2 16573 #### [address] [address] MONOS % 7.2 % Normal 0.0 - 10.0 [facility] Comment on above: Performed By: #### 2 00685 #### [facility],[address] [place] [address] Morphology Cole (Bld) [Interp] N/A Normal [facility] Comment on above: Performed By: #### 2 25420 #### [facility],[address] [place] [address] Neut # 8.22 x10EE3/UL High 1.50 - 7.10 [facility] Comment on above: Performed By: #### 2 23331 #### [facility],[address] [place] [address] Neutrophils/100 WBC (Bld) 74.1 % Normal 46.0 - 76.0 [facility] Comment on above: Performed By: #### 2 26237 #### [facility],[address] [place] [address] PLATELET 426 x10EE3/UL Normal 150 - 450 [facility] Comment on above: Performed By: #### 2 43933 #### [address] [address] Platelet mean volume (Bld) [Entitic vol] 6.8 fL Normal 6.4 - 10.5 [facility] Comment on above: Result Comment: AUTO MATED DIFFERENTIAL Performed By: #### 2 00804 #### [facility],[address] [place] [address] RBC 5.14 x 10EE6/UL Normal 4.50 - 6.00 [facility] Comment on above: Performed By: #### 2 73829 #### [facility],[address] [place] [address] WBC 11.1 x 10EE3/UL High 4.5 - 10.8 [facility] Comment on above: Performed By: #### 2 89208 #### [facility],[address] [place] [address] CMP with eGFRon 11-05-2024 AGE 58 years Normal [facility] Comment on above: Performed By: #### 2 44383 #### [address] [address] Albumin [Mass/Vol] 3.2 g/dL Low 3.4 - 5.0 [facility] Comment on above: Performed By: #### 2 04459 #### [facility],[address] [place] [address] Albumin/Globulin [Mass ratio] 0.7 {ratio} Low 0.9 - 1.6 [facility] Comment on above: Performed By: #### 2 92089 #### [facility],[address] [place] [address] ALK PHOS 599 U/L High 46 - 116 [facility] Comment on above: Performed By: #### 2 07004 #### [facility],[address] [place] [address] ALT [Catalytic activity/Vol] 332 U/L High 16 - 63 [facility] Comment on above: Performed By: #### 2 42459 #### [address] [address] Anion gap [Moles/Vol] 15 mmol/L Normal 10 - 20 [facility] Comment on above: Performed By: #### 2 07075 #### [address] [address] AST [Catalytic activity/Vol] 226 U/L High 15 - 37 [facility] Comment on above: Performed By: #### 2 78360 #### [facility],[address] [place] [address] B/C RATIO 7 ratio Normal 0 - 30 [facility] Comment on above: Performed By: #### 2 44752 #### [facility],[address] [place] [address] Bilirubin [Mass/Vol] 15.4 mg/dL Critically high 0.2 - 1.0 [facility] Comment on above: Result Comment: { CA LLED TO ZEINA BY MY AT 12:42 { READ BACK BY ZEINA RA MY AT 12:42 Performed By: #### 2 28488 #### [facility],[address] [place], [place] [id number] Calcium [Mass/Vol] 9.6 mg/dL Normal 8.5 - 10.1 [facility] Comment on above: Performed By: #### 2 19632 #### [facility],[address] [place], [place] [address] Chloride [Moles/Vol] 94 mmol/L Low 98 - 107 [facility] Comment on above: Performed By: #### 2 84236 #### [facility],[address] [place], [place] [address] CMP with eGFR Normal [facility] Comment on above: Result Comment: COMP REHENSIVE METABOLIC PANEL Performed By: #### 2 58483 #### [facility],[address] [place], [place] [address] CO2 [Moles/Vol] 25.0 mmol/L Normal 21.0 - 32.0 [facility] Comment on above: Performed By: #### 2 41931 #### [facility],[address] [place], [place] [address] Creatinine [Mass/Vol] 1.08 mg/dL Normal 0.70 - 1.30 [facility] Comment on above: Performed By: #### 2 70842 #### [facility],[address] [place] [address] 19303 eGFR 70 ML/MINUTE Normal 60 - 999 [facility] Comment on above: Performed By: #### 2 95707 #### [facility],[address] [place] [address] GFR/1.73 sq M.predicted among non-blacks MDRD (S/P/Bld) [Vol rate/Area] mL/min/{1.73_m2} Normal 60 - 999 [facility] Comment on above: Result Comment: ACCO RDING TO THE NATIONAL KIDNEY DISEASE EDUCATION PROGRAM(NKDE), A NORMAL eGFR IS A VALUE GREATER THAN OR EQUAL TO 60 ML/MIN/1.73 SQ METERS. CHRONIC KIDNEY DISEASE: <60mL/MIN/1.73 SQ METERS KIDNEY FAILURE: <15mL/MIN/1.73 SQ METERS THIS TEST SHOULD ONLY BE USED FOR PATIENTS 18 YEARS OF AGE AND OLDER. Performed By: #### 2 95211 #### [facility],[address] [place] [address]25 Globulin (S) [Mass/Vol] 4.6 g/dL High 1.5 - 3.8 [facility] Comment on above: Performed By: #### 2 42138 #### [facility],[address] [place] [address]121 Glucose [Mass/Vol] 124 mg/dL High 74 - 106 [facility] Comment on above: Performed By: #### 2 18987 #### [facility],[address] [place] [address] Potassium [Moles/Vol] 3.7 mmol/L Normal 3.5 - 5.1 [facility] Comment on above: Performed By: #### 2 24921 #### [facility],[address] [place] [address] 48224 Protein [Mass/Vol] 7.8 g/dL Normal 6.4 - 8.2 [facility] Comment on above: Performed By: #### 2 12637 #### [facility],[address] [place] [address] 23282 Sodium [Moles/Vol] 130 mmol/L Low 136 - 145 [facility] Comment on above: Performed By: #### 2 97178 #### [facility],[address] [place] [address] 12337 Urea nitrogen [Mass/Vol] 8 mg/dL Normal 7 - 18 [facility] Comment on above: Performed By: #### 2 92189 #### [facility],[address] [place] [address] 51682 CULTURE BLOOD [LUIS]on Microscopic examination of blood, culture CULTURE BLOOD [LUIS] _BLOOD CULTURE_ [facility] REPORTS AND ATTACHMENTS FOR SCANNED REPORT 11/16/24.1030.DNP.COMP LETCoty Normal [facility] Comment on above: Performed By: #### 2 55087 #### [facility],[address] [place] [address] 89532 Microscopic examination of blood, culture CULTURE BLOOD [LUIS] _BLOOD CULTURE_ GO TO [facility] REPORTS AND ATTACHMENTS FOR SCANNED REPORT 11/16/24.1030.DNP.COMP JESÚS Normal [facility] Comment on above: Performed By: #### 2 21948 #### [facility],[address] [place] [address] 40196 ED MED ADMINISTRATION DETAIL on 11-05-2024 ED MED ADMINISTRATION DETAIL 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 2 of 2 Normal [facility] ED NURSES CLINICAL NOTEon ED NURSES CLINICAL NOTE Nurse Narrative - MICHAEL MEJIA, : 1965, , Nurse Clinical Narrative [address] [address] [id number] 11/05/2024 11:54:00 Patient: MICHAEL MEJIA Sex: Male : 1965 Age: 58y Disposition: Transfer to [facility] Disposition Decision Time: 13:14 11/05/2024 Departure Time: [...] CAYDEN Pereyra R.N. 11:52 11/05/24. Preferred Pharmacy: ([facility]). -- 12:02 11/05/24 CAYDEN Pereyra R.N. [...] 11/05/24. Zofra (more content not included)... Normal [facility] ED ORDER SHEET (CPOE ONLY)on 11-05-2024 ED ORDER SHEET (CPOE ONLY) Order Sheet - MICHAEL MEJIA, : 1965, , Order Sheet [address] [address] [id number] 11/05/2024 Patient: MICHAEL MEJIA Sex: Male : [...] (11/05/2024 19:57 EDT)] 3 of 3 Normal [facility] ED PHYSICIAN CLINICAL REPORT on 11-05-2024 ED PHYSICIAN CLINICAL REPORT Narrative - MICHAEL MEJIA, : 1965, , Physician Clinical Narrative [address] [address] [id number] 11/05/2024 11:54:00 Patient: MICHAEL MEJIA Sex: Male : 1965 Age: 58y Disposition: Transfer to [facility] Disposition Decision Time: 13:14 11/05/2024 Departure Time: [...] EDT 11/06/19 (more content not included)... Normal [facility] ED SUPER BILLon 11-05-2024 ED [facility] B[facility] - MICHAEL MEJIA, : 1965, , [place] [address] [id number] 11/05/2024 Patient: MICHAEL MEJIA Sex: Male : 1965 Age: 58y Facility Professional Category Item Description Code Code Quantity Fee Total Drugs Normal Saline 911830 1 $0.00 $0.00 1000cc (419585) Nurse/E/M EMERGENCY 751071 1 $0.00 $0.00 DEPT VISIT HIGH SEVERITYFUNCJ (36977-92) Nurse/IV/IM/Infusions Drip/IVPB initial 402935 1 $0.00 $0.00 (46419) Nurse/IV/IM/Infusions Hydration 052502 2 $0.00 $0.00 additional hour (24960) Nurse/IV/IM/Infusions IVP additional 922600 2 $0.00 $0.00 push (38910) Nurse/IV/IM/Infusions IVP same med 467376 1 $0.00 $0.00 (31 min apart) (51366) Grand $0.00 Total 1 of 2 [facility] - MICHAEL MEJIA, : 1965, , Providers Yamil Taylor M.D. Chief Complaint ABDOMINAL PAIN. Principal Diagnosis Acute abdominal pain. Cholelithiasis with obstruction and acute cholecystitis. Choledocholithiasis. ICD-10 Codes R10.9: Unspecified abdominal pain K80.01: Calculus of gallbladder with acute cholecystitis with obstruction 2 of 2 [facility] ED VISIT SUMMARYon ED VISIT SUMMARY Visit Overview - MICHAEL MEJIA : 1965, , Visit [address] [address] [id number] 11/05/2024 Patient: MICHAEL MEJIA Sex: Male : [...] day. 1 of 4 Visit Overview - MEJIACOBRIN ARGUETALEY, : 1965, , sertraline 100 mg [...] AND ACUTE CHOLECYSTITIS 4 of 4 Normal [facility] ED VITALS FLOW SHEETon 11-05 ED VITALS FLOW SHEET Vitals - MICHAEL MEJIA : 1965, , Vital Sign Flow Sheet [address] [address] [id number] 11/05/2024 Patient: MICHAEL MEJIA Sex: Male : [...] 98.5 F 9 3 of 3 Normal [facility] H AND P Exam - Hospitaliston 11-05-2024 H&P Exam - Hospitalist [facility] Medical Records Department [address] [place] [address] H P Exam - Hospitalist 11/05/24 1656 MR#: [id number] Acct: [id number] Name: MEJIAMICHAEL Sr. Rep #: [id number] : 1965 58 From: Kate Stark MD PCP: Dr. Beryl Harrison, DO Status:ADM IN [place] [id number] HPI - General General Date of Admission: 11/05/24 Date of Service: 11/05/24 Chief Complaint: Abd pain and jaundince HPI Narrative MICHAEL MEJIA, is a 58-year-old male with a history of hypertension, GERD, anxiety [facility] 3 weeks of abdominal [...] the above he was given antibiotics and [facility] contacted for transfer. Accepting hospitalist discussed with the GI and surgery and accepted the patient, they will be seen in consult. Patient arrived to the floor in stable condition. Evaluated patient at bedside. Patient reports history as above, he said right now his nausea and pain are little bit better after getting antibiotics and medication at the outlying facility in [place]. When asked for ROS patient said a [...] has taken his temperature during those times. [facility] Medical History (Updated 11/05/24 @ 17:33 [...] given histo (more content not included)... Normal [facility] LACTATEon 11-05-2024 Lactate [Moles/Vol] 1.4 mmol/L Normal 0.4 - 2.0 [facility] Comment on above: Performed By: #### 2 05679 #### [place] [address] LIPASEon 11-05-2024 Lipase [Catalytic activity/Vol] 23.0 U/L Normal 15.0 - 78.0 [facility] Comment on above: Result Comment: *PLE ASE NOTE THAT RANGES FOR LIPASE HAVE CHANGED OF 03/19/23 DUE TO AN ASSAY UPDATE BY THE TRIAL JUDGE.THE NEW ASSAY RANGE IS 6-250 U/L, WITH A REFERENCE RANGE OF 16-77 U/L. Performed By: #### 2 03888 #### [place] [address] URINALYSISon 11-05-2024 Amorphous NONE Normal [facility] Comment on above: Performed By: #### 2 94867 #### [place] [address] Bacteria NONE Normal [facility] Comment on above: Performed By: #### 2 09727 #### [facility],[address] [place] [address] 74707 Bilirubin Ql (U) 6 Abnormal NORMAL: NEGATIVE [facility] Comment on above: Performed By: #### 2 60817 #### [facility],[address] [place] [address] 74233 Casts NONE Normal [facility] Comment on above: Performed By: #### 2 32480 #### [facility],[address] [place] [address] 15267 Clarity (U) clear Normal NORMAL: CLEAR [facility] Comment on above: Performed By: #### 2 19483 #### [facility],[address] [place] [address] 21238 Color (U) brown Normal NORMAL: YELLOW [facility] Comment on above: Performed By: #### 2 49387 #### [facility],[address] [place] [address] 61416 Crystals LM Nom (Urine sed) NONE Normal [facility] Comment on above: Performed By: #### 2 59210 #### [facility],[address] [place] [address] 74822 Epi Cells NONE Normal [facility] Comment on above: Performed By: #### 2 55307 #### [facility],[address] [place] [address] 50361 Glucose Ql (U) NORM Normal NORMAL: NORMAL [facility] Comment on above: Performed By: #### 2 82131 #### [facility],[address] [place] [address] [place] [address] Hemoglobin Ql (U) 50 Abnormal NORMAL: NEGATIVE [facility] Comment on above: Performed By: #### 2 47562 #### [facility],[address] [place] [address] [place] [address] Ketone 50 Abnormal NORMAL: NEGATIVE [facility] Comment on above: Performed By: #### 2 96878 #### [facility],[address] [place] [address] 52358 Leukocytes 25 Abnormal NORMAL: NEGATIVE [facility] Comment on above: Performed By: #### 2 59047 #### [facility],[address] [place] [address] 69284 Mucous NONE Normal [facility] Comment on above: Performed By: #### 2 89386 #### [facility],[address] [place] [address] Nitrite Ql (U) Positive Normal NORMAL: NEGATIVE [facility] Comment on above: Performed By: #### 2 23779 #### [facility],[address] [place] [address] pH (U) 6 [pH] Normal NORMAL: 5.0-8.0 [facility] Comment on above: Performed By: #### 2 22656 #### [facility],[address] [place] [address] Protein Ql (U) 30 Abnormal NORMAL: NEGATIVE [facility] Comment on above: Performed By: #### 2 54454 #### [facility],[address] [place] [address] Rbc NONE Normal 0-3/hpf [facility] Comment on above: Performed By: #### 2 91775 #### [facility],[address] [place] [address] Sp [place] 1.015 Normal NORMAL: 1.010-1.030 [facility] Comment on above: Performed By: #### 2 33798 #### [facility],[address] [place] [address] Specimen Type R Normal [facility] Comment on above: Performed By: #### 2 80015 #### [facility],[address] [place] [address] Urinalysis dipstick W Reflex Microscopic panel (U) SEE BELOW Normal [facility] Comment on above: Result Comment: MICR OSCOPIC Performed By: #### 2 34032 #### [facility],[address] [place] [address] 42218 Urobilinog 8 Abnormal NORMAL: NORMAL [facility] Comment on above: Performed By: #### 2 51345 #### [facility],[address] [place] [address] 48703 Wbc NONE Normal 0-5/hpf [facility] Comment on above: Performed By: #### 2 31410 #### [facility],[address] [place] [address] 90325 Yeast NONE Normal [facility] Comment on above: Performed By: #### 2 56804 #### [facility],[address] [place] [address] 93528 US RUQ (GB/PANCREAS)on 11-03 US RUQ (GB/PANCREAS) [place] [address] Patient: MICHAEL MEJIA Phone#: : 1965 Age: 58 Gender: M Pt. Type: Out Account: [id number] Location: [facility] Ordering: TRUPTI PAINTER Exam Date: 11/03/2024/6:58 Family Phys: Charge Code: [id number] Physician: Graves Order #: [id number] Dose#: PROCEDURE: RUQ (GB) ULTRASOUND COMPARISON: None. [...] MARINA MD ON 11/03/2024 AT 8:49 Normal [facility] AMYLASEon 11-02-2024 Amylase [Catalytic activity/Vol] 27 U/L Normal 25 - 115 [facility] Comment on above: Performed By: #### 2 75117 #### [place] [address] LIPASEon 11-02-2024 Lipase [Catalytic activity/Vol] 20.0 U/L Normal 15.0 - 78.0 [facility] Comment on above: Result Comment: *PLE ASE NOTE THAT RANGES FOR LIPASE HAVE CHANGED OF 03/19/23 DUE TO AN ASSAY UPDATE BY THE TRIAL JUDGE.THE NEW ASSAY RANGE IS 6-250 U/L, WITH A REFERENCE RANGE OF 16-77 U/L. Performed By: #### 2 80641 #### [place] [address] C-REACTIVE PROTEINon 025 CRP 0.87 mg/dl Normal 0.00 - 0.90 [facility] Comment on above: Performed By: #### 2 42121 #### [place] [address] CBC + DIFFon 10-13-2024 Baso # 0.03 x10EE3/UL Normal 0.00 - 0.10 [facility] Comment on above: Performed By: #### 2 72941 #### [place] [id number] Basophils/100 WBC (Bld) 0.3 % Normal 0.0 - 2.0 [facility] Comment on above: Performed By: #### 2 88765 #### [facility],[address] [place] [address] 45851 CBC + DIFF Normal [facility] Comment on above: Result Comment: CBC- COMPLETE BLOOD COUNT Performed By: #### 2 77717 #### [facility],[address] [place] [address] 02624 EO # 0.15 x10EE3/UL Normal 0.00 - 0.50 [facility] Comment on above: Performed By: #### 2 11027 #### [facility],[address] [place] [address] 55615 Eosinophils/100 WBC (Bld) 1.4 % Normal 0.0 - 7.0 [facility] Comment on above: Performed By: #### 2 32397 #### [facility],[address] [place], [place] [phone] Erythrocyte distribution width (RBC) [Ratio] 13.4 % Normal 12.0 - 15.6 [facility] Comment on above: Performed By: #### 2 61192 #### [facility],[address] [place] [address] 89755 Hematocrit (Bld) [Volume fraction] 47.7 % Normal 40.0 - 52.0 [facility] Comment on above: Performed By: #### 2 24095 #### [facility],[address] [place] [address] 74144 Hemoglobin (Bld) [Mass/Vol] 16.6 g/dL Normal 13.0 - 17.5 [facility] Comment on above: Performed By: #### 2 59445 #### [facility],[address] [place] [address] 86805 Lymph # 1.42 x10EE3/UL Normal 0.80 - 2.80 [facility] Comment on above: Performed By: #### 2 91298 #### [facility],[address] [place] [address] 24555 Lymphocytes/100 WBC (Bld) 13.8 % Low 20.0 - 45.0 [facility] Comment on above: Performed By: #### 2 06079 #### [facility],[address] [place] [address] MANUAL DIFF N/A Normal [facility] Comment on above: Performed By: #### 2 54439 #### [facility],[address] [place] [address] MCH (RBC) [Entitic mass] 30 pg Normal 27 - 33 [facility] Comment on above: Performed By: #### 2 85990 #### [facility],[address] [place] [address] MCHC 35 X10 3 Normal 32 - 36 [facility] Comment on above: Performed By: #### 2 71828 #### [place] [address] MCV (RBC) [Entitic vol] 87 fL Normal 81 - 98 [facility] Comment on above: Performed By: #### 2 76657 #### [facility],[address] [place] [address] Bonner # 0.58 x10EE3/UL Normal 0.20 - 1.00 [facility] Comment on above: Performed By: #### 2 88971 #### [facility],[address] [place] [address] MONOS % 5.6 % Normal 0.0 - 10.0 [facility] Comment on above: Performed By: #### 2 02160 #### [facility],[address] [place], [place] [phone] Morphology Cole (Bld) [Interp] N/A Normal [facility] Comment on above: Performed By: #### 2 41171 #### [facility],[address] [place] [address] Neut # 8.13 x10EE3/UL High 1.50 - 7.10 [facility] Comment on above: Performed By: #### 2 96595 #### [facility],[address] [place] [address] 83444 Neutrophils/100 WBC (Bld) 78.8 % High 46.0 - 76.0 [facility] Comment on above: Performed By: #### 2 08148 #### [facility],[address] [place] [address] 08599 PLATELET 323 x10EE3/UL Normal 150 - 450 [facility] Comment on above: Performed By: #### 2 20094 #### [facility],[address] [place] [address] 30737 Platelet mean volume (Bld) [Entitic vol] 7.2 fL Normal 6.4 - 10.5 [facility] Comment on above: Result Comment: AUTO MATED DIFFERENTIAL Performed By: #### 2 38323 #### [facility],[address] [place] [address] 47648 RBC 5.48 x 10EE6/UL Normal 4.50 - 6.00 [facility] Comment on above: Performed By: #### 2 19551 #### [facility],[address] [place] [address] 51180 WBC 10.3 x 10EE3/UL Normal 4.5 - 10.8 [facility] Comment on above: Performed By: #### 2 81794 #### [facility],[address] [place] [address] 47189 CMP with eGFRon 10-13-2024 AGE 58 years Normal [facility] Comment on above: Performed By: #### 2 08252 #### [facility],[address] [place] [address] 29633 Albumin [Mass/Vol] 4.0 g/dL Normal 3.4 - 5.0 [facility] Comment on above: Performed By: #### 2 86899 #### [address] [address] Albumin/Globulin [Mass ratio] 1.1 {ratio} Normal 0.9 - 1.6 [facility] Comment on above: Performed By: #### 2 49283 #### [facility],[address] [place] [address] 94632 ALK PHOS 94 U/L Normal 46 - 116 [facility] Comment on above: Performed By: #### 2 31330 #### [facility],[address] [place] [address] 01040 ALT [Catalytic activity/Vol] 28 U/L Normal 16 - 63 [facility] Comment on above: Performed By: #### 2 70407 #### [facility],[address] [place] [address] 39226 Anion gap [Moles/Vol] 14 mmol/L Normal 10 - 20 [facility] Comment on above: Performed By: #### 2 67307 #### [facility],[address] [place] [address] 73096 AST [Catalytic activity/Vol] 16 U/L Normal 15 - 37 [facility] Comment on above: Performed By: #### 2 15278 #### [facility],[address] [place] [address] 50668 B/C RATIO 13 ratio Normal 0 - 30 [facility] Comment on above: Performed By: #### 2 43458 #### [facility],[address] [place] [address] 38293 Bilirubin [Mass/Vol] 0.6 mg/dL Normal 0.2 - 1.0 [facility] Comment on above: Performed By: #### 2 31540 #### [facility],[address] [place] [address] 37831 Calcium [Mass/Vol] 9.1 mg/dL Normal 8.5 - 10.1 [facility] Comment on above: Performed By: #### 2 87208 #### [facility],[address] [place] [address] 40356 Chloride [Moles/Vol] 101 mmol/L Normal 98 - 107 [facility] Comment on above: Performed By: #### 2 08482 #### [facility],[address] [place] [address] 39634 CMP with eGFR Normal [facility] Comment on above: Result Comment: COMP REHENSIVE METABOLIC PANEL Performed By: #### 2 91329 #### [facility],[address] [place], [place] [phone] CO2 [Moles/Vol] 24.6 mmol/L Normal 21.0 - 32.0 [facility] Comment on above: Performed By: #### 2 03086 #### [facility],[address] [place] [address] Creatinine [Mass/Vol] 1.07 mg/dL Normal 0.70 - 1.30 [facility] Comment on above: Performed By: #### 2 27904 #### [facility],[address] [place] [address] GFR/1.73 sq M.predicted among non-blacks MDRD (S/P/Bld) [Vol rate/Area] mL/min/{1.73_m2} Normal 60 - 999 [facility] Comment on above: Performed By: #### 2 82539 #### [facility],[address] [place] [address] Result Comment: ACCO RDING TO THE NATIONAL KIDNEY DISEASE EDUCATION PROGRAM(NKDE), A NORMAL eGFR IS A VALUE GREATER THAN OR EQUAL TO 60 ML/MIN/1.73 SQ METERS. CHRONIC KIDNEY DISEASE: <60mL/MIN/1.73 SQ METERS KIDNEY FAILURE: <15mL/MIN/1.73 SQ METERS THIS TEST SHOULD ONLY BE USED FOR PATIENTS 18 YEARS OF AGE AND OLDER. Globulin (S) [Mass/Vol] 3.7 g/dL Normal 1.5 - 3.8 [facility] Comment on above: Performed By: #### 2 41028 #### [facility],[address] [place], [place] [phone] Glucose [Mass/Vol] 165 mg/dL High 74 - 106 [facility] Comment on above: Performed By: #### 2 00217 #### [facility],[address] [place] [address] 05657 Potassium [Moles/Vol] 3.7 mmol/L Normal 3.5 - 5.1 [facility] Comment on above: Performed By: #### 2 70041 #### [facility],[address] [place] [address] 13540 Protein [Mass/Vol] 7.7 g/dL Normal 6.4 - 8.2 [facility] Comment on above: Performed By: #### 2 57386 #### [facility],[address] [place] [address] 56710 Sodium [Moles/Vol] 136 mmol/L Normal 136 - 145 [facility] Comment on above: Performed By: #### 2 61098 #### [facility],[address] [place] [address] 77330 Urea nitrogen [Mass/Vol] 14 mg/dL Normal 7 - 18 [facility] Comment on above: Performed By: #### 2 66588 #### [facility],[address] [place] [address] 12161 ED MED ADMINISTRATION DETAIL on 10-13-2024 ED MED ADMINISTRATION DETAIL Demolition Worker [place] [address] [id number] 10/13/2024 Patient: MICHAEL MEJIA Sex: Male : [...] 03:13 Kulwinder Kelly R.N. 1 of 2 Demolition Worker Medication Ordered Medication Administration Date/Time Ondansetron IVP [...] Kulwinder Kelly R.N. 2 of 2 Normal [facility] ED NURSES CLINICAL NOTEon ED NURSES CLINICAL NOTE Nurse Narrative Nurse Clinical Narrative [address] [place] [address] [id number] 10/13/2024 02:43:00 Patient: MICHAEL MEJIA Sex: Male [...] had nausea, vomiting and abdominal pain. 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 SEPSIS SCREEN: NEGATIVE. SIRS criteria negative. [...] TABLET BY MOUTH DAILY -- 03:10/13/24 CAYDEN Kelly R.N. 02:45 10/13/24. Preferred Pharmacy: ([facility]). [...] EDT Leonor (more content not included)... Normal [facility] ED ORDER SHEET (CPOE ONLY)on 10-13-2024 ED ORDER SHEET (CPOE ONLY) Order Sheet Order Sheet [address] [place] [address] [id number] 10/13/2024 Patient: MICHAEL MEJIA Sex: Male : [...] minutes Amy Bowden Charles Wilbur, R.N. R.N. Audience Coordinator 02:50 10/13/2024 02:58 10/13/2024 03:17 10/13/2024 Amy Bowden Charles Wilbur, R.N. R.N. 3 of 4 Order Sheet Oxygen titrate to 92% 02:50 10/13/2024 02:59 10/13/2024 03:17 10/13/2024 Amy Bowden Charles Wilbur, R.N. R.N. [Electronically signed by Benja Mcguire D.O. (10/13/2024 07:02 EDT)] 4 of 4 Normal [facility] ED PHYSICIAN CLINICAL REPORT on 10-13-2024 ED PHYSICIAN CLINICAL REPORT Narrative Physician Clinical Narrative [address] [address] [id number] 10/13/2024 02:43:00 Patient: MICHAEL MEJIA Sex: Male [...] MPV 7.2 (more content not included)... Normal [facility] ED SUPER BILLon 10-13-2024 ED SUPER BILL [facility] [address] [place] [address] [id number] 10/13/2024 Patient: MICHAEL MEJIA Sex: Male : 1965 Age: 58y Item Facility Professional Category Description Code Code Quantity Fee Total Drugs Normal Saline 266262 1 $0.00 $0.00 1000cc (488083) Nurse/E/M EMERGENCY 516170 1 $0.00 $0.00 DEPARTMENT VISIT HIGH/URGENT SEVERITY (35418-92) Nurse/IV/IM/Infusions Hydration 358269 1 $0.00 $0.00 additional hour (95676) Nurse/IV/IM/Infusions IVP additional 607603 2 $0.00 $0.00 push (83623) Nurse/IV/IM/Infusions IVP initial [id number] 1 $0.00 $0.00 (99677) Grand Total $0.00 Providers Benja Mcguire D.O. 1 of 2 Superbil Chief Complaint ABDOMINAL PAIN. Principal Diagnosis Acute left upper quadrant abdominal pain. Acute irritable bowel syndrome with abdominal pain. No diarrhea. ICD-10 Codes R10.12: Left upper quadrant pain K58.9: Irritable bowel syndrome, unspecified 2 of 2 Normal [facility] ED VISIT SUMMARYon ED VISIT SUMMARY Visit Overview Visit Overview [address] [place] [address] [id number] 10/13/2024 Patient: MICHAEL MEJIA Sex: Male : [...] QUADRANT ABDOMINAL PAIN 3 of 3 Normal [facility] ED VITALS FLOW SHEETon 10-13 ED VITALS FLOW SHEET Vitals Vital Sign Flow Sheet [address] [place] [address] [id number] 10/13/2024 Patient: MICHAEL MEJIA Sex: Male : [...] 191/116 165 72 3 of 3 Normal [facility] LACTATEon 10-13-2024 Lactate [Moles/Vol] 2.0 mmol/L Normal 0.4 - 2.0 [facility] Comment on above: Performed By: #### 2 50869 #### [facility],[address] [place] [address] LIPASEon 10-13-2024 Lipase [Catalytic activity/Vol] 32.0 U/L Normal 15.0 - 78.0 [facility] Comment on above: Result Comment: *PLE ASE NOTE THAT RANGES FOR LIPASE HAVE CHANGED OF 03/19/23 DUE TO AN ASSAY UPDATE BY THE TRIAL JUDGE.THE NEW ASSAY RANGE IS 6-250 U/L, WITH A REFERENCE RANGE OF 16-77 U/L. Performed By: #### 2 10660 #### [facility],[address] [place] [address] NT-proBNPon 10-13-2024 Natriuretic peptide B (Bld) [Mass/Vol] 106 pg/mL Normal 0 - 125 [facility] Comment on above: Performed By: #### 2 13520 #### [facility],[address] [place], [place] [phone] TROPONINon 10-13-2024 HS TROPONIN <4.0 Normal 0.0 - 76.2 [facility] Comment on above: Performed By: #### 2 25833 #### [facility],[address] [place], [place] [id number] URINALYSISon 10-13-2024 Amorphous NONE Normal [facility] Comment on above: Performed By: #### 2 52520 #### [facility],[address] [place] [address] 56955 Bacteria NONE Normal [facility] Comment on above: Performed By: #### 2 94588 #### [facility],[address] [place] [address] 28663 Bilirubin Ql (U) Negative Normal NORMAL: NEGATIVE [facility] Comment on above: Performed By: #### 2 14692 #### [facility],[address] [place] [address] 41348 Casts NONE Normal [facility] Comment on above: Performed By: #### 2 10814 #### [facility],[address] [place] [address] 55919 Clarity (U) clear Normal NORMAL: CLEAR [facility] Comment on above: Performed By: #### 2 15490 #### [facility],[address] [place] [address] 64555 Color (U) yellow Normal NORMAL: YELLOW [facility] Comment on above: Performed By: #### 2 67007 #### [facility],[address] [place] [address] 55073 Crystals LM Nom (Urine sed) NONE Normal [facility] Comment on above: Performed By: #### 2 87494 #### [facility],[address] [place] [address] 23418 Epi Cells NONE Normal [facility] Comment on above: Performed By: #### 2 72248 #### [facility],[address] [place] [address] 11518 Glucose Ql (U) NORM Normal NORMAL: NORMAL [facility] Comment on above: Performed By: #### 2 96958 #### [facility],[address] [place] [address] 10964 Hemoglobin Ql (U) 10 Abnormal NORMAL: NEGATIVE [facility] Comment on above: Performed By: #### 2 03057 #### [facility],[address] [place] [address] 70260 Ketone 5 Abnormal NORMAL: NEGATIVE [facility] Comment on above: Performed By: #### 2 59884 #### [facility],[address] [place] [address] 35217 Leukocytes Negative Normal NORMAL: NEGATIVE [facility] Comment on above: Performed By: #### 2 79562 #### [facility],[address] [place], [place] [phone] Mucous NONE Normal [facility] Comment on above: Performed By: #### 2 56035 #### [facility],[address] [place] [address] Nitrite Ql (U) Negative Normal NORMAL: NEGATIVE [facility] Comment on above: Performed By: #### 2 31808 #### [facility],[address] [place] [address] pH (U) 7 [pH] Normal NORMAL: 5.0-8.0 [facility] Comment on above: Performed By: #### 2 10481 #### [facility],[address] [place] [address] Protein Ql (U) Negative Normal NORMAL: NEGATIVE [facility] Comment on above: Performed By: #### 2 90334 #### [facility],[address] [place] [address] 39327 Rbc 0-5 Normal 0-3/hpf [facility] Comment on above: Performed By: #### 2 14447 #### [facility],[address] [place], [place] [phone] Sp [place] 1.010 Normal NORMAL: 1.010-1.030 [facility] Comment on above: Performed By: #### 2 32236 #### [facility],[address] [place], [place] [phone] Specimen Type R Normal [facility] Comment on above: Performed By: #### 2 75698 #### [facility],[address] [place] [address] Urinalysis dipstick W Reflex Microscopic panel (U) SEE BELOW Normal [facility] Comment on above: Result Comment: MICR OSCOPIC Performed By: #### 2 89131 #### [facility],[address] [place] [address] Urobilinog NORM Normal NORMAL: NORMAL [facility] Comment on above: Performed By: #### 2 57956 #### [place] [address] Wbc NONE Normal 0-5/hpf [facility] Comment on above: Performed By: #### 2 62699 #### [facility],[address] [place] [address] Yeast NONE Normal [facility] Comment on above: Performed By: #### 2 58684 #### [place] [address] HGB A1C [CCL]on 09-03-2019 HbA1c (Bld) [Mass fraction] 111 mg/dL Normal [facility] Comment on above: Result Comment: eAG: (Estimated average glucose) is a calculated value from HgbA1c and is telephone service representative of the average blood glucose level in the last 2-3 month period. [facility] [address] [place] [address] Benny Mckeon III, M.D. [id number] Performed By: #### 2 35459 #### [place] [address] HbA1c (Bld) [Mass fraction] 5.5 % Normal 4.3-5.6 [facility] Comment on above: Result Comment: Amer ican Diabetes Association guidelines indicate that patients with HgbA1c in the range 5.7-6.4% are at increased risk for development of diabetes, and intervention by lifestyle modification may be beneficial. HgbA1c greater or equal to 6.5% is considered diagnostic of diabetes. Performed By: #### 2 27883 #### [place] [address] Hemoglobin A1con 09-03-2019 HbA1c (Bld) [Mass fraction] 5.5 % Normal 4.3-5.6 [facility] Comment on above: Performed By: #### H BA1C #### [facility] [address] [place], [place] [address] HbA1c (Bld) [Mass fraction] 111 mg/dL Normal [facility] Comment on above: Performed By: #### H BA1C #### [facility] [address] [place], [place] [address] CMP with eGFRon 09-01-2019 Age - Reported 53 years Normal [facility] Comment on above: Performed By: #### 2 62484 #### [facility],[address] [place] [address] 74557 Albumin [Mass/Vol] 4.5 g/dL Normal 3.4 - 4.8 [facility] Comment on above: Performed By: #### 2 10369 #### [facility],[address] [place] [address] 60961 Albumin/Globulin [Mass ratio] 1.7 {ratio} High 0.9 - 1.6 [facility] Comment on above: Performed By: #### 2 62771 #### [facility],[address] [place] [address] 44244 ALK PHOS 71 U/L Normal 38 - 126 [facility] Comment on above: Performed By: #### 2 86897 #### [facility],[address] [place] [address] 03435 ALT/SGPT 18 U/L Normal 10 - 40 [facility] Comment on above: Performed By: #### 2 47353 #### [facility],[address] [place] [address] 78001 Anion gap [Moles/Vol] 10 mmol/L Normal 10 - 20 [facility] Comment on above: Performed By: #### 2 88807 #### [facility],[address] [place] [address] 71758 AST/SGOT 19 U/L Normal 13 - 39 [facility] Comment on above: Performed By: #### 2 78336 #### [facility],[address] [place] [address] 88508 B/C RATIO 21 ratio Normal 0 - 30 [facility] Comment on above: Performed By: #### 2 76830 #### [facility],[address] [place] [address] 02200 Bilirubin [Mass/Vol] 0.3 mg/dL Normal 0.0 - 1.5 [facility] Comment on above: Performed By: #### 2 88929 #### [facility],[address] [place] [address] 98437 Calcium [Mass/Vol] 9.5 mg/dL Normal 8.6 - 10.2 [facility] Comment on above: Performed By: #### 2 89958 #### [facility],[address] [place] [address] 42847 Chloride [Moles/Vol] 104 mmol/L Normal 98 - 107 [facility] Comment on above: Performed By: #### 2 52318 #### [facility],[address] [place] [address] 10915 CO2 [Moles/Vol] 29.0 mmol/L Normal 21.0 - 31.0 [facility] Comment on above: Performed By: #### 2 28047 #### [facility],[address] [place] [address] 22272 Creatinine [Mass/Vol] 1.0 mg/dL Normal 0.7 - 1.3 [facility] Comment on above: Performed By: #### 2 65647 #### [facility],[address] [place] [address] 72541 GFR/1.73 sq M predicted among non-blacks MDRD (S/P/Bld) [Vol rate/Area] mL/min/{1.73_m2} Normal 60 - 999 [facility] Comment on above: Performed By: #### 2 54218 #### [address] [address] Result Comment: ACCO RDING TO THE NATIONAL KIDNEY DISEASE EDUCATION PROGRAM(NKDE), A NORMAL eGFR IS A VALUE GREATER THAN OR EQUAL TO 60 ML/MIN/1.73 SQ METERS. CHRONIC KIDNEY DISEASE: <60mL/MIN/1.73 SQ METERS KIDNEY FAILURE: <15mL/MIN/1.73 SQ METERS THIS TEST SHOULD ONLY BE USED FOR PATIENTS 18 YEARS OF AGE AND OLDER. GFR/1.73 sq M predicted among non-blacks MDRD (S/P/Bld) [Vol rate/Area] Normal [facility] Comment on above: Result Comment: COMP REHENSIVE METABOLIC PANEL Performed By: #### 2 29542 #### [address] [address] Globulin (S) [Mass/Vol] 2.6 g/dL Normal 1.5 - 3.8 [facility] Comment on above: Performed By: #### 2 72138 #### [address] [address] Glucose [Mass/Vol] 99 mg/dL Normal 74 - 106 [facility] Comment on above: Performed By: #### 2 80464 #### [address] [address] Potassium [Moles/Vol] 4.3 mmol/L Normal 3.5 - 5.1 [facility] Comment on above: Performed By: #### 2 29690 #### [address] [address] Protein [Mass/Vol] 7.1 g/dL Normal 6.4 - 8.3 [facility] Comment on above: Performed By: #### 2 63170 #### [address] [address] Sodium [Moles/Vol] 139 mmol/L Normal 136 - 145 [facility] Comment on above: Performed By: #### 2 62561 #### [facility],[address] [place] [address] 61258 Urea nitrogen [Mass/Vol] 21 mg/dL High 6 - 20 [facility] Comment on above: Performed By: #### 2 15398 #### [facility],[address] [place] [address] 25183 Vital Signs Date Time Vital Sign Value Performing Clinician Faci lity 01-03-2025 12:53-0400 Body temperature 97.5 [degF] Dr. Beryl Harrison DO Work Phone: [facility] 01-03-2025 12:53-0400 Diastolic blood pressure 78 mm[Hg] Dr. Beryl Harrison DO Work Phone: [facility] 01-03-2025 12:53-0400 Heart rate 59 /min Dr. Beryl Harrison DO Work Phone: [facility] 01-03-2025 12:53-0400 Respiratory rate 14 /min Dr. Beryl Harrison DO Work Phone: [facility] 01-03-2025 12:53-0400 SaO2% (BldA) [Mass fraction] 99 % Dr. Beryl Harrison DO Work Phone: [facility] 01-03-2025 12:53-0400 Systolic blood pressure 117 mm[Hg] Dr. Beryl Harrison DO Work Phone: [facility] 01-03-2025 10:27-0400 Body height 180.[address] Beryl Harrison DO Work Phone: [facility] 01-03-2025 10:27-0400 Body mass index (BMI) [Ratio] 30.4 kg/m2 Dr. Beryl Harrison DO Work Phone: [phone] [place] [address] 01-03-2025 10:27-0400 Body weight [address] Beryl Harrison DO Work Phone: [facility] 11-27-2024 11:57-0400 Body height 180.[address] Beryl Harrison DO Work Phone: [facility] 11-10-2024 12:52-0400 Body temperature 98.3 [degF] Dr. Beryl Harrison DO Work Phone: [facility] 11-10-2024 12:52-0400 Diastolic blood pressure 70 mm[Hg] Dr. Beryl Harrison DO Work Phone: [phone] [place] [address] 11-10-2024 12:52-0400 Heart rate 74 /min Dr. Beryl Harrison DO Work Phone: [phone] [place] [address] 11-10-2024 12:52-0400 Respiratory rate 18 /min Dr. Beryl Harrison DO Work Phone: [facility] 11-10-2024 12:52-0400 SaO2% (BldA) [Mass fraction] 97 % Dr. Beryl Harrison DO Work Phone: [facility] 11-10-2024 12:52-0400 Systolic blood pressure 111 mm[Hg] Dr. Beryl Harrison DO Work Phone: [facility] 11-09-2024 13:46-0400 Body height 180.[address] Beryl Harrison DO Work Phone: [facility] 11-09-2024 13:46-0400 Body weight 97.[address] Beryl Harrison DO Work Phone: [facility] 11-09-2024 10:45-0400 Inhaled oxygen flow rate 2 L/min Dr. Beryl Harrison DO Work Phone: [facility] 11-05-2024 16:34-0400 Body mass index (BMI) [Ratio] 29.9 kg/m2 Dr. Beryl Harrison DO Work Phone: [facility] Encounters Encounter Date Encounter Type Care Provider Facility Start: 01-03-2025 Non-patient / Non-visit Dr. Osvaldo Hale MD -[facility] Work Phone: Start: 01-03-2025 End: 01-03-2025 Admission to same day surgery center Tim Trevor DO -Endoscopy Work Phone: Start: 01-03-2025 End: 01-03-[address] Beryl Harrison DO Work Phone: -Endoscopy Start: 11-28-2024 End: 11-28-2024 Patient encounter procedure Eleanor THOMAS -[facility] Work Phone: Start: 11-28-2024 End: 11-28-[address] Beryl Harrison DO Work Phone: -[facility] Start: 11-23-2024 End: 11-23-2024 Patient encounter procedure Evette Ochoa PA-C -[facility] Work Phone: Start: 11-23-2024 End: 11-23-[address] Beryl Harrison DO Work Phone: -[facility] Start: 11-10-2024 Non-patient / Non-visit Dr. Micky Meadows DO -[facility] Work Phone: Start: 11-09-2024 Non-patient / Non-visit Dr. Micky Meadows DO [facility] Work Phone: Start: 11-09-2024 Non-patient / Non-visit Dr. Boston Williamson [facility] Start: 11-08-2024 Non-patient / Non-visit Dr. Micky Meadows DO [facility] Work Phone: Start: 11-08-2024 Non-patient / Non-visit Evette Ochoa PA-C [facility] Start: 11-07-2024 Non-patient / Non-visit Dr. Micky Meadows [facility] Work Phone: Start: 11-07-2024 Non-patient / Non-visit Tim Murray [facility] Start: 11-07-2024 Non-patient / Non-visit Dr. Boston Williamson MD [facility] Start: 11-06-2024 Non-patient / Non-visit Dr. Micky Meadows [facility] Work Phone: Start: 11-06-2024 Non-patient / Non-visit Timmanisha Murray [facility] Start: 11-06-2024 Non-patient / Non-visit Dr. Boston Williamson MD [facility] Start: 11-06-2024 ambulatory Osvaldo Hale Facility:[facility] Start: 11-06-2024 Non-patient / Non-visit Dr[facility] Osvaldo Hale [facility] Work Phone: Start: 11-05-2024 End: 11-10-2024 Evaluation and management of inpatient Dr. Micky Meadows [facility] Work Phone: Start: 11-05-2024 Non-patient / Non-visit Dr. 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 [facility] Start: 11-02-2024 End: 11-02-2024 ambulatory TRUPTI [facility] Start: 10-13-2024 End: 10-13-2024 Emergency department patient visit TRUPTI [facility] Start: 09-01-2019 End: 09-01-2019 Patient encounter procedure BERYL SIM [facility] Procedures Date Procedure Procedure Detail Performing [...] Result Comment: URINALYSIS Performed By: #### 2 [id number] #### [place] [address] Start: 10-13-2024 Urinalysis TRUPTI PAINTER Comment on above: Result Comment: URINALYSIS Performed By: #### 2 96668 #### [place] [id number] History of cholecystectomy S/P cholecyste ctomy Evette Ochoa PA-C Comment on above: 11/09/2024 History of cholecystectomy S/P cholecyste ctomy Eleanor THOMAS Plan of Treatment Date Care Activity Detail Author Start: 01-03-2025 Anesthesia upper gi endoscopic px ercp ANES UPR GI NDSC PX ERCP [facility] Start: 01-03-2025 Ercp remove calculi/debris biliary/pancreas duct ERCP REMOVE DUCT CALCULI [facility] Start: 01-03-2025 Ercp remove foreign body/stent biliary/panc duct ERCP REMOVE FORGN BODY DUCT [facility] Start: 01-03-2025 Ercp w/sphincterotomy/papillot simona ENDO CHOLANGIOPANCREATOGRAPH [facility] Start: 01-03-2025 Patient discharge [facility] Start: 11-10-2024 Patient discharge [facility] Start: 11-09-2024 Oxygen therapy [facility] Start: 11-08-2024 Preoperative care [facility] Start: 11-06-2024 Following clinical pathway protocol [facility] Start: 11-05-2024 Application of intermittent pneumatic compression device [facility] Start: 11-05-2024 Referral to gastroenterology service [facility] Start: 11-05-2024 Referral to general surgeon [facility] Start: 11-05-2024 Admission procedure [facility] Start: 11-05-2024 Assessment of risk of venous thromboembolism [facility] Start: 11-05-2024 Insertion of catheter into peripheral vein [facility] Start: 11-05-2024 Providing care according to standard [facility] Start: 11-05-2024 Provision of activity privileges [facility] Start: 11-05-2024 [facility] Start: 11-05-2024 Following clinical pathway protocol [facility] Start: 11-05-2024 Patient referral to dietitian [facility] Payers Date Payer Category Payer Medicaid [id number] 2024 Medicare [id number] 2024 Self-pay 1965 Unknown [id number] 2.16.8 40.1.851478.3.579.2.651 1965 Unknown [id number] 2.16.8 40.1.529194.3.579.2.651 1965 Unknown [id number] 2.16.8 40.1.602375.3.579.2.651 1965 Unknown [id number] 2.16. 40.1.317843.3.579.2.651 Unknown [id number] Unknown [id number] 2.16.8 40.1.180250.3.579.2.462 Unknown [id number] 2.16.8 40.1.050677.3.579.2.462 Unknown [id number] 2.16.8 40.1.042087.3.579.2.462 Unknown [id number] 2.16.8 40.1.514205.3.579.2.462 Unknown [id number] 2.16.8 40.1.034494.3.579.2.462 Unknown [id number] 2.16.8 40.1.590771.3.579.2.462 Unknown [id number] 2.16.8 40.1.377423.3.579.2.462 Unknown [id number] 2.16.8 40.1.383113.3.579.2.462 Unknown [id number] 2.16.8 40.1.015339.3.579.2.462 Unknown [id number] 2.16.8 40.1.136755.3.579.2.462 Unknown [id number] 2.16.8 40.1.500573.3.579.2.462 Unknown [id number] 2.16.8 40.1.190218.3.579.2.462 Unknown [id number] 2.16.8 40.1.484171.3.579.2.462 Unknown [id number] 2.16.8 40.1.388863.3.579.2.462 Unknown [id number] 2.16.8 40.1.503206.3.579.2.462 Unknown [id number] 2.16.8 40.1.868081.3.579.2.462 Unknown [id number] 2.16.8 40.1.024430.3.579.2.462 Unknown [id number] 2.16.8 40.1.415146.3.579.2.462 Social History Date Type Detail Facility Start: 11-08-2024 End: 11-28-2024 Tobacco smoking status NHIS Ex-smoker (finding) [facility] Start: 1965 Sex Assigned At Male [facility] Start: 01-01-2025 Tobacco smoking stat us MDIS Smokes tobacco daily (finding) [facility] Sex Male [facility] Medical Equipment Procedure Code Equipment Code Equipment Original Text Equipment Identifier Dates Total cholecystectomy with exploration of common bile duct Ligation clip, synthetic polymer, non-bioabsorbable [id number] FDA Start: 11-09-2024 Total cholecystectomy with exploration of common bile duct Ligation clip, synthetic polymer, non-bioabsorbable ()[id number] FDA Start: 11-09-2024 ERCP (endoscopic retrograde cholangiopancreatograph [...] 11-10-2024 Functional status Ambulates;Stand and piv ot [facility] Work Phone: Mental Status Date Assessment Result Facility 01-03-2025 Cognitive function Voice/Name [facility] Work Phone: 11-10-2024 Cognitive function Voice/Name [facility] Work Phone: Clinical Notes 11-05-2024 to 01-03-2025 Note Date & Type Note Facility 01-03-2025 Consult note [facility] 01-03-2025 Procedure note [facility] 01-03-2025 Procedure note [facility] 01-03-2025 Radiology Diagnostic study note [facility] Imaging Services [address] [place] [address] ERCP Biliary/Pancreas MR#: [id number] Acct: [id number] Name: MICHAEL MEJIA Rep #: [id number] : 1965 M 59 From: Andreas Ballard MD PCP: SANDRINE Walker Status: DEP S DC Study:ERCP Biliary/Pancreas Date of Exam: 01/03/25 Exam# [id number] Ordering Dr: Abigail Murray DO PROCEDURE: ERCP [...] Removal of the biliary stent. Reading Location: [place] [address] CC: WARP DYEING VAT TENDER-C Trupti Painter; DO Tracy Conrad Salt Cutter: Signed [facility] 01-03-2025 Consult note Note Date/Time January 03, 2025 11:04am [facility] Medical Records Department [address] [place] [address] Pre-Anesthesia Evaluation 01/03/25 1057 MR#: [id number] Acct: [id number] Name: MICHAEL MEJIA Rep #:[id number] : 1965 59 From: Manas Painting PCP: SANDRINE Walker Status:REG S DC Y Race: C Location: AC AC11-1 ASA Classification* ASA Classification ASA Classification: 3 (The patient states that strenuous activity getting short of breath. 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 Hx Hospitalization Yes 01/01/25 10:56 Any [...] take am of surgery PONV PONV - 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 technician: PONV - 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 technician Female No 01/01/25 10:56 HX of [...] 01/03/25 10:27 Respiratory Assessment Respiratory Assessment - 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 technician: Respiratory Tract Infection Hx - 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 technician Hx Respiratory Tract Infection No 01/01/25 10:56 STOP Sleep Apnea STOP Sleep Apnea - 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 technician: STOP Sleep Apnea - 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 technician Hx Hypertension Yes: CONTROLLED ON MED [...] Tobacco Use History Tobacco Use History - 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 technician: Tobacco Use History - 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 technician Tobacco Use Smoking Status Current every day smoker 01/01/25 10:56 Hx Tobacco Use Yes 01/01/25 10:56 Years Smoking Packs Smoked per Day Smoking Cessation Date was within the last 15 years Hx Smoking Cessation Date Hx Smoking Cessation Counseling Hematologic Medial History Hematologic Hx - 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 technician: 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 Hx of Blood Transfusion No 01/01/25 10:56 [...] confused, unrespo /Reproduction History /Reproductive History - 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 technician: /Reproductive Hx- 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 technician Hx Now No 01/01/25 10:56 Gestational [...] MD Cosigner Signature: Date CC: ~ Signed [facility] Work Phone: 1(270) 136-483110-15-2025 History and physical note Author Tim Friend [facility] Note Date/Time January 03, 2025 1 0:13am [facility] Medical Records Department [address] [place] [address] History & Physical Exam 01/03/25 1012 MR#: [id number] Acct: [id number] Name: MICHAEL MEJIA Rep #:[id number] : 1965 59 From: Tim Murray DO PCP: SLIM WalkerC Status:REG S DC Location: [place] [address] HPI - General General Date of Admission: 01/03/25 Date of Service: 01/03/25 Chief Complaint: Biliary stent removal HPI Narrative MICHAEL MEJIA, is a 59 M who presents [ Chief Complaint: Status post ERCP and cholecystectomy [facility] admission 11.05.24-11.12.24 with suspected choledocholithiasis transferred from [...] pain and has been feeling well. ] [facility] Medical History Wears glasses DVT (deep [...] Murray DO> Cosigner Signature (if applicable): CC: SANDRINE Painter; Tim Murray DO~ Signed [facility] Work Phone: 1(886) 300-647810-15-2025 Consult [address] [facility] Medical Records Department [address] [place] [address] Pre-Anesthesia Evaluation 01/03/25 1057 MR#: [id number] Acct: [id number] Name: MICHAEL MEJIA Rep #:[id number] : 1965 59 From: Manas Painting PCP: Trupti Painter WARP DYEING VAT TENDER-C Status:REG S DC Y Race: C Location: [place] [address] ASA Classification* ASA Classification ASA Classification: 3 (The patient states that strenuous activity getting short of breath. 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 Hx Hospitalization Yes 01/01/25 10:56 Any [...] take am of surgery PONV PONV - 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 technician: PONV - 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 technician Female No 01/01/25 10:56 HX of [...] 01/03/25 10:27 Respiratory Assessment Respiratory Assessment - 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 technician: Respiratory Tract Infection Hx - 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 technician Hx Respiratory Tract Infection No 01/01/25 10:56 STOP Sleep Apnea STOP Sleep Apnea - 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 technician: STOP Sleep Apnea - 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 technician Hx Hypertension Yes: CONTROLLED ON MED [...] Tobacco Use History Tobacco Use History - 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 technician: Tobacco Use History - 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 technician Tobacco Use Smoking Status Current every day smoker 01/01/25 10:56 Hx Tobacco Use Yes 01/01/25 10:56 Years Smoking Packs Smoked per Day Smoking Cessation Date was within the last 15 years Hx Smoking Cessation Date Hx Smoking Cessation Counseling Hematologic Medial History Hematologic Hx - 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 technician: 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 Hx of Blood Transfusion No 01/01/25 10:56 [...] confused, unrespo /Reproduction History /Reproductive History - 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 technician: /Reproductive Hx- 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 technician Hx Now No 01/01/25 10:56 Gestational [...] MD Cosigner Signature: Date CC: ~ Signed [place] [address]-15-2025 History and physical note [facility] Medical Records Department [address] [place] [address] History & Physical Exam 01/03/25 1012 MR#: [id number] Acct: [id number] Name: MICHAEL MEJIA Rep #:[id number] : 1965 59 From: Tim Murray DO PCP: Trupti Painter NP-C Status:REG S DC Location: [place] [address] HPI - General General Date of Admission: 01/03/25 Date of Service: 01/03/25 Chief Complaint: Biliary stent removal HPI Narrative MICHAEL MEJIA, is a 59 M who presents [ Chief Complaint: Status post ERCP and cholecystectomy [facility] admission 8.-8 with suspected choledocholithiasis transferred from [...] pain and has been feeling well. ] [facility] Medical History Wears glasses DVT (deep [...] CC: SANDRINE Painter; Tim Murray DO~ Signed [facility]10-15-2025 [facility] Medical Records Department [address] [place] [address] History Physical Exam 01/03/25 1012 MR#: [id number] Acct: [id number] Name: MICHAEL MEJIA Rep #: [id number] : 1965 59 From: Tim Murray DO PCP: SANDRINE Walker Status:REG [facility] Location: [place] [address] HPI - General General Date of Admission: 01/03/25 Date of Service: 01/03/25 Chief Complaint: Biliary stent removal HPI Narrative MICHAEL MEJIA, is a 59 M who presents [ Chief Complaint: Status post ERCP and cholecystectomy [facility] admission 11.05.24-11.12.24 with suspected choledocholithiasis transferred from [...] pain and has been feeling well. ] [facility] Medical History Wears glasses DVT (deep [...] (if applicable): CC: SANDRINE Painter; Tim Murray, [facility]08-22-2025 Note. MICRO - Microbiology PROCEDURE: Blood Culture [...] Locations *1: This test was performed at: [address], [facility] , [facility]08-22-2025 Note. MICRO - Microbiology PROCEDURE: Blood Culture [...] Locations *1: This test was performed at: [facility], [address] [place] [address], [address] , [facility] [id number] [facility] Medical Records Department [address] [place] [address] Discharge Summary 11/10/24 1213 MR#: [id number] Acct: [id number] Name: MICHAEL MEJIA . Rep #: [id number] : 1965 58 From: Micky Meadows DO PCP: Dr. Beryl Harrison DO Status:DIS IN Location: IA3 [id number] Providers Date of Admission: 11/05/24 Date of Discharge: 11/10/24 Primary Care Physician: Dr. Beryl Harrison, DO Consultations 11/05/24 17:33 Consult: Gastroenterology Routine Consulting Provider: [facility] Reason for Consult: jaundince, dilated CBD [...] 58-year-old white male was directly admitted to [facility] from an outside emergency room due to elevated bilirubin and jaundice. Patient was admitted to [place] [address], labs from the outside emergency room showed [...] Instructions: Leave operative ba (more content not included)...[facility]08-22-2025 Discharge summary [facility] Medical Records Department [address] [place] [address] Instructions for Home/Discharge Instructions 11/10/24 1207 MR#: [id number] Acct: [id number] Name: MEJIAMICHAEL Sr. Rep #:[id number] : 1965 58 From: Micky Meadows DO [...] DO; Dr. Kate Stark MD ~ Signed [facility]08-22-2025 Discharge summary [facility] Medical Records Department [address] [place] [address] Instructions for Home/Discharge Instructions 11/10/24 1154 MR#: [id number] Acct: [id number] Name: MEJIAMICHAEL Sr. Rep #:[id number] : 1965 58 From: Boston mckay MD [...] to schedule 2 week follow up appointment. [phone] Test Results: Test results from this visit [...] DO; Dr. Kate Stark MD ~ Signed [facility]08-22-2025 Progress note Author Micky Meadows [facility] Note Date/Time November 10, 2024 7: 44am [facility] Medical Records Department [address] [place] [address] Progress Note - Hospitalist 11/09/248 MR#: [id number] Acct: [id number] Name: MICHAEL MEJIA Sr. Rep #:[id number] : 1965 58 From: Micky Meadows DO PCP: Dr. Beryl Harrison DO Status:AD M IN [facility] Reason for Visit Chief Complaint: Abd pain [...] % (Auto) 63.5, Lymph % (Auto) 22.3, Bonner% (Auto) 7.8, Eos % (Auto) 4.3, Baso [...] obtained. Also, cholelithiasis is seen. Reading Location: [place] [address] Cholangiogram 11/09/24 07:45 IMPRESSION: Intraoperative fluoroscopy was performed for ERCP. Numerous fluoroscopic imageswere also obtained. Also, cholelithiasis is seen. Reading Location: [place] [address] Physical Exam Narrative alert, oriented x3, no [...] 35 minutes Charges/Coding Visit Charges Inpatient E&M: 40548 Subs Hosp L2 11/10/24 0744 <Electronically signed by Micky Meadows DO> Cosigner Signature (if applicable): CC: ~ Signed [facility] Work Phone: 1(245) 762-715508-22-2025 Progress note [facility] Medical Records Department [address] [place] [address] Progress Note - Hospitalist 11/09/24 1828 MR#: [id number] Acct: [id number] Name: MATEUSZMICHAEL A Sr. Rep #:[id number] : 1965 58 From: Micky Meadows DO PCP: Dr. Beryl Harrison DO Status:AD M IN Location: IA3 HL493-4 Reason for Visit Chief Complaint: Abd pain [...] Neut %(Auto) 63.5, Lymph % (Auto) 22.3, Bonner% (Auto) 7.8, Eos % (Auto) 4.3, Baso [...] obtained. Also, cholelithiasis is seen. Reading Location: [place] [address] Cholangiogram 11/09/24 07:45 IMPRESSION: Intraoperative fluoroscopy was performed for ERCP. Numerous fluoroscopic imageswere also obtained. Also, cholelithiasis is seen. Reading Location: [place] [address] Physical Exam Narrative alert, oriented x3, no [...] 35 minutes Charges/Coding Visit Charges Inpatient E&M: 76075 Subs Hosp L2 11/10/24 0744 Cosigner Signature (if applicable): CC: ~ Signed [facility]08-21-2025 Consult note Author Gurpreet Navarro [facility] Note Date/Time November 09, 2024 9: 24am [facility] Medical Records Department [address] [place] [address] Anesthesia Postop Eval I 11/09/24922 MR#: [id number] Acct: [id number] Name: MICHAEL MEJIA Sr. Rep #:[id number] : 1965 58 From: Gurpreet Navarro CRNA PCP: Dr. Beryl Harrison, DO Status:AD M IN Y Race: C Location: [place] [address] Anesthesia: Postop Eval I Current Vital Signs [...] CRNA Cosigner Signature: Date CC: ~ Signed [facility] Work Phone: 1(458) 224-880008-21-[address] Consult [address] [facility] Medical Records Department [address] [place] [address] Anesthesia Postop Eval I 11/09/24922 MR#: [id number] Acct: [id number] Name: MICHAEL MEJIA Sr. Rep #:[id number] : 1965 58 From: Gurpreet Navarro CRNA PCP: Dr. Beryl Harrison, DO Status:AD M IN Y Race: C Location: [place] [address] Anesthesia: Postop Eval I Current Vital Signs [...] Postop Eval 1 completed: Yes 11/09/2424 y [employer]ELV[employer] STE[employer]ER> Date _ Gurpreet Navarro CRNA Cosigner Signature: Date CC: ~ Signed [facility]08-21-2025 Consult note Author Garry issa [facility] Note Date/Time November 09, 2024 7: 23am [facility] Medical Records Department [address] [place] [address] Pre-Anesthesia Evaluation 11/09/24 0723 MR#: [id number] Acct: [id number] Name: MICHAEL MEJIA Sr. Rep #:[id number] : 1965 58 From: Garry Turner MD PCP: Dr. Beryl Harrison, DO Status:AD M IN Y Race: C Location: [address] ASA Classification* ASA Classification ASA Classification: [...] retrograde cholangiopancreatography Anesthesia History Anesthesia History - 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 technician: Anesthesia History - 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 technician Hx Hospitalization Any Problems With Anesthesia [...] take am of surgery PONV PONV - 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 technician: PONV - 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 technician Female HX of Motion Sickness HX of N/V After Surgery Non-Smoker Duration of Surgery greater than 60 minutes Number of Risk Factors PONV Score Height & Weight Height & Weight: Anesthesia: Height & Weight Height 5 ft 11 in 11/06/24 13:19 Weight: 97.5 kg 11/09/24 05:09 Body Mass Index (BMI) 29.9 11/05/24 16:34 Respiratory Assessment Respiratory Assessment - 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 technician: Respiratory Tract Infection Hx - 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 technician Hx Respiratory Tract Infection No 11/09/24 02:23 STOP Sleep Apnea STOP Sleep Apnea - 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 technician: STOP Sleep Apnea - 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 technician Hx Hypertension Yes 11/05/24 16:34 Hx [...] Tobacco Use History Tobacco Use History - 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 technician: Tobacco Use History - 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 technician Tobacco Use Smoking Status Former smoker 11/08/24 08:02 Hx Tobacco Use Yes 11/05/24 16:34 Years Smoking Packs Smoked per Day Smoking Cessation Date was No - quit smoking greater 11/05/24 16:34 within the last 15 years than 15 years ago Hx Smoking Cessation Date Hx Smoking Cessation Counseling Hematologic Medial History Hematologic Hx - 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 technician: 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[id number] PRN Saline Flush Sodium Chloride 250 mls @ 15 mls/hr 11/06/24 17:23 IV .[id number] PRN Additional IVPB Infusion Sodium Chloride 1,000 [...] MD Cosign Signature: Date CC: ~ Signed [facility] Work Phone: 1(504) 503-264808-21-2025 Procedure note [facility] Medical Records Department [facility] [place] [address] Operative Report 11/09/24903 MR#: [id number] Acct: [id number] Name: MICHAEL MEJIA Sr. Rep #:[id number] : 1965 58 From: Boston mckay MD PCP: Dr. Beryl Harrison, DO Status:AD M IN Location: [place]3 TX575-8 Operative Report (Standard) Operative Information Date of Procedure: 11/09/24 Pre-Operative Diagnosis: Choledocholithiasis with acute cholecystitis Post-Operative Diagnosis: Same Surgery/Procedure Performed: Laparoscopic cholecystectomy with cholangiograms acetylene cutter: Yes Promotional Marketing Analyst: Vandana Gamboa Tasks completed by first coat sander: Opening & closing and Retracting Type of [...] the umbilical fascia was closed in a tsfegg-[id number]-futgz fashion. The umbilical port site was irrigated [...] Harrison DO; Dr. Kate Stark MD~ Signed [facility]08-21-2025 Radiology Diagnostic study note [facility] Imaging Services [address] [place], [place] [address] Cholangiogram/ O R,Initial MR#: [id number] Acct: [id number] Name: MICHAEL MEJIA Sr. Rep #: [id number] : 1965 M 58 From: Wale Chaidez MD PCP: Dr. Beryl Harrison, DO Status: AD M IN Study:Cholangiogram/ O R,Initial Date of Exam : 11/09/24 Exam# [id number] Ordering Dr: [place] Castle MD PROCEDURE: CHOLANGIOGRAM/ O R,INITIAL; O.R. FLUORO FOR C-ARM 11/09/2024 REASON FOR EXAM: CHOLECYSTECTOMY WITH IOC TECHNIQUE: CHOLANGIOGRAM/ O R,INITIAL; O.R. FLUORO FOR C-ARM Fluoroscopy time: 23.9 seconds. Dose: 16.72 mGy. COMPARISON: CT examination of 11/06/2024. RAD/Cholangiogram/ O R,Initial IMPRESSION: Intraoperative fluoroscopy was performed for ERCP. Numerous fluoroscopic imageswere also obtained. Also, cholelithiasis is seen. Reading Location: [place] [address] CC: Dr. [place] Williamson MD; Dr. Beryl Harrison DO ~ Salt Cutter: Signed [facility]08-21-2025 Radiology Diagnostic study note [facility] Imaging Services [address] [place] [id number] O.R. Fluoro for C-Arm MR#: [id number] Acct: [id number] Name: MICHAEL MEJIA Sr. Rep #: [id number] : 1965 M 58 From: Wale Chaidez MD PCP: Dr. Beryl Harrison, DO Status: AD M IN Study:O.R. Fluoro for C-Arm Date of Exam: 11/09/24 Exam# [id number] Ordering Dr: [place] Castle MD PROCEDURE: CHOLANGIOGRAM/ O R,INITIAL; O.R. FLUORO FOR C-ARM 11/09/2024 REASON FOR EXAM: CHOLECYSTECTOMY WITH IOC TECHNIQUE: CHOLANGIOGRAM/ O R,INITIAL; O.R. FLUORO FOR C-ARM Fluoroscopy time: 23.9 seconds. Dose: 16.72 mGy. COMPARISON: CT examination of 11/06/2024. RAD/O.R. Fluoro for C-Arm IMPRESSION: Intraoperative fluoroscopy was performed for ERCP. Numerous fluoroscopic imageswere also obtained. Also, cholelithiasis is seen. Reading Location: [place] [address] CC: Dr. [place] Williamson MD; Dr. Beryl Harrison, DO ~ Salt Cutter: Signed [facility]08-21-2025 Consult note [facility] Medical Records Department [address] [place] [address] Pre-Anesthesia Evaluation 11/09/24 0723 MR#: [id number] Acct: [id number] Name: MICHAEL MEJIA Sr. Rep #:[id number] : 1965 58 From: Garry Turner MD PCP: Dr. 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 History - 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 technician Hx Hospitalization Any Problems With Anesthesia [...] take am of surgery PONV PONV - 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 technician: PONV - 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 technician Female HX of Motion Sickness HX of N/V After Surgery Non-Smoker Duration of Surgery greater than 60 minutes Number of Risk Factors PONV Score Height & Weight Height & Weight: Anesthesia: Height & Weight Height 5 ft 11 in 11/06/24 13:19 Weight: 97.5 kg 11/09/24 05:09 Body Mass Index (BMI) 29.9 11/05/24 16:34 Respiratory Assessment Respiratory Assessment - 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 technician: Respiratory Tract Infection Hx - 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 technician Hx Respiratory Tract Infection No 11/09/24 02:23 STOP Sleep Apnea STOP Sleep Apnea - 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 technician: STOP Sleep Apnea - 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 technician Hx Hypertension Yes 11/05/24 16:34 Hx [...] Tobacco Use History Tobacco Use History - 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 technician: Tobacco Use History - 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 technician Tobacco Use Smoking Status Former smoker 11/08/24 08:02 Hx Tobacco Use Yes 11/05/24 16:34 Years Smoking Packs Smoked per Day Smoking Cessation Date was No - quit smoking greater 11/05/24 16:34 within the last 15 years than 15 years ago Hx Smoking Cessation Date Hx Smoking Cessation Counseling Hematologic Medial History Hematologic Hx - 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 technician: 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[id number] PRN Saline Flush Sodium Chloride 250 mls @ 15 mls/hr 11/06/24 17:23 IV .[id number] PRN Additional IVPB Infusion Sodium Chloride 1,000 mls @ 15 mls/hr 11/09/24 07:00 11/09/24 07:10 IV 15 mls/hr .Q48H GILBERTO Administration Ketorolac Tromethamine 15 mg 11/05/24 16:56 Ketorolac 15 Mg/Ml Vial IV 11/10/24 16:58 Q6H PRN PRN Pain Score 1-10 Loratadine 10 mg 11/06/24 10:00 11/08/24 09:33 Loratadine 10 Mg Tablet PO 10 mg DAILY GILBETRO Administration Losartan Potassium 50 mg 11/06/24 10:00 [...] documented. 11/09/24 0723 D> Date _ Garry Juraez Signature: Date CC: ~ Signed [facility]08-20-2025 Progress note Author Micky De [facility] Note Date/Time November 08, 2024 6: 06pm [facility] Medical Records Department [address] [place] [address] Progress Note - Hospitalist 11/08/24 1804 MR#: [id number] Acct: [id number] Name: MICHAEL MEJIA Sr. Rep #:[id number] : 1965 58 From: Micky Meadows DO PCP: Dr. Beryl Harrison, Status:AD IN Location: [place] [address] Reason for Visit Chief Complaint: Abd pain [...] (Auto) 71.8 H, Lymph % (Auto) 17.6L, Bonner % (Auto) 6.9, Eos % (Auto) 2.2, [...] 35 minutes Charges/Coding Visit Charges Inpatient E&M: 72867 Subs Hosp L2 11/08/24 180 <Electronically signed by Micky Meadows DO> Cosigner Signature (if applicable): CC: ~ Signed [facility] Work Phone: 1(238) 523-202408-20-2025 Progress note [facility] Medical Records Department [address] [place] [address] Progress Note - Hospitalist 11/08/24 180 MR#: [id number] Acct: [id number] Name: MATEUSZMICHAEL A Sr. Rep #:[id number] : 1965 58 From: Micky Meadows DO PCP: Dr. Beryl Harrison, DO Status:AD M IN [facility] Reason for Visit Chief Complaint: Abd pain [...] (Auto) 71.8 H, Lymph % (Auto) 17.6L, Bonner % (Auto) 6.9, Eos % (Auto) 2.2, [...] 35 minutes Charges/Coding Visit Charges Inpatient E&M: 48174 Subs Hosp L2 11/08/24 1806 Cosigner Signature (if applicable): CC: ~ Signed [facility]08-20-2025 Progress note Author Evette Ochoa [facility] Note Date/Time November 08, 2024 8: 04am [facility] Medical Records Department [address] [place] [address] Progress Note - Surgery 11/08/24 0759 MR#: [id number] Acct: [id number] Name: MICHAEL MEJIA Sr. Rep #:[id number] : 1965 58 From: Evette THOMAS PA-C PCP: Dr. Beryl Harrison, DO Status:AD M IN Location: [place] XR449-8 Subjective Subjective Patient evaluated resting comfortably in [...] (Auto) 71.8 H, Lymph % (Auto) 17.6L, Bonner % (Auto) 6.9, Eos % (Auto) 2.2, [...] this patient Charges/Coding Visit Charges Inpatient E&M: 26002 Subs Hosp L2 11/08/24 0804 <Electronically signed by Evette THOMAS PA-C> Cosigner Signature (if applicable): CC: ~ Signed [facility] Work Phone: 1(187) 495-833808-20-2025 Progress note [facility] Medical Records Department [address] [place] [address] Progress Note - Surgery 11/08/24 0759 MR#: [id number] Acct: [id number] Name: MICHAEL MEJIA Lesley Serrano. Rep #:[id number] : 1965 58 From: Evette THOMAS PA-C PCP: Dr. Beryl Harrison, DO Status:AD M IN [facility] Subjective Subjective Patient evaluated resting comfortably in [...] (Auto) 71.8 H, Lymph % (Auto) 17.6L, Bonner % (Auto) 6.9, Eos % (Auto) 2.2, [...] Dr. Ly in Dr. Williamson's absence. He hasindependently evaluated this patient. Labs reviewed. Liver enzymes trending down Plan for cholecystectomy tomorrow morning with Dr. Williamson Continue IV antibiotics Consent in place NPO after midnight Hopeful discharge tomorrow afternoon following the procedure We will continue to monitor this patient Charges/Coding Visit Charges Inpatient E&M: 15488 Subs Hosp L2 11/08/24 0804 Cosigner Signature (if applicable): CC: ~ Signed [facility]08-19-2025 Progress note Author Micky Meadows [facility] Note Date/Time November 07, 2024 6: 54pm [facility] Medical Records Department [address] [place] [address] Progress Note - Hospitalist 11/07/24 185 MR#: [id number] Acct: [id number] Name: MICHAEL MEJIA Lesley Sr. Rep #:[id number] : 1965 58 From: Micky Meadows DO PCP: Dr. Beryl Harrison, DO Status:AD IN Location: [place] [address]-1 Reason for Visit Chief Complaint: Abd pain [...] 35 minutes Charges/Coding Visit Charges Inpatient E&M: 06620 Subs Hosp L2 11/07/241853 <Electronically signed by Micky Meadows DO> Cosigner Signature (if applicable): CC: ~ Signed [facility] Work Phone: 1(944) 270-764308-19-2025 Progress note [facility] Medical Records Department [address] [address] Progress Note - Hospitalist 11/07/241851 MR#: [id number] Acct: [id number] Name: MICHAEL MEJIA Sr. Rep #:[id number] : 1965 58 From: Micky Meadows DO PCP: Dr. Beryl Harrison, DO Status:AD M IN Location: [place] RS404-6 Reason for Visit Chief Complaint: Abd pain [...] 35 minutes Charges/Coding Visit Charges Inpatient E&M: 46629 Subs Hosp L2 11/07/24 5233 Cosigner Signature (if applicable): CC: ~ Signed [facility]08-19-2025 Progress note Author Tim Murray [facility] Note Date/Time November 07, 2024 3: 59pm [facility] Medical Records Department [address] [place] [address] Progress Note 11/07/24 1558 MR#: [id number] Acct: [id number] Name: MICHAEL MEJIA Lesley Serrano. Rep #:[id number] : 1965 58 From: Tim Murray DO PCP: Dr. Beryl Harrison, Status:AD M IN Location: [place] [address] Progress Note Patient underwent ERCP with stone [...] cholecystectomy on 11/07/2024. Visit Charges Inpatient E&M: 87125 Subs Hosp L2 11/07/24 4017 <Electronically signed by Tim Murray DO> Tim Murray DO Cosigner Signature (if applicable): CC: ~ Signed [facility] Work Phone: 1(140) 814-672208-19-2025 Progress note Author Boston Williamson [facility] Note Date/Time November 07, 2024 2: 08pm [facility] Medical Records Department [address] [place] [address] Progress Note - Surgery 11/07/24 1407 MR#: [id number] Acct: [id number] Name: MICHAEL MEJIA Sr. Rep #:[id number] : 1965 58 From: Boston mckay MD PCP: Dr. Beryl Harrison, DO Status:AD M IN Location: [place] [address] Subjective Subjective Patient is doing well and [...] this [facility] Boston Williamson MD Pager: [facility] [address] [place] [address], [address] [place] [address] Office: 11/07/24 0482 <Electronically signed by Boston Williamson MD> Cosigner Signature (if applicable): CC: ~ Signed [facility] Work Phone: 1(461) 209-938108-19-2025 Progress note [facility] Medical Records Department [address] [place], [place] [address] Progress Note 11/07/24 3626 MR#: [id number] Acct: [id number] Name: MEJIAMICHAEL Sr. Rep #:[id number] : 1965 58 From: Tim Friend DO PCP: Dr. Beryl Harrison, DO Status:AD M IN [facility] [facility] JU699-8 Progress Note Patient underwent ERCP with stone [...] cholecystectomy on 11/07/2024. Visit Charges Inpatient E&M: 19173 [facility] Hosp L2 11/07/24 4689 [facility] Friend DO Cosigner Signature (if applicable): CC: ~ Signed [facility]08-19-2025 Progress note [facility] Medical Records Department [address] [place] [address] Progress Note - Surgery 11/07/24 1407 MR#: [id number] Acct: [id number] Name: MICHAEL MEJIA Lesley Serrano. Rep #:[id number] : 1965 58 From: Boston mckay MD PCP: Dr. Beryl Harrison, DO Status:AD M IN Location: [facility] KC305-2 Subjective Subjective Patient is doing well and [...] a tertiarycare center. Boston Williamson MD Pager: [facility] [address] [place] [address], [address] [place] [address] Office: 11/07/24 4820 Cosigner Signature (if applicable): CC: ~ Signed [facility]08-19-2025 Progress note Author Micky Meadows [facility] Note Date/Time November 07, 2024 11 :50am [facility] Medical Records Department [address] [place] [address] Progress Note - Hospitalist 11/06/241853 MR#: [id number] Acct: [id number] Name: MICHAEL MEJIA Sr. Rep #:[id number] : 1965 58 From: Micky Meadows DO PCP: Dr. Beryl Harrison, DO Status:AD M IN [facility] Reason for Visit Chief Complaint: Abd pain [...] (Auto) 63.4, Lymph % (Auto) 13.1 L, Bonner % (Auto) 9.6, Eos % (Auto) 12.4 [...] Total Bilirubin 14.00 H, AST 183 H, RJN257 H, Alkaline Phosphatase 514 H, Total Protein [...] cyst dilatation of the gallbladder. Reading Location: [id number] C-Arm Fluoroscopy 11/06/24 08:30 IMPRESSION: Intraoperative fluoroscopy was performed for ERCP. Additionally, 13 fluoroscopic images were obtained. Reading Location: [facility]- Endo Retro Cholangiopancreatogram 11/06/24 08:30 IMPRESSION: Intraoperative fluoroscopy was performed for ERCP. Additionally, 13 fluoroscopic images were obtained. Reading Location: [place] [address] Physical Exam Const alert, oriented x3, no [...] 35 minutes Charges/Coding Visit Charges Inpatient E&M: 71514 Subs Hosp L2 11/07/24 1150 <Electronically signed by Micky Meadows DO> Cosigner Signature (if applicable): CC: ~ Signed [facility] Work Phone: 1(860) 641-786408-19-2025 Progress note [facility] Medical Records Department [address] [place] [address] Progress Note - Hospitalist 11/06/24 1854 MR#: [id number] Acct: [id number] Name: MATEUSZMICHAEL Lesley Sr. Rep #:[id number] : 1965 58 From: Micky Meadows DO PCP: Dr. Beryl Harrison, DO Status:AD M IN [facility] Reason for Visit Chief Complaint: Abd pain [...] (Auto) 63.4, Lymph % (Auto) 13.1 L, Bonner % (Auto) 9.6, Eos % (Auto) 12.4 [...] Total Bilirubin 14.00 H, AST 183 H, NUB463 H, Alkaline Phosphatase 514 H, Total Protein [...] cyst dilatation of the gallbladder. Reading Location: [id number] C-Arm Fluoroscopy 11/06/24 08:30 IMPRESSION: Intraoperative fluoroscopy was performed for ERCP. Additionally, 13 fluoroscopic images were obtained. Reading Location: [place] [address] Endo Retro Cholangiopancreatogram 11/06/24 08:30 IMPRESSION: Intraoperative fluoroscopy was performed for ERCP. Additionally, 13 fluoroscopic images were obtained. Reading Location: [place] [address] Physical Exam Const alert, oriented x3, no [...] 35 minutes Charges/Coding Visit Charges Inpatient E&M: 34633 Subs Hosp L2 11/07/24 1150 Cosigner Signature (if applicable): CC: ~ Signed [facility]08-18-2025 Consult note Author Vinita Goss [facility] Note Date/Time November 06, 2024 1: 46pm [facility] Medical Records Department [address] [place] [address] Anesthesia Postop Eval II 11/06/24 1346 MR#: [id number] Acct: [id number] Name: MICHAEL MEJIA Sr. Rep #:[id number] : 1965 58 From: Vinita TUCKER PCP: Dr. Beryl Harrison, DO Status:AD M IN Y Race: C Location: [place] [address] Anesthesia Postop Eval I Sum Postop Eval [...] 11/06/24 1346 <Electronically signed by Vinita Goss [employer]AMER> Date _ Vinita Wolfgang [employer]AMER Cosigner Signature: Date CC: ~ Signed [facility] Work Phone: 1(257) 461-212608-18-2025 Consult note Author Hank Reese [facility] Note Date/Time November 06, 2024 1: 01pm [facility] Medical Records Department [address] [place] [address] Anesthesia Postop Eval I 11/06/24 1300 MR#: [id number] Acct: [id number] Name: MICHAEL MEJIA Sr. Rep #:[id number] : 1965 58 From: Hank Reese PCP: Dr. Beryl Harrison, DO Status:AD M IN Y Race: C Location: [place] [address] Anesthesia: Postop Eval I Current Vital Signs [...] Reese Cosigndevika Signature: Date CC: ~ Signed [facility] Work Phone: 1(944) 635-398608-18-2025 Consult note [facility] Medical Records Department [address] [place] [address] Anesthesia Postop Eval II 11/06/24 1346 MR#: [id number] Acct: [id number] Name: MICHAEL MEJIA Sr. Rep #:[id number] : 1965 58 From: Vinita TUCKER PCP: Dr. Beryl Harrison, DO Status:AD M IN Y Race: C Location: [place] [id number] -1 Anesthesia Postop Eval I Sum Postop [...] No Complications Anesthesia Complication: No 11/06/24 1346 VELVET STEAMER> Date _ Vinita Goss [employer]ER Cosigner Signature: Date CC: ~ Signed [facility]08-18-2025 Consult note Author Tim Murray [facility] Note Date/Time November 06, 2024 11 :44am [facility] Medical Records Department [address] [place] [address] Consultation - GI 11/06/24 1140 MR#: [id number] Acct: [id number] Name: MICHAEL MEJIA Sr. Rep #:[id number] : 1965 58 From: Tim Murray DO PCP: Dr. Beryl Harrison, DO Status:AD M IN [place]: [facility] PL546-6 HPI Consult Data Date of Consult: 11/06/24 [...] the above he was given antibiotics and [facility] contacted for transfer. Upon arrival his bilirubin was 14, AST of 134, AST 150 and alkaline phosphatase of 250. [facility] Medical History Depression Anxiety HTN (hypertension) [...] (Auto) 63.4, Lymph % (Auto) 13.1 L, Bonner % (Auto) 9.6, Eos % (Auto) 12.4 [...] Total Bilirubin 14.00 H, AST 183 H, BNG647 H, Alkaline Phosphatase 514 H, Total Protein [...] cyst dilatation of the gallbladder. Reading Location: [id number] Assessment & Plan Assessment/Plan (1) Choledocholithiasis: (2) [...] of 3. Charges/Coding Visit Charges Inpatient E&M: 15730 Init Hosp L3 11/06/24 1144 <Electronically signed by Tim Murray DO> Cosigner Signature (if applicable): CC: Dr. Beryl Harrison DO~ Signed [facility] Work Phone: 1(590) 195-236108-18-2025 Consult note Author Rocky Garcia [facility] Note Date/Time November 06, 2024 11 :24am [facility] Medical Records Department [address] [place] [address] Pre-Anesthesia Evaluation 11/06/24 1113 MR#: [id number] Acct: [id number] Name: MICHAEL MEJIA . Rep #:[id number] : 1965 58 From: Rocky Garcia MD PCP: Dr. 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 History - 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 technician Hx Hospitalization Any Problems With Anesthesia [...] Yes NPO since: 00:00 PONV PONV - 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 technician: PONV - 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 technician Female HX of Motion Sickness HX of N/V After Surgery Non-Smoker Duration of Surgery greater than 60 minutes Number of Risk Factors PONV Score Height & Weight Height & Weight: Anesthesia: Height & Weight Height 5 ft 11 in 11/05/24 16:34 Weight: 97.5 kg 11/05/24 16:34 Body Mass Index (BMI) 29.9 11/05/24 16:34 Respiratory Assessment Respiratory Assessment - 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 technician: Respiratory Tract Infection Hx - 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 technician Hx Respiratory Tract Infection No 11/06/24 06:31 STOP Sleep Apnea STOP Sleep Apnea - 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 technician: STOP Sleep Apnea - 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 technician Hx Hypertension Yes 11/05/24 16:34 Hx [...] Tobacco Use History Tobacco Use History - 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 technician: Tobacco Use History - 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 technician Tobacco Use Smoking Status Former smoker 11/05/24 16:34 Hx Tobacco Use Yes 11/05/24 16:34 Years Smoking Packs Smoked per Day Smoking Cessation Date was No - quit smoking greater 11/05/24 16:34 within the last 15 years than 15 years ago Hx Smoking Cessation Date Hx Smoking Cessation Counseling Hematologic Medial History Hematologic Hx - 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 technician: 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 Hx of Blood Transfusion No 11/05/24 16:34 [...] confused, unrespo /Reproduction History /Reproductive History - 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 technician: /Reproductive Hx- 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 technician Hx Now No 11/06/24 06:31 Gestational [...] mls @ 15 mls/hr 11/05/24 16:36 IV .[id number] PRN Saline Flush Sodium Chloride 250 mls @ 15 mls/hr 11/05/24 16:36 IV .[id number] PRN Additional IVPB Infusion Sodium Chloride 1,000 [...] 10 Mg Tablet PO Not Given DAILY [facility] Losartan Potassium 50 mg 11/06/24 10:00 11/06/24 10:28 Losartan Potassium 50 Mg Tablet PO Not Given DAILY [facility] Protocol Melatonin 10 mg 11/05/24 16:56 Melatonin [...] 40 Mg Tablet PO Not Given BID [facility] Senna/Docusate Sodium 2 tablet 11/05/24 16:56 Senna/Docusate Sodium 1 Tablet PO BID PRN PRN Constipation Sodium Chloride 10 - 40 ml 11/05/24 16:36 11/06/24 09:48 0.9% Saline Lock 10 Ml Syringe IV 10 ml UD PRN Administration SALINE FLUSH [facility] Medical History Depression Anxiety HTN (hypertension) [...] MD Cosigner Signature: Date CC: ~ Signed [facility] Work Phone: 1(598) 599-541108-18-2025 Consult note [facility] Medical Records Department [address] [place] [address] Anesthesia Postop Eval I 11/06/24 1300 MR#: [id number] Acct: [id number] Name: MICHAEL MEJIA Lesley Sr. Rep #:[id number] : 1965 58 From: Hank Reese PCP: Dr. Beryl Harrison, DO Status:AD M IN Y Race: C Location: [place] [address] Anesthesia: Postop Eval I Current Vital Signs [...] Reese Cosigner Signature: Date CC: ~ Signed [facility]08-18-2025 Radiology Diagnostic study note [facility] Imaging Services [address] [place] [address] ERCP Biliary/Pancreas MR#: [id number] Acct: [id number] Name: CORBIN MEJIAZACK Sutton Sr. Rep #: [id number] : 1965 M 58 From: Wale Chaidez MD PCP: Dr. Beryl Harrison, DO Status: AD M IN Study:ERCP Biliary/Pancreas Date of Exam: 11/06/24 Exam# [id number] Ordering Dr: Abigail Murray DO PROCEDURE: ERCP BILIARY/PANCREAS; O.R. FLUORO FOR C-ARM 11/06/2024 REASON FOR EXAM: ABD PAIN TECHNIQUE: ERCP BILIARY/PANCREAS; O.R. FLUORO FOR C-ARM. Fluoroscopy time: 90.7 seconds. Dose: 50.26 mGy. COMPARISON: CT examination 11/06/2024. RAD/ERCP Biliary/Pancreas IMPRESSION: Intraoperative fluoroscopy was performed for ERCP. Additionally, 13 fluoroscopic images were obtained. Reading Location: [place] [address] CC: Dr. Beryl Harrison DO; Tim Murray DO ~ Salt Cutter: Signed [facility]08-18-2025 Radiology Diagnostic study note [facility] Imaging Services [address] [place] [address] O.R. Fluoro for C-Arm MR#: [id number] Acct: [id number] Name: MICHAEL MEJIA Sr. Rep #: [id number] : 1965 M 58 From: Wale Chaidez MD PCP: Dr. Beryl Harrison DO Status: AD M IN Study:O.R. Fluoro for C-Arm Date of Exam: 11/06/24 Exam# [id number] Ordering Dr: Abigail Murray DO PROCEDURE: ERCP BILIARY/PANCREAS; O.R. FLUORO FOR C-ARM 11/06/2024 REASON FOR EXAM: ABD PAIN TECHNIQUE: ERCP BILIARY/PANCREAS; O.R. FLUORO FOR C-ARM. Fluoroscopy time: 90.7 seconds. Dose: 50.26 mGy. COMPARISON: CT examination 11/06/2024. RAD/O.R. Fluoro for C-Arm IMPRESSION: Intraoperative fluoroscopy was performed for ERCP. Additionally, 13 fluoroscopic images were obtained. Reading Location: [place] [address] CC: Dr. Beryl Harrison DO; Tim Murray DO ~ Salt Cutter: Signed [facility]08-18-2025 Procedure note [facility] Medical Records Department [address] [place] [address] ERCP Report MR#: [id number] Acct: [id number] Name: MICHAEL MEJIA Sr. Rep #:[id number] : 1965 58 From: Tim Murray DO [...] hours 12 minutes 38 seconds Findings: The allocation analyst film was normal. The esophagus was successfully [...] bile duct. Procedure Code(s): --- Professional --- 46092, Endoscopic retrograde cholangiopancreatography (ERCP); with placement of endoscopic stent into biliary or pancreatic duct, including pre- and post-dilation and guide wire passage, when performed, including sphincterotomy, when performed, each stent 55403, Endoscopic retrograde cholangiopancreatography (ERCP); with removal of calculi/debris from biliary/pancreatic duct(s) 07703, 26, Endoscopic catheterization of the biliary ductal system, radiological supervision and interpretation CPT copyright 2021 [employer]. All rights reserved. The codes documented in this report are preliminary and upon single needle operator review may be revised to meet current compliance requirements. Tim Murray DO 11/06/2024 12:39:40 PM This report has been signed electronically. Number of Addenda: 0 Note Initiated On: 11/06/2024 11:08 AM 11/06/24 1239 Date _ Tim Murray DO Cosigner Signature: Date (if indicated) CC: Dr. Beryl Harrison DO; Tim Murray DO ~ Date Dictated: 11/06/24 1108 Date Transcribed: Salt Cutter: PHILLIP Signed [facility]08-18-2025 Procedure note [facility] Medical Records Department [address] [place] [address] Provation Physician Letter MR#: [id number] Acct: [id number] Name: MICHAEL MEJIA Sr. Rep #:[id number] : 1965 58 From: Tim Murray DO PCP: Dr. Beryl Harrison DO Status:AD M IN 11/06/2024 Beryl Harrison [...] ~ Date Dictated: 11/06/24 1108 Date Transcribed: Salt Cutter: RF Signed [facility]08-18-2025 Consult note [facility] Medical Records Department [address] [place] [address] Consultation - GI 11/06/24 1140 MR#: [id number] Acct: [id number] Name: MICHAEL MEJIA Sr. Rep #:[id number] : 1965 58 From: Tim Murray DO PCP: Dr. Beryl Harrison, DO Status:AD M IN Location: [place]3 KJ649-4 HPI Consult Data Date of Consult: 11/06/24 [...] the above he was given antibiotics and [facility] contacted for transfer. Upon arrival his bilirubin was 14, AST of 134, AST 150 and alkaline phosphatase of 250. [facility] Medical History Depression Anxiety HTN (hypertension) [...] (Auto) 63.4, Lymph % (Auto) 13.1 L, Bonner % (Auto) 9.6, Eos % (Auto) 12.4 [...] Total Bilirubin 14.00 H, AST 183 H, FRH913 H, Alkaline Phosphatase 514 H, Total Protein [...] cyst dilatation of the gallbladder. Reading Location: [id number] Assessment & Plan Assessment/Plan (1) Choledocholithiasis: (2) [...] of 3. Charges/Coding Visit Charges Inpatient E&M: 41034 Init Hosp L3 11/06/24 1144 Cosigner Signature (if applicable): CC: Dr. Beryl Harrison DO~ Signed [facility]08-18-2025 Consult note [facility] Medical Records Department [address] [place] [id number] Pre-Anesthesia Evaluation 11/06/24 1113 MR#: [id number] Acct: [id number] Name: MEJIAMICHAEL Sr. Rep #:[id number] : 1965 58 From: Rocky Garcia MD PCP: Dr. 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 History - 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 technician Hx Hospitalization Any Problems With Anesthesia [...] Yes NPO since: 00:00 PONV PONV - 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 technician: PONV - 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 technician Female HX of Motion Sickness HX of N/V After Surgery Non-Smoker Duration of Surgery greater than 60 minutes Number of Risk Factors PONV Score Height & Weight Height & Weight: Anesthesia: Height & Weight Height 5 ft 11 in 11/05/24 16:34 Weight: 97.5 kg 11/05/24 16:34 Body Mass Index (BMI) 29.9 11/05/24 16:34 Respiratory Assessment Respiratory Assessment - 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 technician: Respiratory Tract Infection Hx - 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 technician Hx Respiratory Tract Infection No 11/06/24 06:31 STOP Sleep Apnea STOP Sleep Apnea - 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 technician: STOP Sleep Apnea - 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 technician Hx Hypertension Yes 11/05/24 16:34 Hx [...] Tobacco Use History Tobacco Use History - 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 technician: Tobacco Use History - 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 technician Tobacco Use Smoking Status Former smoker 11/05/24 16:34 Hx Tobacco Use Yes 11/05/24 16:34 Years Smoking Packs Smoked per Day Smoking Cessation Date was No - quit smoking greater 11/05/24 16:34 within the last 15 years than 15 years ago Hx Smoking Cessation Date Hx Smoking Cessation Counseling Hematologic Medial History Hematologic Hx - 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 technician: 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 Hx of Blood Transfusion No 11/05/24 16:34 [...] confused, unrespo /Reproduction History /Reproductive History - 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 technician: /Reproductive Hx- 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 technician Hx Now No 11/06/24 06:31 Gestational [...] mls @ 15 mls/hr 11/05/24 16:36 IV .[id number] PRN Saline Flush Sodium Chloride 250 mls @ 15 mls/hr 11/05/24 16:36 IV .[id number] PRN Additional IVPB Infusion Sodium Chloride 1,000 [...] 10 Mg Tablet PO Not Given DAILY [facility] Losartan Potassium 50 mg 11/06/24 10:00 11/06/24 10:28 Losartan Potassium 50 Mg Tablet PO Not Given DAILY [facility] Protocol Melatonin 10 mg 11/05/24 16:56 Melatonin [...] 40 Mg Tablet PO Not Given BID [facility] Senna/Docusate Sodium 2 tablet 11/05/24 16:56 Senna/Docusate Sodium 1 Tablet PO BID PRN PRN Constipation Sodium Chloride 10 - 40 ml 11/05/24 16:36 11/06/24 09:48 0.9% Saline Lock 10 Ml Syringe IV 10 ml UD PRN Administration SALINE FLUSH [facility] Medical History Depression Anxiety HTN (hypertension) [...] MD Cosigner Signature: Date CC: ~ Signed [facility]08-18-2025 Consult note Author [place] [facility] Note Date/Time November 06, 2024 7: 27am [facility] Medical Records Department [address] [place] [address] Consultation - Surgical 11/06/24 0725 MR#: [id number] Acct: [id number] Name: MICHAEL MEJIA Sr. Rep #:[id number] : 1965 58 From: Boston mckay MD PCP: Dr. Beryl Harrison, DO Status:AD M IN Location: [place] [id number] Assessment & Plan Assessment/Plan (1) Jaundice: PLAN: The patient is obstructive jaundice. I believe Dr. Murray is ordering a repeat CT scan to evaluate the bile duct. I will be available to remove the patient's gallbladder after obstruction is been dealt with. Boston Williamson MD Pager: [facility] [address] [place] [address], [address] [place] [address] Office: HPI Consult Data Date of Consult: [...] identified. The patient's bilirubin is markedly elevated. [facility] Medical History Depression Anxiety HTN (hypertension) [...] (Auto) 63.4, Lymph % (Auto) 13.1 L, Bonner % (Auto) 9.6, Eos % (Auto) 12.4 [...] Total Bilirubin 14.00 H, AST 183 H, VDG192 H, Alkaline Phosphatase 514 H, Total Protein 6.3, Albumin 3.3 L, Globulin 2.9, Albumin/Globulin Ratio 1.1 11/06/24 0727 <Electronically signed by Boston Williamson MD> Cosigner Signature (if applicable): CC: Dr. Beryl Harrison, ~ Signed [facility] Work Phone: 1(187) 930-858208-18-2025 Radiology Diagnostic study note [facility] Imaging Services [address] [place], [place] [address] Abdomen/Pelvis W IV Cont ONLY MR#: [id number] Acct: [id number] Name: MEJIAMICHAEL Sr. Rep #: [id number] : 1965 M 58 From: Andreas Ballard MD PCP: Dr. Beryl Harrison, DO Status: AD M IN Study:Abdomen/Pelvis W IV Cont ONLY Date of E xam: 11/06/24 Exam# [id number] Ordering Dr: Abigail Murray DO PROCEDURE: ABDOMEN/PELVIS [...] Beryl Harrison DO; Tim Murray DO ~ Salt Cutter: Signed [facility]08-18-2025 Consult note [facility] Medical Records Department [address] [place] [address] Consultation - Surgical 11/06/24 0725 MR#: [id number] Acct: [id number] Name: MICHAEL MEJIA . Rep #:[id number] : 1965 58 From: Boston mckay MD PCP: Dr. Beryl Harrison, DO Status:AD M IN [place] [facility] [id number] Assessment & Plan Assessment/Plan (1) Jaundice: PLAN: The patient is obstructive jaundice. I believe Dr. Murray is ordering a repeat CT scan to evaluate the bile duct. I will be available to remove the patient's gallbladder after obstruction is been dealt with. Boston Williamson MD Pager: [facility] [address] [place] [address], [address] [place] [address] Office: HPI Consult Data Date of Consult: [...] identified. The patient's bilirubin is markedly elevated. [facility] Medical History Depression Anxiety HTN (hypertension) [...] (Auto) 63.4, Lymph % (Auto) 13.1 L, Bonner % (Auto) 9.6, Eos % (Auto) 12.4 [...] Total Bilirubin 14.00 H, AST 183 H, YYK671 H, Alkaline Phosphatase 514 H, Total Protein 6.3, Albumin 3.3 L, Globulin2.9, Albumin/Globulin Ratio 1.1 11/06/24 0727 Cosigner Signature (if applicable): CC: Dr. Beryl Harrison, DO~ Signed [facility]08-17-2025 History and physical note Author Kate Stark [facility] Note Date/Time November 05, 2024 5: 37pm [facility] Medical Records Department [address] [place] [address] H&P Exam - Hospitalist 11/05/24 1656 MR#: [id number] Acct: [id number] Name: MICHAEL MEJIA . Rep #:[id number] : 1965 58 From: Kate Stark MD PCP: Dr. Beryl Harrison, DO Status:AD M IN [place] [facility] [id number] HPI - General General Date of Admission: 11/05/24 Date of Service: 11/05/24 Chief Complaint: Abd pain and jaundince HPI Narrative MICHAEL MEJIA, is a 58-year-old male with a history of hypertension, GERD, anxiety presented to [facility] facility with 3 weeks of abdominal [...] the above he was given antibiotics and [facility] contacted for transfer. Accepting hospitalist discussed withthe GI and surgery and accepted the patient, they will be seen in consult. Patient arrived to the floor in stable condition. Evaluated patient at bedside. Patient reports history as above, he said right now his nausea and pain are little bit better after getting antibiotics and medication at the [facility] facility in [place]. When asked for ROS patient said a [...] has taken his temperature during those times. [facility] Medical History (Updated 11/05/24 @ 17:33 [...] 60 Minutes Charges/Coding Visit Charges Inpatient E&M: 10573 Init Hosp L2 11/05/24 1737 <Electronically signed by Kate Stark MD> Cosigner Signature (if applicable): CC: Dr. Beryl Harrison DO; Dr. Kate Stark MD~ Signed [facility] Work Phone: 1(281) 653-476808-17-2025 Evaluation note* Diagnosis Onset Date Resolution Status Admit Date Choledocholithiasis acute 2024 4:58pm Jaundice acute November 05, 2 025 4:58pm [facility] Work Phone: 1(820) 480-872808-17-2025 Evaluation note* Diagnosis Onset Date Resolution Status Admit Date Choledocholithiasis resolved 2024 4:58pm Jaundice resolved November 05, 2 025 4:58pm [facility] Work Phone: 1(361) 722-242908-17-2025 Evaluation note* Diagnosis Onset Date Resolution Status Admit Date Choledocholithiasis resolved 2024 4:58pm Jaundice resolved November 05, 2 025 4:58pm S/P cholecystectomy acute Septe [facility] 2024 12:59pm [facility] Work Phone: 1(372) 174-451908-17-2025 Evaluation note* Diagnosis Onset Date Resolution Status Admit Date Choledocholithiasis resolved 2024 4:58pm Jaundice resolved November 05, 2 025 4:58pm S/P cholecystectomy acute Septe [facility] 2024 12:59pm S/P cholecystectomy acute Septe [facility] 2024 1:37pm S/P ERCP acute November 28, 2024 1:37pm S/P ERCP acute January 03, 2025 9:47am [facility] Work Phone: 1(343) 629-507508-17-2025 History and physical note [facility] Medical Records Department [address] [place] [address] H&P Exam - Hospitalist 11/05/24 1656 MR#: [id number] Acct: [id number] Name: MICHAEL MEJIA Sr. Rep #:[id number] : 1965 58 From: Kate Stark MD PCP: Dr. Beryl Harrison, DO Status:AD M IN Location: [place] BV276-1 HPI - General General Date of Admission: 11/05/24 Date of Service: 11/05/24 Chief Complaint: Abd pain and jaundince HPI Narrative MICHAEL MEJIA, is a 58-year-old male with a history of hypertension, GERD, anxiety presented to [facility] with 3 weeks of abdominal pain. 2 [...] the above he was given antibiotics and [facility] contacted for transfer. Accepting hospitalist discussed [facility] GI and surgery and accepted the patient, they will be seen in consult. [facility] condition. Evaluated patient at bedside. Patient reports history as above, he said right now his nausea and pain are little bit better after getting antibiotics and medication at the [facility] facility in [place]. When asked for ROS patient said a [...] has taken his temperature during those times. [facility] Medical History (Updated 11/05/24 @ 17:33 [...] 60 Minutes Charges/Coding Visit Charges Inpatient E&M: 79812 Init Hosp L2 11/05/24 5614 Cosigner Signature (if applicable): CC: Dr. Beryl Harrison DO; Dr. Kate Stark MD~ Signed [facility] Medical Records Department [address] [place] [address] Anesthesia Postop Eval II 01/03/25 1355 MR#: [id number] Acct: [id number] Name: MICHAEL MEJIA Rep #:[id number] : 1965 59 From: Manas Painting [...] Manas Juarez Signature: Date CC: ~ Signed [facility] Author Hank Reese [facility] Note Date/Time January 03, 2025 1 :45pm [facility] Medical Records Department [address] [place] [address] Anesthesia Postop Eval I 01/03/25 1243 MR#: [id number] Acct: [id number] Name: MEJIAMICHAEL Rep #:[id number] : 1965 59 From: Hank Reese PCP: Trupti Painter NP-Jelena Status:REG S DC Y Race: C Location: [place] [address] Anesthesia: Postop Eval I Current Vital Signs [...] Hank Juarez Signature: Date CC: ~ Signed [facility] Work Phone: Consult note Author Manas Cantrell [facility] Note Date/Time January 03, 2025 1 :55pm [facility] Medical Records Department [address] [place] [address] Anesthesia Postop Eval II 01/03/25 1355 MR#: [id number] Acct: [id number] Name: MICHAEL MEJIA Rep #:[id number] : 1965 59 From: Manas Painting PCP: Trupti Painter, WARP DYEING VAT TENDER-C Status:DEP S SUMEET Y Race: C Location: [...] Cantrell MD> Date _ Manas Cantrell MD [facility] Signature: Date CC: ~ Signed [facility] Work Phone: Discharge summary Author Boston Williamson [facility] Note Date/Time November 10, 2024 11 :57am [facility] Medical Records Department [address] [place] [address] Instructions for Home/Discharge Instructions 11/10/24 1154 MR#: [id number] Acct: [id number] Name: MICHAEL MEJIA . Rep #:[id number] : 1965 58 From: Boston mckay MD [...] to schedule 2 week follow up appointment. [phone] Test Results: Test results from this visit will be discussed in further detail at your follow- up appointment, if applicable. Discharge Plan Admission Admit Date/Time: 11/05/24 16:58 Attending Provider: Micky Meadows Primary Care Provider: Beryl Harrison Consulting Providers: Boston Williamosn; Kate Stark Discharge Orders/Prescriptions Prescriptions: New oxycodone [...] DO; Dr. Kate Stark MD ~ Signed [facility] Work Phone: Discharge summary Author Micky Meadows [facility] Note Date/Time November 10, 2024 12 :12pm [facility] Medical Records Department [address] [place] [address] Instructions for Home/Discharge Instructions 11/10/24 1207 MR#: [id number] Acct: [id number] Name: MICHAEL MEJIA Sr. Rep #:[id number] : 1965 58 From: Micky Meadows DO [...] DO; Dr. Kate Stark MD ~ Signed [facility] Work Phone: Hospital Discharge instructionsAdditional Instructions Date of Discharge: 11/10/24[facility] Work Phone: Hospital Discharge instructionsAmbulatory Orders* Gastroenterology Location: None Selected [facility] Work Phone: Summary Purpose Family History No Family History Records FoundNo Family History Records FoundNo Family History Records FoundNo Family History Records FoundNo Family History Records Found Advance Directives No Advanced Directives Records Found Advance Directive Response Recorded Date/ Time Do you have a Healthcare Power of Astronomy Teacher? No November 05, 2024 4:34pm Advance Directive Response Recorded Date/ Time Do you have a Healthcare Power of Astronomy Teacher? No January 01, 2025 10:56am Do you have a Healthcare Power of Astronomy Teacher? No November 05, 2024 4:34pm Chief Complaint [...] section and content) DATE CREATED AUTHOR 09/03/2019 [facility] DATE CREATED AUTHOR AUTHOR'S ORGANIZ ATION 09/04/2019 [facility] DATE CREATED AUTHOR AUTHOR'S ORGANIZ ATION 11/13/2024 [facility] DATE CREATED AUTHOR AUTHOR'S ORGANIZ ATION 11/18/2024 [facility] DATE CREATED AUTHOR AUTHOR'S ORGANIZ ATION 01/28/2025 [facility] Care Teams (unrecognized sec tion [...] Active Star t: November 07, 2024 Dr. Kaet Stark MD Other Provider Active Star t: [...] Member Role/Relationship Status Dates Trupti Painter NP, WARP DYEING VAT TENDER-C Primary care physician Active Team Status: Active [...] physician Active Start: November 10, 2024 Dr. Micky Meadows DO Nurse Practitioner [...] 2025 End: January 03, 2025 Trupti Painter WARP DYEING VAT TENDER, WARP DYEING VAT TENDER-C Primary care physician Active Start: January 03, 2025 End: January 03, 2025 Trupti Painter NP, WARP DYEING VAT TENDER-C Referring Provider Active Start: January 03, 2025 End: January 03, 2025 Team Status: Active Member Role/Relationship Status Dates Trupti Painter NP, WARP DYEING VAT TENDER-C Primary care physician Active Start: January 03, 2025 Dr. Osvaldo Hale MD Attending physician Active Start: January 03, 2025 Dr. Tim Murray DO Referring Provider Active Start: January 03, 2025 Trupti Painter NP, WARP DYEING VAT TENDER-C Referring Provider Active Start: January 03, 2025 [...] BE BASED ON THE PRIMARY CLINICAL RECORDS. [employer] [facility]. provides no warranty or guarantee of the accuracy or completeness of information in this document.
[2025-03-15 14:42] VITALS: BMI 29.8
[2025-03-15 14:54] VITALS: BP 152/93; PULSE 65; RESP 16; TEMP 36.6; O2SAT 100
[2025-03-15] MEDS: 0.9% Normal Saline (1000mL) 1,000 ML 150 ML IV ×2 (15:04→21:49)
[2025-03-15 20:55] VITALS: BP 149/89; PULSE 64; RESP 15; TEMP 36.6; O2SAT 97
[2025-03-16] VITALS (9 sets, daily range): BP systolic 107–133; BP diastolic 70–91; PULSE 68–96; RESP 15–18; TEMP 36.7–37.1; O2SAT 92–98
[2025-03-16 04:01] LABS: Hematocrit 42.0 % (40-54); Hemoglobin 14.3 g/dL (13.0-16.5); Immature Granulocytes Count 0.010 X10^3/uL (0.0-0.0); Mean Corp Hgb Conc 34.0 g/dL (32-36); Mean Corpuscular Volume 87.0 fL (80-94); Mean Platelet Vol. 9.1 fl (6.2-12.0); NRBC Flagged by Analyzer 0 % (0-5); Platelet Count 214 K/mm3 (150-450); RBC Distribution Width CV 13.3 % (11.6-14.6); RBC Distribution Width SD 42.3 fl (35.1-43.9); Red Blood Count 4.83 M/mm3 (4.6-6.2); White Blood Count 8.2 K/mm3 (4.4-11.0)
[2025-03-16 04:43] LABS: AST(SGOT) 23 U/L (<=37); Alanine Aminotransfer ALT/SGPT 20 U/L (<=46); Albumin, Serum 3.8 g/dL (3.4-4.8); Alkaline Phosphatase 92 U/L (40-129); Anion Gap 6 (7-18); BUN 9 mg/dL (4-19); BUN/Creat Ratio 9.8 RATIO (10-20); Calcium,Total 8.8 mg/dL (7.6-11.0); Carbon Dioxide 24.5 mmol/L (20.0-29.0); Chloride 105 mmol/L (96-106); Estimated Creatinine Clearance 100.33 ml/min (50-250); Globulin 2.3 g/dL (2.2-4.2); Glucose 109 mg/dL (70-99); Potassium 4.0 mmol/L (3.5-5.1)
--- NOTE | 2025-03-16 06:00 | MRI_ITS ---
PROCEDURE: MRI ABD WITH AND W/O CONTRAST 03/16/2025 REASON FOR EXAM: PANCREATITIS TECHNIQUE: Procedure Code: MRIABDWW Modality: MR Procedure: MRI ABD WITH AND W/O CONTRAST Multiplanar and multisequence images were obtained. CONTRAST: Clariscan VOLUME: 19 mL COMPARISON: 15-Mar-2025 FINDINGS: A 2.9 x 2.3 cm mass is seen along the posterior aspect of the 3rd part of the duodenum, abutting the pancreatic head and indenting the right renal vein and IVC. It displays low T1 and heterogenous T2 signal with central areas of near fluid signal and marginal enhancement. Associated stranding of the surrounding retroperitoneal fat is noted. Relatively bulky pancreas showing homogeneous signal with no obvious restricted diffuse or parenchymal abnormal signal. No obvious pancreatic masses. Average liver showing right hepatic lobe non enhancing cysts displaying low T1 and high T2 signal with the largest 18 mm in diameter while segment 5 cyst show internal septae. Prominent biliary tracts, possibly post cholecystectomy biliary dysfunction. The portal vein and hepatic veins apple normal. The adrenals and the spleen are normal in size and signal intensity. Splenule is noted. No obvious focal lesion is identified. Duplex right kidney is noted. Both kidneys are normal in size and position. No hydronephrosis or focal enhancing masses could be seen in both kidneys. Mild perinephric fat stranding is noted. Small and large bowel loops appear largely collapsed however. Colonic diverticulosis. No obvious diverticulitis. Stomach shows no significant abnormality. No ascites or collections. No marrow infiltrative lesions. MRI/MRI Abd WITH and W/O Contrast IMPRESSION: A retroperitoneal duodeno-caval lesion seen displaying MRI signal as detailed, possibly necrotic lymph node. Advise clinical correlation, follow up, EUS &/or PET CT assessment if clinically warranted. No obvious pancreatic parenchymal abnormal signal or pancreatic masses. Stable rest of the study. Reading Location[facility] [address]
--- NOTE | 2025-03-16 07:43 | PN.HOSP_ITS ---
Reason for Visit Chief Complaint: Abdominal pain Subjective Subjective Abdomen feeling better. Attempted MRI this morning but the patient was unable to complete it given anxiety. Objective Data Objective Data Vital Signs: Vital Signs Temp Pulse Resp BP Pulse Ox O2 Del Method 37.1 C 68 16 115/70 92 Room Air 03/16/25 07:40 03/16/25 07:40 03/16/25 07:40 03/16/25 07:40 03/16/25 07:40 03/16/25 07:40 Oxygen Delivery Method Room Air Weight: 97 kg Body Mass Index (BMI) 29.8 Intake & Output: Intake and Output for Last 24 Hours 03/14/25 03/15/25 03/16/25 23:59 23:59 23:59 Intake Total 1300 / 1300 1000 / 1000 Balance 1300 / 1300 1000 / 1000 Lab / Micro Data 03/16/25 03:20 03/16/25 03:20 Labs: Laboratory Results - last 24 hr 03/15/25 11:20: WBC 7.9, RBC 5.43, Hgb 15.8, Hct 45.9, MCV 84.5, MCH 29.1, MCHC 34.4, RDW Std Deviation 41.1, RDW Coeff of Selene 13.2, Plt Count 246, MPV 9.3, Immature Gran % (Auto) 0.300, Neut % (Auto) 70.5 H, Lymph % (Auto) 18.8 L, [place] % (Auto) 8.1, Eos % (Auto) 1.4, Baso % (Auto) 0.9, Absolute Neuts (auto) 5.6, Absolute Lymphs (auto) 1.49, Nucleated RBC % 0, Sodium 138, Potassium 4.0, Chloride 103, Carbon Dioxide 24.2, Anion Gap 11, BUN 15, Creatinine 1.00, Estim Creat Clear Calc 93.98, Est GFR (MDRD) Non-Af 86, BUN/Creatinine Ratio 15.0, G lucose 130 H, Lactic Acid 1.6, Calcium 9.4, Total Bilirubin 0.70, AST 23, ALT 25, Alkaline Phosphatase 105, Total Protein 7.0, Albumin 4.3, Globulin 2.7, Albumin/Globulin Ratio 1.6, Lipase 26 03/15/25 12:00: Urine Color Yellow, Urine Clarity Clear, Urine pH 7.0, Ur Specific [place] 1.010, Urine Protein 15 H, Urine Glucose (UA) Normal, Urine Ketones Negative, Urine Occult Blood Negative, Urine Nitrite Negative, Urine Bilirubin Negative, Urine Urobilinogen Normal, Ur Leukocyte Esterase Negative, Urine RBC 0 SEEN, Urine WBC 0 SEEN, Ur Squamous Epith Cells 0 SEEN, Urine Bacteria 0 SEEN, Urine Mucus 0 SEEN 03/16/25 03:20: WBC 8.2, RBC 4.83, Hgb 14.3, Hct 42.0, MCV 87.0, MCH 29.6, MCHC 34.0, RDW Std Deviation 42.3, RDW Coeff of Selene 13.3, Plt Count 214, MPV 9.1, Immature Gran % (Auto) 0.100, Neut % (Auto) 64.5, Lymph % (Auto) 22.3, [place] % (Auto) 10.0, Eos % (Auto) 2.2, Baso % (Auto) 0.9, Absolute Neuts (auto) 5.3, Absolute Lymphs (auto) 1.82, Nucleated RBC % 0, Sodium 136, Potassium 4.0, Chloride 105, Carbon Dioxide 24.5, Anion Gap 6 L, BUN 9, Creatinine 0.93, Estim Creat Clear Calc 100.33, Est GFR (MDRD) Non-Af 94, BUN/Creatinine Ratio 9.8 L, G lucose 109 H, Calcium 8.8, Total Bilirubin 0.75, AST 23, ALT 20, Alkaline Phosphatase 92, Total Protein 6.2, Albumin 3.8, Globulin 2.3, Albumin/Globulin Ratio 1.6 Radiography Diagnostic Testing: Radiology Impression Abdomen/Pelvis CT 03/15/25 11:44 IMPRESSION: Acute pancreatitis. Posterior and inferior to the pancreatic body, there is a fluid attenuated lesion measuring up to 2.6 cm previously this was seen of the soft tissue nodule/lymph node measuring up to 1.7 cm. This could represent a necrotic lymph node. Further evaluation with MRI of the abdomen with contrast is recommended. Dilated intrahepatic and extrahepatic biliary ducts. Bilateral fat containing inguinal hernia, worse on the left. Fat containing umbilical hernia is noted. Reading Location: [facility] Physical Exam Const alert and no apparent distress HEENT head/scalp atraumatic and moist oral mucous membranes Resp normal respiratory effort and no retractions GI GI Narrative: minimal epigastric discomfort. no rebound tenderness. Neuro Sensorium / Orientation: awake and alert Assessment & Plan Assessment/Plan (1) Acute pancreatitis: PLAN: Unclear etiology at this time. There was noted acute pancreatitis on the CAT scan the lipase is only 26. Treatment at this time will include IV fluids, pain control, antiemetics. Will check an MRI of the abdomen with and without contrast. There was an area of concern for a potential necrotic lymph node and was recommended by radiology due to due to MRI with contrast. Based on the results of the MRI it may need to involve gastroenterology. MRI attempted earlier today, but cancelled given patient anxiety with the test. Will have lorazepam ordered so that it may be reattempted. PLAN: Plan Hypertension: Continue losartan Depression/anxiety continue with sertraline VTE prophylaxis with enoxaparin CODE STATUS: Addressed with the patient. Patient wishes to be full code Charges/Coding Visit Charges Inpatient E&M: 93715 Subs Hosp L2
[2025-03-16] MEDS: 0.9% Saline Lock 10 ML Syringe IV (14:13)
--- NOTE | 2025-03-16 15:27 | CASEMGMT ---
Dx:pancreatitis LACE:1 6-Clicks:24 Medical record reviewed and patient evaluated for identification of discharge planning needs. Based on this review, at this time criteria are not present to indicate a need for discharge planning. Will remain available to assist with discharge planning needs as identified or requested.
[2025-03-17 04:00] VITALS: BP 119/80; PULSE 69; RESP 14; TEMP 37.1; O2SAT 96
[2025-03-17 06:43] LABS: Hematocrit 41.0 % (40-54); Hemoglobin 14.0 g/dL (13.0-16.5); Immature Granulocytes Count 0.020 X10^3/uL (0.0-0.0); Mean Corp Hgb Conc 34.1 g/dL (32-36); Mean Corpuscular Volume 84.5 fL (80-94); Mean Platelet Vol. 9.6 fl (6.2-12.0); NRBC Flagged by Analyzer 0 % (0-5); Platelet Count 225 K/mm3 (150-450); RBC Distribution Width CV 13.1 % (11.6-14.6); RBC Distribution Width SD 40.8 fl (35.1-43.9); Red Blood Count 4.85 M/mm3 (4.6-6.2); White Blood Count 8.1 K/mm3 (4.4-11.0)
[2025-03-17 07:08] LABS: AST(SGOT) 22 U/L (<=37); Alanine Aminotransfer ALT/SGPT 18 U/L (<=46); Albumin, Serum 3.8 g/dL (3.4-4.8); Alkaline Phosphatase 92 U/L (40-129); Anion Gap 10 (7-18); BUN 9 mg/dL (4-19); BUN/Creat Ratio 10.4 RATIO (10-20); Calcium,Total 8.9 mg/dL (7.6-11.0); Carbon Dioxide 24.2 mmol/L (20.0-29.0); Chloride 105 mmol/L (96-106); Estimated Creatinine Clearance 103.68 ml/min (50-250); Globulin 2.6 g/dL (2.2-4.2); Glucose 94 mg/dL (70-99); Potassium 3.7 mmol/L (3.5-5.1)
[2025-03-17 08:15] VITALS: BP 123/84; PULSE 62; RESP 17; TEMP 36.3; O2SAT 96
--- NOTE | 2025-03-17 09:07 | PN.HOSP_ITS ---
Reason for Visit Chief Complaint: Abdominal pain Subjective Subjective Feeling better. Still with some abdominal discomfort. Objective Data Objective Data Vital Signs: Vital Signs Temp Pulse Resp BP Pulse Ox O2 Del Method 36.3 C L 62 17 123/84 H 96 Room Air 03/17/25 08:15 03/17/25 08:15 03/17/25 08:15 03/17/25 08:15 03/17/25 08:15 03/17/25 08:15 Oxygen Delivery Method Room Air Weight: 97 kg Body Mass Index (BMI) 29.8 Intake & Output: Intake and Output for Last 24 Hours 03/15/25 03/16/25 03/17/25 23:59 23:59 23:59 Intake Total 1300 / 1300 1000 / 1400 650 / 650 Balance 1300 / 1300 1000 / 1400 650 / 650 Lab / Micro Data 03/17/25 05:44 03/17/25 05:44 Labs: Laboratory Results - last 24 hr 03/17/25 05:44: WBC 8.1, RBC 4.85, Hgb 14.0, Hct 41.0, MCV 84.5, MCH 28.9, MCHC 34.1, RDW Std Deviation 40.8, RDW Coeff of Selene 13.1, Plt Count 225, MPV 9.6, Immature Gran % (Auto) 0.200, Neut % (Auto) 66.0, Lymph % (Auto) 21.6, [place] % (Auto) 9.2, Eos % (Auto) 2.4, Baso % (Auto) 0.6, Absolute Neuts (auto) 5.3, Absolute Lymphs (auto) 1.74, Nucleated RBC % 0, Sodium 139, Potassium 3.7, Chloride 105, Carbon Dioxide 24.2, Anion Gap 10, BUN 9, Creatinine 0.90, Estim Creat Clear Calc 103.68, Est GFR (MDRD) Non-Af 97, BUN/Creatinine Ratio 10.4, Glucose 94, Calcium 8.9, Total Bilirubin 0.85, AST 22, ALT 18, Alkaline Phosphatase 92, Total Protein 6.4, Albumin 3.8, Globulin 2.6, Albumin/Globulin Ratio 1.5 Radiography Diagnostic Testing: Radiology Impression Abdomen MRI 03/16/25 06:00 IMPRESSION: A retroperitoneal duodeno-caval lesion seen displaying MRI signal as detailed, possibly necrotic lymph node. Advise clinical correlation, follow up, EUS &/or PET CT assessment if clinically warranted. No obvious pancreatic parenchymal abnormal signal or pancreatic masses. Stable rest of the study. Reading Location: [place] [id number] Physical Exam Const alert and no apparent distress HEENT head/scalp atraumatic and moist oral mucous membranes Cardio regular rate, regular rhythm, S1 normal heart sound and S2 normal heart sound GI normal to inspection, nondistended, normoactive bowel sounds, soft to palpation and non-tender Neuro Sensorium / Orientation: awake and alert Assessment & Plan Assessment/Plan (1) Acute pancreatitis: PLAN: CT positive, but no pancreatitis on MRI. May have been due to a transient choledocholithiasis. Treatment at this time will include IV fluids, pain control, antiemetics. MRI abd showing a retroperitoneal duodeno-caval lesion, possibly a necrotic lymph node DW Dr. Murray, recommending endoscopic ultrasound, but can be performed as outpt. PLAN: Plan Hypertension: Continue losartan Depression/anxiety continue with sertraline VTE prophylaxis with enoxaparin CODE STATUS: Addressed with the patient. Patient wishes to be full code
--- NOTE | 2025-03-17 10:25 | EX.PCM.CON.G ---
HPI Consult Data Date of Consult: 03/17/25 HPI Narrative Reason for Consultation: Pancreatitis HPI Narrative: DOTTIE CHILD, is a 59 M who presented as a transfer from an outside hospital for obstructive jaundice. He admits to developing abdominal pain approximately 2 weeks ago. 2 weeks ago he had a CT abdomen and pelvis with contrast which showed thickening of the gallbladder but no other acute abnormalities. His pain got progressively worse. 4 days ago he had an ultrasound that showed common bile duct of 11 mm, in the ED today his bilirubin was found to be 15 and imaging showed gallbladder sludge and stones. Patient suspected to have choledocholithiasis, given the above he was given antibiotics and [facility] contacted for transfer. Upon arrival his bilirubin was 14, AST of 134, AST 150 and alkaline phosphatase of 250. He underwent ERCP with stone removal and stent placement. He came back 2 months later for stent removal after undergoing successful cholecystectomy. Patient been doing well up until yesterday where he started having generalized abdominal pain. Just got worse. Describes mostly abdominal pain above his umbilicus. Presented emergency room where his lipase was normal but his CAT scan showed acute pancreatitis and posterior and inferior to the pancreatic body fluid attenuated lesion measuring up to 2.6 cm this previously seen. On the differential diagnosis was a a necrotic lymph node. MRI/MRI Abd WITH and W/O Contrast IMPRESSION: A retroperitoneal duodeno-caval lesion seen displaying MRI signal as detailed, possibly necrotic lymph node. Advise clinical correlation, follow up, EUS &/or PET CT assessment if clinically warranted. No obvious pancreatic parenchymal abnormal signal or pancreatic masses. [facility] Medical History Wears glasses DVT (deep venous thrombosis) Gastric reflux Chewing tobacco dependence Former smoker Sleep apnea Shortness of breath on exertion Depression Anxiety HTN (hypertension) Appendicitis Home Medications ?Medication ?Instructions ?Recorded ?Last Taken ?Type cetirizine 10 mg tablet (Allergy 10 mg PO DAILY allergies 11/05/24 01/02/25 History Relief (cetirizine)) losartan 50 mg tablet 50 mg PO DAILY blood pressure 11/05/24 01/03/25 History pantoprazole 40 mg tablet,delayed 40 mg PO BID gerd 11/05/24 01/03/25 History release sertraline 100 mg tablet 100 mg PO DAILY anxiety 11/05/24 01/02/25 History aspirin 81 mg tablet 81 mg PO QDAY 11/28/24 12/24/24 History Allergy/AdvReac Type Severity Reaction Status Date / Time azithromycin (From Zithromax) Allergy Severe Rash Verified 03/15/25 11:00 adhesive Allergy Intermediate Rash Verified 03/15/25 11:00 Surgical History Hx of appendectomy History of ERCP Hx of tonsillectomy S/P cholecystectomy H/O sinus surgery H/O hernia repair Social History Smoking Status: Current every day smoker tobacco type: smokeless tobacco alcohol intake: former substance use type: does not use what type of physical activity do you participate in: none ROS Constitutional Constitutional: Denies fatigue, fever(s), poor appetite, weight gain or weight loss Gastrointestinal Gastrointestinal: Denies belching, bloating, change in bowel habits, change in stool character, chewing difficulty, coffee ground emesis, constipation, cramping, diarrhea, dyspepsia, dysphagia, early satiety, excessive flatus, fecal incontinence, heartburn, hematemesis, hematochezia, hemorrhoids, loose stools, melena, nausea, odynophagia, rectal bleeding, tenesmus, vomiting or weight changes Physical Exam Const alert, oriented x3, no apparent distress and healthy appearing General Appearance: cooperative GI normal to inspection, nondistended, normoactive bowel sounds, soft to palpation, non-tender and non-distended Percussion: normal to percussion Rectal Exam: deferred Lab / Micro Data 03/17/25 05:44 03/17/25 05:44 Labs: Laboratory Results - last 24 hr 03/17/25 05:44: WBC 8.1, RBC 4.85, Hgb 14.0, Hct 41.0, MCV 84.5, MCH 28.9, MCHC 34.1, RDW Std Deviation 40.8, RDW Coeff of Selene 13.1, Plt Count 225, MPV 9.6, Immature Gran % (Auto) 0.200, Neut % (Auto) 66.0, Lymph % (Auto) 21.6, [place] % (Auto) 9.2, Eos % (Auto) 2.4, Baso % (Auto) 0.6, Absolute Neuts (auto) 5.3, Absolute Lymphs (auto) 1.74, Nucleated RBC % 0, Sodium 139, Potassium 3.7, Chloride 105, Carbon Dioxide 24.2, Anion Gap 10, BUN 9, Creatinine 0.90, Estim Creat Clear Calc 103.68, Est GFR (MDRD) Non-Af 97, BUN/Creatinine Ratio 10.4, Glucose 94, Calcium 8.9, Total Bilirubin 0.85, AST 22, ALT 18, Alkaline Phosphatase 92, Total Protein 6.4, Albumin 3.8, Globulin 2.6, Albumin/Globulin Ratio 1.5 Imaging Radiology Impression Abdomen MRI 03/16/25 06:00 IMPRESSION: A retroperitoneal duodeno-caval lesion seen displaying MRI signal as detailed, possibly necrotic lymph node. Advise clinical correlation, follow up, EUS &/or PET CT assessment if clinically warranted. No obvious pancreatic parenchymal abnormal signal or pancreatic masses. Stable rest of the study. Reading Location: [place] [id number] Assessment & Plan Assessment/Plan (1) Acute pancreatitis: PLAN: ?Assessment Acute pancreatitis:?Likely mild, based on normal lipase (though imaging is positive) and presentation. The cause is likely related to the prior choledocholithiasis episode (transient stone passage) or potentially the recent ERCP/stent removal procedure if it occurred immediately prior to symptom onset (though timeline suggests the cholecystectomy was 2 months ago and stent removal was part of that timeline). Retroperitoneal/Duodeno-caval lesion (2.6 cm):?Etiology is uncertain. Differentials include a necrotic lymph node (as suggested by imaging reports), an inflammatory process related to the pancreatitis, a post-surgical change, or a less likely neoplastic process. History of choledocholithiasis status post cholecystectomy and ERCP:?Patient has been doing well until yesterday's pain onset. Plan Acute Pancreatitis Management: Continue IV fluid hydration with Lactated Ringer's, and pain management. Monitor clinical symptoms, serial vital signs, and labs (CBC, CMP, Lipase, CRP). Advance diet as tolerated when symptoms resolve. Evaluation of the Retroperitoneal Lesion: Given the uncertain etiology of the duodeno-caval lesion and recommendations from the imaging report, further assessment is warranted. Discussed options with patient: Endoscopic Ultrasound (EUS) for better visualization and potential biopsy versus PET CT scan for metabolic assessment if clinically warranted (concern for malignancy). Check CA 19-9 Portions of this note were generated using voice recognition software (kubo financ[employer] Dictation). I have reviewed the contents and every effort has been made to ensure accuracy; however, inadvertent errors in grammar, spelling, punctuation, or word choice may occur, that were not noted before signing the document and should not alter the intended clinical meaning. Charges/Coding Visit Charges Inpatient E&M: 62569 Init Hosp L3
[2025-03-17] MEDS: 0.9% Saline Lock 10 ML Syringe IV (13:29)
--- NOTE | 2025-03-17 13:30 | PCM.DC.SUM ---
Providers Date of Admission: 03/15/25 Primary Care Physician: SANDRINE Walker Consultations 03/17/25 09:11 Consult: Gastroenterology Routine Consulting Provider: Adri Gastroenterivonne Reason for Consult: abnormal MRCP EMERGENT Consult: No MD Notified: Yes Date Notified: 03/17/25 Time Notified: 09:12 Method of Notification: Text Reason For Visit: PANCREATITIS Diagnosis Discharge Diagnosis (1) Acute pancreatitis: Status: Acute Code(s): K85.90 - Acute pancreatitis without necrosis or infection, unspecified Plan: CT positive, but no pancreatitis on MRI. May have been due to a transient choledocholithiasis. Treatment at this time will include IV fluids, pain control, antiemetics. MRI abd showing a retroperitoneal duodeno-caval lesion, possibly a necrotic lymph node DW Dr. Murray, recommending endoscopic ultrasound, but can be performed as outpt. Plan Hypertension: Continue losartan Depression/anxiety continue with sertraline VTE prophylaxis with enoxaparin CODE STATUS: Addressed with the patient. Patient wishes to be full code Medications at Discharge Home Medications cetirizine 10 mg tablet (Allergy Relief (cetirizine)) 10 mg PO DAILY allergies 11/05/24 losartan 50 mg tablet 50 mg PO DAILY blood pressure 11/05/24 pantoprazole 40 mg tablet,delayed release 40 mg PO BID gerd 11/05/24 sertraline 100 mg tablet 100 mg PO DAILY anxiety 11/05/24 aspirin 81 mg tablet 81 mg PO QDAY 11/28/24 acetaminophen 500 mg tablet 1,000 mg (2 x 500 mg) PO Q8 PRN Pain #0 tabs 03/17/25 Hospital Course Operations None Procedures None Summary of Care Provided Hospital Course: Patient presented with abdominal pain. CAT scan was positive for pancreatitis but lipase was normal. Patient had MRCP that was negative for pancreatitis. Though it was concerning for a retroperitoneal duodenal caval lesion. Etiology is unclear at this time but gastroenterology was consulted who recommended endoscopic ultrasound but this can be done as outpatient. Patient's abdominal pain may have been due to transient pancreatitis possibly related with choledocholithiasis though the patient is status postcholecystectomy. Patient is feeling well and tolerating diet and will be discharged home. Weight / BMI Weight Weight: 97 kg Body Mass Index (BMI) 29.8 ABG / Lab / Microbiology Data 03/17/25 05:44 03/17/25 05:44 Laboratory: Laboratory Results - last 24 hr 03/17/25 05:44: WBC 8.1, RBC 4.85, Hgb 14.0, Hct 41.0, MCV 84.5, MCH 28.9, MCHC 34.1, RDW Std Deviation 40.8, RDW Coeff of Selene 13.1, Plt Count 225, MPV 9.6, Immature Gran % (Auto) 0.200, Neut % (Auto) 66.0, Lymph % (Auto) 21.6, [place] % (Auto) 9.2, Eos % (Auto) 2.4, Baso % (Auto) 0.6, Absolute Neuts (auto) 5.3, Absolute Lymphs (auto) 1.74, Nucleated RBC % 0, Sodium 139, Potassium 3.7, Chloride 105, Carbon Dioxide 24.2, Anion Gap 10, BUN 9, Creatinine 0.90, Estim Creat Clear Calc 103.68, Est GFR (MDRD) Non-Af 97, BUN/Creatinine Ratio 10.4, Glucose 94, Calcium 8.9, Total Bilirubin 0.85, AST 22, ALT 18, Alkaline Phosphatase 92, Total Protein 6.4, Albumin 3.8, Globulin 2.6, Albumin/Globulin Ratio 1.5 Radiography Diagnostic Testing: Radiology Impression Abdomen MRI 03/16/25 06:00 IMPRESSION: A retroperitoneal duodeno-caval lesion seen displaying MRI signal as detailed, possibly necrotic lymph node. Advise clinical correlation, follow up, EUS &/or PET CT assessment if clinically warranted. No obvious pancreatic parenchymal abnormal signal or pancreatic masses. Stable rest of the study. Reading [facility] D/C Instructions DC O2, CPAP, BIPAP Needs Home O2 Discharge instructions: No Meaningful Use Info Meaningful Use Meaningful Use Diagnoses (Choose all that apply): None applicable Discharge Plan Admission Admit Date/Time: 03/15/25 13:29 Primary Reason for Your Visit: pancreatitis Attending Provider: Tony Holden Primary Care Provider: Lucia Yoon NP Consulting Providers: Carlos Morrison; Tim Murary; Yeni Chen; Debi Mead; Eleanor Hughes Instructions Additional Instructions / Restrictions: You had abdominal pain which after further discussion with Dr. Murray feels that it may have been just mild case of pancreatitis possible degree of the stone even though your gallbladder has been removed. There was an area in your abdomen that would need to be further evaluated with an endoscopic ultrasound which Dr. Albert can do as outpatient. Please follow-up Dr. Murray to have this performed. If you have any worsening abdominal pain, notify your physician or return to the emergency room. Discharge Orders/Prescriptions Prescriptions: New acetaminophen 500 mg Tablet 1,000 mg PO Q8 PRN (Reason: Pain) Qty: 0 0RF Continued aspirin 81 mg tablet 81 mg PO QDAY pantoprazole 40 mg tablet,delayed release (DR/EC) 40 mg PO BID sertraline 100 mg tablet 100 mg PO DAILY losartan 50 mg tablet 50 mg PO DAILY cetirizine [Allergy Relief (cetirizine)] 10 mg tablet 10 mg PO DAILY Referrals / Follow Up: Tim Murray DO [Med Staff - Active Staff, Gastroenterology] - Within 1 Month Lucia Yoon NP, [facility] [Primary Care Provider, Internal Medicine] - Within 2 Weeks Disposition Disposition (needs filled in before D/C Order can be placed): Home, Self Care Charges/Coding Visit Charges Inpatient E&M: 20230 Disch Hosp
[2025-03-17 14:00] VITALS: BP 128/79; PULSE 87; RESP 17; TEMP 37.1; O2SAT 99
== END 2025-03-17 15:52 | disposition home or self-care (01) | DRG 440 ==
LOC: ED 13:28 → MS3 14:08
PROVIDERS: Emergency Provider Student in an Organized Health Care Education/Training Program; PCP Nurse Practitioner Family
DX: K85.90 Acute pancreatitis without necrosis or infection, unspecified (principal); K80.50 Calculus of bile duct without cholangitis or cholecystitis without obstruction; F32.A Depression, unspecified; I10 Essential (primary) hypertension; I73.9 Peripheral vascular disease, unspecified; F17.290 Nicotine dependence, other tobacco product, uncomplicated; K31.89 Other diseases of stomach and duodenum; F41.9 Anxiety disorder, unspecified; K21.9 Gastro-esophageal reflux disease without esophagitis; Z90.49 Acquired absence of other specified parts of digestive tract; Z87.19 Personal history of other diseases of the digestive system; Z79.82 Long term (current) use of aspirin; Z86.718 Personal history of other venous thrombosis and embolism; Z98.890 Other specified postprocedural states; Z79.899 Other long term (current) drug therapy
CPT/HCPCS: 36415; 74177; 74183; 80053; 81001; 83605; 83690; 85025; 99284; 99406; A9575; Q9967; A4216; J2405